=== PATIENT | male | born 1930 | race Caucasian/White ===

== ENCOUNTER 2018-02-18 19:05 | Inpatient (IN) | END 2018-03-06 21:28 | DRG 871 ==

== ENCOUNTER 2018-03-27 17:51 | Inpatient (IN) | payer MEDICARE, MEDICAID ==
[~2018-03-27] VITALS: Ht 177.8 cm; Wt 63.7 kg
[~2018-03-27 17:51] MED LIST: ACET325S PO; ASC500 PO; BISA10SU75 PR; DOCU-159 PO; ERTA1VIA IV; FAMO20TA18 PO; LACTINEX PO; MULT-105 PO; ONDA4TAB13 PO; POLY17PO6 PO; PROT946L PO; TAMS0.4C2 PO
[2018-03-27] MEDS ORDERED: ONDANSETRON 4 MG INJ IV STA (18:33)
[2018-03-27] MEDS ORDERED: SOD CHLORIDE 0.9% 1,000 ML IV STA (18:33)
--- NOTE | 2018-03-27 18:59 | ERD ---
ER Documentation Chief Complaint Chief Complaint BIB RA 83 fr Koko Rousseau: coffee ground emesis x1 HPI 88-year-old elderly man with multiple medical conditions brought in by EMS from [facility] facility for coffee-ground emesis. Episode occurred one time today. He has had no documented fevers, no diarrhea, no complaints of chest pain or shortness of breath although HPI was limited as patient is nonverbal. It was supplemented by reviewing past medical records, reviewing senior living records, speaking to EMS, nursing staff ROS All systems reviewed and are negative except as per history of present illness. Medications Home Meds Reported Medications Triamcinolone Acetonide* (Kenalog*) 0.1%-15GM Cr, 1 APPLIC TOP BID, #1 TUB 03/27/18 Collagenase* (Santyl*) 30 Gm Oint..gm., 1 APPLIC TOP .SOILED PRN for SOILED, #1 TUB 03/27/18 Hydrocodone/Acetaminophen ([place] 5-325 Tablet) 1 Each Tablet, 1 EACH PO Q6H PRN for MILD PAIN LEVEL 1-3, TAB 03/27/18 Hydrocodone/Acetaminophen ([place] 5-325 Tablet) 1 Each Tablet, 1 EACH PO DAILY PRN for WOUND CARE, TAB 03/27/18 Memantine* (Namenda* XR) 28 Mg Cap.spr.24, 28 MG PO DAILY, #30 TAB START TAKING-04/01/18 03/27/18 Memantine* (Namenda* XR) 21 Mg Cap.spr.24, 21 MG PO DAILY, #30 TAB FOR 7 DAYS,STOP TAKING 04/01/18 03/27/18 Enoxaparin Sodium* (Enoxaparin Sodium*) 30 Mg/0.3 Ml Syringe, 30 MG SC DAILY, SYR 03/27/18 Tamsulosin Hcl* (Tamsulosin Hcl*) 0.4 Mg Cap.er.24h, 0.4 MG PO HS, CAP 02/18/18 Protein Supplement (Promod) 946 Ml Liquid, 30 ML PO TID 02/18/18 Ondansetron Hcl* (Zofran*) 4 Mg Tab, 4 MG PO Q6H PRN for NAUSEA AND OR VOMITING, TAB 02/18/18 Multivitamin with Minerals (Multivitamins with Minerals) 1 Each Tablet, 1 EACH PO DAILY, TAB 02/18/18 Lactobacillus Acidophilus* (Lactinex*) 1 Tab Chew, 1 TAB PO BID, TAB 02/18/18 Famotidine* (Famotidine*) 20 Mg Tablet, 20 MG PO DAILY, #30 TAB 02/18/18 Docusate Sodium* (Docusate Sodium*) 100 Mg Capsule, 100 MG PO BID, #60 CAP 02/18/18 Bisacodyl* (Bisacodyl*) 10 Mg Supp, 10 MG UT Q24H for CONSTIPATION, SUPP 02/18/18 Ascorbic Acid (Vitamin C) 500 Mg Tab, 500 MG PO DAILY, TAB 02/18/18 Discontinued Reported Medications Polyethylene Glycol* (Miralax*) 17 Gm Powd.pack, 17 GM PO NEEDED, #30 PACKET 02/18/18 Ertapenem Sodium (Invanz) 1 Gm Vial.port, 1 GM IV DAILY FOR 7 DAYS. START DATE 02/13/18, END DATE 02/20/18. 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, chronic pressure ulcers, protein calorie malnutrition, functional quadriplegia, dementia, BPH, history of DVT Anesthesia Reaction: No Hx Cardiac Disorders: Yes (HTN) Hx Psychiatric Problems: No Hx Miscellaneous Medical Probl: Yes (sacral wound, HTN) Hx Alcohol Use: No Hx Substance Use: No Hx Tobacco Use: No Smoking Status: Never smoker Physical Exam Vitals Vital Signs Date Temp Pulse Resp B/P (MAP) Pulse Ox O2 O2 Flow FiO2 Time Delivery Rate 03/27/18 110 34 110/60 98 Room Air 19:33 (77) 03/27/18 99.1 122 14 101/63 100 Room Air 19:05 (76) 03/27/18 97.3 136 26 90/66 (74) 95 18:02 Physical Exam GENERAL: Elderly, chronically debilitated man, afebrile HEENT: Dry mucous membranes,, no cervical spine tenderness or step-off deformities, no goiter, no jaundice or icterus, extraocular movements intact without pain. NEURO: Eyes open, pupils equal round reactive to light, moves upper extremities, nonverbal, no facial asymmetry CARDIAC: Tachycardic and regular, no murmurs rubs or gallops LUNGS: Poor breath sounds, no crackles wheezing or stridor ABDOMEN: Firm nontender abdomen, no guarding or rigidity SKIN: Warm and dry to touch, no abrasions, contusions, or hematomas, no lacerations, no ecchymosis, no target lesions, and without ulcers EXTREMITIES: No clubbing cyanosis or edema, calves are bilaterally symmetrical, no Homans sign, no popliteal cord sign. Distal pulses equal and bilateral PSYCH: Unable to assess Result Diagram: 03/27/18 1840 03/27/18 1950 Results 24 hrs Laboratory Tests Test 03/27/18 18:40 03/27/18 19:00 03/27/18 19:50 White Blood Count 31.0 10^3/ul Red Blood Count 4.20 10^6/ul Hemoglobin 11.9 g/dl Hematocrit 37.8 % Mean Corpuscular Volume 90.0 fl Mean Corpuscular Hemoglobin 28.3 pg Mean Corpuscular 31.5 g/dl Hemoglobin Concent Red Cell Distribution Width 17.5 % Platelet Count 312 10^3/UL Mean Platelet Volume 12.3 fl Immature Granulocytes % 0.500 % Neutrophils % % Segmented Neutrophils 70 % % (Manual) Band Neutrophils % (Manual) 25 % Lymphocytes % % Lymphocytes % (Manual) 3 % Reactive Lymphocytes % (Manual) 1 % Monocytes % % Eosinophils % % Eosinophils % (Manual) 1 % Basophils % % Nucleated Red Blood Cells % 0.0 /100WBC Immature Granulocytes # 0.150 10^3/ul Neutrophils # 10^3/ul Neutrophils # (Manual) 24.1 10^3/ul Band Neutrophils # 7.7 10^3/ul Lymphocytes (Manual) 0.9 10^3/ul Lymphocytes # 10^3/ul Reactive Lymphocytes # 0.3 10^3/ul Monocytes # 10^3/ul Eosinophils # 10^3/ul Basophils # 10^3/ul Nucleated Red Blood Cells # 10^3/ul Platelet Estimate NORMAL Giant Platelets 2 % Polychromasia 1+ Poikilocytosis 1+ Anisocytosis 1+ Prothrombin Time 14.5 Sec Prothrombin Time Ratio 1.1 INR International 1.11 Normalized Ratio Activated Partial Thromboplast 30.5 Sec Time Urine Color YELLOW Urine Clarity CLOUDY Urine pH 5.0 Urine Specific [place] 1.013 Urine Ketones NEGATIVE mg/dL Urine Nitrite NEGATIVE mg/dL Urine Bilirubin NEGATIVE mg/dL Urine Urobilinogen 1+ mg/dL Urine Leukocyte Esterase 3+ Yoselin/ul Urine Microscopic RBC 6 /HPF Urine Microscopic WBC > 182 /HPF Urine Bacteria MANY /HPF Urine Hemoglobin 2+ mg/dL Urine Glucose NEGATIVE mg/dL Urine Total Protein 1+ mg/dl Sodium Level 146 mmol/L Potassium Level 5.2 mmol/L Chloride Level 109 mmol/L Carbon Dioxide Level 23 mmol/L Anion Gap 14 Blood Urea Nitrogen 86 mg/dl Creatinine 2.87 mg/dl Est Glomerular Filtrat mL/min Rate mL/min Glucose Level 118 mg/dl Calcium Level 9.0 mg/dl Total Bilirubin 0.1 mg/dl Direct Bilirubin 0.00 mg/dl Indirect Bilirubin 0.1 mg/dl Aspartate Amino 17 IU/L Transf (AST/SGOT) Alanine 15 IU/L Aminotransferase (ALT/SGPT) Alkaline Phosphatase 126 IU/L Troponin I 0.097 ng/ml Total Protein 6.2 g/dl Albumin 3.0 g/dl Globulin 3.20 g/dl Albumin/Globulin Ratio 0.93 Lipase < 10 U/L Current Medications Medications Dose Sig/Ruchi Start Time Status Last (Trade) Ordered Route PRN Stop Time Admin Dose Reason Admin Ondansetron 4 mg ONCE STAT 03/27/18 DC 03/27/18 HCl (Zofran IV 18:33 18:50 Inj) 03/27/18 18:36 40 mg ONCE ONCE 03/27/18 DC 03/27/18 Pantoprazole IV 19:00 18:51 (Protonix 03/27/18 Iv) 19:01 Sodium 1,000 ml @ Q30M STAT 03/27/18 DC 03/27/18 Chloride 2,000 mls/hr IV 18:33 18:50 03/27/18 19:02 Cefepime HCl 50 ml @ ONCE ONCE 03/27/18 DC 03/27/18 100 mls/hr IVPB 19:00 19:35 03/27/18 19:29 Sodium 1,000 ml @ Q10H IV 03/27/18 03/27/18 Chloride 100 mls/hr 19:45 20:04 IV Flush 3 ml PER 03/27/18 (NS 3 ml) PROTOCOL IV 20:00 Ondansetron 4 mg Q6H PRN 03/27/18 HCl (Zofran IV NAUSEA 20:00 Inj) AND/OR VOMITING 650 mg Q6H PRN 03/27/18 Acetaminophen PO PAIN 20:00 (Tylenol LEVEL 1-3 OR Tab) FEVER Morphine 2 mg Q4H PRN 03/27/18 Sulfate IV PAIN 20:00 (morphine) LEVEL 7-10 Famotidine 20 mg Q12 IV 03/27/18 03/27/18 (Pepcid Iv) 21:00 20:06 Enoxaparin 30 mg DAILY SC 03/28/18 DC Sodium 09:00 (Lovenox) 03/28/18 09:00 Cefepime HCl 50 ml @ Q8 IVPB 03/28/18 100 mls/hr 06:00 [facility] IV line was established patient was placed on vehicle monitor technician rhythm strip revealed a sinus rhythm at about 80 bpm with upright P and T waves. Patient was afebrile. Honeycutt catheter was replaced. EKG was performed, read by me: Revealed a sinus tachycardia at 121 bpm, normal axis, narrow QRS complex, no concerning ST elevations or depressions noted CT scan of the abdomen and pelvis without contrast was performed, IMPRESSION: No evidence of urolithiasis, obstructive uropathy or diverticulitis. Nonvisualization of appendix. Cholelithiasis. Nonobstructing right renal calculi. Right renal cyst. Thick-walled urinary bladder compatible with chronic partial bladder outlet obstruction. Mass effect on the base of bladder secondary to an markedly enlarged prostate. Correlation with PSA is suggested. Diffuse moderate distension small bowel loops with air-fluid levels. No transition or mass seen. Question ileus versus distal small bowel obstruction. Consider small-bowel follow-through. Mild bibasilar atelectasis. Vascular calcifications. IVC filter. Senescent degenerative changes spine.. I administered 2 L normal saline IV, Zofran 4 mg IV, Protonix 40 mg IV for possible upper GI bleed, dehydration, and vomiting. Patient also received cefepime 1 g IV CBC reveals a severe leukocytosis at 31, electrolytes revealed mild hyperkalemia 5.2 and acute kidney injury and dehydration with a BUN/creatinine of 86/2.9, liver function tests were normal, troponin was negative. Urinalysis was positive for infection. Patient has a possible small bowel obstruction and had one episode of coffee- ground emesis today he will be admitted to telemetry setting for continued medical management and GI consultation. I ordered nasogastric tube insertion. Critical Care: Time: 45 minutes, this was time separate from other billable procedures. Treatments/Evaluations: Close monitoring and treatment of unstable vital signs, cardiorespiratory, and neurologic status, while maintaining tight balance of fluid, respiratory, and cardiac interventions. Departure Diagnosis: Primary Impression: Vomiting Vomiting type: hematemesis Nausea presence: with nausea Qualified Codes: K92.0 - Hematemesis Additional Impressions: Dehydration Upper GI bleed Functional quadriplegia Acute UTI Small bowel obstruction Acute kidney injury Condition: Serious TAMIKO FAYE MD Mar 27, 2018 18:59
[2018-03-27] MEDS ORDERED: PANTOPRAZOLE 40 MG INJ IV ONE (19:00)
[2018-03-27] MEDS ORDERED: CEFEPIME 1GM/50 ML (PMX) 50 ML IVPB ONE (19:00)
[2018-03-27] MEDS ORDERED: ENOX30DI2 SC (19:23)
[2018-03-27] MEDS ORDERED: MEMA21CA PO (19:26)
[2018-03-27] MEDS ORDERED: MEMA28CA PO (19:28)
[2018-03-27] MEDS ORDERED: HYDR-4011 PO ×2 (19:29→19:31)
[2018-03-27] MEDS ORDERED: SAN30GM TOP (19:36)
[2018-03-27] MEDS ORDERED: TRIA15CR55 TOP (19:37)
[2018-03-27] MEDS ORDERED: NACL 0.9% 3 ML SYG IV SCH (20:00)
[2018-03-27] MEDS ORDERED: ONDANSETRON 4 MG INJ IV PRN (20:00)
[2018-03-27] MEDS ORDERED: morphine 2 MG INJ IV PRN (20:00)
[2018-03-27] MEDS: FAMOTIDINE 20 MG INJ IV SCH ×2 (20:04→20:06)
[2018-03-27] MEDS: SOD CHLORIDE 0.9% 1,000 ML IV SCH (20:04)
[2018-03-28] VITALS (22 sets, daily range): BP systolic 80–103; BP diastolic 50–64; PULSE 107–133; RESP 18–46; Ht 177.8 cm; Wt 63.7 kg
[2018-03-28] MEDS: SOD CHLORIDE 0.9% 1,000 ML IV SCH ×4 (05:47→21:46)
[2018-03-28] MEDS ORDERED: CEFEPIME 1GM/50 ML (PMX) 50 ML IVPB SCH (06:00)
[2018-03-28] MEDS ORDERED: ENOXAPARIN 30 MG/0.3 ML SYG SC SCH (09:00)
[2018-03-28] MEDS: FAMOTIDINE 20 MG INJ IV SCH (11:38)
[2018-03-28] MEDS ORDERED: DILTIAZEM-D5W 125MG/125ML DRIP 125 ML IV SCH (12:00)
[2018-03-28] MEDS ORDERED: SOD CHLORIDE 0.9% 500 ML IV ONE ×2 (12:00→21:00)
[2018-03-28] MEDS: NA POLYST SULFON 15 GM/60 ML BTL NGT ONE ×2 (12:22→14:00)
--- NOTE | 2018-03-28 14:55 | HP ---
Date/Time of Note Date/Time of Note DATE: 03/28/18 TIME: 14:52 Assessment/Plan VTE Prophylaxis Risk score (from [facility])>0 risk: 5 SCD applied (from [facility]): Yes SCD contraindicated: other Pharmacological prophylaxis: NA/contraindicated Pharm contraindication: bleeding Lines/Catheters IV Catheter Type (from [facility]): Saline Lock Urinary Cath still in place: Yes Reason Cath still needed: skin wounds contaminated by urine Assessment/Plan Hospital Course 1) urinary tract infection - IV antibiotics - IV fluids 2) possible GI bleed - follow H/H - PPI 3) dementia - stable Result Diagram: 03/28/18 0502 03/28/18 0502 Results 24hrs Laboratory Tests Test 03/27/18 18:40 03/27/18 19:00 03/27/18 19:50 03/28/18 05:02 White Blood 31.0 #H 16.9 #H Count Red Blood Count 4.20 #L 4.04 L Hemoglobin 11.9 #L 11.4 L Hematocrit 37.8 #L 36.1 L Mean 90.0 89.4 Corpuscular Volume Mean 28.3 L 28.2 L Corpuscular Hemoglobin Mean 31.5 L 31.6 L Corpuscular Hemoglobin Conc ent Red Cell 17.5 H 17.3 H Distribution Width Platelet Count 312 270 Mean Platelet 12.3 H 12.3 H Volume Immature 0.500 H 0.300 Granulocytes % Neutrophils % Segmented 70 68 Neutrophils % (Manual) Band 25 H 16 H Neutrophils % (Manual) Lymphocytes % Lymphocytes % 3 L 10 L (Manual) Reactive 1 H Lymphocytes % (Manual) Monocytes % Eosinophils % Eosinophils % 1 (Manual) Basophils % Nucleated Red 0.0 0.0 Blood Cells % Immature 0.150 H 0.050 H Granulocytes # Neutrophils # Neutrophils # 24.1 H 11.9 H (Manual) Band 7.7 H 2.7 H Neutrophils # Lymphocytes 0.9 1.6 (Manual) Lymphocytes # Reactive 0.3 H Lymphocytes # Monocytes # Eosinophils # Basophils # Nucleated Red Blood Cells # Platelet NORMAL NORMAL Estimate Giant Platelets 2 H 2 H Polychromasia 1+ Poikilocytosis 1+ 1+ Anisocytosis 1+ 1+ Prothrombin 14.5 Time Prothrombin 1.1 Time Ratio INR 1.11 International Normalized Rati o Activated 30.5 Partial Thrombo plast Time Urine Color YELLOW Urine Clarity CLOUDY A Urine pH 5.0 Urine Specific 1.013 [place] Urine Ketones NEGATIVE Urine Nitrite NEGATIVE Urine Bilirubin NEGATIVE Urine 1+ H Urobilinogen Urine Leukocyte 3+ H Esterase Urine 6 H Microscopic RBC Urine > 182 H Microscopic WBC Urine Bacteria MANY A Urine 2+ H Hemoglobin Urine Glucose NEGATIVE Urine Total 1+ H Protein Sodium Level 146 H 147 H Potassium Level 5.2 H 5.9 H Chloride Level 109 112 H Carbon Dioxide 23 20 L Level Anion Gap 14 H 15 H Blood Urea 86 H 99 H Nitrogen Creatinine 2.87 H 2.88 H Est Glomerular Filtrat Rate mL/min Glucose Level 118 116 Calcium Level 9.0 8.7 Total Bilirubin 0.1 L 0.3 Direct 0.00 0.00 Bilirubin Indirect 0.1 0.3 Bilirubin Aspartate Amino 17 20 Transf (AST/SGO T) Alanine 15 16 Aminotransferas e (ALT/SGPT) Alkaline 126 H 137 H Phosphatase Troponin I 0.097 Total Protein 6.2 6.1 Albumin 3.0 L 2.9 L Globulin 3.20 3.20 Albumin/Globuli 0.93 0.90 n Ratio Lipase < 10 L Monocytes % 5 (Manual) Metamyelocytes 1 H % (manual) Monocytes # 0.8 (Manual) Metamyelocytes 0.1 H # Microcytosis 1+ Spherocytes 1+ Target Cells 1+ Hemoglobin A1c 5.2 Test 03/28/18 13:00 03/28/18 13:07 Bedside Glucose 106 Blood Gas Blood arterial Specimen Source Arterial Blood 03/28/2018 1:32 Date Drawn :56 PM Arterial Blood 7.460 H pH (Temp corrected ) Arterial Blood 24.4 L pCO2 (Temp correct) Arterial Blood 74.7 L pO2 (Temp corrected ) Arterial Blood 17.0 L HCO3 Arterial Blood -5.5 L Base Excess Arterial Blood 94.8 L Oxygen Saturati on Ajith Test ACCEPTAB Arterial Blood Right Radial Gas Puncture Site Arterial 0.3 Blood Carboxyhe moglobin Arterial Blood 0.2 Methemoglobin Blood Gas A-a 89.0 H O2 Differential Oxyhemoglobin 94.3 Percent Blood Gas 37.0 Temperature Blood Gas NASAL CANNULA Modality FiO2 27.0 Blood Gas [place] Notified Whom Blood Gas 03/28/2018 1:40 Notified Time :12 PM HPI/ROS Admit Date/Time Admit Date/Time Mar 27, 2018 at 20:08 Hx of Present Illness Patient with dementia was transferred from [place] [facility] because of possible GI bleed and altered mental status. Patient was found to have an urinary tract infection and will be admitted for further treatment. PMH/Family/Social Past Medical History dementia Medications Current Medications Sodium Chloride 1,000 ml @ 150 mls/hr Q6H40M IV Last administered on 03/28/18at 09:42; Admin Dose 100 MLS/HR; Start 03/27/18 at 19:45 IV Flush (NS 3 ml) 3 ml PER PROTOCOL IV ; Start 03/27/18 at 20:00 Ondansetron HCl (Zofran Inj) 4 mg Q6H PRN IV NAUSEA AND/OR VOMITING; Start 03/27/18 at 20:00 Acetaminophen (Tylenol Tab) 650 mg Q6H PRN PO PAIN LEVEL 1-3 OR FEVER; Start 03/27/18 at 20:00 Morphine Sulfate (morphine) 2 mg Q4H PRN IV PAIN LEVEL 7-10; Start 03/27/18 at 20:00 Diltiazem HCl 125 ml @ 5 mls/hr TITRATE IV Last administered on 03/28/18at 11:38; Admin Dose 5 MLS/HR; Start 03/28/18 at 12:00 Famotidine (Pepcid Iv) 20 mg DAILY IV Last administered on 03/28/18at 11:38; Admin Dose 20 MG; Start 03/28/18 at 11:00 Cefepime HCl 50 ml @ 100 mls/hr Q12 IVPB ; Start 03/28/18 at 21:00 Coded Allergies: No Known Allergy (Unverified , 03/27/18) Past Surgical History Past Surgical Hx: other Family History Significant Family History: no pertinent family hx Social History Smoking Status: Never smoker Exam/Review of Systems Vital Signs Vitals Vital Signs Date Temp Pulse Resp B/P (MAP) Pulse Ox O2 O2 Flow FiO2 Time Delivery Rate 03/28/18 113 26 95/54 (68) 96 Nasal 13:21 Cannula 03/28/18 2.0 12:45 03/28/18 99.9 07:08 Intake and Output 03/27/18 03/27/18 03/28/18 1414:59 22:59 06:59 IntakeIntake Total 1000 ml 500 ml OutputOutput Total 1950 ml BalanceBalance 1000 ml -1450 ml Exam Constitutional: well developed, frail Head: normocephalic, atraumatic Neck: supple Respiratory: diminished breath sounds Cardiovascular: regular rate and rhythm Gastrointestinal: soft, non-tender Extremities: normal pulses DEENA BASILIO Mar 28, 2018 14:55
[2018-03-28] MEDS ORDERED: NA POLYST SULFON 15 GM/60 ML BTL PR ONE (15:30)
[2018-03-28] MEDS: CEFEPIME 1GM/50 ML (PMX) 50 ML IVPB SCH (21:46)
[2018-03-29] VITALS (25 sets, daily range): BP systolic 69–114; BP diastolic 33–67; PULSE 75–106; RESP 22–42
[2018-03-29] MEDS ORDERED: SOD CHLORIDE 0.9% 1,000 ML IV SCH (00:30)
[2018-03-29] MEDS: SOD CHLORIDE 0.9% 1,000 ML IV SCH ×2 (03:59→09:50)
[2018-03-29] MEDS: FAMOTIDINE 20 MG INJ IV SCH (08:34)
[2018-03-29] MEDS: CEFEPIME 1GM/50 ML (PMX) 50 ML IVPB SCH ×2 (08:37→20:00)
--- NOTE | 2018-03-29 11:09 | PN ---
Date/Time of Note Date/Time of Note DATE: 03/29/18 TIME: 11:07 Assessment/Plan VTE Prophylaxis Risk score (from [facility]0 risk: 6 SCD applied (from [facility]): Yes Pharmacological prophylaxis: LMWH Lines/Catheters [facility] IV Urinary Cath still in place: Yes Reason Cath still needed: skin wounds contaminated by urine Assessment/Plan Hospital Course 1) urinary tract infection - IV antibiotics - IV fluids 2) possible GI bleed - follow H/H - PPI 3) dementia - stable Result Diagram: 03/29/18 0604 03/29/18 0454 Results 24hrs Laboratory Tests Test 03/28/18 13:00 03/28/18 13:07 03/28/18 22:23 03/29/18 04:54 Bedside Glucose 106 Blood Gas Blood arterial Blood Specimen arterial Source Arterial Blood 03/28/2018 1:32 03/28/2018 10: Date Drawn :56 PM 25:26 PM Arterial Blood 7.460 H 7.401 pH (Temp corrected ) Arterial Blood 24.4 L 26.3 L pCO2 (Temp correct) Arterial Blood 74.7 L 66.6 L pO2 (Temp corrected ) Arterial Blood 17.0 L 16.0 L HCO3 Arterial Blood -5.5 L -7.5 L Base Excess Arterial Blood 94.8 L 91.6 L Oxygen Saturati on Ajith Test ACCEPTAB N/A Arterial Blood Right Radial Right Gas Brachial Puncture Site Arterial 0.3 0.3 Blood Carboxyhe moglobin Arterial Blood 0.2 0.3 Methemoglobin Blood Gas A-a 89.0 H 620.1 H O2 Differential Oxyhemoglobin 94.3 91.1 L Percent Blood Gas 37.0 37.0 Temperature Blood Gas NASAL CANNULA MASK - NRB Modality FiO2 27.0 100.0 Blood Gas [place] up Notified Whom Blood Gas 03/28/2018 1:40 03/28/2018 10: Notified Time :12 PM 35:55 PM Sodium Level 148 H Potassium Level 5.1 Chloride Level 123 H Carbon Dioxide 15 L Level Anion Gap 10 # Blood Urea 116 H Nitrogen Creatinine 3.66 H Est Glomerular Filtrat Rate mL/min Glucose Level 109 Calcium Level 7.5 L Test 03/29/18 06:04 03/29/18 10:00 White Blood 15.8 H Count Red Blood Count 3.40 L Hemoglobin 9.5 L Hematocrit 29.8 L Mean 87.6 Corpuscular Volume Mean 27.9 L Corpuscular Hemoglobin Mean 31.9 L Corpuscular Hemoglobin Conc ent Red Cell 17.5 H Distribution Width Platelet Count 172 # Mean Platelet 12.2 H Volume Immature 1.000 H Granulocytes % Neutrophils % Segmented 65 Neutrophils % (Manual) Band 15 H Neutrophils % (Manual) Lymphocytes % Lymphocytes % 7 L (Manual) Reactive 2 H Lymphocytes % (Manual) Monocytes % Monocytes % 9 (Manual) Eosinophils % Basophils % Metamyelocytes 1 H % (manual) Myelocytes % 1 H (Manual) Nucleated Red 0.0 Blood Cells % Immature 0.160 H Granulocytes # Neutrophils # Neutrophils # 10.6 H (Manual) Band 2.3 H Neutrophils # Lymphocytes 1.1 (Manual) Lymphocytes # Reactive 0.3 H Lymphocytes # Monocytes # Monocytes # 1.4 H (Manual) Eosinophils # Basophils # Metamyelocytes 0.1 H # Myelocytes # 0.1 H Nucleated Red Blood Cells # Toxic 1+ Granulation Platelet NORMAL Estimate Polychromasia 1+ Poikilocytosis 3+ Anisocytosis 1+ Blood Gas Blood arterial Specimen Source Arterial Blood 03/29/2018 10:0 Date Drawn 5:49 AM Arterial Blood 7.398 pH (Temp corrected ) Arterial Blood 27.5 L pCO2 (Temp correct) Arterial Blood 81.2 pO2 (Temp corrected ) Arterial Blood 16.6 L HCO3 Arterial Blood -6.9 L Base Excess Arterial Blood 95.0 Oxygen Saturati on Ajith Test ACCEPTAB Arterial Blood Left Radial Gas Puncture Site Arterial 0.3 Blood Carboxyhe moglobin Arterial Blood 0.4 Methemoglobin Blood Gas A-a 323.6 H O2 Differential Oxyhemoglobin 94.3 Percent Blood Gas 37.0 Temperature Blood Gas MASK - SIMPLE Modality FiO2 61.0 Blood Gas [place] Notified Whom Blood Gas 03/29/2018 10:2 Notified Time 1:40 AM Subjective 24 Hr Interval Summary Free Text/Dictation Patient was having tachypneia and so the patient was transferred to ICU for closer monitoring. Patient is on face mask with good saturation. Exam/Review of Systems Vital Signs Vitals Vital Signs Date Temp Pulse Resp B/P (MAP) Pulse Ox O2 O2 Flow FiO2 Time Delivery Rate 03/29/18 97 41 69/33 (45) 92 Mask 10.0 10:00 12/29/18 98.8 08:00 03/29/18 100 06:06 Intake and Output 03/28/18 03/28/18 03/29/18 1515:00 23:00 07:00 IntakeIntake Total 1300 ml 1300 ml 1375 ml OutputOutput Total 60 ml 75 ml 165 ml BalanceBalance 1240 ml 1225 ml 1210 ml Exam Constitutional: well developed Head: normocephalic, atraumatic Neck: supple Respiratory: diminished breath sounds Cardiovascular: regular rate and rhythm Gastrointestinal: soft, non-tender Extremities: normal pulses Medications Medications Current Medications Sodium Chloride 1,000 ml @ 150 mls/hr Q6H40M IV Last administered on 03/29/18at 09:50; Admin Dose 150 MLS/HR; Start 03/27/18 at 19:45 IV Flush (NS 3 ml) 3 ml PER PROTOCOL IV ; Start 03/27/18 at 20:00 Ondansetron HCl (Zofran Inj) 4 mg Q6H PRN IV NAUSEA AND/OR VOMITING; Start 03/27/18 at 20:00 Acetaminophen (Tylenol Tab) 650 mg Q6H PRN PO PAIN LEVEL 1-3 OR FEVER; Start 03/27/18 at 20:00 Morphine Sulfate (morphine) 2 mg Q4H PRN IV PAIN LEVEL 7-10; Start 03/27/18 at 20:00 Diltiazem HCl 125 ml @ 5 mls/hr TITRATE IV Last administered on 03/28/18at 11:38; Admin Dose 5 MLS/HR; Start 03/28/18 at 12:00 Famotidine (Pepcid Iv) 20 mg DAILY IV Last administered on 03/29/18at 08:34; Admin Dose 20 MG; Start 03/28/18 at 11:00 Cefepime HCl 50 ml @ 100 mls/hr Q12 IVPB Last administered on 03/29/18at 08:37; Admin Dose 100 MLS/HR; Start 03/28/18 at 21:00 Sodium Chloride 1,000 ml @ 0 mls/hr Q0M IV ; Start 03/29/18 at 00:30 DEENA BASILIO Mar 29, 2018 11:08
--- NOTE | 2018-03-29 13:12 | CONS ---
Date/Time of Note Date/Time of Note DATE: 03/29/18 TIME: 13:04 Assessment/Plan Assessment/Plan Assessment/Plan IMP: 1. Respiratory Failure--with hypoxemic component. Also notable tachypnea likely due to metabolic acidosis 2/2 FLORES 2. Urosepsis 3. FLORES--likely pre-renal vs.ATN 4. Metabolic Acidosis 2/2 #3 5. Dementia RECS: 1. IVF's---change to D5W with 3amps NaHCO3 2. IV Abx 3. F/U cultures 4. IV Access with CVC 5. Observe closely for need for intubation 6. Contact next of kin to discuss goals of care 7. Urine lytes 8. Serial lactates Result Diagram: 03/29/18 0604 03/29/18 0454 Results 24hrs Laboratory Tests Test 03/28/18 13:07 03/28/18 22:23 03/29/18 04:54 03/29/18 06:04 Blood Gas Blood arterial Blood Specimen arterial Source Arterial Blood 03/28/2018 1:32 03/28/2018 10: Date Drawn :56 PM 25:26 PM Arterial Blood 7.460 H 7.401 pH (Temp corrected ) Arterial Blood 24.4 L 26.3 L pCO2 (Temp correct) Arterial Blood 74.7 L 66.6 L pO2 (Temp corrected ) Arterial Blood 17.0 L 16.0 L HCO3 Arterial Blood -5.5 L -7.5 L Base Excess Arterial Blood 94.8 L 91.6 L Oxygen Saturati on Ajith Test ACCEPTAB N/A Arterial Blood Right Radial Right Gas Brachial Puncture Site Arterial 0.3 0.3 Blood Carboxyhe moglobin Arterial Blood 0.2 0.3 Methemoglobin Blood Gas A-a 89.0 H 620.1 H O2 Differential Oxyhemoglobin 94.3 91.1 L Percent Blood Gas 37.0 37.0 Temperature Blood Gas NASAL CANNULA MASK - NRB Modality FiO2 27.0 100.0 Blood Gas [place] up Notified Whom Blood Gas 03/28/2018 1:40 03/28/2018 10: Notified Time :12 PM 35:55 PM Sodium Level 148 H Potassium Level 5.1 Chloride Level 123 H Carbon Dioxide 15 L Level Anion Gap 10 # Blood Urea 116 H Nitrogen Creatinine 3.66 H Est Glomerular Filtrat Rate mL/min Glucose Level 109 Calcium Level 7.5 L White Blood 15.8 H Count Red Blood Count 3.40 L Hemoglobin 9.5 L Hematocrit 29.8 L Mean 87.6 Corpuscular Volume Mean 27.9 L Corpuscular Hemoglobin Mean 31.9 L Corpuscular Hemoglobin Conc ent Red Cell 17.5 H Distribution Width Platelet Count 172 # Mean Platelet 12.2 H Volume Immature 1.000 H Granulocytes % Neutrophils % Segmented 65 Neutrophils % (Manual) Band 15 H Neutrophils % (Manual) Lymphocytes % Lymphocytes % 7 L (Manual) Reactive 2 H Lymphocytes % (Manual) Monocytes % Monocytes % 9 (Manual) Eosinophils % Basophils % Metamyelocytes 1 H % (manual) Myelocytes % 1 H (Manual) Nucleated Red 0.0 Blood Cells % Immature 0.160 H Granulocytes # Neutrophils # Neutrophils # 10.6 H (Manual) Band 2.3 H Neutrophils # Lymphocytes 1.1 (Manual) Lymphocytes # Reactive 0.3 H Lymphocytes # Monocytes # Monocytes # 1.4 H (Manual) Eosinophils # Basophils # Metamyelocytes 0.1 H # Myelocytes # 0.1 H Nucleated Red Blood Cells # Toxic 1+ Granulation Platelet NORMAL Estimate Polychromasia 1+ Poikilocytosis 3+ Anisocytosis 1+ Test 03/29/18 10:00 Blood Gas Blood arterial Specimen Source Arterial Blood 03/29/2018 10:0 Date Drawn 5:49 AM Arterial Blood 7.398 pH (Temp corrected ) Arterial Blood 27.5 L pCO2 (Temp correct) Arterial Blood 81.2 pO2 (Temp corrected ) Arterial Blood 16.6 L HCO3 Arterial Blood -6.9 L Base Excess Arterial Blood 95.0 Oxygen Saturati on Ajith Test ACCEPTAB Arterial Blood Left Radial Gas Puncture Site Arterial 0.3 Blood Carboxyhe moglobin Arterial Blood 0.4 Methemoglobin Blood Gas A-a 323.6 H O2 Differential Oxyhemoglobin 94.3 Percent Blood Gas 37.0 Temperature Blood Gas MASK - SIMPLE Modality FiO2 61.0 Blood Gas [place] Notified Whom Blood Gas 03/29/2018 10:2 Notified Time 1:40 AM Consultation Date/Type/Reason Admit Date/Time Mar 27, 2018 at 20:08 Date of Consultation: Mar 29, 2018 Type of Consult Pulm/CCM Reason for Consultation Resp Failure Hx of Present Illness Briefly, this is a 87-year-old gentleman with history of dementia, functional quadriplegia hypertension, BPH history of right humerus fracture complicated by DVT s/p IVC filter, E. coli urinary tract infection, and multiple pressure ulcers admitted with AMS due to urosepsis with associated FLORES and hypoxemic respiratory failure. CT abdomen also notable for possible PSBO. Subjective hx not possible: pt non-verbal Past Medical History Medical History: deep vein thrombosis Medications Current Medications Sodium Chloride 1,000 ml @ 150 mls/hr Q6H40M IV Last administered on 03/29/18at 09:50; Admin Dose 150 MLS/HR; Start 03/27/18 at 19:45 IV Flush (NS 3 ml) 3 ml PER PROTOCOL IV ; Start 03/27/18 at 20:00 Ondansetron HCl (Zofran Inj) 4 mg Q6H PRN IV NAUSEA AND/OR VOMITING; Start 03/27/18 at 20:00 Acetaminophen (Tylenol Tab) 650 mg Q6H PRN PO PAIN LEVEL 1-3 OR FEVER; Start 03/27/18 at 20:00 Morphine Sulfate (morphine) 2 mg Q4H PRN IV PAIN LEVEL 7-10; Start 03/27/18 at 20:00 Diltiazem HCl 125 ml @ 5 mls/hr TITRATE IV Last administered on 03/28/18at 11:38; Admin Dose 5 MLS/HR; Start 03/28/18 at 12:00 Famotidine (Pepcid Iv) 20 mg DAILY IV Last administered on 03/29/18at 08:34; Admin Dose 20 MG; Start 03/28/18 at 11:00 Cefepime HCl 50 ml @ 100 mls/hr Q12 IVPB Last administered on 03/29/18at 08:37; Admin Dose 100 MLS/HR; Start 03/28/18 at 21:00 Sodium Chloride 1,000 ml @ 0 mls/hr Q0M IV ; Start 03/29/18 at 00:30 Allergies: Coded Allergies: No Known Allergy (Unverified , 03/27/18) Past Surgical History Past Surgical Hx: other Family History Significant Family History: no pertinent family hx Social History Alcohol Use: none Smoking Status: Never smoker Drug Use: none Exam/Review of Systems Vital Signs Vitals Vital Signs Date Temp Pulse Resp B/P (MAP) Pulse Ox O2 O2 Flow FiO2 Time Delivery Rate 03/29/18 95 38 96/52 (67) 96 Mask 10.0 12:22 12/29/18 98.2 12:00 03/29/18 100 06:06 Intake and Output 03/28/18 03/28/18 03/29/18 1515:00 23:00 07:00 IntakeIntake Total 1300 ml 1300 ml 1375 ml OutputOutput Total 60 ml 75 ml 165 ml BalanceBalance 1240 ml 1225 ml 1210 ml Exam Constitutional: non-verbal Psych: confusion Head: normocephalic, atraumatic Eyes: nl conjunctiva, EOMI, nl lids, nl sclera ENMT: nl external ears & nose, nl nasal mucosa & septum, mucosa pink and moist Neck: supple, non-tender Respiratory: crackles/rales Cardiovascular: regular rate and rhythm, nl pulses Gastrointestinal: soft, nl liver, spleen, non-tender, distended Musculoskeletal: nl extremities to inspection Extremities: normal pulses Neurological: confused, DTR's symmetric Medications Medications Current Medications Sodium Chloride 1,000 ml @ 150 mls/hr Q6H40M IV Last administered on 03/29/18at 09:50; Admin Dose 150 MLS/HR; Start 03/27/18 at 19:45 IV Flush (NS 3 ml) 3 ml PER PROTOCOL IV ; Start 03/27/18 at 20:00 Ondansetron HCl (Zofran Inj) 4 mg Q6H PRN IV NAUSEA AND/OR VOMITING; Start 03/27/18 at 20:00 Acetaminophen (Tylenol Tab) 650 mg Q6H PRN PO PAIN LEVEL 1-3 OR FEVER; Start 03/27/18 at 20:00 Morphine Sulfate (morphine) 2 mg Q4H PRN IV PAIN LEVEL 7-10; Start 03/27/18 at 20:00 Diltiazem HCl 125 ml @ 5 mls/hr TITRATE IV Last administered on 03/28/18at 11:38; Admin Dose 5 MLS/HR; Start 03/28/18 at 12:00 Famotidine (Pepcid Iv) 20 mg DAILY IV Last administered on 03/29/18at 08:34; Admin Dose 20 MG; Start 03/28/18 at 11:00 Cefepime HCl 50 ml @ 100 mls/hr Q12 IVPB Last administered on 03/29/18at 08:37; Admin Dose 100 MLS/HR; Start 03/28/18 at 21:00 Sodium Chloride 1,000 ml @ 0 mls/hr Q0M IV ; Start 03/29/18 at 00:30 JOSE PORTILLO MD Mar 29, 2018 13:12
[2018-03-29] MEDS ORDERED: DEXTROSE 5% WATER 500 ML BAG IV ONE (13:30)
[2018-03-29] MEDS ORDERED: LIDOCAINE 100 MG SYRINGE ONE (13:31)
--- NOTE | 2018-03-29 13:49 | PRO ---
Date/Time of Note Date/Time of Note DATE: 03/29/18 TIME: 13:48 Femoral CV Placement PROCEDURE NOTE PROCEDURE: right subclavian central venous catheter INDICATION: Need for intravenous access PROCEDURE POTTERY DECORATION DESIGNER: Sulma CONSENT: Consent was implied due to the emergent nature of the procedure PROCEDURE SUMMARY: The patient was prepped and draped in the usual sterile manner. 1% lidocaine was used to numb the region. The finder needle was used to locate the right subclavian vein. A triple-lumen 8.5 Yi 20 cm catheter was inserted using the Seldinger technique to 15 cm. All ports aspirate and flushed without difficulty. The patient tolerated the procedure well without any immediate complications. The line was sutured into place and the area was cleaned and Tegaderm applied. ESTIMATED BLOOD LOSS: 5 ml JOSE PORTILLO MD Mar 29, 2018 13:49
[2018-03-29] MEDS: LACTATED RINGER'S 500 ML IV SCH ×2 (14:00→16:00)
[2018-03-29] MEDS: SODIUM BICARBONATE (IV ADD) 150 MEQ in DEXTROSE 5% 1,000 ML IV SCH (16:59)
[2018-03-30] VITALS (29 sets, daily range): BP systolic 78–104; BP diastolic 35–63; PULSE 71–96; RESP 16–25
[2018-03-30] MEDS: SODIUM BICARBONATE (IV ADD) 150 MEQ in DEXTROSE 5% 1,000 ML IV SCH ×2 (01:58→06:16)
[2018-03-30] MEDS: CEFEPIME 1GM/50 ML (PMX) 50 ML IVPB SCH ×2 (10:22→21:51)
[2018-03-30] MEDS: FAMOTIDINE 20 MG INJ IV SCH (10:22)
--- NOTE | 2018-03-30 12:40 | CONS ---
Date/Time of Note Date/Time of Note DATE: 03/30/18 TIME: 12:36 Consult Date/Type/Reason Admit Date/Time Mar 27, 2018 at 20:08 Initial Consult Date 03/29/18 Type of Consultation: Pulm/CCM Subjective Respiratory status improved on NaHCO3 gtt. Urine output remains low. Objective Vital Signs Date Temp Pulse Resp B/P (MAP) Pulse Ox O2 O2 Flow FiO2 Time Delivery Rate 03/30/18 79 12:24 03/30/18 21 96/55 (69) 98 Nasal 3.0 10:00 Cannula 03/30/18 97.2 08:00 03/29/18 100 06:06 Intake and Output 03/29/18 03/29/18 03/30/18 1515:00 23:00 07:00 IntakeIntake Total 975 ml 600 ml 1200 ml OutputOutput Total 405 ml 475 ml 260 ml BalanceBalance 570 ml 125 ml 940 ml Exam HEENT: Neck supple; no JVD; no LAD CVS: RRR, S1 and S2 CHEST: Clear ABD: Soft, NT, + BS EXT: No c/c/e Results/Medications Result Diagram: 03/30/18 0425 03/30/18 0425 Results 24 hrs Laboratory Tests Test 03/30/18 04:25 03/30/18 04:30 03/30/18 05:00 White Blood Count 13.3 H Red Blood Count 2.67 #L Hemoglobin 7.6 L Hematocrit 22.9 #L Mean Corpuscular Volume 85.8 Mean Corpuscular 28.5 L Hemoglobin Mean Corpuscular 33.2 Hemoglobin Concent Red Cell Distribution 17.4 H Width Platelet Count 129 #L Mean Platelet Volume 12.6 H Immature Granulocytes % 1.000 H Neutrophils % Segmented Neutrophils 79 H % (Manual) Band Neutrophils % 5 H (Manual) Lymphocytes % Lymphocytes % (Manual) 10 L Monocytes % Monocytes % (Manual) 5 Eosinophils % Basophils % Promyelocytes % (Manual) 1 H Nucleated Red Blood Cells 0.0 % Immature Granulocytes # 0.130 H Neutrophils # Neutrophils # (Manual) 10.6 H Band Neutrophils # 0.6 Lymphocytes (Manual) 1.3 Lymphocytes # Monocytes # Monocytes # (Manual) 0.6 Eosinophils # Basophils # Promyelocytes # 0.1 H Nucleated Red Blood Cells # Platelet Estimate DECREASED Giant Platelets 2 H Poikilocytosis 1+ Target Cells 1+ Sodium Level 155 H Potassium Level 3.4 L Chloride Level 124 H Carbon Dioxide Level 23 Anion Gap 8 Blood Urea Nitrogen 129 H Creatinine 3.22 H Est Glomerular Filtrat Rate mL/min Glucose Level 117 Calcium Level 7.3 L Thyroid Stimulating 0.826 Hormone (TSH) Lactic Acid Level 2.2 *H Blood Gas Specimen Blood arterial Source Arterial Blood Date 03/30/2018 5:30:44 AM Drawn Arterial Blood pH 7.497 H (Temp corrected) Arterial Blood pCO2 28.6 L (Temp correct) Arterial Blood pO2 74.4 L (Temp corrected) Arterial Blood HCO3 21.7 L Arterial Blood Base -0.7 Excess Arterial Blood 95.1 Oxygen Saturation Ajith Test ACCEPTAB Arterial Blood Gas Right Radial Puncture Site Arterial 0.2 Blood Carboxyhemoglobin Arterial Blood 0.5 Methemoglobin Blood Gas A-a O2 91.5 H Differential Oxyhemoglobin Percent 94.4 Blood Gas Temperature 37.0 Blood Gas Modality NASAL CANNULA FiO2 28.0 Blood Gas Notified Whom MA Blood Gas Notified Time 03/30/2018 6:00:51 AM Medications Current Medications Ondansetron HCl (Zofran Inj) 4 mg Q6H PRN IV NAUSEA AND/OR VOMITING; Start 03/27/18 at 20:00 Acetaminophen (Tylenol Tab) 650 mg Q6H PRN PO PAIN LEVEL 1-3 OR FEVER; Start 03/27/18 at 20:00 Morphine Sulfate (morphine) 2 mg Q4H PRN IV PAIN LEVEL 7-10; Start 03/27/18 at 20:00 Diltiazem HCl 125 ml @ 5 mls/hr TITRATE IV Last administered on 03/28/18at 11:38; Admin Dose 5 MLS/HR; Start 03/28/18 at 12:00 Famotidine (Pepcid Iv) 20 mg DAILY IV Last administered on 03/30/18at 10:22; Admin Dose 20 MG; Start 03/28/18 at 11:00 Cefepime HCl 50 ml @ 100 mls/hr Q12 IVPB Last administered on 03/30/18at 10:22; Admin Dose 100 MLS/HR; Start 03/28/18 at 21:00 Sodium Bicarbonate 150 meq/Dextrose 1,150 ml @ 100 mls/hr [id number] IV Last a dministered on 12/30/18at 06:16; Admin Dose 100 MLS/HR; Start 03/29/18 at 15:00 Assessment/Plan Chief Complaint/Hosp Course Briefly, this is a 87-year-old gentleman with history of dementia, functional quadriplegia hypertension, BPH history of right humerus fracture complicated by DVT s/p IVC filter, E. coli urinary tract infection, and multiple pressure ulcers admitted with AMS due to urosepsis with associated FLORES and hypoxemic respiratory failure. CT abdomen also notable for possible PSBO. Additional Assessment/Plan IMP: 1. Respiratory Failure--with hypoxemic component. Tachypnea likely due to metabolic acidosis 2/2 FLORES 2. Urosepsis 3. FLORES--likely pre-renal vs.ATN 4. Metabolic Acidosis 2/2 #3--improved 5. AMS--Dementia and uremia 6. HyperNa+ 7. Anemia RECS: 1. IVF's---change to D5W with 2 amps NaHCO3 given Na+ level. Also lower rate 2. IV Abx 3. Renal U/S 4. Urine lytres for FeNa+ 5. Renal consult 40 min cc time case d/w staff JOSE PORTILLO MD Mar 30, 2018 12:40
--- NOTE | 2018-03-30 12:43 | PN ---
Date/Time of Note Date/Time of Note DATE: 03/30/18 TIME: 12:43 Assessment/Plan VTE Prophylaxis Risk score (from Nsg)>0 risk: 9 SCD applied (from Nsg): Yes Pharmacological prophylaxis: LMWH Lines/Catheters IV Catheter Type (from Nrsg): Central Line Central line still needed: Yes Urinary Cath still in place: Yes Reason Cath still needed: skin wounds contaminated by urine Assessment/Plan Hospital Course 1) urinary tract infection - IV antibiotics - IV fluids 2) possible GI bleed - follow H/H - PPI 3) dementia - stable Result Diagram: 03/30/18 0425 03/30/18 0425 Results 24hrs Laboratory Tests Test 03/30/18 04:25 03/30/18 04:30 03/30/18 05:00 White Blood Count 13.3 H Red Blood Count 2.67 #L Hemoglobin 7.6 L Hematocrit 22.9 #L Mean Corpuscular Volume 85.8 Mean Corpuscular 28.5 L Hemoglobin Mean Corpuscular 33.2 Hemoglobin Concent Red Cell Distribution 17.4 H Width Platelet Count 129 #L Mean Platelet Volume 12.6 H Immature Granulocytes % 1.000 H Neutrophils % Segmented Neutrophils 79 H % (Manual) Band Neutrophils % 5 H (Manual) Lymphocytes % Lymphocytes % (Manual) 10 L Monocytes % Monocytes % (Manual) 5 Eosinophils % Basophils % Promyelocytes % (Manual) 1 H Nucleated Red Blood Cells 0.0 % Immature Granulocytes # 0.130 H Neutrophils # Neutrophils # (Manual) 10.6 H Band Neutrophils # 0.6 Lymphocytes (Manual) 1.3 Lymphocytes # Monocytes # Monocytes # (Manual) 0.6 Eosinophils # Basophils # Promyelocytes # 0.1 H Nucleated Red Blood Cells # Platelet Estimate DECREASED Giant Platelets 2 H Poikilocytosis 1+ Target Cells 1+ Sodium Level 155 H Potassium Level 3.4 L Chloride Level 124 H Carbon Dioxide Level 23 Anion Gap 8 Blood Urea Nitrogen 129 H Creatinine 3.22 H Est Glomerular Filtrat Rate mL/min Glucose Level 117 Calcium Level 7.3 L Thyroid Stimulating 0.826 Hormone (TSH) Lactic Acid Level 2.2 *H Blood Gas Specimen Blood arterial Source Arterial Blood Date 03/30/2018 5:30:44 AM Drawn Arterial Blood pH 7.497 H (Temp corrected) Arterial Blood pCO2 28.6 L (Temp correct) Arterial Blood pO2 74.4 L (Temp corrected) Arterial Blood HCO3 21.7 L Arterial Blood Base -0.7 Excess Arterial Blood 95.1 Oxygen Saturation Ajith Test ACCEPTAB Arterial Blood Gas Right Radial Puncture Site Arterial 0.2 Blood Carboxyhemoglobin Arterial Blood 0.5 Methemoglobin Blood Gas A-a O2 91.5 H Differential Oxyhemoglobin Percent 94.4 Blood Gas Temperature 37.0 Blood Gas Modality NASAL CANNULA FiO2 28.0 Blood Gas Notified Whom MA Blood Gas Notified Time 03/30/2018 6:00:51 AM Subjective 24 Hr Interval Summary Free Text/Dictation Patient more awake, still breathing slightly labored Exam/Review of Systems Vital Signs Vitals Vital Signs Date Temp Pulse Resp B/P (MAP) Pulse Ox O2 O2 Flow FiO2 Time Delivery Rate 03/30/18 79 12:24 03/30/18 21 96/55 (69) 98 Nasal 3.0 10:00 Cannula 03/30/18 97.2 08:00 03/29/18 100 06:06 Intake and Output 03/29/18 03/29/18 03/30/18 1414:59 22:59 06:59 IntakeIntake Total 1150 ml 600 ml 1100 ml OutputOutput Total 370 ml 500 ml 265 ml BalanceBalance 780 ml 100 ml 835 ml Exam Constitutional: well developed Head: normocephalic, atraumatic Neck: supple Respiratory: diminished breath sounds Cardiovascular: regular rate and rhythm Gastrointestinal: soft, non-tender Extremities: normal pulses Medications Medications Current Medications Ondansetron HCl (Zofran Inj) 4 mg Q6H PRN IV NAUSEA AND/OR VOMITING; Start 03/27/18 at 20:00 Acetaminophen (Tylenol Tab) 650 mg Q6H PRN PO PAIN LEVEL 1-3 OR FEVER; Start 03/27/18 at 20:00 Morphine Sulfate (morphine) 2 mg Q4H PRN IV PAIN LEVEL 7-10; Start 03/27/18 at 20:00 Diltiazem HCl 125 ml @ 5 mls/hr TITRATE IV Last administered on 03/28/18at 11:38; Admin Dose 5 MLS/HR; Start 03/28/18 at 12:00 Famotidine (Pepcid Iv) 20 mg DAILY IV Last administered on 03/30/18at 10:22; Admin Dose 20 MG; Start 12/28/18 at 11:00 Cefepime HCl 50 ml @ 100 mls/hr Q12 IVPB Last administered on 03/30/18at 10:22; Admin Dose 100 MLS/HR; Start 03/28/18 at 21:00 Sodium Bicarbonate 150 meq/Dextrose 1,150 ml @ 100 mls/hr [id number] IV Last administered on 03/30/18at 06:16; Admin Dose 100 MLS/HR; Start 03/29/18 at 15:00 DEENA BASILIO Mar 30, 2018 12:43
[2018-03-30] MEDS: SODIUM BICARBONATE (IV ADD) 100 MEQ in DEXTROSE 5% 1,000 ML IV SCH (15:12)
[2018-03-30] MEDS ORDERED: SOD CHLORIDE 0.9% 500 ML IV ONE (19:30)
[2018-03-30] MEDS ORDERED: DOPamine-D5W 1.6 MG/ML 250 ML IV SCH (21:00)
[2018-03-30] MEDS: POTASSIUM CHLORIDE 50 ML IVPB SCH ×2 (21:51→23:43)
[2018-03-31] VITALS (96 sets, daily range): BP systolic 73–126; BP diastolic 32–107; PULSE 71–122; RESP 12–50
[2018-03-31] MEDS ORDERED: COLLAGENASE 5 GM (UD JAR) TOP ONE (07:47)
[2018-03-31] MEDS: COLLAGENASE 5 GM (UD JAR) TOP SCH (08:22)
[2018-03-31] MEDS: FAMOTIDINE 20 MG INJ IV SCH (08:22)
[2018-03-31] MEDS: SODIUM BICARBONATE (IV ADD) 100 MEQ in DEXTROSE 5% 1,000 ML IV SCH (08:26)
[2018-03-31] MEDS: CEFEPIME 1GM/50 ML (PMX) 50 ML IVPB SCH (08:32)
--- NOTE | 2018-03-31 10:16 | CONS ---
Date/Time of Note Date/Time of Note DATE: 03/31/18 TIME: 10:08 Consult Date/Type/Reason Admit Date/Time Mar 27, 2018 at 20:08 Initial Consult Date 03/29/18 Type of Consultation: Pulm/CCM Subjective Still with coffee-ground output from nasogastric tube although less than yesterday. Continues dopamine however remains tachycardic. Awake alert and oriented. No respiratory distress. Objective Vital Signs Date Temp Pulse Resp B/P (MAP) Pulse Ox O2 O2 Flow FiO2 Time Delivery Rate 03/31/18 Nasal 4.0 08:20 Cannula 03/31/18 111 37 79/38 (52) 93 08:15 03/31/18 98.1 08:00 03/29/18 100 06:06 Intake and Output 03/30/18 03/30/18 03/31/18 1515:00 23:00 07:00 IntakeIntake Total 800 ml 1075 ml 780.328 ml OutputOutput Total 290 ml 400 ml 410 ml BalanceBalance 510 ml 675 ml 370.328 ml Exam GENERAL: Elderly appearing gentleman with nasal cannula O2 nasogastric tube in place VITAL SIGNS: per chart NECK: Supple. No JVD or lymphadenopathy. CARDIAC EXAM: S1, S2. No added sounds or murmurs. CHEST: Diminished air entry bilaterally with few rales ABDOMEN: Soft, nontender. No guarding or rebound. EXTREMITIES: No cyanosis, clubbing or edema. NEUROLOGIC: Generalized weakness. Results/Medications Result Diagram: 03/31/18 0439 03/31/18 0439 Results 24 hrs Laboratory Tests Test 03/30/18 19:37 03/31/18 04:30 03/31/18 04:39 03/31/18 05:00 White Blood 13.3 H 18.8 #H Count Red Blood Count 2.69 L 3.05 L Hemoglobin 7.6 L 8.7 L Hematocrit 23.2 L 26.3 L Mean 86.2 86.2 Corpuscular Volume Mean 28.3 L 28.5 L Corpuscular Hemoglobin Mean 32.8 33.1 Corpuscular Hemoglobin Conc ent Red Cell 17.4 H 17.4 H Distribution Width Platelet Count 114 L 147 # Mean Platelet 12.5 H 12.8 H Volume Immature 1.100 H 1.200 H Granulocytes % Neutrophils % 86.3 H Segmented 57 Neutrophils % (Manual) Band 31 H Neutrophils % (Manual) Lymphocytes % 7.4 L Lymphocytes % 4 L (Manual) Monocytes % 4.6 Monocytes % 6 (Manual) Eosinophils % 0.2 Eosinophils % 2 (Manual) Basophils % 0.4 Nucleated Red 0.0 0.2 H Blood Cells % Immature 0.140 H 0.220 H Granulocytes # Neutrophils # 11.5 H Neutrophils # 8.1 H (Manual) Band 4.1 H Neutrophils # Lymphocytes 0.5 L (Manual) Lymphocytes # 1.0 Monocytes # 0.6 Monocytes # 0.7 (Manual) Eosinophils # 0.0 Basophils # 0.1 Nucleated Red 0.0 Blood Cells # Platelet DECREASED Estimate Giant Platelets 2 H Polychromasia 2+ Anisocytosis 1+ Sodium Level 155 H 158 H Potassium Level 2.7 *L 3.3 L Chloride Level 123 H 124 H Carbon Dioxide 28 28 Level Anion Gap 4 L 6 Blood Urea 119 H 112 H Nitrogen Creatinine 2.59 H 2.62 H Est Glomerular Filtrat Rate mL/min Glucose Level 88 101 Calcium Level 7.0 L 7.6 L Urine Random 34.85 Creatinine Urine Random 39 Sodium Blood Gas Blood arterial Specimen Source Arterial Blood 03/31/2018 5:00 Date Drawn :47 AM Arterial Blood 7.525 H pH (Temp corrected ) Arterial Blood 32.7 L pCO2 (Temp correct) Arterial Blood 67.7 L pO2 (Temp corrected ) Arterial Blood 26.4 H HCO3 Arterial Blood 3.5 H Base Excess Arterial Blood 94.0 L Oxygen Saturati on Ajith Test ACCEPTAB Arterial Blood Right Radial Gas Puncture Site Arterial 0.5 Blood Carboxyhe moglobin Arterial Blood 0.6 Methemoglobin Blood Gas A-a 107.8 H O2 Differential Oxyhemoglobin 93.0 Percent Blood Gas 37.0 Temperature Blood Gas 18 Actual Respiration Rat e Blood Gas NASAL CANNULA Modality FiO2 30.0 Blood Gas Notified Whom Blood Gas 03/31/2018 5:07 Notified Time :30 AM Medications Current Medications Ondansetron HCl (Zofran Inj) 4 mg Q6H PRN IV NAUSEA AND/OR VOMITING; Start 03/27/18 at 20:00 Acetaminophen (Tylenol Tab) 650 mg Q6H PRN PO PAIN LEVEL 1-3 OR FEVER; Start 03/27/18 at 20:00 Morphine Sulfate (morphine) 2 mg Q4H PRN IV PAIN LEVEL 7-10; Start 03/27/18 at 20:00 Famotidine (Pepcid Iv) 20 mg DAILY IV Last administered on 03/31/18at 08:22; Admin Dose 20 MG; Start 03/28/18 at 11:00 Cefepime HCl 50 ml @ 100 mls/hr Q12 IVPB Last administered on 03/31/18at 08:32; Admin Dose 100 MLS/HR; Start 03/28/18 at 21:00 Sodium Bicarbonate 100 meq/Dextrose 1,100 ml @ 75 mls/hr [id number] IV Last administered on 03/31/18at 08:26; Admin Dose 75 MLS/HR; Start 03/30/18 at 14:00 Collagenase (Santyl) 1 applic DAILY TOP Last administered on 03/31/18at 08:22; Admin Dose 1 APPLIC; Start 03/31/18 at 09:00 Norepinephrine 16 mg/Dextrose 500 ml @ 1.88 mls/hr TITRATE IV Last administered on 03/31/18at 09:28; Admin Dose 7.5 MLS/HR; Start 03/31/18 at 09:00 Potassium Chloride 50 ml @ 25 mls/hr Q2H IVPB ; Start 03/31/18 at 09:30; Stop 03/31/18 at 13:29 Mupirocin (Bactroban) 1 applic BID TOP ; Start 03/31/18 at 11:00 Assessment/Plan Chief Complaint/Hosp Course Additional Assessment/Plan IMP: 1. Respiratory Failure--with hypoxemic component. Tachypnea likely due to metabolic acidosis 2/2 FLORES respiratory status improved today. 2. Urosepsis 3. FLORES--likely pre-renal vs.ATN 4. Metabolic Acidosis 2/2 #3--improved 5. AMS--Dementia and uremia 6. HyperNa+ 7. Anemia, evidence of acute GI bleed with coffee-ground output from nasogastric tube RECS: 1. IVF's---change to D5 NS 75 cc /hr replace K, 2. IV Abx 3. Aspiration precautions 4. GI evaluation ? defer to PMD. 5. Change dopamine to levophed. 6. Transfuse 1 unit prbc given shock GIB. No family present for consent. Patient needs emergent transfusion given GIB, shock and critical status. 40 min cc time case d/w staff BARBIE SAEED MD, [facility] Mar 31, 2018 10:16
[2018-03-31] MEDS: POTASSIUM CHLORIDE 50 ML IVPB SCH ×2 (10:29→12:12)
[2018-03-31] MEDS: DEXTROSE 5%-0.9% NACL 1,000 ML IV SCH ×2 (10:38→23:45)
[2018-03-31] MEDS: MUPIROCIN 2% 22 GM OINT TOP SCH ×2 (12:12→20:50)
--- NOTE | 2018-03-31 13:18 | PN ---
Date/Time of Note Date/Time of Note DATE: 03/31/18 TIME: 13:18 Assessment/Plan VTE Prophylaxis Risk score (from Ns)>0 risk: 9 SCD applied (from Ns): Yes Pharmacological prophylaxis: LMWH Lines/Catheters [facility] (from [facility] Central Line Central line still needed: Yes Urinary Cath still in place: Yes Reason Cath still needed: skin wounds contaminated by urine Assessment/Plan Hospital Course 1) urinary tract infection - IV antibiotics - IV fluids 2) possible GI bleed - follow H/H - PPI 3) dementia - stable Result Diagram: 03/31/18 0439 03/31/18 0439 Results 24hrs Laboratory Tests Test 03/30/18 19:37 03/31/18 04:30 03/31/18 04:39 03/31/18 05:00 White Blood 13.3 H 18.8 #H Count Red Blood Count 2.69 L 3.05 L Hemoglobin 7.6 L 8.7 L Hematocrit 23.2 L 26.3 L Mean 86.2 86.2 Corpuscular Volume Mean 28.3 L 28.5 L Corpuscular Hemoglobin Mean 32.8 33.1 Corpuscular Hemoglobin Conc ent Red Cell 17.4 H 17.4 H Distribution Width Platelet Count 114 L 147 # Mean Platelet 12.5 H 12.8 H Volume Immature 1.100 H 1.200 H Granulocytes % Neutrophils % 86.3 H Segmented 57 62 Neutrophils % (Manual) Band 31 H 26 H Neutrophils % (Manual) Lymphocytes % 7.4 L Lymphocytes % 4 L 7 L (Manual) Monocytes % 4.6 Monocytes % 6 3 (Manual) Eosinophils % 0.2 Eosinophils % 2 (Manual) Basophils % 0.4 Nucleated Red 0.0 0.2 H Blood Cells % Immature 0.140 H 0.220 H Granulocytes # Neutrophils # 11.5 H Neutrophils # 8.1 H 12.6 H (Manual) Band 4.1 H 4.8 H Neutrophils # Lymphocytes 0.5 L 1.3 (Manual) Lymphocytes # 1.0 Monocytes # 0.6 Monocytes # 0.7 0.5 (Manual) Eosinophils # 0.0 Basophils # 0.1 Nucleated Red 0.0 Blood Cells # Platelet DECREASED NORMAL Estimate Giant Platelets 2 H 4 H Polychromasia 2+ 1+ Anisocytosis 1+ 1+ Sodium Level 155 H 158 H Potassium Level 2.7 *L 3.3 L Chloride Level 123 H 124 H Carbon Dioxide 28 28 Level Anion Gap 4 L 6 Blood Urea 119 H 112 H Nitrogen Creatinine 2.59 H 2.62 H Est Glomerular Filtrat Rate mL/min Glucose Level 88 101 Calcium Level 7.0 L 7.6 L Urine Random 34.85 Creatinine Urine Random 39 Sodium Reactive 1 H Lymphocytes % (Manual) Metamyelocytes 1 H % (manual) Reactive 0.1 H Lymphocytes # Metamyelocytes 0.1 H # Macrocytosis 1+ Blood Gas Blood arterial Specimen Source Arterial Blood 03/31/2018 5:00 Date Drawn :47 AM Arterial Blood 7.525 H pH (Temp corrected ) Arterial Blood 32.7 L pCO2 (Temp correct) Arterial Blood 67.7 L pO2 (Temp corrected ) Arterial Blood 26.4 H HCO3 Arterial Blood 3.5 H Base Excess Arterial Blood 94.0 L Oxygen Saturati on Ajith Test ACCEPTAB Arterial Blood Right Radial Gas Puncture Site Arterial 0.5 Blood Carboxyhe moglobin Arterial Blood 0.6 Methemoglobin Blood Gas A-a 107.8 H O2 Differential Oxyhemoglobin 93.0 Percent Blood Gas 37.0 Temperature Blood Gas 18 Actual Respiration Rat e Blood Gas NASAL CANNULA Modality FiO2 30.0 Blood Gas Notified Whom Blood Gas 03/31/2018 5:07 Notified Time :30 AM Subjective 24 Hr Interval Summary Free Text/Dictation Patient on oxygen nasal cannula breathing comfortably Exam/Review of Systems Vital Signs Vitals Vital Signs Date Temp Pulse Resp B/P (MAP) Pulse Ox O2 O2 Flow FiO2 Time Delivery Rate 03/31/18 104 28 117/60 99 13:15 (79) 03/31/18 Nasal 4.0 13:00 Cannula 03/31/18 98.3 12:00 03/29/18 100 06:06 Intake and Output 03/30/18 03/30/18 03/31/18 1515:00 23:00 07:00 IntakeIntake Total 800 ml 1075 ml 879.208 ml OutputOutput Total 290 ml 400 ml 430 ml BalanceBalance 510 ml 675 ml 449.208 ml Exam Constitutional: well developed Head: normocephalic, atraumatic Neck: supple Respiratory: diminished breath sounds Cardiovascular: regular rate and rhythm Gastrointestinal: soft, non-tender Extremities: normal pulses Medications Medications Current Medications Ondansetron HCl (Zofran Inj) 4 mg Q6H PRN IV NAUSEA AND/OR VOMITING; Start 03/27/18 at 20:00 Acetaminophen (Tylenol Tab) 650 mg Q6H PRN PO PAIN LEVEL 1-3 OR FEVER; Start 03/27/18 at 20:00 Morphine Sulfate (morphine) 2 mg Q4H PRN IV PAIN LEVEL 7-10; Start 03/27/18 at 20:00 Famotidine (Pepcid Iv) 20 mg DAILY IV Last administered on 03/31/18 08:22; Ad min Dose 20 MG; Start 03/28/18 at 11:00 Cefepime HCl 50 ml @ 100 mls/hr Q12 IVPB Last administered on 03/31/18 08:32; Admin Dose 100 MLS/HR; Start 03/28/18 at 21:00 Collagenase (Santyl) 1 applic DAILY TOP Last administered on 03/31/18 08:22; Admin Dose 1 APPLIC; Start 03/31/18 at 09:00 Norepinephrine 16 mg/Dextrose 500 ml @ 1.88 mls/hr TITRATE IV Last administered on 03/31/18 09:28; Admin Dose 7.5 MLS/HR; Start 03/31/18 at 09:00 Potassium Chloride 50 ml @ 25 mls/hr Q2H IVPB Last administered on 03/31/18 12:12; Admin Dose 25 MLS/HR; Start 03/31/18 at 09:30; Stop 03/31/18 at 13:29 Mupirocin (Bactroban) 1 applic BID TOP Last administered on 03/31/18 12:12; Admin Dose 1 APPLIC; Start 03/31/18 at 11:00 Dextrose/Sodium Chloride 1,000 ml @ 75 mls/hr [id number] IV Last administered on 03/31/18at 10:38; Admin Dose 75 MLS/HR; Start 03/31/18 at 10:30 DEENA BASILIO Mar 31, 2018 13:18
[2018-03-31] MEDS ORDERED: FUROSEMIDE 40 MG INJ IV ONE (14:30)
[2018-03-31] MEDS ORDERED: ALBUMIN HUMAN 25% 100 ML IV ONE (14:30)
[2018-03-31] MEDS ORDERED: SOD CHLORIDE 0.9% 500 ML IV ONE (14:30)
--- NOTE | 2018-03-31 14:30 | CONS ---
Date/Time of Note Date/Time of Note DATE: 03/31/18 TIME: 14:29 Assessment/Plan Assessment/Plan Assessment/Plan 1. Acute kidney injury on CKD due to ATN + prerenal azotemia 2. acute blood loss anemia 3. acute hyperkalemia 4. acute hypoxemic resp failure 5. Sepsis due to acute UTI 6. Severe metabolic acidosis due to FLORES 7. Hypernatremia 8. Upper GI bleeding Plan: seen in ICU, NG lavage is celaring, getting PRBC trnasfusion for low Hb, IV abx for UTI, renally dose all abx and monitor electrolytes BP has been stable- Urine studies including urine Na, Urine prot/cr ratio, urine eosinophils, CK total, Uric acid, Renal US showed No evidence of hydronephrosis or mass, Nonobstructing intr arenal calculi are seen in the mid right kidney measuring 4 mm in 7 mm. 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.8 x 6.7 x 8.3 cm IV albumin 25% 100ml IV x 1 followed by NS 500 cc boluse then lasix 40mg IV x 1 dose Thanks for consultation, I will continue to follow up Result Diagram: 03/31/18 0439 03/31/18 0439 Results 24hrs Laboratory Tests Test 03/30/18 19:37 03/31/18 04:30 03/31/18 04:39 03/31/18 05:00 White Blood 13.3 H 18.8 #H Count Red Blood Count 2.69 L 3.05 L Hemoglobin 7.6 L 8.7 L Hematocrit 23.2 L 26.3 L Mean 86.2 86.2 Corpuscular Volume Mean 28.3 L 28.5 L Corpuscular Hemoglobin Mean 32.8 33.1 Corpuscular Hemoglobin Conc ent Red Cell 17.4 H 17.4 H Distribution Width Platelet Count 114 L 147 # Mean Platelet 12.5 H 12.8 H Volume Immature 1.100 H 1.200 H Granulocytes % Neutrophils % 86.3 H Segmented 57 62 Neutrophils % (Manual) Band 31 H 26 H Neutrophils % (Manual) Lymphocytes % 7.4 L Lymphocytes % 4 L 7 L (Manual) Monocytes % 4.6 Monocytes % 6 3 (Manual) Eosinophils % 0.2 Eosinophils % 2 (Manual) Basophils % 0.4 Nucleated Red 0.0 0.2 H Blood Cells % Immature 0.140 H 0.220 H Granulocytes # Neutrophils # 11.5 H Neutrophils # 8.1 H 12.6 H (Manual) Band 4.1 H 4.8 H Neutrophils # Lymphocytes 0.5 L 1.3 (Manual) Lymphocytes # 1.0 Monocytes # 0.6 Monocytes # 0.7 0.5 (Manual) Eosinophils # 0.0 Basophils # 0.1 Nucleated Red 0.0 Blood Cells # Platelet DECREASED NORMAL Estimate Giant Platelets 2 H 4 H Polychromasia 2+ 1+ Anisocytosis 1+ 1+ Sodium Level 155 H 158 H Potassium Level 2.7 *L 3.3 L Chloride Level 123 H 124 H Carbon Dioxide 28 28 Level Anion Gap 4 L 6 Blood Urea 119 H 112 H Nitrogen Creatinine 2.59 H 2.62 H Est Glomerular Filtrat Rate mL/min Glucose Level 88 101 Calcium Level 7.0 L 7.6 L Urine Random 34.85 Creatinine Urine Random 39 Sodium Reactive 1 H Lymphocytes % (Manual) Metamyelocytes 1 H % (manual) Reactive 0.1 H Lymphocytes # Metamyelocytes 0.1 H # Macrocytosis 1+ Blood Gas Blood arterial Specimen Source Arterial Blood 03/31/2018 5:00 Date Drawn :47 AM Arterial Blood 7.525 H pH (Temp corrected ) Arterial Blood 32.7 L pCO2 (Temp correct) Arterial Blood 67.7 L pO2 (Temp corrected ) Arterial Blood 26.4 H HCO3 Arterial Blood 3.5 H Base Excess Arterial Blood 94.0 L Oxygen Saturati on Ajith Test ACCEPTAB Arterial Blood Right Radial Gas Puncture Site Arterial 0.5 Blood Carboxyhe moglobin Arterial Blood 0.6 Methemoglobin Blood Gas A-a 107.8 H O2 Differential Oxyhemoglobin 93.0 Percent Blood Gas 37.0 Temperature Blood Gas 18 Actual Respiration Rat e Blood Gas NASAL CANNULA Modality FiO2 30.0 Blood Gas Notified Whom Blood Gas 03/31/2018 5:07 Notified Time :30 AM Consultation Date/Type/Reason Admit Date/Time Mar 27, 2018 at 20:08 Date of Consultation: Mar 31, 2018 Type of Consult NEPHROLOGY Reason for Consultation Acute oliguric Acute kidney injury Requesting Provider: DEENA BASILIO Hx of Present Illness 87-year-old gentleman with history of dementia, functional quadriplegia hypertension, BPH history of right humerus fracture complicated by DVT s/p IVC filter, E. coli urinary tract infection, and multiple pressure ulcers admitted with AMS due to urosepsis with associated FLORES and hypoxemic respiratory failure. CT abdomen also notable for possible PSBO. pt had Upper Gi bleeding requred NG tube lavage, now clearing up- BUN/Cr on admission was 86/2.87 which worsened to BUN/cr 112/2.62- pt urine output also dropped to 20 cc/hr Renal has been consulted for acute oliguric FLORES. Subjective hx not possible: pt critical status, other (Confused,not able to proivde history ) Past Medical History Medical History: deep vein thrombosis, high cholesterol, hypertension Medications Current Medications Ondansetron HCl (Zofran Inj) 4 mg Q6H PRN IV NAUSEA AND/OR VOMITING; Start 03/27/18 at 20:00 Acetaminophen (Tylenol Tab) 650 mg Q6H PRN PO PAIN LEVEL 1-3 OR FEVER; Start 03/27/18 at 20:00 Morphine Sulfate (morphine) 2 mg Q4H PRN IV PAIN LEVEL 7-10; Start 03/27/18 at 20:00 Famotidine (Pepcid Iv) 20 mg DAILY IV Last administered on 03/31/18at 08:22; Admin Dose 20 MG; Start 03/28/18 at 11:00 Cefepime HCl 50 ml @ 100 mls/hr Q12 IVPB Last administered on 03/31/18 08:32; Admin Dose 100 MLS/HR; Start 03/28/18 at 21:00 Collagenase (Santyl) 1 applic DAILY TOP Last administered on 03/31/18at 08:22; Admin Dose 1 APPLIC; Start 03/31/18 at 09:00 Norepinephrine 16 mg/Dextrose 500 ml @ 1.88 mls/hr TITRATE IV Last administered on 03/31/18 09:28; Admin Dose 7.5 MLS/HR; Start 03/31/18 at 09:00 Mupirocin (Bactroban) 1 applic BID TOP Last administered on 03/31/18at 12:12; Admin Dose 1 APPLIC; Start 03/31/18 at 11:00 Dextrose/Sodium Chloride 1,000 ml @ 75 mls/hr [id number] IV Last administered on 03/31/18at 10:38; Admin Dose 75 MLS/HR; Start 03/31/18 at 10:30 Allergies: Coded Allergies: No Known Allergy (Unverified , 03/27/18) Past Surgical History Past Surgical Hx: no surgical history, other Family History Significant Family History: no pertinent family hx Social History Alcohol Use: none Smoking Status: Never smoker Drug Use: none Exam/Review of Systems Vital Signs Vitals Vital Signs Date Temp Pulse Resp B/P (MAP) Pulse Ox O2 O2 Flow FiO2 Time Delivery Rate 03/31/18 104 28 117/60 99 13:15 (79) 03/31/18 Nasal 4.0 13:00 Cannula 03/31/18 98.3 12:00 03/29/18 100 06:06 Intake and Output 03/30/18 03/30/18 03/31/18 1515:00 23:00 07:00 IntakeIntake Total 800 ml 1075 ml 879.208 ml OutputOutput Total 290 ml 400 ml 430 ml BalanceBalance 510 ml 675 ml 449.208 ml Exam GENERAL: Elderly appearing gentleman with nasal cannula O2 nasogastric tube in place NECK: Supple. No JVD or lymphadenopathy. CARDIAC EXAM: S1, S2. No added sounds or murmurs. CHEST: Diminished air entry bilaterally with few rales ABDOMEN: Soft, nontender. No guarding or rebound. EXTREMITIES: No cyanosis, clubbing or edema. NEUROLOGIC: Generalized weakness. Medications Medications Current Medications Ondansetron HCl (Zofran Inj) 4 mg Q6H PRN IV NAUSEA AND/OR VOMITING; Start 03/27/18 at 20:00 Acetaminophen (Tylenol Tab) 650 mg Q6H PRN PO PAIN LEVEL 1-3 OR FEVER; Start 03/27/18 at 20:00 Morphine Sulfate (morphine) 2 mg Q4H PRN IV PAIN LEVEL 7-10; Start 03/27/18 at 20:00 Famotidine (Pepcid Iv) 20 mg DAILY IV Last administered on 03/31/18at 08:22; Admin Dose 20 MG; Start 03/28/18 at 11:00 Cefepime HCl 50 ml @ 100 mls/hr Q12 IVPB Last administered on 03/31/18at 08:32; Admin Dose 100 MLS/HR; Start 03/28/18 at 21:00 Collagenase (Santyl) 1 applic DAILY TOP Last administered on 03/31/18at 08:22; Admin Dose 1 APPLIC; Start 03/31/18 at 09:00 Norepinephrine 16 mg/Dextrose 500 ml @ 1.88 mls/hr TITRATE IV Last administered on 03/31/18at 09:28; Admin Dose 7.5 MLS/HR; Start 03/31/18 at 09:00 Mupirocin (Bactroban) 1 applic BID TOP Last administered on 03/31/18at 12:12; Admin Dose 1 APPLIC; Start 03/31/18 at 11:00 Dextrose/Sodium Chloride 1,000 ml @ 75 mls/hr [id number] IV Last administered on 03/31/18at 10:38; Admin Dose 75 MLS/HR; Start 03/31/18 at 10:30 STEVEN BLANCO MD Mar 31, 2018 14:30
[2018-03-31] MEDS ORDERED: GENTAMICIN 60 MG in SOD CHLORIDE 0.9% 50 ML IVPB SCH (16:00)
[2018-03-31] MEDS: MEROPENEM 500MG/50 ML (PMX) 50 ML IVPB SCH (17:46)
[2018-03-31] MEDS ORDERED: PIPER-TAZO 3.375 GM IV (PMX) 100 ML IVPB SCH (18:00)
[2018-04-01] VITALS (89 sets, daily range): BP systolic 83–119; BP diastolic 37–84; PULSE 61–90; RESP 15–29
[2018-04-01] MEDS: DEXTROSE 5%-0.9% NACL 1,000 ML IV SCH (05:08)
[2018-04-01] MEDS: MEROPENEM 500MG/50 ML (PMX) 50 ML IVPB SCH ×2 (05:08→18:02)
[2018-04-01] MEDS: MUPIROCIN 2% 22 GM OINT TOP SCH ×2 (08:54→21:44)
[2018-04-01] MEDS: FAMOTIDINE 20 MG INJ IV SCH (08:54)
[2018-04-01] MEDS: COLLAGENASE 5 GM (UD JAR) TOP SCH (09:00)
--- NOTE | 2018-04-01 09:54 | CONS ---
Date/Time of Note Date/Time of Note DATE: 04/01/18 TIME: 09:49 Consult Date/Type/Reason Admit Date/Time Mar 27, 2018 at 20:08 Initial Consult Date 03/29/18 Type of Consultation: Pulm/CCM Requesting Provider: DEENA BASILIO Subjective Patient more alert this morning. Decreased coffee-ground output from nasogastric tube. Still requiring vasopressor support. Improve urine output. Objective Vital Signs Date Temp Pulse Resp B/P (MAP) Pulse Ox O2 O2 Flow FiO2 Time Delivery Rate 04/01/18 Nasal 2.0 08:00 Cannula 04/01/18 82 08:00 04/01/18 21 118/50 100 07:30 (72) 04/01/18 97.8 07:00 03/29/18 100 06:06 Intake and Output 03/31/18 03/31/18 04/01/18 1515:00 23:00 07:00 IntakeIntake Total 404.01 ml 465.00 ml 726.88 ml OutputOutput Total 85 ml 915 ml 1100 ml BalanceBalance 319.01 ml -450.00 ml -373.12 ml Exam GENERAL: Elderly appearing gentleman with nasal cannula O2 nasogastric tube in place VITAL SIGNS: per chart NECK: Supple. No JVD or lymphadenopathy. CARDIAC EXAM: S1, S2. No added sounds or murmurs. CHEST: Diminished air entry bilaterally with few rales ABDOMEN: Soft, nontender. No guarding or rebound. EXTREMITIES: No cyanosis, clubbing or edema. NEUROLOGIC: Generalized weakness. Results/Medications Result Diagram: 04/01/18 0500 04/01/18 0500 Results 24 hrs Laboratory Tests Test 03/31/18 14:50 04/01/18 05:00 04/01/18 05:04 04/01/18 05:21 Urine 0.0 Eosinophils % Urine Random 34.74 Creatinine Urine Random 38 Sodium Urine 3.13 Protein/Creatini ne Ratio Urine Total 109.0 H Protein White Blood 22.9 #H Count Red Blood Count 3.15 L Hemoglobin 9.0 L Hematocrit 27.6 L Mean Corpuscular 87.6 Volume Mean Corpuscular 28.6 L Hemoglobin Mean Corpuscular 32.6 Hemoglobin Claribel nt Red Cell 17.2 H Distribution Width Platelet Count 129 L Mean Platelet 12.9 H Volume Immature 1.900 H Granulocytes % Neutrophils % Segmented 93 H Neutrophils % (Manual) Band Neutrophils 2 % (Manual) Lymphocytes % Lymphocytes % 2 L (Manual) Monocytes % Monocytes % 3 (Manual) Eosinophils % Basophils % Nucleated Red 0.0 Blood Cells % Immature 0.430 H Granulocytes # Neutrophils # Neutrophils # 21.4 H (Manual) Band Neutrophils 0.4 # Lymphocytes 0.4 L (Manual) Lymphocytes # Monocytes # Monocytes # 0.6 (Manual) Eosinophils # Basophils # Nucleated Red Blood Cells # Toxic 1+ Granulation Platelet DECREASED Estimate Polychromasia 1+ Rouleau 1+ Sodium Level 160 H Potassium Level 3.2 L Chloride Level 123 H Carbon Dioxide 28 Level Anion Gap 9 Blood Urea 117 H Nitrogen Creatinine 3.64 #H Est Glomerular Filtrat Rate mL/min Glucose Level 119 Calcium Level 7.7 L Lab Scanned BLOOD TRANSFUSIO Report N Uric Acid 11.3 H Creatine Kinase 128 Test 04/01/18 07:00 Blood Gas Blood arterial Specimen Source Arterial Blood 04/01/2018 8:50:09 Date Drawn AM Arterial Blood 7.494 H pH (Temp corrected) Arterial Blood 35.1 pCO2 (Temp correct) Arterial Blood 82.7 pO2 (Temp corrected) Arterial Blood 26.4 H HCO3 Arterial Blood 3.2 H Base Excess Arterial Blood 95.7 Oxygen Saturatio n Ajith Test ACCEPTAB Arterial Blood Right Radial Gas Puncture Site Arterial 0.3 Blood Carboxyhem oglobin Arterial Blood 0.4 Methemoglobin Blood Gas A-a O2 68.3 H Differential Oxyhemoglobin 95.0 Percent Blood Gas 37.0 Temperature Blood Gas NASAL CANNULA Modality FiO2 27.0 Blood Gas Notified Whom Blood Gas 04/01/2018 8:56:21 Notified Time AM Medications Current Medications Ondansetron HCl (Zofran Inj) 4 mg Q6H PRN IV NAUSEA AND/OR VOMITING; Start 03/27/18 at 20:00 Acetaminophen (Tylenol Tab) 650 mg Q6H PRN PO PAIN LEVEL 1-3 OR FEVER; Start 03/27/18 at 20:00 Morphine Sulfate (morphine) 2 mg Q4H PRN IV PAIN LEVEL 7-10; Start 03/27/18 at 20:00 Famotidine (Pepcid Iv) 20 mg DAILY IV Last administered on 04/01/18at 08:54; Admin Dose 20 MG; Start 03/28/18 at 11:00 Collagenase (Santyl) 1 applic DAILY TOP Last administered on 03/31/18at 08:22; Admin Dose 1 APPLIC; Start 03/31/18 at 09:00 Norepinephrine 16 mg/Dextrose 500 ml @ 1.88 mls/hr TITRATE IV Last administered on 03/31/18 09:28; Admin Dose 7.5 MLS/HR; Start 03/31/18 at 09:00 Mupirocin (Bactroban) 1 applic BID TOP Last administered on 04/01/18 08:54; Admin Dose 1 APPLIC; Start 03/31/18 at 11:00 Dextrose/Sodium Chloride 1,000 ml @ 75 mls/hr [id number] IV Last administered on 04/01/18 05:08; Admin Dose 75 MLS/HR; Start 03/31/18 at 10:30 Meropenem/Sodium Chloride 50 ml @ 100 mls/hr Q12H IVPB Last administered on 04/01/18 05:08; Admin Dose 100 MLS/HR; Start 03/31/18 at 17:00 Assessment/Plan Chief Complaint/Hosp Course Additional Assessment/Plan IMP: 1. Respiratory Failure--with hypoxemic component. Tachypnea likely due to metabolic acidosis 2/2 FLORES respiratory status improved today. 2. Urinary tract infection with septic shock. 3. FLORES--likely pre-renal vs.ATN 4. Metabolic Acidosis 2/2 #3--improved 5. AMS--Dementia and uremia 6. HyperNa+ 7. Anemia, evidence of acute GI bleed with coffee-ground output from nasogastric tube RECS: 1. IVF's---change to D5 NS 75 cc /hr replace K, 2. IV Abx 3. Aspiration precautions 4. GI evaluation ? defer to PMD. 5. Change dopamine to Gil-Synephrine 6. Stable hemoglobin following transfusion 7. Renal recs. 40 min cc time case d/w staff Consider GI and ID consults BARBIE SAEED MD, [facility] Apr 01, 2018 09:54
[2018-04-01] MEDS ORDERED: VANCOMYCIN IV PER PHARMACY XX SCH (10:00)
[2018-04-01] MEDS ORDERED: VANCOMYCIN 1.25 GM in DEXTROSE 5% 250 ML IVPB SCH (12:00)
--- NOTE | 2018-04-01 12:38 | PN ---
Date/Time of Note Date/Time of Note DATE: 04/01/18 TIME: 12:37 Assessment/Plan VTE Prophylaxis Risk score (from Ns)>0 risk: 9 SCD applied (from Ns): Yes Pharmacological prophylaxis: LMWH Lines/Catheters IV Catheter Type (from Nrs): Central Line Central line still needed: Yes Urinary Cath still in place: Yes Reason Cath still needed: skin wounds contaminated by urine Assessment/Plan Hospital Course 1) urinary tract infection - IV antibiotics - IV fluids 2) possible GI bleed - follow H/H - PPI 3) dementia - stable Result Diagram: 04/01/18 0500 04/01/18 0500 Results 24hrs Laboratory Tests Test 03/31/18 14:50 04/01/18 05:00 04/01/18 05:04 04/01/18 05:21 Urine 0.0 Eosinophils % Urine Random 34.74 Creatinine Urine Random 38 Sodium Urine 3.13 Protein/Creatini ne Ratio Urine Total 109.0 H Protein White Blood 22.9 #H Count Red Blood Count 3.15 L Hemoglobin 9.0 L Hematocrit 27.6 L Mean Corpuscular 87.6 Volume Mean Corpuscular 28.6 L Hemoglobin Mean Corpuscular 32.6 Hemoglobin Claribel nt Red Cell 17.2 H Distribution Width Platelet Count 129 L Mean Platelet 12.9 H Volume Immature 1.900 H Granulocytes % Neutrophils % Segmented 93 H Neutrophils % (Manual) Band Neutrophils 2 % (Manual) Lymphocytes % Lymphocytes % 2 L (Manual) Monocytes % Monocytes % 3 (Manual) Eosinophils % Basophils % Nucleated Red 0.0 Blood Cells % Immature 0.430 H Granulocytes # Neutrophils # Neutrophils # 21.4 H (Manual) Band Neutrophils 0.4 # Lymphocytes 0.4 L (Manual) Lymphocytes # Monocytes # Monocytes # 0.6 (Manual) Eosinophils # Basophils # Nucleated Red Blood Cells # Toxic 1+ Granulation Platelet DECREASED Estimate Polychromasia 1+ Rouleau 1+ Sodium Level 160 H Potassium Level 3.2 L Chloride Level 123 H Carbon Dioxide 28 Level Anion Gap 9 Blood Urea 117 H Nitrogen Creatinine 3.64 #H Est Glomerular Filtrat Rate mL/min Glucose Level 119 Calcium Level 7.7 L Lab Scanned BLOOD TRANSFUSIO Report N Uric Acid 11.3 H Creatine Kinase 128 Test 04/01/18 07:00 Blood Gas Blood arterial Specimen Source Arterial Blood 04/01/2018 8:50:09 Date Drawn AM Arterial Blood 7.494 H pH (Temp corrected) Arterial Blood 35.1 pCO2 (Temp correct) Arterial Blood 82.7 pO2 (Temp corrected) Arterial Blood 26.4 H HCO3 Arterial Blood 3.2 H Base Excess Arterial Blood 95.7 Oxygen Saturatio n Ajith Test ACCEPTAB Arterial Blood Right Radial Gas Puncture Site Arterial 0.3 Blood Carboxyhem oglobin Arterial Blood 0.4 Methemoglobin Blood Gas A-a O2 68.3 H Differential Oxyhemoglobin 95.0 Percent Blood Gas 37.0 Temperature Blood Gas NASAL CANNULA Modality FiO2 27.0 Blood Gas Notified Whom Blood Gas 04/01/2018 8:56:21 Notified Time AM Subjective 24 Hr Interval Summary Free Text/Dictation Patient awake, denies any complaints Exam/Review of Systems Vital Signs Vitals Vital Signs Date Temp Pulse Resp B/P (MAP) Pulse Ox O2 O2 Flow FiO2 Time Delivery Rate 04/01/18 Nasal 2.0 08:00 Cannula 04/01/18 82 08:00 04/01/18 21 118/50 100 07:30 (72) 04/01/18 97.8 07:00 03/29/18 100 06:06 Intake and Output 03/31/18 03/31/18 04/01/18 1515:00 23:00 07:00 IntakeIntake Total 404.01 ml 465.00 ml 726.88 ml OutputOutput Total 85 ml 915 ml 1100 ml BalanceBalance 319.01 ml -450.00 ml -373.12 ml Exam Constitutional: well developed Head: normocephalic, atraumatic Neck: supple Respiratory: diminished breath sounds Cardiovascular: regular rate and rhythm Gastrointestinal: soft, non-tender Extremities: normal pulses Medications Medications Current Medications Ondansetron HCl (Zofran Inj) 4 mg Q6H PRN IV NAUSEA AND/OR VOMITING; Start 03/27/18 at 20:00 Acetaminophen (Tylenol Tab) 650 mg Q6H PRN PO PAIN LEVEL 1-3 OR FEVER; Start 03/27/18 at 20:00 Morphine Sulfate (morphine) 2 mg Q4H PRN IV PAIN LEVEL 7-10; Start 03/27/18 at 20:00 Famotidine (Pepcid Iv) 20 mg DAILY IV Last administered on 04/01/18at 08:54; Admin Dose 20 MG; Start 03/28/18 at 11:00 Collagenase (Santyl) 1 applic DAILY TOP Last administered on 03/31/18at 08:22; Admin Dose 1 APPLIC; Start 03/31/18 at 09:00 Norepinephrine 16 mg/Dextrose 500 ml @ 1.88 mls/hr TITRATE IV Last administered on 03/31/18at 09:28; Admin Dose 7.5 MLS/HR; Start 03/31/18 at 09:00 Mupirocin (Bactroban) 1 applic BID TOP Last administered on 04/01/18at 08:54; Admin Dose 1 APPLIC; Start 03/31/18 at 11:00 Dextrose/Sodium Chloride 1,000 ml @ 75 mls/hr [id number] IV Last administered on 04/01/18at 05:08; Admin Dose 75 MLS/HR; Start 03/31/18 at 10:30 Meropenem/Sodium Chloride 50 ml @ 100 mls/hr Q12H IVPB Last administered on 04/01/18at 05:08; Admin Dose 100 MLS/HR; Start 03/31/18 at 17:00 Vancomycin HCl (Vanco Iv Per Pharmacy) VANCOMYCIN PER PHARMACY PER PROTOCOL XX ; Start 04/01/18 at 10:00 Vancomycin HCl 1.25 gm/Dextrose 250 ml @ 83.333 mls/ hr ONCE IVPB ; Start 04/01/18 at 12:00; Stop 04/01/18 at 20:00 DEENA BASILIO Apr 01, 2018 12:38
--- NOTE | 2018-04-01 13:00 | CONS ---
Date/Time of Note Date/Time of Note DATE: 04/01/18 TIME: 13:00 Assessment/Plan Assessment/Plan Assessment/Plan 1. Acute kidney injury on CKD due to ATN + prerenal azotemia 2. acute blood loss anemia 3. acute hyperkalemia 4. acute hypoxemic resp failure 5. Sepsis due to acute UTI 6. Severe metabolic acidosis due to FLORES 7. Hypernatremia 8. Upper GI bleeding Plan: BUN/Cr still high, Na trended up, K low, good urine output after IV albumin +lasix- will give IVF D5W with KCl 10mEQ at 80 cc/hr today for hypernatremia and hypokalemia Renal US showed No evidence of hydronephrosis or mass, Nonobstructing intrarenal calculi are seen in the mid right kidney measuring 4 mm in 7 mm. 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.8 x 6.7 x 8.3 cm no acute indication for HD at this time, will continue to monitor renal function will follow up Result Diagram: 04/01/18 0500 04/01/18 0500 Results 24hrs Laboratory Tests Test 03/31/18 14:50 04/01/18 05:00 04/01/18 05:04 04/01/18 05:21 Urine 0.0 Eosinophils % Urine Random 34.74 Creatinine Urine Random 38 Sodium Urine 3.13 Protein/Creatini ne Ratio Urine Total 109.0 H Protein White Blood 22.9 #H Count Red Blood Count 3.15 L Hemoglobin 9.0 L Hematocrit 27.6 L Mean Corpuscular 87.6 Volume Mean Corpuscular 28.6 L Hemoglobin Mean Corpuscular 32.6 Hemoglobin Claribel nt Red Cell 17.2 H Distribution Width Platelet Count 129 L Mean Platelet 12.9 H Volume Immature 1.900 H Granulocytes % Neutrophils % Segmented 93 H Neutrophils % (Manual) Band Neutrophils 2 % (Manual) Lymphocytes % Lymphocytes % 2 L (Manual) Monocytes % Monocytes % 3 (Manual) Eosinophils % Basophils % Nucleated Red 0.0 Blood Cells % Immature 0.430 H Granulocytes # Neutrophils # Neutrophils # 21.4 H (Manual) Band Neutrophils 0.4 # Lymphocytes 0.4 L (Manual) Lymphocytes # Monocytes # Monocytes # 0.6 (Manual) Eosinophils # Basophils # Nucleated Red Blood Cells # Toxic 1+ Granulation Platelet DECREASED Estimate Polychromasia 1+ Rouleau 1+ Sodium Level 160 H Potassium Level 3.2 L Chloride Level 123 H Carbon Dioxide 28 Level Anion Gap 9 Blood Urea 117 H Nitrogen Creatinine 3.64 #H Est Glomerular Filtrat Rate mL/min Glucose Level 119 Calcium Level 7.7 L Lab Scanned BLOOD TRANSFUSIO Report N Uric Acid 11.3 H Creatine Kinase 128 Test 04/01/18 07:00 Blood Gas Blood arterial Specimen Source Arterial Blood 04/01/2018 8:50:09 Date Drawn AM Arterial Blood 7.494 H pH (Temp corrected) Arterial Blood 35.1 pCO2 (Temp correct) Arterial Blood 82.7 pO2 (Temp corrected) Arterial Blood 26.4 H HCO3 Arterial Blood 3.2 H Base Excess Arterial Blood 95.7 Oxygen Saturatio n Ajith Test ACCEPTAB Arterial Blood Right Radial Gas Puncture Site Arterial 0.3 Blood Carboxyhem oglobin Arterial Blood 0.4 Methemoglobin Blood Gas A-a O2 68.3 H Differential Oxyhemoglobin 95.0 Percent Blood Gas 37.0 Temperature Blood Gas NASAL CANNULA Modality FiO2 27.0 Blood Gas Notified Whom Blood Gas 04/01/2018 8:56:21 Notified Time AM Consultation Date/Type/Reason Admit Date/Time Mar 27, 2018 at 20:08 Initial Consult Date 03/31/18 Type of Consult NEPHROLOGY Requesting Provider: DEENA BASILIO 24 HR Interval Summary Free Text/Dictation responded well to IV albumin + lasix, today Na trended up, K low, BUN/Cr still high Exam/Review of Systems Vital Signs Vitals Vital Signs Date Temp Pulse Resp B/P (MAP) Pulse Ox O2 O2 Flow FiO2 Time Delivery Rate 04/01/18 Nasal 2.0 08:00 Cannula 04/01/18 82 08:00 04/01/18 21 118/50 100 07:30 (72) 04/01/18 97.8 07:00 03/29/18 100 06:06 Intake and Output 03/31/18 03/31/18 04/01/18 1515:00 23:00 07:00 IntakeIntake Total 404.01 ml 465.00 ml 726.88 ml OutputOutput Total 85 ml 915 ml 1100 ml BalanceBalance 319.01 ml -450.00 ml -373.12 ml Exam GENERAL: Elderly appearing gentleman with nasal cannula O2 nasogastric tube in place NECK: Supple. No JVD or lymphadenopathy. CARDIAC EXAM: S1, S2. No added sounds or murmurs. CHEST: Diminished air entry bilaterally with few rales ABDOMEN: Soft, nontender. No guarding or rebound. EXTREMITIES: No cyanosis, clubbing or edema. NEUROLOGIC: Generalized weakness. Medications Medications Current Medications Ondansetron HCl (Zofran Inj) 4 mg Q6H PRN IV NAUSEA AND/OR VOMITING; Start 03/27/18 at 20:00 Acetaminophen (Tylenol Tab) 650 mg Q6H PRN PO PAIN LEVEL 1-3 OR FEVER; Start 03/27/18 at 20:00 Morphine Sulfate (morphine) 2 mg Q4H PRN IV PAIN LEVEL 7-10; Start 03/27/18 at 20:00 Famotidine (Pepcid Iv) 20 mg DAILY IV Last administered on 04/01/18at 08:54; Admin Dose 20 MG; Start 03/28/18 at 11:00 Collagenase (Santyl) 1 applic DAILY TOP Last administered on 03/31/18at 08:22; Admin Dose 1 APPLIC; Start 03/31/18 at 09:00 Norepinephrine 16 mg/Dextrose 500 ml @ 1.88 mls/hr TITRATE IV Last administere d on 03/31/18at 09:28; Admin Dose 7.5 MLS/HR; Start 03/31/18 at 09:00 Mupirocin (Bactroban) 1 applic BID TOP Last administered on 04/01/18 08:54; Admin Dose 1 APPLIC; Start 03/31/18 at 11:00 Dextrose/Sodium Chloride 1,000 ml @ 75 mls/hr [id number] IV Last administered on 04/01/18at 05:08; Admin Dose 75 MLS/HR; Start 03/31/18 at 10:30 Meropenem/Sodium Chloride 50 ml @ 100 mls/hr Q12H IVPB Last administered on 04/01/18 05:08; Admin Dose 100 MLS/HR; Start 03/31/18 at 17:00 Vancomycin HCl (Vanco Iv Per Pharmacy) VANCOMYCIN PER PHARMACY PER PROTOCOL XX ; Start 04/01/18 at 10:00 Vancomycin HCl 1.25 gm/Dextrose 250 ml @ 83.333 mls/ hr ONCE IVPB ; Start 04/01/18 at 12:00; Stop 04/01/18 at 20:00 STEVEN BLANCO MD Apr 01, 2018 13:00
[2018-04-01] MEDS: POTASSIUM CHLORIDE 10 MEQ in DEXTROSE 5% 1,000 ML IV SCH (16:01)
[2018-04-02] VITALS (90 sets, daily range): BP systolic 76–132; BP diastolic 36–66; PULSE 64–89; RESP 14–30
[2018-04-02] MEDS: POTASSIUM CHLORIDE 10 MEQ in DEXTROSE 5% 1,000 ML IV SCH ×2 (03:04→04:01)
[2018-04-02] MEDS: MEROPENEM 500MG/50 ML (PMX) 50 ML IVPB SCH ×2 (04:01→18:01)
[2018-04-02] MEDS: FAMOTIDINE 20 MG INJ IV SCH (08:05)
[2018-04-02] MEDS: MUPIROCIN 2% 22 GM OINT TOP SCH ×2 (08:05→20:53)
[2018-04-02] MEDS: COLLAGENASE 5 GM (UD JAR) TOP SCH (08:05)
[2018-04-02] MEDS: POTASSIUM CHLORIDE 50 ML IVPB SCH ×2 (09:06→11:04)
--- NOTE | 2018-04-02 09:51 | CONS ---
Date/Time of Note Date/Time of Note DATE: 04/02/18 TIME: 09:49 Consult Date/Type/Reason Admit Date/Time Mar 27, 2018 at 20:08 Initial Consult Date 03/29/18 Type of Consultation: Pulm/CCM Requesting Provider: DEENA BASILIO Subjective More alert this morning. Opens eyes and nods to questions. Still requiring low-dose vasopressor support. No further coffee-ground output from nasogastric tube. Objective Vital Signs Date Temp Pulse Resp B/P (MAP) Pulse Ox O2 O2 Flow FiO2 Time Delivery Rate 04/02/18 73 21 97/46 (63) 99 09:15 04/02/18 Room Air 09:00 04/02/18 97.0 08:00 04/02/18 1.0 04:00 Intake and Output 04/01/18 04/01/18 04/02/18 1515:00 23:00 07:00 IntakeIntake Total 366.83 ml 919.05 ml 695.03 ml OutputOutput Total 1000 ml 620 ml 380 ml BalanceBalance -633.17 ml 299.05 ml 315.03 ml Exam GENERAL: Elderly appearing gentleman with nasal cannula O2 nasogastric tube in place VITAL SIGNS: per chart NECK: Supple. No JVD or lymphadenopathy. CARDIAC EXAM: S1, S2. No added sounds or murmurs. CHEST: Diminished air entry bilaterally with few rales ABDOMEN: Soft, nontender. No guarding or rebound. EXTREMITIES: No cyanosis, clubbing or edema. NEUROLOGIC: Generalized weakness. Results/Medications Result Diagram: 04/02/18 0345 04/02/18 0345 Results 24 hrs Laboratory Tests Test 04/02/18 03:45 White Blood Count 19.7 H Red Blood Count 2.93 L Hemoglobin 8.3 L Hematocrit 26.3 L Mean Corpuscular Volume 89.8 Mean Corpuscular Hemoglobin 28.3 L Mean Corpuscular Hemoglobin Concent 31.6 L Red Cell Distribution Width 17.5 H Platelet Count 127 L Mean Platelet Volume 13.1 H Immature Granulocytes % 2.900 H Neutrophils % 83.1 H Segmented Neutrophils % (Manual) 88 H Band Neutrophils % (Manual) 7 H Lymphocytes % 8.3 L Lymphocytes % (Manual) 1 L Reactive Lymphocytes % (Manual) 1 H Monocytes % 2.8 Monocytes % (Manual) 2 Eosinophils % 2.5 Eosinophils % (Manual) 1 Basophils % 0.4 Nucleated Red Blood Cells % 0.0 Immature Granulocytes # 0.570 H Neutrophils # 16.3 H Neutrophils # (Manual) 17.6 H Band Neutrophils # 1.3 H Lymphocytes (Manual) 0.1 L Lymphocytes # 1.6 Reactive Lymphocytes # 0.1 H Monocytes # 0.6 Monocytes # (Manual) 0.3 Eosinophils # 0.5 Basophils # 0.1 Nucleated Red Blood Cells # 0.0 Platelet Estimate NORMAL Giant Platelets 9 H Platelet Morphology Comment @See below Polychromasia 1+ Anisocytosis 1+ Macrocytosis 1+ Sodium Level 165 *H Potassium Level 2.9 *L Chloride Level 129 H Carbon Dioxide Level 30 Anion Gap 6 Blood Urea Nitrogen 90 H Creatinine 2.36 #H Est Glomerular Filtrat Rate mL/min Glucose Level 108 Calcium Level 7.7 L Phosphorus Level 3.4 Magnesium Level 2.4 Medications Current Medications Ondansetron HCl (Zofran Inj) 4 mg Q6H PRN IV NAUSEA AND/OR VOMITING; Start 03/27/18 at 20:00 Acetaminophen (Tylenol Tab) 650 mg Q6H PRN PO PAIN LEVEL 1-3 OR FEVER; Start 03/27/18 at 20:00 Morphine Sulfate (morphine) 2 mg Q4H PRN IV PAIN LEVEL 7-10; Start 03/27/18 at 20:00 Famotidine (Pepcid Iv) 20 mg DAILY IV Last administered on 04/02/18 08:05; Admin Dose 20 MG; Start 03/28/18 at 11:00 Collagenase (Santyl) 1 applic DAILY TOP Last administered on 04/02/18 08:05; Admin Dose 1 APPLIC; Start 03/31/18 at 09:00 Norepinephrine 16 mg/Dextrose 500 ml @ 1.88 mls/hr TITRATE IV Last administered on 03/31/18at 09:28; Admin Dose 7.5 MLS/HR; Start 03/31/18 at 09:00 Mupirocin (Bactroban) 1 applic BID TOP Last administered on 04/02/18 08:05; Admin Dose 1 APPLIC; Start 03/31/18 at 11:00 Meropenem/Sodium Chloride 50 ml @ 100 mls/hr Q12H IVPB Last administered on 04/02/18 04:01; Admin Dose 100 MLS/HR; Start 03/31/18 at 17:00 Vancomycin HCl (Vanco Iv Per Pharmacy) VANCOMYCIN PER PHARMACY PER PROTOCOL XX ; Start 04/01/18 at 10:00 Potassium Chloride 50 ml @ 25 mls/hr Q2H IVPB Last administered on 04/02/18at 09:06; Admin Dose 25 MLS/HR; Start 04/02/18 at 09:00; Stop 04/02/18 at 12:59 Dextrose/Sodium Chloride 1,000 ml @ 50 mls/hr Q20H IV ; Start 04/02/18 at 10:00 Assessment/Plan Chief Complaint/Hosp Course Additional Assessment/Plan IMP: 1. Respiratory Failure--with hypoxemic component. Tachypnea likely due to metabolic acidosis 2/2 FLORES respiratory status improved today. 2. Urinary tract infection with septic shock. 3. FLORES--likely pre-renal vs.ATN 4. Metabolic Acidosis 2/2 #3--improved 5. AMS--Dementia and uremia 6. HyperNa+ 7. Anemia, evidence of acute GI bleed with coffee-ground output from nasogastric tube RECS: 1. IVF's--D5 half NS at 50 cc an hour 2. IV Abx 3. Aspiration precautions, increase free water flushes 150 cc every 6. IV potassium protocol. 4. GI evaluation ? defer to PMD. 5. Decrease vasopressors as tolerated 6. Transfuse 1 unit PRBC 7. Renal recs. 40 min cc time case d/w staff Consider GI and ID consults BAR[facility] SAEED MD[facility] Apr 02, 2018 09:51
[2018-04-02] MEDS ORDERED: DEXTROSE 5%-0.45% NACL 1,000 ML IV SCH (10:00)
--- NOTE | 2018-04-02 12:19 | CONS ---
Date/Time of Note Date/Time of Note DATE: 04/02/18 TIME: 12:18 Assessment/Plan Assessment/Plan Assessment/Plan 1. Acute kidney injury on CKD due to ATN + prerenal azotemia 2. acute blood loss anemia 3. acute hyperkalemia 4. acute hypoxemic resp failure 5. Sepsis due to acute UTI 6. Severe metabolic acidosis due to FLORES 7. Hypernatremia 8. Upper GI bleeding Plan: BUN/Cr still high, Na trended up to 165, K low, K low, good urine output - no Na containing IVF due to hypernaremia, will change Current IVF to d5W at 50 cc/hr Renal US showed No evidence of hydronephrosis or mass, Nonobstructing intrarenal calculi are seen in the mid right kidney measuring 4 mm in 7 mm. 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.8 x 6.7 x 8.3 cm no acute indication for HD at this time, will continue to monitor renal function GI has been consulted for upper GI bleeding will follow up Result Diagram: 04/02/18 0345 04/02/18 0345 Results 24hrs Laboratory Tests Test 04/02/18 03:45 White Blood Count 19.7 H Red Blood Count 2.93 L Hemoglobin 8.3 L Hematocrit 26.3 L Mean Corpuscular Volume 89.8 Mean Corpuscular Hemoglobin 28.3 L Mean Corpuscular Hemoglobin Concent 31.6 L Red Cell Distribution Width 17.5 H Platelet Count 127 L Mean Platelet Volume 13.1 H Immature Granulocytes % 2.900 H Neutrophils % 83.1 H Segmented Neutrophils % (Manual) 88 H Band Neutrophils % (Manual) 7 H Lymphocytes % 8.3 L Lymphocytes % (Manual) 1 L Reactive Lymphocytes % (Manual) 1 H Monocytes % 2.8 Monocytes % (Manual) 2 Eosinophils % 2.5 Eosinophils % (Manual) 1 Basophils % 0.4 Nucleated Red Blood Cells % 0.0 Immature Granulocytes # 0.570 H Neutrophils # 16.3 H Neutrophils # (Manual) 17.6 H Band Neutrophils # 1.3 H Lymphocytes (Manual) 0.1 L Lymphocytes # 1.6 Reactive Lymphocytes # 0.1 H Monocytes # 0.6 Monocytes # (Manual) 0.3 Eosinophils # 0.5 Basophils # 0.1 Nucleated Red Blood Cells # 0.0 Platelet Estimate NORMAL Giant Platelets 9 H Platelet Morphology Comment @See below Polychromasia 1+ Anisocytosis 1+ Macrocytosis 1+ Sodium Level 165 *H Potassium Level 2.9 *L Chloride Level 129 H Carbon Dioxide Level 30 Anion Gap 6 Blood Urea Nitrogen 90 H Creatinine 2.36 #H Est Glomerular Filtrat Rate mL/min Glucose Level 108 Calcium Level 7.7 L Phosphorus Level 3.4 Magnesium Level 2.4 Consultation Date/Type/Reason Admit Date/Time Mar 27, 2018 at 20:08 Initial Consult Date 03/31/18 Type of Consult NEPHROLOGY Requesting Provider: DEENA BASILIO Exam/Review of Systems Vital Signs Vitals Vital Signs Date Temp Pulse Resp B/P (MAP) Pulse Ox O2 O2 Flow FiO2 Time Delivery Rate 04/02/18 81 20 110/48 100 12:15 (68) 04/02/18 97.5 Room Air 12:00 04/02/18 1.0 04:00 Intake and Output 04/01/18 04/01/18 04/02/18 1515:00 23:00 07:00 IntakeIntake Total 366.83 ml 919.05 ml 695.03 ml OutputOutput Total 1000 ml 620 ml 380 ml BalanceBalance -633.17 ml 299.05 ml 315.03 ml Exam GENERAL: more awake, alert today NECK: Supple. No JVD or lymphadenopathy. CARDIAC EXAM: S1, S2. No added sounds or murmurs. CHEST: Diminished air entry bilaterally with few rales ABDOMEN: Soft, nontender. No guarding or rebound. EXTREMITIES: No cyanosis, clubbing or edema. NEUROLOGIC: Generalized weakness. Medications Medications Current Medications Ondansetron HCl (Zofran Inj) 4 mg Q6H PRN IV NAUSEA AND/OR VOMITING; Start 03/27/18 at 20:00 Acetaminophen (Tylenol Tab) 650 mg Q6H PRN PO PAIN LEVEL 1-3 OR FEVER; Start 03/27/18 at 20:00 Morphine Sulfate (morphine) 2 mg Q4H PRN IV PAIN LEVEL 7-10; Start 03/27/18 at 20:00 Famotidine (Pepcid Iv) 20 mg DAILY IV Last administered on 04/02/18at 08:05; Admin Dose 20 MG; Start 03/28/18 at 11:00 Collagenase (Santyl) 1 applic DAILY TOP Last administered on 04/02/18at 08:05; Admin Dose 1 APPLIC; Start 03/31/18 at 09:00 Norepinephrine 16 mg/Dextrose 500 ml @ 1.88 mls/hr TITRATE IV Last administered on 03/31/18at 09:28; Admin Dose 7.5 MLS/HR; Start 03/31/18 at 09:00 Mupirocin (Bactroban) 1 applic BID TOP Last administered on 04/02/18at 08:05; Admin Dose 1 APPLIC; Start 03/31/18 at 11:00 Meropenem/Sodium Chloride 50 ml @ 100 mls/hr Q12H IVPB Last administered on 04/02/18at 04:01; Admin Dose 100 MLS/HR; Start 03/31/18 at 17:00 Vancomycin HCl (Vanco Iv Per Pharmacy) VANCOMYCIN PER PHARMACY PER PROTOCOL XX ; Start 04/01/18 at 10:00 Potassium Chloride 50 ml @ 25 mls/hr Q2H IVPB Last administered on 04/02/18at 11:04; Admin Dose 25 MLS/HR; Start 04/02/18 at 09:00; Stop 04/02/18 at 12:59 Dextrose/Sodium Chloride 1,000 ml @ 50 mls/hr Q20H IV Last administered on 04/02/18at 10:32; Admin Dose 50 MLS/HR; Start 04/02/18 at 10:00 Miscellaneous Information (*Rx Drug Level Order Reminder*) RANDOM VANCOMYCIN LEVEL ... ONCE ONCE XX ; Start 04/03/18 at 05:00; Stop 04/03/18 at 05:01 STEVEN BLANCO MD Apr 02, 2018 12:18
[2018-04-02] MEDS: DEXTROSE 5% 1,000 ML IV SCH (12:24)
--- NOTE | 2018-04-02 14:25 | PN ---
Date/Time of Note Date/Time of Note DATE: 04/02/18 TIME: 14:14 Assessment/Plan VTE Prophylaxis Risk score (from [facility] [place])>0 risk: 10 SCD applied (from [facility]): Yes Pharmacological prophylaxis: NA/contraindicated Pharm contraindication: bleeding Lines/Catheters IV C[facility]ter [facility]from [facility] Central Line Central line still needed: Yes Urinary Cath still in place: Yes Reason Cath still needed: urinary retention Assessment/Plan Hospital Course Patient is awake alert, undergoing blood transfusion for anemia, potassium replaced, the patient is currently on a low-dose of levo fed for blood pressure support. Started on NG tube feeding. Assessment/Plan -Anemia secondary to possible GI bleed. Dr. Gomes is asked to see patient in GI consultation. Transfuse as needed, monitor hemoglobin and hematocrit. -Septic shock secondary to urinary tract infection, continue antibiotics. Dr. Gumzan is asked to see patient in infection disease consultation. -Hypoxemic respiratory failure, resolving. Dr. Nam is following in pulmonology consultation. -Acute kidney injury, resolving. Dr. Senior following in nephrology consultation. -Hypernatremia -Dementia -Multiple pressure ulcers -Protein calorie malnutrition Further recommendations based on clinical course. Plan of care discussed with Dr. Kiser. Result Diagram: 04/02/18 0345 04/02/18 0345 Results 24hrs Laboratory Tests Test 04/02/18 03:45 White Blood Count 19.7 H Red Blood Count 2.93 L Hemoglobin 8.3 L Hematocrit 26.3 L Mean Corpuscular Volume 89.8 Mean Corpuscular Hemoglobin 28.3 L Mean Corpuscular Hemoglobin Concent 31.6 L Red Cell Distribution Width 17.5 H Platelet Count 127 L Mean Platelet Volume 13.1 H Immature Granulocytes % 2.900 H Neutrophils % 83.1 H Segmented Neutrophils % (Manual) 88 H Band Neutrophils % (Manual) 7 H Lymphocytes % 8.3 L Lymphocytes % (Manual) 1 L Reactive Lymphocytes % (Manual) 1 H Monocytes % 2.8 Monocytes % (Manual) 2 Eosinophils % 2.5 Eosinophils % (Manual) 1 Basophils % 0.4 Nucleated Red Blood Cells % 0.0 Immature Granulocytes # 0.570 H Neutrophils # 16.3 H Neutrophils # (Manual) 17.6 H Band Neutrophils # 1.3 H Lymphocytes (Manual) 0.1 L Lymphocytes # 1.6 Reactive Lymphocytes # 0.1 H Monocytes # 0.6 Monocytes # (Manual) 0.3 Eosinophils # 0.5 Basophils # 0.1 Nucleated Red Blood Cells # 0.0 Platelet Estimate NORMAL Giant Platelets 9 H Platelet Morphology Comment @See below Polychromasia 1+ Anisocytosis 1+ Macrocytosis 1+ Sodium Level 165 *H Potassium Level 2.9 *L Chloride Level 129 H Carbon Dioxide Level 30 Anion Gap 6 Blood Urea Nitrogen 90 H Creatinine 2.36 #H Est Glomerular Filtrat Rate mL/min Glucose Level 108 Calcium Level 7.7 L Phosphorus Level 3.4 Magnesium Level 2.4 Exam/Review of Systems Vital Signs Vitals Vital Signs Date Temp Pulse Resp B/P (MAP) Pulse Ox O2 O2 Flow FiO2 Time Delivery Rate 04/02/18 81 20 110/48 100 12:15 (68) 04/02/18 97.5 Room Air 12:00 04/02/18 1.0 04:00 Intake and Output 04/01/18 04/01/18 04/02/18 1515:00 23:00 07:00 IntakeIntake Total 366.83 ml 919.05 ml 695.03 ml OutputOutput Total 1000 ml 620 ml 380 ml BalanceBalance -633.17 ml 299.05 ml 315.03 ml Exam Constitutional: alert Neck: supple Cardiovascular: regular rate and rhythm Gastrointestinal: soft, non-tender Genitourinary - Male: other (Honeycutt catheter) Skin: nl turgor Additional Comments Right chest triple lumen catheter Medications Medications Current Medications Ondansetron HCl (Zofran Inj) 4 mg Q6H PRN IV NAUSEA AND/OR VOMITING; Start 03/27/18 at 20:00 Acetaminophen (Tylenol Tab) 650 mg Q6H PRN PO PAIN LEVEL 1-3 OR FEVER; Start 03/27/18 at 20:00 Morphine Sulfate (morphine) 2 mg Q4H PRN IV PAIN LEVEL 7-10; Start 03/27/18 at 20:00 Famotidine (Pepcid Iv) 20 mg DAILY IV Last administered on 04/02/18at 08:05; Admin Dose 20 MG; Start 03/28/18 at 11:00 Collagenase (Santyl) 1 applic DAILY TOP Last administered on 04/02/18at 08:05; Admin Dose 1 APPLIC; Start 03/31/18 at 09:00 Norepinephrine 16 mg/Dextrose 500 ml @ 1.88 mls/hr TITRATE IV Last administered on 03/31/18at 09:28; Admin Dose 7.5 MLS/HR; Start 03/31/18 at 09:00 Mupirocin (Bactroban) 1 applic BID TOP Last administered on 04/02/18at 08:05; Admin Dose 1 APPLIC; Start 03/31/18 at 11:00 Meropenem/Sodium Chloride 50 ml @ 100 mls/hr Q12H IVPB Last administered on 04/02/18at 04:01; Admin Dose 100 MLS/HR; Start 03/31/18 at 17:00 Vancomycin HCl (Vanco Iv Per Pharmacy) VANCOMYCIN PER PHARMACY PER PROTOCOL XX ; Start 04/01/18 at 10:00 Miscellaneous Information (*Rx Drug Level Order Reminder*) RANDOM VANCOMYCIN LEVEL ... ONCE ONCE XX ; Start 04/03/18 at 05:00; Stop 04/03/18 at 05:01 Dextrose 1,000 ml @ 50 mls/hr Q20H IV Last administered on 04/02/18at 12:24; Admin Dose 50 MLS/HR; Start 04/02/18 at 12:30 JUDY CORNEJO Apr 02, 2018 14:25
--- NOTE | 2018-04-02 16:44 | CONS ---
Date/Time of Note Date/Time of Note DATE: 04/02/18 TIME: 16:43 Assessment/Plan Assessment/Plan Hospital Course Impression: 1. coffee ground emesis 2. acute post hemorrhagic anemia 3. melena 4. upper GI bleed 5. hypokalemia Recommendations: 1. I am repleting potassium 40 mEq now 2. change H2 drew to PPI bid 3. transfuse PRN hgb less than 7 4. plan for EGD tomorrow Result Diagram: 04/02/18 0345 04/02/18 0345 Results 24hrs Laboratory Tests Test 04/02/18 03:45 White Blood Count 19.7 H Red Blood Count 2.93 L Hemoglobin 8.3 L Hematocrit 26.3 L Mean Corpuscular Volume 89.8 Mean Corpuscular Hemoglobin 28.3 L Mean Corpuscular Hemoglobin Concent 31.6 L Red Cell Distribution Width 17.5 H Platelet Count 127 L Mean Platelet Volume 13.1 H Immature Granulocytes % 2.900 H Neutrophils % 83.1 H Segmented Neutrophils % (Manual) 88 H Band Neutrophils % (Manual) 7 H Lymphocytes % 8.3 L Lymphocytes % (Manual) 1 L Reactive Lymphocytes % (Manual) 1 H Monocytes % 2.8 Monocytes % (Manual) 2 Eosinophils % 2.5 Eosinophils % (Manual) 1 Basophils % 0.4 Nucleated Red Blood Cells % 0.0 Immature Granulocytes # 0.570 H Neutrophils # 16.3 H Neutrophils # (Manual) 17.6 H Band Neutrophils # 1.3 H Lymphocytes (Manual) 0.1 L Lymphocytes # 1.6 Reactive Lymphocytes # 0.1 H Monocytes # 0.6 Monocytes # (Manual) 0.3 Eosinophils # 0.5 Basophils # 0.1 Nucleated Red Blood Cells # 0.0 Platelet Estimate NORMAL Giant Platelets 9 H Platelet Morphology Comment @See below Polychromasia 1+ Anisocytosis 1+ Macrocytosis 1+ Sodium Level 165 *H Potassium Level 2.9 *L Chloride Level 129 H Carbon Dioxide Level 30 Anion Gap 6 Blood Urea Nitrogen 90 H Creatinine 2.36 #H Est Glomerular Filtrat Rate mL/min Glucose Level 108 Calcium Level 7.7 L Phosphorus Level 3.4 Magnesium Level 2.4 Consultation Date/Type/Reason Admit Date/Time Mar 27, 2018 at 20:08 Date of Consultation: Apr 02, 2018 Type of Consult Gastroenterology Reason for Consultation melena, acute post hemorrhagic anemia Hx of Present Illness Pankaj Christianson is an 88-year-old unfortunate male who was admitted with coffee- ground emesis. He is nonverbal. During this admission, he is found to have melena and transfusion requiring anemia. Due to another pRBC blood transfusion, GI consulted to assess the etiology of coffee-ground emesis, melena, and transfusion requiring anemia. unable to obtain due to patient non-verbal status Past Medical History Medical History: deep vein thrombosis, high cholesterol, hypertension Medications Current Medications Ondansetron HCl (Zofran Inj) 4 mg Q6H PRN IV NAUSEA AND/OR VOMITING; Start 03/27/18 at 20:00 Acetaminophen (Tylenol Tab) 650 mg Q6H PRN PO PAIN LEVEL 1-3 OR FEVER; Start 03/27/18 at 20:00 Morphine Sulfate (morphine) 2 mg Q4H PRN IV PAIN LEVEL 7-10; Start 03/27/18 at 20:00 Famotidine (Pepcid Iv) 20 mg DAILY IV Last administered on 04/02/18at 08:05; Admin Dose 20 MG; Start 03/28/18 at 11:00 Collagenase (Santyl) 1 applic DAILY TOP Last administered on 04/02/18at 08:05; Admin Dose 1 APPLIC; Start 03/31/18 at 09:00 Norepinephrine 16 mg/Dextrose 500 ml @ 1.88 mls/hr TITRATE IV Last administered on 03/31/18at 09:28; Admin Dose 7.5 MLS/HR; Start 03/31/18 at 09:00 Mupirocin (Bactroban) 1 applic BID TOP Last administered on 04/02/18at 08:05; Admin Dose 1 APPLIC; Start 03/31/18 at 11:00 Meropenem/Sodium Chloride 50 ml @ 100 mls/hr Q12H IVPB Last administered on 04/02/18at 04:01; Admin Dose 100 MLS/HR; Start 03/31/18 at 17:00 Vancomycin HCl (Vanco Iv Per Pharmacy) VANCOMYCIN PER PHARMACY PER PROTOCOL XX ; Start 04/01/18 at 10:00 Miscellaneous Information (*Rx Drug Level Order Reminder*) RANDOM VANCOMYCIN LEVEL ... ONCE ONCE XX ; Start 04/03/18 at 05:00; Stop 04/03/18 at 05:01 Dextrose 1,000 ml @ 50 mls/hr Q20H IV Last administered on 04/02/18at 12:24; Admin Dose 50 MLS/HR; Start 04/02/18 at 12:30 Allergies: Coded Allergies: No Known Allergy (Unverified , 03/27/18) Past Surgical History Past Surgical Hx: no surgical history, other Family History Significant Family History: no pertinent family hx Social History Alcohol Use: none Smoking Status: Never smoker Drug Use: none Exam/Review of Systems Vital Signs Vitals Vital Signs Date Temp Pulse Resp B/P (MAP) Pulse Ox O2 O2 Flow FiO2 Time Delivery Rate 04/02/18 71 16:00 04/02/18 111/52 99 15:15 (71) 04/02/18 Room Air 15:00 04/02/18 97.5 12:00 04/02/18 1.0 04:00 Intake and Output 04/01/18 04/01/18 04/02/18 1515:00 23:00 07:00 IntakeIntake Total 366.83 ml 919.05 ml 695.03 ml OutputOutput Total 1000 ml 620 ml 380 ml BalanceBalance -633.17 ml 299.05 ml 315.03 ml Exam Constitutional: non-verbal Psych: confusion Head: normocephalic, atraumatic Eyes: nl conjunctiva, EOMI, nl lids, nl sclera ENMT: nl external ears & nose, nl lips & teeth, nl nasal mucosa & septum, mucosa pink and moist Neck: supple, non-tender Respiratory: clear to auscultation, normal air movement Cardiovascular: regular rate and rhythm, nl pulses Gastrointestinal: soft, nl liver, spleen, non-tender Musculoskeletal: nl extremities to inspection, nl gait and stance Neurological: confused Medications Medications Current Medications Ondansetron HCl (Zofran Inj) 4 mg Q6H PRN IV NAUSEA AND/OR VOMITING; Start 03/27/18 at 20:00 Acetaminophen (Tylenol Tab) 650 mg Q6H PRN PO PAIN LEVEL 1-3 OR FEVER; Start 03/27/18 at 20:00 Morphine Sulfate (morphine) 2 mg Q4H PRN IV PAIN LEVEL 7-10; Start 03/27/18 at 20:00 Famotidine (Pepcid Iv) 20 mg DAILY IV Last administered on 04/02/18at 08:05; Admin Dose 20 MG; Start 03/28/18 at 11:00 Collagenase (Santyl) 1 applic DAILY TOP Last administered on 04/02/18 08:05; Admin Dose 1 APPLIC; Start 03/31/18 at 09:00 Norepinephrine 16 mg/Dextrose 500 ml @ 1.88 mls/hr TITRATE IV Last administered on 03/31/18at 09:28; Admin Dose 7.5 MLS/HR; Start 03/31/18 at 09:00 Mupirocin (Bactroban) 1 applic BID TOP Last administered on 04/02/18at 08:05; Admin Dose 1 APPLIC; Start 03/31/18 at 11:00 Meropenem/Sodium Chloride 50 ml @ 100 mls/hr Q12H IVPB Last administered on 04/02/18 04:01; Admin Dose 100 MLS/HR; Start 03/31/18 at 17:00 Vancomycin HCl (Vanco Iv Per Pharmacy) VANCOMYCIN PER PHARMACY PER PROTOCOL XX ; Start 04/01/18 at 10:00 Miscellaneous Information (*Rx Drug Level Order Reminder*) RANDOM VANCOMYCIN L EVEL ... ONCE ONCE XX ; Start 04/03/18 at 05:00; Stop 04/03/18 at 05:01 Dextrose 1,000 ml @ 50 mls/hr Q20H IV Last administered on 04/02/18at 12:24; Admin Dose 50 MLS/HR; Start 04/02/18 at 12:30 TAMIKO JOHNSON MD Apr 02, 2018 16:43
[2018-04-02] MEDS: PANTOPRAZOLE 40 MG INJ IV SCH (17:12)
[2018-04-02] MEDS ORDERED: PANTOPRAZOLE (EC) 40 MG TAB PO SCH (18:00)
--- NOTE | 2018-04-02 18:29 | CONS ---
DATE OF ADMISSION: 03/27/2018 DATE OF CONSULTATION: 04/02/2018 TYPE OF CONSULTATION: Infectious disease. REASON FOR CONSULTATION: Antibiotic management. HISTORY OF PRESENT ILLNESS: Pankaj Christianson is an 88-year-old unfortunate male who was brought in by maría zaldivar from a [facility] facility with coffee-ground emesis and is being seen now for antibioti c management. The patient was brought in with coffee-ground emesis. He had no documented fevers. N o diarrhea or chest pain. He is nonverbal. His past problems include: 1. Hypertension. 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 3. Chronic pressure ulcers. 4. Protein calorie malnutrition. 5. Functional quadriplegia. 6. Dementia. 7. Benign prostatic hypertrophy. 8. DVT. On admission, his white count was 31,000, H and H of 11.9 and 37.8, platelet count 312,000. BUN and creatinine is 86/2.87, glucose of 118, random. The patient was started on cefepime. A chest x-ray w as done which showed mild cardiomegaly, mild patchy basilar atelectasis. A CT scan of the abdomen an d pelvis showed no evidence of urolithiasis, obstructive uropathy or diverticulitis, nonvisualization of the appendix. He had cholelithiasis, nonobstructing right renal calculi, right renal cyst, diffu se moderate distention, small bowel loops with air-fluid levels, question ileus versus distal small-b owel obstruction, consider small bowel follow-through, mild bibasilar atelectasis, vascular calcifica tions, IVC filter, senescent degenerative changes of the spine. A renal ultrasound was done which sh owed no evidence of hydronephrosis or mass, obstructing intrarenal calculi are seen in the mid right kidney measuring 4 mm x 7 mm, prostate is somewhat distended and prostate is enlarged Chest x-ray to day shows NG tube, central line, mild interval increase in patchy bilateral lower lobe infiltrates, h ypoinflated lungs, no consolidation, no pneumothorax. Microbiology: His urine from 03/27/2018 grew E. coli ESBL, resistant to cefepime, sensitive to Zosyn and sensitive to meropenem. The patient is c urrently on vancomycin and meropenem. He is also on norepinephrine to titrate his blood pressure. H is white count today is 19.7, H and H of 8.3 and 26.3, platelet count 127. BUN and creatinine is 90/ 2.36. PAST MEDICAL HISTORY: As outlined. FAMILY HISTORY: Noncontributory. SOCIAL HISTORY: Does not smoke, drink or abuse drugs. ALLERGIES: NONE TO PENICILLIN, SULFA OR FOODS. MEDICATIONS: Per chart. REVIEW OF SYSTEMS: Noncontributory. PHYSICAL EXAMINATION: GENERAL: The patient is elderly, chronically debilitated male who is afebrile. He is nonverbal. He has an NG tube. He has a central line which looks like a PICC line. He has a Honeycutt catheter. SKIN: Warm and dry without icterus or ecchymoses. HEENT: Within normal limits. NECK: Supple. LYMPH NODES: None palpable. CHEST: Decreased breath sounds at the bases. HEART: Without murmur or gallop, tachycardic. ABDOMEN: Soft, nontender without organosplenomegaly or masses. EXTREMITIES: Without cyanosis, clubbing or edema. RECTAL AND GENITAL: Deferred. NEUROLOGIC: No focal neurological abnormalities. ANCILLARY LABORATORY DATA: Recent white count is 19.7 down from 22.9, H and H of 8.3 and 26.3, plate let count 127,000 with 88 polys, 7 bands. The patient is currently afebrile. IMPRESSION AND PLAN: He appears to be a candidate for hospice. I will continue him on his current t herapy, to which I concur with vancomycin and meropenem. I will dictate my findings to the [facility] and to the aforementioned physicians. Dictated By: SHARI GARZA MD, JD/AMAIRANI Conf#: [id number] DID#: [id number] CC: DEENA BASILIO MD; LESLYE CROWDER MD;*End*
[2018-04-02] MEDS ORDERED: POTASSIUM CHLORIDE 20 MEQ POWDER FOR ORAL SOLN NGT ONE ×2 (18:30→21:30)
[2018-04-03] VITALS (72 sets, daily range): BP systolic 81–118; BP diastolic 37–91; PULSE 61–93; RESP 16–25
[2018-04-03] MEDS: PANTOPRAZOLE 40 MG INJ IV SCH ×2 (05:01→17:18)
[2018-04-03] MEDS: MEROPENEM 500MG/50 ML (PMX) 50 ML IVPB SCH ×2 (05:01→17:19)
[2018-04-03] MEDS ORDERED: PROPOFOL 20 ML ONE (07:51)
--- NOTE | 2018-04-03 08:09 | PREAC ---
Date/Time of Note Date/Time of Note DATE: 04/03/18 TIME: 08:02 Anesthesia Eval and Record Evaluation Time Pre-Procedure Interview DATE: 04/03/18 TIME: 08:02 Age 88 Sex male NPO: 8 hrs Preoperative diagnosis Upper GI bleeding Planned procedure EGD Past Medical History Past Medical History: Includes Pulm: Other (Acute respiratory failure) Neuro: Other (Quadriplegia) Psych: Other (Dementia) Infection(s): Other (Severe sepsis) Surgery & Anesthesia Issues No known issue Meds Anticoagulation: No Beta Mike within 24 hr: No Reason Beta Mike not given: Pt. not on B-Mike Reported Medications Triamcinolone Acetonide* (Kenalog*) 0.1%-15GM Cr, 1 APPLIC TOP BID, #1 TUB 03/27/18 Collagenase* (Santyl*) 30 Gm Oint..gm., 1 APPLIC TOP .SOILED PRN for SOILED, #1 TUB 03/27/18 Hydrocodone/Acetaminophen ([place] 5-325 Tablet) 1 Each Tablet, 1 EACH PO Q6H PRN for MILD PAIN LEVEL 1-3, TAB 03/27/18 Hydrocodone/Acetaminophen ([place] 5-325 Tablet) 1 Each Tablet, 1 EACH PO DAILY PRN for WOUND CARE, TAB 03/27/18 Memantine* (Namenda* XR) 28 Mg Cap.spr.24, 28 MG PO DAILY, #30 TAB START TAKING-04/01/18 03/27/18 Memantine* (Namenda* XR) 21 Mg Cap.spr.24, 21 MG PO DAILY, #30 TAB FOR 7 DAYS,STOP TAKING 04/01/18 03/27/18 Enoxaparin Sodium* (Enoxaparin Sodium*) 30 Mg/0.3 Ml Syringe, 30 MG SC DAILY, SYR 03/27/18 Tamsulosin Hcl* (Tamsulosin Hcl*) 0.4 Mg Cap.er.24h, 0.4 MG PO HS, CAP 02/18/18 Protein Supplement (Promod) 946 Ml Liquid, 30 ML PO TID 02/18/18 Ondansetron Hcl* (Zofran*) 4 Mg Tab, 4 MG PO Q6H PRN for NAUSEA AND OR VOMITING, TAB 02/18/18 Multivitamin with Minerals (Multivitamins with Minerals) 1 Each Tablet, 1 EACH PO DAILY, TAB 02/18/18 Lactobacillus Acidophilus* (Lactinex*) 1 Tab Chew, 1 TAB PO BID, TAB 02/18/18 Famotidine* (Famotidine*) 20 Mg Tablet, 20 MG PO DAILY, #30 TAB 02/18/18 Docusate Sodium* (Docusate Sodium*) 100 Mg Capsule, 100 MG PO BID, #60 CAP 02/18/18 Bisacodyl* (Bisacodyl*) 10 Mg Supp, 10 MG IN Q24H for CONSTIPATION, SUPP 02/18/18 Ascorbic Acid (Vitamin C) 500 Mg Tab, 500 MG PO DAILY, TAB 02/18/18 Discontinued Reported Medications Polyethylene Glycol* (Miralax*) 17 Gm Powd.pack, 17 GM PO NEEDED, #30 PACKET 02/18/18 Ertapenem Sodium (Invanz) 1 Gm Vial.port, 1 GM IV DAILY FOR 7 DAYS. START DATE 02/13/18, END DATE 02/20/18. 02/18/18 Acetaminophen* (Acetaminophen* Susp) 325 Mg/10.15 Ml Solution, 20.3 ML PO Q4H PRN for MILD PAIN(1-3) OR TEMP>38C, ML 02/18/18 Current Medications Ondansetron HCl (Zofran Inj) 4 mg Q6H PRN IV NAUSEA AND/OR VOMITING; Start 03/27/18 at 20:00 Acetaminophen (Tylenol Tab) 650 mg Q6H PRN PO PAIN LEVEL 1-3 OR FEVER; Start 03/27/18 at 20:00 Morphine Sulfate (morphine) 2 mg Q4H PRN IV PAIN LEVEL 7-10; Start 03/27/18 at 20:00 Collagenase (Santyl) 1 applic DAILY TOP Last administered on 04/02/18at 08:05; Admin Dose 1 APPLIC; Start 03/31/18 at 09:00 Norepinephrine 16 mg/Dextrose 500 ml @ 1.88 mls/hr TITRATE IV Last administered on 04/02/18 23:46; Admin Dose 3.75 MLS/HR; Start 03/31/18 at 09:00 Mupirocin (Bactroban) 1 applic BID TOP Last administered on 04/02/18 20:53; Ad min Dose 1 APPLIC; Start 03/31/18 at 11:00 Meropenem/Sodium Chloride 50 ml @ 100 mls/hr Q12H IVPB Last administered on 04/03/18at 05:01; Admin Dose 100 MLS/HR; Start 03/31/18 at 17:00 Vancomycin HCl (Vanco Iv Per Pharmacy) VANCOMYCIN PER PHARMACY PER PROTOCOL XX ; Start 04/01/18 at 10:00 Dextrose 1,000 ml @ 50 mls/hr Q20H IV Last administered on 04/02/18at 12:24; Admin Dose 50 MLS/HR; Start 04/02/18 at 12:30 Pantoprazole (Protonix Iv) 40 mg BID@18 IV Last administered on 04/03/18at 05:01; Admin Dose 40 MG; Start 04/02/18 at 18:00 Meds reviewed: Yes Allergies Coded Allergies: No Known Allergy (Unverified , 03/27/18) Allergies Reviewed: Yes Labs/Studies Labs Reviewed: Reviewed by anesthesiologist Result Diagram: 04/03/18 0430 04/03/18 0430 Laboratory Tests 04/03/18 04:30 test: N/A Pre-procedure Exam Last vitals Vital Signs Date Temp Pulse Resp B/P (MAP) Pulse Ox O2 O2 Flow FiO2 Time Delivery Rate 04/03/18 74 21 113/54 98 06:45 (73) 04/03/18 Room Air 06:30 04/03/18 21 05:50 04/03/18 97.7 04:00 04/02/18 1.0 04:00 Airway: Adequate mouth opening Mallampati: Mallampati I Teeth: Normal Lung: Abnormal (Coarse) Heart: Normal ASA Physical Status ASA physical status: 4 Emergency: None Planned Anesthetic General/MAC: MAC Planned Pain Management Parenteral pain med Pre-operative Attestations Prior to commencing anesthesia and surgery, the patient was re-evaluated, there was verification of: *The patient's identity *The results of appropriate recent lab work and preoperative vital signs *The above evaluation not changing prior to induction *Anesthetic plan, risk benefits, alternative and complications discussed with patient/family; questions answered; patient/family understands, accepts and wishes to proceed. ODESSA STRAUSS MD Apr 03, 2018 08:09
--- NOTE | 2018-04-03 09:06 | OPR ---
Date/Time of Note Date/Time of Note DATE: 04/03/18 TIME: 08:59 Operative Report Procedure Date: Apr 03, 2018 Preoperative Diagnosis melena, GI bleed Postoperative Diagnosis bleeding gastric ulcers s/p hemostasis with placement of hemoclip hiatal hernia Operation/Procedure Performed EGD with biopsies and hemoclip placement Surgeon see signature line Logging Contractor none Anesthesia Type: MAC Anesthesiologist: ODESSA STRAUSS MD Estimated Blood Loss: minimal Transfusion none Specimen antrum and body biopsies Grafts/Implants none Complications none Pt Condition Post Procedure: stable Disposition: other (bedside case in ICU) Procedure Description after informed consent and timeout, pt sedated by Dr. Strauss. After adequate sedation, I inserted an adult EGD scope from the mouth and advanced to 2nd portion of duodenum. Retroflexion performed in gastric body to evaluate the fundus and cardia. I then withdraw the EGD scope while examining the esophagus circumferentially TAMIKO JOHNSON MD Apr 03, 2018 09:06
--- NOTE | 2018-04-03 09:12 | CONS ---
Date/Time of Note Date/Time of Note DATE: 04/03/18 TIME: 09:10 Assessment/Plan Assessment/Plan Assessment/Plan Assessment and recommendations; 1. Patient admitted with sepsis due to E. coli UTI, currently on appropriate antimicrobial regimen. 2. Acute renal insufficiency with improving renal function. 3. Interval resolution of metabolic acidosis. 4. Anemia and thrombocytopenia. 5. Upper GI bleed. 6. Encephalopathy with history of underlying dementia exacerbated by uremia and sepsis. Continue current supportive care. Patient scheduled to undergo EGD shortly. Result Diagram: 04/03/18 0430 04/03/18 0430 Results 24hrs Laboratory Tests Test 04/02/18 17:02 04/03/18 04:30 04/03/18 05:05 Prothrombin Time 16.8 H Prothrombin Time Ratio 1.3 INR International 1.35 Normalized Ratio Sodium Level 160 H 163 *H Potassium Level 3.2 L 3.9 Chloride Level 133 H 130 H Carbon Dioxide Level 27 30 Anion Gap 0 L 3 L Blood Urea Nitrogen 75 H 61 H Creatinine 1.63 H 1.56 H Est Glomerular Filtrat Rate mL/min Glucose Level 111 107 Calcium Level 7.6 L 7.8 L White Blood Count 19.8 H Red Blood Count 3.46 L Hemoglobin 10.1 #L Hematocrit 31.1 L Mean Corpuscular Volume 89.9 Mean Corpuscular Hemoglobin 29.2 Mean Corpuscular 32.5 Hemoglobin Concent Red Cell Distribution Width 17.2 H Platelet Count 133 L Mean Platelet Volume 13.4 H Immature Granulocytes % 2.000 H Neutrophils % Segmented Neutrophils % (Manual) 85 H Band Neutrophils % (Manual) 9 H Lymphocytes % Reactive Lymphocytes % (Manual) 1 H Monocytes % Monocytes % (Manual) 3 Eosinophils % Eosinophils % (Manual) 2 Basophils % Nucleated Red Blood Cells % 0.0 Immature Granulocytes # 0.400 H Neutrophils # Neutrophils # (Manual) 17.2 H Band Neutrophils # 1.7 H Lymphocytes # Reactive Lymphocytes # 0.1 H Monocytes # Monocytes # (Manual) 0.5 Eosinophils # Basophils # Nucleated Red Blood Cells # Platelet Estimate NORMAL Giant Platelets 1 H Polychromasia 1+ Poikilocytosis 1+ Anisocytosis 1+ Microcytosis 1+ Target Cells 1+ Random Vancomycin Level 7.8 Lab Scanned Report BLOOD TRANSFUSION Consultation Date/Type/Reason Admit Date/Time Mar 27, 2018 at 20:08 Initial Consult Date 04/02/18 Type of Consult Pulmonary/critical care Reason for Consultation Patient's condition is tenuous at best. On low-dose Levophed. No overt GI bleed noted. General exam; elderly male, on Ventimask. Somewhat responsive. Currently in no distress. H EENT exam; supple neck, no JVD. No lymphadenopathy. Midline trachea. No thyromegaly. Chest exam; diminished but clear breath sounds. S1-S2 audible, no murmurs. Reg ular rhythm. Abdomen exam; soft, no organomegaly. Bowel sounds audible. Extremity exam; no peripheral edema. 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 Requesting Provider: DEENA BASILIO Exam/Review of Systems Vital Signs Vitals Vital Signs Date Temp Pulse Resp B/P (MAP) Pulse Ox O2 O2 Flow FiO2 Time Delivery Rate 04/03/18 74 21 114/49 98 Room Air 07:30 (70) 04/03/18 21 05:50 04/03/18 97.7 04:00 04/02/18 1.0 04:00 Intake and Output 04/02/18 04/02/18 04/03/18 1515:00 23:00 07:00 IntakeIntake Total 939.72 ml 843.76 ml 435.65 ml OutputOutput Total 1095 ml 420 ml 435 ml BalanceBalance -155.28 ml 423.76 ml 0.65 ml Medications Medications Current Medications Ondansetron HCl (Zofran Inj) 4 mg Q6H PRN IV NAUSEA AND/OR VOMITING; Start 03/27/18 at 20:00 Acetaminophen (Tylenol Tab) 650 mg Q6H PRN PO PAIN LEVEL 1-3 OR FEVER; Start 03/27/18 at 20:00 Morphine Sulfate (morphine) 2 mg Q4H PRN IV PAIN LEVEL 7-10; Start 03/27/18 at 20:00 Collagenase (Santyl) 1 applic DAILY TOP Last administered on 04/02/18at 08:05; Admin Dose 1 APPLIC; Start 03/31/18 at 09:00 Norepinephrine 16 mg/Dextrose 500 ml @ 1.88 mls/hr TITRATE IV Last administered on 04/02/18at 23:46; Admin Dose 3.75 MLS/HR; Start 03/31/18 at 09:00 Mupirocin (Bactroban) 1 applic BID TOP Last administered on 04/02/18at 20:53; Admin Dose 1 APPLIC; Start 03/31/18 at 11:00 Meropenem/Sodium Chloride 50 ml @ 100 mls/hr Q12H IVPB Last administered on 04/03/18at 05:01; Admin Dose 100 MLS/HR; Start 03/31/18 at 17:00 Vancomycin HCl (Vanco Iv Per Pharmacy) VANCOMYCIN PER PHARMACY PER PROTOCOL XX ; Start 04/01/18 at 10:00 Dextrose 1,000 ml @ 50 mls/hr Q20H IV Last administered on 04/02/18at 12:24; Admin Dose 50 MLS/HR; Start 04/02/18 at 12:30 Pantoprazole (Protonix Iv) 40 mg BID@06,18 IV Last administered on 04/03/18at 05:01; Admin Dose 40 MG; Start 04/02/18 at 18:00 LESLYE CROWDER Apr 03, 2018 09:11
[2018-04-03] MEDS: MUPIROCIN 2% 22 GM OINT TOP SCH ×2 (09:47→21:40)
[2018-04-03] MEDS: COLLAGENASE 5 GM (UD JAR) TOP SCH (09:47)
[2018-04-03] MEDS: DEXTROSE 5% 1,000 ML IV SCH (09:47)
--- NOTE | 2018-04-03 11:39 | PN ---
Date/Time of Note Date/Time of Note DATE: 04/03/18 TIME: 11:32 Assessment/Plan VTE Prophylaxis Risk score (from Ns)>0 risk: 10 [place] [facility] [place] Pharmacological prophylaxis: NA/contraindicated Pharm contraindication: bleeding Lines/Catheters IV Catheter Type (from [facility]): Central Line Central line still needed: Yes Urinary Cath still in place: Yes Reason Cath still needed: urinary retention Assessment/Plan Hospital Course Patient is s/p EGD today, pt is off pressors for couple of hours, continue ICU care. Assessment/Plan -Anemia secondary to possible GI bleed. Dr. Gomes is asked to see patient in GI consultation. Transfuse as needed, monitor hemoglobin and hematocrit. -Bleeding gastric ulcers s/p hemostasis with placement of hemoclip during EGD by Dr Guallpa. -Septic shock secondary to urinary tract infection, continue antibiotics. Dr. Guzman is following in infection disease consultation. -Hypoxemic respiratory failure, resolving. Dr. Nam is following in pulmonology consultation. -Acute kidney injury, resolving. Dr. Senior following in nephrology consultation. -Hypernatremia -Dementia -Multiple pressure ulcers -Protein calorie malnutrition Further recommendations based on clinical course. Plan of care discussed with Dr. Kiser. Result Diagram: 04/03/18 0430 04/03/18 0430 Results 24hrs Laboratory Tests Test 04/02/18 17:02 04/03/18 04:30 04/03/18 05:05 04/03/18 11:26 Prothrombin Time 16.8 H Prothrombin Time 1.3 Ratio INR 1.35 International Normalized Ratio Sodium Level 160 H 163 *H Potassium Level 3.2 L 3.9 Chloride Level 133 H 130 H Carbon Dioxide 27 30 Level Anion Gap 0 L 3 L Blood Urea 75 H 61 H Nitrogen Creatinine 1.63 H 1.56 H Est Glomerular Filtrat Rate mL/min Glucose Level 111 107 Calcium Level 7.6 L 7.8 L White Blood 19.8 H Count Red Blood Count 3.46 L Hemoglobin 10.1 #L Hematocrit 31.1 L Mean Corpuscular 89.9 Volume Mean Corpuscular 29.2 Hemoglobin Mean Corpuscular 32.5 Hemoglobin Claribel nt Red Cell 17.2 H Distribution Width Platelet Count 133 L Mean Platelet 13.4 H Volume Immature 2.000 H Granulocytes % Neutrophils % Segmented 85 H Neutrophils % (Manual) Band Neutrophils 9 H % (Manual) Lymphocytes % Reactive 1 H Lymphocytes % (Manual) Monocytes % Monocytes % 3 (Manual) Eosinophils % Eosinophils % 2 (Manual) Basophils % Nucleated Red 0.0 Blood Cells % Immature 0.400 H Granulocytes # Neutrophils # Neutrophils # 17.2 H (Manual) Band Neutrophils 1.7 H # Lymphocytes # Reactive 0.1 H Lymphocytes # Monocytes # Monocytes # 0.5 (Manual) Eosinophils # Basophils # Nucleated Red Blood Cells # Platelet NORMAL Estimate Giant Platelets 1 H Polychromasia 1+ Poikilocytosis 1+ Anisocytosis 1+ Microcytosis 1+ Target Cells 1+ Random 7.8 Vancomycin Level Lab Scanned BLOOD TRANSFUSIO REFERENCE LAB Report N Exam/Review of Systems Vital Signs Vitals Vital Signs Date Temp Pulse Resp B/P (MAP) Pulse Ox O2 O2 Flow FiO2 Time Delivery Rate 04/03/18 76 08:00 04/03/18 21 114/49 98 Room Air 07:30 (70) 04/03/18 21 05:50 04/03/18 97.7 04:00 04/02/18 1.0 04:00 Intake and Output 04/02/18 04/02/18 04/03/18 1515:00 23:00 07:00 IntakeIntake Total 939.72 ml 843.76 ml 489.40 ml OutputOutput Total 1095 ml 420 ml 485 ml BalanceBalance -155.28 ml 423.76 ml 4.40 ml Exam Constitutional: alert Neck: supple Cardiovascular: regular rate and rhythm Gastrointestinal: soft, non-tender Genitourinary - Male: other (Honeycutt catheter) Skin: nl turgor Additional Comments Right chest triple lumen catheter Medications Medications Current Medications Ondansetron HCl (Zofran Inj) 4 mg Q6H PRN IV NAUSEA AND/OR VOMITING; Start 03/27/18 at 20:00 Acetaminophen (Tylenol Tab) 650 mg Q6H PRN PO PAIN LEVEL 1-3 OR FEVER; Start 03/27/18 at 20:00 Morphine Sulfate (morphine) 2 mg Q4H PRN IV PAIN LEVEL 7-10; Start 03/27/18 at 20:00 Collagenase (Santyl) 1 applic DAILY TOP Last administered on 04/03/18at 09:47; Admin Dose 1 APPLIC; Start 03/31/18 at 09:00 Norepinephrine 16 mg/Dextrose 500 ml @ 1.88 mls/hr TITRATE IV Last administered on 04/02/18 23:46; Admin Dose 3.75 MLS/HR; Start 03/31/18 at 09:00 Mupirocin (Bactroban) 1 applic BID TOP Last administered on 04/03/18 09:47; Admin Dose 1 APPLIC; Start 03/31/18 at 11:00 Meropenem/Sodium Chloride 50 ml @ 100 mls/hr Q12H IVPB Last administered on 04/03/18 05:01; Admin Dose 100 MLS/HR; Start 03/31/18 at 17:00 Vancomycin HCl (Vanco Iv Per Pharmacy) VANCOMYCIN PER PHARMACY PER PROTOCOL XX ; Start 04/01/18 at 10:00 Dextrose 1,000 ml @ 50 mls/hr Q20H IV Last administered on 04/03/18 09:47; Admin Dose 50 MLS/HR; Start 04/02/18 at 12:30 Pantoprazole (Protonix Iv) 40 mg BID@06,18 IV Last administered on 04/03/18 05:01; Admin Dose 40 MG; Start 04/02/18 at 18:00 JUDY CORNEJO Apr 03, 2018 11:39
[2018-04-03] MEDS ORDERED: VANCOMYCIN 1 GM 250 ML IVPB SCH (12:30)
--- NOTE | 2018-04-03 13:16 | PAC ---
Date/Time of Note Date/Time of Note DATE: 04/03/18 TIME: 13:16 Post-Anesthesia Notes Post-Anesthesia Note Last documented vital signs Vital Signs Date Temp Pulse Resp B/P (MAP) Pulse Ox O2 O2 Flow FiO2 Time Delivery Rate 04/03/18 72 12:00 04/03/18 21 114/49 98 Room Air 07:30 (70) 04/03/18 21 05:50 04/03/18 97.7 04:00 04/02/18 1.0 04:00 Activity: WNL Respiratory function: WNL Cardiovascular function: WNL Mental status: Baseline Pain reasonably controlled: Yes Hydration appropriate: Yes Nausea/Vomiting absent: Yes ODESSA STRAUSS MD Apr 03, 2018 13:16
[2018-04-03] MEDS ORDERED: VANCOMYCIN 1 GM in DEXTROSE 5% 250 ML IVPB SCH ×4 (13:30)
--- NOTE | 2018-04-03 13:42 | CONS ---
Date/Time of Note Date/Time of Note DATE: 04/03/18 TIME: 13:42 Assessment/Plan Assessment/Plan Assessment/Plan 1. Acute kidney injury on CKD due to ATN + prerenal azotemia 2. acute blood loss anemia 3. acute hyperkalemia 4. acute hypoxemic resp failure 5. Sepsis due to acute UTI 6. Severe metabolic acidosis due to FLORES 7. Hypernatremia 8. Upper GI bleeding Plan: BUN/Cr 61/1.59, Na 163, K 3.9, IVF to d5W at 50 cc/hr Renal US showed No evidence of hydronephrosis or mass, Nonobstructing int rarenal calculi are seen in the mid right kidney measuring 4 mm in 7 mm. 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.8 x 6.7 x 8.3 cm no acute indication for HD at this time, will continue to monitor renal function GI has been consulted for upper GI bleeding will follow up Result Diagram: 04/03/18 0430 04/03/18 0430 Results 24hrs Laboratory Tests Test 04/02/18 17:02 04/03/18 04:30 04/03/18 05:05 04/03/18 11:26 Prothrombin Time 16.8 H Prothrombin Time 1.3 Ratio INR 1.35 International Normalized Ratio Sodium Level 160 H 163 *H Potassium Level 3.2 L 3.9 Chloride Level 133 H 130 H Carbon Dioxide 27 30 Level Anion Gap 0 L 3 L Blood Urea 75 H 61 H Nitrogen Creatinine 1.63 H 1.56 H Est Glomerular Filtrat Rate mL/min Glucose Level 111 107 Calcium Level 7.6 L 7.8 L White Blood 19.8 H Count Red Blood Count 3.46 L Hemoglobin 10.1 #L Hematocrit 31.1 L Mean Corpuscular 89.9 Volume Mean Corpuscular 29.2 Hemoglobin Mean Corpuscular 32.5 Hemoglobin Claribel nt Red Cell 17.2 H Distribution Width Platelet Count 133 L Mean Platelet 13.4 H Volume Immature 2.000 H Granulocytes % Neutrophils % Segmented 85 H Neutrophils % (Manual) Band Neutrophils 9 H % (Manual) Lymphocytes % Reactive 1 H Lymphocytes % (Manual) Monocytes % Monocytes % 3 (Manual) Eosinophils % Eosinophils % 2 (Manual) Basophils % Nucleated Red 0.0 Blood Cells % Immature 0.400 H Granulocytes # Neutrophils # Neutrophils # 17.2 H (Manual) Band Neutrophils 1.7 H # Lymphocytes # Reactive 0.1 H Lymphocytes # Monocytes # Monocytes # 0.5 (Manual) Eosinophils # Basophils # Nucleated Red Blood Cells # Platelet NORMAL Estimate Giant Platelets 1 H Polychromasia 1+ Poikilocytosis 1+ Anisocytosis 1+ Microcytosis 1+ Target Cells 1+ Random 7.8 Vancomycin Level Lab Scanned BLOOD TRANSFUSIO REFERENCE LAB Report N Consultation Date/Type/Reason Admit Date/Time Mar 27, 2018 at 20:08 Initial Consult Date 03/31/18 Type of Consult NEPHROLOGY Requesting Provider: DEENA BASILIO Exam/Review of Systems Vital Signs Vitals Vital Signs Date Temp Pulse Resp B/P (MAP) Pulse Ox O2 O2 Flow FiO2 Time Delivery Rate 04/03/18 72 12:00 04/03/18 21 114/49 98 Room Air 07:30 (70) 04/03/18 21 05:50 04/03/18 97.7 04:00 04/02/18 1.0 04:00 Intake and Output 04/02/18 04/02/18 04/03/18 1515:00 23:00 07:00 IntakeIntake Total 939.72 ml 843.76 ml 489.40 ml OutputOutput Total 1095 ml 420 ml 485 ml BalanceBalance -155.28 ml 423.76 ml 4.40 ml Exam GENERAL: more awake, alert today NECK: Supple. No JVD or lymphadenopathy. CARDIAC EXAM: S1, S2. No added sounds or murmurs. CHEST: Diminished air entry bilaterally with few rales ABDOMEN: Soft, nontender. No guarding or rebound. EXTREMITIES: No cyanosis, clubbing or edema. NEUROLOGIC: Generalized weakness. Medications Medications Current Medications Ondansetron HCl (Zofran Inj) 4 mg Q6H PRN IV NAUSEA AND/OR VOMITING; Start 03/27/18 at 20:00 Acetaminophen (Tylenol Tab) 650 mg Q6H PRN PO PAIN LEVEL 1-3 OR FEVER; Start 03/27/18 at 20:00 Morphine Sulfate (morphine) 2 mg Q4H PRN IV PAIN LEVEL 7-10; Start 03/27/18 at 20:00 Collagenase (Santyl) 1 applic DAILY TOP Last administered on 04/03/18at 09:47; Admin Dose 1 APPLIC; Start 03/31/18 at 09:00 Norepinephrine 16 mg/Dextrose 500 ml @ 1.88 mls/hr TITRATE IV Last administered on 04/02/18at 23:46; Admin Dose 3.75 MLS/HR; Start 03/31/18 at 09:00 Mupirocin (Bactroban) 1 applic BID TOP Last administered on 04/03/18 09:47; Admin Dose 1 APPLIC; Start 03/31/18 at 11:00 Meropenem/Sodium Chloride 50 ml @ 100 mls/hr Q12H IVPB Last administered on 04/03/18at 05:01; Admin Dose 100 MLS/HR; Start 03/31/18 at 17:00 Vancomycin HCl (Vanco Iv Per Pharmacy) VANCOMYCIN PER PHARMACY PER PROTOCOL XX ; Start 04/01/18 at 10:00 Dextrose 1,000 ml @ 50 mls/hr Q20H IV Last administered on 04/03/18 09:47; Admin Dose 50 MLS/HR; Start 04/02/18 at 12:30 Pantoprazole (Protonix Iv) 40 mg BID@06,18 IV Last administered on 04/03/18at 05:01; Admin Dose 40 MG; Start 04/02/18 at 18:00 Vancomycin HCl 1 gm/Dextrose 250 ml @ 125 mls/hr Q48H IVPB ; Start 04/03/18 at 13:30 STEVEN BLANCO MD Apr 03, 2018 13:42
--- NOTE | 2018-04-03 16:59 | CONS ---
Date/Time of Note Date/Time of Note DATE: 04/03/18 TIME: 16:59 Assessment/Plan Assessment/Plan Hospital Course Patient is very weak lying comfortably in bed no fevers overnight temperature 98 pulse 66 respirations 20 blood pressure 118/60 saturation 95 on room air WBC 19.8 H&H 10.1 and 31.1 platelets 133 neutrophils 85 pounds 9 BUN 61 creatinine 1.56 Microbiology: Urine culture grew E. coli ESBL Chest x-ray revealed bilateral pleural effusions and questionable airspace disease Antimicrobials: Vancomycin meropenem Physical examination: Well-developed chronically ill-appearing wasted elderly man who is in no distress. Head atraumatic normocephalic sclera nonicteric. Neck is supple chest rise symmetrical breath sounds diminished bases. Heart: S1-S2 abdomen distended tender on palpation extremities without cyanosis Assessment: 1. Sepsis, status post shock 2. GI bleeding status post EGD with Hemoclip placement 3. E. coli ESBL UTI 4. MRSA nares colonization 5. Dysphagia 6. Dementia 7. HyperNa Plan: Patient is clinically stable continue present care and antibiotics, continue aspiration precautions, consider water boluses Result Diagram: 04/03/18 0430 04/03/18 0430 Results 24hrs Laboratory Tests Test 04/02/18 17:02 04/03/18 04:30 04/03/18 05:05 04/03/18 11:26 Prothrombin Time 16.8 H Prothrombin Time 1.3 Ratio INR 1.35 International Normalized Ratio Sodium Level 160 H 163 *H Potassium Level 3.2 L 3.9 Chloride Level 133 H 130 H Carbon Dioxide 27 30 Level Anion Gap 0 L 3 L Blood Urea 75 H 61 H Nitrogen Creatinine 1.63 H 1.56 H Est Glomerular Filtrat Rate mL/min Glucose Level 111 107 Calcium Level 7.6 L 7.8 L White Blood 19.8 H Count Red Blood Count 3.46 L Hemoglobin 10.1 #L Hematocrit 31.1 L Mean Corpuscular 89.9 Volume Mean Corpuscular 29.2 Hemoglobin Mean Corpuscular 32.5 Hemoglobin Claribel nt Red Cell 17.2 H Distribution Width Platelet Count 133 L Mean Platelet 13.4 H Volume Immature 2.000 H Granulocytes % Neutrophils % Segmented 85 H Neutrophils % (Manual) Band Neutrophils 9 H % (Manual) Lymphocytes % Reactive 1 H Lymphocytes % (Manual) Monocytes % Monocytes % 3 (Manual) Eosinophils % Eosinophils % 2 (Manual) Basophils % Nucleated Red 0.0 Blood Cells % Immature 0.400 H Granulocytes # Neutrophils # Neutrophils # 17.2 H (Manual) Band Neutrophils 1.7 H # Lymphocytes # Reactive 0.1 H Lymphocytes # Monocytes # Monocytes # 0.5 (Manual) Eosinophils # Basophils # Nucleated Red Blood Cells # Platelet NORMAL Estimate Giant Platelets 1 H Polychromasia 1+ Poikilocytosis 1+ Anisocytosis 1+ Microcytosis 1+ Target Cells 1+ Random 7.8 Vancomycin Level Lab Scanned BLOOD TRANSFUSIO REFERENCE LAB Report N Consultation Date/Type/Reason Admit Date/Time Mar 27, 2018 at 20:08 Initial Consult Date 04/02/18 Type of Consult ID Requesting Provider: DEENA BASILIO Exam/Review of Systems Vital Signs Vitals Vital Signs Date Temp Pulse Resp B/P (MAP) Pulse Ox O2 O2 Flow FiO2 Time Delivery Rate 04/03/18 69 22 101/51 98 Room Air 16:15 (68) 04/03/18 98.2 16:00 04/03/18 21 05:50 04/02/18 1.0 04:00 Intake and Output 04/02/18 04/02/18 04/03/18 1515:00 23:00 07:00 IntakeIntake Total 939.72 ml 843.76 ml 489.40 ml OutputOutput Total 1095 ml 420 ml 485 ml BalanceBalance -155.28 ml 423.76 ml 4.40 ml Medications Medications Current Medications Ondansetron HCl (Zofran Inj) 4 mg Q6H PRN IV NAUSEA AND/OR VOMITING; Start 03/27/18 at 20:00 Acetaminophen (Tylenol Tab) 650 mg Q6H PRN PO PAIN LEVEL 1-3 OR FEVER; Start 03/27/18 at 20:00 Morphine Sulfate (morphine) 2 mg Q4H PRN IV PAIN LEVEL 7-10; Start 03/27/18 at 20:00 Collagenase (Santyl) 1 applic DAILY TOP Last administered on 04/03/18at 09:47; Admin Dose 1 APPLIC; Start 03/31/18 at 09:00 Norepinephrine 16 mg/Dextrose 500 ml @ 1.88 mls/hr TITRATE IV Last administered on 04/02/18at 23:46; Admin Dose 3.75 MLS/HR; Start 03/31/18 at 09:00 Mupirocin (Bactroban) 1 applic BID TOP Last administered on 04/03/18at 09:47; Admin Dose 1 APPLIC; Start 03/31/18 at 11:00 Meropenem/Sodium Chloride 50 ml @ 100 mls/hr Q12H IVPB Last administered on 04/03/18at 05:01; Admin Dose 100 MLS/HR; Start 03/31/18 at 17:00 Vancomycin HCl (Vanco Iv Per Pharmacy) VANCOMYCIN PER PHARMACY PER PROTOCOL XX ; Start 04/01/18 at 10:00 Dextrose 1,000 ml @ 50 mls/hr Q20H IV Last administered on 04/03/18at 09:47; Admin Dose 50 MLS/HR; Start 04/02/18 at 12:30 Pantoprazole (Protonix Iv) 40 mg BID@06,18 IV Last administered on 04/03/18at 05:01; Admin Dose 40 MG; Start 04/02/18 at 18:00 Vancomycin HCl 1 gm/Dextrose 250 ml @ 125 mls/hr Q48H IVPB Last administered on 04/03/18at 14:35; Admin Dose 125 MLS/HR; Start 04/03/18 at 13:30 DAVONTE MCMAHAN NP Apr 03, 2018 16:59
[2018-04-04] VITALS (52 sets, daily range): BP systolic 84–135; BP diastolic 35–64; PULSE 67–93; RESP 17–27
[2018-04-04] MEDS: DEXTROSE 5% 1,000 ML IV SCH ×2 (04:30→10:43)
[2018-04-04] MEDS: MEROPENEM 500MG/50 ML (PMX) 50 ML IVPB SCH ×2 (05:41→17:18)
[2018-04-04] MEDS: PANTOPRAZOLE 40 MG INJ IV SCH ×2 (05:41→17:18)
[2018-04-04] MEDS: MUPIROCIN 2% 22 GM OINT TOP SCH ×2 (08:20→21:08)
--- NOTE | 2018-04-04 08:56 | CONS ---
Date/Time of Note Date/Time of Note DATE: 04/04/18 TIME: 08:54 Assessment/Plan Assessment/Plan Hospital Course Impression: 1. coffee ground emesis 2. acute post hemorrhagic anemia 3. melena 4. upper GI bleed 5. EGD 04/03/17: multiple gastric ulcer (). One of the GI is oozing of blood s/p hemostasis with placement of hemoclip. Recommendations: 1. no NSAIDS 2. f/u path results 3. transfuse PRN hgb less than 7 4. if melena recurs and requires pRBC, then will need to increase PPI from bid dosing to gtt dosing Result Diagram: 04/04/18 0420 04/04/18 0420 Results 24hrs Laboratory Tests Test 04/03/18 11:26 04/04/18 04:20 Lab Scanned Report REFERENCE LAB White Blood Count 16.5 H Red Blood Count 3.39 L Hemoglobin 9.6 L Hematocrit 31.9 L Mean Corpuscular Volume 94.1 Mean Corpuscular Hemoglobin 28.3 L Mean Corpuscular Hemoglobin Concent 30.1 L Red Cell Distribution Width 17.2 H Platelet Count 129 L Mean Platelet Volume 13.4 H Immature Granulocytes % 1.600 H Neutrophils % 83.6 H Lymphocytes % 8.6 L Monocytes % 3.6 Eosinophils % 2.4 Basophils % 0.2 Nucleated Red Blood Cells % 0.0 Immature Granulocytes # 0.260 H Neutrophils # 13.8 H Lymphocytes # 1.4 Monocytes # 0.6 Eosinophils # 0.4 Basophils # 0.0 Nucleated Red Blood Cells # 0.0 Sodium Level 158 H Potassium Level 3.5 Chloride Level 131 H Carbon Dioxide Level 27 Anion Gap 0 L Blood Urea Nitrogen 48 #H Creatinine 1.25 H Est Glomerular Filtrat Rate mL/min Glucose Level 137 Calcium Level 7.6 L Consultation Date/Type/Reason Admit Date/Time Mar 27, 2018 at 20:08 Initial Consult Date 04/02/18 Type of Consult Gastroenterology Requesting Provider: DEENA BASILIO 24 HR Interval Summary Free Text/Dictation no n/v Constitutional: disoriented Exam/Review of Systems Vital Signs Vitals Vital Signs Date Temp Pulse Resp B/P (MAP) Pulse Ox O2 O2 Flow FiO2 Time Delivery Rate 04/04/18 97.4 73 21 109/53 98 Room Air 08:00 (71) 04/03/18 21 18:14 04/02/18 1.0 04:00 Intake and Output 04/03/18 04/03/18 04/04/18 1515:00 23:00 07:00 IntakeIntake Total 694 ml 1090 ml 1000 ml OutputOutput Total 460 ml 315 ml 300 ml BalanceBalance 234 ml 775 ml 700 ml Exam Psych: confusion Head: normocephalic, atraumatic Eyes: nl conjunctiva, EOMI, nl lids ENMT: nl external ears & nose, nl lips & teeth, nl nasal mucosa & septum Neck: supple, non-tender Respiratory: clear to auscultation, normal air movement Cardiovascular: regular rate and rhythm, nl pulses Gastrointestinal: soft, non-tender, bowel sounds Medications Medications Current Medications Ondansetron HCl (Zofran Inj) 4 mg Q6H PRN IV NAUSEA AND/OR VOMITING; Start 03/27/18 at 20:00 Acetaminophen (Tylenol Tab) 650 mg Q6H PRN PO PAIN LEVEL 1-3 OR FEVER; Start 03/27/18 at 20:00 Morphine Sulfate (morphine) 2 mg Q4H PRN IV PAIN LEVEL 7-10; Start 03/27/18 at 20:00 Collagenase (Santyl) 1 applic DAILY TOP Last administered on 04/03/18 09:47; Admin Dose 1 APPLIC; Start 03/31/18 at 09:00 Norepinephrine 16 mg/Dextrose 500 ml @ 1.88 mls/hr TITRATE IV Last administered on 04/02/18 23:46; Admin Dose 3.75 MLS/HR; Start 03/31/18 at 09:00 Mupirocin (Bactroban) 1 applic BID TOP Last administered on 04/04/18 08:20; Adm in Dose 1 APPLIC; Start 03/31/18 at 11:00 Meropenem/Sodium Chloride 50 ml @ 100 mls/hr Q12H IVPB Last administered on 04/04/18 05:41; Admin Dose 100 MLS/HR; Start 03/31/18 at 17:00 Vancomycin HCl (Vanco Iv Per Pharmacy) VANCOMYCIN PER PHARMACY PER PROTOCOL XX ; Start 04/01/18 at 10:00 Dextrose 1,000 ml @ 50 mls/hr Q20H IV Last administered on 04/04/18 04:30; Admin Dose 50 MLS/HR; Start 04/02/18 at 12:30 Pantoprazole (Protonix Iv) 40 mg BID@06,18 IV Last administered on 04/04/18at 05:41; Admin Dose 40 MG; Start 04/02/18 at 18:00 Vancomycin HCl 1 gm/Dextrose 250 ml @ 125 mls/hr Q48H IVPB Last administered on 04/03/18at 14:35; Admin Dose 125 MLS/HR; Start 04/03/18 at 13:30 TAMIKO JOHNSON MD Apr 04, 2018 08:56
[2018-04-04] MEDS: COLLAGENASE 5 GM (UD JAR) TOP SCH (09:04)
--- NOTE | 2018-04-04 12:20 | CONS ---
Date/Time of Note Date/Time of Note DATE: 04/04/18 TIME: 12:16 Consult Date/Type/Reason Admit Date/Time Mar 27, 2018 at 20:08 Initial Consult Date 03/29/18 Type of Consultation: Pulm/CCM Requesting Provider: DEENA BASILIO Subjective Comfortable this morning. Off pressors Objective Vital Signs Date Temp Pulse Resp B/P (MAP) Pulse Ox O2 O2 Flow FiO2 Time Delivery Rate 04/04/18 85 21 89/36 (53) 100 Room Air 10:00 04/04/18 97.4 08:00 04/03/18 21 18:14 04/02/18 1.0 04:00 Intake and Output 04/03/18 04/03/18 04/04/18 1414:59 22:59 06:59 IntakeIntake Total 717.75 ml 1020 ml 1000 ml OutputOutput Total 480 ml 300 ml 315 ml BalanceBalance 237.75 ml 720 ml 685 ml Exam GENERAL: Elderly appearing gentleman with nasal cannula O2 nasogastric tube in place VITAL SIGNS: per chart NECK: Supple. No JVD or lymphadenopathy. CARDIAC EXAM: S1, S2. No added sounds or murmurs. CHEST: Diminished air entry bilaterally with few rales ABDOMEN: Soft, nontender. No guarding or rebound. EXTREMITIES: No cyanosis, clubbing or edema. NEUROLOGIC: Generalized weakness. Results/Medications Result Diagram: 04/04/18 0420 04/04/18 0420 Results 24 hrs Laboratory Tests Test 04/04/18 04:20 White Blood Count 16.5 H Red Blood Count 3.39 L Hemoglobin 9.6 L Hematocrit 31.9 L Mean Corpuscular Volume 94.1 Mean Corpuscular Hemoglobin 28.3 L Mean Corpuscular Hemoglobin Concent 30.1 L Red Cell Distribution Width 17.2 H Platelet Count 129 L Mean Platelet Volume 13.4 H Immature Granulocytes % 1.600 H Neutrophils % 83.6 H Lymphocytes % 8.6 L Monocytes % 3.6 Eosinophils % 2.4 Basophils % 0.2 Nucleated Red Blood Cells % 0.0 Immature Granulocytes # 0.260 H Neutrophils # 13.8 H Lymphocytes # 1.4 Monocytes # 0.6 Eosinophils # 0.4 Basophils # 0.0 Nucleated Red Blood Cells # 0.0 Sodium Level 158 H Potassium Level 3.5 Chloride Level 131 H Carbon Dioxide Level 27 Anion Gap 0 L Blood Urea Nitrogen 48 #H Creatinine 1.25 H Est Glomerular Filtrat Rate mL/min Glucose Level 137 Calcium Level 7.6 L Medications Current Medications Ondansetron HCl (Zofran Inj) 4 mg Q6H PRN IV NAUSEA AND/OR VOMITING; Start 03/27/18 at 20:00 Acetaminophen (Tylenol Tab) 650 mg Q6H PRN PO PAIN LEVEL 1-3 OR FEVER; Start 03/27/18 at 20:00 Morphine Sulfate (morphine) 2 mg Q4H PRN IV PAIN LEVEL 7-10; Start 03/27/18 at 20:00 Collagenase (Santyl) 1 applic DAILY TOP Last administered on 04/04/18 09:04; Admin Dose 1 APPLIC; Start 03/31/18 at 09:00 Norepinephrine 16 mg/Dextrose 500 ml @ 1.88 mls/hr TITRATE IV Last administered on 04/02/18 23:46; Admin Dose 3.75 MLS/HR; Start 03/31/18 at 09:00 Mupirocin (Bactroban) 1 applic BID TOP Last administered on 04/04/18 08:20; Admin Dose 1 APPLIC; Start 03/31/18 at 11:00 Meropenem/Sodium Chloride 50 ml @ 100 mls/hr Q12H IVPB Last administered on 04/04/18 05:41; Admin Dose 100 MLS/HR; Start 03/31/18 at 17:00 Vancomycin HCl (Vanco Iv Per Pharmacy) VANCOMYCIN PER PHARMACY PER PROTOCOL XX ; Start 04/01/18 at 10:00 Dextrose 1,000 ml @ 50 mls/hr Q20H IV Last administered on 04/04/18 10:43; Admin Dose 50 MLS/HR; Start 04/02/18 at 12:30 Pantoprazole (Protonix Iv) 40 mg BID@06,18 IV Last administered on 04/04/18 05:41; Admin Dose 40 MG; Start 04/02/18 at 18:00 Vancomycin HCl 750 mg/Dextrose/ Water 150 ml @ 75 mls/hr Q24H IVPB ; Start 04/04/18 at 14:00 Assessment/Plan Chief Complaint/Hosp Course IMP: 1. Respiratory Failure--with hypoxemic component. Tachypnea likely due to metabolic acidosis 2/2 FLORES respiratory status improved 2. Urinary tract infection with s/p septic shock. 3. FLORES--likely pre-renal vs.ATN 4. Metabolic Acidosis 2/2 #3--improved 5. AMS--Dementia and uremia 6. HyperNa+ 7. s/p GI bleed. RECS: 1. IVF's--D5 half NS at 50 cc an hour 2. IV Abx 3. Aspiration precautions, free water 4. GI recs, EGD findings noted. 5. Renal recs 40 min cc time case d/w staff agree with transfer to [facility] BARBIE SAEED MD, [facility] Apr 04, 2018 12:20
--- NOTE | 2018-04-04 12:58 | CONS ---
Date/Time of Note Date/Time of Note DATE: 04/04/18 TIME: 12:57 Assessment/Plan Assessment/Plan Hospital Course No acute events overnight patient is noncommunicative lying comfortably in bed afebrile. Temperature 97.8 pulse 78 respirations 24 blood pressure 92/36 saturation 100% on room air Indwelling: NGT, Honeycutt Microbiology: Urine culture grew E. coli ESBL Chest x-ray revealed bilateral pleural effusions and questionable airspace disease Antimicrobials: Vancomycin meropenem Physical examination: Well-developed chronically ill-appearing wasted elderly man who is in no distress. Head atraumatic normocephalic sclera nonicteric. Neck is supple chest rise symmetrical breath sounds diminished bases. Heart: S 1-S2 abdomen distended tender on palpation extremities without cyanosis Assessment: 1. Sepsis, status post shock 2. S/p GI bleeding===>status post EGD with Hemoclip placement 3. E. coli ESBL UTI 4. MRSA nares colonization 5. Dysphagia 6. Dementia 7. HyperNa Plan: Patient is clinically stable, continue present care and antibiotics, continue aspiration precautions, f/u GI rec-s Result Diagram: 04/04/18 0420 04/04/18 0420 Results 24hrs Laboratory Tests Test 04/04/18 04:20 White Blood Count 16.5 H Red Blood Count 3.39 L Hemoglobin 9.6 L Hematocrit 31.9 L Mean Corpuscular Volume 94.1 Mean Corpuscular Hemoglobin 28.3 L Mean Corpuscular Hemoglobin Concent 30.1 L Red Cell Distribution Width 17.2 H Platelet Count 129 L Mean Platelet Volume 13.4 H Immature Granulocytes % 1.600 H Neutrophils % 83.6 H Lymphocytes % 8.6 L Monocytes % 3.6 Eosinophils % 2.4 Basophils % 0.2 Nucleated Red Blood Cells % 0.0 Immature Granulocytes # 0.260 H Neutrophils # 13.8 H Lymphocytes # 1.4 Monocytes # 0.6 Eosinophils # 0.4 Basophils # 0.0 Nucleated Red Blood Cells # 0.0 Sodium Level 158 H Potassium Level 3.5 Chloride Level 131 H Carbon Dioxide Level 27 Anion Gap 0 L Blood Urea Nitrogen 48 #H Creatinine 1.25 H Est Glomerular Filtrat Rate mL/min Glucose Level 137 Calcium Level 7.6 L Consultation Date/Type/Reason Admit Date/Time Mar 27, 2018 at 20:08 Initial Consult Date 04/02/18 Type of Consult ID Requesting Provider: DEENA BASILIO Exam/Review of Systems Vital Signs Vitals Vital Signs Date Temp Pulse Resp B/P (MAP) Pulse Ox O2 O2 Flow FiO2 Time Delivery Rate 04/04/18 97.8 78 24 92/36 (54) 100 Room Air 12:00 04/03/18 21 18:14 04/02/18 1.0 04:00 Intake and Output 04/03/18 04/03/18 04/04/18 1515:00 23:00 07:00 IntakeIntake Total 694 ml 1090 ml 1000 ml OutputOutput Total 460 ml 315 ml 300 ml BalanceBalance 234 ml 775 ml 700 ml Medications Medications Current Medications Ondansetron HCl (Zofran Inj) 4 mg Q6H PRN IV NAUSEA AND/OR VOMITING; Start 03/27/18 at 20:00 Acetaminophen (Tylenol Tab) 650 mg Q6H PRN PO PAIN LEVEL 1-3 OR FEVER; Start 03/27/18 at 20:00 Morphine Sulfate (morphine) 2 mg Q4H PRN IV PAIN LEVEL 7-10; Start 03/27/18 at 20:00 Collagenase (Santyl) 1 applic DAILY TOP Last administered on 04/04/18 09:04; Admin Dose 1 APPLIC; Start 03/31/18 at 09:00 Norepinephrine 16 mg/Dextrose 500 ml @ 1.88 mls/hr TITRATE IV Last administered on 04/02/18 23:46; Admin Dose 3.75 MLS/HR; Start 03/31/18 at 09:00 Mupirocin (Bactroban) 1 applic BID TOP Last administered on 04/04/18 08:20; Admin Dose 1 APPLIC; Start 03/31/18 at 11:00 Meropenem/Sodium Chloride 50 ml @ 100 mls/hr Q12H IVPB Last administered on 04/04/18 05:41; Admin Dose 100 MLS/HR; Start 03/31/18 at 17:00 Vancomycin HCl (Vanco Iv Per Pharmacy) VANCOMYCIN PER PHARMACY PER PROTOCOL XX ; Start 04/01/18 at 10:00 Dextrose 1,000 ml @ 50 mls/hr Q20H IV Last administered on 04/04/18at 10:43; Ad min Dose 50 MLS/HR; Start 04/02/18 at 12:30 Pantoprazole (Protonix Iv) 40 mg BID@06,18 IV Last administered on 04/04/18at 05:41; Admin Dose 40 MG; Start 04/02/18 at 18:00 Vancomycin HCl 750 mg/Dextrose/ Water 150 ml @ 75 mls/hr Q24H IVPB ; Start 04/04/18 at 14:00 DAVONTE MCMAHAN NP Apr 04, 2018 12:58
[2018-04-04] MEDS: VANCOMYCIN 750 MG in DEXTROSE 5% 150 ML IVPB SCH (13:30)
--- NOTE | 2018-04-04 14:16 | PN ---
Date/Time of Note Date/Time of Note DATE: 04/04/18 TIME: 14:15 Assessment/Plan VTE Prophylaxis Risk score (from [facility])>0 risk: 9 SCD applied (from [facility]): Yes SCD contraindicated: other Pharmacological prophylaxis: other Pharm contraindication: other Lines/Catheters IV Catheter Type (from [facility]): Central Line Central line still needed: Yes Urinary Cath still in place: Yes Reason Cath still needed: urinary retention Assessment/Plan Assessment/Plan -Anemia secondary to possible GI bleed. Dr. Gomes is asked to see patient in GI consultation. Transfuse as needed, monitor hemoglobin and hematocrit. -Bleeding gastric ulcers s/p hemostasis with placement of hemoclip during EGD by Dr Guallpa. -Septic shock secondary to urinary tract infection, continue antibiotics. Dr. Guzman is following in infection disease consultation. -Hypoxemic respiratory failure, resolving. Dr. Nam is following in pu lmonology consultation. -Acute kidney injury, resolving. Dr. Senior following in nephrology consultation. -Hypernatremia -Dementia -Multiple pressure ulcers -Protein calorie malnutrition Further recommendations based on clinical course. Plan of care discussed with Dr. Kiser. Result Diagram: 04/04/18 0420 04/04/18 0420 Results 24hrs Laboratory Tests Test 04/04/18 04:20 White Blood Count 16.5 H Red Blood Count 3.39 L Hemoglobin 9.6 L Hematocrit 31.9 L Mean Corpuscular Volume 94.1 Mean Corpuscular Hemoglobin 28.3 L Mean Corpuscular Hemoglobin Concent 30.1 L Red Cell Distribution Width 17.2 H Platelet Count 129 L Mean Platelet Volume 13.4 H Immature Granulocytes % 1.600 H Neutrophils % 83.6 H Lymphocytes % 8.6 L Monocytes % 3.6 Eosinophils % 2.4 Basophils % 0.2 Nucleated Red Blood Cells % 0.0 Immature Granulocytes # 0.260 H Neutrophils # 13.8 H Lymphocytes # 1.4 Monocytes # 0.6 Eosinophils # 0.4 Basophils # 0.0 Nucleated Red Blood Cells # 0.0 Sodium Level 158 H Potassium Level 3.5 Chloride Level 131 H Carbon Dioxide Level 27 Anion Gap 0 L Blood Urea Nitrogen 48 #H Creatinine 1.25 H Est Glomerular Filtrat Rate mL/min Glucose Level 137 Calcium Level 7.6 L Subjective 24 Hr Interval Summary Free Text/Dictation bp low- will start on vassopressor Exam/Review of Systems Vital Signs Vitals Vital Signs Date Temp Pulse Resp B/P (MAP) Pulse Ox O2 O2 Flow FiO2 Time Delivery Rate 04/04/18 97.8 78 24 92/36 (54) 100 Room Air 12:00 04/03/18 21 18:14 04/02/18 1.0 04:00 Intake and Output 04/03/18 04/03/18 04/04/18 1515:00 23:00 07:00 IntakeIntake Total 694 ml 1090 ml 1000 ml OutputOutput Total 460 ml 315 ml 300 ml BalanceBalance 234 ml 775 ml 700 ml Medications Medications Current Medications Ondansetron HCl (Zofran Inj) 4 mg Q6H PRN IV NAUSEA AND/OR VOMITING; Start 03/27/18 at 20:00 Acetaminophen (Tylenol Tab) 650 mg Q6H PRN PO PAIN LEVEL 1-3 OR FEVER; Start 03/27/18 at 20:00 Morphine Sulfate (morphine) 2 mg Q4H PRN IV PAIN LEVEL 7-10; Start 03/27/18 at 20:00 Collagenase (Santyl) 1 applic DAILY TOP Last administered on 04/04/18 09:04; Admin Dose 1 APPLIC; Start 03/31/18 at 09:00 Norepinephrine 16 mg/Dextrose 500 ml @ 1.88 mls/hr TITRATE IV Last administered on 04/02/18 23:46; Admin Dose 3.75 MLS/HR; Start 03/31/18 at 09:00 Mupirocin (Bactroban) 1 applic BID TOP Last administered on 04/04/18 08:20; Admin Dose 1 APPLIC; Start 03/31/18 at 11:00 Meropenem/Sodium Chloride 50 ml @ 100 mls/hr Q12H IVPB Last administered on 04/04/18 05:41; Admin Dose 100 MLS/HR; Start 03/31/18 at 17:00 Vancomycin HCl (Vanco Iv Per Pharmacy) VANCOMYCIN PER PHARMACY PER PROTOCOL XX ; Start 04/01/18 at 10:00 Dextrose 1,000 ml @ 50 mls/hr Q20H IV Last administered on 04/04/18at 10:43; Admin Dose 50 MLS/HR; Start 04/02/18 at 12:30 Pantoprazole (Protonix Iv) 40 mg BID@06,18 IV Last administered on 04/04/18at 0 5:41; Admin Dose 40 MG; Start 04/02/18 at 18:00 Vancomycin HCl 750 mg/Dextrose/ Water 150 ml @ 75 mls/hr Q24H IVPB Last administered on 04/04/18at 13:30; Admin Dose 75 MLS/HR; Start 04/04/18 at 14:00 MICHAEL ARZATE Apr 04, 2018 14:16
--- NOTE | 2018-04-04 17:16 | CONS ---
Date/Time of Note Date/Time of Note DATE: 04/04/18 TIME: 17:16 Assessment/Plan Assessment/Plan Assessment/Plan 1. Acute kidney injury on CKD due to ATN + prerenal azotemia 2. acute blood loss anemia- 3. acute hyperkalemia- now resolved 4. acute hypoxemic resp failure 5. Sepsis due to acute UTI 6. Severe metabolic acidosis due to FLORES 7. Hypernatremia 8. Upper GI bleeding Plan: BUN/Cr 48/1.25, Na improved to 158, Continue IVF d5W at 50 cc/hr Renal US showed No evidence of hydronephrosis or mass, Nonobstructing intrarenal calculi are seen in the mid right kidney measuring 4 mm in 7 mm. 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.8 x 6.7 x 8.3 cm no acute indication for HD at this time, will continue to monitor renal function GI has been consulted for upper GI bleeding , Prn Blood Transfusion will follow up Result Diagram: 04/04/18 0420 04/04/18 0420 Results 24hrs Laboratory Tests Test 04/04/18 04:20 White Blood Count 16.5 H Red Blood Count 3.39 L Hemoglobin 9.6 L Hematocrit 31.9 L Mean Corpuscular Volume 94.1 Mean Corpuscular Hemoglobin 28.3 L Mean Corpuscular Hemoglobin Concent 30.1 L Red Cell Distribution Width 17.2 H Platelet Count 129 L Mean Platelet Volume 13.4 H Immature Granulocytes % 1.600 H Neutrophils % 83.6 H Lymphocytes % 8.6 L Monocytes % 3.6 Eosinophils % 2.4 Basophils % 0.2 Nucleated Red Blood Cells % 0.0 Immature Granulocytes # 0.260 H Neutrophils # 13.8 H Lymphocytes # 1.4 Monocytes # 0.6 Eosinophils # 0.4 Basophils # 0.0 Nucleated Red Blood Cells # 0.0 Sodium Level 158 H Potassium Level 3.5 Chloride Level 131 H Carbon Dioxide Level 27 Anion Gap 0 L Blood Urea Nitrogen 48 #H Creatinine 1.25 H Est Glomerular Filtrat Rate mL/min Glucose Level 137 Calcium Level 7.6 L Consultation Date/Type/Reason Admit Date/Time Mar 27, 2018 at 20:08 Initial Consult Date 03/31/18 Type of Consult NEPHROLOGY Requesting Provider: DEENA BASILIO Exam/Review of Systems Vital Signs Vitals Vital Signs Date Temp Pulse Resp B/P (MAP) Pulse Ox O2 O2 Flow FiO2 Time Delivery Rate 04/04/18 97.9 86 27 106/50 99 Room Air 16:00 (68) 04/03/18 21 18:14 04/02/18 1.0 04:00 Intake and Output 04/03/18 04/03/18 04/04/18 1515:00 23:00 07:00 IntakeIntake Total 694 ml 1090 ml 1000 ml OutputOutput Total 460 ml 315 ml 300 ml BalanceBalance 234 ml 775 ml 700 ml Exam GENERAL: more awake, alert today NECK: Supple. No JVD or lymphadenopathy. CARDIAC EXAM: S1, S2. No added sounds or murmurs. CHEST: Diminished air entry bilaterally with few rales ABDOMEN: Soft, nontender. No guarding or rebound. EXTREMITIES: No cyanosis, clubbing or edema. NEUROLOGIC: Generalized weakness Medications Medications Current Medications Ondansetron HCl (Zofran Inj) 4 mg Q6H PRN IV NAUSEA AND/OR VOMITING; Start 03/27/18 at 20:00 Acetaminophen (Tylenol Tab) 650 mg Q6H PRN PO PAIN LEVEL 1-3 OR FEVER; Start 03/27/18 at 20:00 Morphine Sulfate (morphine) 2 mg Q4H PRN IV PAIN LEVEL 7-10; Start 03/27/18 at 20:00 Collagenase (Santyl) 1 applic DAILY TOP Last administered on 04/04/18at 09:04; Admin Dose 1 APPLIC; Start 03/31/18 at 09:00 Norepinephrine 16 mg/Dextrose 500 ml @ 1.88 mls/hr TITRATE IV Last administered on 04/04/18 14:21; Admin Dose 1.88 MLS/HR; Start 03/31/18 at 09:00 Mupirocin (Bactroban) 1 applic BID TOP Last administered on 04/04/18 08:20; Admin Dose 1 APPLIC; Start 03/31/18 at 11:00 Meropenem/Sodium Chloride 50 ml @ 100 mls/hr Q12H IVPB Last administered on 04/04/18 05:41; Admin Dose 100 MLS/HR; Start 03/31/18 at 17:00 Vancomycin HCl (Vanco Iv Per Pharmacy) VANCOMYCIN PER PHARMACY PER PROTOCOL XX ; Start 04/01/18 at 10:00 Dextrose 1,000 ml @ 50 mls/hr Q20H IV Last administered on 04/04/18at 10:43; Admin Dose 50 MLS/HR; Start 04/02/18 at 12:30 Pantoprazole (Protonix Iv) 40 mg BID@06,18 IV Last administered on 04/04/18at 05:41; Admin Dose 40 MG; Start 04/02/18 at 18:00 Vancomycin HCl 750 mg/Dextrose/ Water 150 ml @ 75 mls/hr Q24H IVPB Last administered on 04/04/18at 13:30; Admin Dose 75 MLS/HR; Start 04/04/18 at 14:00 STEVEN BLANCO MD Apr 04, 2018 17:16
[2018-04-05] VITALS (87 sets, daily range): BP systolic 89–151; BP diastolic 41–75; PULSE 65–91; RESP 15–31
[2018-04-05] MEDS: PANTOPRAZOLE 40 MG INJ IV SCH ×2 (05:52→17:12)
[2018-04-05] MEDS: MEROPENEM 500MG/50 ML (PMX) 50 ML IVPB SCH ×2 (05:52→17:12)
[2018-04-05] MEDS: DEXTROSE 5% 1,000 ML IV SCH (07:21)
[2018-04-05] MEDS: MUPIROCIN 2% 22 GM OINT TOP SCH ×2 (08:55→21:53)
[2018-04-05] MEDS: COLLAGENASE 5 GM (UD JAR) TOP SCH (08:57)
--- NOTE | 2018-04-05 13:13 | CONS ---
Date/Time of Note Date/Time of Note DATE: 04/05/18 TIME: 13:13 Assessment/Plan Assessment/Plan Assessment/Plan 1. Acute kidney injury on CKD due to ATN + prerenal azotemia 2. acute blood loss anemia- 3. acute hyperkalemia- now resolved 4. acute hypoxemic resp failure 5. Sepsis due to acute UTI 6. Severe metabolic acidosis due to FLORES 7. Hypernatremia 8. Upper GI bleeding Plan: BUN/Cr 41/1.08, Na improved to 153, K 3.3, Continue IVF d5W at 50 cc/hr , Midodrine 10mg PO Q 8 hr, Titrate levophed to off Renal US showed No evidence of hydronephrosis or mass, Nonobstructing intrarenal calculi are seen in the mid right kidney measuring 4 mm in 7 mm. 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.8 x 6.7 x 8.3 cm no acute indication for HD at this time, will continue to monitor renal function GI has been consulted for upper GI bleeding , Prn Blood Transfusion will follow up Result Diagram: 04/05/18 0448 04/05/18 0448 Results 24hrs Laboratory Tests Test 04/05/18 04:48 White Blood Count 18.5 H Red Blood Count 3.39 L Hemoglobin 9.6 L Hematocrit 31.5 L Mean Corpuscular Volume 92.9 Mean Corpuscular Hemoglobin 28.3 L Mean Corpuscular Hemoglobin Concent 30.5 L Red Cell Distribution Width 17.0 H Platelet Count 142 Mean Platelet Volume 13.3 H Immature Granulocytes % 1.600 H Neutrophils % 83.1 H Lymphocytes % 9.1 L Monocytes % 3.6 Eosinophils % 2.4 Basophils % 0.2 Nucleated Red Blood Cells % 0.0 Immature Granulocytes # 0.290 H Neutrophils # 15.4 H Lymphocytes # 1.7 Monocytes # 0.7 Eosinophils # 0.4 Basophils # 0.0 Nucleated Red Blood Cells # 0.0 Sodium Level 153 H Potassium Level 3.3 L Chloride Level 128 H Carbon Dioxide Level 29 Anion Gap -4 L Blood Urea Nitrogen 41 H Creatinine 1.08 Est Glomerular Filtrat Rate mL/min Glucose Level 124 Calcium Level 7.4 L Consultation Date/Type/Reason Admit Date/Time Mar 27, 2018 at 20:08 Initial Consult Date 03/31/18 Type of Consult NEPHROLOGY Requesting Provider: DEENA BASILIO 24 HR Interval Summary Free Text/Dictation still on levophed for BP support , aler awake, RR stable Exam/Review of Systems Vital Signs Vitals Vital Signs Date Temp Pulse Resp B/P (MAP) Pulse Ox O2 O2 Flow FiO2 Time Delivery Rate 04/05/18 85 25 107/48 98 09:30 (67) 04/05/18 98.3 08:00 04/05/18 Room Air 07:00 04/03/18 21 18:14 04/02/18 1.0 04:00 Intake and Output 04/04/18 04/04/18 04/05/18 1414:59 22:59 06:59 IntakeIntake Total 950 ml 975.500 ml 980.00 ml OutputOutput Total 520 ml 430 ml 350 ml BalanceBalance 430 ml 545.500 ml 630.00 ml Exam GENERAL: more awake, alert today NECK: Supple. No JVD or lymphadenopathy. CARDIAC EXAM: S1, S2. No added sounds or murmurs. CHEST: Diminished air entry bilaterally with few rales ABDOMEN: Soft, nontender. No guarding or rebound. EXTREMITIES: No cyanosis, clubbing or edema. NEUROLOGIC: Generalized weakness Medications Medications Current Medications Ondansetron HCl (Zofran Inj) 4 mg Q6H PRN IV NAUSEA AND/OR VOMITING; Start 03/27/18 at 20:00 Acetaminophen (Tylenol Tab) 650 mg Q6H PRN PO PAIN LEVEL 1-3 OR FEVER; Start 03/27/18 at 20:00 Morphine Sulfate (morphine) 2 mg Q4H PRN IV PAIN LEVEL 7-10; Start 03/27/18 at 20:00 Collagenase (Santyl) 1 applic DAILY TOP Last administered on 04/05/18 08:57; Admin Dose 1 APPLIC; Start 03/31/18 at 09:00 Norepinephrine 16 mg/Dextrose 500 ml @ 1.88 mls/hr TITRATE IV Last administered on 04/04/18 14:21; Admin Dose 1.88 MLS/HR; Start 03/31/18 at 09:00 Mupirocin (Bactroban) 1 applic BID TOP Last administered on 04/05/18 08:55; Admin Dose 1 APPLIC; Start 03/31/18 at 11:00 Meropenem/Sodium Chloride 50 ml @ 100 mls/hr Q12H IVPB Last administered on 04/05/18at 05:52; Admin Dose 100 MLS/HR; Start 03/31/18 at 17:00 Vancomycin HCl (Vanco Iv Per Pharmacy) VANCOMYCIN PER PHARMACY PER PROTOCOL XX ; Start 04/01/18 at 10:00 Dextrose 1,000 ml @ 50 mls/hr Q20H IV Last administered on 04/05/18at 07:21; Admin Dose 50 MLS/HR; Start 04/02/18 at 12:30 Pantoprazole (Protonix Iv) 40 mg BID@06,18 IV Last administered on 04/05/18at 05:52; Admin Dose 40 MG; Start 04/02/18 at 18:00 Vancomycin HCl 750 mg/Dextrose/ Water 150 ml @ 75 mls/hr Q24H IVPB Last administered on 04/04/18at 13:30; Admin Dose 75 MLS/HR; Start 04/04/18 at 14:00 STEVEN BLANCO MD Apr 05, 2018 13:13
--- NOTE | 2018-04-05 13:15 | CONS ---
Date/Time of Note Date/Time of Note DATE: 04/05/18 TIME: 13:14 Assessment/Plan Assessment/Plan Hospital Course No acute changes patient is lying comfortably in bed. He is lethargic but arousable and follows simple commands no fevers overnight WBC 18.5 H&H 9.6 and 31.5 platelets 142 neutrophils 83.1 BUN 41 creatinine 1.08 Indwelling: NGT, Honeycutt Microbiology: Urine culture grew E. coli ESBL Chest x-ray revealed bilateral pleural effusions and questionable airspace disease Antimicrobials: Vancomycin meropenem Physical examination: Well-developed chronically ill-appearing wasted elderly man who is in no distress. Head atraumatic normocephalic sclera nonicteric. Neck is supple chest rise symmetrical breath sounds diminished bases. Heart: S1-S2 abdomen distended tender on palpation extremities without cyanosis Assessment: 1. Sepsis, status post shock 2. GI bleeding===>status post EGD with Hemoclip placement 3. E. coli ESBL UTI 4. MRSA nares colonization 5. Dysphagia 6. Dementia Plan: Patient is clinically stable, continue present, aspiration precautions, f/u GI rec-s Result Diagram: 04/05/18 0448 04/05/18 0448 Results 24hrs Laboratory Tests Test 04/05/18 04:48 White Blood Count 18.5 H Red Blood Count 3.39 L Hemoglobin 9.6 L Hematocrit 31.5 L Mean Corpuscular Volume 92.9 Mean Corpuscular Hemoglobin 28.3 L Mean Corpuscular Hemoglobin Concent 30.5 L Red Cell Distribution Width 17.0 H Platelet Count 142 Mean Platelet Volume 13.3 H Immature Granulocytes % 1.600 H Neutrophils % 83.1 H Lymphocytes % 9.1 L Monocytes % 3.6 Eosinophils % 2.4 Basophils % 0.2 Nucleated Red Blood Cells % 0.0 Immature Granulocytes # 0.290 H Neutrophils # 15.4 H Lymphocytes # 1.7 Monocytes # 0.7 Eosinophils # 0.4 Basophils # 0.0 Nucleated Red Blood Cells # 0.0 Sodium Level 153 H Potassium Level 3.3 L Chloride Level 128 H Carbon Dioxide Level 29 Anion Gap -4 L Blood Urea Nitrogen 41 H Creatinine 1.08 Est Glomerular Filtrat Rate mL/min Glucose Level 124 Calcium Level 7.4 L Consultation Date/Type/Reason Admit Date/Time Mar 27, 2018 at 20:08 Initial Consult Date 04/02/18 Type of Consult ID Requesting Provider: DEENA BASILIO Exam/Review of Systems Vital Signs Vitals Vital Signs Date Temp Pulse Resp B/P (MAP) Pulse Ox O2 O2 Flow FiO2 Time Delivery Rate 04/05/18 85 25 107/48 98 09:30 (67) 04/05/18 98.3 08:00 04/05/18 Room Air 07:00 04/03/18 21 18:14 04/02/18 1.0 04:00 Intake and Output 04/04/18 04/04/18 04/05/18 1515:00 23:00 07:00 IntakeIntake Total 950 ml 979.250 ml 930.00 ml OutputOutput Total 545 ml 425 ml 350 ml BalanceBalance 405 ml 554.250 ml 580.00 ml Medications Medications Current Medications Ondansetron HCl (Zofran Inj) 4 mg Q6H PRN IV NAUSEA AND/OR VOMITING; Start 03/27/18 at 20:00 Acetaminophen (Tylenol Tab) 650 mg Q6H PRN PO PAIN LEVEL 1-3 OR FEVER; Start 03/27/18 at 20:00 Morphine Sulfate (morphine) 2 mg Q4H PRN IV PAIN LEVEL 7-10; Start 03/27/18 at 20:00 Collagenase (Santyl) 1 applic DAILY TOP Last administered on 04/05/18at 08:57; Admin Dose 1 APPLIC; Start 03/31/18 at 09:00 Norepinephrine 16 mg/Dextrose 500 ml @ 1.88 mls/hr TITRATE IV Last administered on 04/04/18at 14:21; Admin Dose 1.88 MLS/HR; Start 03/31/18 at 09:00 Mupirocin (Bactroban) 1 applic BID TOP Last administered on 04/05/18 08:55; Admin Dose 1 APPLIC; Start 03/31/18 at 11:00 Meropenem/Sodium Chloride 50 ml @ 100 mls/hr Q12H IVPB Last administered on 04/05/18at 05:52; Admin Dose 100 MLS/HR; Start 03/31/18 at 17:00 Vancomycin HCl (Vanco Iv Per Pharmacy) VANCOMYCIN PER PHARMACY PER PROTOCOL XX ; Start 04/01/18 at 10:00 Dextrose 1,000 ml @ 50 mls/hr Q20H IV Last administered on 04/05/18at 07:21; Admin Dose 50 MLS/HR; Start 04/02/18 at 12:30 Pantoprazole (Protonix Iv) 40 mg BID@06,18 IV Last administered on 04/05/18at 05:52; Admin Dose 40 MG; Start 04/02/18 at 18:00 Vancomycin HCl 750 mg/Dextrose/ Water 150 ml @ 75 mls/hr Q24H IVPB Last administered on 04/04/18at 13:30; Admin Dose 75 MLS/HR; Start 04/04/18 at 14:00 DAVONTE MCMAHAN NP Apr 05, 2018 13:15
--- NOTE | 2018-04-05 13:26 | CONS ---
Date/Time of Note Date/Time of Note DATE: 04/05/18 TIME: 13:23 Consult Date/Type/Reason Admit Date/Time Mar 27, 2018 at 20:08 Initial Consult Date 03/29/18 Type of Consultation: Pulm/CCM Requesting Provider: DEENA BASILIO Subjective No events overnight. Objective Vital Signs Date Temp Pulse Resp B/P (MAP) Pulse Ox O2 O2 Flow FiO2 Time Delivery Rate 04/05/18 85 25 107/48 98 09:30 (67) 04/05/18 98.3 08:00 04/05/18 Room Air 07:00 04/03/18 21 18:14 04/02/18 1.0 04:00 Intake and Output 04/04/18 04/04/18 04/05/18 1414:59 22:59 06:59 IntakeIntake Total 950 ml 975.500 ml 980.00 ml OutputOutput Total 520 ml 430 ml 350 ml BalanceBalance 430 ml 545.500 ml 630.00 ml Exam HEENT: Neck supple; no JVD; no LAD CVS: RRR, S1 and S2 CHEST: Clear ABD: Soft, NT, + BS EXT: No c/c/e NEURO: A&O x 3; moving all extremities Results/Medications Result Diagram: 04/05/188 04/05/18 0448 Results 24 hrs Laboratory Tests Test 04/05/18 04:48 White Blood Count 18.5 H Red Blood Count 3.39 L Hemoglobin 9.6 L Hematocrit 31.5 L Mean Corpuscular Volume 92.9 Mean Corpuscular Hemoglobin 28.3 L Mean Corpuscular Hemoglobin Concent 30.5 L Red Cell Distribution Width 17.0 H Platelet Count 142 Mean Platelet Volume 13.3 H Immature Granulocytes % 1.600 H Neutrophils % 83.1 H Lymphocytes % 9.1 L Monocytes % 3.6 Eosinophils % 2.4 Basophils % 0.2 Nucleated Red Blood Cells % 0.0 Immature Granulocytes # 0.290 H Neutrophils # 15.4 H Lymphocytes # 1.7 Monocytes # 0.7 Eosinophils # 0.4 Basophils # 0.0 Nucleated Red Blood Cells # 0.0 Sodium Level 153 H Potassium Level 3.3 L Chloride Level 128 H Carbon Dioxide Level 29 Anion Gap -4 L Blood Urea Nitrogen 41 H Creatinine 1.08 Est Glomerular Filtrat Rate mL/min Glucose Level 124 Calcium Level 7.4 L Medications Current Medications Ondansetron HCl (Zofran Inj) 4 mg Q6H PRN IV NAUSEA AND/OR VOMITING; Start 03/27/18 at 20:00 Acetaminophen (Tylenol Tab) 650 mg Q6H PRN PO PAIN LEVEL 1-3 OR FEVER; Start 03/27/18 at 20:00 Morphine Sulfate (morphine) 2 mg Q4H PRN IV PAIN LEVEL 7-10; Start 03/27/18 at 20:00 Collagenase (Santyl) 1 applic DAILY TOP Last administered on 04/05/18 08:57; Admin Dose 1 APPLIC; Start 03/31/18 at 09:00 Norepinephrine 16 mg/Dextrose 500 ml @ 1.88 mls/hr TITRATE IV Last administered on 04/04/18 14:21; Admin Dose 1.88 MLS/HR; Start 03/31/18 at 09:00 Mupirocin (Bactroban) 1 applic BID TOP Last administered on 04/05/18 08:55; Admin Dose 1 APPLIC; Start 03/31/18 at 11:00 Meropenem/Sodium Chloride 50 ml @ 100 mls/hr Q12H IVPB Last administered on 04/05/18 05:52; Admin Dose 100 MLS/HR; Start 03/31/18 at 17:00 Vancomycin HCl (Vanco Iv Per Pharmacy) VANCOMYCIN PER PHARMACY PER PROTOCOL XX ; Start 04/01/18 at 10:00 Dextrose 1,000 ml @ 50 mls/hr Q20H IV Last administered on 04/05/18 07:21; Admin Dose 50 MLS/HR; Start 04/02/18 at 12:30 Pantoprazole (Protonix Iv) 40 mg BID@06,18 IV Last administered on 04/05/18 05:52; Admin Dose 40 MG; Start 04/02/18 at 18:00 Vancomycin HCl 750 mg/Dextrose/ Water 150 ml @ 75 mls/hr Q24H IVPB Last administered on 04/04/18 13:30; Admin Dose 75 MLS/HR; Start 04/04/18 at 14:00 Assessment/Plan Chief Complaint/Hosp Course Briefly, this is a 87-year-old gentleman with history of dementia, functional quadriplegia hypertension, BPH history of right humerus fracture complicated by DVT s/p IVC filter, E. coli urinary tract infection, and multiple pressure ulcers admitted with AMS due to urosepsis with associated FLORES and hypoxemic respiratory failure. CT abdomen also notable for possible PSBO. Additional Assessment/Plan IMP: 1. s/p Respiratory Failure--with hypoxemic component. Tachypnea likely due to metabolic acidosis 2/2 FLORES respiratory status improved 2. Urinary tract infection septic shock. 3. FLORES--likely pre-renal vs.ATN 4. Metabolic Acidosis 2/2 #3--improved 5. AMS--Dementia and uremia 6. HyperNa+ 7. s/p GI bleed RECS: 1. Start midodrine 10 mg Q 8 2. Titrate off levophed gtt 3. Aspiration precautions, free water 4. Follow H/H 5. Aspiration precautions 40 min cc time case d/w staff JOSE PORTILLO MD Apr 05, 2018 13:26
--- NOTE | 2018-04-05 13:46 | PN ---
Date/Time of Note Date/Time of Note DATE: 04/05/18 TIME: 13:46 Assessment/Plan VTE Prophylaxis Risk score (from [facility])>0 risk: 12 SCD applied (from [facility]): Yes SCD contraindicated: other Pharmacological prophylaxis: other Pharm contraindication: other Lines/Catheters IV C[facility]ter Type ([facility] Central Line Central line still needed: Yes Urinary Cath still in place: Yes Reason Cath still needed: urinary retention Assessment/Plan Assessment/Plan -Anemia secondary to possible GI bleed. Dr. Gomes is asked to see patient in GI consultation. Transfuse as needed, monitor hemoglobin and hematocrit. -Bleeding gastric ulcers s/p hemostasis with placement of hemoclip during EGD by Dr Guallpa. -Septic shock secondary to urinary tract infection, continue antibiotics. Dr. Guzman is following in infection disease consultation. -Hypoxemic respiratory failure, resolving. Dr. Nam is following in p ulmonology consultation. -Acute kidney injury, resolving. Dr. Senior following in nephrology consultation. -Hypernatremia -Dementia -Multiple pressure ulcers -Protein calorie malnutrition Further recommendations based on clinical course. Plan of care discussed with Dr. Kiser. Result Diagram: 04/05/188 04/05/18 0448 Results 24hrs Laboratory Tests Test 04/05/18 04:48 White Blood Count 18.5 H Red Blood Count 3.39 L Hemoglobin 9.6 L Hematocrit 31.5 L Mean Corpuscular Volume 92.9 Mean Corpuscular Hemoglobin 28.3 L Mean Corpuscular Hemoglobin Concent 30.5 L Red Cell Distribution Width 17.0 H Platelet Count 142 Mean Platelet Volume 13.3 H Immature Granulocytes % 1.600 H Neutrophils % 83.1 H Lymphocytes % 9.1 L Monocytes % 3.6 Eosinophils % 2.4 Basophils % 0.2 Nucleated Red Blood Cells % 0.0 Immature Granulocytes # 0.290 H Neutrophils # 15.4 H Lymphocytes # 1.7 Monocytes # 0.7 Eosinophils # 0.4 Basophils # 0.0 Nucleated Red Blood Cells # 0.0 Sodium Level 153 H Potassium Level 3.3 L Chloride Level 128 H Carbon Dioxide Level 29 Anion Gap -4 L Blood Urea Nitrogen 41 H Creatinine 1.08 Est Glomerular Filtrat Rate mL/min Glucose Level 124 Calcium Level 7.4 L Subjective 24 Hr Interval Summary Free Text/Dictation Na 153- nEPHROLOGY FOLLOWS Exam/Review of Systems Vital Signs Vitals Vital Signs Date Temp Pulse Resp B/P (MAP) Pulse Ox O2 O2 Flow FiO2 Time Delivery Rate 04/05/18 87 24 112/52 97 13:15 (72) 04/05/18 98.4 12:00 04/05/18 Room Air 07:00 04/03/18 21 18:14 04/02/18 1.0 04:00 Intake and Output 04/04/18 04/04/18 04/05/18 1515:00 23:00 07:00 IntakeIntake Total 950 ml 979.250 ml 930.00 ml OutputOutput Total 545 ml 425 ml 350 ml BalanceBalance 405 ml 554.250 ml 580.00 ml Medications Medications Current Medications Ondansetron HCl (Zofran Inj) 4 mg Q6H PRN IV NAUSEA AND/OR VOMITING; Start 03/27/18 at 20:00 Acetaminophen (Tylenol Tab) 650 mg Q6H PRN PO PAIN LEVEL 1-3 OR FEVER; Start 03/27/18 at 20:00 Morphine Sulfate (morphine) 2 mg Q4H PRN IV PAIN LEVEL 7-10; Start 03/27/18 at 20:00 Collagenase (Santyl) 1 applic DAILY TOP Last administered on 04/05/18 08:57; Admin Dose 1 APPLIC; Start 03/31/18 at 09:00 Norepinephrine 16 mg/Dextrose 500 ml @ 1.88 mls/hr TITRATE IV Last a dministered on 04/04/18 14:21; Admin Dose 1.88 MLS/HR; Start 03/31/18 at 09:00 Mupirocin (Bactroban) 1 applic BID TOP Last administered on 04/05/18 08:55; Admin Dose 1 APPLIC; Start 03/31/18 at 11:00 Meropenem/Sodium Chloride 50 ml @ 100 mls/hr Q12H IVPB Last administered on 04/05/18 05:52; Admin Dose 100 MLS/HR; Start 03/31/18 at 17:00 Vancomycin HCl (Vanco Iv Per Pharmacy) VANCOMYCIN PER PHARMACY PER PROTOCOL XX ; Start 04/01/18 at 10:00 Dextrose 1,000 ml @ 50 mls/hr Q20H IV Last administered on 04/05/18 07:21; Admin Dose 50 MLS/HR; Start 04/02/18 at 12:30 Pantoprazole (Protonix Iv) 40 mg BID@06,18 IV Last administered on 04/05/18at 05:52; Admin Dose 40 MG; Start 04/02/18 at 18:00 Vancomycin HCl 750 mg/Dextrose/ Water 150 ml @ 75 mls/hr Q24H IVPB Last administered on 04/04/18at 13:30; Admin Dose 75 MLS/HR; Start 04/04/18 at 14:00 Midodrine (Proamatine) 10 mg Q8 PO ; Start 04/05/18 at 14:00 MICHAEL ARZATE Apr 05, 2018 13:46
[2018-04-05] MEDS: VANCOMYCIN 750 MG in DEXTROSE 5% 150 ML IVPB SCH (14:49)
--- NOTE | 2018-04-05 14:51 | CONS ---
Date/Time of Note Date/Time of Note DATE: 04/05/18 TIME: 14:49 Assessment/Plan Assessment/Plan Hospital Course Impression: 1. coffee ground emesis 2. acute post hemorrhagic anemia 3. melena 4. upper GI bleed 5. EGD 04/03/17: multiple gastric ulcer (). One of the GI is oozing of blood s/p hemostasis with placement of hemoclip. Recommendations: 1. no NSAIDS 2. f/u path results 3. transfuse PRN hgb less than 7 4. if melena recurs and requires pRBC, then will need to increase PPI from bid dosing to gtt dosing 5. if pt on blood thinner, ok to resume tomorrow if h/h stable Result Diagram: 04/05/188 04/05/188 Results 24hrs Laboratory Tests Test 04/05/18 04:48 White Blood Count 18.5 H Red Blood Count 3.39 L Hemoglobin 9.6 L Hematocrit 31.5 L Mean Corpuscular Volume 92.9 Mean Corpuscular Hemoglobin 28.3 L Mean Corpuscular Hemoglobin Concent 30.5 L Red Cell Distribution Width 17.0 H Platelet Count 142 Mean Platelet Volume 13.3 H Immature Granulocytes % 1.600 H Neutrophils % 83.1 H Lymphocytes % 9.1 L Monocytes % 3.6 Eosinophils % 2.4 Basophils % 0.2 Nucleated Red Blood Cells % 0.0 Immature Granulocytes # 0.290 H Neutrophils # 15.4 H Lymphocytes # 1.7 Monocytes # 0.7 Eosinophils # 0.4 Basophils # 0.0 Nucleated Red Blood Cells # 0.0 Sodium Level 153 H Potassium Level 3.3 L Chloride Level 128 H Carbon Dioxide Level 29 Anion Gap -4 L Blood Urea Nitrogen 41 H Creatinine 1.08 Est Glomerular Filtrat Rate mL/min Glucose Level 124 Calcium Level 7.4 L Consultation Date/Type/Reason Admit Date/Time Mar 27, 2018 at 20:08 Initial Consult Date 04/02/18 Type of Consult Gastroenterology Requesting Provider: DEENA BASILIO 24 HR Interval Summary Free Text/Dictation no n/v, h/h stable Exam/Review of Systems Vital Signs Vitals Vital Signs Date Temp Pulse Resp B/P (MAP) Pulse Ox O2 O2 Flow FiO2 Time Delivery Rate 04/05/18 87 24 112/52 97 13:15 (72) 04/05/18 98.4 12:00 04/05/18 Room Air 07:00 04/03/18 21 18:14 04/02/18 1.0 04:00 Intake and Output 04/04/18 04/04/18 04/05/18 1414:59 22:59 06:59 IntakeIntake Total 950 ml 975.500 ml 980.00 ml OutputOutput Total 520 ml 430 ml 350 ml BalanceBalance 430 ml 545.500 ml 630.00 ml Exam Psych: confusion Head: normocephalic, atraumatic Eyes: nl conjunctiva, EOMI, nl lids ENMT: nl external ears & nose, nl lips & teeth, nl nasal mucosa & septum Neck: supple, non-tender Respiratory: clear to auscultation, normal air movement Cardiovascular: regular rate and rhythm, nl pulses Gastrointestinal: soft, non-tender, bowel sounds Medications Medications Current Medications Ondansetron HCl (Zofran Inj) 4 mg Q6H PRN IV NAUSEA AND/OR VOMITING; Start 03/27/18 at 20:00 Acetaminophen (Tylenol Tab) 650 mg Q6H PRN PO PAIN LEVEL 1-3 OR FEVER; Start 03/27/18 at 20:00 Morphine Sulfate (morphine) 2 mg Q4H PRN IV PAIN LEVEL 7-10; Start 03/27/18 at 20:00 Collagenase (Santyl) 1 applic DAILY TOP Last administered on 04/05/18at 08:57; Admin Dose 1 APPLIC; Start 03/31/18 at 09:00 Norepinephrine 16 mg/Dextrose 500 ml @ 1.88 mls/hr TITRATE IV Last administered on 04/04/18 14:21; Admin Dose 1.88 MLS/HR; Start 03/31/18 at 09:00 Mupirocin (Bactroban) 1 applic BID TOP Last administered on 04/05/18 08:55; Admin Dose 1 APPLIC; Start 03/31/18 at 11:00 Meropenem/Sodium Chloride 50 ml @ 100 mls/hr Q12H IVPB Last administered on 04/05/18 05:52; Admin Dose 100 MLS/HR; Start 03/31/18 at 17:00 Vancomycin HCl (Vanco Iv Per Pharmacy) VANCOMYCIN PER PHARMACY PER PROTOCOL XX ; Start 04/01/18 at 10:00 Dextrose 1,000 ml @ 50 mls/hr Q20H IV Last administered on 04/05/18at 07:21; Admin Dose 50 MLS/HR; Start 04/02/18 at 12:30 Pantoprazole (Protonix Iv) 40 mg BID@06,18 IV Last administered on 04/05/18at 05:52; Admin Dose 40 MG; Start 04/02/18 at 18:00 Vancomycin HCl 750 mg/Dextrose/ Water 150 ml @ 75 mls/hr Q24H IVPB Last administered on 04/04/18at 13:30; Admin Dose 75 MLS/HR; Start 04/04/18 at 14:00 Midodrine (Proamatine) 10 mg Q8 PO ; Start 04/05/18 at 14:00 TAMIKO JOHNSON MD Apr 05, 2018 14:51
[2018-04-05] MEDS: MIDODRINE 5 MG TAB PO SCH ×2 (14:55→21:53)
[2018-04-05] MEDS: morphine 4 MG/ML VIAL IV PRN ×2 (17:58→21:59)
[2018-04-06] VITALS (58 sets, daily range): BP systolic 84–133; BP diastolic 33–66; PULSE 64–92; RESP 12–28
[2018-04-06] MEDS: MEROPENEM 500MG/50 ML (PMX) 50 ML IVPB SCH ×2 (05:30→16:36)
[2018-04-06] MEDS: MIDODRINE 5 MG TAB PO SCH ×3 (05:41→20:07)
[2018-04-06] MEDS: PANTOPRAZOLE 40 MG INJ IV SCH ×2 (05:41→18:20)
[2018-04-06] MEDS: MUPIROCIN 2% 22 GM OINT TOP SCH ×2 (08:32→20:06)
[2018-04-06] MEDS: COLLAGENASE 5 GM (UD JAR) TOP SCH (08:32)
[2018-04-06] MEDS: DEXTROSE 5% 1,000 ML IV SCH (10:00)
--- NOTE | 2018-04-06 11:09 | CONS ---
Date/Time of Note Date/Time of Note DATE: 04/06/18 TIME: 11:07 Assessment/Plan Assessment/Plan Hospital Course Impression: 1. coffee ground emesis: resolved 2. acute post hemorrhagic anemia: h/h stable 3. melena: resolved 4. upper GI bleed: resolved 5. EGD 04/03/17: multiple gastric ulcer (). One of the GI is oozing of blood s/p hemostasis with placement of hemoclip. Recommendations: 1. no NSAIDS 2. f/u path results 3. transfuse PRN hgb less than 7 4. if melena recurs and requires pRBC, then will need to increase PPI from bid dosing to gtt dosing 5. Dr. Gomes to take over GI care tomorrow and determine timing of resuming anticoagulation Result Diagram: 04/06/185 04/06/18 0415 Results 24hrs Laboratory Tests Test 04/06/18 04:15 White Blood Count 19.4 H Red Blood Count 3.04 L Hemoglobin 8.7 L Hematocrit 28.5 L Mean Corpuscular Volume 93.8 Mean Corpuscular Hemoglobin 28.6 L Mean Corpuscular Hemoglobin Concent 30.5 L Red Cell Distribution Width 17.2 H Platelet Count 135 L Mean Platelet Volume 13.7 H Immature Granulocytes % 1.300 H Neutrophils % 84.1 H Segmented Neutrophils % (Manual) 87 H Band Neutrophils % (Manual) 2 Lymphocytes % 8.4 L Lymphocytes % (Manual) 8 L Monocytes % 3.8 Monocytes % (Manual) 1 Eosinophils % 2.3 Eosinophils % (Manual) 2 Basophils % 0.1 Nucleated Red Blood Cells % 0.0 Immature Granulocytes # 0.250 H Neutrophils # 16.3 H Neutrophils # (Manual) 16.9 H Band Neutrophils # 0.3 Lymphocytes (Manual) 1.5 Lymphocytes # 1.6 Monocytes # 0.7 Monocytes # (Manual) 0.1 L Eosinophils # 0.4 Basophils # 0.0 Nucleated Red Blood Cells # 0.0 Platelet Estimate DECREASED Giant Platelets 6 H Polychromasia 2+ Poikilocytosis 1+ Anisocytosis 1+ Microcytosis 1+ Sodium Level 149 H Potassium Level 3.8 Chloride Level 123 H Carbon Dioxide Level 28 Anion Gap 2 L Blood Urea Nitrogen 37 H Creatinine 0.99 Est Glomerular Filtrat Rate mL/min Glucose Level 126 Calcium Level 7.3 L Consultation Date/Type/Reason Admit Date/Time Mar 27, 2018 at 20:08 Initial Consult Date 04/02/18 Type of Consult Gastroenterology Requesting Provider: DEENA BASILIO 24 HR Interval Summary Free Text/Dictation no n/v, no melena Exam/Review of Systems Vital Signs Vitals Vital Signs Date Temp Pulse Resp B/P (MAP) Pulse Ox O2 O2 Flow FiO2 Time Delivery Rate 04/06/18 67 21 98/42 (60) 96 Room Air 09:45 04/06/18 97.8 08:00 04/03/18 21 18:14 Intake and Output 04/05/18 04/05/18 04/06/18 1515:00 23:00 07:00 IntakeIntake Total 915.00 ml 1003.76 ml 1131.95 ml OutputOutput Total 385 ml 320 ml 280 ml BalanceBalance 530.00 ml 683.76 ml 851.95 ml Exam Constitutional: frail Psych: confusion Head: normocephalic, atraumatic Eyes: nl conjunctiva, EOMI, nl lids ENMT: nl external ears & nose, nl lips & teeth, nl nasal mucosa & septum Neck: supple, non-tender Respiratory: clear to auscultation, normal air movement Cardiovascular: regular rate and rhythm, nl pulses Gastrointestinal: soft, non-tender, bowel sounds Medications Medications Current Medications Ondansetron HCl (Zofran Inj) 4 mg Q6H PRN IV NAUSEA AND/OR VOMITING; Start 03/27/18 at 20:00 Acetaminophen (Tylenol Tab) 650 mg Q6H PRN PO PAIN LEVEL 1-3 OR FEVER; Start 03/27/18 at 20:00 Collagenase (Santyl) 1 applic DAILY TOP Last administered on 04/06/18 08:32; Admin Dose 1 APPLIC; Start 03/31/18 at 09:00 Norepinephrine 16 mg/Dextrose 500 ml @ 1.88 mls/hr TITRATE IV Last administered on 04/04/18 14:21; Admin Dose 1.88 MLS/HR; Start 03/31/18 at 09:00 Mupirocin (Bactroban) 1 applic BID TOP Last administered on 04/06/18 08:32; Admin Dose 1 APPLIC; Start 03/31/18 at 11:00 Meropenem/Sodium Chloride 50 ml @ 100 mls/hr Q12H IVPB Last administered on 04/06/18at 05:30; Admin Dose 100 MLS/HR; Start 03/31/18 at 17:00 Vancomycin HCl (Vanco Iv Per Pharmacy) VANCOMYCIN PER PHARMACY PER PROTOCOL XX ; Start 04/01/18 at 10:00 Dextrose 1,000 ml @ 50 mls/hr Q20H IV Last administered on 04/05/18at 07:21; Admin Dose 50 MLS/HR; Start 04/02/18 at 12:30 Pantoprazole (Protonix Iv) 40 mg BID@06,18 IV Last administered on 04/06/18at 05:41; Admin Dose 40 MG; Start 04/02/18 at 18:00 Vancomycin HCl 750 mg/Dextrose/ Water 150 ml @ 75 mls/hr Q24H IVPB Last administered on 04/05/18at 14:49; Admin Dose 75 MLS/HR; Start 04/04/18 at 14:00 Midodrine (Proamatine) 10 mg Q8 PO Last administered on 04/06/18at 05:41; Admin Dose 10 MG; Start 04/05/18 at 14:00 Morphine Sulfate (morphine) 2 mg Q4H PRN IV PAIN LEVEL 7-10 Last administered on 04/05/18at 21:59; Admin Dose 2 MG; Start 04/05/18 at 17:22 Miscellaneous Information (*Rx Drug Level Order Reminder*) VANCO TR AT 1,300 ONCE ONCE XX ; Start 04/07/18 at 13:00; Stop 04/07/18 at 13:01 TAMIKO JOHNSON MD Apr 06, 2018 11:09
--- NOTE | 2018-04-06 11:09 | CONS ---
Date/Time of Note Date/Time of Note DATE: 04/06/18 TIME: 11:06 Consult Date/Type/Reason Admit Date/Time Mar 27, 2018 at 20:08 Initial Consult Date 03/29/18 Type of Consultation: Pulm/CCM Requesting Provider: DEENA BASILIO Subjective Titrated off levophed gtt. Very somnolent though responsive to commands. Objective Vital Signs Date Temp Pulse Resp B/P (MAP) Pulse Ox O2 O2 Flow FiO2 Time Delivery Rate 04/06/18 67 21 98/42 (60) 96 Room Air 09:45 04/06/18 97.8 08:00 04/03/18 21 18:14 Intake and Output 04/05/18 04/05/18 04/06/18 1515:00 23:00 07:00 IntakeIntake Total 915.00 ml 1003.76 ml 1131.95 ml OutputOutput Total 385 ml 320 ml 280 ml BalanceBalance 530.00 ml 683.76 ml 851.95 ml Exam HEENT: Neck supple; no JVD; no LAD CVS: RRR, S1 and S2 CHEST: Clear ABD: Soft, NT, + BS EXT: No c/c/e NEURO: A&O x 2; moving all extremities Results/Medications Result Diagram: 04/06/1841404/06/18414 Results 24 hrs Laboratory Tests Test 04/06/18 04:15 White Blood Count 19.4 H Red Blood Count 3.04 L Hemoglobin 8.7 L Hematocrit 28.5 L Mean Corpuscular Volume 93.8 Mean Corpuscular Hemoglobin 28.6 L Mean Corpuscular Hemoglobin Concent 30.5 L Red Cell Distribution Width 17.2 H Platelet Count 135 L Mean Platelet Volume 13.7 H Immature Granulocytes % 1.300 H Neutrophils % 84.1 H Segmented Neutrophils % (Manual) 87 H Band Neutrophils % (Manual) 2 Lymphocytes % 8.4 L Lymphocytes % (Manual) 8 L Monocytes % 3.8 Monocytes % (Manual) 1 Eosinophils % 2.3 Eosinophils % (Manual) 2 Basophils % 0.1 Nucleated Red Blood Cells % 0.0 Immature Granulocytes # 0.250 H Neutrophils # 16.3 H Neutrophils # (Manual) 16.9 H Band Neutrophils # 0.3 Lymphocytes (Manual) 1.5 Lymphocytes # 1.6 Monocytes # 0.7 Monocytes # (Manual) 0.1 L Eosinophils # 0.4 Basophils # 0.0 Nucleated Red Blood Cells # 0.0 Platelet Estimate DECREASED Giant Platelets 6 H Polychromasia 2+ Poikilocytosis 1+ Anisocytosis 1+ Microcytosis 1+ Sodium Level 149 H Potassium Level 3.8 Chloride Level 123 H Carbon Dioxide Level 28 Anion Gap 2 L Blood Urea Nitrogen 37 H Creatinine 0.99 Est Glomerular Filtrat Rate mL/min Glucose Level 126 Calcium Level 7.3 L Medications Current Medications Ondansetron HCl (Zofran Inj) 4 mg Q6H PRN IV NAUSEA AND/OR VOMITING; Start 03/27/18 at 20:00 Acetaminophen (Tylenol Tab) 650 mg Q6H PRN PO PAIN LEVEL 1-3 OR FEVER; Start 03/27/18 at 20:00 Collagenase (Santyl) 1 applic DAILY TOP Last administered on 04/06/18 08:32; Admin Dose 1 APPLIC; Start 03/31/18 at 09:00 Norepinephrine 16 mg/Dextrose 500 ml @ 1.88 mls/hr TITRATE IV Last administered on 04/04/18 14:21; Admin Dose 1.88 MLS/HR; Start 03/31/18 at 09:00 Mupirocin (Bactroban) 1 applic BID TOP Last administered on 04/06/18 08:32; Admin Dose 1 APPLIC; Start 03/31/18 at 11:00 Meropenem/Sodium Chloride 50 ml @ 100 mls/hr Q12H IVPB Last administered on 04/06/18 05:30; Admin Dose 100 MLS/HR; Start 03/31/18 at 17:00 Vancomycin HCl (Vanco Iv Per Pharmacy) VANCOMYCIN PER PHARMACY PER PROTOCOL XX ; Start 04/01/18 at 10:00 Dextrose 1,000 ml @ 50 mls/hr Q20H IV Last administered on 04/05/18 07:21; Admin Dose 50 MLS/HR; Start 04/02/18 at 12:30 Pantoprazole (Protonix Iv) 40 mg BID@06,18 IV Last administered on 04/06/18 05:41; Admin Dose 40 MG; Start 04/02/18 at 18:00 Vancomycin HCl 750 mg/Dextrose/ Water 150 ml @ 75 mls/hr Q24H IVPB Last administered on 04/05/18 14:49; Admin Dose 75 MLS/HR; Start 04/04/18 at 14:00 Midodrine (Proamatine) 10 mg Q8 PO Last administered on 04/06/18at 05:41; Admin Dose 10 MG; Start 04/05/18 at 14:00 Morphine Sulfate (morphine) 2 mg Q4H PRN IV PAIN LEVEL 7-10 Last administered on 04/05/18at 21:59; Admin Dose 2 MG; Start 04/05/18 at 17:22 Miscellaneous Information (*Rx Drug Level Order Reminder*) VANCO TR AT 1,300 ONCE ONCE XX ; Start 04/07/18 at 13:00; Stop 04/07/18 at 13:01 Assessment/Plan Chief Complaint/Hosp Course Briefly, this is a 87-year-old gentleman with history of dementia, functional quadriplegia hypertension, BPH history of right humerus fracture complicated by DVT s/p IVC filter, E. coli urinary tract infection, and multiple pressure ulcers admitted with AMS due to urosepsis with associated FLORES and hypoxemic respiratory failure. CT abdomen also notable for possible PSBO. Additional Assessment/Plan IMP: 1. s/p Respiratory Failure--with hypoxemic component. Tachypnea likely due to metabolic acidosis 2/2 FLORES respiratory status improved 2. Urinary tract infection with septic shock--improved. 3. FLORES--likely pre-renal vs.ATN 4. Metabolic Acidosis 2/2 #3--improved 5. AMS--Dementia and uremia 6. HyperNa+ 7. s/p GI bleed RECS: 1. Continue midodrine 10 mg Q 8 2. Titrate off levophed gtt 3. Aspiration precautions, free water 4. Follow H/H 5. Aspiration precautions 6. Am CXR 40 min cc time case d/w staff JOSE PORTILLO MD Apr 06, 2018 11:09
[2018-04-06] MEDS: VANCOMYCIN 750 MG in DEXTROSE 5% 150 ML IVPB SCH (13:17)
--- NOTE | 2018-04-06 14:04 | PN ---
Date/Time of Note Date/Time of Note DATE: 04/06/18 TIME: 14:03 Assessment/Plan VTE Prophylaxis Risk score (from [facility])>0 risk: 14 SCD applied (from [facility]): Yes SCD contraindicated: other Pharmacological prophylaxis: other Pharm contraindication: other Lines/Catheters IV C[facility]ter Type (from [facility]): Central Line Central line still needed: Yes Urinary Cath still in place: Yes Reason Cath still needed: urinary retention Assessment/Plan Assessment/Plan -Anemia secondary to possible GI bleed. Dr. Gomes is asked to see patient in GI consultation. Transfuse as needed, monitor hemoglobin and hematocrit. -Bleeding gastric ulcers s/p hemostasis with placement of hemoclip during EGD by Dr Guallpa. -Septic shock secondary to urinary tract infection, continue antibiotics. Dr. Guzman is following in infection disease consultation. -Hypoxemic respiratory failure, resolving. Dr. Nam is following in p ulmonology consultation. -Acute kidney injury, resolving. Dr. Senior following in nephrology consultation. -Hypernatremia -Dementia -Multiple pressure ulcers -Protein calorie malnutrition Total critical care time spent is 35 mins.Further recommendations based on clinical course. Plan of care discussed with Dr. Kiser. Result Diagram: 04/06/18 0415 04/06/18 0415 Results 24hrs Laboratory Tests Test 04/06/18 04:15 White Blood Count 19.4 H Red Blood Count 3.04 L Hemoglobin 8.7 L Hematocrit 28.5 L Mean Corpuscular Volume 93.8 Mean Corpuscular Hemoglobin 28.6 L Mean Corpuscular Hemoglobin Concent 30.5 L Red Cell Distribution Width 17.2 H Platelet Count 135 L Mean Platelet Volume 13.7 H Immature Granulocytes % 1.300 H Neutrophils % 84.1 H Segmented Neutrophils % (Manual) 87 H Band Neutrophils % (Manual) 2 Lymphocytes % 8.4 L Lymphocytes % (Manual) 8 L Monocytes % 3.8 Monocytes % (Manual) 1 Eosinophils % 2.3 Eosinophils % (Manual) 2 Basophils % 0.1 Nucleated Red Blood Cells % 0.0 Immature Granulocytes # 0.250 H Neutrophils # 16.3 H Neutrophils # (Manual) 16.9 H Band Neutrophils # 0.3 Lymphocytes (Manual) 1.5 Lymphocytes # 1.6 Monocytes # 0.7 Monocytes # (Manual) 0.1 L Eosinophils # 0.4 Basophils # 0.0 Nucleated Red Blood Cells # 0.0 Platelet Estimate DECREASED Giant Platelets 6 H Polychromasia 2+ Poikilocytosis 1+ Anisocytosis 1+ Microcytosis 1+ Sodium Level 149 H Potassium Level 3.8 Chloride Level 123 H Carbon Dioxide Level 28 Anion Gap 2 L Blood Urea Nitrogen 37 H Creatinine 0.99 Est Glomerular Filtrat Rate mL/min Glucose Level 126 Calcium Level 7.3 L Exam/Review of Systems Vital Signs Vitals Vital Signs Date Temp Pulse Resp B/P (MAP) Pulse Ox O2 O2 Flow FiO2 Time Delivery Rate 04/06/18 75 22 100/38 98 Room Air 12:30 (58) 04/06/18 97.5 12:00 04/03/18 21 18:14 Intake and Output 04/05/18 04/05/18 04/06/18 1515:00 23:00 07:00 IntakeIntake Total 915.00 ml 1003.76 ml 1131.95 ml OutputOutput Total 385 ml 320 ml 280 ml BalanceBalance 530.00 ml 683.76 ml 851.95 ml Medications Medications Current Medications Ondansetron HCl (Zofran Inj) 4 mg Q6H PRN IV NAUSEA AND/OR VOMITING; Start 03/27/18 at 20:00 Acetaminophen (Tylenol Tab) 650 mg Q6H PRN PO PAIN LEVEL 1-3 OR FEVER; Start 03/27/18 at 20:00 Collagenase (Santyl) 1 applic DAILY TOP Last administered on 04/06/18 08:32; Admin Dose 1 APPLIC; Start 03/31/18 at 09:00 Norepinephrine 16 mg/Dextrose 500 ml @ 1.88 mls/hr TITRATE IV Last administered on 04/04/18 14:21; Admin Dose 1.88 MLS/HR; Start 03/31/18 at 09:00 Mupirocin (Bactroban) 1 applic BID TOP Last administered on 04/06/18 08:32; Admin Dose 1 APPLIC; Start 03/31/18 at 11:00 Meropenem/Sodium Chloride 50 ml @ 100 mls/hr Q12H IVPB Last administered on 04/06/18 05:30; Admin Dose 100 MLS/HR; Start 03/31/18 at 17:00 Vancomycin HCl (Vanco Iv Per Pharmacy) VANCOMYCIN PER PHARMACY PER PROTOCOL XX ; Start 04/01/18 at 10:00 Dextrose 1,000 ml @ 50 mls/hr Q20H IV Last administered on 04/06/18at 10:00; Admin Dose 50 MLS/HR; Start 04/02/18 at 12:30 Pantoprazole (Protonix Iv) 40 mg BID@06,18 IV Last administered on 04/06/18at 05:41; Admin Dose 40 MG; Start 04/02/18 at 18:00 Vancomycin HCl 750 mg/Dextrose/ Water 150 ml @ 75 mls/hr Q24H IVPB Last administered on 04/06/18at 13:17; Admin Dose 75 MLS/HR; Start 04/04/18 at 14:00 Midodrine (Proamatine) 10 mg Q8 PO Last administered on 04/06/18at 13:17; Admin Dose 10 MG; Start 04/05/18 at 14:00 Morphine Sulfate (morphine) 2 mg Q4H PRN IV PAIN LEVEL 7-10 Last administered on 04/05/18at 21:59; Admin Dose 2 MG; Start 04/05/18 at 17:22 Miscellaneous Information (*Rx Drug Level Order Reminder*) VANCO TR AT 1,300 ONCE ONCE XX ; Start 04/07/18 at 13:00; Stop 04/07/18 at 13:01 MICHAEL ARZATE Apr 06, 2018 14:04
--- NOTE | 2018-04-06 14:37 | CONS ---
Date/Time of Note Date/Time of Note DATE: 04/06/18 TIME: 14:36 Assessment/Plan Assessment/Plan Hospital Course No acute events patient is awake looks comfortable, tolerates tube feeding, no fevers overnight WBC 19.4 H&H 8.7 and 28.5 platelets 135 neutrophils 87 BUN 37 creatinine 0.99 Indwelling: NGT, [place] TLC Microbiology: Urine culture grew E. coli ESBL Chest x-ray revealed bilateral pleural effusions and questionable airspace disease Antimicrobials: Vancomycin meropenem Physical examination: Well-developed chronically ill-appearing wasted elderly man who is in no distress. Head atraumatic normocephalic sclera nonicteric. Neck is supple chest rise symmetrical breath sounds diminished bases. Heart: S1-S2 abdomen distended tender on palpation extremities without cyanosis Assessment: 1. Persistent leukocytosis, status post septic shock 2. GI bleeding===>status post EGD with Hemoclip placement 3. E. coli ESBL UTI 4. MRSA nares colonization 5. Dysphagia 6. Dementia Plan: Patient is clinically stable, we will repeat cultures and chest x-ray, continue present, aspiration precautions Result Diagram: 04/06/18 0415 04/06/18 0415 Results 24hrs Laboratory Tests Test 04/06/18 04:15 White Blood Count 19.4 H Red Blood Count 3.04 L Hemoglobin 8.7 L Hematocrit 28.5 L Mean Corpuscular Volume 93.8 Mean Corpuscular Hemoglobin 28.6 L Mean Corpuscular Hemoglobin Concent 30.5 L Red Cell Distribution Width 17.2 H Platelet Count 135 L Mean Platelet Volume 13.7 H Immature Granulocytes % 1.300 H Neutrophils % 84.1 H Segmented Neutrophils % (Manual) 87 H Band Neutrophils % (Manual) 2 Lymphocytes % 8.4 L Lymphocytes % (Manual) 8 L Monocytes % 3.8 Monocytes % (Manual) 1 Eosinophils % 2.3 Eosinophils % (Manual) 2 Basophils % 0.1 Nucleated Red Blood Cells % 0.0 Immature Granulocytes # 0.250 H Neutrophils # 16.3 H Neutrophils # (Manual) 16.9 H Band Neutrophils # 0.3 Lymphocytes (Manual) 1.5 Lymphocytes # 1.6 Monocytes # 0.7 Monocytes # (Manual) 0.1 L Eosinophils # 0.4 Basophils # 0.0 Nucleated Red Blood Cells # 0.0 Platelet Estimate DECREASED Giant Platelets 6 H Polychromasia 2+ Poikilocytosis 1+ Anisocytosis 1+ Microcytosis 1+ Sodium Level 149 H Potassium Level 3.8 Chloride Level 123 H Carbon Dioxide Level 28 Anion Gap 2 L Blood Urea Nitrogen 37 H Creatinine 0.99 Est Glomerular Filtrat Rate mL/min Glucose Level 126 Calcium Level 7.3 L Consultation Date/Type/Reason Admit Date/Time Mar 27, 2018 at 20:08 Initial Consult Date 04/02/18 Type of Consult ID Requesting Provider: DEENA BASILIO Exam/Review of Systems Vital Signs Vitals Vital Signs Date Temp Pulse Resp B/P (MAP) Pulse Ox O2 O2 Flow FiO2 Time Delivery Rate 04/06/18 75 25 97/38 (57) 97 Room Air 14:00 04/06/18 97.5 12:00 04/03/18 21 18:14 Intake and Output 04/05/18 04/05/18 04/06/18 1515:00 23:00 07:00 IntakeIntake Total 915.00 ml 1003.76 ml 1131.95 ml OutputOutput Total 385 ml 320 ml 280 ml BalanceBalance 530.00 ml 683.76 ml 851.95 ml Medications Medications Current Medications Ondansetron HCl (Zofran Inj) 4 mg Q6H PRN IV NAUSEA AND/OR VOMITING; Start 03/27/18 at 20:00 Acetaminophen (Tylenol Tab) 650 mg Q6H PRN PO PAIN LEVEL 1-3 OR FEVER; Start 03/27/18 at 20:00 Collagenase (Santyl) 1 applic DAILY TOP Last administered on 04/06/18 08:32; Admin Dose 1 APPLIC; Start 03/31/18 at 09:00 Norepinephrine 16 mg/Dextrose 500 ml @ 1.88 mls/hr TITRATE IV Last administered on 04/04/18 14:21; Admin Dose 1.88 MLS/HR; Start 03/31/18 at 09:00 Mupirocin (Bactroban) 1 applic BID TOP Last administered on 04/06/18 08:32; Admin Dose 1 APPLIC; Start 03/31/18 at 11:00 Meropenem/Sodium Chloride 50 ml @ 100 mls/hr Q12H IVPB Last administered on 04/06/18 05:30; Admin Dose 100 MLS/HR; Start 03/31/18 at 17:00 Vancomycin HCl (Vanco Iv Per Pharmacy) VANCOMYCIN PER PHARMACY PER PROTOCOL XX ; Start 04/01/18 at 10:00 Dextrose 1,000 ml @ 50 mls/hr Q20H IV Last administered on 04/06/18at 10:00; Admin Dose 50 MLS/HR; Start 04/02/18 at 12:30 Pantoprazole (Protonix Iv) 40 mg BID@06,18 IV Last administered on 04/06/18at 05:41; Admin Dose 40 MG; Start 04/02/18 at 18:00 Vancomycin HCl 750 mg/Dextrose/ Water 150 ml @ 75 mls/hr Q24H IVPB Last administered on 04/06/18at 13:17; Admin Dose 75 MLS/HR; Start 04/04/18 at 14:00 Midodrine (Proamatine) 10 mg Q8 PO Last administered on 04/06/18at 13:17; Admin Dose 10 MG; Start 04/05/18 at 14:00 Morphine Sulfate (morphine) 2 mg Q4H PRN IV PAIN LEVEL 7-10 Last administered on 04/05/18at 21:59; Admin Dose 2 MG; Start 04/05/18 at 17:22 Miscellaneous Information (*Rx Drug Level Order Reminder*) VANCO TR AT 1,300 ONCE ONCE XX ; Start 04/07/18 at 13:00; Stop 04/07/18 at 13:01 DAVONTE MCMAHAN NP Apr 06, 2018 14:37
--- NOTE | 2018-04-06 15:33 | CONS ---
Date/Time of Note Date/Time of Note DATE: 04/06/18 TIME: 15:33 Assessment/Plan Assessment/Plan Assessment/Plan 1. Acute kidney injury on CKD due to ATN + prerenal azotemia 2. acute blood loss anemia- 3. acute hyperkalemia- now resolved 4. acute hypoxemic resp failure 5. Sepsis due to acute UTI 6. Severe metabolic acidosis due to FLORES 7. Hypernatremia 8. Upper GI bleeding Plan: BUN/Cr 37/0.99, Na 149- Continue IVF d5W at 50 cc/hr , Midodrine 10mg PO Q 8 hr, Titrate levophed to off Renal US showed No evidence of hydronephrosis or mass, Nonobstructing intrarenal calculi are seen in the mid right kidney measuring 4 mm in 7 mm. 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.8 x 6.7 x 8.3 cm no acute indication for HD at this time, will continue to monitor renal function GI has been consulted for upper GI bleeding , Prn Blood Transfusion will follow up Result Diagram: 04/06/18 0415 04/06/18 0415 Results 24hrs Laboratory Tests Test 04/06/18 04:15 White Blood Count 19.4 H Red Blood Count 3.04 L Hemoglobin 8.7 L Hematocrit 28.5 L Mean Corpuscular Volume 93.8 Mean Corpuscular Hemoglobin 28.6 L Mean Corpuscular Hemoglobin Concent 30.5 L Red Cell Distribution Width 17.2 H Platelet Count 135 L Mean Platelet Volume 13.7 H Immature Granulocytes % 1.300 H Neutrophils % 84.1 H Segmented Neutrophils % (Manual) 87 H Band Neutrophils % (Manual) 2 Lymphocytes % 8.4 L Lymphocytes % (Manual) 8 L Monocytes % 3.8 Monocytes % (Manual) 1 Eosinophils % 2.3 Eosinophils % (Manual) 2 Basophils % 0.1 Nucleated Red Blood Cells % 0.0 Immature Granulocytes # 0.250 H Neutrophils # 16.3 H Neutrophils # (Manual) 16.9 H Band Neutrophils # 0.3 Lymphocytes (Manual) 1.5 Lymphocytes # 1.6 Monocytes # 0.7 Monocytes # (Manual) 0.1 L Eosinophils # 0.4 Basophils # 0.0 Nucleated Red Blood Cells # 0.0 Platelet Estimate DECREASED Giant Platelets 6 H Polychromasia 2+ Poikilocytosis 1+ Anisocytosis 1+ Microcytosis 1+ Sodium Level 149 H Potassium Level 3.8 Chloride Level 123 H Carbon Dioxide Level 28 Anion Gap 2 L Blood Urea Nitrogen 37 H Creatinine 0.99 Est Glomerular Filtrat Rate mL/min Glucose Level 126 Calcium Level 7.3 L Consultation Date/Type/Reason Admit Date/Time Mar 27, 2018 at 20:08 Initial Consult Date 03/31/18 Type of Consult NEPHROLOGY Requesting Provider: DEENA BASILIO 24 HR Interval Summary Free Text/Dictation still on low dose levophed, Na, BUN/cr Improving, BP stable Exam/Review of Systems Vital Signs Vitals Vital Signs Date Temp Pulse Resp B/P (MAP) Pulse Ox O2 O2 Flow FiO2 Time Delivery Rate 04/06/18 75 25 97/38 (57) 97 Room Air 14:00 04/06/18 97.5 12:00 04/03/18 21 18:14 Intake and Output 04/05/18 04/05/18 04/06/18 1515:00 23:00 07:00 IntakeIntake Total 915.00 ml 1003.76 ml 1131.95 ml OutputOutput Total 385 ml 320 ml 280 ml BalanceBalance 530.00 ml 683.76 ml 851.95 ml Exam GENERAL: no acute distress, alert, oriented x 2 NECK: Supple. No JVD or lymphadenopathy. CARDIAC EXAM: S1, S2. No added sounds or murmurs. CHEST: Diminished air entry bilaterally with few rales ABDOMEN: Soft, nontender. No guarding or rebound. EXTREMITIES: No cyanosis, clubbing or edema. NEUROLOGIC: Generalized weakness Medications Medications Current Medications Ondansetron HCl (Zofran Inj) 4 mg Q6H PRN IV NAUSEA AND/OR VOMITING; Start 03/27/18 at 20:00 Acetaminophen (Tylenol Tab) 650 mg Q6H PRN PO PAIN LEVEL 1-3 OR FEVER; Start 03/27/18 at 20:00 Collagenase (Santyl) 1 applic DAILY TOP Last administered on 04/06/18at 08:32; Admin Dose 1 APPLIC; Start 03/31/18 at 09:00 Norepinephrine 16 mg/Dextrose 500 ml @ 1.88 mls/hr TITRATE IV Last admini stered on 04/04/18at 14:21; Admin Dose 1.88 MLS/HR; Start 03/31/18 at 09:00 Mupirocin (Bactroban) 1 applic BID TOP Last administered on 04/06/18at 08:32; Admin Dose 1 APPLIC; Start 03/31/18 at 11:00 Meropenem/Sodium Chloride 50 ml @ 100 mls/hr Q12H IVPB Last administered on 04/06/18at 05:30; Admin Dose 100 MLS/HR; Start 03/31/18 at 17:00 Vancomycin HCl (Vanco Iv Per Pharmacy) VANCOMYCIN PER PHARMACY PER PROTOCOL XX ; Start 04/01/18 at 10:00 Dextrose 1,000 ml @ 50 mls/hr Q20H IV Last administered on 04/06/18at 10:00; Admin Dose 50 MLS/HR; Start 04/02/18 at 12:30 Pantoprazole (Protonix Iv) 40 mg BID@06,18 IV Last administered on 04/06/18at 05:41; Admin Dose 40 MG; Start 04/02/18 at 18:00 Vancomycin HCl 750 mg/Dextrose/ Water 150 ml @ 75 mls/hr Q24H IVPB Last administered on 04/06/18at 13:17; Admin Dose 75 MLS/HR; Start 04/04/18 at 14:00 Midodrine (Proamatine) 10 mg Q8 PO Last administered on 04/06/18at 13:17; Admin Dose 10 MG; Start 04/05/18 at 14:00 Morphine Sulfate (morphine) 2 mg Q4H PRN IV PAIN LEVEL 7-10 Last administered on 04/05/18at 21:59; Admin Dose 2 MG; Start 04/05/18 at 17:22 Miscellaneous Information (*Rx Drug Level Order Reminder*) VANCO TR AT 1,300 ONCE ONCE XX ; Start 04/07/18 at 13:00; Stop 04/07/18 at 13:01 STEVEN BLANCO MD Apr 06, 2018 15:33
[2018-04-07] VITALS (12 sets, daily range): BP systolic 101–124; BP diastolic 53–75; PULSE 70–88; RESP 18–19
[2018-04-07] MEDS ORDERED: VITAMIN A & D 5 GM OINT PACKET TOP ONE (02:10)
[2018-04-07] MEDS: PANTOPRAZOLE 40 MG INJ IV SCH ×2 (06:26→17:47)
[2018-04-07] MEDS: MIDODRINE 5 MG TAB PO SCH ×3 (06:26→21:29)
[2018-04-07] MEDS: MEROPENEM 500MG/50 ML (PMX) 50 ML IVPB SCH ×2 (06:26→17:47)
--- NOTE | 2018-04-07 07:20 | PN ---
Date/Time of Note Date/Time of Note DATE: 04/07/18 TIME: 07:15 Assessment/Plan VTE Prophylaxis Risk score (from [facility])>0 risk: 9 SCD applied (from [facility]): Yes Pharmacological prophylaxis: NA/contraindicated Pharm contraindication: bleeding Lines/Catheters IV Catheter Type (from [facility]): Central Line Central line still needed: Yes Urinary Cath still in place: Yes Reason Cath still needed: urinary retention Assessment/Plan Hospital Course 88 yo male presented with urosepsis and respiratory failure and coffee ground emesis 1. Upper GI bleed manifested through coffee ground emesis and melena -s/p EGD -resolved 2. Gastric ulcers, etiology of bled 3. Hiatal hernia 4. Anemia secondary to gastric ulcer bleeding Plan: No NSAIDs Monitor HH and transfuse as necessary Monitor for acute GI bleeding Continue with PPI BID Pt examined and plan of care discussed with Dr. Gomes Result Diagram: 04/06/18 0415 04/07/18 0542 Results 24hrs Laboratory Tests Test 04/07/18 05:42 White Blood Count Pending Red Blood Count Pending Hemoglobin Pending Hematocrit Pending Mean Corpuscular Volume Pending Mean Corpuscular Hemoglobin Pending Mean Corpuscular Hemoglobin Concent Pending Red Cell Distribution Width Pending Platelet Count Pending Mean Platelet Volume Pending Sodium Level 146 H Potassium Level 3.8 Chloride Level 119 H Carbon Dioxide Level 26 Anion Gap 1 L Blood Urea Nitrogen 35 H Creatinine 0.93 Est Glomerular Filtrat Rate mL/min Glucose Level 119 Calcium Level 7.1 L Subjective 24 Hr Interval Summary Free Text/Dictation Tolerating tube feeds, No N/V, No melena or any evidence of GI bleeding per RN. Exam/Review of Systems Vital Signs Vitals Vital Signs Date Temp Pulse Resp B/P (MAP) Pulse Ox O2 O2 Flow FiO2 Time Delivery Rate 04/07/18 98.1 88 19 105/53 96 04:42 (70) 04/06/18 Room Air 18:00 04/03/18 21 18:14 Intake and Output 04/06/18 04/06/18 04/07/18 1515:00 23:00 07:00 IntakeIntake Total 1100.75 ml 600 ml 750 ml OutputOutput Total 180 ml 120 ml 1000 ml BalanceBalance 920.75 ml 480 ml -250 ml Exam Constitutional: alert Psych: no complaints Head: normocephalic, other (scab on nose) Eyes: nl sclera, PERRL ENMT: mucosa pink and moist Respiratory: other (non labored, symmetrical chest rise) Cardiovascular: regular rate and rhythm Gastrointestinal: soft, non-tender Musculoskeletal: muscle weakness Extremities: normal pulses Neurological: other (alert, pt tracks but does not answer my questions) Medications Medications Current Medications Ondansetron HCl (Zofran Inj) 4 mg Q6H PRN IV NAUSEA AND/OR VOMITING; Start 03/27/18 at 20:00 Acetaminophen (Tylenol Tab) 650 mg Q6H PRN PO PAIN LEVEL 1-3 OR FEVER; Start 03/27/18 at 20:00 Collagenase (Santyl) 1 applic DAILY TOP Last administered on 04/06/18 08:32; Admin Dose 1 APPLIC; Start 03/31/18 at 09:00 Mupirocin (Bactroban) 1 applic BID TOP Last administered on 04/06/18 20:06; Admin Dose 1 APPLIC; Start 03/31/18 at 11:00 Meropenem/Sodium Chloride 50 ml @ 100 mls/hr Q12H IVPB Last administered on 04/07/18 06:26; Admin Dose 100 MLS/HR; Start 03/31/18 at 17:00 Vancomycin HCl (Vanco Iv Per Pharmacy) VANCOMYCIN PER PHARMACY PER PROTOCOL XX ; Start 04/01/18 at 10:00 Dextrose 1,000 ml @ 50 mls/hr Q20H IV Last administered on 04/06/18 10:00; Admin Dose 50 MLS/HR; Start 04/02/18 at 12:30 Pantoprazole (Protonix Iv) 40 mg BID@06,18 IV Last administered on 04/07/18 06:26; Admin Dose 40 MG; Start 04/02/18 at 18:00 Vancomycin HCl 750 mg/Dextrose/ Water 150 ml @ 75 mls/hr Q24H IVPB Last administered on 04/06/18 13:17; Admin Dose 75 MLS/HR; Start 04/04/18 at 14:00 Midodrine (Proamatine) 10 mg Q8 PO Last administered on 04/07/18 06:26; Admin Dose 10 MG; Start 04/05/18 at 14:00 Morphine Sulfate (morphine) 2 mg Q4H PRN IV PAIN LEVEL 7-10 Last administered o n 04/05/18at 21:59; Admin Dose 2 MG; Start 04/05/18 at 17:22 Miscellaneous Information (*Rx Drug Level Order Reminder*) VANCO TR AT 1,300 ONCE ONCE XX ; Start 04/07/18 at 13:00; Stop 04/07/18 at 13:01 SOREN DOVE Apr 07, 2018 07:20
[2018-04-07] MEDS: MUPIROCIN 2% 22 GM OINT TOP SCH ×2 (09:06→21:33)
[2018-04-07] MEDS: COLLAGENASE 5 GM (UD JAR) TOP SCH (09:06)
--- NOTE | 2018-04-07 12:32 | CONS ---
Date/Time of Note Date/Time of Note DATE: 04/07/18 TIME: 12:31 Consult Date/Type/Reason Admit Date/Time Mar 27, 2018 at 20:08 Initial Consult Date 03/29/18 Type of Consultation: Pulm/CCM Requesting Provider: DEENA BASILIO Subjective Patient stable this morning no respiratory distress Objective Vital Signs Date Temp Pulse Resp B/P (MAP) Pulse Ox O2 O2 Flow FiO2 Time Delivery Rate 04/07/18 99.5 72 18 101/54 94 11:37 (70) 04/07/18 Nasal 2.0 08:00 Cannula 04/03/18 21 18:14 Intake and Output 04/06/18 04/06/18 04/07/18 1414:59 22:59 06:59 IntakeIntake Total 1026.50 ml 775 ml 750 ml OutputOutput Total 190 ml 140 ml 1000 ml BalanceBalance 836.50 ml 635 ml -250 ml Exam GENERAL: Frail elderly gentleman appears comfortable at rest VITAL SIGNS: per chart NECK: Supple. No JVD or lymphadenopathy. CARDIAC EXAM: S1, S2. No added sounds or murmurs. CHEST: Diminished air entry bilaterally few rales ABDOMEN: Soft, nontender. No guarding or rebound. EXTREMITIES: No cyanosis, clubbing or edema. NEUROLOGIC: Generalized weakness. No focal deficits. Results/Medications Result Diagram: 04/07/18 0701 04/07/18 0542 Results 24 hrs Laboratory Tests Test 04/07/18 05:42 04/07/18 07:01 Sodium Level 146 H Potassium Level 3.8 Chloride Level 119 H Carbon Dioxide Level 26 Anion Gap 1 L Blood Urea Nitrogen 35 H Creatinine 0.93 Est Glomerular Filtrat Rate mL/min Glucose Level 119 Calcium Level 7.1 L White Blood Count 17.0 H Red Blood Count 3.31 L Hemoglobin 9.4 L Hematocrit 30.3 L Mean Corpuscular Volume 91.5 Mean Corpuscular Hemoglobin 28.4 L Mean Corpuscular Hemoglobin Concent 31.0 L Red Cell Distribution Width 17.0 H Platelet Count 95 #L Mean Platelet Volume 13.7 H Immature Granulocytes % 0.900 H Neutrophils % 82.4 H Lymphocytes % 10.1 L Monocytes % 4.8 Eosinophils % 1.6 Basophils % 0.2 Nucleated Red Blood Cells % 0.0 Immature Granulocytes # 0.160 H Neutrophils # 14.0 H Lymphocytes # 1.7 Monocytes # 0.8 Eosinophils # 0.3 Basophils # 0.0 Nucleated Red Blood Cells # 0.0 Medications Current Medications Ondansetron HCl (Zofran Inj) 4 mg Q6H PRN IV NAUSEA AND/OR VOMITING; Start 03/27/18 at 20:00 Acetaminophen (Tylenol Tab) 650 mg Q6H PRN PO PAIN LEVEL 1-3 OR FEVER; Start 03/27/18 at 20:00 Collagenase (Santyl) 1 applic DAILY TOP Last administered on 04/07/18 09:06; Admin Dose 1 APPLIC; Start 03/31/18 at 09:00 Mupirocin (Bactroban) 1 applic BID TOP Last administered on 04/07/18 09:06; Admin Dose 1 APPLIC; Start 03/31/18 at 11:00 Meropenem/Sodium Chloride 50 ml @ 100 mls/hr Q12H IVPB Last administered on 04/07/18 06:26; Admin Dose 100 MLS/HR; Start 03/31/18 at 17:00 Vancomycin HCl (Vanco Iv Per Pharmacy) VANCOMYCIN PER PHARMACY PER PROTOCOL XX ; Start 04/01/18 at 10:00 Dextrose 1,000 ml @ 50 mls/hr Q20H IV Last administered on 04/06/18 10:00; Admin Dose 50 MLS/HR; Start 04/02/18 at 12:30 Pantoprazole (Protonix Iv) 40 mg BID@06,18 IV Last administered on 04/07/18 06:26; Admin Dose 40 MG; Start 04/02/18 at 18:00 Vancomycin HCl 750 mg/Dextrose/ Water 150 ml @ 75 mls/hr Q24H IVPB Last administered on 04/06/18 13:17; Admin Dose 75 MLS/HR; Start 04/04/18 at 14:00 Midodrine (Proamatine) 10 mg Q8 PO Last administered on 04/07/18 06:26; Admin Dose 10 MG; Start 04/05/18 at 14:00 Morphine Sulfate (morphine) 2 mg Q4H PRN IV PAIN LEVEL 7-10 Last administered on 04/05/18 21:59; Admin Dose 2 MG; Start 04/05/18 at 17:22 Miscellaneous Information (*Rx Drug Level Order Reminder*) VANCO TR AT 1,300 ONCE ONCE XX ; Start 04/07/18 at 13:00; Stop 04/07/18 at 13:01 Assessment/Plan Chief Complaint/Hosp Course IMP: 1. s/p Respiratory Failure--with hypoxemic component. Tachypnea likely due to metabolic acidosis 2/2 FLORES respiratory status improved 2. Urinary tract infection with septic shock--improved. 3. FLORES--likely pre-renal vs.ATN 4. Metabolic Acidosis 2/2 #3--improved 5. AMS--Dementia and uremia 6. HyperNa+ 7. s/p GI bleed RECS: 1. Continue midodrine 10 mg Q 8 2. Monitor off vasopressors 3. Aspiration precautions, free water 4. Follow H/H 5. Aspiration precautions Consider addressing CODE STATUS given comorbidities BARBIE SAEED MD, [facility] Apr 07, 2018 12:32
[2018-04-07] MEDS: DEXTROSE 5% 1,000 ML IV SCH (12:34)
--- NOTE | 2018-04-07 14:32 | CONS ---
Date/Time of Note Date/Time of Note DATE: 04/07/18 TIME: 14:32 Assessment/Plan Assessment/Plan Assessment/Plan 1. Acute kidney injury on CKD due to ATN + prerenal azotemia 2. acute blood loss anemia- 3. acute hyperkalemia- now resolved 4. acute hypoxemic resp failure 5. Sepsis due to acute UTI 6. Severe metabolic acidosis due to FLORES 7. Hypernatremia 8. Upper GI bleeding Plan: BUN/Cr 35/0.93, Na 146- Continue IVF d5W at 50 cc/hr change midodrine to 10mg PO BID Renal US showed No evidence of hydronephrosis or mass, Nonobstructing intrarenal calculi are seen in the mid right kidney measuring 4 mm in 7 mm. 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.8 x 6.7 x 8.3 cm GI has been consulted for upper GI bleeding , Prn Blood Transfusion will follow up Result Diagram: 04/07/18 0701 04/07/18 0542 Results 24hrs Laboratory Tests Test 04/07/18 05:42 04/07/18 07:01 04/07/18 13:31 Sodium Level 146 H Potassium Level 3.8 Chloride Level 119 H Carbon Dioxide Level 26 Anion Gap 1 L Blood Urea Nitrogen 35 H Creatinine 0.93 Est Glomerular Filtrat Rate mL/min Glucose Level 119 Calcium Level 7.1 L White Blood Count 17.0 H Red Blood Count 3.31 L Hemoglobin 9.4 L Hematocrit 30.3 L Mean Corpuscular Volume 91.5 Mean Corpuscular Hemoglobin 28.4 L Mean Corpuscular Hemoglobin Concent 31.0 L Red Cell Distribution Width 17.0 H Platelet Count 95 #L Mean Platelet Volume 13.7 H Immature Granulocytes % 0.900 H Neutrophils % 82.4 H Lymphocytes % 10.1 L Monocytes % 4.8 Eosinophils % 1.6 Basophils % 0.2 Nucleated Red Blood Cells % 0.0 Immature Granulocytes # 0.160 H Neutrophils # 14.0 H Lymphocytes # 1.7 Monocytes # 0.8 Eosinophils # 0.3 Basophils # 0.0 Nucleated Red Blood Cells # 0.0 Vancomycin Level Trough 10.6 Consultation Date/Type/Reason Admit Date/Time Mar 27, 2018 at 20:08 Initial Consult Date 03/31/18 Type of Consult NEPHROLOGY Requesting Provider: DEENA BASILIO Exam/Review of Systems Vital Signs Vitals Vital Signs Date Temp Pulse Resp B/P (MAP) Pulse Ox O2 O2 Flow FiO2 Time Delivery Rate 04/07/18 84 12:47 04/07/18 99.5 18 101/54 94 11:37 (70) 04/07/18 Nasal 2.0 08:00 Cannula 04/03/18 21 18:14 Intake and Output 04/06/18 04/06/18 04/07/18 1515:00 23:00 07:00 IntakeIntake Total 1100.75 ml 600 ml 750 ml OutputOutput Total 180 ml 120 ml 1000 ml BalanceBalance 920.75 ml 480 ml -250 ml Exam GENERAL: no acute distress, alert, oriented x 2 NECK: Supple. No JVD or lymphadenopathy. CARDIAC EXAM: S1, S2. No added sounds or murmurs. CHEST: Diminished air entry bilaterally with few rales ABDOMEN: Soft, nontender. No guarding or rebound. EXTREMITIES: No cyanosis, clubbing or edema. NEUROLOGIC: Generalized weakness Medications Medications Current Medications Ondansetron HCl (Zofran Inj) 4 mg Q6H PRN IV NAUSEA AND/OR VOMITING; Start 03/27/18 at 20:00 Acetaminophen (Tylenol Tab) 650 mg Q6H PRN PO PAIN LEVEL 1-3 OR FEVER; Start 03/27/18 at 20:00 Collagenase (Santyl) 1 applic DAILY TOP Last administered on 04/07/18at 09:06; Admin Dose 1 APPLIC; Start 03/31/18 at 09:00 Mupirocin (Bactroban) 1 applic BID TOP Last administered on 04/07/18at 09:06; Ad min Dose 1 APPLIC; Start 03/31/18 at 11:00 Meropenem/Sodium Chloride 50 ml @ 100 mls/hr Q12H IVPB Last administered on 04/07/18at 06:26; Admin Dose 100 MLS/HR; Start 03/31/18 at 17:00 Vancomycin HCl (Vanco Iv Per Pharmacy) VANCOMYCIN PER PHARMACY PER PROTOCOL XX ; Start 04/01/18 at 10:00 Dextrose 1,000 ml @ 50 mls/hr Q20H IV Last administered on 04/07/18at 12:34; Admin Dose 50 MLS/HR; Start 04/02/18 at 12:30 Pantoprazole (Protonix Iv) 40 mg BID@18 IV Last administered on 04/07/18 06:26; Admin Dose 40 MG; Start 04/02/18 at 18:00 Vancomycin HCl 750 mg/Dextrose/ Water 150 ml @ 75 mls/hr Q24H IVPB Last administered on 04/06/18 13:17; Admin Dose 75 MLS/HR; Start 04/04/18 at 14:00 Midodrine (Proamatine) 10 mg Q8 PO Last administered on 04/07/18 06:26; Admin Dose 10 MG; Start 04/05/18 at 14:00 Morphine Sulfate (morphine) 2 mg Q4H PRN IV PAIN LEVEL 7-10 Last administered on 04/05/18 21:59; Admin Dose 2 MG; Start 04/05/18 at 17:22 STEVEN BLANCO MD Apr 07, 2018 14:32
[2018-04-07] MEDS: VANCOMYCIN 750 MG in DEXTROSE 5% 150 ML IVPB SCH (14:45)
--- NOTE | 2018-04-07 14:58 | CONS ---
Date/Time of Note Date/Time of Note DATE: 04/07/18 TIME: 14:56 Assessment/Plan Assessment/Plan Hospital Course Transferred out of ICU. Lethargic in no distress afebrile no vomiting no diarrhea, tolerates tube feeding WBC 17 platelets 95 neutrophils 82.4 BUN 35 creatinine 0.93 Chest x-ray this morning revealed no new infiltrates. Persistent bilateral lower lobe atelectasis/infiltrates Indwelling: NGT, Honeycutt TLC Microbiology: Urine culture grew E. coli ESBL Antimicrobials: Vancomycin meropenem Physical examination: Well-developed chronically ill-appearing wasted elderly man who is in no distress. Head atraumatic normocephalic sclera nonicteric. Neck is supple chest rise symmetrical breath sounds diminished bases. Heart: S1-S2 abdomen distended tender on palpation extremities without cyanosis Assessment: 1. Persistent leukocytosis, status post septic shock 2. GI bleeding===>status post EGD with Hemoclip placement 3. S/p E. coli ESBL UTI 4. MRSA nares colonization 5. Dysphagia 6. Dementia Plan: Patient is clinically stable, continue aspiration precautions, dc abx and observe Result Diagram: 04/07/18 0701 04/07/18 0542 Results 24hrs Laboratory Tests Test 04/07/18 05:42 04/07/18 07:01 04/07/18 13:31 Sodium Level 146 H Potassium Level 3.8 Chloride Level 119 H Carbon Dioxide Level 26 Anion Gap 1 L Blood Urea Nitrogen 35 H Creatinine 0.93 Est Glomerular Filtrat Rate mL/min Glucose Level 119 Calcium Level 7.1 L White Blood Count 17.0 H Red Blood Count 3.31 L Hemoglobin 9.4 L Hematocrit 30.3 L Mean Corpuscular Volume 91.5 Mean Corpuscular Hemoglobin 28.4 L Mean Corpuscular Hemoglobin Concent 31.0 L Red Cell Distribution Width 17.0 H Platelet Count 95 #L Mean Platelet Volume 13.7 H Immature Granulocytes % 0.900 H Neutrophils % 82.4 H Lymphocytes % 10.1 L Monocytes % 4.8 Eosinophils % 1.6 Basophils % 0.2 Nucleated Red Blood Cells % 0.0 Immature Granulocytes # 0.160 H Neutrophils # 14.0 H Lymphocytes # 1.7 Monocytes # 0.8 Eosinophils # 0.3 Basophils # 0.0 Nucleated Red Blood Cells # 0.0 Vancomycin Level Trough 10.6 Consultation Date/Type/Reason Admit Date/Time Mar 27, 2018 at 20:08 Initial Consult Date 04/02/18 Type of Consult ID Requesting Provider: DEENA BASILIO Exam/Review of Systems Vital Signs Vitals Vital Signs Date Temp Pulse Resp B/P (MAP) Pulse Ox O2 O2 Flow FiO2 Time Delivery Rate 04/07/18 84 12:47 04/07/18 99.5 18 101/54 94 11:37 (70) 04/07/18 Nasal 2.0 08:00 Cannula 04/03/18 21 18:14 Intake and Output 04/06/18 04/06/18 04/07/18 1414:59 22:59 06:59 IntakeIntake Total 1026.50 ml 775 ml 750 ml OutputOutput Total 190 ml 140 ml 1000 ml BalanceBalance 836.50 ml 635 ml -250 ml Medications Medications Current Medications Ondansetron HCl (Zofran Inj) 4 mg Q6H PRN IV NAUSEA AND/OR VOMITING; Start 03/27/18 at 20:00 Acetaminophen (Tylenol Tab) 650 mg Q6H PRN PO PAIN LEVEL 1-3 OR FEVER; Start 03/27/18 at 20:00 Collagenase (Santyl) 1 applic DAILY TOP Last administered on 04/07/18 09:06; Admin Dose 1 APPLIC; Start 03/31/18 at 09:00 Mupirocin (Bactroban) 1 applic BID TOP Last administered on 04/07/18 09:06; Admin Dose 1 APPLIC; Start 03/31/18 at 11:00 Meropenem/Sodium Chloride 50 ml @ 100 mls/hr Q12H IVPB Last administered on 04/07/18 06:26; Admin Dose 100 MLS/HR; Start 03/31/18 at 17:00 Vancomycin HCl (Vanco Iv Per Pharmacy) VANCOMYCIN PER PHARMACY PER PROTOCOL XX ; Start 04/01/18 at 10:00 Dextrose 1,000 ml @ 50 mls/hr Q20H IV Last administered on 04/07/18at 12:34; Admin Dose 50 MLS/HR; Start 04/02/18 at 12:30 Pantoprazole (Protonix Iv) 40 mg BID@06,18 IV Last administered on 04/07/18 06:26; Admin Dose 40 MG; Start 04/02/18 at 18:00 Vancomycin HCl 750 mg/Dextrose/ Water 150 ml @ 75 mls/hr Q24H IVPB Last administered on 04/07/18 14:45; Admin Dose 75 MLS/HR; Start 04/04/18 at 14:00 Midodrine (Proamatine) 10 mg Q8 PO Last administered on 04/07/18 14:53; Admin Dose 10 MG; Start 04/05/18 at 14:00 Morphine Sulfate (morphine) 2 mg Q4H PRN IV PAIN LEVEL 7-10 Last administered on 04/05/18at 21:59; Admin Dose 2 MG; Start 04/05/18 at 17:22 DAVONTE MCMAHAN NP Apr 07, 2018 14:58
--- NOTE | 2018-04-07 15:26 | PN ---
Date/Time of Note Date/Time of Note DATE: 04/07/18 TIME: 15:22 Assessment/Plan VTE [place] [facility] [place]: 9 [place] [facility] [place] Yes Pharmacological prophylaxis: NA/contraindicated Pharm contraindication: bleeding Lines/Catheters IV Catheter Type (from [facility]): Central Line Central line still needed: Yes Urinary Cath still in place: Yes Reason Cath still needed: urinary retention Assessment/Plan Hospital Course Patient is awake alert, pleasantly confused continues on supplemental oxygen via nasal cannula, low-grade fever. Assessment/Plan -Anemia secondary to GI bleed. Dr. Gomes is following in GI consultation. Transfuse as needed, monitor hemoglobin and hematocrit. -Bleeding gastric ulcers, s/p hemostasis with placement of hemoclip during EGD by Dr Guallpa on 04/03/18. -S/p septic shock secondary to urinary tract infection, continue antibiotics per ID. Dr. Guzman is following in infection disease consultation. -Hypoxemic respiratory failure, resolving. Dr. Nam is following in pulmonology consultation. -Acute kidney injury, resolving. Dr. Senior following in nephrology consultation. -Hypernatremia, improving -Dementia -Multiple pressure ulcers -Protein calorie malnutrition Further recommendations based on clinical course. Plan of care discussed with Dr. Kiser. Result Diagram: 04/07/18 0701 04/07/18 0542 Results 24hrs Laboratory Tests Test 04/07/18 05:42 04/07/18 07:01 04/07/18 13:31 Sodium Level 146 H Potassium Level 3.8 Chloride Level 119 H Carbon Dioxide Level 26 Anion Gap 1 L Blood Urea Nitrogen 35 H Creatinine 0.93 Est Glomerular Filtrat Rate mL/min Glucose Level 119 Calcium Level 7.1 L White Blood Count 17.0 H Red Blood Count 3.31 L Hemoglobin 9.4 L Hematocrit 30.3 L Mean Corpuscular Volume 91.5 Mean Corpuscular Hemoglobin 28.4 L Mean Corpuscular Hemoglobin Concent 31.0 L Red Cell Distribution Width 17.0 H Platelet Count 95 #L Mean Platelet Volume 13.7 H Immature Granulocytes % 0.900 H Neutrophils % 82.4 H Lymphocytes % 10.1 L Monocytes % 4.8 Eosinophils % 1.6 Basophils % 0.2 Nucleated Red Blood Cells % 0.0 Immature Granulocytes # 0.160 H Neutrophils # 14.0 H Lymphocytes # 1.7 Monocytes # 0.8 Eosinophils # 0.3 Basophils # 0.0 Nucleated Red Blood Cells # 0.0 Vancomycin Level Trough 10.6 Exam/Review of Systems Vital Signs Vitals Vital Signs Date Temp Pulse Resp B/P (MAP) Pulse Ox O2 O2 Flow FiO2 Time Delivery Rate 04/07/18 84 12:47 04/07/18 99.5 18 101/54 94 11:37 (70) 04/07/18 Nasal 2.0 08:00 Cannula 04/03/18 21 18:14 Intake and Output 04/06/18 04/06/18 04/07/18 1414:59 22:59 06:59 IntakeIntake Total 1026.50 ml 775 ml 750 ml OutputOutput Total 190 ml 140 ml 1000 ml BalanceBalance 836.50 ml 635 ml -250 ml Exam Constitutional: alert Neck: supple Cardiovascular: regular rate and rhythm Gastrointestinal: soft, non-tender Genitourinary - Male: other (Honeycutt catheter) Skin: nl turgor Additional Comments Right chest triple lumen catheter Medications Medications Current Medications Ondansetron HCl (Zofran Inj) 4 mg Q6H PRN IV NAUSEA AND/OR VOMITING; Start 03/27/18 at 20:00 Acetaminophen (Tylenol Tab) 650 mg Q6H PRN PO PAIN LEVEL 1-3 OR FEVER; Start 03/27/18 at 20:00 Collagenase (Santyl) 1 applic DAILY TOP Last administered on 04/07/18at 09:06; Admin Dose 1 APPLIC; Start 03/31/18 at 09:00 Mupirocin (Bactroban) 1 applic BID TOP Last administered on 04/07/18at 09:06; Admin Dose 1 APPLIC; Start 03/31/18 at 11:00 Meropenem/Sodium Chloride 50 ml @ 100 mls/hr Q12H IVPB Last administered on 04/07/18 06:26; Admin Dose 100 MLS/HR; Start 03/31/18 at 17:00 Vancomycin HCl (Vanco Iv Per Pharmacy) VANCOMYCIN PER PHARMACY PER PROTOCOL XX ; Start 04/01/18 at 10:00 Dextrose 1,000 ml @ 50 mls/hr Q20H IV Last administered on 04/07/18at 12:34; A dmin Dose 50 MLS/HR; Start 04/02/18 at 12:30 Pantoprazole (Protonix Iv) 40 mg BID@06,18 IV Last administered on 04/07/18at 06:26; Admin Dose 40 MG; Start 04/02/18 at 18:00 Vancomycin HCl 750 mg/Dextrose/ Water 150 ml @ 75 mls/hr Q24H IVPB Last administered on 04/07/18at 14:45; Admin Dose 75 MLS/HR; Start 04/04/18 at 14:00 Midodrine (Proamatine) 10 mg Q8 PO Last administered on 04/07/18at 14:53; Admin D ose 10 MG; Start 04/05/18 at 14:00 Morphine Sulfate (morphine) 2 mg Q4H PRN IV PAIN LEVEL 7-10 Last administered on 04/05/18at 21:59; Admin Dose 2 MG; Start 04/05/18 at 17:22 Fluconazole (Diflucan) 100 mg DAILY PO ; Start 04/07/18 at 15:00 JUDY CORNEJO Apr 07, 2018 15:26
[2018-04-07] MEDS: FLUCONAZOLE 100 MG TAB PO SCH (15:29)
[2018-04-08] VITALS (12 sets, daily range): BP systolic 110–133; BP diastolic 52–78; PULSE 65–82; RESP 14–19
[2018-04-08] MEDS: PANTOPRAZOLE 40 MG INJ IV SCH ×2 (05:55→18:42)
[2018-04-08] MEDS: MEROPENEM 500MG/50 ML (PMX) 50 ML IVPB SCH (05:55)
--- NOTE | 2018-04-08 08:26 | PN ---
Date/Time of Note Date/Time of Note DATE: 04/08/18 TIME: 08:25 Assessment/Plan VTE Prophylaxis Risk score (from [facility] [place]0 risk: 9 SCD applied (from [facility] [place] Yes Pharmacological prophylaxis: NA/contraindicated Pharm contraindication: bleeding Lines/Catheters [facility] Type ([facility] PICC Line Central line still needed: Yes Urinary Cath still in place: Yes Reason Cath still needed: urinary retention, terminal illness/intractable pain Assessment/Plan Hospital Course 88 yo male presented with urosepsis and respiratory failure and coffee ground emesis 1. Upper GI bleed manifested through coffee ground emesis and melena -s/p EGD -resolved 2. Gastric ulcers, etiology of bled 3. Hiatal hernia 4. Anemia secondary to gastric ulcer bleeding -stable 5. E. coli in urine, wbc trending down Plan: No NSAIDs Monitor HH and transfuse as necessary Monitor for acute GI bleeding Continue with PPI BID Pt examined and plan of care discussed with Dr. Gomes Result Diagram: 04/08/18 0715 04/07/18 0542 Results 24hrs Laboratory Tests Test 04/07/18 13:31 04/08/18 07:15 Vancomycin Level Trough 10.6 White Blood Count 15.5 H Red Blood Count 3.29 L Hemoglobin 9.3 L Hematocrit 30.4 L Mean Corpuscular Volume 92.4 Mean Corpuscular Hemoglobin 28.3 L Mean Corpuscular Hemoglobin Concent 30.6 L Red Cell Distribution Width 16.8 H Platelet Count 163 # Mean Platelet Volume 13.8 H Immature Granulocytes % 0.600 H Neutrophils % 80.8 H Lymphocytes % 11.9 L Monocytes % 5.0 Eosinophils % 1.6 Basophils % 0.1 Nucleated Red Blood Cells % 0.0 Immature Granulocytes # 0.100 H Neutrophils # 12.5 H Lymphocytes # 1.8 Monocytes # 0.8 Eosinophils # 0.3 Basophils # 0.0 Nucleated Red Blood Cells # 0.0 Exam/Review of Systems Vital Signs Vitals Vital Signs Date Temp Pulse Resp B/P (MAP) Pulse Ox O2 O2 Flow FiO2 Time Delivery Rate 04/08/18 98.1 72 16 113/56 96 07:13 (75) 04/07/18 Nasal 2.0 20:00 Cannula Intake and Output 04/07/18 04/07/18 04/08/18 1515:00 23:00 07:00 IntakeIntake Total 900 ml OutputOutput Total 700 ml BalanceBalance 200 ml Medications Medications Current Medications Ondansetron HCl (Zofran Inj) 4 mg Q6H PRN IV NAUSEA AND/OR VOMITING; Start 03/27/18 at 20:00 Acetaminophen (Tylenol Tab) 650 mg Q6H PRN PO PAIN LEVEL 1-3 OR FEVER; Start 03/27/18 at 20:00 Collagenase (Santyl) 1 applic DAILY TOP Last administered on 04/07/18 09:06; Admin Dose 1 APPLIC; Start 03/31/18 at 09:00 Mupirocin (Bactroban) 1 applic BID TOP Last administered on 04/07/18 21:33; Admin Dose 1 APPLIC; Start 03/31/18 at 11:00 Meropenem/Sodium Chloride 50 ml @ 100 mls/hr Q12H IVPB Last administered on 04/08/18 05:55; Admin Dose 100 MLS/HR; Start 03/31/18 at 17:00 Vancomycin HCl (Vanco Iv Per Pharmacy) VANCOMYCIN PER PHARMACY PER PROTOCOL XX ; Start 04/01/18 at 10:00 Dextrose 1,000 ml @ 50 mls/hr Q20H IV Last administered on 04/07/18 12:34; Admin Dose 50 MLS/HR; Start 04/02/18 at 12:30 Pantoprazole (Protonix Iv) 40 mg BID@06,18 IV Last administered on 04/08/18 05:55; Admin Dose 40 MG; Start 04/02/18 at 18:00 Vancomycin HCl 750 mg/Dextrose/ Water 150 ml @ 75 mls/hr Q24H IVPB Last administered on 04/07/18 14:45; Admin Dose 75 MLS/HR; Start 04/04/18 at 14:00 Morphine Sulfate (morphine) 2 mg Q4H PRN IV PAIN LEVEL 7-10 Last administered on 04/05/18 21:59; Admin Dose 2 MG; Start 04/05/18 at 17:22 Fluconazole (Diflucan) 100 mg DAILY PO Last administered on 04/07/18 15:29; Admin Dose 100 MG; Start 04/07/18 at 15:00 Midodrine (Proamatine) 10 mg BID PO Last administered on 04/07/18 21:29; Admin Dose 10 MG; Start 04/07/18 at 21:00 SOREN DOVE Apr 08, 2018 08:26
[2018-04-08] MEDS: DEXTROSE 5% 1,000 ML IV SCH (08:30)
[2018-04-08] MEDS: COLLAGENASE 5 GM (UD JAR) TOP SCH (09:15)
[2018-04-08] MEDS: MUPIROCIN 2% 22 GM OINT TOP SCH ×2 (09:16→21:06)
[2018-04-08] MEDS: FLUCONAZOLE 100 MG TAB PO SCH (09:16)
[2018-04-08] MEDS: MIDODRINE 5 MG TAB PO SCH ×2 (09:51→21:06)
--- NOTE | 2018-04-08 10:13 | CONS ---
Date/Time of Note Date/Time of Note DATE: 04/08/18 TIME: 10:12 Assessment/Plan Assessment/Plan Assessment/Plan 1. Acute kidney injury on CKD due to ATN + prerenal azotemia 2. acute blood loss anemia- 3. acute hyperkalemia- now resolved 4. acute hypoxemic resp failure 5. Sepsis due to acute UTI 6. Severe metabolic acidosis due to FLORES 7. Hypernatremia 8. Upper GI bleeding Plan: BUN/Cr 30/1.0, Na 145- Continue IVF d5W at 50 cc/hr midodrine to 10mg PO BID Renal US showed No evidence of hydronephrosis or mass, Nonobstructing intrarenal calculi are seen in the mid right kidney measuring 4 mm in 7 mm. 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.8 x 6.7 x 8.3 cm will follow up Result Diagram: 04/08/18 0715 04/08/18 0715 Results 24hrs Laboratory Tests Test 04/07/18 13:31 04/08/18 07:15 Vancomycin Level Trough 10.6 White Blood Count 15.5 H Red Blood Count 3.29 L Hemoglobin 9.3 L Hematocrit 30.4 L Mean Corpuscular Volume 92.4 Mean Corpuscular Hemoglobin 28.3 L Mean Corpuscular Hemoglobin Concent 30.6 L Red Cell Distribution Width 16.8 H Platelet Count 163 # Mean Platelet Volume 13.8 H Immature Granulocytes % 0.600 H Neutrophils % 80.8 H Lymphocytes % 11.9 L Monocytes % 5.0 Eosinophils % 1.6 Basophils % 0.1 Nucleated Red Blood Cells % 0.0 Immature Granulocytes # 0.100 H Neutrophils # 12.5 H Lymphocytes # 1.8 Monocytes # 0.8 Eosinophils # 0.3 Basophils # 0.0 Nucleated Red Blood Cells # 0.0 Sodium Level 145 H Potassium Level 4.3 Chloride Level 115 H Carbon Dioxide Level 28 Anion Gap 2 L Blood Urea Nitrogen 30 H Creatinine 1.00 Est Glomerular Filtrat Rate mL/min Glucose Level 109 Calcium Level 7.5 L Consultation Date/Type/Reason Admit Date/Time Mar 27, 2018 at 20:08 Initial Consult Date 03/31/18 Type of Consult NEPHROLOGY Requesting Provider: DEENA BASILIO Exam/Review of Systems Vital Signs Vitals Vital Signs Date Temp Pulse Resp B/P (MAP) Pulse Ox O2 O2 Flow FiO2 Time Delivery Rate 04/08/18 66 08:28 04/08/18 98.1 16 113/56 96 07:13 (75) 04/07/18 Nasal 2.0 20:00 Cannula Intake and Output 04/07/18 04/07/18 04/08/18 1515:00 23:00 07:00 IntakeIntake Total 900 ml OutputOutput Total 700 ml BalanceBalance 200 ml Exam GENERAL: no acute distress, alert, oriented x 2 NECK: Supple. No JVD or lymphadenopathy. CARDIAC EXAM: S1, S2. No added sounds or murmurs. CHEST: Diminished air entry bilaterally with few rales ABDOMEN: Soft, nontender. No guarding or rebound. EXTREMITIES: No cyanosis, clubbing or edema. NEUROLOGIC: Generalized weakness Medications Medications Current Medications Ondansetron HCl (Zofran Inj) 4 mg Q6H PRN IV NAUSEA AND/OR VOMITING; Start 03/27/18 at 20:00 Acetaminophen (Tylenol Tab) 650 mg Q6H PRN PO PAIN LEVEL 1-3 OR FEVER; Start 03/27/18 at 20:00 Collagenase (Santyl) 1 applic DAILY TOP Last administered on 04/08/18 09:15; Admin Dose 1 APPLIC; Start 03/31/18 at 09:00 Mupirocin (Bactroban) 1 applic BID TOP Last administered on 04/08/18 09:16; Admin Dose 1 APPLIC; Start 03/31/18 at 11:00 Meropenem/Sodium Chloride 50 ml @ 100 mls/hr Q12H IVPB Last administered on 04/08/18at 05:55; Admin Dose 100 MLS/HR; Start 03/31/18 at 17:00 Vancomycin HCl (Vanco Iv Per Pharmacy) VANCOMYCIN PER PHARMACY PER PROTOCOL XX ; Start 04/01/18 at 10:00 Dextrose 1,000 ml @ 50 mls/hr Q20H IV Last administered on 04/07/18at 12:34; Admin Dose 50 MLS/HR; Start 04/02/18 at 12:30 Pantoprazole (Protonix Iv) 40 mg BID@06,18 IV Last administered on 04/08/18 05:55; Admin Dose 40 MG; Start 04/02/18 at 18:00 Vancomycin HCl 750 mg/Dextrose/ Water 150 ml @ 75 mls/hr Q24H IVPB Last administered on 04/07/18at 14:45; Admin Dose 75 MLS/HR; Start 04/04/18 at 14:00 Morphine Sulfate (morphine) 2 mg Q4H PRN IV PAIN LEVEL 7-10 Last administered on 04/05/18at 21:59; Admin Dose 2 MG; Start 04/05/18 at 17:22 Fluconazole (Diflucan) 100 mg DAILY PO Last administered on 04/08/18at 09:16; Admin Dose 100 MG; Start 04/07/18 at 15:00 Midodrine (Proamatine) 10 mg BID PO Last administered on 04/08/18at 09:51; Admin Dose 10 MG; Start 04/07/18 at 21:00 STEVEN BLANCO MD Apr 08, 2018 10:12
--- NOTE | 2018-04-08 11:08 | CONS ---
Date/Time of Note Date/Time of Note DATE: 04/08/18 TIME: 11:05 Consult Date/Type/Reason Admit Date/Time Mar 27, 2018 at 20:08 Initial Consult Date 03/29/18 Type of Consultation: Pulm/CCM Requesting Provider: DEENA BASILIO Subjective No respiratory distress this morning. Nasogastric tube in place. Objective Vital Signs Date Temp Pulse Resp B/P (MAP) Pulse Ox O2 O2 Flow FiO2 Time Delivery Rate 04/08/18 66 08:28 04/08/18 98.1 16 113/56 96 07:13 (75) 04/07/18 Nasal 2.0 20:00 Cannula Intake and Output 04/07/18 04/07/18 04/08/18 1515:00 23:00 07:00 IntakeIntake Total 900 ml OutputOutput Total 700 ml BalanceBalance 200 ml Exam GENERAL: Frail elderly gentleman appears comfortable at rest VITAL SIGNS: per chart NECK: Supple. No JVD or lymphadenopathy. CARDIAC EXAM: S1, S2. No added sounds or murmurs. CHEST: Diminished air entry bilaterally few rales ABDOMEN: Soft, nontender. No guarding or rebound. EXTREMITIES: No cyanosis, clubbing or edema. NEUROLOGIC: Generalized weakness. No focal deficits. Results/Medications Result Diagram: 04/08/18 0715 04/08/18 0715 Results 24 hrs Laboratory Tests Test 04/07/18 13:31 04/08/18 07:15 Vancomycin Level Trough 10.6 White Blood Count 15.5 H Red Blood Count 3.29 L Hemoglobin 9.3 L Hematocrit 30.4 L Mean Corpuscular Volume 92.4 Mean Corpuscular Hemoglobin 28.3 L Mean Corpuscular Hemoglobin Concent 30.6 L Red Cell Distribution Width 16.8 H Platelet Count 163 # Mean Platelet Volume 13.8 H Immature Granulocytes % 0.600 H Neutrophils % 80.8 H Lymphocytes % 11.9 L Monocytes % 5.0 Eosinophils % 1.6 Basophils % 0.1 Nucleated Red Blood Cells % 0.0 Immature Granulocytes # 0.100 H Neutrophils # 12.5 H Lymphocytes # 1.8 Monocytes # 0.8 Eosinophils # 0.3 Basophils # 0.0 Nucleated Red Blood Cells # 0.0 Sodium Level 145 H Potassium Level 4.3 Chloride Level 115 H Carbon Dioxide Level 28 Anion Gap 2 L Blood Urea Nitrogen 30 H Creatinine 1.00 Est Glomerular Filtrat Rate mL/min Glucose Level 109 Calcium Level 7.5 L Medications Current Medications Ondansetron HCl (Zofran Inj) 4 mg Q6H PRN IV NAUSEA AND/OR VOMITING; Start 03/27/18 at 20:00 Acetaminophen (Tylenol Tab) 650 mg Q6H PRN PO PAIN LEVEL 1-3 OR FEVER; Start 1 05/28/17 at 20:00 Collagenase (Santyl) 1 applic DAILY TOP Last administered on 04/08/18 09:15; Admin Dose 1 APPLIC; Start 03/31/18 at 09:00 Mupirocin (Bactroban) 1 applic BID TOP Last administered on 04/08/18 09:16; Admin Dose 1 APPLIC; Start 03/31/18 at 11:00 Meropenem/Sodium Chloride 50 ml @ 100 mls/hr Q12H IVPB Last administered on 04/08/18 05:55; Admin Dose 100 MLS/HR; Start 03/31/18 at 17:00 Vancomycin HCl (Vanco Iv Per Pharmacy) VANCOMYCIN PER PHARMACY PER PROTOCOL XX ; Start 04/01/18 at 10:00 Dextrose 1,000 ml @ 50 mls/hr Q20H IV Last administered on 04/07/18 12:34; Admin Dose 50 MLS/HR; Start 04/02/18 at 12:30 Pantoprazole (Protonix Iv) 40 mg BID@06,18 IV Last administered on 04/08/18 05:55; Admin Dose 40 MG; Start 04/02/18 at 18:00 Vancomycin HCl 750 mg/Dextrose/ Water 150 ml @ 75 mls/hr Q24H IVPB Last administered on 04/07/18 14:45; Admin Dose 75 MLS/HR; Start 04/04/18 at 14:00 Morphine Sulfate (morphine) 2 mg Q4H PRN IV PAIN LEVEL 7-10 Last administered on 04/05/18 21:59; Admin Dose 2 MG; Start 04/05/18 at 17:22 Fluconazole (Diflucan) 100 mg DAILY PO Last administered on 04/08/18 09:16; Admin Dose 100 MG; Start 04/07/18 at 15:00 Midodrine (Proamatine) 10 mg BID PO Last administered on 04/08/18 09:51; Admin Dose 10 MG; Start 04/07/18 at 21:00 Assessment/Plan Chief Complaint/Hosp Course IMP: 1. s/p Respiratory Failure--with hypoxemic component. Tachypnea likely due to metabolic acidosis 2/2 FLORES respiratory status improved 2. Urinary tract infection with septic shock--improved. 3. FLORES--likely pre-renal vs.ATN 4. Metabolic Acidosis 2/2 #3--improved 5. AMS--Dementia and uremia 6. HyperNa+ 7. s/p GI bleed RECS: 1. Continue midodrine 10 mg Q 8 2. Monitor off vasopressors 3. Aspiration precautions, free water 4. Follow H/H 5. Aspiration precautions may require PEG tube placement. Speech therapy evaluation Consider addressing CODE STATUS given comorbidities BARBIE SAEED MD, [facility] Apr 08, 2018 11:08
--- NOTE | 2018-04-08 14:18 | CONS ---
Date/Time of Note Date/Time of Note DATE: 04/08/18 TIME: 14:17 Assessment/Plan Assessment/Plan Hospital Course TPatient is lethargic arousable in no distress no fevers overnight. He is on fluconazole, urine culture growing yeast Indwelling: NGT, Honeycutt TLC Physical examination: Well-developed chronically ill-appearing wasted elderly man who is in no distress. Head atraumatic normocephalic sclera nonicteric. Neck is supple chest rise symmetrical breath sounds diminished bases. Heart: S1-S2 abdomen distended tender on palpation extremities without cyanosis Assessment: 1. Persistent leukocytosis, status post septic shock 2. GI bleeding===>status post EGD with Hemoclip placement 3. S/p E. coli ESBL UTI, now + yeast 4. MRSA nares colonization 5. Dysphagia 6. Dementia Plan: Patient is clinically stable, continue Diflucan, aspiration precautions Result Diagram: 04/08/18 0715 04/08/18 0715 Results 24hrs Laboratory Tests Test 04/08/18 07:15 White Blood Count 15.5 H Red Blood Count 3.29 L Hemoglobin 9.3 L Hematocrit 30.4 L Mean Corpuscular Volume 92.4 Mean Corpuscular Hemoglobin 28.3 L Mean Corpuscular Hemoglobin Concent 30.6 L Red Cell Distribution Width 16.8 H Platelet Count 163 # Mean Platelet Volume 13.8 H Immature Granulocytes % 0.600 H Neutrophils % 80.8 H Lymphocytes % 11.9 L Monocytes % 5.0 Eosinophils % 1.6 Basophils % 0.1 Nucleated Red Blood Cells % 0.0 Immature Granulocytes # 0.100 H Neutrophils # 12.5 H Lymphocytes # 1.8 Monocytes # 0.8 Eosinophils # 0.3 Basophils # 0.0 Nucleated Red Blood Cells # 0.0 Sodium Level 145 H Potassium Level 4.3 Chloride Level 115 H Carbon Dioxide Level 28 Anion Gap 2 L Blood Urea Nitrogen 30 H Creatinine 1.00 Est Glomerular Filtrat Rate mL/min Glucose Level 109 Calcium Level 7.5 L Consultation Date/Type/Reason Admit Date/Time Mar 27, 2018 at 20:08 Initial Consult Date 04/02/18 Type of Consult ID Requesting Provider: DEENA BASILIO Exam/Review of Systems Vital Signs Vitals Vital Signs Date Temp Pulse Resp B/P (MAP) Pulse Ox O2 O2 Flow FiO2 Time Delivery Rate 04/08/18 72 14:16 04/08/18 99.4 14 133/60 96 11:44 (84) 04/07/18 Nasal 2.0 20:00 Cannula Intake and Output 04/07/18 04/07/18 04/08/18 1515:00 23:00 07:00 IntakeIntake Total 900 ml OutputOutput Total 700 ml BalanceBalance 200 ml Medications Medications Current Medications Ondansetron HCl (Zofran Inj) 4 mg Q6H PRN IV NAUSEA AND/OR VOMITING; Start 03/27/18 at 20:00 Acetaminophen (Tylenol Tab) 650 mg Q6H PRN PO PAIN LEVEL 1-3 OR FEVER; Start 03/27/18 at 20:00 Collagenase (Santyl) 1 applic DAILY TOP Last administered on 04/08/18 09:15; Admin Dose 1 APPLIC; Start 03/31/18 at 09:00 Mupirocin (Bactroban) 1 applic BID TOP Last administered on 04/08/18 09:16; Admin Dose 1 APPLIC; Start 03/31/18 at 11:00 Dextrose 1,000 ml @ 50 mls/hr Q20H IV Last administered on 04/07/18 12:34; Admin Dose 50 MLS/HR; Start 04/02/18 at 12:30 Pantoprazole (Protonix Iv) 40 mg BID@06,18 IV Last administered on 04/08/18 05:55; Admin Dose 40 MG; Start 04/02/18 at 18:00 Morphine Sulfate (morphine) 2 mg Q4H PRN IV PAIN LEVEL 7-10 Last administered on 04/05/18 21:59; Admin Dose 2 MG; Start 04/05/18 at 17:22 Fluconazole (Diflucan) 100 mg DAILY PO Last administered on 04/08/18 09:16; Admin Dose 100 MG; Start 04/07/18 at 15:00 Midodrine (Proamatine) 10 mg BID PO Last administered on 04/08/18 09:51; Admin Dose 10 MG; Start 04/07/18 at 21:00 DAVONTE MCMAHAN NP Apr 08, 2018 14:18
--- NOTE | 2018-04-08 14:29 | PN ---
Date/Time of Note Date/Time of Note DATE: 04/08/18 TIME: 14:23 Assessment/Plan VTE Prophylaxis Risk score (from Ns)>0 risk: 9 SCD applied (from [facility] [place]): Yes Pharmacological prophylaxis: NA/contraindicated Pharm contraindication: bleeding Lines/Catheters IV Catheter Type (from Nrs): PICC Line Central line still needed: Yes Urinary Cath still in place: Yes Reason Cath still needed: urinary retention Assessment/Plan Hospital Course Patient remains hemodynamically stable, awake, alert, continues on feeding via NG tube, pending swallow evaluation from speech therapy. Assessment/Plan -Anemia secondary to GI bleed. Dr. Gomes is following in GI consultation. Transfuse as needed, monitor hemoglobin and hematocrit. -Bleeding gastric ulcers, s/p hemostasis with placement of hemoclip during EGD by Dr Guallpa on 04/03/18. -S/p septic shock secondary to urinary tract infection, continue antibiotics per ID. Dr. Guzman is following in infection disease consultation. -Hypoxemic respiratory failure, resolving. Dr. Nam is following in pulmonology consultation. -Acute kidney injury, resolving. Dr. Senior following in nephrology consultation. -Hypernatremia, improving -Dementia -Multiple pressure ulcers -Protein calorie malnutrition Further recommendations based on clinical course. Plan of care discussed with Dr. Kiser. Result Diagram: 04/08/18 0715 04/08/18 0715 Results 24hrs Laboratory Tests Test 04/08/18 07:15 White Blood Count 15.5 H Red Blood Count 3.29 L Hemoglobin 9.3 L Hematocrit 30.4 L Mean Corpuscular Volume 92.4 Mean Corpuscular Hemoglobin 28.3 L Mean Corpuscular Hemoglobin Concent 30.6 L Red Cell Distribution Width 16.8 H Platelet Count 163 # Mean Platelet Volume 13.8 H Immature Granulocytes % 0.600 H Neutrophils % 80.8 H Lymphocytes % 11.9 L Monocytes % 5.0 Eosinophils % 1.6 Basophils % 0.1 Nucleated Red Blood Cells % 0.0 Immature Granulocytes # 0.100 H Neutrophils # 12.5 H Lymphocytes # 1.8 Monocytes # 0.8 Eosinophils # 0.3 Basophils # 0.0 Nucleated Red Blood Cells # 0.0 Sodium Level 145 H Potassium Level 4.3 Chloride Level 115 H Carbon Dioxide Level 28 Anion Gap 2 L Blood Urea Nitrogen 30 H Creatinine 1.00 Est Glomerular Filtrat Rate mL/min Glucose Level 109 Calcium Level 7.5 L Exam/Review of Systems Vital Signs Vitals Vital Signs Date Temp Pulse Resp B/P (MAP) Pulse Ox O2 O2 Flow FiO2 Time Delivery Rate 04/08/18 72 14:16 04/08/18 99.4 14 133/60 96 11:44 (84) 04/07/18 Nasal 2.0 20:00 Cannula Intake and Output 04/07/18 04/07/18 04/08/18 1515:00 23:00 07:00 IntakeIntake Total 900 ml OutputOutput Total 700 ml BalanceBalance 200 ml Exam Constitutional: alert Neck: supple Cardiovascular: regular rate and rhythm Gastrointestinal: soft, non-tender Genitourinary - Male: other (Honeycutt catheter) Skin: nl turgor Additional Comments Right chest triple lumen catheter Medications Medications Current Medications Ondansetron HCl (Zofran Inj) 4 mg Q6H PRN IV NAUSEA AND/OR VOMITING; Start 03/27/18 at 20:00 Acetaminophen (Tylenol Tab) 650 mg Q6H PRN PO PAIN LEVEL 1-3 OR FEVER; Start 03/27/18 at 20:00 Collagenase (Santyl) 1 applic DAILY TOP Last administered on 04/08/18 09:15; Admin Dose 1 APPLIC; Start 03/31/18 at 09:00 Mupirocin (Bactroban) 1 applic BID TOP Last administered on 04/08/18 09:16; Admin Dose 1 APPLIC; Start 03/31/18 at 11:00 Dextrose 1,000 ml @ 50 mls/hr Q20H IV Last administered on 04/07/18 12:34; Admin Dose 50 MLS/HR; Start 04/02/18 at 12:30 Pantoprazole (Protonix Iv) 40 mg BID@06,18 IV Last administered on 04/08/18 05:55; Admin Dose 40 MG; Start 04/02/18 at 18:00 Morphine Sulfate (morphine) 2 mg Q4H PRN IV PAIN LEVEL 7-10 Last administered on 04/05/18 21:59; Admin Dose 2 MG; Start 04/05/18 at 17:22 Fluconazole (Diflucan) 100 mg DAILY PO Last administered on 04/08/18 09:16; Admin Dose 100 MG; Start 04/07/18 at 15:00 Midodrine (Proamatine) 10 mg BID PO Last administered on 04/08/18at 09:51; Admin Dose 10 MG; Start 04/07/18 at 21:00 JUDY CORNEJO Apr 08, 2018 14:29
[2018-04-09] VITALS (12 sets, daily range): BP systolic 103–137; BP diastolic 51–96; PULSE 63–97; RESP 14–20
[2018-04-09] MEDS: DEXTROSE 5% 1,000 ML IV SCH (04:28)
[2018-04-09] MEDS: PANTOPRAZOLE 40 MG INJ IV SCH ×2 (06:41→17:47)
--- NOTE | 2018-04-09 06:47 | PN ---
Date/Time of Note Date/Time of Note DATE: 04/09/18 TIME: 06:46 Assessment/Plan VTE Prophylaxis [place] [facility] [place]: 6 [place]CD [place] [facility] [place] Yes Pharmacological prophylaxis: NA/contraindicated Pharm contraindication: bleeding Lines/Catheters [facility]from [facility] Central Line Central line still needed: Yes Urinary Cath still in place: Yes Reason Cath still needed: urinary retention Assessment/Plan Hospital Course 88 yo male presented with urosepsis and respiratory failure and coffee ground emesis 1. Upper GI bleed manifested through coffee ground emesis and melena -s/p EGD -resolved 2. Gastric ulcers, etiology of bled 3. Hiatal hernia 4. Anemia secondary to gastric ulcer bleeding -stable 5. E. coli, yeast (04/06) in urine, wbc trending down Plan: Consider swallow evaluation No NSAIDs Monitor HH and transfuse as necessary Monitor for acute GI bleeding Continue with PPI BID Pt examined and plan of care discussed with Dr. Gomes Result Diagram: 04/08/18 0715 04/08/18 0715 Results 24hrs Laboratory Tests Test 04/08/18 07:15 White Blood Count 15.5 H Red Blood Count 3.29 L Hemoglobin 9.3 L Hematocrit 30.4 L Mean Corpuscular Volume 92.4 Mean Corpuscular Hemoglobin 28.3 L Mean Corpuscular Hemoglobin Concent 30.6 L Red Cell Distribution Width 16.8 H Platelet Count 163 # Mean Platelet Volume 13.8 H Immature Granulocytes % 0.600 H Neutrophils % 80.8 H Lymphocytes % 11.9 L Monocytes % 5.0 Eosinophils % 1.6 Basophils % 0.1 Nucleated Red Blood Cells % 0.0 Immature Granulocytes # 0.100 H Neutrophils # 12.5 H Lymphocytes # 1.8 Monocytes # 0.8 Eosinophils # 0.3 Basophils # 0.0 Nucleated Red Blood Cells # 0.0 Sodium Level 145 H Potassium Level 4.3 Chloride Level 115 H Carbon Dioxide Level 28 Anion Gap 2 L Blood Urea Nitrogen 30 H Creatinine 1.00 Est Glomerular Filtrat Rate mL/min Glucose Level 109 Calcium Level 7.5 L Subjective 24 Hr Interval Summary Free Text/Dictation Large dark brown bm overnight, no melena. Tolerating tube feeds. No residuals. No evidence of GI bleeding. Exam/Review of Systems Vital Signs Vitals Vital Signs Date Temp Pulse Resp B/P (MAP) Pulse Ox O2 O2 Flow FiO2 Time Delivery Rate 04/09/18 71 04:00 04/09/18 99.5 14 132/70 97 03:38 (90) 04/07/18 Nasal 2.0 20:00 Cannula Intake and Output 04/08/18 04/08/18 04/09/18 1515:00 23:00 07:00 IntakeIntake Total 1400 ml 900 ml OutputOutput Total 700 ml 500 ml BalanceBalance 700 ml 400 ml Exam Constitutional: alert Psych: no complaints Head: normocephalic Eyes: nl sclera, PERRL ENMT: mucosa pink and moist Respiratory: diminished breath sounds Cardiovascular: regular rate and rhythm Gastrointestinal: soft, non-tender Neurological: other (pt nods to some of my questions, ) Medications Medications Current Medications Ondansetron HCl (Zofran Inj) 4 mg Q6H PRN IV NAUSEA AND/OR VOMITING; Start 03/27/18 at 20:00 Acetaminophen (Tylenol Tab) 650 mg Q6H PRN PO PAIN LEVEL 1-3 OR FEVER; Start 03/27/18 at 20:00 Collagenase (Santyl) 1 applic DAILY TOP Last administered on 04/08/18 09:15; Admin Dose 1 APPLIC; Start 03/31/18 at 09:00 Mupirocin (Bactroban) 1 applic BID TOP Last administered on 04/08/18 21:06; Admin Dose 1 APPLIC; Start 03/31/18 at 11:00 Dextrose 1,000 ml @ 50 mls/hr Q20H IV Last administered on 04/09/18 04:28; Admin Dose 50 MLS/HR; Start 04/02/18 at 12:30 Pantoprazole (Protonix Iv) 40 mg BID@06,18 IV Last administered on 04/09/18 06:41; Admin Dose 40 MG; Start 04/02/18 at 18:00 Morphine Sulfate (morphine) 2 mg Q4H PRN IV PAIN LEVEL 7-10 Last administered on 04/05/18 21:59; Admin Dose 2 MG; Start 04/05/18 at 17:22 Fluconazole (Diflucan) 100 mg DAILY PO Last administered on 04/08/18 09:16; A dmin Dose 100 MG; Start 04/07/18 at 15:00 Midodrine (Proamatine) 10 mg BID PO Last administered on 04/08/18at 21:06; Admin Dose 10 MG; Start 04/07/18 at 21:00 SOREN DOVE Apr 09, 2018 06:47
[2018-04-09] MEDS: MUPIROCIN 2% 22 GM OINT TOP SCH ×2 (09:05→20:07)
[2018-04-09] MEDS: FLUCONAZOLE 100 MG TAB PO SCH (09:05)
--- NOTE | 2018-04-09 11:12 | CONS ---
Date/Time of Note Date/Time of Note DATE: 04/09/18 TIME: 11:12 Assessment/Plan Assessment/Plan Assessment/Plan 1. Acute kidney injury on CKD due to ATN + prerenal azotemia 2. acute blood loss anemia- 3. acute hyperkalemia- now resolved 4. acute hypoxemic resp failure 5. Sepsis due to acute UTI 6. Severe metabolic acidosis due to FLORES 7. Hypernatremia 8. 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.8 x 6.7 x 8.3 cm will follow up Result Diagram: 04/09/18 0639 04/09/18 0639 Results 24hrs Laboratory Tests Test 04/09/18 06:39 White Blood Count 15.4 H Red Blood Count 3.22 L Hemoglobin 9.1 L Hematocrit 29.1 L Mean Corpuscular Volume 90.4 Mean Corpuscular Hemoglobin 28.3 L Mean Corpuscular Hemoglobin Concent 31.3 L Red Cell Distribution Width 16.5 H Platelet Count 183 Mean Platelet Volume 13.6 H Immature Granulocytes % 0.700 H Neutrophils % 84.4 H Lymphocytes % 10.1 L Monocytes % 3.9 Eosinophils % 0.7 Basophils % 0.2 Nucleated Red Blood Cells % 0.0 Immature Granulocytes # 0.100 H Neutrophils # 13.0 H Lymphocytes # 1.6 Monocytes # 0.6 Eosinophils # 0.1 Basophils # 0.0 Nucleated Red Blood Cells # 0.0 Sodium Level 141 Potassium Level 3.4 L Chloride Level 113 H Carbon Dioxide Level 27 Anion Gap 1 L Blood Urea Nitrogen 25 H Creatinine 0.85 Est Glomerular Filtrat Rate mL/min Glucose Level 118 Calcium Level 7.3 L Consultation Date/Type/Reason Admit Date/Time Mar 27, 2018 at 20:08 Initial Consult Date 03/31/18 Type of Consult NEPHROLOGY Requesting Provider: DEENA BASILIO Exam/Review of Systems Vital Signs Vitals Vital Signs Date Temp Pulse Resp B/P (MAP) Pulse Ox O2 O2 Flow FiO2 Time Delivery Rate 04/09/18 83 08:36 04/09/18 100.0 16 137/59 95 07:57 (85) 04/07/18 Nasal 2.0 20:00 Cannula Intake and Output 04/08/18 04/08/18 04/09/18 1515:00 23:00 07:00 IntakeIntake Total 1400 ml 900 ml OutputOutput Total 700 ml 500 ml BalanceBalance 700 ml 400 ml Exam Constitutional: alert Psych: no complaints Head: normocephalic ENMT: nl external ears & nose Neck: supple, non-tender Respiratory: clear to auscultation, normal air movement, diminished breath sounds Cardiovascular: regular rate and rhythm, nl pulses Gastrointestinal: soft, non-tender Musculoskeletal: nl extremities to inspection Medications Medications Current Medications Ondansetron HCl (Zofran Inj) 4 mg Q6H PRN IV NAUSEA AND/OR VOMITING; Start 03/27/18 at 20:00 Acetaminophen (Tylenol Tab) 650 mg Q6H PRN PO PAIN LEVEL 1-3 OR FEVER; Start 03/27/18 at 20:00 Collagenase (Santyl) 1 applic DAILY TOP Last administered on 04/08/18 09:15; Admin Dose 1 APPLIC; Start 03/31/18 at 09:00 Mupirocin (Bactroban) 1 applic BID TOP Last administered on 04/09/18 09:05; Admin Dose 1 APPLIC; Start 03/31/18 at 11:00 Dextrose 1,000 ml @ 50 mls/hr Q20H IV Last administered on 04/09/18 04:28; Admin Dose 50 MLS/HR; Start 04/02/18 at 12:30 Pantoprazole (Protonix Iv) 40 mg BID@06,18 IV Last administered on 04/09/18 06:41; Admin Dose 40 MG; Start 04/02/18 at 18:00 Morphine Sulfate (morphine) 2 mg Q4H PRN IV PAIN LEVEL 7-10 Last administered on 04/05/18 21:59; Admin Dose 2 MG; Start 04/05/18 at 17:22 Midodrine (Proamatine) 10 mg BID PO Last administered on 04/08/18 21:06; Admin Dose 10 MG; Start 04/07/18 at 21:00 Voriconazole (Vfend) 200 mg BID PO ; Start 04/09/18 at 21:00; Status UNV STEVEN BLANCO MD Apr 09, 2018 11:12
[2018-04-09] MEDS ORDERED: POTASSIUM CHLORIDE 100 ML IVPB ONE (11:30)
--- NOTE | 2018-04-09 13:50 | PN ---
Date/Time of Note Date/Time of Note DATE: 04/09/18 TIME: 13:42 Assessment/Plan VTE Prophylaxis Risk score (from Ns)>0 risk: 8 SCD applied (from [facility] [place]): Yes Pharmacological prophylaxis: NA/contraindicated Pharm contraindication: bleeding Lines/Catheters IV Catheter Type (from Nrs): Central Line Central line still needed: Yes Urinary Cath still in place: Yes Reason Cath still needed: urinary retention Assessment/Plan Hospital Course Patient has low-grade fever, awake alert, undergoing evaluation by speech therapy for PO safety. Assessment/Plan -Anemia secondary to GI bleed. Dr. Gomes is following in GI consultation. Transfuse as needed, monitor hemoglobin and hematocrit. -Bleeding gastric ulcers, s/p hemostasis with placement of hemoclip during EGD by Dr Guallpa on 04/03/18. Continue Protonix. -S/p septic shock secondary to urinary tract infection, continue antibiotics per ID. Dr. Guzman is following in infection disease consultation. -Hypoxemic respiratory failure, resolving. Dr. Nam is following in pulmonology consultation. -Acute kidney injury, resolved. Dr. Senior following in nephrology consultation. -Hypernatremia, resolved. -MRSA of nares, continue Bactroban -Dementia -Multiple pressure ulcers, optimize nutrition, continue vitamin C and zinc sulfate, off loading. -Protein calorie malnutrition Further recommendations based on clinical course. Plan of care discussed with Dr. Kiser. Result Diagram: 04/09/18 0639 04/09/18 0639 Results 24hrs Laboratory Tests Test 04/09/18 06:39 White Blood Count 15.4 H Red Blood Count 3.22 L Hemoglobin 9.1 L Hematocrit 29.1 L Mean Corpuscular Volume 90.4 Mean Corpuscular Hemoglobin 28.3 L Mean Corpuscular Hemoglobin Concent 31.3 L Red Cell Distribution Width 16.5 H Platelet Count 183 Mean Platelet Volume 13.6 H Immature Granulocytes % 0.700 H Neutrophils % 84.4 H Lymphocytes % 10.1 L Monocytes % 3.9 Eosinophils % 0.7 Basophils % 0.2 Nucleated Red Blood Cells % 0.0 Immature Granulocytes # 0.100 H Neutrophils # 13.0 H Lymphocytes # 1.6 Monocytes # 0.6 Eosinophils # 0.1 Basophils # 0.0 Nucleated Red Blood Cells # 0.0 Sodium Level 141 Potassium Level 3.4 L Chloride Level 113 H Carbon Dioxide Level 27 Anion Gap 1 L Blood Urea Nitrogen 25 H Creatinine 0.85 Est Glomerular Filtrat Rate mL/min Glucose Level 118 Calcium Level 7.3 L Exam/Review of Systems Vital Signs Vitals Vital Signs Date Temp Pulse Resp B/P (MAP) Pulse Ox O2 O2 Flow FiO2 Time Delivery Rate 04/09/18 97 13:16 04/09/18 98.7 16 118/55 95 11:26 (76) 04/07/18 Nasal 2.0 20:00 Cannula Intake and Output 04/08/18 04/08/18 04/09/18 1515:00 23:00 07:00 IntakeIntake Total 1400 ml 900 ml OutputOutput Total 700 ml 500 ml BalanceBalance 700 ml 400 ml Exam Constitutional: alert Neck: supple Cardiovascular: regular rate and rhythm Gastrointestinal: soft, non-tender Genitourinary - Male: other (Honeycutt catheter) Skin: nl turgor Additional Comments Right chest triple lumen catheter Medications Medications Current Medications Ondansetron HCl (Zofran Inj) 4 mg Q6H PRN IV NAUSEA AND/OR VOMITING; Start 03/27/18 at 20:00 Acetaminophen (Tylenol Tab) 650 mg Q6H PRN PO PAIN LEVEL 1-3 OR FEVER; Start 03/27/18 at 20:00 Collagenase (Santyl) 1 applic DAILY TOP Last administered on 04/08/18 09:15; Admin Dose 1 APPLIC; Start 03/31/18 at 09:00 Mupirocin (Bactroban) 1 applic BID TOP Last administered on 04/09/18 09:05; Admin Dose 1 APPLIC; Start 03/31/18 at 11:00 Dextrose 1,000 ml @ 50 mls/hr Q20H IV Last administered on 04/09/18 04:28; Admin Dose 50 MLS/HR; Start 04/02/18 at 12:30 Pantoprazole (Protonix Iv) 40 mg BID@06,18 IV Last administered on 04/09/18at 0 6:41; Admin Dose 40 MG; Start 04/02/18 at 18:00 Morphine Sulfate (morphine) 2 mg Q4H PRN IV PAIN LEVEL 7-10 Last administered on 04/05/18at 21:59; Admin Dose 2 MG; Start 04/05/18 at 17:22 Midodrine (Proamatine) 10 mg BID PO Last administered on 04/08/18at 21:06; Admin Dose 10 MG; Start 04/07/18 at 21:00 Voriconazole (Vfend) 200 mg BID PO ; Start 04/09/18 at 12:00 JUDY CORNEJO Apr 09, 2018 13:50
[2018-04-09] MEDS: MIDODRINE 5 MG TAB PO SCH ×2 (13:58→20:06)
[2018-04-09] MEDS: COLLAGENASE 5 GM (UD JAR) TOP SCH (13:58)
[2018-04-09] MEDS: VORICONAZOLE 200 MG TAB PO SCH ×2 (13:58→20:06)
[2018-04-09] MEDS: ASCORBIC ACID 500 MG TAB NGT SCH (15:21)
--- NOTE | 2018-04-09 15:28 | CONS ---
Date/Time of Note Date/Time of Note DATE: 04/09/18 TIME: 15:27 Assessment/Plan Assessment/Plan Hospital Course No acute changes. Patient is awake and looks comfortable, tolerates tube feeding, no fevers WBC 15.4 platelets 183 neutrophils 84.4 BUN 25 creatinine 0.85 Chest x-ray this morning revealed no change from April 07 Indwelling: NG tube right subclavian triple-lumen catheter, Honeycutt Physical examination: Well-developed chronically ill-appearing wasted elderly man who is in no distress. Head atraumatic normocephalic sclera nonicteric. Neck is supple chest rise symmetrical breath sounds diminished bases. Heart: S1-S2 abdomen distended tender on palpation extremities without cyanosis Assessment: 1. Persistent leukocytosis, status post septic shock 2. Status post GI bleeding===> EGD with Hemoclip placement 3. S/p E. coli ESBL UTI, now + yeast 4. MRSA nares colonization 5. Dysphagia 6. Dementia Plan: Patient is clinically stable, continue aspiration precautions, DC triple- lumen catheter, continue voriconazole Result Diagram: 04/09/18 0639 04/09/18 0639 Results 24hrs Laboratory Tests Test 04/09/18 06:39 White Blood Count 15.4 H Red Blood Count 3.22 L Hemoglobin 9.1 L Hematocrit 29.1 L Mean Corpuscular Volume 90.4 Mean Corpuscular Hemoglobin 28.3 L Mean Corpuscular Hemoglobin Concent 31.3 L Red Cell Distribution Width 16.5 H Platelet Count 183 Mean Platelet Volume 13.6 H Immature Granulocytes % 0.700 H Neutrophils % 84.4 H Lymphocytes % 10.1 L Monocytes % 3.9 Eosinophils % 0.7 Basophils % 0.2 Nucleated Red Blood Cells % 0.0 Immature Granulocytes # 0.100 H Neutrophils # 13.0 H Lymphocytes # 1.6 Monocytes # 0.6 Eosinophils # 0.1 Basophils # 0.0 Nucleated Red Blood Cells # 0.0 Sodium Level 141 Potassium Level 3.4 L Chloride Level 113 H Carbon Dioxide Level 27 Anion Gap 1 L Blood Urea Nitrogen 25 H Creatinine 0.85 Est Glomerular Filtrat Rate mL/min Glucose Level 118 Calcium Level 7.3 L Consultation Date/Type/Reason Admit Date/Time Mar 27, 2018 at 20:08 Initial Consult Date 04/02/18 Type of Consult ID Requesting Provider: DEENA BASILIO Exam/Review of Systems Vital Signs Vitals Vital Signs Date Temp Pulse Resp B/P (MAP) Pulse Ox O2 O2 Flow FiO2 Time Delivery Rate 04/09/18 97.8 85 15 120/56 98 15:15 (77) 04/07/18 Nasal 2.0 20:00 Cannula Intake and Output 04/08/18 04/08/18 04/09/18 1515:00 23:00 07:00 IntakeIntake Total 1400 ml 900 ml OutputOutput Total 700 ml 500 ml BalanceBalance 700 ml 400 ml Medications Medications Current Medications Ondansetron HCl (Zofran Inj) 4 mg Q6H PRN IV NAUSEA AND/OR VOMITING; Start 03/27/18 at 20:00 Acetaminophen (Tylenol Tab) 650 mg Q6H PRN PO PAIN LEVEL 1-3 OR FEVER; Start 03/27/18 at 20:00 Collagenase (Santyl) 1 applic DAILY TOP Last administered on 04/09/18 13:58; Admin Dose 1 APPLIC; Start 03/31/18 at 09:00 Mupirocin (Bactroban) 1 applic BID TOP Last administered on 04/09/18 09:05; Admin Dose 1 APPLIC; Start 03/31/18 at 11:00 Dextrose 1,000 ml @ 50 mls/hr Q20H IV Last administered on 04/09/18 04:28; Admin Dose 50 MLS/HR; Start 04/02/18 at 12:30 Pantoprazole (Protonix Iv) 40 mg BID@06,18 IV Last administered on 04/09/18 06:41; Admin Dose 40 MG; Start 04/02/18 at 18:00 Morphine Sulfate (morphine) 2 mg Q4H PRN IV PAIN LEVEL 7-10 Last administered on 04/05/18 21:59; Admin Dose 2 MG; Start 04/05/18 at 17:22 Midodrine (Proamatine) 10 mg BID PO Last administered on 04/09/18 13:58; Admin Dose 10 MG; Start 04/07/18 at 21:00 Voriconazole (Vfend) 200 mg BID PO Last administered on 04/09/18 13:58; Admin Dose 200 MG; Start 04/09/18 at 12:00 Ascorbic Acid (Vitamin C) 500 mg DAILY NGT Last administered on 1/9/19at 15:21; Admin Dose 500 MG; Start 04/09/18 at 14:00 Zinc Sulfate (Zinc Sulfate) 220 mg DAILY NGT ; Start 04/10/18 at 09:00 DAVONTE MCMAHAN NP Apr 09, 2018 15:28
--- NOTE | 2018-04-09 15:44 | CONS ---
Date/Time of Note Date/Time of Note DATE: 04/09/18 TIME: 15:43 Consult Date/Type/Reason Admit Date/Time Mar 27, 2018 at 20:08 Initial Consult Date 03/29/18 Type of Consultation: Pulm/CCM Requesting Provider: DEENA BASILIO Subjective No changes, continues NGT feeding Objective Vital Signs Date Temp Pulse Resp B/P (MAP) Pulse Ox O2 O2 Flow FiO2 Time Delivery Rate 04/09/18 97.8 85 15 120/56 98 15:15 (77) 04/07/18 Nasal 2.0 20:00 Cannula Intake and Output 04/08/18 04/08/18 04/09/18 1515:00 23:00 07:00 IntakeIntake Total 1400 ml 900 ml OutputOutput Total 700 ml 500 ml BalanceBalance 700 ml 400 ml Exam GENERAL: Frail elderly gentleman appears comfortable at rest VITAL SIGNS: per chart NECK: Supple. No JVD or lymphadenopathy. CARDIAC EXAM: S1, S2. No added sounds or murmurs. CHEST: Diminished air entry bilaterally few rales ABDOMEN: Soft, nontender. No guarding or rebound. EXTREMITIES: No cyanosis, clubbing or edema. NEUROLOGIC: Generalized weakness. No focal deficits. Results/Medications Result Diagram: 04/09/18 0639 04/09/18 0639 Results 24 hrs Laboratory Tests Test 04/09/18 06:39 White Blood Count 15.4 H Red Blood Count 3.22 L Hemoglobin 9.1 L Hematocrit 29.1 L Mean Corpuscular Volume 90.4 Mean Corpuscular Hemoglobin 28.3 L Mean Corpuscular Hemoglobin Concent 31.3 L Red Cell Distribution Width 16.5 H Platelet Count 183 Mean Platelet Volume 13.6 H Immature Granulocytes % 0.700 H Neutrophils % 84.4 H Lymphocytes % 10.1 L Monocytes % 3.9 Eosinophils % 0.7 Basophils % 0.2 Nucleated Red Blood Cells % 0.0 Immature Granulocytes # 0.100 H Neutrophils # 13.0 H Lymphocytes # 1.6 Monocytes # 0.6 Eosinophils # 0.1 Basophils # 0.0 Nucleated Red Blood Cells # 0.0 Sodium Level 141 Potassium Level 3.4 L Chloride Level 113 H Carbon Dioxide Level 27 Anion Gap 1 L Blood Urea Nitrogen 25 H Creatinine 0.85 Est Glomerular Filtrat Rate mL/min Glucose Level 118 Calcium Level 7.3 L Medications Current Medications Ondansetron HCl (Zofran Inj) 4 mg Q6H PRN IV NAUSEA AND/OR VOMITING; Start 03/27/18 at 20:00 Acetaminophen (Tylenol Tab) 650 mg Q6H PRN PO PAIN LEVEL 1-3 OR FEVER; Start 03/27/18 at 20:00 Collagenase (Santyl) 1 applic DAILY TOP Last administered on 04/09/18 13:58; Admin Dose 1 APPLIC; Start 03/31/18 at 09:00 Mupirocin (Bactroban) 1 applic BID TOP Last administered on 04/09/18 09:05; Ad min Dose 1 APPLIC; Start 03/31/18 at 11:00 Dextrose 1,000 ml @ 50 mls/hr Q20H IV Last administered on 04/09/18 04:28; Admin Dose 50 MLS/HR; Start 04/02/18 at 12:30 Pantoprazole (Protonix Iv) 40 mg BID@06,18 IV Last administered on 04/09/18 06:41; Admin Dose 40 MG; Start 04/02/18 at 18:00 Morphine Sulfate (morphine) 2 mg Q4H PRN IV PAIN LEVEL 7-10 Last administered on 04/05/18 21:59; Admin Dose 2 MG; Start 04/05/18 at 17:22 Midodrine (Proamatine) 10 mg BID PO Last administered on 04/09/18 13:58; Admin Dose 10 MG; Start 04/07/18 at 21:00 Voriconazole (Vfend) 200 mg BID PO Last administered on 04/09/18 13:58; Admin Dose 200 MG; Start 04/09/18 at 12:00 Ascorbic Acid (Vitamin C) 500 mg DAILY NGT Last administered on 04/09/18 15:21; Admin Dose 500 MG; Start 04/09/18 at 14:00 Zinc Sulfate (Zinc Sulfate) 220 mg DAILY NGT ; Start 04/10/18 at 09:00 Assessment/Plan Chief Complaint/Hosp Course IMP: 1. s/p Respiratory Failure--with hypoxemic component. Tachypnea likely due to metabolic acidosis 2/2 FLORES respiratory status improved 2. Urinary tract infection with septic shock--improved. 3. FLORES--likely pre-renal vs.ATN 4. Metabolic Acidosis 2/2 #3--improved 5. AMS--Dementia and uremia 6. HyperNa+ 7. s/p GI bleed RECS: 1. Continue midodrine 10 mg Q 8 2. Monitor off vasopressors 3. Aspiration precautions, free water 4. Follow H/H 5. Aspiration precautions may require PEG tube placement. Speech therapy evaluation Consider addressing CODE STATUS given comorbidities transfer to med surg ? BARBI[facility] SAEED MD, [facility] Apr 09, 2018 15:44
[2018-04-09] MEDS: ACETAMINOPHEN 325 MG TAB PO PRN (20:05)
[2018-04-10] VITALS (12 sets, daily range): BP systolic 100–120; BP diastolic 51–59; PULSE 70–89; RESP 18–20
[2018-04-10] MEDS: DEXTROSE 5% 1,000 ML IV SCH (00:38)
[2018-04-10] MEDS: PANTOPRAZOLE 40 MG INJ IV SCH ×2 (05:23→17:27)
--- NOTE | 2018-04-10 07:01 | PN ---
Date/Time of Note Date/Time of Note DATE: 04/10/18 TIME: 06:57 Assessment/Plan VTE Prophylaxis [place] [facility] [place]: 3 [place]CD applied [place] [facility] [place] Yes Pharmacological prophylaxis: NA/contraindicated Pharm contraindication: bleeding Lines/Catheters IV C[facility]ter Type [facility]from [facility] Central Line Central line still needed: Yes Urinary Cath still in place: Yes Reason Cath still needed: terminal illness/intractable pain Assessment/Plan Hospital Course 88 yo male presented with urosepsis and respiratory failure and coffee ground emesis 1. Upper GI bleed manifested through coffee ground emesis and melena -s/p EGD -resolved 2. Gastric ulcers, etiology of bleed 3. Hiatal hernia 4. Anemia secondary to gastric ulcer bleeding -stable 5. E. coli, yeast (04/06) in urine, wbc trending down 6. Dysphagia 7. Malnutrition. Plan: Swallow eval. Speech therapy to re evaluate today. Consider PEG. Please let us know if primary would like us to place G tube No NSAIDs Monitor HH and transfuse as necessary Monitor for acute GI bleeding Continue with PPI BID Pt examined and plan of care discussed with Dr. Gomes Result Diagram: 04/10/18 0543 04/10/18 0543 Results 24hrs Laboratory Tests Test 04/10/18 05:43 White Blood Count 22.1 #H Red Blood Count 3.17 L Hemoglobin 9.0 L Hematocrit 28.7 L Mean Corpuscular Volume 90.5 Mean Corpuscular Hemoglobin 28.4 L Mean Corpuscular Hemoglobin Concent 31.4 L Red Cell Distribution Width 16.5 H Platelet Count 183 Mean Platelet Volume 13.7 H Immature Granulocytes % 0.700 H Neutrophils % 87.1 H Lymphocytes % 7.3 L Monocytes % 4.3 Eosinophils % 0.3 Basophils % 0.3 Nucleated Red Blood Cells % 0.0 Immature Granulocytes # 0.150 H Neutrophils # 19.3 H Lymphocytes # 1.6 Monocytes # 1.0 H Eosinophils # 0.1 Basophils # 0.1 Nucleated Red Blood Cells # 0.0 Sodium Level 141 Potassium Level 3.8 Chloride Level 108 Carbon Dioxide Level 25 Anion Gap 8 Blood Urea Nitrogen 24 H Creatinine 0.81 Est Glomerular Filtrat Rate mL/min Glucose Level 109 Calcium Level 7.2 L Exam/Review of Systems Vital Signs Vitals Vital Signs Date Temp Pulse Resp B/P (MAP) Pulse Ox O2 O2 Flow FiO2 Time Delivery Rate 04/10/18 74 04:00 04/10/18 98.9 20 120/58 97 Room Air 03:49 (78) 04/07/18 2.0 20:00 Intake and Output 04/09/18 04/09/18 04/10/18 1515:00 23:00 07:00 IntakeIntake Total 1550 ml 600 ml OutputOutput Total 700 ml BalanceBalance 850 ml 600 ml Medications Medications Current Medications Ondansetron HCl (Zofran Inj) 4 mg Q6H PRN IV NAUSEA AND/OR VOMITING; Start 03/27/18 at 20:00 Acetaminophen (Tylenol Tab) 650 mg Q6H PRN PO PAIN LEVEL 1-3 OR FEVER Last administered on 04/09/18 20:05; Admin Dose 650 MG; Start 03/27/18 at 20:00 Collagenase (Santyl) 1 applic DAILY TOP Last administered on 04/09/18 13:58; Admin Dose 1 APPLIC; Start 03/31/18 at 09:00 Mupirocin (Bactroban) 1 applic BID TOP Last administered on 04/09/18 20:07; Admin Dose 1 APPLIC; Start 03/31/18 at 11:00 Dextrose 1,000 ml @ 50 mls/hr Q20H IV Last administered on 04/10/18 00:38; Admin Dose 50 MLS/HR; Start 04/02/18 at 12:30 Pantoprazole (Protonix Iv) 40 mg BID@06,18 IV Last administered on 04/10/18 05:23; Admin Dose 40 MG; Start 04/02/18 at 18:00 Morphine Sulfate (morphine) 2 mg Q4H PRN IV PAIN LEVEL 7-10 Last administered on 04/05/18 21:59; Admin Dose 2 MG; Start 04/05/18 at 17:22 Midodrine (Proamatine) 10 mg BID PO Last administered on 04/09/18 20:06; Admin Dose 10 MG; Start 04/07/18 at 21:00 Voriconazole (Vfend) 200 mg BID PO Last administered on 04/09/18 20:06; Admin Dose 200 MG; Start 04/09/18 at 12:00 Ascorbic Acid (Vitamin C) 500 mg DAILY NGT Last administered on 1/9/19at 15:21; Admin Dose 500 MG; Start 04/09/18 at 14:00 Zinc Sulfate (Zinc Sulfate) 220 mg DAILY NGT ; Start 04/10/18 at 09:00 SOREN DOVE Apr 10, 2018 07:01
--- NOTE | 2018-04-10 08:30 | CONS ---
Date/Time of Note Date/Time of Note DATE: 04/10/18 TIME: 08:30 Assessment/Plan Assessment/Plan Assessment/Plan 1. Acute kidney injury on CKD due to ATN + prerenal azotemia 2. acute blood loss anemia- 3. acute hyperkalemia- now resolved 4. acute hypoxemic resp failure 5. Sepsis due to acute UTI 6. Severe metabolic acidosis due to FLORES 7. Hypernatremia 8. Upper GI bleeding Plan: BUN/Cr 24/0.81, Na 141, BP stable , IVF stopped yesterday, currently on Tube feeding Swallow evaluation midodrine to 10mg PO BID Renal US showed No evidence of hydronephrosis or mass, Nonobstructing intrarena l calculi are seen in the mid right kidney measuring 4 mm in 7 mm. 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.8 x 6.7 x 8.3 cm will follow up Result Diagram: 04/10/18 0543 04/10/18 0543 Results 24hrs Laboratory Tests Test 04/10/18 05:43 White Blood Count 22.1 #H Red Blood Count 3.17 L Hemoglobin 9.0 L Hematocrit 28.7 L Mean Corpuscular Volume 90.5 Mean Corpuscular Hemoglobin 28.4 L Mean Corpuscular Hemoglobin Concent 31.4 L Red Cell Distribution Width 16.5 H Platelet Count 183 Mean Platelet Volume 13.7 H Immature Granulocytes % 0.700 H Neutrophils % 87.1 H Lymphocytes % 7.3 L Monocytes % 4.3 Eosinophils % 0.3 Basophils % 0.3 Nucleated Red Blood Cells % 0.0 Immature Granulocytes # 0.150 H Neutrophils # 19.3 H Lymphocytes # 1.6 Monocytes # 1.0 H Eosinophils # 0.1 Basophils # 0.1 Nucleated Red Blood Cells # 0.0 Sodium Level 141 Potassium Level 3.8 Chloride Level 108 Carbon Dioxide Level 25 Anion Gap 8 Blood Urea Nitrogen 24 H Creatinine 0.81 Est Glomerular Filtrat Rate mL/min Glucose Level 109 Calcium Level 7.2 L Consultation Date/Type/Reason Admit Date/Time Mar 27, 2018 at 20:08 Initial Consult Date 03/31/18 Type of Consult NEPHROLOGY Requesting Provider: DEENA BASILIO 24 HR Interval Summary Free Text/Dictation BUN/Cr 24/0.81, Na 141, BP stable Exam/Review of Systems Vital Signs Vitals Vital Signs Date Temp Pulse Resp B/P (MAP) Pulse Ox O2 O2 Flow FiO2 Time Delivery Rate 04/10/18 99.1 70 20 114/56 96 07:21 (75) 04/10/18 Room Air 03:49 04/07/18 2.0 20:00 Intake and Output 04/09/18 04/09/18 04/10/18 1515:00 23:00 07:00 IntakeIntake Total 1550 ml 1500 ml OutputOutput Total 700 ml 320 ml BalanceBalance 850 ml 1180 ml Exam Constitutional: alert Psych: no complaints Head: normocephalic ENMT: nl external ears & nose Neck: supple, non-tender Respiratory: clear to auscultation, normal air movement, diminished breath sounds Cardiovascular: regular rate and rhythm, nl pulses Gastrointestinal: soft, non-tender Musculoskeletal: nl extremities to inspection Medications Medications Current Medications Ondansetron HCl (Zofran Inj) 4 mg Q6H PRN IV NAUSEA AND/OR VOMITING; Start 03/27/18 at 20:00 Acetaminophen (Tylenol Tab) 650 mg Q6H PRN PO PAIN LEVEL 1-3 OR FEVER Last administered on 04/09/18 20:05; Admin Dose 650 MG; Start 03/27/18 at 20:00 Collagenase (Santyl) 1 applic DAILY TOP Last administered on 04/09/18 13:58; Admin Dose 1 APPLIC; Start 03/31/18 at 09:00 Mupirocin (Bactroban) 1 applic BID TOP Last administered on 04/09/18 20:07; Admin Dose 1 APPLIC; Start 03/31/18 at 11:00 Dextrose 1,000 ml @ 50 mls/hr Q20H IV Last administered on 04/10/18 00:38; Admin Dose 50 MLS/HR; Start 04/02/18 at 12:30 Pantoprazole (Protonix Iv) 40 mg BID@06,18 IV Last administered on 04/10/18 05:23; Admin Dose 40 MG; Start 04/02/18 at 18:00 Morphine Sulfate (morphine) 2 mg Q4H PRN IV PAIN LEVEL 7-10 Last administered on 04/05/18 21:59; Admin Dose 2 MG; Start 04/05/18 at 17:22 Midodrine (Proamatine) 10 mg BID PO Last administered on 1/9/19at 20:06; Admin Dose 10 MG; Start 04/07/18 at 21:00 Voriconazole (Vfend) 200 mg BID PO Last administered on 04/09/18at 20:06; Admin Dose 200 MG; Start 04/09/18 at 12:00 Ascorbic Acid (Vitamin C) 500 mg DAILY NGT Last administered on 04/09/18at 15:21; Admin Dose 500 MG; Start 04/09/18 at 14:00 Zinc Sulfate (Zinc Sulfate) 220 mg DAILY NGT ; Start 04/10/18 at 09:00 STEVEN BLANCO MD Apr 10, 2018 08:30
[2018-04-10] MEDS: VORICONAZOLE 200 MG TAB PO SCH ×2 (08:48→20:42)
[2018-04-10] MEDS: MIDODRINE 5 MG TAB PO SCH (08:48)
[2018-04-10] MEDS: ZINC SULFATE 220 MG CAP NGT SCH (08:48)
[2018-04-10] MEDS: MUPIROCIN 2% 22 GM OINT TOP SCH ×2 (08:48→20:42)
[2018-04-10] MEDS: ASCORBIC ACID 500 MG TAB NGT SCH (08:48)
[2018-04-10] MEDS: COLLAGENASE 5 GM (UD JAR) TOP SCH (08:49)
--- NOTE | 2018-04-10 11:30 | CONS ---
Date/Time of Note Date/Time of Note DATE: 04/10/18 TIME: 11:29 Consult Date/Type/Reason Admit Date/Time Mar 27, 2018 at 20:08 Initial Consult Date 03/29/18 Type of Consultation: Pulm/CCM Requesting Provider: DEENA BASILIO Subjective No changes Objective Vital Signs Date Temp Pulse Resp B/P (MAP) Pulse Ox O2 O2 Flow FiO2 Time Delivery Rate 04/10/18 100.0 84 20 117/58 95 11:20 (77) 04/10/18 Room Air 03:49 04/07/18 2.0 20:00 Intake and Output 04/09/18 04/09/18 04/10/18 1414:59 22:59 06:59 IntakeIntake Total 1550 ml 1500 ml OutputOutput Total 700 ml 320 ml BalanceBalance 850 ml 1180 ml Exam GENERAL: Frail elderly gentleman appears comfortable at rest VITAL SIGNS: per chart NECK: Supple. No JVD or lymphadenopathy. CARDIAC EXAM: S1, S2. No added sounds or murmurs. CHEST: Diminished air entry bilaterally few rales ABDOMEN: Soft, nontender. No guarding or rebound. EXTREMITIES: No cyanosis, clubbing or edema. NEUROLOGIC: Generalized weakness. No focal deficits. Results/Medications Result Diagram: 04/10/18 0543 04/10/18 0543 Results 24 hrs Laboratory Tests Test 04/10/18 05:43 White Blood Count 22.1 #H Red Blood Count 3.17 L Hemoglobin 9.0 L Hematocrit 28.7 L Mean Corpuscular Volume 90.5 Mean Corpuscular Hemoglobin 28.4 L Mean Corpuscular Hemoglobin Concent 31.4 L Red Cell Distribution Width 16.5 H Platelet Count 183 Mean Platelet Volume 13.7 H Immature Granulocytes % 0.700 H Neutrophils % 87.1 H Lymphocytes % 7.3 L Monocytes % 4.3 Eosinophils % 0.3 Basophils % 0.3 Nucleated Red Blood Cells % 0.0 Immature Granulocytes # 0.150 H Neutrophils # 19.3 H Lymphocytes # 1.6 Monocytes # 1.0 H Eosinophils # 0.1 Basophils # 0.1 Nucleated Red Blood Cells # 0.0 Sodium Level 141 Potassium Level 3.8 Chloride Level 108 Carbon Dioxide Level 25 Anion Gap 8 Blood Urea Nitrogen 24 H Creatinine 0.81 Est Glomerular Filtrat Rate mL/min Glucose Level 109 Calcium Level 7.2 L Medications Current Medications Ondansetron HCl (Zofran Inj) 4 mg Q6H PRN IV NAUSEA AND/OR VOMITING; Start 03/27/18 at 20:00 Acetaminophen (Tylenol Tab) 650 mg Q6H PRN PO PAIN LEVEL 1-3 OR FEVER Last administered on 04/09/18 20:05; Admin Dose 650 MG; Start 03/27/18 at 20:00 Collagenase (Santyl) 1 applic DAILY TOP Last administered on 04/10/18 08:49; Admin Dose 1 APPLIC; Start 03/31/18 at 09:00 Mupirocin (Bactroban) 1 applic BID TOP Last administered on 04/10/18 08:48; Admin Dose 1 APPLIC; Start 03/31/18 at 11:00 Pantoprazole (Protonix Iv) 40 mg BID@06,18 IV Last administered on 04/10/18 05:23; Admin Dose 40 MG; Start 04/02/18 at 18:00 Morphine Sulfate (morphine) 2 mg Q4H PRN IV PAIN LEVEL 7-10 Last administered on 04/05/18 21:59; Admin Dose 2 MG; Start 04/05/18 at 17:22 Midodrine (Proamatine) 10 mg BID PO Last administered on 04/10/18 08:48; Admin Dose 10 MG; Start 04/07/18 at 21:00 Voriconazole (Vfend) 200 mg BID PO Last administered on 04/10/18 08:48; Admin Dose 200 MG; Start 04/09/18 at 12:00 Ascorbic Acid (Vitamin C) 500 mg DAILY NGT Last administered on 04/10/18 08:48; Admin Dose 500 MG; Start 04/09/18 at 14:00 Zinc Sulfate (Zinc Sulfate) 220 mg DAILY NGT Last administered on 04/10/18 08:48; Admin Dose 220 MG; Start 04/10/18 at 09:00 Assessment/Plan Chief Complaint/Hosp Course IMP: 1. s/p Respiratory Failure--with hypoxemic component. Tachypnea likely due to metabolic acidosis 2/2 FLORES respiratory status improved 2. Urinary tract infection with septic shock--improved. 3. FLORES--likely pre-renal vs.ATN 4. Metabolic Acidosis 2/2 #3--improved 5. AMS--Dementia and uremia 6. HyperNa+ 7. s/p GI bleed RECS: 1. Continue midodrine 10 mg Q 8 2. Monitor off vasopressors 3. Aspiration precautions, free water 4. Follow H/H 5. Aspiration precautions may require PEG tube placement. Speech therapy recs Consider addressing CODE STATUS given comorbidities transfer to med surg ? BARBIE SAEED MD, [facility] Apr 10, 2018 11:29
--- NOTE | 2018-04-10 12:13 | CONS ---
Date/Time of Note Date/Time of Note DATE: 04/10/18 TIME: 12:13 Assessment/Plan Assessment/Plan Hospital Course Low-grade fevers with a T-max of 100.5. WBC went up to 22.1, neutrophils 87.1 BUN 24 creatinine 0.81 Indwelling: NG tube right subclavian triple-lumen catheter, Honeycutt Physical examination: Well-developed chronically ill-appearing wasted elderly man who is in no distress. Head atraumatic normocephalic sclera nonicteric. Neck is supple chest rise symmetrical breath sounds diminished bases. Heart: S1-S2 abdomen distended tender on palpation extremities without cyanosis Assessment: 1. Persistent leukocytosis, status post septic shock 2. Status post GI bleeding===> EGD with Hemoclip placement 3. S/p E. coli ESBL UTI, now + yeast 4. MRSA nares colonization 5. Dysphagia 6. Dementia Plan: Patient is clinically unchanged, ff antibiotics since yesterday we will repeat chest x-ray in a.m., repeat urine culture, continue present care and aspiration precautions KAREN RN Result Diagram: 04/10/18 0543 04/10/18 0543 Results 24hrs Laboratory Tests Test 04/10/18 05:43 White Blood Count 22.1 #H Red Blood Count 3.17 L Hemoglobin 9.0 L Hematocrit 28.7 L Mean Corpuscular Volume 90.5 Mean Corpuscular Hemoglobin 28.4 L Mean Corpuscular Hemoglobin Concent 31.4 L Red Cell Distribution Width 16.5 H Platelet Count 183 Mean Platelet Volume 13.7 H Immature Granulocytes % 0.700 H Neutrophils % 87.1 H Lymphocytes % 7.3 L Monocytes % 4.3 Eosinophils % 0.3 Basophils % 0.3 Nucleated Red Blood Cells % 0.0 Immature Granulocytes # 0.150 H Neutrophils # 19.3 H Lymphocytes # 1.6 Monocytes # 1.0 H Eosinophils # 0.1 Basophils # 0.1 Nucleated Red Blood Cells # 0.0 Sodium Level 141 Potassium Level 3.8 Chloride Level 108 Carbon Dioxide Level 25 Anion Gap 8 Blood Urea Nitrogen 24 H Creatinine 0.81 Est Glomerular Filtrat Rate mL/min Glucose Level 109 Calcium Level 7.2 L Consultation Date/Type/Reason Admit Date/Time Mar 27, 2018 at 20:08 Initial Consult Date 04/02/18 Type of Consult ID Requesting Provider: DEENA BASILIO Exam/Review of Systems Vital Signs Vitals Vital Signs Date Temp Pulse Resp B/P (MAP) Pulse Ox O2 O2 Flow FiO2 Time Delivery Rate 04/10/18 100.0 84 20 117/58 95 11:20 (77) 04/10/18 Room Air 03:49 04/07/18 2.0 20:00 Intake and Output 04/09/18 04/09/18 04/10/18 1515:00 23:00 07:00 IntakeIntake Total 1550 ml 1500 ml OutputOutput Total 700 ml 320 ml BalanceBalance 850 ml 1180 ml Medications Medications Current Medications Ondansetron HCl (Zofran Inj) 4 mg Q6H PRN IV NAUSEA AND/OR VOMITING; Start 03/27/18 at 20:00 Acetaminophen (Tylenol Tab) 650 mg Q6H PRN PO PAIN LEVEL 1-3 OR FEVER Last administered on 04/09/18 20:05; Admin Dose 650 MG; Start 03/27/18 at 20:00 Collagenase (Santyl) 1 applic DAILY TOP Last administered on 04/10/18 08:49; Admin Dose 1 APPLIC; Start 03/31/18 at 09:00 Mupirocin (Bactroban) 1 applic BID TOP Last administered on 04/10/18 08:48; Admin Dose 1 APPLIC; Start 03/31/18 at 11:00 Pantoprazole (Protonix Iv) 40 mg BID@06,18 IV Last administered on 04/10/18 05:23; Admin Dose 40 MG; Start 04/02/18 at 18:00 Morphine Sulfate (morphine) 2 mg Q4H PRN IV PAIN LEVEL 7-10 Last administered on 04/05/18 21:59; Admin Dose 2 MG; Start 04/05/18 at 17:22 Midodrine (Proamatine) 10 mg BID PO Last administered on 04/10/18 08:48; Admin Dose 10 MG; Start 04/07/18 at 21:00 Voriconazole (Vfend) 200 mg BID PO Last administered on 04/10/18 08:48; Admin Dose 200 MG; Start 04/09/18 at 12:00 Ascorbic Acid (Vitamin C) 500 mg DAILY NGT Last administered on 04/10/18 08:48; Admin Dose 500 MG; Start 04/09/18 at 14:00 Zinc Sulfate (Zinc Sulfate) 220 mg DAILY NGT Last administered on 04/10/18at 08:48; Admin Dose 220 MG; Start 04/10/18 at 09:00 DAVONTE MCMAHAN NP Apr 10, 2018 12:13
--- NOTE | 2018-04-10 17:06 | PN ---
Date/Time of Note Date/Time of Note DATE: 04/10/18 TIME: 17:05 Assessment/Plan VTE Prophylaxis Risk score (from Nsg)>0 risk: 14 SCD applied (from Nsg): Yes Pharmacological prophylaxis: LMWH Lines/Catheters IV Catheter Type (from Nrsg): Central Line Central line still needed: No Urinary Cath still in place: Yes Reason Cath still needed: urinary retention Assessment/Plan Hospital Course Patient started on full liquid diet in addition to NG tube feeding, continue aspiration precaution. Okay to start midline if unable to obtain IV, DC central line per ID recommendations. Assessment/Plan -Anemia secondary to GI bleed. Dr. Gomes is following in GI consultation. Transfuse as needed, monitor hemoglobin and hematocrit. -Bleeding gastric ulcers, s/p hemostasis with placement of hemoclip during EGD by Dr Guallpa on 04/03/18. Continue Protonix. -S/p septic shock secondary to urinary tract infection, continue antibiotics per ID. Dr. Guzman is following in infection disease consultation. -Hypoxemic respiratory failure, resolving. Dr. Nam is following in pulmonology consultation. -Acute kidney injury, resolved. Dr. Senior following in nephrology consultation. -Hypernatremia, resolved. -MRSA of nares, continue Bactroban -Dementia -Multiple pressure ulcers, optimize nutrition, continue vitamin C and zinc sulfa te, off loading. -Protein calorie malnutrition Further recommendations based on clinical course. Plan of care discussed with Dr. Kiser. Result Diagram: 04/10/18 0543 04/10/18 0543 Results 24hrs Laboratory Tests Test 04/10/18 05:43 White Blood Count 22.1 #H Red Blood Count 3.17 L Hemoglobin 9.0 L Hematocrit 28.7 L Mean Corpuscular Volume 90.5 Mean Corpuscular Hemoglobin 28.4 L Mean Corpuscular Hemoglobin Concent 31.4 L Red Cell Distribution Width 16.5 H Platelet Count 183 Mean Platelet Volume 13.7 H Immature Granulocytes % 0.700 H Neutrophils % 87.1 H Lymphocytes % 7.3 L Monocytes % 4.3 Eosinophils % 0.3 Basophils % 0.3 Nucleated Red Blood Cells % 0.0 Immature Granulocytes # 0.150 H Neutrophils # 19.3 H Lymphocytes # 1.6 Monocytes # 1.0 H Eosinophils # 0.1 Basophils # 0.1 Nucleated Red Blood Cells # 0.0 Sodium Level 141 Potassium Level 3.8 Chloride Level 108 Carbon Dioxide Level 25 Anion Gap 8 Blood Urea Nitrogen 24 H Creatinine 0.81 Est Glomerular Filtrat Rate mL/min Glucose Level 109 Calcium Level 7.2 L Exam/Review of Systems Vital Signs Vitals Vital Signs Date Temp Pulse Resp B/P (MAP) Pulse Ox O2 O2 Flow FiO2 Time Delivery Rate 04/10/18 88 16:00 04/10/18 100.2 20 119/59 93 15:05 (79) 04/10/18 Room Air 03:49 04/07/18 2.0 20:00 Intake and Output 04/09/18 04/09/18 04/10/18 1515:00 23:00 07:00 IntakeIntake Total 1550 ml 1500 ml OutputOutput Total 700 ml 320 ml BalanceBalance 850 ml 1180 ml Exam Constitutional: alert Neck: supple Cardiovascular: regular rate and rhythm Gastrointestinal: soft, non-tender Genitourinary - Male: other (Honeycutt catheter) Skin: nl turgor Additional Comments Right chest triple lumen catheter Medications Medications Current Medications Ondansetron HCl (Zofran Inj) 4 mg Q6H PRN IV NAUSEA AND/OR VOMITING; Start 03/27/18 at 20:00 Acetaminophen (Tylenol Tab) 650 mg Q6H PRN PO PAIN LEVEL 1-3 OR FEVER Last administered on 04/09/18 20:05; Admin Dose 650 MG; Start 03/27/18 at 20:00 Collagenase (Santyl) 1 applic DAILY TOP Last administered on 04/10/18 08:49; Admin Dose 1 APPLIC; Start 03/31/18 at 09:00 Mupirocin (Bactroban) 1 applic BID TOP Last administered on 04/10/18 08:48; Admin Dose 1 APPLIC; Start 03/31/18 at 11:00 Pantoprazole (Protonix Iv) 40 mg BID@,18 IV Last administered on 04/10/18 05:23; Admin Dose 40 MG; Start 04/02/18 at 18:00 Morphine Sulfate (morphine) 2 mg Q4H PRN IV PAIN LEVEL 7-10 Last administered on 04/05/18 21:59; Admin Dose 2 MG; Start 04/05/18 at 17:22 Midodrine (Proamatine) 10 mg BID PO Last administered on 04/10/18 08:48; Admin Dose 10 MG; Start 04/07/18 at 21:00 Voriconazole (Vfend) 200 mg BID PO Last administered on 04/10/18 08:48; Admin Dose 200 MG; Start 04/09/18 at 12:00 Ascorbic Acid (Vitamin C) 500 mg DAILY NGT Last administered on 04/10/18 08:48; Admin Dose 500 MG; Start 04/09/18 at 14:00 Zinc Sulfate (Zinc Sulfate) 220 mg DAILY NGT Last administered on 04/10/18 08:48; Admin Dose 220 MG; Start 04/10/18 at 09:00 JUDY CORNEJO Apr 10, 2018 17:06
[2018-04-10] MEDS: ACETAMINOPHEN 325 MG TAB PO PRN (17:27)
[2018-04-10] MEDS: BALSAM PERU/CASTOR OIL 60 GM TUBE TOP SCH (20:43)
[2018-04-10] MEDS: MIDODRINE 2.5 MG TAB PO SCH (23:00)
[2018-04-11] VITALS (12 sets, daily range): BP systolic 103–122; BP diastolic 53–58; PULSE 56–83; RESP 16–20
[2018-04-11] MEDS: PANTOPRAZOLE 40 MG INJ IV SCH ×2 (05:44→17:56)
[2018-04-11] MEDS ORDERED: MIDODRINE 2.5 MG TAB PO SCH (09:00)
[2018-04-11] MEDS: ZINC SULFATE 220 MG CAP NGT SCH (09:11)
[2018-04-11] MEDS: VORICONAZOLE 200 MG TAB PO SCH ×2 (09:11→22:51)
[2018-04-11] MEDS: BALSAM PERU/CASTOR OIL 60 GM TUBE TOP SCH ×2 (09:11→22:51)
[2018-04-11] MEDS: MIDODRINE 2.5 MG TAB PO SCH (09:11)
[2018-04-11] MEDS: ASCORBIC ACID 500 MG TAB NGT SCH (09:11)
[2018-04-11] MEDS: COLLAGENASE 5 GM (UD JAR) TOP SCH (09:11)
[2018-04-11] MEDS: MUPIROCIN 2% 22 GM OINT TOP SCH ×2 (09:12→22:51)
--- NOTE | 2018-04-11 09:33 | PN ---
Date/Time of Note Date/Time of Note DATE: 04/11/18 TIME: 09:29 Assessment/Plan VTE Prophylaxis Risk score (from Ns)>0 risk: 7 SCD applied (from [facility] [place]): Yes Pharmacological prophylaxis: NA/contraindicated Pharm contraindication: bleeding Lines[facility] Central line still needed: Yes Urinary Cath still in place: Yes Reason Cath still needed: terminal illness/intractable pain Assessment/Plan Hospital Course 88 yo male presented with urosepsis and respiratory failure and coffee ground emesis 1. Upper GI bleed manifested through coffee ground emesis and melena -s/p EGD -resolved 2. Gastric ulcers, etiology of bleed 3. Hiatal hernia 4. Anemia secondary to gastric ulcer bleeding -stable but slowly trending down, 9.3->91->9.0 -monitor closely 5. E. coli, yeast (04/06) in urine, wbc trending down 6. Dysphagia 7. Malnutrition. 8. Leukocytosis -WBC have gone up, 15.4 to 22.1 Speech therapy: moderate oropharyngeal dysphagia associated with reduced orop haryngeal strength/coordination, delayed trigger of swallow and reduced mentation status. Compared to the previous session, the pt is showing progress with his overall swallowing function and now safe to initiate a full liquid diet but with continued NG tube feeds, due to concern for poor amount of p.o intake. Plan1. Continue Poc 2. Continue NG tube for primary means of nutrition and initiate full liquid diet ([place] thick liquids by teaspoon only and alternate with puree) 3. administer crushed medication followed by NTL by teaspoon only Plan: Monitor HH closely, no evidence of active GI bleeding, continue with PPI BID Consider PEG. Please let us know if primary would like us to place G tube No NSAIDs Monitor HH and transfuse as necessary Monitor for acute GI bleeding Pt examined and plan of care discussed with Dr. Gomes Result Diagram: 04/10/1843 04/10/18542 Subjective 24 Hr Interval Summary Free Text/Dictation Pt is much more alert today. Appropriately answers questions, interactive. 2 large bm yesterday, brown, no melena or hematochezia, no N/V. Denies abdominal pain. WBC have gone up from 15 to 22. Hgb 9, stable but slowly going down, will monitor.. 9.3->9.1->9.0. No evidence of GI bleeding. Tolerating tube feeds through NGT. Pt needs encouragement to eat. Exam/Review of Systems Vital Signs Vitals Vital Signs Date Temp Pulse Resp B/P (MAP) Pulse Ox O2 O2 Flow FiO2 Time Delivery Rate 04/11/18 69 08:00 04/11/18 97.7 20 103/58 98 07:14 (73) 04/10/18 Room Air 03:49 04/07/18 2.0 20:00 Intake and Output 04/10/18 04/10/18 04/11/18 1515:00 23:00 07:00 IntakeIntake Total 1200 ml 900 ml OutputOutput Total 650 ml 600 ml BalanceBalance 550 ml 300 ml Exam Constitutional: alert Psych: no complaints Head: normocephalic Eyes: nl sclera, PERRL Respiratory: clear to auscultation Cardiovascular: regular rate and rhythm Gastrointestinal: soft, non-tender Musculoskeletal: nl extremities to inspection Extremities: normal pulses Medications Medications Current Medications Ondansetron HCl (Zofran Inj) 4 mg Q6H PRN IV NAUSEA AND/OR VOMITING; Start 03/27/18 at 20:00 Acetaminophen (Tylenol Tab) 650 mg Q6H PRN PO PAIN LEVEL 1-3 OR FEVER Last administered on 04/10/18 17:27; Admin Dose 650 MG; Start 03/27/18 at 20:00 Collagenase (Santyl) 1 applic DAILY TOP Last administered on 04/11/18 09:11; Admin Dose 1 APPLIC; Start 03/31/18 at 09:00 Mupirocin (Bactroban) 1 applic BID TOP Last administered on 04/11/18 09:12; Admin Dose 1 APPLIC; Start 03/31/18 at 11:00 Pantoprazole (Protonix Iv) 40 mg BID@06,18 IV Last administered on 04/11/18 05:44; Admin Dose 40 MG; Start 04/02/18 at 18:00 Morphine Sulfate (morphine) 2 mg Q4H PRN IV PAIN LEVEL 7-10 Last administered on 04/05/18 21:59; Admin Dose 2 MG; Start 04/05/18 at 17:22 Voriconazole (Vfend) 200 mg BID PO Last administered on 04/11/18 09:11; Admin Dose 200 MG; Start 04/09/18 at 12:00 Ascorbic Acid (Vitamin C) 500 mg DAILY NGT Last administered on 04/11/18 09:11; Admin Dose 500 MG; Start 04/09/18 at 14:00 Zinc Sulfate (Zinc Sulfate) 220 mg DAILY NGT Last administered on 04/11/18 09:11; Admin Dose 220 MG; Start 04/10/18 at 09:00 Midodrine (Proamatine) 10 mg BID PO Last administered on 04/11/18 09:11; Admin Dose 10 MG; Start 04/10/18 at 22:02 SOREN DOVE Apr 11, 2018 09:33
--- NOTE | 2018-04-11 10:45 | CONS ---
Date/Time of Note Date/Time of Note DATE: 04/11/18 TIME: 10:44 Consult Date/Type/Reason Admit Date/Time Mar 27, 2018 at 20:08 Initial Consult Date 03/29/18 Type of Consultation: Pulm/CCM Requesting Provider: DEENA BASILIO Subjective No significant changes remains frail Objective Vital Signs Date Temp Pulse Resp B/P (MAP) Pulse Ox O2 O2 Flow FiO2 Time Delivery Rate 04/11/18 69 08:00 04/11/18 97.7 20 103/58 98 07:14 (73) 04/10/18 Room Air 03:49 04/07/18 2.0 20:00 Intake and Output 04/10/18 04/10/18 04/11/18 1515:00 23:00 07:00 IntakeIntake Total 1200 ml 900 ml OutputOutput Total 650 ml 600 ml BalanceBalance 550 ml 300 ml Exam GENERAL: Frail elderly gentleman appears comfortable at rest VITAL SIGNS: per chart NECK: Supple. No JVD or lymphadenopathy. CARDIAC EXAM: S1, S2. No added sounds or murmurs. CHEST: Diminished air entry bilaterally few rales ABDOMEN: Soft, nontender. No guarding or rebound. EXTREMITIES: No cyanosis, clubbing or edema. NEUROLOGIC: Generalized weakness. No focal deficits. Results/Medications Result Diagram: 04/10/18 0543 04/10/18 0543 Medications Current Medications Ondansetron HCl (Zofran Inj) 4 mg Q6H PRN IV NAUSEA AND/OR VOMITING; Start 03/27/18 at 20:00 Acetaminophen (Tylenol Tab) 650 mg Q6H PRN PO PAIN LEVEL 1-3 OR FEVER Last administered on 04/10/18at 17:27; Admin Dose 650 MG; Start 03/27/18 at 20:00 Collagenase (Santyl) 1 applic DAILY TOP Last administered on 04/11/18at 09:11; Admin Dose 1 APPLIC; Start 03/31/18 at 09:00 Mupirocin (Bactroban) 1 applic BID TOP Last administered on 04/11/18at 09:12; Admin Dose 1 APPLIC; Start 03/31/18 at 11:00 Pantoprazole (Protonix Iv) 40 mg BID@,18 IV Last administered on 04/11/18at 05:44; Admin Dose 40 MG; Start 04/02/18 at 18:00 Morphine Sulfate (morphine) 2 mg Q4H PRN IV PAIN LEVEL 7-10 Last administered on 04/05/18 21:59; Admin Dose 2 MG; Start 04/05/18 at 17:22 Voriconazole (Vfend) 200 mg BID PO Last administered on 04/11/18 09:11; Admin Dose 200 MG; Start 04/09/18 at 12:00 Ascorbic Acid (Vitamin C) 500 mg DAILY NGT Last administered on 04/11/18 09 :11; Admin Dose 500 MG; Start 04/09/18 at 14:00 Zinc Sulfate (Zinc Sulfate) 220 mg DAILY NGT Last administered on 04/11/18 09:11; Admin Dose 220 MG; Start 04/10/18 at 09:00 Midodrine (Proamatine) 10 mg BID PO Last administered on 04/11/18 09:11; Admin Dose 10 MG; Start 04/10/18 at 22:02 Assessment/Plan Chief Complaint/Hosp Course IMP: 1. s/p Respiratory Failure--with hypoxemic component. Tachypnea likely due to metabolic acidosis 2/2 FLORES respiratory status improved 2. Urinary tract infection with septic shock--improved. 3. FLORES--likely pre-renal vs.ATN 4. Metabolic Acidosis 2/2 #3--improved 5. AMS--Dementia and uremia 6. HyperNa+ 7. s/p GI bleed RECS: 1. Continue midodrine 10 mg Q 8 2. Monitor off vasopressors 3. Aspiration precautions, free water 4. Follow H/H 5. Aspiration precautions may require PEG tube placement. Speech therapy recs Consider addressing CODE STATUS given comorbidities Consider BARBIE Bullock MD, [facility] Apr 11, 2018 10:45
--- NOTE | 2018-04-11 14:00 | CONS ---
Date/Time of Note Date/Time of Note DATE: 04/11/18 TIME: 14:00 Assessment/Plan Assessment/Plan Assessment/Plan 1. Acute kidney injury on CKD due to ATN + prerenal azotemia 2. acute blood loss anemia- 3. acute hyperkalemia- now resolved 4. acute hypoxemic resp failure 5. Sepsis due to acute UTI 6. Severe metabolic acidosis due to FLORES 7. Hypernatremia 8. 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.8 x 6.7 x 8.3 cm will follow up Result Diagram: 04/10/18 0543 04/10/18 0543 Consultation Date/Type/Reason Admit Date/Time Mar 27, 2018 at 20:08 Initial Consult Date 03/31/18 Type of Consult NEPHROLOGY Requesting Provider: DEENA BASILIO Exam/Review of Systems Vital Signs Vitals Vital Signs Date Temp Pulse Resp B/P (MAP) Pulse Ox O2 O2 Flow FiO2 Time Delivery Rate 04/11/18 56 12:01 04/11/18 97.7 20 111/53 99 11:22 (72) 04/10/18 Room Air 03:49 04/07/18 2.0 20:00 Intake and Output 04/10/18 04/10/18 04/11/18 1414:59 22:59 06:59 IntakeIntake Total 1200 ml 900 ml OutputOutput Total 650 ml 600 ml BalanceBalance 550 ml 300 ml Exam Constitutional: alert Psych: no complaints Head: normocephalic ENMT: nl external ears & nose Neck: supple, non-tender Respiratory: clear to auscultation, normal air movement, diminished breath sounds Cardiovascular: regular rate and rhythm, nl pulses Gastrointestinal: soft, non-tender Musculoskeletal: nl extremities to inspection Medications Medications Current Medications Ondansetron HCl (Zofran Inj) 4 mg Q6H PRN IV NAUSEA AND/OR VOMITING; Start 03/27/18 at 20:00 Acetaminophen (Tylenol Tab) 650 mg Q6H PRN PO PAIN LEVEL 1-3 OR FEVER Last administered on 04/10/18 17:27; Admin Dose 650 MG; Start 03/27/18 at 20:00 Collagenase (Santyl) 1 applic DAILY TOP Last administered on 04/11/18 09:11; Admin Dose 1 APPLIC; Start 03/31/18 at 09:00 Mupirocin (Bactroban) 1 applic BID TOP Last administered on 04/11/18 09:12; Admin Dose 1 APPLIC; Start 03/31/18 at 11:00 Pantoprazole (Protonix Iv) 40 mg BID@18 IV Last administered on 04/11/18 05:44; Admin Dose 40 MG; Start 04/02/18 at 18:00 Morphine Sulfate (morphine) 2 mg Q4H PRN IV PAIN LEVEL 7-10 Last administered on 04/05/18 21:59; Admin Dose 2 MG; Start 04/05/18 at 17:22 Voriconazole (Vfend) 200 mg BID PO Last administered on 04/11/18 09:11; Admin Dose 200 MG; Start 04/09/18 at 12:00 Ascorbic Acid (Vitamin C) 500 mg DAILY NGT Last administered on 04/11/18 09:11; Admin Dose 500 MG; Start 04/09/18 at 14:00 Zinc Sulfate (Zinc Sulfate) 220 mg DAILY NGT Last administered on 04/11/18 09:11; Admin Dose 220 MG; Start 04/10/18 at 09:00 Midodrine (Proamatine) 10 mg BID PO Last administered on 04/11/18 09:11; Admin Dose 10 MG; Start 04/10/18 at 22:02 STEVEN BLANCO MD Apr 11, 2018 14:00
--- NOTE | 2018-04-11 14:43 | PN ---
Date/Time of Note Date/Time of Note DATE: 04/11/18 TIME: 14:43 Assessment/Plan VTE Prophylaxis Risk score (from [facility] [place])>0 risk: 11 SCD applied (from [facility] [place]): Yes Pharmacological prophylaxis: other Pharm contraindication: other Lines/Catheters IV Catheter Type (from Nrsg): Central Line Central line still needed: Yes Urinary Cath still in place: Yes Reason Cath still needed: urinary retention Assessment/Plan Result Diagram: 04/10/1843 04/10/18542 Exam/Review of Systems Vital Signs Vitals Vital Signs Date Temp Pulse Resp B/P (MAP) Pulse Ox O2 O2 Flow FiO2 Time Delivery Rate 04/11/18 56 12:01 04/11/18 97.7 20 111/53 99 11:22 (72) 04/10/18 Room Air 03:49 04/07/18 2.0 20:00 Intake and Output 04/10/18 04/10/18 04/11/18 1515:00 23:00 07:00 IntakeIntake Total 1200 ml 900 ml OutputOutput Total 650 ml 600 ml BalanceBalance 550 ml 300 ml Medications Medications Current Medications Ondansetron HCl (Zofran Inj) 4 mg Q6H PRN IV NAUSEA AND/OR VOMITING; Start 03/27/18 at 20:00 Acetaminophen (Tylenol Tab) 650 mg Q6H PRN PO PAIN LEVEL 1-3 OR FEVER Last administered on 04/10/18at 17:27; Admin Dose 650 MG; Start 03/27/18 at 20:00 Collagenase (Santyl) 1 applic DAILY TOP Last administered on 04/11/18at 09:11; Admin Dose 1 APPLIC; Start 03/31/18 at 09:00 Mupirocin (Bactroban) 1 applic BID TOP Last administered on 04/11/18 09:12; Admin Dose 1 APPLIC; Start 03/31/18 at 11:00 Pantoprazole (Protonix Iv) 40 mg BID@,18 IV Last administered on 04/11/18at 0 5:44; Admin Dose 40 MG; Start 04/02/18 at 18:00 Morphine Sulfate (morphine) 2 mg Q4H PRN IV PAIN LEVEL 7-10 Last administered on 04/05/18at 21:59; Admin Dose 2 MG; Start 04/05/18 at 17:22 Voriconazole (Vfend) 200 mg BID PO Last administered on 04/11/18 09:11; Admin Dose 200 MG; Start 04/09/18 at 12:00 Ascorbic Acid (Vitamin C) 500 mg DAILY NGT Last administered on 04/11/18 09:11; Admin Dose 500 MG; Start 04/09/18 at 14:00 Zinc Sulfate (Zinc Sulfate) 220 mg DAILY NGT Last administered on 04/11/18 09:11; Admin Dose 220 MG; Start 04/10/18 at 09:00 Midodrine (Proamatine) 10 mg BID PO Last administered on 04/11/18 09:11; Admin Dose 10 MG; Start 04/10/18 at 22:02 MICHAEL ARZATE Apr 11, 2018 14:43
--- NOTE | 2018-04-11 15:23 | CONS ---
Date/Time of Note Date/Time of Note DATE: 04/11/18 TIME: 15:22 Assessment/Plan Assessment/Plan Hospital Course Awake, follows commands looks comfortable, afebrile. No labs today Indwelling: NG tube Honeycutt Physical examination: Well-developed chronically ill-appearing wasted elderly man who is in no distress. Head atraumatic normocephalic sclera nonicteric. Neck is supple chest rise symmetrical breath sounds diminished bases. Heart: S1-S2 abdomen distended tender on palpation extremities without cyanosis Assessment: 1. Persistent leukocytosis, status post septic shock 2. Status post GI bleeding===> EGD with Hemoclip placement 3. S/p E. coli ESBL UTI, now + yeast 4. MRSA nares colonization 5. Dysphagia 6. Dementia Plan: Stable, continue observing off antibiotics, reculture as needed, continue voriconazole Result Diagram: 04/10/18 0543 04/10/18 0543 Consultation Date/Type/Reason Admit Date/Time Mar 27, 2018 at 20:08 Initial Consult Date 04/02/18 Type of Consult ID Requesting Provider: DEENA BASILIO Exam/Review of Systems Vital Signs Vitals Vital Signs Date Temp Pulse Resp B/P (MAP) Pulse Ox O2 O2 Flow FiO2 Time Delivery Rate 04/11/18 56 12:01 04/11/18 97.7 20 111/53 99 11:22 (72) 04/10/18 Room Air 03:49 04/07/18 2.0 20:00 Intake and Output 04/10/18 04/10/18 04/11/18 1515:00 23:00 07:00 IntakeIntake Total 1200 ml 900 ml OutputOutput Total 650 ml 600 ml BalanceBalance 550 ml 300 ml Medications Medications Current Medications Ondansetron HCl (Zofran Inj) 4 mg Q6H PRN IV NAUSEA AND/OR VOMITING; Start 03/27/18 at 20:00 Acetaminophen (Tylenol Tab) 650 mg Q6H PRN PO PAIN LEVEL 1-3 OR FEVER Last administered on 04/10/18at 17:27; Admin Dose 650 MG; Start 03/27/18 at 20:00 Collagenase (Santyl) 1 applic DAILY TOP Last administered on 04/11/18at 09:11; Admin Dose 1 APPLIC; Start 03/31/18 at 09:00 Mupirocin (Bactroban) 1 applic BID TOP Last administered on 04/11/18 09:12; Admin Dose 1 APPLIC; Start 03/31/18 at 11:00 Pantoprazole (Protonix Iv) 40 mg BID@,18 IV Last administered on 04/11/18 05:44; Admin Dose 40 MG; Start 04/02/18 at 18:00 Morphine Sulfate (morphine) 2 mg Q4H PRN IV PAIN LEVEL 7-10 Last administered on 04/05/18 21:59; Admin Dose 2 MG; Start 04/05/18 at 17:22 Voriconazole (Vfend) 200 mg BID PO Last administered on 04/11/18 09:11; Admin Dose 200 MG; Start 04/09/18 at 12:00 Ascorbic Acid (Vitamin C) 500 mg DAILY NGT Last administered on 04/11/18 09:11; Admin Dose 500 MG; Start 04/09/18 at 14:00 Zinc Sulfate (Zinc Sulfate) 220 mg DAILY NGT Last administered on 04/11/18 09:11; Admin Dose 220 MG; Start 04/10/18 at 09:00 Midodrine (Proamatine) 10 mg BID PO Last administered on 04/11/18 09:11; Admin Dose 10 MG; Start 04/10/18 at 22:02 DAVONTE MCMAHAN NP Apr 11, 2018 15:23
[2018-04-12] VITALS (11 sets, daily range): BP systolic 109–134; BP diastolic 53–63; PULSE 69–80; RESP 17–20
[2018-04-12] MEDS: MIDODRINE 2.5 MG TAB PO SCH ×3 (00:25→20:25)
[2018-04-12] MEDS: PANTOPRAZOLE 40 MG INJ IV SCH ×2 (06:10→17:22)
[2018-04-12] MEDS: ZINC SULFATE 220 MG CAP NGT SCH (09:16)
[2018-04-12] MEDS: ASCORBIC ACID 500 MG TAB NGT SCH (09:16)
[2018-04-12] MEDS: VORICONAZOLE 200 MG TAB PO SCH ×2 (09:16→20:24)
[2018-04-12] MEDS: MUPIROCIN 2% 22 GM OINT TOP SCH ×2 (09:19→20:26)
[2018-04-12] MEDS: COLLAGENASE 5 GM (UD JAR) TOP SCH (09:19)
[2018-04-12] MEDS: BALSAM PERU/CASTOR OIL 60 GM TUBE TOP SCH ×2 (09:19→20:25)
--- NOTE | 2018-04-12 11:07 | CONS ---
Date/Time of Note Date/Time of Note DATE: 04/12/18 TIME: 11:06 Assessment/Plan Assessment/Plan Assessment/Plan Hospital Course 88 yo male presented with urosepsis and respiratory failure and coffee ground emesis 1. Upper GI bleed manifested through coffee ground emesis and melena -s/p EGD -resolved 2. Gastric ulcers, etiology of bleed 3. Hiatal hernia 4. Anemia secondary to gastric ulcer bleeding -stable but slowly trending down, 9.3->91->9.0 -monitor closely 5. E. coli, yeast (1/6) in urine, wbc trending down 6. Dysphagia 7. Malnutrition. 8. Leukocytosis -WBC have gone up, 15.4 to 22.1 Speech therapy: moderate oropharyngeal dysphagia associated with reduced oropharyngeal strength/coordination, delayed trigger of swallow and reduced mentation status. Compared to the previous session, the pt is showing progress with his overall swallowing function and now safe to initiate a full liquid diet but with continued NG tube feeds, due to concern for poor amount of p.o intake. Plan1. Continue Poc 2. Continue NG tube for primary means of nutrition and initiate full liquid diet ([place] thick liquids by teaspoon only and alternate with puree) 3. administer crushed medication followed by NTL by teaspoon only Plan: Monitor HH closely, no evidence of active GI bleeding, continue with PPI BID Consider PEG. Patient's appears high risk for the aspiration No NSAIDs Monitor HH and transfuse as necessary Monitor for acute GI bleeding Result Diagram: 04/10/18 0543 04/10/18 0543 Consultation Date/Type/Reason Admit Date/Time Mar 27, 2018 at 20:08 Initial Consult Date 04/02/18 Requesting Provider: DEENA BASILIO 24 HR Interval Summary Constitutional: disoriented, poor po Exam/Review of Systems Vital Signs Vitals Vital Signs Date Temp Pulse Resp B/P (MAP) Pulse Ox O2 O2 Flow FiO2 Time Delivery Rate 04/12/18 70 08:01 04/12/18 98.0 18 109/55 99 07:14 (73) 04/12/18 Nasal 04:03 Cannula Intake and Output 04/11/18 04/11/18 04/12/18 1515:00 23:00 07:00 IntakeIntake Total 1070 ml 925 ml OutputOutput Total 850 ml 400 ml BalanceBalance 220 ml 525 ml Exam Psych: no complaints, nl mood/affect Head: No normocephalic, No atraumatic, No lacerations, No hematomas, No other Eyes: nl conjunctiva, EOMI, nl lids, nl sclera, PERRL Respiratory: clear to auscultation, normal air movement Cardiovascular: regular rate and rhythm, nl pulses Medications Medications Current Medications Ondansetron HCl (Zofran Inj) 4 mg Q6H PRN IV NAUSEA AND/OR VOMITING; Start 03/27/18 at 20:00 Acetaminophen (Tylenol Tab) 650 mg Q6H PRN PO PAIN LEVEL 1-3 OR FEVER Last administered on 04/10/18 17:27; Admin Dose 650 MG; Start 03/27/18 at 20:00 Collagenase (Santyl) 1 applic DAILY TOP Last administered on 04/12/18 09:19; Admin Dose 1 APPLIC; Start 03/31/18 at 09:00 Mupirocin (Bactroban) 1 applic BID TOP Last administered on 04/12/18 09:19; Admin Dose 1 APPLIC; Start 03/31/18 at 11:00 Pantoprazole (Protonix Iv) 40 mg BID@06,18 IV Last administered on 04/12/18 06:10; Admin Dose 40 MG; Start 04/02/18 at 18:00 Morphine Sulfate (morphine) 2 mg Q4H PRN IV PAIN LEVEL 7-10 Last administered o n 04/05/18 21:59; Admin Dose 2 MG; Start 04/05/18 at 17:22 Voriconazole (Vfend) 200 mg BID PO Last administered on 04/12/18 09:16; Admin Dose 200 MG; Start 04/09/18 at 12:00 Ascorbic Acid (Vitamin C) 500 mg DAILY NGT Last administered on 04/12/18 09:16; Admin Dose 500 MG; Start 04/09/18 at 14:00 Zinc Sulfate (Zinc Sulfate) 220 mg DAILY NGT Last administered on 04/12/18 09:16; Admin Dose 220 MG; Start 04/10/18 at 09:00 Midodrine (Proamatine) 10 mg BID PO Last administered on 04/12/18 09:16; Admin Dose 10 MG; Start 04/10/18 at 22:02 ATTILA UMANZOR MD 12, 2019 11:07
--- NOTE | 2018-04-12 11:14 | PN ---
Date/Time of Note Date/Time of Note DATE: 04/12/18 TIME: 11:13 Assessment/Plan VTE Prophylaxis Risk score (from Ns)>0 risk: 5 SCD applied (from Ns): Yes Pharmacological prophylaxis: LMWH Lines/Catheters IV Catheter Type (from Nrs): Saline Lock Urinary Cath still in place: Yes Reason Cath still needed: skin wounds contaminated by urine Assessment/Plan Hospital Course -Anemia secondary to GI bleed. Dr. Gomes is following in GI consultation. Transfuse as needed, monitor hemoglobin and hematocrit. -Bleeding gastric ulcers, s/p hemostasis with placement of hemoclip during EGD by Dr Guallpa on 04/03/18. Continue Protonix. -S/p septic shock secondary to urinary tract infection, continue antibiotics per ID. Dr. Guzman is following in infection disease consultation. -Hypoxemic respiratory failure, resolving. Dr. Nam is following in pulmonology consultation. -Acute kidney injury, resolved. Dr. Senior following in nephrology consultation. -Hypernatremia, resolved. -MRSA of nares, continue Bactroban -Dementia -Multiple pressure ulcers, optimize nutrition, continue vitamin C and zinc sulfate, off loading. -Protein calorie malnutrition Result Diagram: 04/10/18 0543 04/10/18 0543 Subjective 24 Hr Interval Summary Free Text/Dictation Patient awake, states he's doing well Exam/Review of Systems Vital Signs Vitals Vital Signs Date Temp Pulse Resp B/P (MAP) Pulse Ox O2 O2 Flow FiO2 Time Delivery Rate 04/12/18 70 08:01 04/12/18 98.0 18 109/55 99 07:14 (73) 04/12/18 Nasal 04:03 Cannula Intake and Output 04/11/18 04/11/18 04/12/18 1515:00 23:00 07:00 IntakeIntake Total 1070 ml 925 ml OutputOutput Total 850 ml 400 ml BalanceBalance 220 ml 525 ml Exam Constitutional: well developed Head: normocephalic, atraumatic Neck: supple Respiratory: diminished breath sounds Cardiovascular: regular rate and rhythm Gastrointestinal: soft, non-tender Extremities: normal pulses Medications Medications Current Medications Ondansetron HCl (Zofran Inj) 4 mg Q6H PRN IV NAUSEA AND/OR VOMITING; Start 03/27/18 at 20:00 Acetaminophen (Tylenol Tab) 650 mg Q6H PRN PO PAIN LEVEL 1-3 OR FEVER Last administered on 04/10/18 17:27; Admin Dose 650 MG; Start 03/27/18 at 20:00 Collagenase (Santyl) 1 applic DAILY TOP Last administered on 04/12/18 09:19; Admin Dose 1 APPLIC; Start 03/31/18 at 09:00 Mupirocin (Bactroban) 1 applic BID TOP Last administered on 04/12/18 09:19; Admin Dose 1 APPLIC; Start 03/31/18 at 11:00 Pantoprazole (Protonix Iv) 40 mg BID@18 IV Last administered on 04/12/18 06:10; Admin Dose 40 MG; Start 04/02/18 at 18:00 Morphine Sulfate (morphine) 2 mg Q4H PRN IV PAIN LEVEL 7-10 Last administered on 04/05/18 21:59; Admin Dose 2 MG; Start 04/05/18 at 17:22 Voriconazole (Vfend) 200 mg BID PO Last administered on 04/12/18 09:16; Admin Dose 200 MG; Start 04/09/18 at 12:00 Ascorbic Acid (Vitamin C) 500 mg DAILY NGT Last administered on 04/12/18 09:16; Admin Dose 500 MG; Start 04/09/18 at 14:00 Zinc Sulfate (Zinc Sulfate) 220 mg DAILY NGT Last administered on 04/12/18 09:16; Admin Dose 220 MG; Start 04/10/18 at 09:00 Midodrine (Proamatine) 10 mg BID PO Last administered on 04/12/18 09:16; Admin Dose 10 MG; Start 04/10/18 at 22:02 DEENA BASILIO Apr 12, 2018 11:14
--- NOTE | 2018-04-12 12:30 | CONS ---
Date/Time of Note Date/Time of Note DATE: 04/12/18 TIME: 12:29 Assessment/Plan Assessment/Plan Assessment/Plan 1. Acute kidney injury on CKD due to ATN + prerenal azotemia 2. acute blood loss anemia- 3. acute hyperkalemia- now resolved 4. acute hypoxemic resp failure 5. Sepsis due to acute UTI 6. Severe metabolic acidosis due to FLORES 7. Hypernatremia 8. 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 staff. Result Diagram: 04/10/18 0543 04/10/18 0543 Consultation Date/Type/Reason Admit Date/Time Mar 27, 2018 at 20:08 Initial Consult Date 04/02/18 Type of Consult nephrology Requesting Provider: DEENA BASILIO 24 HR Interval Summary Free Text/Dictation nad wbc 22.1- id follows uo- 1.2 L /24hr no new events reported over night per staff Subjective hx not possible: pt non-verbal Constitutional: requiring O2 Exam/Review of Systems Vital Signs Vitals Vital Signs Date Temp Pulse Resp B/P (MAP) Pulse Ox O2 O2 Flow FiO2 Time Delivery Rate 04/12/18 98.6 73 18 122/56 96 11:26 (78) 04/12/18 Nasal 04:03 Cannula Intake and Output 04/11/18 04/11/18 04/12/18 1414:59 22:59 06:59 IntakeIntake Total 1070 ml 925 ml OutputOutput Total 850 ml 400 ml BalanceBalance 220 ml 525 ml Exam Constitutional: alert, well developed, frail Psych: nl mood/affect Head: atraumatic Eyes: nl conjunctiva, EOMI, nl lids ENMT: nl external ears & nose Neck: non-tender Respiratory: diminished breath sounds (at bases) Cardiovascular: nl pulses, other (s1s2) Gastrointestinal: soft, non-tender Musculoskeletal: muscle weakness, range of motion Extremities: normal pulses Neurological: other (alert/awake) Lymph: nontender Medications Medications Current Medications Ondansetron HCl (Zofran Inj) 4 mg Q6H PRN IV NAUSEA AND/OR VOMITING; Start 03/27/18 at 20:00 Acetaminophen (Tylenol Tab) 650 mg Q6H PRN PO PAIN LEVEL 1-3 OR FEVER Last administered on 04/10/18 17:27; Admin Dose 650 MG; Start 03/27/18 at 20:00 Collagenase (Santyl) 1 applic DAILY TOP Last administered on 04/12/18 09:19; Admin Dose 1 APPLIC; Start 03/31/18 at 09:00 Mupirocin (Bactroban) 1 applic BID TOP Last administered on 04/12/18 09:19; Admin Dose 1 APPLIC; Start 03/31/18 at 11:00 Pantoprazole (Protonix Iv) 40 mg BID@,18 IV Last administered on 04/12/18 06:10; Admin Dose 40 MG; Start 04/02/18 at 18:00 Morphine Sulfate (morphine) 2 mg Q4H PRN IV PAIN LEVEL 7-10 Last administered on 04/05/18 21:59; Admin Dose 2 MG; Start 04/05/18 at 17:22 Voriconazole (Vfend) 200 mg BID PO Last administered on 04/12/18 09:16; Admin Dose 200 MG; Start 04/09/18 at 12:00 Ascorbic Acid (Vitamin C) 500 mg DAILY NGT Last administered on 04/12/18 09:16; Admin Dose 500 MG; Start 04/09/18 at 14:00 Zinc Sulfate (Zinc Sulfate) 220 mg DAILY NGT Last administered on 04/12/18 09:16; Admin Dose 220 MG; Start 04/10/18 at 09:00 Midodrine (Proamatine) 10 mg BID PO Last administered on 04/12/18 09:16; Admin Dose 10 MG; Start 04/10/18 at 22:02 MICHAEL ARZATE Apr 12, 2018 12:30
--- NOTE | 2018-04-12 13:05 | CONS ---
Date/Time of Note Date/Time of Note DATE: 04/12/18 TIME: 12:58 Assessment/Plan Assessment/Plan Result Diagram: 04/10/18 0543 04/10/18 0543 Consultation Date/Type/Reason Admit Date/Time Mar 27, 2018 at 20:08 Initial Consult Date SUBJECTIVE: Pt is sleepy, with NG tube intact. NO fevers. Looks comfortable. VS: stable. T: 98.6 LABS: reviewed. None today. CXR today: IMPRESSION: 1. Enteric tube in stomach 2. Left greater than right bibasilar infiltrates or atelectasis and small left pleural effusion 3. Mild cardiomegaly and atherosclerotic vascular disease Indwelling: NG tube Honeycutt Physical examination: GEN: Well-developed chronically ill-appearing wasted elderly man who is in no distress. HENT: Head atraumatic normocephalic sclera nonicteric. Neck is supple PULM: chest rise symmetrical, breath sounds diminished bases. Heart: S1-S2 ABDOEN: distended tender on palpation EXTREM: without cyanosis Assessment: 1. Persistent leukocytosis, status post septic shock 2. Status post GI bleeding===> EGD with Hemoclip placement 3. S/p E. coli ESBL UTI, now + yeast 4. MRSA nares colonization 5. Dysphagia 6. Dementia 7. Multiple pressure ulcers 8. PNA Plan: Patient is stable. Continue observing off antibiotics. Continue voriconazole. CXR today noted. Ordered CBC and BMP for AM Requesting Provider: DEENA BASILIO Exam/Review of Systems Vital Signs Vitals Vital Signs Date Temp Pulse Resp B/P (MAP) Pulse Ox O2 O2 Flow FiO2 Time Delivery Rate 04/12/18 98.6 73 18 122/56 96 11:26 (78) 04/12/18 Nasal 04:03 Cannula Intake and Output 04/11/18 04/11/18 04/12/18 1414:59 22:59 06:59 IntakeIntake Total 1070 ml 925 ml OutputOutput Total 850 ml 400 ml BalanceBalance 220 ml 525 ml Medications Medications Current Medications Ondansetron HCl (Zofran Inj) 4 mg Q6H PRN IV NAUSEA AND/OR VOMITING; Start 03/27/18 at 20:00 Acetaminophen (Tylenol Tab) 650 mg Q6H PRN PO PAIN LEVEL 1-3 OR FEVER Last administered on 04/10/18 17:27; Admin Dose 650 MG; Start 03/27/18 at 20:00 Collagenase (Santyl) 1 applic DAILY TOP Last administered on 04/12/18 09:19; Admin Dose 1 APPLIC; Start 03/31/18 at 09:00 Mupirocin (Bactroban) 1 applic BID TOP Last administered on 04/12/18 09:19; Admin Dose 1 APPLIC; Start 03/31/18 at 11:00 Pantoprazole (Protonix Iv) 40 mg BID@,18 IV Last administered on 04/12/18 06:10; Admin Dose 40 MG; Start 04/02/18 at 18:00 Morphine Sulfate (morphine) 2 mg Q4H PRN IV PAIN LEVEL 7-10 Last administered on 04/05/18 21:59; Admin Dose 2 MG; Start 04/05/18 at 17:22 Voriconazole (Vfend) 200 mg BID PO Last administered on 04/12/18 09:16; Admin Dose 200 MG; Start 04/09/18 at 12:00 Ascorbic Acid (Vitamin C) 500 mg DAILY NGT Last administered on 04/12/18 09:16; Admin Dose 500 MG; Start 04/09/18 at 14:00 Zinc Sulfate (Zinc Sulfate) 220 mg DAILY NGT Last administered on 04/12/18 09:16; Admin Dose 220 MG; Start 04/10/18 at 09:00 Midodrine (Proamatine) 10 mg BID PO Last administered on 04/12/18 09:16; Admin Dose 10 MG; Start 04/10/18 at 22:02 MARITZA HELLER Apr 12, 2018 13:05
[2018-04-13] VITALS (11 sets, daily range): BP systolic 91–140; BP diastolic 46–65; PULSE 71–85; RESP 16–20
[2018-04-13] MEDS: PANTOPRAZOLE 40 MG INJ IV SCH ×2 (05:33→17:15)
[2018-04-13] MEDS: ZINC SULFATE 220 MG CAP NGT SCH (08:20)
[2018-04-13] MEDS: ASCORBIC ACID 500 MG TAB NGT SCH (08:20)
[2018-04-13] MEDS: VORICONAZOLE 200 MG TAB PO SCH ×2 (08:20→20:47)
[2018-04-13] MEDS: MIDODRINE 2.5 MG TAB PO SCH ×2 (08:20→20:48)
[2018-04-13] MEDS: MUPIROCIN 2% 22 GM OINT TOP SCH ×2 (08:21→20:56)
[2018-04-13] MEDS: BALSAM PERU/CASTOR OIL 60 GM TUBE TOP SCH ×2 (08:21→20:57)
[2018-04-13] MEDS: COLLAGENASE 5 GM (UD JAR) TOP SCH (10:22)
--- NOTE | 2018-04-13 11:58 | CONS ---
Date/Time of Note Date/Time of Note DATE: 04/13/18 TIME: 11:57 Assessment/Plan Assessment/Plan Result Diagram: 04/13/18 0559 04/13/18 0600 Results 24hrs Laboratory Tests Test 04/12/18 16:04 04/13/18 05:59 04/13/18 06:00 White Blood Count 10.3 # 8.2 # Red Blood Count 3.30 L 2.70 L Hemoglobin 9.2 L 7.8 L Hematocrit 29.9 L 24.0 L Mean Corpuscular Volume 90.6 88.9 Mean Corpuscular Hemoglobin 27.9 L 28.9 L Mean Corpuscular Hemoglobin Concent 30.8 L 32.5 Red Cell Distribution Width 16.6 H 16.4 H Platelet Count 239 # 256 Mean Platelet Volume 13.2 H 12.9 H Immature Granulocytes % 0.400 0.500 H Neutrophils % 77.9 H 72.6 Lymphocytes % 15.3 16.5 Monocytes % 5.8 8.2 Eosinophils % 0.1 1.7 Basophils % 0.5 0.5 Nucleated Red Blood Cells % 0.0 0.0 Immature Granulocytes # 0.040 H 0.040 H Neutrophils # 8.0 H 6.0 Lymphocytes # 1.6 1.4 Monocytes # 0.6 0.7 Eosinophils # 0.0 0.1 Basophils # 0.1 0.0 Nucleated Red Blood Cells # 0.0 0.0 Sodium Level 139 143 Potassium Level 4.0 3.9 Chloride Level 110 110 Carbon Dioxide Level 25 27 Anion Gap 4 L 6 Blood Urea Nitrogen 25 H 24 H Creatinine 0.84 0.90 Est Glomerular Filtrat Rate mL/min Glucose Level 87 99 Calcium Level 7.9 L 7.5 L Consultation Date/Type/Reason Admit Date/Time Mar 27, 2018 at 20:08 Initial Consult Date SUBJECTIVE: Pt is sleepy, with NG tube intact. No fevers. no acute events over night VS: stable. T: 98.7 LABS: reviewed. WBC-8.2 CXR today: IMPRESSION: 1. Enteric tube in stomach 2. Left greater than right bibasilar infiltrates or atelectasis and small left pleural effusion 3. Mild cardiomegaly and atherosclerotic vascular disease Indwelling: NG tube Honeycutt Physical examination: GEN: Well-developed chronically ill-appearing wasted elderly man who is in no distress. HENT: Head atraumatic normocephalic sclera nonicteric. Neck is supple PULM: chest rise symmetrical, breath sounds diminished bases. Heart: S1-S2 ABDOEN: distended tender on palpation EXTREM: without cyanosis Assessment: 1. Persistent leukocytosis, status post septic shock 2. Status post GI bleeding===> EGD with Hemoclip placement 3. S/p E. coli ESBL UTI, now + yeast 4. MRSA nares colonization 5. Dysphagia 6. Dementia 7. Multiple pressure ulcers 8. PNA Plan: Patient is stable. Continue observing off antibiotics. Continue voriconazole. Requesting Provider: DEENA BASILIO Exam/Review of Systems Vital Signs Vitals Vital Signs Date Temp Pulse Resp B/P (MAP) Pulse Ox O2 O2 Flow FiO2 Time Delivery Rate 04/13/18 98.7 73 18 121/57 97 Room Air 11:13 (78) Intake and Output 04/12/18 04/12/18 04/13/18 1515:00 23:00 07:00 IntakeIntake Total 840 ml 760 ml OutputOutput Total 500 ml 1200 ml BalanceBalance 340 ml -440 ml Medications Medications Current Medications Ondansetron HCl (Zofran Inj) 4 mg Q6H PRN IV NAUSEA AND/OR VOMITING; Start 03/27/18 at 20:00 Acetaminophen (Tylenol Tab) 650 mg Q6H PRN PO PAIN LEVEL 1-3 OR FEVER Last administered on 04/10/18 17:27; Admin Dose 650 MG; Start 03/27/18 at 20:00 Collagenase (Santyl) 1 applic DAILY TOP Last administered on 04/13/18 10:22; Admin Dose 1 APPLIC; Start 03/31/18 at 09:00 Mupirocin (Bactroban) 1 applic BID TOP Last administered on 04/13/18 08:21; Admin Dose 1 APPLIC; Start 03/31/18 at 11:00 Pantoprazole (Protonix Iv) 40 mg BID@06,18 IV Last administered on 04/13/18 05:33; Admin Dose 40 MG; Start 04/02/18 at 18:00 Morphine Sulfate (morphine) 2 mg Q4H PRN IV PAIN LEVEL 7-10 Last administered on 04/05/18at 21:59; Admin Dose 2 MG; Start 04/05/18 at 17:22 Voriconazole (Vfend) 200 mg BID PO Last administered on 04/13/18 08:20; Admin Dose 200 MG; Start 04/09/18 at 12:00 Ascorbic Acid (Vitamin C) 500 mg DAILY NGT Last administered on 04/13/18 08:20; Admin Dose 500 MG; Start 04/09/18 at 14:00 Zinc Sulfate (Zinc Sulfate) 220 mg DAILY NGT Last administered on 04/13/18 08:20; Admin Dose 220 MG; Start 04/10/18 at 09:00 Midodrine (Proamatine) 10 mg BID PO Last administered on 04/13/18 08:20; Admin Dose 10 MG; Start 04/10/18 at 22:02 MARITZA HELLER Apr 13, 2018 11:58
--- NOTE | 2018-04-13 12:05 | PN ---
Date/Time of Note Date/Time of Note DATE: 04/13/18 TIME: 12:04 Assessment/Plan VTE Prophylaxis Risk score (from Ns)>0 risk: 5 SCD applied (from Ns): Yes Pharmacological prophylaxis: LMWH Lines/Catheters IV Catheter Type (from Nrs): Saline Lock Urinary Cath still in place: Yes Reason Cath still needed: skin wounds contaminated by urine Assessment/Plan Hospital Course -Anemia secondary to GI bleed. Dr. Gomes is following in GI consultation. Transfuse as needed, monitor hemoglobin and hematocrit. -Bleeding gastric ulcers, s/p hemostasis with placement of hemoclip during EGD by Dr Guallpa on 04/03/18. Continue Protonix. -S/p septic shock secondary to urinary tract infection, continue antibiotics per ID. Dr. Guzman is following in infection disease consultation. -Hypoxemic respiratory failure, resolving. Dr. Nam is following in pulmonology consultation. -Acute kidney injury, resolved. Dr. Senior following in nephrology consultation. -Hypernatremia, resolved. -MRSA of nares, continue Bactroban -Dementia -Multiple pressure ulcers, optimize nutrition, continue vitamin C and zinc sulfate, off loading. -Protein calorie malnutrition Result Diagram: 04/13/18 0559 04/13/18 0600 Results 24hrs Laboratory Tests Test 04/12/18 16:04 04/13/18 05:59 04/13/18 06:00 White Blood Count 10.3 # 8.2 # Red Blood Count 3.30 L 2.70 L Hemoglobin 9.2 L 7.8 L Hematocrit 29.9 L 24.0 L Mean Corpuscular Volume 90.6 88.9 Mean Corpuscular Hemoglobin 27.9 L 28.9 L Mean Corpuscular Hemoglobin Concent 30.8 L 32.5 Red Cell Distribution Width 16.6 H 16.4 H Platelet Count 239 # 256 Mean Platelet Volume 13.2 H 12.9 H Immature Granulocytes % 0.400 0.500 H Neutrophils % 77.9 H 72.6 Lymphocytes % 15.3 16.5 Monocytes % 5.8 8.2 Eosinophils % 0.1 1.7 Basophils % 0.5 0.5 Nucleated Red Blood Cells % 0.0 0.0 Immature Granulocytes # 0.040 H 0.040 H Neutrophils # 8.0 H 6.0 Lymphocytes # 1.6 1.4 Monocytes # 0.6 0.7 Eosinophils # 0.0 0.1 Basophils # 0.1 0.0 Nucleated Red Blood Cells # 0.0 0.0 Sodium Level 139 143 Potassium Level 4.0 3.9 Chloride Level 110 110 Carbon Dioxide Level 25 27 Anion Gap 4 L 6 Blood Urea Nitrogen 25 H 24 H Creatinine 0.84 0.90 Est Glomerular Filtrat Rate mL/min Glucose Level 87 99 Calcium Level 7.9 L 7.5 L Subjective 24 Hr Interval Summary Free Text/Dictation Eyes open, patient denies any complaints Exam/Review of Systems Vital Signs Vitals Vital Signs Date Temp Pulse Resp B/P (MAP) Pulse Ox O2 O2 Flow FiO2 Time Delivery Rate 04/13/18 98.7 73 18 121/57 97 Room Air 11:13 (78) Intake and Output 04/12/18 04/12/18 04/13/18 1414:59 22:59 06:59 IntakeIntake Total 840 ml 760 ml OutputOutput Total 500 ml 1200 ml BalanceBalance 340 ml -440 ml Exam Constitutional: well developed Head: normocephalic, atraumatic Neck: supple Respiratory: diminished breath sounds Cardiovascular: regular rate and rhythm Gastrointestinal: soft, non-tender Extremities: normal pulses Medications Medications Current Medications Ondansetron HCl (Zofran Inj) 4 mg Q6H PRN IV NAUSEA AND/OR VOMITING; Start 03/27/18 at 20:00 Acetaminophen (Tylenol Tab) 650 mg Q6H PRN PO PAIN LEVEL 1-3 OR FEVER Last administered on 04/10/18 17:27; Admin Dose 650 MG; Start 03/27/18 at 20:00 Collagenase (Santyl) 1 applic DAILY TOP Last administered on 04/13/18 10:22; Admin Dose 1 APPLIC; Start 03/31/18 at 09:00 Mupirocin (Bactroban) 1 applic BID TOP Last administered on 04/13/18 08:21; Admin Dose 1 APPLIC; Start 03/31/18 at 11:00 Pantoprazole (Protonix Iv) 40 mg BID@06,18 IV Last administered on 04/13/18 05:33; Admin Dose 40 MG; Start 04/02/18 at 18:00 Morphine Sulfate (morphine) 2 mg Q4H PRN IV PAIN LEVEL 7-10 Last administered o n 04/05/18 21:59; Admin Dose 2 MG; Start 04/05/18 at 17:22 Voriconazole (Vfend) 200 mg BID PO Last administered on 04/13/18 08:20; Admin Dose 200 MG; Start 04/09/18 at 12:00 Ascorbic Acid (Vitamin C) 500 mg DAILY NGT Last administered on 04/13/18 08:20; Admin Dose 500 MG; Start 04/09/18 at 14:00 Zinc Sulfate (Zinc Sulfate) 220 mg DAILY NGT Last administered on 04/13/18 08:20; Admin Dose 220 MG; Start 04/10/18 at 09:00 Midodrine (Proamatine) 10 mg BID PO Last administered on 04/13/18 08:20; Admin Dose 10 MG; Start 04/10/18 at 22:02 DEENA BASILIO Apr 13, 2018 12:05
--- NOTE | 2018-04-13 12:10 | CONS ---
Date/Time of Note Date/Time of Note DATE: 04/13/18 TIME: 12:08 Assessment/Plan Assessment/Plan Assessment/Plan Assessment and recommendations; 1 patient admitted with hypoxemic respiratory failure with significant interval improvement. 2. UTI. 3. Interval correction of hypernatremia. 4. Acute renal injury with interval improvement as well. 5. Improving encephalopathy. Continue current supportive care. Consider discharge to alf. Address CODE STATUS. Result Diagram: 04/13/18 0559 04/13/18 0600 Results 24hrs Laboratory Tests Test 04/12/18 16:04 04/13/18 05:59 04/13/18 06:00 White Blood Count 10.3 # 8.2 # Red Blood Count 3.30 L 2.70 L Hemoglobin 9.2 L 7.8 L Hematocrit 29.9 L 24.0 L Mean Corpuscular Volume 90.6 88.9 Mean Corpuscular Hemoglobin 27.9 L 28.9 L Mean Corpuscular Hemoglobin Concent 30.8 L 32.5 Red Cell Distribution Width 16.6 H 16.4 H Platelet Count 239 # 256 Mean Platelet Volume 13.2 H 12.9 H Immature Granulocytes % 0.400 0.500 H Neutrophils % 77.9 H 72.6 Lymphocytes % 15.3 16.5 Monocytes % 5.8 8.2 Eosinophils % 0.1 1.7 Basophils % 0.5 0.5 Nucleated Red Blood Cells % 0.0 0.0 Immature Granulocytes # 0.040 H 0.040 H Neutrophils # 8.0 H 6.0 Lymphocytes # 1.6 1.4 Monocytes # 0.6 0.7 Eosinophils # 0.0 0.1 Basophils # 0.1 0.0 Nucleated Red Blood Cells # 0.0 0.0 Sodium Level 139 143 Potassium Level 4.0 3.9 Chloride Level 110 110 Carbon Dioxide Level 25 27 Anion Gap 4 L 6 Blood Urea Nitrogen 25 H 24 H Creatinine 0.84 0.90 Est Glomerular Filtrat Rate mL/min Glucose Level 87 99 Calcium Level 7.9 L 7.5 L Consultation Date/Type/Reason Admit Date/Time Mar 27, 2018 at 20:08 Initial Consult Date 04/02/18 Type of Consult Pulmonary/critical care Requesting Provider: DEENA BASILIO 24 HR Interval Summary Free Text/Dictation Patient's condition is continually improving. Has remained hemodynamically stable. Patient remains awake and fairly responsive. General exam; elderly male, currently no distress. Exam/Review of Systems Vital Signs Vitals Vital Signs Date Temp Pulse Resp B/P (MAP) Pulse Ox O2 O2 Flow FiO2 Time Delivery Rate 04/13/18 98.7 73 18 121/57 97 Room Air 11:13 (78) Intake and Output 04/12/18 04/12/18 04/13/18 1515:00 23:00 07:00 IntakeIntake Total 840 ml 760 ml OutputOutput Total 500 ml 1200 ml BalanceBalance 340 ml -440 ml Exam H EENT exam; supple neck, no JVD. No lymphadenopathy. Midline trachea. No thyromegaly. Patient has multiple carious teeth. Nasogastric tube in place. Chest exam; diminished but clear breath sounds. S1-S2 audible, no murmurs. Regular rhythm. Abdomen exam; soft, no organomegaly. Nontender. Bowel sounds audible. Extremity exam; no peripheral edema. 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 Medications Medications Current Medications Ondansetron HCl (Zofran Inj) 4 mg Q6H PRN IV NAUSEA AND/OR VOMITING; Start 03/27/18 at 20:00 Acetaminophen (Tylenol Tab) 650 mg Q6H PRN PO PAIN LEVEL 1-3 OR FEVER Last administered on 04/10/18 17:27; Admin Dose 650 MG; Start 03/27/18 at 20:00 Collagenase (Santyl) 1 applic DAILY TOP Last administered on 04/13/18 10:22; Admin Dose 1 APPLIC; Start 03/31/18 at 09:00 Mupirocin (Bactroban) 1 applic BID TOP Last administered on 04/13/18 08:21; Admin Dose 1 APPLIC; Start 03/31/18 at 11:00 Pantoprazole (Protonix Iv) 40 mg BID@06,18 IV Last administered on 04/13/18 05:33; Admin Dose 40 MG; Start 04/02/18 at 18:00 Morphine Sulfate (morphine) 2 mg Q4H PRN IV PAIN LEVEL 7-10 Last administered on 04/05/18 21:59; Admin Dose 2 MG; Start 04/05/18 at 17:22 Voriconazole (Vfend) 200 mg BID PO Last administered on 04/13/18 08:20; Admin Dose 200 MG; Start 04/09/18 at 12:00 Ascorbic Acid (Vitamin C) 500 mg DAILY NGT Last administered on 04/13/18at 08:20; Admin Dose 500 MG; Start 04/09/18 at 14:00 Zinc Sulfate (Zinc Sulfate) 220 mg DAILY NGT Last administered on 04/13/18 08:20; Admin Dose 220 MG; Start 04/10/18 at 09:00 Midodrine (Proamatine) 10 mg BID PO Last administered on 04/13/18at 08:20; Admin Dose 10 MG; Start 04/10/18 at 22:02 LESLYE CROWDER Apr 13, 2018 12:10
--- NOTE | 2018-04-13 12:26 | CONS ---
Date/Time of Note Date/Time of Note DATE: 04/13/18 TIME: 12:25 Assessment/Plan Assessment/Plan Assessment/Plan 1. Acute kidney injury on CKD due to ATN + prerenal azotemia 2. acute blood loss anemia- 3. acute hyperkalemia- now resolved 4. acute hypoxemic resp failure 5. Sepsis due to acute UTI 6. Severe metabolic acidosis due to FLORES 7. Hypernatremia 8. Upper GI bleeding Plan: BUN/Cr 24/0.90, Na 143 BP stable , IVF stopped yesterday, currently on Tube feeding- no labs today to review yet Swallow evaluation midodrine to 10mg PO BID Renal US showed No evidence of hydronephrosis or mass, Nonobstructing intrarenal calculi are seen in the mid right kidney measuring 4 mm in 7 mm. 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.8 x 6.7 x 8.3 cm will follow up Approximately 20 min was spend in coordination of his care in staff Patient seen in collaboration with Dr Yue Senior. staff. Result Diagram: 04/13/18 0559 04/13/18 0600 Results 24hrs Laboratory Tests Test 04/12/18 16:04 04/13/18 05:59 04/13/18 06:00 White Blood Count 10.3 # 8.2 # Red Blood Count 3.30 L 2.70 L Hemoglobin 9.2 L 7.8 L Hematocrit 29.9 L 24.0 L Mean Corpuscular Volume 90.6 88.9 Mean Corpuscular Hemoglobin 27.9 L 28.9 L Mean Corpuscular Hemoglobin Concent 30.8 L 32.5 Red Cell Distribution Width 16.6 H 16.4 H Platelet Count 239 # 256 Mean Platelet Volume 13.2 H 12.9 H Immature Granulocytes % 0.400 0.500 H Neutrophils % 77.9 H 72.6 Lymphocytes % 15.3 16.5 Monocytes % 5.8 8.2 Eosinophils % 0.1 1.7 Basophils % 0.5 0.5 Nucleated Red Blood Cells % 0.0 0.0 Immature Granulocytes # 0.040 H 0.040 H Neutrophils # 8.0 H 6.0 Lymphocytes # 1.6 1.4 Monocytes # 0.6 0.7 Eosinophils # 0.0 0.1 Basophils # 0.1 0.0 Nucleated Red Blood Cells # 0.0 0.0 Sodium Level 139 143 Potassium Level 4.0 3.9 Chloride Level 110 110 Carbon Dioxide Level 25 27 Anion Gap 4 L 6 Blood Urea Nitrogen 25 H 24 H Creatinine 0.84 0.90 Est Glomerular Filtrat Rate mL/min Glucose Level 87 99 Calcium Level 7.9 L 7.5 L Consultation Date/Type/Reason Admit Date/Time Mar 27, 2018 at 20:08 Initial Consult Date 04/02/18 Requesting Provider: DEENA BASILIO 24 HR Interval Summary Constitutional: requiring O2 Exam/Review of Systems Vital Signs Vitals Vital Signs Date Temp Pulse Resp B/P (MAP) Pulse Ox O2 O2 Flow FiO2 Time Delivery Rate 04/13/18 98.7 73 18 121/57 97 Room Air 11:13 (78) Intake and Output 04/12/18 04/12/18 04/13/18 1515:00 23:00 07:00 IntakeIntake Total 840 ml 760 ml OutputOutput Total 500 ml 1200 ml BalanceBalance 340 ml -440 ml Exam Constitutional: alert, frail Psych: nl mood/affect Eyes: nl lids ENMT: nl external ears & nose Neck: supple Respiratory: diminished breath sounds (at bases bilaterally) Cardiovascular: nl pulses, other (s1s2) Gastrointestinal: soft, non-tender ( ) Musculoskeletal: muscle weakness, range of motion Extremities: normal pulses Neurological: confused Medications Medications Current Medications Ondansetron HCl (Zofran Inj) 4 mg Q6H PRN IV NAUSEA AND/OR VOMITING; Start 03/27/18 at 20:00 Acetaminophen (Tylenol Tab) 650 mg Q6H PRN PO PAIN LEVEL 1-3 OR FEVER Last administered on 04/10/18at 17:27; Admin Dose 650 MG; Start 03/27/18 at 20:00 Collagenase (Santyl) 1 applic DAILY TOP Last administered on 04/13/18 10:22; Admin Dose 1 APPLIC; Start 03/31/18 at 09:00 Mupirocin (Bactroban) 1 applic BID TOP Last administered on 04/13/18 08:21; Admin Dose 1 APPLIC; Start 03/31/18 at 11:00 Pantoprazole (Protonix Iv) 40 mg BID@06,18 IV Last administered on 04/13/18 05:33; Admin Dose 40 MG; Start 04/02/18 at 18:00 Morphine Sulfate (morphine) 2 mg Q4H PRN IV PAIN LEVEL 7-10 Last administered on 04/05/18 21:59; Admin Dose 2 MG; Start 04/05/18 at 17:22 Voriconazole (Vfend) 200 mg BID PO Last administered on 04/13/18 08:20; Admin Dose 200 MG; Start 04/09/18 at 12:00 Ascorbic Acid (Vitamin C) 500 mg DAILY NGT Last administered on 04/13/18 08:20; Admin Dose 500 MG; Start 04/09/18 at 14:00 Zinc Sulfate (Zinc Sulfate) 220 mg DAILY NGT Last administered on 04/13/18 08:20; Admin Dose 220 MG; Start 04/10/18 at 09:00 Midodrine (Proamatine) 10 mg BID PO Last administered on 04/13/18 08:20; Admin Dose 10 MG; Start 04/10/18 at 22:02 MICHAEL ARZATE Apr 13, 2018 12:26
--- NOTE | 2018-04-13 17:08 | CONS ---
Date/Time of Note Date/Time of Note DATE: 04/13/18 TIME: 17:08 Assessment/Plan Assessment/Plan Assessment/Plan Assessment/Plan Hospital Course 88 yo male presented with urosepsis and respiratory failure and coffee ground emesis 1. Upper GI bleed manifested through coffee ground emesis and melena -s/p EGD -resolved 2. Gastric ulcers, etiology of bleed 3. Hiatal hernia 4. Anemia secondary to gastric ulcer bleeding -stable but slowly trending down, 9.3->91->9.0 -monitor closely 5. E. coli, yeast (/6) in urine, wbc trending down 6. Dysphagia 7. Malnutrition. 8. Leukocytosis -WBC have gone up, 15.4 to 22.1 Speech therapy: moderate oropharyngeal dysphagia associated with reduced oropharyngeal strength/coordination, delayed trigger of swallow and reduced mentation status. Compared to the previous session, the pt is showing progress with his overall swallowing function and now safe to initiate a full liquid diet but with continued NG tube feeds, due to concern for poor amount of p.o intake. Plan1. Continue Poc 2. Continue NG tube for primary means of nutrition and initiate full liquid diet ([place] thick liquids by teaspoon only and alternate with puree) 3. administer crushed medication followed by NTL by teaspoon only Plan: Monitor HH closely, no evidence of active GI bleeding, continue with PPI BID Consider PEG. Patient's appears high risk for the aspiration No NSAIDs Monitor HH and transfuse as necessary Monitor for acute GI bleeding Result Diagram: 04/13/18 0559 04/13/18 0600 Results 24hrs Laboratory Tests Test 04/13/18 05:59 04/13/18 06:00 White Blood Count 8.2 # Red Blood Count 2.70 L Hemoglobin 7.8 L Hematocrit 24.0 L Mean Corpuscular Volume 88.9 Mean Corpuscular Hemoglobin 28.9 L Mean Corpuscular Hemoglobin Concent 32.5 Red Cell Distribution Width 16.4 H Platelet Count 256 Mean Platelet Volume 12.9 H Immature Granulocytes % 0.500 H Neutrophils % 72.6 Lymphocytes % 16.5 Monocytes % 8.2 Eosinophils % 1.7 Basophils % 0.5 Nucleated Red Blood Cells % 0.0 Immature Granulocytes # 0.040 H Neutrophils # 6.0 Lymphocytes # 1.4 Monocytes # 0.7 Eosinophils # 0.1 Basophils # 0.0 Nucleated Red Blood Cells # 0.0 Sodium Level 143 Potassium Level 3.9 Chloride Level 110 Carbon Dioxide Level 27 Anion Gap 6 Blood Urea Nitrogen 24 H Creatinine 0.90 Est Glomerular Filtrat Rate mL/min Glucose Level 99 Calcium Level 7.5 L Consultation Date/Type/Reason Admit Date/Time Mar 27, 2018 at 20:08 Initial Consult Date 04/02/18 Requesting Provider: DEENA BASILIO 24 HR Interval Summary Constitutional: no complaints Exam/Review of Systems Vital Signs Vitals Vital Signs Date Temp Pulse Resp B/P (MAP) Pulse Ox O2 O2 Flow FiO2 Time Delivery Rate 04/13/18 75 16:01 04/13/18 98.2 16 140/65 97 Room Air 15:17 (90) Intake and Output 04/12/18 04/12/18 04/13/18 1515:00 23:00 07:00 IntakeIntake Total 840 ml 760 ml OutputOutput Total 500 ml 1200 ml BalanceBalance 340 ml -440 ml Exam Constitutional: alert, oriented, well developed Psych: no complaints, nl mood/affect Head: normocephalic, atraumatic Eyes: nl conjunctiva, EOMI, nl lids, nl sclera, PERRL ENMT: nl external ears & nose, nl lips & teeth, nl nasal mucosa & septum Neck: supple, non-tender Respiratory: clear to auscultation, normal air movement Cardiovascular: regular rate and rhythm, nl pulses Gastrointestinal: soft, nl liver, spleen, non-tender Musculoskeletal: nl extremities to inspection, nl gait and stance Extremities: normal pulses Neurological: 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-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, nl mental status, nl speech, nl strength Skin: nl turgor; No rash or lesions Lymph: nl lymph nodes Medications Medications Current Medications Ondansetron HCl (Zofran Inj) 4 mg Q6H PRN IV NAUSEA AND/OR VOMITING; Start 03/27/18 at 20:00 Acetaminophen (Tylenol Tab) 650 mg Q6H PRN PO PAIN LEVEL 1-3 OR FEVER Last administered on 04/10/18at 17:27; Admin Dose 650 MG; Start 03/27/18 at 20:00 Collagenase (Santyl) 1 applic DAILY TOP Last administered on 04/13/18at 10:22; Admin Dose 1 APPLIC; Start 03/31/18 at 09:00 Mupirocin (Bactroban) 1 applic BID TOP Last administered on 04/13/18 08:21; Admin Dose 1 APPLIC; Start 03/31/18 at 11:00 Pantoprazole (Protonix Iv) 40 mg BID@06,18 IV Last administered on 04/13/18 05:33; Admin Dose 40 MG; Start 04/02/18 at 18:00 Morphine Sulfate (morphine) 2 mg Q4H PRN IV PAIN LEVEL 7-10 Last administered on 04/05/18 21:59; Admin Dose 2 MG; Start 04/05/18 at 17:22 Voriconazole (Vfend) 200 mg BID PO Last administered on 04/13/18 08:20; Admin Dose 200 MG; Start 04/09/18 at 12:00 Ascorbic Acid (Vitamin C) 500 mg DAILY NGT Last administered on 04/13/18 08:20; Admin Dose 500 MG; Start 04/09/18 at 14:00 Zinc Sulfate (Zinc Sulfate) 220 mg DAILY NGT Last administered on 04/13/18 08:20; Admin Dose 220 MG; Start 04/10/18 at 09:00 Midodrine (Proamatine) 10 mg BID PO Last administered on 04/13/18 08:20; Admin Dose 10 MG; Start 04/10/18 at 22:02 ATTILA UMANZOR MD Apr 13, 2018 17:08
[2018-04-14] VITALS (10 sets, daily range): BP systolic 122–140; BP diastolic 56–86; PULSE 68–90; RESP 17–20
[2018-04-14] MEDS: PANTOPRAZOLE 40 MG INJ IV SCH (05:14)
--- NOTE | 2018-04-14 06:59 | PN ---
Date/Time of Note Date/Time of Note DATE: 04/14/18 TIME: 06:57 Assessment/Plan VTE Prophylaxis Risk score (from Ns)>0 risk: 7 SCD applied (from [facility] [place] Yes Pharmacological prophylaxis: NA/contraindicated Pharm contraindication: bleeding Lines/Catheters IV [facility]from [facility] [place] Urinary Cath still in place: Yes Reason Cath still needed: urinary retention Assessment/Plan Hospital Course 88 yo male presented with urosepsis and respiratory failure and coffee ground emesis 1. Upper GI bleed manifested through coffee ground emesis and melena -s/p EGD -resolved 2. Gastric ulcers, etiology of bleed 3. Hiatal hernia 4. Anemia secondary to gastric ulcer bleeding -stable but slowly trending down, 9.3->91->9.0 -monitor closely 5. E. coli, yeast (/) in urine, wbc trending down 6. Dysphagia 7. Malnutrition. 8. Leukocytosis -resolved Speech therapy: moderate oropharyngeal dysphagia associated with reduced oropharyngeal strength/coordination, delayed trigger of swallow and reduced mentation status. Compared to the previous session, the pt is showing progress with his overall swallowing function and now safe to initiate a full liquid diet but with continued NG tube feeds, due to concern for poor amount of p.o intake. Plan1. Continue Poc 2. Continue NG tube for primary means of nutrition and initi ate full liquid diet ([place] thick liquids by teaspoon only and alternate with puree) 3. administer crushed medication followed by NTL by teaspoon only Plan: Monitor HH closely, no evidence of active GI bleeding, continue with PPI BID Consider PEG Aspiration precautions No NSAIDs Monitor HH and transfuse as necessary Monitor for acute GI bleeding Pt examined and plan of care discussed with Dr. Gomes Result Diagram: 04/14/18 0551 04/13/18 0600 Results 24hrs Laboratory Tests Test 04/14/18 05:51 White Blood Count 8.9 Red Blood Count 2.84 L Hemoglobin 7.9 L Hematocrit 25.6 L Mean Corpuscular Volume 90.1 Mean Corpuscular Hemoglobin 27.8 L Mean Corpuscular Hemoglobin Concent 30.9 L Red Cell Distribution Width 16.6 H Platelet Count 269 Mean Platelet Volume 12.4 H Immature Granulocytes % 0.600 H Neutrophils % 73.3 Lymphocytes % 15.9 Monocytes % 7.8 Eosinophils % 1.8 Basophils % 0.6 Nucleated Red Blood Cells % 0.0 Immature Granulocytes # 0.050 H Neutrophils # 6.5 Lymphocytes # 1.4 Monocytes # 0.7 Eosinophils # 0.2 Basophils # 0.1 Nucleated Red Blood Cells # 0.0 Subjective 24 Hr Interval Summary Free Text/Dictation Hgb 7.9, yesterday was 7.8. No blood transfusion. Per RN, no evidence of GI bleeding, no melena, no coffee ground or blood from NGT. Tolerating tube feeds. Exam/Review of Systems Vital Signs Vitals Vital Signs Date Temp Pulse Resp B/P (MAP) Pulse Ox O2 O2 Flow FiO2 Time Delivery Rate 04/14/18 68 04:00 04/13/18 97.4 18 122/60 95 23:32 (80) 04/13/18 Room Air 15:17 Intake and Output 04/13/18 04/13/18 04/14/18 1515:00 23:00 07:00 IntakeIntake Total 730 ml 790 ml OutputOutput Total 900 ml 750 ml BalanceBalance -170 ml 40 ml Exam Constitutional: alert, oriented Psych: no complaints Head: normocephalic Eyes: PERRL ENMT: mucosa pink and moist Respiratory: clear to auscultation Cardiovascular: regular rate and rhythm Gastrointestinal: soft, non-tender Musculoskeletal: nl extremities to inspection Medications Medications Current Medications Ondansetron HCl (Zofran Inj) 4 mg Q6H PRN IV NAUSEA AND/OR VOMITING; Start 03/27/18 at 20:00 Acetaminophen (Tylenol Tab) 650 mg Q6H PRN PO PAIN LEVEL 1-3 OR FEVER Last administered on 04/10/18at 17:27; Admin Dose 650 MG; Start 03/27/18 at 20:00 Collagenase (Santyl) 1 applic DAILY TOP Last administered on 04/13/18 10:22; Admin Dose 1 APPLIC; Start 03/31/18 at 09:00 Mupirocin (Bactroban) 1 applic BID TOP Last administered on 04/13/18at 20:56; Admin Dose 1 APPLIC; Start 03/31/18 at 11:00 Pantoprazole (Protonix Iv) 40 mg BID@06,18 IV Last administered on 04/14/18 05:14; Admin Dose 40 MG; Start 04/02/18 at 18:00 Morphine Sulfate (morphine) 2 mg Q4H PRN IV PAIN LEVEL 7-10 Last administered on 04/05/18 21:59; Admin Dose 2 MG; Start 04/05/18 at 17:22 Voriconazole (Vfend) 200 mg BID PO Last administered on 04/13/18 20:47; Admin Dose 200 MG; Start 04/09/18 at 12:00 Ascorbic Acid (Vitamin C) 500 mg DAILY NGT Last administered on 04/13/18 08:20; Admin Dose 500 MG; Start 04/09/18 at 14:00 Zinc Sulfate (Zinc Sulfate) 220 mg DAILY NGT Last administered on 04/13/18 08:20; Admin Dose 220 MG; Start 04/10/18 at 09:00 Midodrine (Proamatine) 10 mg BID PO Last administered on 04/13/18at 20:48; Admin Dose 10 MG; Start 04/10/18 at 22:02 SOREN DOVE Apr 14, 2018 06:59
[2018-04-14] MEDS: COLLAGENASE 5 GM (UD JAR) TOP SCH (08:51)
[2018-04-14] MEDS: MIDODRINE 2.5 MG TAB PO SCH ×2 (08:52→21:00)
[2018-04-14] MEDS: ZINC SULFATE 220 MG CAP NGT SCH (08:52)
[2018-04-14] MEDS: ASCORBIC ACID 500 MG TAB NGT SCH (08:52)
[2018-04-14] MEDS: VORICONAZOLE 200 MG TAB PO SCH ×2 (08:52→21:47)
[2018-04-14] MEDS: BALSAM PERU/CASTOR OIL 60 GM TUBE TOP SCH ×2 (08:52→21:46)
[2018-04-14] MEDS: MUPIROCIN 2% 22 GM OINT TOP SCH ×2 (08:53→21:46)
--- NOTE | 2018-04-14 11:02 | CONS ---
Date/Time of Note Date/Time of Note DATE: 04/14/18 TIME: 11:01 Consult Date/Type/Reason Admit Date/Time Mar 27, 2018 at 20:08 Initial Consult Date 03/29/18 Type of Consultation: Pulm/CCM Requesting Provider: DEENA BASILIO Subjective Stable this morning. No respiratory distress Objective Vital Signs Date Temp Pulse Resp B/P (MAP) Pulse Ox O2 O2 Flow FiO2 Time Delivery Rate 04/14/18 76 08:01 04/14/18 99.3 17 122/59 95 07:26 (80) 04/13/18 Room Air 15:17 Intake and Output 04/13/18 04/13/18 04/14/18 1515:00 23:00 07:00 IntakeIntake Total 730 ml 790 ml OutputOutput Total 900 ml 750 ml BalanceBalance -170 ml 40 ml Exam GENERAL: Frail elderly gentleman comfortable at rest no acute distress VITAL SIGNS: per chart NECK: Supple. No JVD or lymphadenopathy. CARDIAC EXAM: S1, S2. No added sounds or murmurs. CHEST: clear bilaterally, No added sounds, rales or wheezes ABDOMEN: Soft, nontender. No guarding or rebound. EXTREMITIES: No cyanosis, clubbing or edema. NEUROLOGIC: Generalized weakness. No focal deficits. Results/Medications Result Diagram: 04/14/18 0551 04/14/18 0551 Results 24 hrs Laboratory Tests Test 04/14/18 05:51 White Blood Count 8.9 Red Blood Count 2.84 L Hemoglobin 7.9 L Hematocrit 25.6 L Mean Corpuscular Volume 90.1 Mean Corpuscular Hemoglobin 27.8 L Mean Corpuscular Hemoglobin Concent 30.9 L Red Cell Distribution Width 16.6 H Platelet Count 269 Mean Platelet Volume 12.4 H Immature Granulocytes % 0.600 H Neutrophils % 73.3 Lymphocytes % 15.9 Monocytes % 7.8 Eosinophils % 1.8 Basophils % 0.6 Nucleated Red Blood Cells % 0.0 Immature Granulocytes # 0.050 H Neutrophils # 6.5 Lymphocytes # 1.4 Monocytes # 0.7 Eosinophils # 0.2 Basophils # 0.1 Nucleated Red Blood Cells # 0.0 Sodium Level 145 H Potassium Level 4.0 Chloride Level 109 Carbon Dioxide Level 29 Anion Gap 7 Blood Urea Nitrogen 23 H Creatinine 0.88 Est Glomerular Filtrat Rate mL/min Glucose Level 111 Calcium Level 7.5 L Total Bilirubin 0.1 L Direct Bilirubin 0.00 Indirect Bilirubin 0.1 Aspartate Amino Transf (AST/SGOT) 101 H Alanine Aminotransferase (ALT/SGPT) 70 H Alkaline Phosphatase 742 H Total Protein 5.4 L Albumin 2.0 L Globulin 3.40 H Albumin/Globulin Ratio 0.58 Medications Current Medications Ondansetron HCl (Zofran Inj) 4 mg Q6H PRN IV NAUSEA AND/OR VOMITING; Start 03/27/18 at 20:00 Acetaminophen (Tylenol Tab) 650 mg Q6H PRN PO PAIN LEVEL 1-3 OR FEVER Last administered on 04/10/18 17:27; Admin Dose 650 MG; Start 03/27/18 at 20:00 Collagenase (Santyl) 1 applic DAILY TOP Last administered on 04/14/18 08:51; Admin Dose 1 APPLIC; Start 03/31/18 at 09:00 Mupirocin (Bactroban) 1 applic BID TOP Last administered on 04/14/18 08:53; Admin Dose 1 APPLIC; Start 03/31/18 at 11:00 Pantoprazole (Protonix Iv) 40 mg BID@06,18 IV Last administered on 04/14/18 05:14; Admin Dose 40 MG; Start 04/02/18 at 18:00 Morphine Sulfate (morphine) 2 mg Q4H PRN IV PAIN LEVEL 7-10 Last administered on 04/05/18 21:59; Admin Dose 2 MG; Start 04/05/18 at 17:22 Voriconazole (Vfend) 200 mg BID PO Last administered on 04/14/18 08:52; Admin Dose 200 MG; Start 04/09/18 at 12:00 Ascorbic Acid (Vitamin C) 500 mg DAILY NGT Last administered on 04/14/18 08:52; Admin Dose 500 MG; Start 04/09/18 at 14:00 Zinc Sulfate (Zinc Sulfate) 220 mg DAILY NGT Last administered on 04/14/18 08:52; Admin Dose 220 MG; Start 04/10/18 at 09:00 Midodrine (Proamatine) 10 mg BID PO Last administered on 04/14/18 08:52; Admin Dose 10 MG; Start 04/10/18 at 22:02 Assessment/Plan Chief Complaint/Hosp Course IMP: 1. s/p Respiratory Failure--with hypoxemic component. Tachypnea likely due to metabolic acidosis 2/2 FLORES respiratory status improved 2. Urinary tract infection with septic shock--improved. 3. FLORES--likely pre-renal vs.ATN 4. Metabolic Acidosis 2/2 #3--improved 5. AMS--Dementia and uremia 6. HyperNa+ 7. s/p GI bleed RECS: 1. Continue midodrine 10 mg Q 8 2. Monitor off vasopressors 3. Aspiration precautions, free water 4. Follow H/H 5. Aspiration precautions Speech therapy and GI recs [facility]ED [facility] Apr 14, 2018 11:02
--- NOTE | 2018-04-14 12:45 | CONS ---
Date/Time of Note Date/Time of Note DATE: 04/14/18 TIME: 12:45 Assessment/Plan Assessment/Plan Assessment/Plan 1. Acute kidney injury on CKD due to ATN + prerenal azotemia 2. acute blood loss anemia- 3. acute hyperkalemia- now resolved 4. acute hypoxemic resp failure 5. Sepsis due to acute UTI 6. Severe metabolic acidosis due to FLORES 7. Hypernatremia 8. Upper GI bleeding Plan: BUN/Cr 23/0.88, Na 145, BP stable Swallow evaluation Decrease Midodrine to 5mg pO BID Renal US showed No evidence of hydronephrosis or mass, Nonobstructing intrarenal calculi are seen in the mid right kidney measuring 4 mm in 7 mm. 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.8 x 6.7 x 8.3 cm will follow up Result Diagram: 04/14/18 0551 04/14/18 0551 Results 24hrs Laboratory Tests Test 04/14/18 05:51 White Blood Count 8.9 Red Blood Count 2.84 L Hemoglobin 7.9 L Hematocrit 25.6 L Mean Corpuscular Volume 90.1 Mean Corpuscular Hemoglobin 27.8 L Mean Corpuscular Hemoglobin Concent 30.9 L Red Cell Distribution Width 16.6 H Platelet Count 269 Mean Platelet Volume 12.4 H Immature Granulocytes % 0.600 H Neutrophils % 73.3 Lymphocytes % 15.9 Monocytes % 7.8 Eosinophils % 1.8 Basophils % 0.6 Nucleated Red Blood Cells % 0.0 Immature Granulocytes # 0.050 H Neutrophils # 6.5 Lymphocytes # 1.4 Monocytes # 0.7 Eosinophils # 0.2 Basophils # 0.1 Nucleated Red Blood Cells # 0.0 Sodium Level 145 H Potassium Level 4.0 Chloride Level 109 Carbon Dioxide Level 29 Anion Gap 7 Blood Urea Nitrogen 23 H Creatinine 0.88 Est Glomerular Filtrat Rate mL/min Glucose Level 111 Calcium Level 7.5 L Total Bilirubin 0.1 L Direct Bilirubin 0.00 Indirect Bilirubin 0.1 Aspartate Amino Transf (AST/SGOT) 101 H Alanine Aminotransferase (ALT/SGPT) 70 H Alkaline Phosphatase 742 H Total Protein 5.4 L Albumin 2.0 L Globulin 3.40 H Albumin/Globulin Ratio 0.58 Consultation Date/Type/Reason Admit Date/Time Mar 27, 2018 at 20:08 Initial Consult Date 03/31/18 Type of Consult NEPHROLOGY Requesting Provider: DEENA BASILIO Exam/Review of Systems Vital Signs Vitals Vital Signs Date Temp Pulse Resp B/P (MAP) Pulse Ox O2 O2 Flow FiO2 Time Delivery Rate 04/14/18 76 12:01 04/14/18 98.6 17 126/56 98 11:29 (79) 04/13/18 Room Air 15:17 Intake and Output 04/13/18 04/13/18 04/14/18 1515:00 23:00 07:00 IntakeIntake Total 730 ml 790 ml OutputOutput Total 900 ml 750 ml BalanceBalance -170 ml 40 ml Exam Constitutional: alert Psych: no complaints Head: normocephalic ENMT: nl external ears & nose Neck: supple, non-tender Respiratory: clear to auscultation, normal air movement, diminished breath sounds Cardiovascular: regular rate and rhythm, nl pulses Gastrointestinal: soft, non-tender Musculoskeletal: nl extremities to inspection Medications Medications Current Medications Ondansetron HCl (Zofran Inj) 4 mg Q6H PRN IV NAUSEA AND/OR VOMITING; Start 03/27/18 at 20:00 Acetaminophen (Tylenol Tab) 650 mg Q6H PRN PO PAIN LEVEL 1-3 OR FEVER Last administered on 04/10/18 17:27; Admin Dose 650 MG; Start 03/27/18 at 20:00 Collagenase (Santyl) 1 applic DAILY TOP Last administered on 04/14/18at 08:51; Admin Dose 1 APPLIC; Start 03/31/18 at 09:00 Mupirocin (Bactroban) 1 applic BID TOP Last administered on 04/14/18at 08:53; Admin Dose 1 APPLIC; Start 03/31/18 at 11:00 Pantoprazole (Protonix Iv) 40 mg BID@,18 IV Last administered on 04/14/18at 0 5:14; Admin Dose 40 MG; Start 04/02/18 at 18:00 Morphine Sulfate (morphine) 2 mg Q4H PRN IV PAIN LEVEL 7-10 Last administered on 04/05/18 21:59; Admin Dose 2 MG; Start 04/05/18 at 17:22 Voriconazole (Vfend) 200 mg BID PO Last administered on 04/14/18 08:52; Admin Dose 200 MG; Start 04/09/18 at 12:00 Ascorbic Acid (Vitamin C) 500 mg DAILY NGT Last administered on 04/14/18 08:52; Admin Dose 500 MG; Start 04/09/18 at 14:00 Zinc Sulfate (Zinc Sulfate) 220 mg DAILY NGT Last administered on 04/14/18 08:52; Admin Dose 220 MG; Start 04/10/18 at 09:00 Midodrine (Proamatine) 10 mg BID PO Last administered on 04/14/18 08:52; Admin Dose 10 MG; Start 04/10/18 at 22:02 STEVEN BLANCO MD Apr 14, 2018 12:45
--- NOTE | 2018-04-14 13:07 | PN ---
Date/Time of Note Date/Time of Note DATE: 04/14/18 TIME: 13:04 Assessment/Plan VTE Prophylaxis Risk score (from Ns)>0 risk: 6 SCD applied (from Ns): Yes Pharmacological prophylaxis: NA/contraindicated Pharm contraindication: bleeding Lines/Catheters [facility]from [facility] Saline Lock Central line still needed: Yes Urinary Cath still in place: Yes Reason Cath still needed: urinary retention Assessment/Plan Hospital Course Patient remains hemodynamically stable, tolerates full liquid diet well in addition to NG tube feeding. ST Reevaluation if patient can be progressed on diet. Continue current care. Assessment/Plan -Anemia secondary to GI bleed. Dr. Gomes is following in GI consultation. Transfuse as needed, monitor hemoglobin and hematocrit. -Bleeding gastric ulcers, s/p hemostasis with placement of hemoclip during EGD by Dr Guallpa on 04/03/18. Continue Protonix. -S/p septic shock secondary to urinary tract infection, continue antibiotics per ID. Dr. Guzman is following in infection disease consultation. -Hypoxemic respiratory failure, resolving. Dr. Nam is following in pulmonology consultation. -Acute kidney injury, resolved. Dr. Senior following in nephrology consultation. -Hypernatremia, resolved. -MRSA of nares, continue Bactroban -Dementia -Multiple pressure ulcers, optimize nutrition, continue vitamin C and zinc sulfate, off loading. -Protein calorie malnutrition Further recommendations based on clinical course. Plan of care discussed with Dr. Kiser. Result Diagram: 04/14/18 0551 04/14/18 0551 Results 24hrs Laboratory Tests Test 04/14/18 05:51 White Blood Count 8.9 Red Blood Count 2.84 L Hemoglobin 7.9 L Hematocrit 25.6 L Mean Corpuscular Volume 90.1 Mean Corpuscular Hemoglobin 27.8 L Mean Corpuscular Hemoglobin Concent 30.9 L Red Cell Distribution Width 16.6 H Platelet Count 269 Mean Platelet Volume 12.4 H Immature Granulocytes % 0.600 H Neutrophils % 73.3 Lymphocytes % 15.9 Monocytes % 7.8 Eosinophils % 1.8 Basophils % 0.6 Nucleated Red Blood Cells % 0.0 Immature Granulocytes # 0.050 H Neutrophils # 6.5 Lymphocytes # 1.4 Monocytes # 0.7 Eosinophils # 0.2 Basophils # 0.1 Nucleated Red Blood Cells # 0.0 Sodium Level 145 H Potassium Level 4.0 Chloride Level 109 Carbon Dioxide Level 29 Anion Gap 7 Blood Urea Nitrogen 23 H Creatinine 0.88 Est Glomerular Filtrat Rate mL/min Glucose Level 111 Calcium Level 7.5 L Total Bilirubin 0.1 L Direct Bilirubin 0.00 Indirect Bilirubin 0.1 Aspartate Amino Transf (AST/SGOT) 101 H Alanine Aminotransferase (ALT/SGPT) 70 H Alkaline Phosphatase 742 H Total Protein 5.4 L Albumin 2.0 L Globulin 3.40 H Albumin/Globulin Ratio 0.58 Exam/Review of Systems Vital Signs Vitals Vital Signs Date Temp Pulse Resp B/P (MAP) Pulse Ox O2 O2 Flow FiO2 Time Delivery Rate 04/14/18 76 12:01 04/14/18 98.6 17 126/56 98 11:29 (79) 04/13/18 Room Air 15:17 Intake and Output 04/13/18 04/13/18 04/14/18 1515:00 23:00 07:00 IntakeIntake Total 730 ml 790 ml OutputOutput Total 900 ml 750 ml BalanceBalance -170 ml 40 ml Exam Constitutional: alert Neck: supple Cardiovascular: regular rate and rhythm Gastrointestinal: soft, non-tender Genitourinary - Male: other (Honeycutt catheter) Skin: nl turgor Additional Comments Right chest triple lumen catheter Medications Medications Current Medications Ondansetron HCl (Zofran Inj) 4 mg Q6H PRN IV NAUSEA AND/OR VOMITING; Start 03/27/18 at 20:00 Acetaminophen (Tylenol Tab) 650 mg Q6H PRN PO PAIN LEVEL 1-3 OR FEVER Last ad ministered on 04/10/18 17:27; Admin Dose 650 MG; Start 03/27/18 at 20:00 Collagenase (Santyl) 1 applic DAILY TOP Last administered on 04/14/18 08:51; Admin Dose 1 APPLIC; Start 03/31/18 at 09:00 Mupirocin (Bactroban) 1 applic BID TOP Last administered on 04/14/18 08:53; Admin Dose 1 APPLIC; Start 03/31/18 at 11:00 Pantoprazole (Protonix Iv) 40 mg BID@,18 IV Last administered on 04/14/18 05:14; Admin Dose 40 MG; Start 04/02/18 at 18:00 Morphine Sulfate (morphine) 2 mg Q4H PRN IV PAIN LEVEL 7-10 Last administered on 04/05/18 21:59; Admin Dose 2 MG; Start 04/05/18 at 17:22 Voriconazole (Vfend) 200 mg BID PO Last administered on 04/14/18 08:52; Admin Dose 200 MG; Start 04/09/18 at 12:00 Ascorbic Acid (Vitamin C) 500 mg DAILY NGT Last administered on 04/14/18 08:52; Admin Dose 500 MG; Start 04/09/18 at 14:00 Zinc Sulfate (Zinc Sulfate) 220 mg DAILY NGT Last administered on 04/14/18 08:52; Admin Dose 220 MG; Start 04/10/18 at 09:00 Midodrine (Proamatine) 10 mg BID PO Last administered on 04/14/18 08:52; Admin Dose 10 MG; Start 04/10/18 at 22:02 JUDY CORNEJO Apr 14, 2018 13:07
--- NOTE | 2018-04-14 15:18 | CONS ---
Date/Time of Note Date/Time of Note DATE: 04/14/18 TIME: 15:17 Assessment/Plan Assessment/Plan Hospital Course No acute changes overnight patient looks comfortable no fevers WBC 8.9 no shift no bands BUN 23 creatinine 0.88 Indwelling: NG tube Honeycutt Physical examination: Well-developed chronically ill-appearing wasted elderly man who is in no distress. Head atraumatic normocephalic sclera nonicteric. Neck is supple chest rise symmetrical breath sounds diminished bases. Heart: S1-S2 abdomen distended tender on palpation extremities without cyanosis Assessment: 1. Resolved leukocytosis, status post septic shock 2. Status post GI bleeding===> EGD with Hemoclip placement 3. S/p E. coli ESBL UTI, now + yeast 4. MRSA nares colonization 5. Dysphagia 6. Dementia Plan: Remains stable, continue observing off antibiotics, reculture as needed, continue voriconazole for couple more days Result Diagram: 04/14/18 0551 04/14/18 0551 Results 24hrs Laboratory Tests Test 04/14/18 05:51 White Blood Count 8.9 Red Blood Count 2.84 L Hemoglobin 7.9 L Hematocrit 25.6 L Mean Corpuscular Volume 90.1 Mean Corpuscular Hemoglobin 27.8 L Mean Corpuscular Hemoglobin Concent 30.9 L Red Cell Distribution Width 16.6 H Platelet Count 269 Mean Platelet Volume 12.4 H Immature Granulocytes % 0.600 H Neutrophils % 73.3 Lymphocytes % 15.9 Monocytes % 7.8 Eosinophils % 1.8 Basophils % 0.6 Nucleated Red Blood Cells % 0.0 Immature Granulocytes # 0.050 H Neutrophils # 6.5 Lymphocytes # 1.4 Monocytes # 0.7 Eosinophils # 0.2 Basophils # 0.1 Nucleated Red Blood Cells # 0.0 Sodium Level 145 H Potassium Level 4.0 Chloride Level 109 Carbon Dioxide Level 29 Anion Gap 7 Blood Urea Nitrogen 23 H Creatinine 0.88 Est Glomerular Filtrat Rate mL/min Glucose Level 111 Calcium Level 7.5 L Total Bilirubin 0.1 L Direct Bilirubin 0.00 Indirect Bilirubin 0.1 Aspartate Amino Transf (AST/SGOT) 101 H Alanine Aminotransferase (ALT/SGPT) 70 H Alkaline Phosphatase 742 H Total Protein 5.4 L Albumin 2.0 L Globulin 3.40 H Albumin/Globulin Ratio 0.58 Consultation Date/Type/Reason Admit Date/Time Mar 27, 2018 at 20:08 Initial Consult Date 04/02/18 Type of Consult ID Requesting Provider: DEENA BASILIO Exam/Review of Systems Vital Signs Vitals Vital Signs Date Temp Pulse Resp B/P (MAP) Pulse Ox O2 O2 Flow FiO2 Time Delivery Rate 04/14/18 99.3 84 18 140/61 96 15:07 (87) 04/13/18 Room Air 15:17 Intake and Output 04/13/18 04/13/18 04/14/18 1515:00 23:00 07:00 IntakeIntake Total 730 ml 790 ml OutputOutput Total 900 ml 750 ml BalanceBalance -170 ml 40 ml Medications Medications Current Medications Ondansetron HCl (Zofran Inj) 4 mg Q6H PRN IV NAUSEA AND/OR VOMITING; Start 03/27/18 at 20:00 Acetaminophen (Tylenol Tab) 650 mg Q6H PRN PO PAIN LEVEL 1-3 OR FEVER Last administered on 04/10/18 17:27; Admin Dose 650 MG; Start 03/27/18 at 20:00 Collagenase (Santyl) 1 applic DAILY TOP Last administered on 04/14/18 08:51; Admin Dose 1 APPLIC; Start 03/31/18 at 09:00 Mupirocin (Bactroban) 1 applic BID TOP Last administered on 04/14/18 08:53; Admin Dose 1 APPLIC; Start 03/31/18 at 11:00 Pantoprazole (Protonix Iv) 40 mg BID@06,18 IV Last administered on 04/14/18 05:14; Admin Dose 40 MG; Start 04/02/18 at 18:00 Morphine Sulfate (morphine) 2 mg Q4H PRN IV PAIN LEVEL 7-10 Last administered on 04/05/18 21:59; Admin Dose 2 MG; Start 04/05/18 at 17:22 Voriconazole (Vfend) 200 mg BID PO Last administered on 04/14/18 08:52; Admin Dose 200 MG; Start 04/09/18 at 12:00 Ascorbic Acid (Vitamin C) 500 mg DAILY NGT Last administered on 04/14/18 08:52; Admin Dose 500 MG; Start 04/09/18 at 14:00 Zinc Sulfate (Zinc Sulfate) 220 mg DAILY NGT Last administered on 1/14/19at 08:52; Admin Dose 220 MG; Start 04/10/18 at 09:00 Midodrine (Proamatine) 10 mg BID PO Last administered on 04/14/18at 08:52; Admin Dose 10 MG; Start 04/10/18 at 22:02 DAVONTE MCMAHAN NP Apr 14, 2018 15:18
[2018-04-14] MEDS: LANSOPRAZOLE 30 MG CAP PO SCH (18:24)
[2018-04-15] VITALS (13 sets, daily range): BP systolic 105–133; BP diastolic 53–74; PULSE 60–88; RESP 17–20
[2018-04-15] MEDS: LANSOPRAZOLE 30 MG CAP PO SCH ×2 (06:53→17:40)
--- NOTE | 2018-04-15 08:09 | PN ---
Date/Time of Note Date/Time of Note DATE: 04/15/18 TIME: 07:59 Assessment/Plan VTE Prophylaxis Risk score (from [facility])>0 risk: 6 SCD applied (from [facility]): Yes Pharmacological prophylaxis: NA/contraindicated Pharm contraindication: bleeding Lines/Catheters IV Catheter Type (from [facility]): Saline Lock Urinary Cath still in place: Yes Reason Cath still needed: urinary retention Assessment/Plan Hospital Course 88 yo male presented with urosepsis and respiratory failure and coffee ground emesis 1. Upper GI bleed manifested through coffee ground emesis and melena -s/p EGD -resolved 2. Gastric ulcers, etiology of bleed 3. Hiatal hernia 4. Anemia secondary to gastric ulcer bleeding -stable but slowly trending down, no active GI bleeding noted -monitor closely 5. E. coli, yeast (04/06) in urine, wbc trending down 6. Dysphagia -improving 7. Malnutrition. 8. Transaminitis -alk 742, alt 70, ast 101 Re evaluation by speech therapy indicates progression. 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 Gomes Result Diagram: 04/15/18 0610 04/15/18 0610 Results 24hrs Laboratory Tests Test 04/15/18 06:10 White Blood Count 6.9 # Red Blood Count 2.72 L Hemoglobin 7.7 L Hematocrit 24.1 L Mean Corpuscular Volume 88.6 Mean Corpuscular Hemoglobin 28.3 L Mean Corpuscular Hemoglobin Concent 32.0 Red Cell Distribution Width 17.0 H Platelet Count 307 Mean Platelet Volume 12.2 H Immature Granulocytes % 0.700 H Neutrophils % 65.7 Lymphocytes % 20.9 Monocytes % 9.9 Eosinophils % 2.4 Basophils % 0.4 Nucleated Red Blood Cells % 0.0 Immature Granulocytes # 0.050 H Neutrophils # 4.6 Lymphocytes # 1.5 Monocytes # 0.7 Eosinophils # 0.2 Basophils # 0.0 Nucleated Red Blood Cells # 0.0 Sodium Level 143 Potassium Level 3.9 Chloride Level 109 Carbon Dioxide Level 29 Anion Gap 5 Blood Urea Nitrogen 25 H Creatinine 0.82 Est Glomerular Filtrat Rate mL/min Glucose Level 104 Calcium Level 7.4 L Subjective 24 Hr Interval Summary Free Text/Dictation NO N/V. BM overnight, brown in color. No residuals. No evidence of GI bleeding per RN. Pt following commands. Re evaluation from speech therapy advanced diet and decreased tube feeds. LFTs are significantly elevated compared to previous LFTs Exam/Review of Systems Vital Signs Vitals Vital Signs Date Temp Pulse Resp B/P (MAP) Pulse Ox O2 O2 Flow FiO2 Time Delivery Rate 04/15/18 99.0 77 17 105/53 94 07:34 (70) 04/13/18 Room Air 15:17 Intake and Output 04/14/18 04/14/18 04/15/18 1515:00 23:00 07:00 IntakeIntake Total 810 ml 580 ml OutputOutput Total 550 ml 450 ml BalanceBalance 260 ml 130 ml Exam Constitutional: alert Psych: no complaints Head: normocephalic Eyes: nl sclera, PERRL ENMT: mucosa pink and moist Respiratory: clear to auscultation Cardiovascular: regular rate and rhythm Gastrointestinal: soft, non-tender Extremities: normal pulses Neurological: nl mental status Medications Medications Current Medications Ondansetron HCl (Zofran Inj) 4 mg Q6H PRN IV NAUSEA AND/OR VOMITING; Start 03/27/18 at 20:00 Acetaminophen (Tylenol Tab) 650 mg Q6H PRN PO PAIN LEVEL 1-3 OR FEVER Last administered on 04/10/18 17:27; Admin Dose 650 MG; Start 03/27/18 at 20:00 Collagenase (Santyl) 1 applic DAILY TOP Last administered on 04/14/18 08:51; Admin Dose 1 APPLIC; Start 03/31/18 at 09:00 Mupirocin (Bactroban) 1 applic BID TOP Last administered on 04/14/18 21:46; Admin Dose 1 APPLIC; Start 03/31/18 at 11:00 Morphine Sulfate (morphine) 2 mg Q4H PRN IV PAIN LEVEL 7-10 Last administered on 04/05/18 21:59; Admin Dose 2 MG; Start 04/05/18 at 17:22 Voriconazole (Vfend) 200 mg BID PO Last administered on 04/14/18 21:47; Admin Dose 200 MG; Start 04/09/18 at 12:00 Ascorbic Acid (Vitamin C) 500 mg DAILY NGT Last administered on 04/14/18at 08:52; Admin Dose 500 MG; Start 04/09/18 at 14:00 Zinc Sulfate (Zinc Sulfate) 220 mg DAILY NGT Last administered on 04/14/18at 08:52; Admin Dose 220 MG; Start 04/10/18 at 09:00 Lansoprazole (Prevacid) 30 mg BID@0600,1800 PO Last administered on 04/15/18at 06:53; Admin Dose 30 MG; Start 04/14/18 at 18:00 Midodrine (Proamatine) 5 mg BID PO ; Start 04/14/18 at 21:00 SOREN DOVE Apr 15, 2018 08:09
[2018-04-15] MEDS: VORICONAZOLE 200 MG TAB PO SCH (09:28)
[2018-04-15] MEDS: ZINC SULFATE 220 MG CAP NGT SCH (09:30)
[2018-04-15] MEDS: ASCORBIC ACID 500 MG TAB NGT SCH (09:30)
[2018-04-15] MEDS: MIDODRINE 2.5 MG TAB PO SCH (09:30)
[2018-04-15] MEDS: BALSAM PERU/CASTOR OIL 60 GM TUBE TOP SCH ×2 (10:02→21:56)
[2018-04-15] MEDS: MUPIROCIN 2% 22 GM OINT TOP SCH ×2 (10:02→21:56)
[2018-04-15] MEDS: COLLAGENASE 5 GM (UD JAR) TOP SCH (10:08)
--- NOTE | 2018-04-15 11:30 | CONS ---
Date/Time of Note Date/Time of Note DATE: 04/15/18 TIME: 11:29 Consult Date/Type/Reason Admit Date/Time Mar 27, 2018 at 20:08 Initial Consult Date 03/29/18 Type of Consultation: Pulm/CCM Requesting Provider: DEENA BASILIO Subjective Remains stable. Objective Vital Signs Date Temp Pulse Resp B/P (MAP) Pulse Ox O2 O2 Flow FiO2 Time Delivery Rate 04/15/18 98.3 85 17 133/63 97 11:15 (86) 04/13/18 Room Air 15:17 Intake and Output 04/14/18 04/14/18 04/15/18 1515:00 23:00 07:00 IntakeIntake Total 810 ml 580 ml OutputOutput Total 550 ml 450 ml BalanceBalance 260 ml 130 ml Exam GENERAL: Frail elderly gentleman comfortable at rest no acute distress VITAL SIGNS: per chart NECK: Supple. No JVD or lymphadenopathy. CARDIAC EXAM: S1, S2. No added sounds or murmurs. CHEST: clear bilaterally, No added sounds, rales or wheezes ABDOMEN: Soft, nontender. No guarding or rebound. EXTREMITIES: No cyanosis, clubbing or edema. NEUROLOGIC: Generalized weakness. No focal deficits. Results/Medications Result Diagram: 04/15/18 0610 04/15/18 0610 Results 24 hrs Laboratory Tests Test 04/15/18 06:10 04/15/18 08:20 White Blood Count 6.9 # Red Blood Count 2.72 L Hemoglobin 7.7 L Hematocrit 24.1 L Mean Corpuscular Volume 88.6 Mean Corpuscular Hemoglobin 28.3 L Mean Corpuscular Hemoglobin Concent 32.0 Red Cell Distribution Width 17.0 H Platelet Count 307 Mean Platelet Volume 12.2 H Immature Granulocytes % 0.700 H Neutrophils % 65.7 Lymphocytes % 20.9 Monocytes % 9.9 Eosinophils % 2.4 Basophils % 0.4 Nucleated Red Blood Cells % 0.0 Immature Granulocytes # 0.050 H Neutrophils # 4.6 Lymphocytes # 1.5 Monocytes # 0.7 Eosinophils # 0.2 Basophils # 0.0 Nucleated Red Blood Cells # 0.0 Sodium Level 143 Potassium Level 3.9 Chloride Level 109 Carbon Dioxide Level 29 Anion Gap 5 Blood Urea Nitrogen 25 H Creatinine 0.82 Est Glomerular Filtrat Rate mL/min Glucose Level 104 Calcium Level 7.4 L Hepatitis B Surface Antigen NEGATIVE Hepatitis B Core Total Antibody NEGATIVE Hepatitis C Antibody NEGATIVE Medications Current Medications Ondansetron HCl (Zofran Inj) 4 mg Q6H PRN IV NAUSEA AND/OR VOMITING; Start 03/27/18 at 20:00 Acetaminophen (Tylenol Tab) 650 mg Q6H PRN PO PAIN LEVEL 1-3 OR FEVER Last administered on 04/10/18 17:27; Admin Dose 650 MG; Start 03/27/18 at 20:00 Collagenase (Santyl) 1 applic DAILY TOP Last administered on 04/15/18 10:08; Admin Dose 1 APPLIC; Start 03/31/18 at 09:00 Mupirocin (Bactroban) 1 applic BID TOP Last administered on 04/15/18 10:02; Admin Dose 1 APPLIC; Start 03/31/18 at 11:00 Morphine Sulfate (morphine) 2 mg Q4H PRN IV PAIN LEVEL 7-10 Last administered on 04/05/18 21:59; Admin Dose 2 MG; Start 04/05/18 at 17:22 Voriconazole (Vfend) 200 mg BID PO Last administered on 04/15/18 09:28; Admin Dose 200 MG; Start 04/09/18 at 12:00 Ascorbic Acid (Vitamin C) 500 mg DAILY NGT Last administered on 04/15/18 09:30; Admin Dose 500 MG; Start 04/09/18 at 14:00 Zinc Sulfate (Zinc Sulfate) 220 mg DAILY NGT Last administered on 04/15/18 09:30; Admin Dose 220 MG; Start 04/10/18 at 09:00 Lansoprazole (Prevacid) 30 mg BID@0600,1800 PO Last administered on 04/15/18 06:53; Admin Dose 30 MG; Start 04/14/18 at 18:00 Midodrine (Proamatine) 5 mg BID PO Last administered on 04/15/18 09:30; Admin Dose 5 MG; Start 04/14/18 at 21:00 Assessment/Plan Chief Complaint/Hosp Course IMP: 1. s/p Respiratory Failure--with hypoxemic component. Tachypnea likely due to metabolic acidosis 2/2 FLORES respiratory status improved 2. Urinary tract infection with septic shock--improved. 3. FLORES--likely pre-renal vs.ATN 4. Metabolic Acidosis 2/2 #3--improved 5. AMS--Dementia and uremia 6. HyperNa+ 7. s/p GI bleed RECS: 1. Continue midodrine 10 mg Q 8 2. Monitor off vasopressors 3. Aspiration precautions, free water 4. Follow H/H 5. Aspiration precautions Speech therapy and GI recs SNF ? [facility]ED [facility] Apr 15, 2018 11:30
--- NOTE | 2018-04-15 14:25 | CONS ---
Date/Time of Note Date/Time of Note DATE: 04/15/18 TIME: 14:25 Assessment/Plan Assessment/Plan Assessment/Plan 1. Acute kidney injury on CKD due to ATN + prerenal azotemia 2. acute blood loss anemia- 3. acute hyperkalemia- now resolved 4. acute hypoxemic resp failure 5. Sepsis due to acute UTI 6. Severe metabolic acidosis due to FLORES 7. Hypernatremia 8. 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.8 x 6.7 x 8.3 cm will follow up Result Diagram: 04/15/18 0610 04/15/18 0610 Results 24hrs Laboratory Tests Test 04/15/18 06:10 04/15/18 08:20 White Blood Count 6.9 # Red Blood Count 2.72 L Hemoglobin 7.7 L Hematocrit 24.1 L Mean Corpuscular Volume 88.6 Mean Corpuscular Hemoglobin 28.3 L Mean Corpuscular Hemoglobin Concent 32.0 Red Cell Distribution Width 17.0 H Platelet Count 307 Mean Platelet Volume 12.2 H Immature Granulocytes % 0.700 H Neutrophils % 65.7 Lymphocytes % 20.9 Monocytes % 9.9 Eosinophils % 2.4 Basophils % 0.4 Nucleated Red Blood Cells % 0.0 Immature Granulocytes # 0.050 H Neutrophils # 4.6 Lymphocytes # 1.5 Monocytes # 0.7 Eosinophils # 0.2 Basophils # 0.0 Nucleated Red Blood Cells # 0.0 Sodium Level 143 Potassium Level 3.9 Chloride Level 109 Carbon Dioxide Level 29 Anion Gap 5 Blood Urea Nitrogen 25 H Creatinine 0.82 Est Glomerular Filtrat Rate mL/min Glucose Level 104 Calcium Level 7.4 L Hepatitis B Surface Antigen NEGATIVE Hepatitis B Core Total Antibody NEGATIVE Hepatitis C Antibody NEGATIVE Consultation Date/Type/Reason Admit Date/Time Mar 27, 2018 at 20:08 Initial Consult Date 03/31/18 Type of Consult NEPHROLOGY Requesting Provider: DEENA BASILIO Exam/Review of Systems Vital Signs Vitals Vital Signs Date Temp Pulse Resp B/P (MAP) Pulse Ox O2 O2 Flow FiO2 Time Delivery Rate 04/15/18 77 12:01 04/15/18 98.3 17 133/63 97 11:15 (86) 04/13/18 Room Air 15:17 Intake and Output 04/14/18 04/14/18 04/15/18 1515:00 23:00 07:00 IntakeIntake Total 810 ml 580 ml OutputOutput Total 550 ml 450 ml BalanceBalance 260 ml 130 ml Exam Constitutional: alert Psych: no complaints Head: normocephalic ENMT: nl external ears & nose Neck: supple, non-tender Respiratory: clear to auscultation, normal air movement, diminished breath sounds Cardiovascular: regular rate and rhythm, nl pulses Gastrointestinal: soft, non-tender Musculoskeletal: nl extremities to inspection Medications Medications Current Medications Ondansetron HCl (Zofran Inj) 4 mg Q6H PRN IV NAUSEA AND/OR VOMITING; Start 03/27/18 at 20:00 Acetaminophen (Tylenol Tab) 650 mg Q6H PRN PO PAIN LEVEL 1-3 OR FEVER Last administered on 04/10/18 17:27; Admin Dose 650 MG; Start 03/27/18 at 20:00 Collagenase (Santyl) 1 applic DAILY TOP Last administered on 04/15/18 10:08; Admin Dose 1 APPLIC; Start 03/31/18 at 09:00 Mupirocin (Bactroban) 1 applic BID TOP Last administered on 04/15/18 10:02; Admin Dose 1 APPLIC; Start 03/31/18 at 11:00 Morphine Sulfate (morphine) 2 mg Q4H PRN IV PAIN LEVEL 7-10 Last administered on 04/05/18at 21:59; Admin Dose 2 MG; Start 04/05/18 at 17:22 Voriconazole (Vfend) 200 mg BID PO Last administered on 04/15/18 09:28; Admin Dose 200 MG; Start 04/09/18 at 12:00 Ascorbic Acid (Vitamin C) 500 mg DAILY NGT Last administered on 04/15/18 09:30; Admin Dose 500 MG; Start 04/09/18 at 14:00 Zinc Sulfate (Zinc Sulfate) 220 mg DAILY NGT Last administered on 04/15/18 09:30; Admin Dose 220 MG; Start 04/10/18 at 09:00 Lansoprazole (Prevacid) 30 mg BID@0600,1800 PO Last administered on 04/15/18at 06:53; Admin Dose 30 MG; Start 04/14/18 at 18:00 Midodrine (Proamatine) 5 mg BID PO Last administered on 04/15/18at 09:30; Admin Dose 5 MG; Start 04/14/18 at 21:00 STEVEN BLANCO MD Apr 15, 2018 14:25
--- NOTE | 2018-04-15 14:43 | PN ---
Date/Time of Note Date/Time of Note DATE: 04/15/18 TIME: 14:41 Assessment/Plan VTE Prophylaxis Risk score (from Ns)>0 risk: 8 SCD applied (from [facility] [place]): Yes Pharmacological prophylaxis: NA/contraindicated Pharm contraindication: bleeding Lines/Catheters IV C[facility]ter Type (from [facility] Saline Lock Central line still needed: Yes Urinary Cath still in place: Yes Reason Cath still needed: urinary retention Assessment/Plan Hospital Course Patient remains hemodynamically stable, afebrile awake alert and oriented x2, started on mechanical diet. Assessment/Plan -Anemia secondary to GI bleed. Dr. Gomes is following in GI consultation. Transfuse as needed, monitor hemoglobin and hematocrit. -Bleeding gastric ulcers, s/p hemostasis with placement of hemoclip during EGD by Dr Guallpa on 04/03/18. Continue Protonix. -S/p septic shock secondary to urinary tract infection, continue antibiotics per ID. Dr. Guzman is following in infection disease consultation. -Hypoxemic respiratory failure, resolving. Dr. Nam is following in pulmonology consultation. -Acute kidney injury, resolved. Dr. Senior following in nephrology consultation. -Hypernatremia, resolved. -MRSA of nares, continue Bactroban -Dementia -Multiple pressure ulcers, optimize nutrition, continue vitamin C and zinc sulfate, off loading. -Protein calorie malnutrition Further recommendations based on clinical course. Plan of care discussed with Dr. Kiser. Result Diagram: 04/15/18 0610 04/15/18 0610 Results 24hrs Laboratory Tests Test 04/15/18 06:10 04/15/18 08:20 White Blood Count 6.9 # Red Blood Count 2.72 L Hemoglobin 7.7 L Hematocrit 24.1 L Mean Corpuscular Volume 88.6 Mean Corpuscular Hemoglobin 28.3 L Mean Corpuscular Hemoglobin Concent 32.0 Red Cell Distribution Width 17.0 H Platelet Count 307 Mean Platelet Volume 12.2 H Immature Granulocytes % 0.700 H Neutrophils % 65.7 Lymphocytes % 20.9 Monocytes % 9.9 Eosinophils % 2.4 Basophils % 0.4 Nucleated Red Blood Cells % 0.0 Immature Granulocytes # 0.050 H Neutrophils # 4.6 Lymphocytes # 1.5 Monocytes # 0.7 Eosinophils # 0.2 Basophils # 0.0 Nucleated Red Blood Cells # 0.0 Sodium Level 143 Potassium Level 3.9 Chloride Level 109 Carbon Dioxide Level 29 Anion Gap 5 Blood Urea Nitrogen 25 H Creatinine 0.82 Est Glomerular Filtrat Rate mL/min Glucose Level 104 Calcium Level 7.4 L Hepatitis B Surface Antigen NEGATIVE Hepatitis B Core Total Antibody NEGATIVE Hepatitis C Antibody NEGATIVE Exam/Review of Systems Vital Signs Vitals Vital Signs Date Temp Pulse Resp B/P (MAP) Pulse Ox O2 O2 Flow FiO2 Time Delivery Rate 04/15/18 77 12:01 04/15/18 98.3 17 133/63 97 11:15 (86) 04/13/18 Room Air 15:17 Intake and Output 04/14/18 04/14/18 04/15/18 1414:59 22:59 06:59 IntakeIntake Total 810 ml 580 ml OutputOutput Total 550 ml 450 ml BalanceBalance 260 ml 130 ml Exam Constitutional: alert Cardiovascular: regular rate and rhythm Gastrointestinal: soft, non-tender Genitourinary - Male: other (Honeycutt catheter) Skin: nl turgor Medications Medications Current Medications Ondansetron HCl (Zofran Inj) 4 mg Q6H PRN IV NAUSEA AND/OR VOMITING; Start 03/27/18 at 20:00 Acetaminophen (Tylenol Tab) 650 mg Q6H PRN PO PAIN LEVEL 1-3 OR FEVER Last adm inistered on 04/10/18 17:27; Admin Dose 650 MG; Start 03/27/18 at 20:00 Collagenase (Santyl) 1 applic DAILY TOP Last administered on 04/15/18 10:08; Admin Dose 1 APPLIC; Start 03/31/18 at 09:00 Mupirocin (Bactroban) 1 applic BID TOP Last administered on 04/15/18 10:02; Admin Dose 1 APPLIC; Start 03/31/18 at 11:00 Morphine Sulfate (morphine) 2 mg Q4H PRN IV PAIN LEVEL 7-10 Last administered on 04/05/18 21:59; Admin Dose 2 MG; Start 04/05/18 at 17:22 Voriconazole (Vfend) 200 mg BID PO Last administered on 04/15/18 09:28; Admin Dose 200 MG; Start 04/09/18 at 12:00 Ascorbic Acid (Vitamin C) 500 mg DAILY NGT Last administered on 04/15/18 09:30; Admin Dose 500 MG; Start 04/09/18 at 14:00 Zinc Sulfate (Zinc Sulfate) 220 mg DAILY NGT Last administered on 04/15/18at 09:30; Admin Dose 220 MG; Start 04/10/18 at 09:00 Lansoprazole (Prevacid) 30 mg BID@0600,1800 PO Last administered on 04/15/18at 06:53; Admin Dose 30 MG; Start 04/14/18 at 18:00 Midodrine (Proamatine) 5 mg BID PO Last administered on 04/15/18at 09:30; Admin Dose 5 MG; Start 04/14/18 at 21:00 JUDY CORNEJO Apr 15, 2018 14:43
--- NOTE | 2018-04-15 15:25 | CONS ---
Date/Time of Note Date/Time of Note DATE: 04/15/18 TIME: 15:24 Assessment/Plan Assessment/Plan Hospital Course Patient is alert denies pain, looks comfortable, no fevers overnight Indwelling: NG tube Honeycutt Physical examination: Well-developed chronically ill-appearing wasted elderly man who is in no distress. Head atraumatic normocephalic sclera nonicteric. Neck is supple chest rise symmetrical breath sounds diminished bases. Heart: S1-S2 abdomen distended tender on palpation extremities without cyanosis Assessment: 1. Resolved leukocytosis, status post septic shock 2. Status post GI bleeding===> EGD with Hemoclip placement 3. S/p E. coli ESBL UTI, now + yeast 4. MRSA nares colonization 5. Dysphagia 6. Dementia Plan: Remains stable, continue observing off antibiotics, dc voriconazole Result Diagram: 04/15/18 0610 04/15/18 0610 Results 24hrs Laboratory Tests Test 04/15/18 06:10 04/15/18 08:20 White Blood Count 6.9 # Red Blood Count 2.72 L Hemoglobin 7.7 L Hematocrit 24.1 L Mean Corpuscular Volume 88.6 Mean Corpuscular Hemoglobin 28.3 L Mean Corpuscular Hemoglobin Concent 32.0 Red Cell Distribution Width 17.0 H Platelet Count 307 Mean Platelet Volume 12.2 H Immature Granulocytes % 0.700 H Neutrophils % 65.7 Lymphocytes % 20.9 Monocytes % 9.9 Eosinophils % 2.4 Basophils % 0.4 Nucleated Red Blood Cells % 0.0 Immature Granulocytes # 0.050 H Neutrophils # 4.6 Lymphocytes # 1.5 Monocytes # 0.7 Eosinophils # 0.2 Basophils # 0.0 Nucleated Red Blood Cells # 0.0 Sodium Level 143 Potassium Level 3.9 Chloride Level 109 Carbon Dioxide Level 29 Anion Gap 5 Blood Urea Nitrogen 25 H Creatinine 0.82 Est Glomerular Filtrat Rate mL/min Glucose Level 104 Calcium Level 7.4 L Hepatitis B Surface Antigen NEGATIVE Hepatitis B Core Total Antibody NEGATIVE Hepatitis C Antibody NEGATIVE Consultation Date/Type/Reason Admit Date/Time Mar 27, 2018 at 20:08 Initial Consult Date 04/02/18 Type of Consult ID Requesting Provider: DEENA BASILIO Exam/Review of Systems Vital Signs Vitals Vital Signs Date Temp Pulse Resp B/P (MAP) Pulse Ox O2 O2 Flow FiO2 Time Delivery Rate 04/15/18 98.9 88 18 126/60 95 15:11 (82) 04/13/18 Room Air 15:17 Intake and Output 04/14/18 04/14/18 04/15/18 1515:00 23:00 07:00 IntakeIntake Total 810 ml 580 ml OutputOutput Total 550 ml 450 ml BalanceBalance 260 ml 130 ml Medications Medications Current Medications Ondansetron HCl (Zofran Inj) 4 mg Q6H PRN IV NAUSEA AND/OR VOMITING; Start 03/27/18 at 20:00 Acetaminophen (Tylenol Tab) 650 mg Q6H PRN PO PAIN LEVEL 1-3 OR FEVER Last administered on 04/10/18 17:27; Admin Dose 650 MG; Start 03/27/18 at 20:00 Collagenase (Santyl) 1 applic DAILY TOP Last administered on 04/15/18 10:08; Admin Dose 1 APPLIC; Start 03/31/18 at 09:00 Mupirocin (Bactroban) 1 applic BID TOP Last administered on 04/15/18 10:02; Admin Dose 1 APPLIC; Start 03/31/18 at 11:00 Morphine Sulfate (morphine) 2 mg Q4H PRN IV PAIN LEVEL 7-10 Last administered on 04/05/18 21:59; Admin Dose 2 MG; Start 04/05/18 at 17:22 Voriconazole (Vfend) 200 mg BID PO Last administered on 04/15/18 09:28; Admin Dose 200 MG; Start 04/09/18 at 12:00 Ascorbic Acid (Vitamin C) 500 mg DAILY NGT Last administered on 04/15/18 09:30; Admin Dose 500 MG; Start 04/09/18 at 14:00 Zinc Sulfate (Zinc Sulfate) 220 mg DAILY NGT Last administered on 04/15/18 09:30; Admin Dose 220 MG; Start 04/10/18 at 09:00 Lansoprazole (Prevacid) 30 mg BID@0600,1800 PO Last administered on 04/15/18 06:53; Admin Dose 30 MG; Start 04/14/18 at 18:00 DAVONTE MCMAHAN NP Apr 15, 2018 15:25
[2018-04-16] VITALS (12 sets, daily range): BP systolic 114–138; BP diastolic 59–71; PULSE 69–94; RESP 17–20
[2018-04-16] MEDS: LANSOPRAZOLE 30 MG CAP PO SCH ×2 (05:27→17:49)
[2018-04-16] MEDS: BALSAM PERU/CASTOR OIL 60 GM TUBE TOP SCH ×3 (07:54→22:00)
[2018-04-16] MEDS: COLLAGENASE 5 GM (UD JAR) TOP SCH ×2 (07:55→08:19)
[2018-04-16] MEDS: MUPIROCIN 2% 22 GM OINT TOP SCH ×2 (08:19→22:00)
[2018-04-16] MEDS: ZINC SULFATE 220 MG CAP NGT SCH (08:19)
[2018-04-16] MEDS: ASCORBIC ACID 500 MG TAB NGT SCH (08:19)
--- NOTE | 2018-04-16 09:36 | CONS ---
Date/Time of Note Date/Time of Note DATE: 04/16/18 TIME: 09:36 Assessment/Plan Assessment/Plan Assessment/Plan 1. Acute kidney injury on CKD due to ATN + prerenal azotemia 2. acute blood loss anemia- 3. acute hyperkalemia- now resolved 4. acute hypoxemic resp failure 5. Sepsis due to acute UTI 6. Severe metabolic acidosis due to FLORES 7. Hypernatremia 8. Upper GI bleeding Plan: BUN/Cr 25/0.8, Na 141, BP stable without midodrine Renal US showed No evidence of hydronephrosis or mass, Nonobstructing intrarenal calculi are seen in the mid right kidney measuring 4 mm in 7 mm. 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.8 x 6.7 x 8.3 cm will follow up Result Diagram: 04/16/18 0539 04/16/18 0539 Results 24hrs Laboratory Tests Test 04/16/18 00:34 04/16/18 05:39 Stool Occult Blood NEGATIVE White Blood Count 6.0 Red Blood Count 2.88 L Hemoglobin 8.0 L Hematocrit 25.8 L Mean Corpuscular Volume 89.6 Mean Corpuscular Hemoglobin 27.8 L Mean Corpuscular Hemoglobin Concent 31.0 L Red Cell Distribution Width 16.7 H Platelet Count 341 Mean Platelet Volume 11.9 H Immature Granulocytes % 0.700 H Neutrophils % 57.4 Lymphocytes % 25.5 Monocytes % 11.6 H Eosinophils % 4.0 Basophils % 0.8 Nucleated Red Blood Cells % 0.0 Immature Granulocytes # 0.040 H Neutrophils # 3.5 Lymphocytes # 1.5 Monocytes # 0.7 Eosinophils # 0.2 Basophils # 0.1 Nucleated Red Blood Cells # 0.0 Sodium Level 141 Potassium Level 4.3 Chloride Level 108 Carbon Dioxide Level 25 Anion Gap 8 Blood Urea Nitrogen 25 H Creatinine 0.80 Est Glomerular Filtrat Rate mL/min Glucose Level 94 Calcium Level 7.4 L Total Bilirubin 0.1 L Direct Bilirubin 0.00 Indirect Bilirubin 0.1 Aspartate Amino Transf (AST/SGOT) 73 H Alanine Aminotransferase (ALT/SGPT) 63 Alkaline Phosphatase 672 H Total Protein 5.6 L Albumin 2.0 L Globulin 3.60 H Albumin/Globulin Ratio 0.55 Consultation Date/Type/Reason Admit Date/Time Mar 27, 2018 at 20:08 Initial Consult Date 03/31/18 Type of Consult NEPHROLOGY Requesting Provider: DEEAN BASILIO Exam/Review of Systems Vital Signs Vitals Vital Signs Date Temp Pulse Resp B/P (MAP) Pulse Ox O2 O2 Flow FiO2 Time Delivery Rate 04/16/18 79 08:40 04/16/18 98.2 17 122/59 95 07:18 (80) 04/13/18 Room Air 15:17 Intake and Output 04/15/18 04/15/18 04/16/18 1515:00 23:00 07:00 IntakeIntake Total 400 ml OutputOutput Total 900 ml BalanceBalance -500 ml Exam Constitutional: alert Psych: no complaints Head: normocephalic ENMT: nl external ears & nose Neck: supple, non-tender Respiratory: clear to auscultation, normal air movement, diminished breath sounds Cardiovascular: regular rate and rhythm, nl pulses Gastrointestinal: soft, non-tender Musculoskeletal: nl extremities to inspection Medications Medications Current Medications Ondansetron HCl (Zofran Inj) 4 mg Q6H PRN IV NAUSEA AND/OR VOMITING; Start 03/27/18 at 20:00 Acetaminophen (Tylenol Tab) 650 mg Q6H PRN PO PAIN LEVEL 1-3 OR FEVER Last administered on 04/10/18at 17:27; Admin Dose 650 MG; Start 03/27/18 at 20:00 Collagenase (Santyl) 1 applic DAILY TOP Last administered on 04/16/18at 08:19; Admin Dose 1 APPLIC; Start 03/31/18 at 09:00 Mupirocin (Bactroban) 1 applic BID TOP Last administered on 04/16/18 08:19; Admin Dose 1 APPLIC; Start 03/31/18 at 11:00 Morphine Sulfate (morphine) 2 mg Q4H PRN IV PAIN LEVEL 7-10 Last administered on 04/05/18at 21:59; Admin Dose 2 MG; Start 04/05/18 at 17:22 Ascorbic Acid (Vitamin C) 500 mg DAILY NGT Last administered on 04/16/18 08:19; Admin Dose 500 MG; Start 04/09/18 at 14:00 Zinc Sulfate (Zinc Sulfate) 220 mg DAILY NGT Last administered on 04/16/18 08:19; Admin Dose 220 MG; Start 04/10/18 at 09:00 Lansoprazole (Prevacid) 30 mg BID@0600,1800 PO Last administered on 04/16/18at 05:27; Admin Dose 30 MG; Start 04/14/18 at 18:00 STEVEN BLANCO MD Apr 16, 2018 09:36
--- NOTE | 2018-04-16 10:39 | PN ---
Date/Time of Note Date/Time of Note DATE: 04/16/18 TIME: 10:33 Assessment/Plan VTE Prophylaxis Risk score (from Ns)>0 risk: 8 SCD applied (from Ns): Yes Pharmacological prophylaxis: NA/contraindicated Pharm contraindication: bleeding Lines/Catheters [facility] Sal[facility] Lock Urinary Cath still in place: Yes Reason Cath still needed: terminal illness/intractable pain Assessment/Plan Hospital Course 88 yo male presented with urosepsis and respiratory failure and coffee ground emesis 1. Upper GI bleed manifested through coffee ground emesis and melena -s/p EGD -resolved 2. Gastric ulcers, etiology of bleed 3. Hiatal hernia 4. Anemia secondary to gastric ulcer bleeding -stable but slowly trending down, no active GI bleeding noted, FOB neg 04/16 -monitor closely 5. E. coli, yeast (04/06) in urine, wbc trending down 6. Dysphagia -improving 7. Malnutrition. 8. Transaminitis -alk 742, alt 70, ast 101 -trending downward, US suggests cirrhosis 9. Coarse slightly nodular liver suggesting cirrhosis US of upper abd 04/15: 1. Coarse slightly nodular liver suggesting cirrhosis. No focal hepatic masses. 2. Cholelithiasis. There is thickening of the gallbladder wall which is nonspecific finding. Clinical correlation is recommended to exclude acute or chronic cholecystitis. 3. No biliary duct dilatation. 4. Small ascites and right pleural effusion. 5. Pancreas not visualized Plan: Ammonia EMELY, smooth muscle antibody, mitochondrial ab, alpha 1 antitrypsin MRCP was cancelled because pt is unable to tell us if he has metal in body, no family. CT of abd does not show metal. US of abd done instead. 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 Gomes Result Diagram: 04/16/18 0539 04/16/1839 Results 24hrs Laboratory Tests Test 04/16/18 00:34 04/16/18 05:39 Stool Occult Blood NEGATIVE White Blood Count 6.0 Red Blood Count 2.88 L Hemoglobin 8.0 L Hematocrit 25.8 L Mean Corpuscular Volume 89.6 Mean Corpuscular Hemoglobin 27.8 L Mean Corpuscular Hemoglobin Concent 31.0 L Red Cell Distribution Width 16.7 H Platelet Count 341 Mean Platelet Volume 11.9 H Immature Granulocytes % 0.700 H Neutrophils % 57.4 Lymphocytes % 25.5 Monocytes % 11.6 H Eosinophils % 4.0 Basophils % 0.8 Nucleated Red Blood Cells % 0.0 Immature Granulocytes # 0.040 H Neutrophils # 3.5 Lymphocytes # 1.5 Monocytes # 0.7 Eosinophils # 0.2 Basophils # 0.1 Nucleated Red Blood Cells # 0.0 Sodium Level 141 Potassium Level 4.3 Chloride Level 108 Carbon Dioxide Level 25 Anion Gap 8 Blood Urea Nitrogen 25 H Creatinine 0.80 Est Glomerular Filtrat Rate mL/min Glucose Level 94 Calcium Level 7.4 L Total Bilirubin 0.1 L Direct Bilirubin 0.00 Indirect Bilirubin 0.1 Aspartate Amino Transf (AST/SGOT) 73 H Alanine Aminotransferase (ALT/SGPT) 63 Alkaline Phosphatase 672 H Total Protein 5.6 L Albumin 2.0 L Globulin 3.60 H Albumin/Globulin Ratio 0.55 Subjective 24 Hr Interval Summary Free Text/Dictation Pt denies N/V, abd pain. BM overnight, no evidence GI bleeding. FOB negative. Exam/Review of Systems Vital Signs Vitals Vital Signs Date Temp Pulse Resp B/P (MAP) Pulse Ox O2 O2 Flow FiO2 Time Delivery Rate 04/16/18 79 08:40 04/16/18 98.2 17 122/59 95 07:18 (80) 04/13/18 Room Air 15:17 Intake and Output 04/15/18 04/15/18 04/16/18 1414:59 22:59 06:59 IntakeIntake Total 400 ml OutputOutput Total 900 ml BalanceBalance -500 ml Exam Constitutional: alert Psych: no complaints Head: normocephalic Eyes: PERRL Gastrointestinal: soft, bowel sounds, other (pt unable to relax abdomen, tympany in epigastric area) Medications Medications Current Medications Ondansetron HCl (Zofran Inj) 4 mg Q6H PRN IV NAUSEA AND/OR VOMITING; Start 03/27/18 at 20:00 Acetaminophen (Tylenol Tab) 650 mg Q6H PRN PO PAIN LEVEL 1-3 OR FEVER Last administered on 04/10/18at 17:27; Admin Dose 650 MG; Start 12/27/18 at 20:00 Collagenase (Santyl) 1 applic DAILY TOP Last administered on 04/16/18at 08:19; Admin Dose 1 APPLIC; Start 03/31/18 at 09:00 Mupirocin (Bactroban) 1 applic BID TOP Last administered on 04/16/18at 08:19; Admin Dose 1 APPLIC; Start 03/31/18 at 11:00 Morphine Sulfate (morphine) 2 mg Q4H PRN IV PAIN LEVEL 7-10 Last administered on 04/05/18at 21:59; Admin Dose 2 MG; Start 04/05/18 at 17:22 Ascorbic Acid (Vitamin C) 500 mg DAILY NGT Last administered on 04/16/18at 08:19; Admin Dose 500 MG; Start 04/09/18 at 14:00 Zinc Sulfate (Zinc Sulfate) 220 mg DAILY NGT Last administered on 04/16/18at 0 8:19; Admin Dose 220 MG; Start 04/10/18 at 09:00 Lansoprazole (Prevacid) 30 mg BID@0600,1800 PO Last administered on 04/16/18at 05:27; Admin Dose 30 MG; Start 04/14/18 at 18:00 SOREN DOVE Apr 16, 2018 10:39
--- NOTE | 2018-04-16 11:05 | CONS ---
Date/Time of Note Date/Time of Note DATE: 04/16/18 TIME: 11:05 Assessment/Plan Assessment/Plan Hospital Course All noted, no acute events, looks comfortable, no fevers Indwelling: NG tube Honeycutt Physical examination: Well-developed chronically ill-appearing wasted elderly man who is in no distress. Head atraumatic normocephalic sclera nonicteric. Neck is supple chest rise symmetrical breath sounds diminished bases. Heart: S1-S2 abdomen distended tender on palpation extremities without cyanosis Assessment: 1. Resolved leukocytosis, status post septic shock 2. Status post GI bleeding===> EGD with Hemoclip placement 3. S/p E. coli ESBL UTI, now + yeast 4. MRSA nares colonization 5. Dysphagia 6. Dementia Plan: Remains stable, continue observing off antibiotics, GI rec-s noted Result Diagram: 04/16/18 0539 04/16/18 0539 Results 24hrs Laboratory Tests Test 04/16/18 00:34 04/16/18 05:39 Stool Occult Blood NEGATIVE White Blood Count 6.0 Red Blood Count 2.88 L Hemoglobin 8.0 L Hematocrit 25.8 L Mean Corpuscular Volume 89.6 Mean Corpuscular Hemoglobin 27.8 L Mean Corpuscular Hemoglobin Concent 31.0 L Red Cell Distribution Width 16.7 H Platelet Count 341 Mean Platelet Volume 11.9 H Immature Granulocytes % 0.700 H Neutrophils % 57.4 Lymphocytes % 25.5 Monocytes % 11.6 H Eosinophils % 4.0 Basophils % 0.8 Nucleated Red Blood Cells % 0.0 Immature Granulocytes # 0.040 H Neutrophils # 3.5 Lymphocytes # 1.5 Monocytes # 0.7 Eosinophils # 0.2 Basophils # 0.1 Nucleated Red Blood Cells # 0.0 Sodium Level 141 Potassium Level 4.3 Chloride Level 108 Carbon Dioxide Level 25 Anion Gap 8 Blood Urea Nitrogen 25 H Creatinine 0.80 Est Glomerular Filtrat Rate mL/min Glucose Level 94 Calcium Level 7.4 L Total Bilirubin 0.1 L Direct Bilirubin 0.00 Indirect Bilirubin 0.1 Aspartate Amino Transf (AST/SGOT) 73 H Alanine Aminotransferase (ALT/SGPT) 63 Alkaline Phosphatase 672 H Total Protein 5.6 L Albumin 2.0 L Globulin 3.60 H Albumin/Globulin Ratio 0.55 Consultation Date/Type/Reason Admit Date/Time Mar 27, 2018 at 20:08 Initial Consult Date 04/02/18 Type of Consult ID Requesting Provider: DEENA BASILIO Exam/Review of Systems Vital Signs Vitals Vital Signs Date Temp Pulse Resp B/P (MAP) Pulse Ox O2 O2 Flow FiO2 Time Delivery Rate 04/16/18 79 08:40 04/16/18 98.2 17 122/59 95 07:18 (80) 04/13/18 Room Air 15:17 Intake and Output 04/15/18 04/15/18 04/16/18 1515:00 23:00 07:00 IntakeIntake Total 400 ml OutputOutput Total 900 ml BalanceBalance -500 ml Medications Medications Current Medications Ondansetron HCl (Zofran Inj) 4 mg Q6H PRN IV NAUSEA AND/OR VOMITING; Start 03/27/18 at 20:00 Acetaminophen (Tylenol Tab) 650 mg Q6H PRN PO PAIN LEVEL 1-3 OR FEVER Last adm inistered on 04/10/18 17:27; Admin Dose 650 MG; Start 03/27/18 at 20:00 Collagenase (Santyl) 1 applic DAILY TOP Last administered on 04/16/18 08:19; Admin Dose 1 APPLIC; Start 03/31/18 at 09:00 Mupirocin (Bactroban) 1 applic BID TOP Last administered on 04/16/18 08:19; Admin Dose 1 APPLIC; Start 03/31/18 at 11:00 Morphine Sulfate (morphine) 2 mg Q4H PRN IV PAIN LEVEL 7-10 Last administered on 04/05/18at 21:59; Admin Dose 2 MG; Start 04/05/18 at 17:22 Ascorbic Acid (Vitamin C) 500 mg DAILY NGT Last administered on 04/16/18 08:19; Admin Dose 500 MG; Start 04/09/18 at 14:00 Zinc Sulfate (Zinc Sulfate) 220 mg DAILY NGT Last administered on 04/16/18 08:19; Admin Dose 220 MG; Start 04/10/18 at 09:00 Lansoprazole (Prevacid) 30 mg BID@0600,1800 PO Last administered on 04/16/18 05:27; Admin Dose 30 MG; Start 04/14/18 at 18:00 DAVONTE MCMAHAN NP Apr 16, 2018 11:05
--- NOTE | 2018-04-16 11:39 | CONS ---
Date/Time of Note Date/Time of Note DATE: 04/16/18 TIME: 11:36 Consult Date/Type/Reason Admit Date/Time Mar 27, 2018 at 20:08 Initial Consult Date 03/29/18 Type of Consultation: Pulm/CCM Requesting Provider: DEENA BASILIO Subjective Remains stable. Objective Vital Signs Date Temp Pulse Resp B/P (MAP) Pulse Ox O2 O2 Flow FiO2 Time Delivery Rate 04/16/18 79 08:40 04/16/18 98.2 17 122/59 95 07:18 (80) 04/13/18 Room Air 15:17 Intake and Output 04/15/18 04/15/18 04/16/18 1515:00 23:00 07:00 IntakeIntake Total 400 ml OutputOutput Total 900 ml BalanceBalance -500 ml Exam GENERAL: Frail elderly gentleman comfortable at rest no acute distress VITAL SIGNS: per chart NECK: Supple. No JVD or lymphadenopathy. CARDIAC EXAM: S1, S2. No added sounds or murmurs. CHEST: clear bilaterally, No added sounds, rales or wheezes ABDOMEN: Soft, nontender. No guarding or rebound. EXTREMITIES: No cyanosis, clubbing or edema. NEUROLOGIC: Generalized weakness. No focal deficits. Results/Medications Result Diagram: 04/16/18 0539 04/16/18 0539 Results 24 hrs Laboratory Tests Test 04/16/18 00:34 04/16/18 05:39 Stool Occult Blood NEGATIVE White Blood Count 6.0 Red Blood Count 2.88 L Hemoglobin 8.0 L Hematocrit 25.8 L Mean Corpuscular Volume 89.6 Mean Corpuscular Hemoglobin 27.8 L Mean Corpuscular Hemoglobin Concent 31.0 L Red Cell Distribution Width 16.7 H Platelet Count 341 Mean Platelet Volume 11.9 H Immature Granulocytes % 0.700 H Neutrophils % 57.4 Lymphocytes % 25.5 Monocytes % 11.6 H Eosinophils % 4.0 Basophils % 0.8 Nucleated Red Blood Cells % 0.0 Immature Granulocytes # 0.040 H Neutrophils # 3.5 Lymphocytes # 1.5 Monocytes # 0.7 Eosinophils # 0.2 Basophils # 0.1 Nucleated Red Blood Cells # 0.0 Sodium Level 141 Potassium Level 4.3 Chloride Level 108 Carbon Dioxide Level 25 Anion Gap 8 Blood Urea Nitrogen 25 H Creatinine 0.80 Est Glomerular Filtrat Rate mL/min Glucose Level 94 Calcium Level 7.4 L Total Bilirubin 0.1 L Direct Bilirubin 0.00 Indirect Bilirubin 0.1 Aspartate Amino Transf (AST/SGOT) 73 H Alanine Aminotransferase (ALT/SGPT) 63 Alkaline Phosphatase 672 H Total Protein 5.6 L Albumin 2.0 L Globulin 3.60 H Albumin/Globulin Ratio 0.55 Medications Current Medications Ondansetron HCl (Zofran Inj) 4 mg Q6H PRN IV NAUSEA AND/OR VOMITING; Start 03/27/18 at 20:00 Acetaminophen (Tylenol Tab) 650 mg Q6H PRN PO PAIN LEVEL 1-3 OR FEVER Last administered on 04/10/18 17:27; Admin Dose 650 MG; Start 03/27/18 at 20:00 Collagenase (Santyl) 1 applic DAILY TOP Last administered on 04/16/18 08:19; Admin Dose 1 APPLIC; Start 03/31/18 at 09:00 Mupirocin (Bactroban) 1 applic BID TOP Last administered on 04/16/18 08:19; Admin Dose 1 APPLIC; Start 03/31/18 at 11:00 Morphine Sulfate (morphine) 2 mg Q4H PRN IV PAIN LEVEL 7-10 Last administered on 04/05/18at 21:59; Admin Dose 2 MG; Start 04/05/18 at 17:22 Ascorbic Acid (Vitamin C) 500 mg DAILY NGT Last administered on 04/16/18 08 :19; Admin Dose 500 MG; Start 04/09/18 at 14:00 Zinc Sulfate (Zinc Sulfate) 220 mg DAILY NGT Last administered on 04/16/18 08:19; Admin Dose 220 MG; Start 04/10/18 at 09:00 Lansoprazole (Prevacid) 30 mg BID@0600,1800 PO Last administered on 04/16/18 05:27; Admin Dose 30 MG; Start 04/14/18 at 18:00 Assessment/Plan Chief Complaint/Hosp Course IMP: 1. s/p Respiratory Failure--with hypoxemic component. Tachypnea likely due to metabolic acidosis 2/2 FLORES respiratory status improved 2. Urinary tract infection with septic shock--improved. 3. FLORES--likely pre-renal vs.ATN 4. Metabolic Acidosis 2/2 #3--improved 5. AMS--Dementia and uremia 6. HyperNa+ resolved. 7. s/p GI bleed RECS: 1. Continue bp management 2. Monitor off vasopressors 3. Aspiration precautions, free water 4. Follow H/H 5. Aspiration precautions aspiration precautions. SNF ? [facility] Apr 16, 2018 11:38
--- NOTE | 2018-04-16 15:52 | PN ---
Date/Time of Note Date/Time of Note DATE: 04/16/18 TIME: 15:50 Assessment/Plan VTE Prophylaxis Risk score (from Ns)>0 risk: 8 SCD applied (from Ns): Yes Pharmacological prophylaxis: NA/contraindicated Pharm contraindication: bleeding Lines/Catheters IV Catheter Type (from [facility]): Saline Lock Central line still needed: Yes Urinary Cath still in place: Yes Reason Cath still needed: urinary retention Assessment/Plan Hospital Course Patient tolerates mechanical soft diet will in addition to NG tube feeding, continue vitamin C zinc and multivitamins, deployment manager consult is appreciated if patient tolerates more than 60% of diet will consider discontinuing NG tube feeding. Assessment/Plan -Anemia secondary to GI bleed. Dr. Gomes is following in GI consultation. Transfuse as needed, monitor hemoglobin and hematocrit. -Bleeding gastric ulcers, s/p hemostasis with placement of hemoclip during EGD by Dr Guallpa on 04/03/18. Continue Protonix. -S/p septic shock secondary to urinary tract infection, continue antibiotics per ID. Dr. Guzman is following in infection disease consultation. -Hypoxemic respiratory failure, resolving. Dr. Nam is following in pulmonology consultation. -Acute kidney injury, resolved. Dr. Senior following in nephrology consultation. -Hypernatremia, resolved. -MRSA of nares, continue Bactroban -Dementia -Multiple pressure ulcers, optimize nutrition, continue vitamin C and zinc sulfate, off loading. -Protein calorie malnutrition Further recommendations based on clinical course. Plan of care discussed with Dr. Kiser. Result Diagram: 04/16/18 0539 04/16/1839 Results 24hrs Laboratory Tests Test 04/16/18 00:34 04/16/18 05:39 04/16/18 11:39 Stool Occult Blood NEGATIVE White Blood Count 6.0 Red Blood Count 2.88 L Hemoglobin 8.0 L Hematocrit 25.8 L Mean Corpuscular Volume 89.6 Mean Corpuscular Hemoglobin 27.8 L Mean Corpuscular Hemoglobin Concent 31.0 L Red Cell Distribution Width 16.7 H Platelet Count 341 Mean Platelet Volume 11.9 H Immature Granulocytes % 0.700 H Neutrophils % 57.4 Lymphocytes % 25.5 Monocytes % 11.6 H Eosinophils % 4.0 Basophils % 0.8 Nucleated Red Blood Cells % 0.0 Immature Granulocytes # 0.040 H Neutrophils # 3.5 Lymphocytes # 1.5 Monocytes # 0.7 Eosinophils # 0.2 Basophils # 0.1 Nucleated Red Blood Cells # 0.0 Sodium Level 141 Potassium Level 4.3 Chloride Level 108 Carbon Dioxide Level 25 Anion Gap 8 Blood Urea Nitrogen 25 H Creatinine 0.80 Est Glomerular Filtrat Rate mL/min Glucose Level 94 Calcium Level 7.4 L Total Bilirubin 0.1 L Direct Bilirubin 0.00 Indirect Bilirubin 0.1 Aspartate Amino Transf (AST/SGOT) 73 H Alanine Aminotransferase (ALT/SGPT) 63 Alkaline Phosphatase 672 H Total Protein 5.6 L Albumin 2.0 L Globulin 3.60 H Albumin/Globulin Ratio 0.55 Ammonia 14 Exam/Review of Systems Vital Signs Vitals Vital Signs Date Temp Pulse Resp B/P (MAP) Pulse Ox O2 O2 Flow FiO2 Time Delivery Rate 04/16/18 98.2 69 17 123/66 96 15:41 (85) 04/13/18 Room Air 15:17 Intake and Output 04/15/18 04/15/18 04/16/18 1515:00 23:00 07:00 IntakeIntake Total 400 ml OutputOutput Total 900 ml BalanceBalance -500 ml Exam Constitutional: alert, oriented, frail ENMT: nl external ears & nose, other (NGT) Respiratory: diminished breath sounds Cardiovascular: nl pulses Gastrointestinal: soft, non-tender Musculoskeletal: muscle weakness Extremities: normal pulses Neurological: confused Skin: nl turgor Medications Medications Current Medications Ondansetron HCl (Zofran Inj) 4 mg Q6H PRN IV NAUSEA AND/OR VOMITING; Start 03/27/18 at 20:00 Acetaminophen (Tylenol Tab) 650 mg Q6H PRN PO PAIN LEVEL 1-3 OR FEVER Last administered on 04/10/18 17:27; Admin Dose 650 MG; Start 03/27/18 at 20:00 Collagenase (Santyl) 1 applic DAILY TOP Last administered on 04/16/18 08:19; Admin Dose 1 APPLIC; Start 03/31/18 at 09:00 Mupirocin (Bactroban) 1 applic BID TOP Last administered on 04/16/18 08:19; Admin Dose 1 APPLIC; Start 03/31/18 at 11:00 Morphine Sulfate (morphine) 2 mg Q4H PRN IV PAIN LEVEL 7-10 Last administered on 1/5/19at 21:59; Admin Dose 2 MG; Start 04/05/18 at 17:22 Ascorbic Acid (Vitamin C) 500 mg DAILY NGT Last administered on 04/16/18at 08:19; Admin Dose 500 MG; Start 04/09/18 at 14:00 Zinc Sulfate (Zinc Sulfate) 220 mg DAILY NGT Last administered on 04/16/18at 08:19; Admin Dose 220 MG; Start 04/10/18 at 09:00 Lansoprazole (Prevacid) 30 mg BID@0600,1800 PO Last administered on 04/16/18at 05:27; Admin Dose 30 MG; Start 04/14/18 at 18:00 Multivitamins (Multivitamin) 30 ml DAILY NGT ; Start 04/16/18 at 16:30 JUDY CORNEJO Apr 16, 2018 15:52
[2018-04-16] MEDS: MULTIVITAMINS 30 ML CUP NGT SCH (17:49)
[2018-04-17 04:06] VITALS: BP 100/54; PULSE 84; RESP 19
[2018-04-17] MEDS: LANSOPRAZOLE 30 MG CAP PO SCH ×2 (05:51→17:10)
[2018-04-17 07:31] VITALS: BP 137/64; PULSE 81; RESP 20
[2018-04-17] MEDS: ASCORBIC ACID 500 MG TAB NGT SCH (09:14)
[2018-04-17] MEDS: ZINC SULFATE 220 MG CAP NGT SCH (09:14)
[2018-04-17] MEDS: MULTIVITAMINS 30 ML CUP NGT SCH (09:14)
[2018-04-17] MEDS: COLLAGENASE 5 GM (UD JAR) TOP SCH (09:14)
[2018-04-17] MEDS: BALSAM PERU/CASTOR OIL 60 GM TUBE TOP SCH ×2 (09:15→20:32)
[2018-04-17] MEDS: MUPIROCIN 2% 22 GM OINT TOP SCH ×2 (09:15→20:32)
--- NOTE | 2018-04-17 10:35 | CONS ---
Date/Time of Note Date/Time of Note DATE: 04/17/18 TIME: 10:34 Consult Date/Type/Reason Admit Date/Time Mar 27, 2018 at 20:08 Initial Consult Date 03/29/18 Type of Consultation: Pulm/CCM Requesting Provider: DEENA BASILIO Subjective No resp distress. Objective Vital Signs Date Temp Pulse Resp B/P (MAP) Pulse Ox O2 O2 Flow FiO2 Time Delivery Rate 04/17/18 97.9 81 20 137/64 95 07:31 (88) 04/17/18 Nasal 04:06 Cannula Intake and Output 04/16/18 04/16/18 04/17/18 1414:59 22:59 06:59 IntakeIntake Total 350 ml 850 ml OutputOutput Total 800 ml 1000 ml BalanceBalance -450 ml -150 ml Exam PHYSICAL EXAMINATION GENERAL: Chronically ill-appearing gentleman VITAL SIGNS: see below. HEENT: Pupils equal, round, and reactive to light. CARDIAC: S1, S2, 1/6 systolic ejection murmur CHEST: Diminished air entry bilaterally. ABDOMEN: Mildly distended. Bowel sounds present no guarding or rebound EXTREMITIES: No cyanosis, clubbing edema +1 NEUROLOGIC: Generalized weakness Results/Medications Result Diagram: 04/17/18 0558 04/17/18 0558 Results 24 hrs Laboratory Tests Test 04/16/18 11:39 04/17/18 05:58 Ammonia 14 [id number] 137 Anti-Nuclear Antibody Screen Pending Anti-Mitochondrial Antibody Pending Smooth Muscle Antibody Interpret Pending White Blood Count 6.3 Red Blood Count 2.85 L Hemoglobin 7.9 L Hematocrit 25.4 L Mean Corpuscular Volume 89.1 Mean Corpuscular Hemoglobin 27.7 L Mean Corpuscular Hemoglobin Concent 31.1 L Red Cell Distribution Width 16.6 H Platelet Count 411 # Mean Platelet Volume 11.6 H Immature Granulocytes % 0.800 H Neutrophils % 56.4 Segmented Neutrophils % (Manual) 39 Band Neutrophils % (Manual) 17 H Lymphocytes % 25.7 Lymphocytes % (Manual) 24 Reactive Lymphocytes % (Manual) 1 H Monocytes % 11.3 H Monocytes % (Manual) 10 Eosinophils % 5.2 Eosinophils % (Manual) 7 Basophils % 0.6 Myelocytes % (Manual) 2 H Nucleated Red Blood Cells % 0.0 Immature Granulocytes # 0.050 H Neutrophils # 3.6 Neutrophils # (Manual) 2.5 Band Neutrophils # 1.0 H Lymphocytes (Manual) 1.5 Lymphocytes # 1.6 Reactive Lymphocytes # 0.0 Monocytes # 0.7 Monocytes # (Manual) 0.6 Eosinophils # 0.3 Basophils # 0.0 Myelocytes # 0.1 H Nucleated Red Blood Cells # 0.0 Platelet Estimate NORMAL Giant Platelets 1 H Polychromasia 2+ Hypochromasia 1+ Anisocytosis 1+ Sodium Level 137 Potassium Level 4.0 Chloride Level 107 Carbon Dioxide Level 26 Anion Gap 4 L Blood Urea Nitrogen 23 H Creatinine 0.79 Est Glomerular Filtrat Rate mL/min Glucose Level 117 Calcium Level 7.7 L Medications Current Medications Ondansetron HCl (Zofran Inj) 4 mg Q6H PRN IV NAUSEA AND/OR VOMITING; Start 03/27/18 at 20:00 Acetaminophen (Tylenol Tab) 650 mg Q6H PRN PO PAIN LEVEL 1-3 OR FEVER Last administered on 04/10/18 17:27; Admin Dose 650 MG; Start 03/27/18 at 20:00 Collagenase (Santyl) 1 applic DAILY TOP Last administered on 04/17/18 09:14; Admin Dose 1 APPLIC; Start 03/31/18 at 09:00 Mupirocin (Bactroban) 1 applic BID TOP Last administered on 04/17/18 09:15; Admin Dose 1 APPLIC; Start 03/31/18 at 11:00 Morphine Sulfate (morphine) 2 mg Q4H PRN IV PAIN LEVEL 7-10 Last administered on 04/05/18 21:59; Admin Dose 2 MG; Start 04/05/18 at 17:22 Ascorbic Acid (Vitamin C) 500 mg DAILY NGT Last administered on 04/17/18 09:14; Admin Dose 500 MG; Start 04/09/18 at 14:00 Zinc Sulfate (Zinc Sulfate) 220 mg DAILY NGT Last administered on 04/17/18 09:14; Admin Dose 220 MG; Start 04/10/18 at 09:00 Lansoprazole (Prevacid) 30 mg BID@0600,1800 PO Last administered on 04/17/18 05:51; Admin Dose 30 MG; Start 04/14/18 at 18:00 Multivitamins (Multivitamin) 30 ml DAILY NGT Last administered on 04/17/18 09:14; Admin Dose 30 ML; Start 04/16/18 at 16:30 Assessment/Plan Chief Complaint/Hosp Course IMP: 1. s/p Respiratory Failure--with hypoxemic component. Tachypnea likely due to metabolic acidosis 2/2 FLORES respiratory status improved 2. Urinary tract infection with septic shock--improved. 3. FLORES--likely pre-renal vs.ATN 4. Metabolic Acidosis 2/2 #3--improved 5. AMS--Dementia and uremia 6. HyperNa+ resolved. 7. s/p GI bleed clipping. RECS: 1. Continue bp management 2. Aspiration precautions 3. PT as tolerated. SNF ? [facility] Apr 17, 2018 10:35
[2018-04-17 11:34] VITALS: BP 133/59; PULSE 84; RESP 24
--- NOTE | 2018-04-17 12:33 | CONS ---
Date/Time of Note Date/Time of Note DATE: 04/17/18 TIME: 12:33 Assessment/Plan Assessment/Plan Assessment/Plan 1. Acute kidney injury on CKD due to ATN + prerenal azotemia 2. acute blood loss anemia- 3. acute hyperkalemia- now resolved 4. acute hypoxemic resp failure 5. Sepsis due to acute UTI 6. Severe metabolic acidosis due to FLORES 7. Hypernatremia 8. Upper GI bleeding Plan: BUN/Cr 23/0.79, Na 137, BP stable without midodrine Renal US showed No evidence of hydronephrosis or mass, Nonobstructing intrarenal calculi are seen in the mid right kidney measuring 4 mm in 7 mm. 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.8 x 6.7 x 8.3 cm will follow up Result Diagram: 04/17/1858 04/17/18 0558 Results 24hrs Laboratory Tests Test 04/17/18 05:58 White Blood Count 6.3 Red Blood Count 2.85 L Hemoglobin 7.9 L Hematocrit 25.4 L Mean Corpuscular Volume 89.1 Mean Corpuscular Hemoglobin 27.7 L Mean Corpuscular Hemoglobin Concent 31.1 L Red Cell Distribution Width 16.6 H Platelet Count 411 # Mean Platelet Volume 11.6 H Immature Granulocytes % 0.800 H Neutrophils % 56.4 Segmented Neutrophils % (Manual) 39 Band Neutrophils % (Manual) 17 H Lymphocytes % 25.7 Lymphocytes % (Manual) 24 Reactive Lymphocytes % (Manual) 1 H Monocytes % 11.3 H Monocytes % (Manual) 10 Eosinophils % 5.2 Eosinophils % (Manual) 7 Basophils % 0.6 Myelocytes % (Manual) 2 H Nucleated Red Blood Cells % 0.0 Immature Granulocytes # 0.050 H Neutrophils # 3.6 Neutrophils # (Manual) 2.5 Band Neutrophils # 1.0 H Lymphocytes (Manual) 1.5 Lymphocytes # 1.6 Reactive Lymphocytes # 0.0 Monocytes # 0.7 Monocytes # (Manual) 0.6 Eosinophils # 0.3 Basophils # 0.0 Myelocytes # 0.1 H Nucleated Red Blood Cells # 0.0 Platelet Estimate NORMAL Giant Platelets 1 H Polychromasia 2+ Hypochromasia 1+ Anisocytosis 1+ Sodium Level 137 Potassium Level 4.0 Chloride Level 107 Carbon Dioxide Level 26 Anion Gap 4 L Blood Urea Nitrogen 23 H Creatinine 0.79 Est Glomerular Filtrat Rate mL/min Glucose Level 117 Calcium Level 7.7 L Consultation Date/Type/Reason Admit Date/Time Mar 27, 2018 at 20:08 Initial Consult Date 03/31/18 Type of Consult NEPHROLOGY Requesting Provider: DEENA BASILIO Exam/Review of Systems Vital Signs Vitals Vital Signs Date Temp Pulse Resp B/P (MAP) Pulse Ox O2 O2 Flow FiO2 Time Delivery Rate 04/17/18 98.6 84 24 133/59 96 Room Air 11:34 (83) Intake and Output 04/16/18 04/16/18 04/17/18 1515:00 23:00 07:00 IntakeIntake Total 350 ml 850 ml OutputOutput Total 800 ml 1000 ml BalanceBalance -450 ml -150 ml Exam Constitutional: alert Psych: no complaints Head: normocephalic ENMT: nl external ears & nose Neck: supple, non-tender Respiratory: clear to auscultation, normal air movement, diminished breath sounds Cardiovascular: regular rate and rhythm, nl pulses Gastrointestinal: soft, non-tender Musculoskeletal: nl extremities to inspection Medications Medications Current Medications Ondansetron HCl (Zofran Inj) 4 mg Q6H PRN IV NAUSEA AND/OR VOMITING; Start 03/27/18 at 20:00 Acetaminophen (Tylenol Tab) 650 mg Q6H PRN PO PAIN LEVEL 1-3 OR FEVER Last administered on 04/10/18 17:27; Admin Dose 650 MG; Start 03/27/18 at 20:00 Collagenase (Santyl) 1 applic DAILY TOP Last administered on 04/17/18 09:14; Admin Dose 1 APPLIC; Start 03/31/18 at 09:00 Mupirocin (Bactroban) 1 applic BID TOP Last administered on 04/17/18 09:15; Admin Dose 1 APPLIC; Start 03/31/18 at 11:00 Morphine Sulfate (morphine) 2 mg Q4H PRN IV PAIN LEVEL 7-10 Last administered on 04/05/18 21:59; Admin Dose 2 MG; Start 04/05/18 at 17:22 Ascorbic Acid (Vitamin C) 500 mg DAILY NGT Last administered on 04/17/18 09:14; Admin Dose 500 MG; Start 04/09/18 at 14:00 Zinc Sulfate (Zinc Sulfate) 220 mg DAILY NGT Last administered on 1/17/19at 09:14; Admin Dose 220 MG; Start 04/10/18 at 09:00 Lansoprazole (Prevacid) 30 mg BID@0600,1800 PO Last administered on 04/17/18at 05:51; Admin Dose 30 MG; Start 04/14/18 at 18:00 Multivitamins (Multivitamin) 30 ml DAILY NGT Last administered on 04/17/18at 09:14; Admin Dose 30 ML; Start 04/16/18 at 16:30 STEVEN BLANCO MD Apr 17, 2018 12:33
--- NOTE | 2018-04-17 12:47 | PN ---
Date/Time of Note Date/Time of Note DATE: 04/17/18 TIME: 12:45 Assessment/Plan VTE Prophylaxis Risk score (from Ns)>0 risk: 8 SCD applied (from Ns): Yes Pharmacological prophylaxis: NA/contraindicated, other Pharm contraindication: other Lines/Catheters IV Catheter Type (from Nrs): Saline Lock Central line still needed: No Urinary Cath still in place: Yes Reason Cath still needed: urinary retention Assessment/Plan Hospital Course Patient awake alert to name otherwise pleasantly confused, able to tolerate p.o. diet in addition to NG tube feeding. Assessment/Plan -Anemia secondary to GI bleed. Dr. Gomes is following in GI consultation. Transfuse as needed, monitor hemoglobin and hematocrit. -Bleeding gastric ulcers, s/p hemostasis with placement of hemoclip during EGD by Dr Guallpa on 04/03/18. Continue Protonix. -S/p septic shock secondary to urinary tract infection, continue antibiotics per ID. Dr. Guzman is following in infection disease consultation. -Hypoxemic respiratory failure, resolving. Dr. Nam is following in pulmonology consultation. -Acute kidney injury, resolved. Dr. Senior following in nephrology consultation. -Hypernatremia, resolved. -MRSA of nares, continue Bactroban -Dementia -Multiple pressure ulcers, optimize nutrition, continue vitamin C and zinc sul fate, off loading. -Protein calorie malnutrition Further recommendations based on clinical course. Plan of care discussed with Dr. Kiser. Result Diagram: 04/17/18 0558 04/17/18 0558 Results 24hrs Laboratory Tests Test 04/17/18 05:58 White Blood Count 6.3 Red Blood Count 2.85 L Hemoglobin 7.9 L Hematocrit 25.4 L Mean Corpuscular Volume 89.1 Mean Corpuscular Hemoglobin 27.7 L Mean Corpuscular Hemoglobin Concent 31.1 L Red Cell Distribution Width 16.6 H Platelet Count 411 # Mean Platelet Volume 11.6 H Immature Granulocytes % 0.800 H Neutrophils % 56.4 Segmented Neutrophils % (Manual) 39 Band Neutrophils % (Manual) 17 H Lymphocytes % 25.7 Lymphocytes % (Manual) 24 Reactive Lymphocytes % (Manual) 1 H Monocytes % 11.3 H Monocytes % (Manual) 10 Eosinophils % 5.2 Eosinophils % (Manual) 7 Basophils % 0.6 Myelocytes % (Manual) 2 H Nucleated Red Blood Cells % 0.0 Immature Granulocytes # 0.050 H Neutrophils # 3.6 Neutrophils # (Manual) 2.5 Band Neutrophils # 1.0 H Lymphocytes (Manual) 1.5 Lymphocytes # 1.6 Reactive Lymphocytes # 0.0 Monocytes # 0.7 Monocytes # (Manual) 0.6 Eosinophils # 0.3 Basophils # 0.0 Myelocytes # 0.1 H Nucleated Red Blood Cells # 0.0 Platelet Estimate NORMAL Giant Platelets 1 H Polychromasia 2+ Hypochromasia 1+ Anisocytosis 1+ Sodium Level 137 Potassium Level 4.0 Chloride Level 107 Carbon Dioxide Level 26 Anion Gap 4 L Blood Urea Nitrogen 23 H Creatinine 0.79 Est Glomerular Filtrat Rate mL/min Glucose Level 117 Calcium Level 7.7 L Exam/Review of Systems Vital Signs Vitals Vital Signs Date Temp Pulse Resp B/P (MAP) Pulse Ox O2 O2 Flow FiO2 Time Delivery Rate 04/17/18 98.6 84 24 133/59 96 Room Air 11:34 (83) Intake and Output 04/16/18 04/16/18 04/17/18 1515:00 23:00 07:00 IntakeIntake Total 350 ml 850 ml OutputOutput Total 800 ml 1000 ml BalanceBalance -450 ml -150 ml Exam Constitutional: alert, oriented, frail ENMT: nl external ears & nose, other (NGT) Respiratory: diminished breath sounds Cardiovascular: nl pulses Gastrointestinal: soft, non-tender Musculoskeletal: muscle weakness Extremities: normal pulses Neurological: confused Skin: nl turgor Medications Medications Current Medications Ondansetron HCl (Zofran Inj) 4 mg Q6H PRN IV NAUSEA AND/OR VOMITING; Start 03/27/18 at 20:00 Acetaminophen (Tylenol Tab) 650 mg Q6H PRN PO PAIN LEVEL 1-3 OR FEVER Last administered on 04/10/18 17:27; Admin Dose 650 MG; Start 03/27/18 at 20:00 Collagenase (Santyl) 1 applic DAILY TOP Last administered on 04/17/18 09:14; Admin Dose 1 APPLIC; Start 03/31/18 at 09:00 Mupirocin (Bactroban) 1 applic BID TOP Last administered on 04/17/18 09:15; Admin Dose 1 APPLIC; Start 03/31/18 at 11:00 Morphine Sulfate (morphine) 2 mg Q4H PRN IV PAIN LEVEL 7-10 Last administered on 04/05/18at 21:59; Admin Dose 2 MG; Start 04/05/18 at 17:22 Ascorbic Acid (Vitamin C) 500 mg DAILY NGT Last administered on 04/17/18at 09:14; Admin Dose 500 MG; Start 04/09/18 at 14:00 Zinc Sulfate (Zinc Sulfate) 220 mg DAILY NGT Last administered on 04/17/18at 09:14; Admin Dose 220 MG; Start 04/10/18 at 09:00 Lansoprazole (Prevacid) 30 mg BID@0600,1800 PO Last administered on 04/17/18at 05:51; Admin Dose 30 MG; Start 04/14/18 at 18:00 Multivitamins (Multivitamin) 30 ml DAILY NGT Last administered on 04/17/18at 09:14; Admin Dose 30 ML; Start 04/16/18 at 16:30 JUDY CORNEJO Apr 17, 2018 12:47
--- NOTE | 2018-04-17 13:20 | CONS ---
Date/Time of Note Date/Time of Note DATE: 04/17/18 TIME: 13:19 Assessment/Plan Assessment/Plan Hospital Course All noted, no acute events, pt is alert, feels good, no fevers Indwelling: NG tube Honeycutt Physical examination: Well-developed chronically ill-appearing wasted elderly man who is in no distress. Head atraumatic normocephalic sclera nonicteric. Neck is supple chest rise symmetrical breath sounds diminished bases. Heart: S1-S2 abdomen distended tender on palpation extremities without cyanosis Assessment: 1. Resolved leukocytosis, status post septic shock 2. Status post GI bleeding===> EGD with Hemoclip placement 3. S/p E. coli ESBL UTI, now + yeast 4. MRSA nares colonization 5. Dysphagia 6. Dementia Plan: Remains stable, continue observing off antibiotics Result Diagram: 04/17/1858 04/17/18 0558 Results 24hrs Laboratory Tests Test 04/17/18 05:58 White Blood Count 6.3 Red Blood Count 2.85 L Hemoglobin 7.9 L Hematocrit 25.4 L Mean Corpuscular Volume 89.1 Mean Corpuscular Hemoglobin 27.7 L Mean Corpuscular Hemoglobin Concent 31.1 L Red Cell Distribution Width 16.6 H Platelet Count 411 # Mean Platelet Volume 11.6 H Immature Granulocytes % 0.800 H Neutrophils % 56.4 Segmented Neutrophils % (Manual) 39 Band Neutrophils % (Manual) 17 H Lymphocytes % 25.7 Lymphocytes % (Manual) 24 Reactive Lymphocytes % (Manual) 1 H Monocytes % 11.3 H Monocytes % (Manual) 10 Eosinophils % 5.2 Eosinophils % (Manual) 7 Basophils % 0.6 Myelocytes % (Manual) 2 H Nucleated Red Blood Cells % 0.0 Immature Granulocytes # 0.050 H Neutrophils # 3.6 Neutrophils # (Manual) 2.5 Band Neutrophils # 1.0 H Lymphocytes (Manual) 1.5 Lymphocytes # 1.6 Reactive Lymphocytes # 0.0 Monocytes # 0.7 Monocytes # (Manual) 0.6 Eosinophils # 0.3 Basophils # 0.0 Myelocytes # 0.1 H Nucleated Red Blood Cells # 0.0 Platelet Estimate NORMAL Giant Platelets 1 H Polychromasia 2+ Hypochromasia 1+ Anisocytosis 1+ Sodium Level 137 Potassium Level 4.0 Chloride Level 107 Carbon Dioxide Level 26 Anion Gap 4 L Blood Urea Nitrogen 23 H Creatinine 0.79 Est Glomerular Filtrat Rate mL/min Glucose Level 117 Calcium Level 7.7 L Consultation Date/Type/Reason Admit Date/Time Mar 27, 2018 at 20:08 Initial Consult Date 04/02/18 Type of Consult ID Requesting Provider: DEENA BASILIO Exam/Review of Systems Vital Signs Vitals Vital Signs Date Temp Pulse Resp B/P (MAP) Pulse Ox O2 O2 Flow FiO2 Time Delivery Rate 04/17/18 98.6 84 24 133/59 96 Room Air 11:34 (83) Intake and Output 04/16/18 04/16/18 04/17/18 1515:00 23:00 07:00 IntakeIntake Total 350 ml 850 ml OutputOutput Total 800 ml 1000 ml BalanceBalance -450 ml -150 ml Medications Medications Current Medications Ondansetron HCl (Zofran Inj) 4 mg Q6H PRN IV NAUSEA AND/OR VOMITING; Start 03/27/18 at 20:00 Acetaminophen (Tylenol Tab) 650 mg Q6H PRN PO PAIN LEVEL 1-3 OR FEVER Last administered on 04/10/18 17:27; Admin Dose 650 MG; Start 03/27/18 at 20:00 Collagenase (Santyl) 1 applic DAILY TOP Last administered on 04/17/18 09:14; Admin Dose 1 APPLIC; Start 03/31/18 at 09:00 Mupirocin (Bactroban) 1 applic BID TOP Last administered on 04/17/18 09:15; Admin Dose 1 APPLIC; Start 03/31/18 at 11:00 Morphine Sulfate (morphine) 2 mg Q4H PRN IV PAIN LEVEL 7-10 Last administered on 04/05/18at 21:59; Admin Dose 2 MG; Start 04/05/18 at 17:22 Ascorbic Acid (Vitamin C) 500 mg DAILY NGT Last administered on 04/17/18 09:14; Admin Dose 500 MG; Start 04/09/18 at 14:00 Zinc Sulfate (Zinc Sulfate) 220 mg DAILY NGT Last administered on 04/17/18 09:14; Admin Dose 220 MG; Start 04/10/18 at 09:00 Lansoprazole (Prevacid) 30 mg BID@0600,1800 PO Last administered on 04/17/18 05:51; Admin Dose 30 MG; Start 1/14/19 at 18:00 Multivitamins (Multivitamin) 30 ml DAILY NGT Last administered on 04/17/18at 09:14; Admin Dose 30 ML; Start 04/16/18 at 16:30 DAVONTE MCMAHAN NP Apr 17, 2018 13:20
[2018-04-17 15:32] VITALS: BP 117/59; PULSE 90; RESP 24
[2018-04-17 20:15] VITALS: BP 138/63; PULSE 94; RESP 18
[2018-04-18] VITALS (7 sets, daily range): BP systolic 118–143; BP diastolic 58–65; PULSE 19–94; RESP 16–24
[2018-04-18] MEDS: LANSOPRAZOLE 30 MG CAP PO SCH ×2 (05:52→18:19)
[2018-04-18] MEDS: COLLAGENASE 5 GM (UD JAR) TOP SCH (08:02)
[2018-04-18] MEDS: BALSAM PERU/CASTOR OIL 60 GM TUBE TOP SCH ×2 (08:02→20:42)
[2018-04-18] MEDS: MUPIROCIN 2% 22 GM OINT TOP SCH ×2 (08:02→20:42)
--- NOTE | 2018-04-18 08:49 | CONS ---
Date/Time of Note Date/Time of Note DATE: 04/18/18 TIME: 08:40 Assessment/Plan Assessment/Plan Hospital Course 88 yo male presented with urosepsis and respiratory failure and coffee ground emesis 1. Upper GI bleed manifested through coffee ground emesis and melena -s/p EGD -resolved 2. Gastric ulcers, etiology of bleed 3. Hiatal hernia 4. Anemia secondary to gastric ulcer bleeding -stable but slowly trending down, no active GI bleeding noted, FOB neg 04/16 -monitor closely 5. E. coli, yeast (04/06) in urine, wbc trending down 6. Dysphagia -improving 7. Malnutrition. 8. Transaminitis -alk 742, alt 70, ast 101 -trending downward, US suggests cirrhosis 9. Coarse slightly nodular liver suggesting cirrhosis -Ammonia level 14, Hep panel unremarkable, alpha 1 anti trypsin 137 (nl), EMELY screen neg, anti mitochondrial antib neg, Smooth muscle titer 1:40, smooth muscle ab interp POS, US of upper abd 04/15: 1. Coarse slightly nodular liver suggesting cirrhosis. No focal hepatic masses. 2. Cholelithiasis. There is thickening of the gallbladder wall which is nonspecific finding. Clinical correlation is recommended to exclude acute or chronic cholecystitis. 3. No biliary duct dilatation. 4. Small ascites and right pleural effusion. 5. Pancreas not visualized Plan: MRCP was cancelled because pt is unable to tell us if he has metal in body, no family. CT of abd does not show metal. US of abd done instead. Monitor LFTs Monitor HH closely, no evidence of active GI bleeding, continue with PPI BID Consider PEG Aspiration precautions No NSAIDs Monitor HH and transfuse as necessary Monitor for acute GI bleeding Pt examined and plan of care discussed with Dr. Gomes Result Diagram: 04/18/18 0546 04/18/18 0546 Results 24hrs Laboratory Tests Test 04/18/18 05:46 White Blood Count 7.0 Red Blood Count 2.83 L Hemoglobin 8.0 L Hematocrit 25.7 L Mean Corpuscular Volume 90.8 Mean Corpuscular Hemoglobin 28.3 L Mean Corpuscular Hemoglobin Concent 31.1 L Red Cell Distribution Width 16.6 H Platelet Count 431 H Mean Platelet Volume 11.8 H Immature Granulocytes % 1.600 H Neutrophils % 56.8 Segmented Neutrophils % (Manual) 46 Band Neutrophils % (Manual) 16 H Lymphocytes % 25.0 Lymphocytes % (Manual) 23 Monocytes % 9.9 Monocytes % (Manual) 4 Eosinophils % 6.1 Eosinophils % (Manual) 9 H Basophils % 0.6 Metamyelocytes % (manual) 1 H Myelocytes % (Manual) 1 H Nucleated Red Blood Cells % 0.0 Immature Granulocytes # 0.110 H Neutrophils # 4.0 Neutrophils # (Manual) 3.3 Band Neutrophils # 1.1 H Lymphocytes (Manual) 1.6 Lymphocytes # 1.8 Monocytes # 0.7 Monocytes # (Manual) 0.2 L Eosinophils # 0.4 Basophils # 0.0 Metamyelocytes # 0.0 Myelocytes # 0.0 Nucleated Red Blood Cells # 0.0 Platelet Estimate NORMAL Giant Platelets 2 H Polychromasia 1+ Hypochromasia 1+ Sodium Level 137 Potassium Level 4.1 Chloride Level 104 Carbon Dioxide Level 30 Anion Gap 3 L Blood Urea Nitrogen 23 H Creatinine 0.87 Est Glomerular Filtrat Rate mL/min Glucose Level 105 Calcium Level 7.8 L Consultation Date/Type/Reason Admit Date/Time Mar 27, 2018 at 20:08 Initial Consult Date 04/02/18 Requesting Provider: DEENA BASILIO 24 HR Interval Summary Free Text/Dictation BM this am, no evidence of GI bleeding endorsed. FOB negative. No residuals. Tube feeds at 60cc/hr. Pt denies abd pain or pain to palpitation of abd Pending conservatorship Exam/Review of Systems Vital Signs Vitals Vital Signs Date Temp Pulse Resp B/P (MAP) Pulse Ox O2 O2 Flow FiO2 Time Delivery Rate 04/18/18 Room Air 08:30 04/18/18 97.7 76 20 118/58 96 07:41 (78) Intake and Output 04/17/18 04/17/18 04/18/18 1515:00 23:00 07:00 IntakeIntake Total 480 ml 1070 ml OutputOutput Total 400 ml 950 ml BalanceBalance 80 ml 120 ml Exam Constitutional: alert Psych: no complaints Respiratory: clear to auscultation, diminished breath sounds Cardiovascular: regular rate and rhythm Gastrointestinal: soft, non-tender Medications Medications Current Medications Ondansetron HCl (Zofran Inj) 4 mg Q6H PRN IV NAUSEA AND/OR VOMITING; Start 03/27/18 at 20:00 Acetaminophen (Tylenol Tab) 650 mg Q6H PRN PO PAIN LEVEL 1-3 OR FEVER Last administered on 04/10/18 17:27; Admin Dose 650 MG; Start 03/27/18 at 20:00 Collagenase (Santyl) 1 applic DAILY TOP Last administered on 04/17/18 09:14; Admin Dose 1 APPLIC; Start 03/31/18 at 09:00 Mupirocin (Bactroban) 1 applic BID TOP Last administered on 04/18/18 08:02; Admin Dose 1 APPLIC; Start 03/31/18 at 11:00 Morphine Sulfate (morphine) 2 mg Q4H PRN IV PAIN LEVEL 7-10 Last administered on 04/05/18 21:59; Admin Dose 2 MG; Start 04/05/18 at 17:22 Ascorbic Acid (Vitamin C) 500 mg DAILY NGT Last administered on 04/17/18 09:14; Admin Dose 500 MG; Start 04/09/18 at 14:00 Zinc Sulfate (Zinc Sulfate) 220 mg DAILY NGT Last administered on 04/17/18 09:14; Admin Dose 220 MG; Start 04/10/18 at 09:00 Lansoprazole (Prevacid) 30 mg BID@0600,1800 PO Last administered on 04/18/18 05:52; Admin Dose 30 MG; Start 04/14/18 at 18:00 Multivitamins (Multivitamin) 30 ml DAILY NGT Last administered on 04/17/18 09:14; Admin Dose 30 ML; Start 04/16/18 at 16:30 SOREN DOVE Apr 18, 2018 08:49
[2018-04-18] MEDS: ASCORBIC ACID 500 MG TAB NGT SCH (08:52)
[2018-04-18] MEDS: ZINC SULFATE 220 MG CAP NGT SCH (08:52)
[2018-04-18] MEDS: MULTIVITAMINS 30 ML CUP NGT SCH (08:52)
--- NOTE | 2018-04-18 12:26 | CONS ---
Date/Time of Note Date/Time of Note DATE: 04/18/18 TIME: 12:25 Consult Date/Type/Reason Admit Date/Time Mar 27, 2018 at 20:08 Initial Consult Date 03/29/18 Type of Consultation: Pulm/CCM Requesting Provider: DEENA BASILIO Subjective NG tube in place No resp distress. Objective Vital Signs Date Temp Pulse Resp B/P (MAP) Pulse Ox O2 O2 Flow FiO2 Time Delivery Rate 04/18/18 Room Air 12:13 04/18/18 99.0 89 24 121/60 94 11:22 (80) Intake and Output 04/17/18 04/17/18 04/18/18 1414:59 22:59 06:59 IntakeIntake Total 480 ml 1070 ml OutputOutput Total 400 ml 950 ml BalanceBalance 80 ml 120 ml Exam PHYSICAL EXAMINATION GENERAL: Chronically ill-appearing gentleman VITAL SIGNS: see below. HEENT: Pupils equal, round, and reactive to light. CARDIAC: S1, S2, 1/6 systolic ejection murmur CHEST: Diminished air entry bilaterally. ABDOMEN: Mildly distended. Bowel sounds present no guarding or rebound EXTREMITIES: No cyanosis, clubbing edema +1 NEUROLOGIC: Generalized weakness Results/Medications Result Diagram: 04/18/18 0546 04/18/18 0546 Results 24 hrs Laboratory Tests Test 04/18/18 05:46 White Blood Count 7.0 Red Blood Count 2.83 L Hemoglobin 8.0 L Hematocrit 25.7 L Mean Corpuscular Volume 90.8 Mean Corpuscular Hemoglobin 28.3 L Mean Corpuscular Hemoglobin Concent 31.1 L Red Cell Distribution Width 16.6 H Platelet Count 431 H Mean Platelet Volume 11.8 H Immature Granulocytes % 1.600 H Neutrophils % 56.8 Segmented Neutrophils % (Manual) 46 Band Neutrophils % (Manual) 16 H Lymphocytes % 25.0 Lymphocytes % (Manual) 23 Monocytes % 9.9 Monocytes % (Manual) 4 Eosinophils % 6.1 Eosinophils % (Manual) 9 H Basophils % 0.6 Metamyelocytes % (manual) 1 H Myelocytes % (Manual) 1 H Nucleated Red Blood Cells % 0.0 Immature Granulocytes # 0.110 H Neutrophils # 4.0 Neutrophils # (Manual) 3.3 Band Neutrophils # 1.1 H Lymphocytes (Manual) 1.6 Lymphocytes # 1.8 Monocytes # 0.7 Monocytes # (Manual) 0.2 L Eosinophils # 0.4 Basophils # 0.0 Metamyelocytes # 0.0 Myelocytes # 0.0 Nucleated Red Blood Cells # 0.0 Platelet Estimate NORMAL Giant Platelets 2 H Polychromasia 1+ Hypochromasia 1+ Sodium Level 137 Potassium Level 4.1 Chloride Level 104 Carbon Dioxide Level 30 Anion Gap 3 L Blood Urea Nitrogen 23 H Creatinine 0.87 Est Glomerular Filtrat Rate mL/min Glucose Level 105 Calcium Level 7.8 L Total Bilirubin 0.0 L Direct Bilirubin 0.00 Indirect Bilirubin 0.0 Aspartate Amino Transf (AST/SGOT) 60 H Alanine Aminotransferase (ALT/SGPT) 60 Alkaline Phosphatase 677 H Total Protein 5.4 L Albumin 2.1 L Medications Current Medications Ondansetron HCl (Zofran Inj) 4 mg Q6H PRN IV NAUSEA AND/OR VOMITING; Start 03/27/18 at 20:00 Acetaminophen (Tylenol Tab) 650 mg Q6H PRN PO PAIN LEVEL 1-3 OR FEVER Last administered on 04/10/18 17:27; Admin Dose 650 MG; Start 03/27/18 at 20:00 Collagenase (Santyl) 1 applic DAILY TOP Last administered on 04/17/18 09:14; Admin Dose 1 APPLIC; Start 03/31/18 at 09:00 Mupirocin (Bactroban) 1 applic BID TOP Last administered on 04/18/18 08:02; Admin Dose 1 APPLIC; Start 03/31/18 at 11:00 Morphine Sulfate (morphine) 2 mg Q4H PRN IV PAIN LEVEL 7-10 Last administered on 04/05/18 21:59; Admin Dose 2 MG; Start 04/05/18 at 17:22 Ascorbic Acid (Vitamin C) 500 mg DAILY NGT Last administered on 04/18/18 08:52; Admin Dose 500 MG; Start 04/09/18 at 14:00 Zinc Sulfate (Zinc Sulfate) 220 mg DAILY NGT Last administered on 04/18/18 08:52; Admin Dose 220 MG; Start 04/10/18 at 09:00 Lansoprazole (Prevacid) 30 mg BID@0600,1800 PO Last administered on 04/18/18 05:52; Admin Dose 30 MG; Start 04/14/18 at 18:00 Multivitamins (Multivitamin) 30 ml DAILY NGT Last administered on 04/18/18at 08:52; Admin Dose 30 ML; Start 04/16/18 at 16:30 Assessment/Plan Chief Complaint/Hosp Course IMP: 1. s/p Respiratory Failure--with hypoxemic component. Tachypnea likely due to metabolic acidosis 2/2 FLORES respiratory status improved 2. Urinary tract infection with septic shock--improved. 3. FLORES--likely pre-renal vs.ATN 4. Metabolic Acidosis 2/2 #3--improved 5. AMS--Dementia and uremia 6. HyperNa+ resolved. 7. s/p GI bleed clipping. RECS: 1. Continue bp management 2. Aspiration precautions 3. PT as tolerated. 4. GI recs SNF ? med surg ? BARBIE SAEED MD, [facility] Apr 18, 2018 12:26
--- NOTE | 2018-04-18 12:26 | CONS ---
Date/Time of Note Date/Time of Note DATE: 04/18/18 TIME: 12:26 Assessment/Plan Assessment/Plan Assessment/Plan 1. Acute kidney injury on CKD due to ATN + prerenal azotemia 2. acute blood loss anemia- 3. acute hyperkalemia- now resolved 4. acute hypoxemic resp failure 5. Sepsis due to acute UTI 6. Severe metabolic acidosis due to FLORES 7. Hypernatremia 8. Upper GI bleeding Plan: BUN/Cr 23/0.87, Na 137, BP stable without midodrine Renal US showed No evidence of hydronephrosis or mass, Nonobstructing intrarenal calculi are seen in the mid right kidney measuring 4 mm in 7 mm. 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.8 x 6.7 x 8.3 cm will follow up Result Diagram: 04/18/18 0546 04/18/18 0546 Results 24hrs Laboratory Tests Test 04/18/18 05:46 White Blood Count 7.0 Red Blood Count 2.83 L Hemoglobin 8.0 L Hematocrit 25.7 L Mean Corpuscular Volume 90.8 Mean Corpuscular Hemoglobin 28.3 L Mean Corpuscular Hemoglobin Concent 31.1 L Red Cell Distribution Width 16.6 H Platelet Count 431 H Mean Platelet Volume 11.8 H Immature Granulocytes % 1.600 H Neutrophils % 56.8 Segmented Neutrophils % (Manual) 46 Band Neutrophils % (Manual) 16 H Lymphocytes % 25.0 Lymphocytes % (Manual) 23 Monocytes % 9.9 Monocytes % (Manual) 4 Eosinophils % 6.1 Eosinophils % (Manual) 9 H Basophils % 0.6 Metamyelocytes % (manual) 1 H Myelocytes % (Manual) 1 H Nucleated Red Blood Cells % 0.0 Immature Granulocytes # 0.110 H Neutrophils # 4.0 Neutrophils # (Manual) 3.3 Band Neutrophils # 1.1 H Lymphocytes (Manual) 1.6 Lymphocytes # 1.8 Monocytes # 0.7 Monocytes # (Manual) 0.2 L Eosinophils # 0.4 Basophils # 0.0 Metamyelocytes # 0.0 Myelocytes # 0.0 Nucleated Red Blood Cells # 0.0 Platelet Estimate NORMAL Giant Platelets 2 H Polychromasia 1+ Hypochromasia 1+ Sodium Level 137 Potassium Level 4.1 Chloride Level 104 Carbon Dioxide Level 30 Anion Gap 3 L Blood Urea Nitrogen 23 H Creatinine 0.87 Est Glomerular Filtrat Rate mL/min Glucose Level 105 Calcium Level 7.8 L Total Bilirubin 0.0 L Direct Bilirubin 0.00 Indirect Bilirubin 0.0 Aspartate Amino Transf (AST/SGOT) 60 H Alanine Aminotransferase (ALT/SGPT) 60 Alkaline Phosphatase 677 H Total Protein 5.4 L Albumin 2.1 L Consultation Date/Type/Reason Admit Date/Time Mar 27, 2018 at 20:08 Initial Consult Date 03/31/18 Type of Consult NEPHROLOGY Requesting Provider: DEENA BASILIO Exam/Review of Systems Vital Signs Vitals Vital Signs Date Temp Pulse Resp B/P (MAP) Pulse Ox O2 O2 Flow FiO2 Time Delivery Rate 04/18/18 Room Air 12:13 04/18/18 99.0 89 24 121/60 94 11:22 (80) Intake and Output 04/17/18 04/17/18 04/18/18 1515:00 23:00 07:00 IntakeIntake Total 480 ml 1070 ml OutputOutput Total 400 ml 950 ml BalanceBalance 80 ml 120 ml Exam Constitutional: alert Psych: no complaints Head: normocephalic ENMT: nl external ears & nose Neck: supple, non-tender Respiratory: clear to auscultation, normal air movement, diminished breath sounds Cardiovascular: regular rate and rhythm, nl pulses Gastrointestinal: soft, non-tender Musculoskeletal: nl extremities to inspection Medications Medications Current Medications Ondansetron HCl (Zofran Inj) 4 mg Q6H PRN IV NAUSEA AND/OR VOMITING; Start 03/27/18 at 20:00 Acetaminophen (Tylenol Tab) 650 mg Q6H PRN PO PAIN LEVEL 1-3 OR FEVER Last administered on 04/10/18at 17:27; Admin Dose 650 MG; Start 03/27/18 at 20:00 Collagenase (Santyl) 1 applic DAILY TOP Last administered on 04/17/18 09:14; Admin Dose 1 APPLIC; Start 03/31/18 at 09:00 Mupirocin (Bactroban) 1 applic BID TOP Last administered on 04/18/18 08:02; Admin Dose 1 APPLIC; Start 03/31/18 at 11:00 Morphine Sulfate (morphine) 2 mg Q4H PRN IV PAIN LEVEL 7-10 Last administered on 04/05/18at 21:59; Admin Dose 2 MG; Start 04/05/18 at 17:22 Ascorbic Acid (Vitamin C) 500 mg DAILY NGT Last administered on 04/18/18 08:52; Admin Dose 500 MG; Start 04/09/18 at 14:00 Zinc Sulfate (Zinc Sulfate) 220 mg DAILY NGT Last administered on 04/18/18 08:52; Admin Dose 220 MG; Start 04/10/18 at 09:00 Lansoprazole (Prevacid) 30 mg BID@0600,1800 PO Last administered on 04/18/18 05:52; Admin Dose 30 MG; Start 04/14/18 at 18:00 Multivitamins (Multivitamin) 30 ml DAILY NGT Last administered on 04/18/18 08:52; Admin Dose 30 ML; Start 04/16/18 at 16:30 STEVEN BLANCO MD Apr 18, 2018 12:26
--- NOTE | 2018-04-18 15:21 | CONS ---
Date/Time of Note Date/Time of Note DATE: 04/18/18 TIME: 15:20 Assessment/Plan Assessment/Plan Hospital Course Alert, looks comfortable no fevers Indwelling: NG tube Honeycutt Physical examination: Well-developed chronically ill-appearing wasted elderly man who is in no distress. Head atraumatic normocephalic sclera nonicteric. Neck is supple chest rise symmetrical breath sounds diminished bases. Heart: S1-S2 abdomen distended tender on palpation extremities without cyanosis Assessment: 1. Resolved leukocytosis, status post septic shock 2. Status post GI bleeding===> EGD with Hemoclip placement 3. S/p E. coli ESBL UTI, now + yeast 4. MRSA nares colonization 5. Dysphagia 6. Dementia Plan: Remains stable, repeat MRSA swab, if negative dc isolation, continue observing off antibiotics Result Diagram: 04/18/18 0546 04/18/18 0546 Results 24hrs Laboratory Tests Test 04/18/18 05:46 White Blood Count 7.0 Red Blood Count 2.83 L Hemoglobin 8.0 L Hematocrit 25.7 L Mean Corpuscular Volume 90.8 Mean Corpuscular Hemoglobin 28.3 L Mean Corpuscular Hemoglobin Concent 31.1 L Red Cell Distribution Width 16.6 H Platelet Count 431 H Mean Platelet Volume 11.8 H Immature Granulocytes % 1.600 H Neutrophils % 56.8 Segmented Neutrophils % (Manual) 46 Band Neutrophils % (Manual) 16 H Lymphocytes % 25.0 Lymphocytes % (Manual) 23 Monocytes % 9.9 Monocytes % (Manual) 4 Eosinophils % 6.1 Eosinophils % (Manual) 9 H Basophils % 0.6 Metamyelocytes % (manual) 1 H Myelocytes % (Manual) 1 H Nucleated Red Blood Cells % 0.0 Immature Granulocytes # 0.110 H Neutrophils # 4.0 Neutrophils # (Manual) 3.3 Band Neutrophils # 1.1 H Lymphocytes (Manual) 1.6 Lymphocytes # 1.8 Monocytes # 0.7 Monocytes # (Manual) 0.2 L Eosinophils # 0.4 Basophils # 0.0 Metamyelocytes # 0.0 Myelocytes # 0.0 Nucleated Red Blood Cells # 0.0 Platelet Estimate NORMAL Giant Platelets 2 H Polychromasia 1+ Hypochromasia 1+ Sodium Level 137 Potassium Level 4.1 Chloride Level 104 Carbon Dioxide Level 30 Anion Gap 3 L Blood Urea Nitrogen 23 H Creatinine 0.87 Est Glomerular Filtrat Rate mL/min Glucose Level 105 Calcium Level 7.8 L Total Bilirubin 0.0 L Direct Bilirubin 0.00 Indirect Bilirubin 0.0 Aspartate Amino Transf (AST/SGOT) 60 H Alanine Aminotransferase (ALT/SGPT) 60 Alkaline Phosphatase 677 H Total Protein 5.4 L Albumin 2.1 L Consultation Date/Type/Reason Admit Date/Time Mar 27, 2018 at 20:08 Initial Consult Date 04/02/18 Type of Consult ID Requesting Provider: DEENA BASILIO Exam/Review of Systems Vital Signs Vitals Vital Signs Date Temp Pulse Resp B/P (MAP) Pulse Ox O2 O2 Flow FiO2 Time Delivery Rate 04/18/18 97.9 86 20 129/60 97 13:51 (83) 04/18/18 Room Air 12:13 Intake and Output 04/17/18 04/17/18 04/18/18 1515:00 23:00 07:00 IntakeIntake Total 480 ml 1070 ml OutputOutput Total 400 ml 950 ml BalanceBalance 80 ml 120 ml Medications Medications Current Medications Ondansetron HCl (Zofran Inj) 4 mg Q6H PRN IV NAUSEA AND/OR VOMITING; Start 03/27/18 at 20:00 Acetaminophen (Tylenol Tab) 650 mg Q6H PRN PO PAIN LEVEL 1-3 OR FEVER Last administered on 04/10/18 17:27; Admin Dose 650 MG; Start 03/27/18 at 20:00 Collagenase (Santyl) 1 applic DAILY TOP Last administered on 04/17/18 09:14; Admin Dose 1 APPLIC; Start 03/31/18 at 09:00 Mupirocin (Bactroban) 1 applic BID TOP Last administered on 04/18/18 08:02; Admin Dose 1 APPLIC; Start 03/31/18 at 11:00 Morphine Sulfate (morphine) 2 mg Q4H PRN IV PAIN LEVEL 7-10 Last administered on 04/05/18 21:59; Admin Dose 2 MG; Start 04/05/18 at 17:22 Ascorbic Acid (Vitamin C) 500 mg DAILY NGT Last administered on 04/18/18 08:52; Admin Dose 500 MG; Start 04/09/18 at 14:00 Zinc Sulfate (Zinc Sulfate) 220 mg DAILY NGT Last administered on 04/18/18 08:52; Admin Dose 220 MG; Start 04/10/18 at 09:00 Lansoprazole (Prevacid) 30 mg BID@0600,1800 PO Last administered on 04/18/18at 05:52; Admin Dose 30 MG; Start 04/14/18 at 18:00 Multivitamins (Multivitamin) 30 ml DAILY NGT Last administered on 04/18/18at 08:52; Admin Dose 30 ML; Start 04/16/18 at 16:30 DAVONTE MCMAHAN NP Apr 18, 2018 15:21
[2018-04-19 01:30] VITALS: BP 135/61; PULSE 84; RESP 16
[2018-04-19] MEDS: LANSOPRAZOLE 30 MG CAP PO SCH ×2 (05:37→18:16)
[2018-04-19 07:22] VITALS: BP 130/63; PULSE 82; RESP 18
--- NOTE | 2018-04-19 07:58 | CONS ---
Date/Time of Note Date/Time of Note DATE: 04/19/18 TIME: 07:57 Assessment/Plan Assessment/Plan Assessment/Plan Hospital Course 88 yo male presented with urosepsis and respiratory failure and coffee ground emesis 1. Upper GI bleed manifested through coffee ground emesis and melena -s/p EGD -resolved 2. Gastric ulcers, etiology of bleed 3. Hiatal hernia 4. Anemia secondary to gastric ulcer bleeding -stable but slowly trending down, no active GI bleeding noted, FOB neg 04/16 -monitor closely 5. E. coli, yeast (04/06) in urine, wbc trending down 6. Dysphagia -improving 7. Malnutrition. 8. Transaminitis -alk 742, alt 70, ast 101 -trending downward, US suggests cirrhosis 9. Coarse slightly nodular liver suggesting cirrhosis -Ammonia level 14, Hep panel unremarkable, alpha 1 anti trypsin 137 (nl), EMELY screen neg, anti mitochondrial antib neg, Smooth muscle titer 1:40, smooth muscle ab interp POS, US of upper abd 04/15: 1. Coarse slightly nodular liver suggesting cirrhosis. No focal hepatic masses. 2. Cholelithiasis. There is thickening of the gallbladder wall which is nonspecific finding. Clinical correlation is recommended to exclude acute or chronic cholecystitis. 3. No biliary duct dilatation. 4. Small ascites and right pleural effusion. 5. Pancreas not visualized Plan: MRCP was cancelled because pt is unable to tell us if he has metal in body, no family. CT of abd does not show metal. US of abd done instead. Monitor LFTs Monitor HH closely, no evidence of active GI bleeding, continue with PPI BID Consider PEG Aspiration precautions No NSAIDs Monitor HH and transfuse as necessary Monitor for acute GI bleeding Result Diagram: 04/18/18 0546 04/18/18 0546 Consultation Date/Type/Reason Admit Date/Time Mar 27, 2018 at 20:08 Initial Consult Date 04/02/18 Requesting Provider: DEENA BASILIO 24 HR Interval Summary Constitutional: no complaints, improved Exam/Review of Systems Vital Signs Vitals Vital Signs Date Temp Pulse Resp B/P (MAP) Pulse Ox O2 O2 Flow FiO2 Time Delivery Rate 04/19/18 98.1 82 18 130/63 97 07:22 (85) 04/18/18 Room Air 12:13 Intake and Output 04/18/18 04/18/18 04/19/18 1515:00 23:00 07:00 IntakeIntake Total 400 ml 720 ml 820 ml OutputOutput Total 800 ml 600 ml BalanceBalance -400 ml 120 ml 820 ml Exam Constitutional: alert, oriented, well developed Psych: no complaints, nl mood/affect Head: normocephalic, atraumatic Eyes: nl conjunctiva, EOMI, nl lids, nl sclera, PERRL ENMT: nl external ears & nose, nl lips & teeth, nl nasal mucosa & septum Neck: supple, non-tender Respiratory: clear to auscultation, normal air movement Cardiovascular: regular rate and rhythm, nl pulses Gastrointestinal: soft, nl liver, spleen, non-tender Musculoskeletal: nl extremities to inspection, nl gait and stance Extremities: normal pulses Neurological: [employer] SAL[employer] II-XII intact, nl mental status, nl speech, nl strength Skin: nl turgor; No rash or lesions Lymph: nl lymph nodes Medications Medications Current Medications Ondansetron HCl (Zofran Inj) 4 mg Q6H PRN IV NAUSEA AND/OR VOMITING; Start 03/27/18 at 20:00 Acetaminophen (Tylenol Tab) 650 mg Q6H PRN PO PAIN LEVEL 1-3 OR FEVER Last administered on 04/10/18 17:27; Admin Dose 650 MG; Start 03/27/18 at 20:00 Collagenase (Santyl) 1 applic DAILY TOP Last administered on 04/17/18at 09:14; Admin Dose 1 APPLIC; Start 03/31/18 at 09:00 Mupirocin (Bactroban) 1 applic BID TOP Last administered on 04/18/18at 20:42; Admin Dose 1 APPLIC; Start 03/31/18 at 11:00 Morphine Sulfate (morphine) 2 mg Q4H PRN IV PAIN LEVEL 7-10 Last administered on 04/05/18 21:59; Admin Dose 2 MG; Start 04/05/18 at 17:22 Ascorbic Acid (Vitamin C) 500 mg DAILY NGT Last administered on 04/18/18 08:52; Admin Dose 500 MG; Start 04/09/18 at 14:00 Zinc Sulfate (Zinc Sulfate) 220 mg DAILY NGT Last administered on 04/18/18 08:52; Admin Dose 220 MG; Start 04/10/18 at 09:00 Lansoprazole (Prevacid) 30 mg BID@0600,1800 PO Last administered on 04/19/18at 05:37; Admin Dose 30 MG; Start 04/14/18 at 18:00 Multivitamins (Multivitamin) 30 ml DAILY NGT Last administered on 04/18/18at 08:52; Admin Dose 30 ML; Start 04/16/18 at 16:30 ATTILA UMANZOR MD Apr 19, 2018 07:58
[2018-04-19] MEDS: MULTIVITAMINS 30 ML CUP NGT SCH (08:54)
[2018-04-19] MEDS: ZINC SULFATE 220 MG CAP NGT SCH (08:54)
[2018-04-19] MEDS: ASCORBIC ACID 500 MG TAB NGT SCH (08:54)
[2018-04-19] MEDS: MUPIROCIN 2% 22 GM OINT TOP SCH ×2 (08:55→20:18)
[2018-04-19] MEDS: COLLAGENASE 5 GM (UD JAR) TOP SCH (08:56)
[2018-04-19] MEDS: BALSAM PERU/CASTOR OIL 60 GM TUBE TOP SCH ×2 (08:56→20:18)
--- NOTE | 2018-04-19 12:33 | PN ---
Date/Time of Note Date/Time of Note DATE: 04/18/18 TIME: 15:17 Assessment/Plan VTE Prophylaxis Risk score (from Ns)>0 risk: 12 SCD applied (from [facility] [place] Yes SCD contraindicated: other Pharmacological prophylaxis: other Lines/Catheters [facility] Type [facility]from [facility] Saline Lock Urinary Cath still in place: Yes Reason Cath still needed: urinary retention Assessment/Plan Assessment/Plan Anemia secondary to GI bleed. Dr. Gomes is following in GI consultation. Transfuse as needed, monitor hemoglobin and hematocrit. -Bleeding gastric ulcers, s/p hemostasis with placement of hemoclip during EGD by Dr Guallpa on 04/03/18. Continue Protonix. -S/p septic shock secondary to urinary tract infection, continue antibiotics per ID. Dr. Guzman is following in infection disease consultation. -Hypoxemic respiratory failure, resolving. Dr. Nam is following in pulmonology consultation. -Acute kidney injury, resolved. Dr. Senior following in nephrology consultation. -Hypernatremia, resolved. -MRSA of nares, continue Bactroban -Dementia -Multiple pressure ulcers, optimize nutrition, continue vitamin C and zinc sulfate, off loading. -Protein calorie malnutrition Further recommendations based on clinical course. Plan of care discussed with Dr. Kiser. Result Diagram: 04/18/18 0546 04/18/18 0546 Results 24hrs Laboratory Tests Test 04/18/18 05:46 White Blood Count 7.0 Red Blood Count 2.83 L Hemoglobin 8.0 L Hematocrit 25.7 L Mean Corpuscular Volume 90.8 Mean Corpuscular Hemoglobin 28.3 L Mean Corpuscular Hemoglobin Concent 31.1 L Red Cell Distribution Width 16.6 H Platelet Count 431 H Mean Platelet Volume 11.8 H Immature Granulocytes % 1.600 H Neutrophils % 56.8 Segmented Neutrophils % (Manual) 46 Band Neutrophils % (Manual) 16 H Lymphocytes % 25.0 Lymphocytes % (Manual) 23 Monocytes % 9.9 Monocytes % (Manual) 4 Eosinophils % 6.1 Eosinophils % (Manual) 9 H Basophils % 0.6 Metamyelocytes % (manual) 1 H Myelocytes % (Manual) 1 H Nucleated Red Blood Cells % 0.0 Immature Granulocytes # 0.110 H Neutrophils # 4.0 Neutrophils # (Manual) 3.3 Band Neutrophils # 1.1 H Lymphocytes (Manual) 1.6 Lymphocytes # 1.8 Monocytes # 0.7 Monocytes # (Manual) 0.2 L Eosinophils # 0.4 Basophils # 0.0 Metamyelocytes # 0.0 Myelocytes # 0.0 Nucleated Red Blood Cells # 0.0 Platelet Estimate NORMAL Giant Platelets 2 H Polychromasia 1+ Hypochromasia 1+ Sodium Level 137 Potassium Level 4.1 Chloride Level 104 Carbon Dioxide Level 30 Anion Gap 3 L Blood Urea Nitrogen 23 H Creatinine 0.87 Est Glomerular Filtrat Rate mL/min Glucose Level 105 Calcium Level 7.8 L Total Bilirubin 0.0 L Direct Bilirubin 0.00 Indirect Bilirubin 0.0 Aspartate Amino Transf (AST/SGOT) 60 H Alanine Aminotransferase (ALT/SGPT) 60 Alkaline Phosphatase 677 H Total Protein 5.4 L Albumin 2.1 L Exam/Review of Systems Vital Signs Vitals Vital Signs Date Temp Pulse Resp B/P (MAP) Pulse Ox O2 O2 Flow FiO2 Time Delivery Rate 04/18/18 97.9 86 20 129/60 97 13:51 (83) 04/18/18 Room Air 12:13 Intake and Output 04/17/18 04/17/18 04/18/18 1515:00 23:00 07:00 IntakeIntake Total 480 ml 1070 ml OutputOutput Total 400 ml 950 ml BalanceBalance 80 ml 120 ml Exam Constitutional: non-verbal Psych: nl mood/affect Eyes: nl lids, nl sclera ENMT: nl external ears & nose Respiratory: diminished breath sounds Cardiovascular: nl pulses, other (s1s2) Gastrointestinal: soft Musculoskeletal: muscle weakness Extremities: normal pulses Neurological: confused Medications Medications Current Medications Ondansetron HCl (Zofran Inj) 4 mg Q6H PRN IV NAUSEA AND/OR VOMITING; Start 03/27/18 at 20:00 Acetaminophen (Tylenol Tab) 650 mg Q6H PRN PO PAIN LEVEL 1-3 OR FEVER Last administered on 04/10/18 17:27; Admin Dose 650 MG; Start 03/27/18 at 20:00 Collagenase (Santyl) 1 applic DAILY TOP Last administered on 04/17/18at 09:14; Admin Dose 1 APPLIC; Start 03/31/18 at 09:00 Mupirocin (Bactroban) 1 applic BID TOP Last administered on 04/18/18at 08:02; Admin Dose 1 APPLIC; Start 03/31/18 at 11:00 Morphine Sulfate (morphine) 2 mg Q4H PRN IV PAIN LEVEL 7-10 Last administered on 04/05/18 21:59; Admin Dose 2 MG; Start 04/05/18 at 17:22 Ascorbic Acid (Vitamin C) 500 mg DAILY NGT Last administered on 04/18/18 08:52; Admin Dose 500 MG; Start 04/09/18 at 14:00 Zinc Sulfate (Zinc Sulfate) 220 mg DAILY NGT Last administered on 04/18/18 08:52; Admin Dose 220 MG; Start 04/10/18 at 09:00 Lansoprazole (Prevacid) 30 mg BID@0600,1800 PO Last administered on 04/18/18 05:52; Admin Dose 30 MG; Start 04/14/18 at 18:00 Multivitamins (Multivitamin) 30 ml DAILY NGT Last administered on 04/18/18 08:52; Admin Dose 30 ML; Start 04/16/18 at 16:30 MICHAEL ARZATE Apr 18, 2018 15:27
--- NOTE | 2018-04-19 12:34 | PN ---
Date/Time of Note Date/Time of Note DATE: 04/19/18 TIME: 12:33 Assessment/Plan VTE Prophylaxis Risk score (from Ns)>0 risk: 3 SCD applied (from [facility]): Yes Pharmacological prophylaxis: other Lines/Catheters IV Catheter Type (from Nrsg): Saline Lock Urinary Cath still in place: Yes Reason Cath still needed: urinary retention Assessment/Plan Assessment/Plan Assessment/Plan Anemia secondary to GI bleed. Dr. Gomes is following in GI consultation. Transfuse as needed, monitor hemoglobin and hematocrit. -Bleeding gastric ulcers, s/p hemostasis with placement of hemoclip during EGD by Dr Guallpa on 04/03/18. Continue Protonix. -S/p septic shock secondary to urinary tract infection, continue antibiotics per ID. Dr. Guzman is following in infection disease consultation. -Hypoxemic respiratory failure, resolving. Dr. Nam is following in pulmonology consultation. -Acute kidney injury, resolved. Dr. Senior following in nephrology consultation. -Hypernatremia, resolved. -MRSA of nares, continue Bactroban -Dementia -Multiple pressure ulcers, optimize nutrition, continue vitamin C and zinc sulfate, off loading. -Protein calorie malnutrition Further recommendations based on clinical course. Plan of care discussed with Dr. Kiser. Result Diagram: 04/19/18 0716 04/19/18 0716 Results 24hrs Laboratory Tests Test 04/19/18 07:16 White Blood Count 7.8 Red Blood Count 2.88 L Hemoglobin 8.0 L Hematocrit 26.0 L Mean Corpuscular Volume 90.3 Mean Corpuscular Hemoglobin 27.8 L Mean Corpuscular Hemoglobin Concent 30.8 L Red Cell Distribution Width 16.6 H Platelet Count 477 H Mean Platelet Volume 11.9 H Immature Granulocytes % 2.300 H Neutrophils % 59.7 Lymphocytes % 22.3 Monocytes % 8.9 Eosinophils % 6.0 Basophils % 0.8 Nucleated Red Blood Cells % 0.0 Immature Granulocytes # 0.180 H Neutrophils # 4.6 Lymphocytes # 1.7 Monocytes # 0.7 Eosinophils # 0.5 Basophils # 0.1 Nucleated Red Blood Cells # 0.0 Sodium Level 135 Potassium Level 4.1 Chloride Level 104 Carbon Dioxide Level 28 Anion Gap 3 L Blood Urea Nitrogen 23 H Creatinine 0.74 Est Glomerular Filtrat Rate mL/min Glucose Level 109 Calcium Level 7.7 L Exam/Review of Systems Vital Signs Vitals Vital Signs Date Temp Pulse Resp B/P (MAP) Pulse Ox O2 O2 Flow FiO2 Time Delivery Rate 04/19/18 98.1 82 18 130/63 97 07:22 (85) 04/18/18 Room Air 12:13 Intake and Output 04/18/18 04/18/18 04/19/18 1515:00 23:00 07:00 IntakeIntake Total 400 ml 720 ml 820 ml OutputOutput Total 800 ml 600 ml BalanceBalance -400 ml 120 ml 820 ml Exam Constitutional: frail Psych: no complaints Head: atraumatic Eyes: nl lids, nl sclera ENMT: nl external ears & nose Respiratory: diminished breath sounds Cardiovascular: nl pulses, other (s1s2) Gastrointestinal: soft Musculoskeletal: muscle weakness Extremities: normal pulses Neurological: confused Medications Medications Current Medications Ondansetron HCl (Zofran Inj) 4 mg Q6H PRN IV NAUSEA AND/OR VOMITING; Start 03/27/18 at 20:00 Acetaminophen (Tylenol Tab) 650 mg Q6H PRN PO PAIN LEVEL 1-3 OR FEVER Last administered on 04/10/18 17:27; Admin Dose 650 MG; Start 03/27/18 at 20:00 Collagenase (Santyl) 1 applic DAILY TOP Last administered on 04/19/18 08:56; Admin Dose 1 APPLIC; Start 03/31/18 at 09:00 Mupirocin (Bactroban) 1 applic BID TOP Last administered on 04/19/18 08:55; Admin Dose 1 APPLIC; Start 03/31/18 at 11:00 Morphine Sulfate (morphine) 2 mg Q4H PRN IV PAIN LEVEL 7-10 Last administered on 04/05/18 21:59; Admin Dose 2 MG; Start 04/05/18 at 17:22 Ascorbic Acid (Vitamin C) 500 mg DAILY NGT Last administered on 04/19/18 08:54; Admin Dose 500 MG; Start 04/09/18 at 14:00 Zinc Sulfate (Zinc Sulfate) 220 mg DAILY NGT Last administered on 04/19/18 08:54; Admin Dose 220 MG; Start 04/10/18 at 09:00 Lansoprazole (Prevacid) 30 mg BID@0600,1800 PO Last administered on 04/19/18 05:37; Admin Dose 30 MG; Start 04/14/18 at 18:00 Multivitamins (Multivitamin) 30 ml DAILY NGT Last administered on 04/19/18at 08:54; Admin Dose 30 ML; Start 04/16/18 at 16:30 MICHAEL ARZATE Apr 19, 2018 12:34
--- NOTE | 2018-04-19 13:23 | CONS ---
Date/Time of Note Date/Time of Note DATE: 04/19/18 TIME: 13:22 Consult Date/Type/Reason Admit Date/Time Mar 27, 2018 at 20:08 Initial Consult Date 03/29/18 Type of Consultation: Pulm Requesting Provider: DEENA BASILIO Subjective No events overnight. Objective Vital Signs Date Temp Pulse Resp B/P (MAP) Pulse Ox O2 O2 Flow FiO2 Time Delivery Rate 04/19/18 98.1 82 18 130/63 97 07:22 (85) 04/18/18 Room Air 12:13 Intake and Output 04/18/18 04/18/18 04/19/18 1515:00 23:00 07:00 IntakeIntake Total 400 ml 720 ml 820 ml OutputOutput Total 800 ml 600 ml BalanceBalance -400 ml 120 ml 820 ml Exam HEENT: Pupils equal, round, and reactive to light. CARDIAC: S1, S2, 1/6 systolic ejection murmur CHEST: Diminished air entry bilaterally. ABDOMEN: Mildly distended. Bowel sounds present no guarding or rebound EXTREMITIES: No cyanosis, clubbing edema +1 NEUROLOGIC: Generalized weakness Results/Medications Result Diagram: 04/19/18 0716 04/19/18 0716 Results 24 hrs Laboratory Tests Test 04/19/18 07:16 White Blood Count 7.8 Red Blood Count 2.88 L Hemoglobin 8.0 L Hematocrit 26.0 L Mean Corpuscular Volume 90.3 Mean Corpuscular Hemoglobin 27.8 L Mean Corpuscular Hemoglobin Concent 30.8 L Red Cell Distribution Width 16.6 H Platelet Count 477 H Mean Platelet Volume 11.9 H Immature Granulocytes % 2.300 H Neutrophils % 59.7 Lymphocytes % 22.3 Monocytes % 8.9 Eosinophils % 6.0 Basophils % 0.8 Nucleated Red Blood Cells % 0.0 Immature Granulocytes # 0.180 H Neutrophils # 4.6 Lymphocytes # 1.7 Monocytes # 0.7 Eosinophils # 0.5 Basophils # 0.1 Nucleated Red Blood Cells # 0.0 Sodium Level 135 Potassium Level 4.1 Chloride Level 104 Carbon Dioxide Level 28 Anion Gap 3 L Blood Urea Nitrogen 23 H Creatinine 0.74 Est Glomerular Filtrat Rate mL/min Glucose Level 109 Calcium Level 7.7 L Medications Current Medications Ondansetron HCl (Zofran Inj) 4 mg Q6H PRN IV NAUSEA AND/OR VOMITING; Start 03/27/18 at 20:00 Acetaminophen (Tylenol Tab) 650 mg Q6H PRN PO PAIN LEVEL 1-3 OR FEVER Last administered on 04/10/18 17:27; Admin Dose 650 MG; Start 03/27/18 at 20:00 Collagenase (Santyl) 1 applic DAILY TOP Last administered on 04/19/18 08:56; Admin Dose 1 APPLIC; Start 03/31/18 at 09:00 Mupirocin (Bactroban) 1 applic BID TOP Last administered on 04/19/18 08:55; Admin Dose 1 APPLIC; Start 03/31/18 at 11:00 Morphine Sulfate (morphine) 2 mg Q4H PRN IV PAIN LEVEL 7-10 Last administered on 04/05/18 21:59; Admin Dose 2 MG; Start 04/05/18 at 17:22 Ascorbic Acid (Vitamin C) 500 mg DAILY NGT Last administered on 04/19/18 08:54; Admin Dose 500 MG; Start 04/09/18 at 14:00 Zinc Sulfate (Zinc Sulfate) 220 mg DAILY NGT Last administered on 04/19/18 08:54; Admin Dose 220 MG; Start 04/10/18 at 09:00 Lansoprazole (Prevacid) 30 mg BID@0600,1800 PO Last administered on 04/19/18 05:37; Admin Dose 30 MG; Start 04/14/18 at 18:00 Multivitamins (Multivitamin) 30 ml DAILY NGT Last administered on 04/19/18 08:54; Admin Dose 30 ML; Start 04/16/18 at 16:30 Assessment/Plan Chief Complaint/Hosp Course Briefly, this is a 87-year-old gentleman with history of dementia, functional quadriplegia hypertension, BPH history of right humerus fracture complicated by DVT s/p IVC filter, E. coli urinary tract infection, and multiple pressure ulcers admitted with AMS due to urosepsis with associated FLORES and hypoxemic respiratory failure. CT abdomen also notable for possible PSBO. Additional Assessment/Plan IMP: 1. s/p Respiratory Failure--with hypoxemic component. Tachypnea likely due to metabolic acidosis 2/2 FLORES respiratory status improved 2. Urinary tract infection with septic shock--improved. 3. FLORES--likely pre-renal vs.ATN 4. Metabolic Acidosis 2/2 #3--improved 5. AMS--Dementia and uremia 6. HyperNa+ resolved. 7. s/p GI bleed clipping. RECS: 1. Continue bp management 2. Aspiration precautions 3. PT as tolerated 4. Follow H/H JOSE PORTILLO MD Apr 19, 2018 13:23
[2018-04-19 14:41] VITALS: BP 119/83; PULSE 82; RESP 18
[2018-04-19 20:00] VITALS: BP 126/61; PULSE 92; RESP 16
--- NOTE | 2018-04-19 21:27 | CONS ---
Date/Time of Note Date/Time of Note DATE: 04/19/18 TIME: 21:27 Assessment/Plan Assessment/Plan Assessment/Plan 1. Acute kidney injury on CKD due to ATN + prerenal azotemia 2. acute blood loss anemia- 3. acute hyperkalemia- now resolved 4. acute hypoxemic resp failure 5. Sepsis due to acute UTI 6. Severe metabolic acidosis due to FLORES 7. Hypernatremia 8. Upper GI bleeding Plan: BUN/Cr 23/0.74, other electrolytes stable, BP stable w/o midodrine Renal US showed No evidence of hydronephrosis or mass, Nonobstructing intrarenal calculi are seen in the mid right kidney measuring 4 mm in 7 mm. 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.8 x 6.7 x 8.3 cm will follow up Result Diagram: 04/19/18 0716 04/19/18 0716 Results 24hrs Laboratory Tests Test 04/19/18 07:16 White Blood Count 7.8 Red Blood Count 2.88 L Hemoglobin 8.0 L Hematocrit 26.0 L Mean Corpuscular Volume 90.3 Mean Corpuscular Hemoglobin 27.8 L Mean Corpuscular Hemoglobin Concent 30.8 L Red Cell Distribution Width 16.6 H Platelet Count 477 H Mean Platelet Volume 11.9 H Immature Granulocytes % 2.300 H Neutrophils % 59.7 Lymphocytes % 22.3 Monocytes % 8.9 Eosinophils % 6.0 Basophils % 0.8 Nucleated Red Blood Cells % 0.0 Immature Granulocytes # 0.180 H Neutrophils # 4.6 Lymphocytes # 1.7 Monocytes # 0.7 Eosinophils # 0.5 Basophils # 0.1 Nucleated Red Blood Cells # 0.0 Sodium Level 135 Potassium Level 4.1 Chloride Level 104 Carbon Dioxide Level 28 Anion Gap 3 L Blood Urea Nitrogen 23 H Creatinine 0.74 Est Glomerular Filtrat Rate mL/min Glucose Level 109 Calcium Level 7.7 L Consultation Date/Type/Reason Admit Date/Time Mar 27, 2018 at 20:08 Initial Consult Date 03/31/18 Type of Consult NEPHROLOGY Requesting Provider: DEENA BASILIO Exam/Review of Systems Vital Signs Vitals Vital Signs Date Temp Pulse Resp B/P (MAP) Pulse Ox O2 O2 Flow FiO2 Time Delivery Rate 04/19/18 97.5 92 16 126/61 92 20:00 (82) 92 04/18/18 Room Air 12:13 Intake and Output 04/18/18 04/18/18 04/19/18 1515:00 23:00 07:00 IntakeIntake Total 400 ml 720 ml 820 ml OutputOutput Total 800 ml 600 ml BalanceBalance -400 ml 120 ml 820 ml Exam Constitutional: alert Psych: no complaints Head: normocephalic ENMT: nl external ears & nose Neck: supple, non-tender Respiratory: clear to auscultation, normal air movement, diminished breath sounds Cardiovascular: regular rate and rhythm, nl pulses Gastrointestinal: soft, non-tender Musculoskeletal: nl extremities to inspection Medications Medications Current Medications Ondansetron HCl (Zofran Inj) 4 mg Q6H PRN IV NAUSEA AND/OR VOMITING; Start 03/27/18 at 20:00 Acetaminophen (Tylenol Tab) 650 mg Q6H PRN PO PAIN LEVEL 1-3 OR FEVER Last administered on 04/10/18 17:27; Admin Dose 650 MG; Start 03/27/18 at 20:00 Collagenase (Santyl) 1 applic DAILY TOP Last administered on 04/19/18 08:56; Admin Dose 1 APPLIC; Start 03/31/18 at 09:00 Mupirocin (Bactroban) 1 applic BID TOP Last administered on 04/19/18 20:18; Admin Dose 1 APPLIC; Start 03/31/18 at 11:00 Morphine Sulfate (morphine) 2 mg Q4H PRN IV PAIN LEVEL 7-10 Last administered on 04/05/18 21:59; Admin Dose 2 MG; Start 04/05/18 at 17:22 Ascorbic Acid (Vitamin C) 500 mg DAILY NGT Last administered on 04/19/18 08:54; Admin Dose 500 MG; Start 04/09/18 at 14:00 Zinc Sulfate (Zinc Sulfate) 220 mg DAILY NGT Last administered on 04/19/18 08:54; Admin Dose 220 MG; Start 04/10/18 at 09:00 Lansoprazole (Prevacid) 30 mg BID@0600,1800 PO Last administered on 04/19/18 18:16; Admin Dose 30 MG; Start 04/14/18 at 18:00 Multivitamins (Multivitamin) 30 ml DAILY NGT Last administered on 04/19/18 08:54; Admin Dose 30 ML; Start 04/16/18 at 16:30 STEVEN BLANCO MD Apr 19, 2018 21:27
[2018-04-20 01:56] VITALS: BP 116/56; PULSE 78; RESP 18
[2018-04-20] MEDS: LANSOPRAZOLE 30 MG CAP PO SCH ×2 (05:33→20:00)
[2018-04-20 07:38] VITALS: BP 131/64; PULSE 88; RESP 16
[2018-04-20] MEDS: COLLAGENASE 5 GM (UD JAR) TOP SCH (09:29)
[2018-04-20] MEDS: BALSAM PERU/CASTOR OIL 60 GM TUBE TOP SCH ×2 (09:29→20:26)
[2018-04-20] MEDS: MULTIVITAMINS 30 ML CUP NGT SCH (09:30)
[2018-04-20] MEDS: ASCORBIC ACID 500 MG TAB NGT SCH (09:30)
[2018-04-20] MEDS: ZINC SULFATE 220 MG CAP NGT SCH (09:30)
[2018-04-20] MEDS: MUPIROCIN 2% 22 GM OINT TOP SCH ×2 (09:30→20:21)
--- NOTE | 2018-04-20 10:36 | CONS ---
Date/Time of Note Date/Time of Note DATE: 04/20/18 TIME: 10:36 Assessment/Plan Assessment/Plan Assessment/Plan 1. Acute kidney injury on CKD due to ATN + prerenal azotemia 2. acute blood loss anemia- 3. acute hyperkalemia- now resolved 4. acute hypoxemic resp failure 5. Sepsis due to acute UTI 6. Severe metabolic acidosis due to FLORES 7. Hypernatremia 8. Upper GI bleeding Plan: BUN/Cr 23/0.73, other electrolytes stable, BP stable w/o midodrine Renal US showed No evidence of hydronephrosis or mass, Nonobstructing intrarenal calculi are seen in the mid right kidney measuring 4 mm in 7 mm. 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.8 x 6.7 x 8.3 cm will follow up Result Diagram: 04/20/18 0542 04/20/18 0542 Results 24hrs Laboratory Tests Test 04/20/18 05:42 White Blood Count 9.1 Red Blood Count 2.88 L Hemoglobin 8.1 L Hematocrit 26.3 L Mean Corpuscular Volume 91.3 Mean Corpuscular Hemoglobin 28.1 L Mean Corpuscular Hemoglobin Concent 30.8 L Red Cell Distribution Width 16.6 H Platelet Count 309 # Mean Platelet Volume 12.8 H Immature Granulocytes % 2.600 H Neutrophils % 61.1 Lymphocytes % 22.4 Monocytes % 8.6 Eosinophils % 4.7 Basophils % 0.6 Nucleated Red Blood Cells % 0.0 Immature Granulocytes # 0.240 H Neutrophils # 5.6 Lymphocytes # 2.0 Monocytes # 0.8 Eosinophils # 0.4 Basophils # 0.1 Nucleated Red Blood Cells # 0.0 Sodium Level 135 Potassium Level 4.3 Chloride Level 101 Carbon Dioxide Level 31 Anion Gap 3 L Blood Urea Nitrogen 23 H Creatinine 0.73 Est Glomerular Filtrat Rate mL/min Glucose Level 116 Calcium Level 7.9 L Consultation Date/Type/Reason Admit Date/Time Mar 27, 2018 at 20:08 Initial Consult Date 03/31/18 Type of Consult NEPHROLOGY Requesting Provider: DEENA BASILIO 24 HR Interval Summary Free Text/Dictation BUN/Cr improved to normal, aferile, BP stable Exam/Review of Systems Vital Signs Vitals Vital Signs Date Temp Pulse Resp B/P (MAP) Pulse Ox O2 O2 Flow FiO2 Time Delivery Rate 04/20/18 98.3 88 16 131/64 97 07:38 (86) 04/18/18 Room Air 12:13 Intake and Output 04/19/18 04/19/18 04/20/18 1414:59 22:59 06:59 IntakeIntake Total 240 ml 900 ml OutputOutput Total 1100 ml 1200 ml 750 ml BalanceBalance -1100 ml -960 ml 150 ml Exam Constitutional: alert Psych: no complaints Head: normocephalic ENMT: nl external ears & nose Neck: supple, non-tender Respiratory: clear to auscultation, normal air movement, diminished breath sounds Cardiovascular: regular rate and rhythm, nl pulses Gastrointestinal: soft, non-tender Musculoskeletal: nl extremities to inspection Medications Medications Current Medications Ondansetron HCl (Zofran Inj) 4 mg Q6H PRN IV NAUSEA AND/OR VOMITING; Start 03/27/18 at 20:00 Acetaminophen (Tylenol Tab) 650 mg Q6H PRN PO PAIN LEVEL 1-3 OR FEVER Last administered on 04/10/18at 17:27; Admin Dose 650 MG; Start 03/27/18 at 20:00 Collagenase (Santyl) 1 applic DAILY TOP Last administered on 04/20/18 09:29; Admin Dose 1 APPLIC; Start 03/31/18 at 09:00 Mupirocin (Bactroban) 1 applic BID TOP Last administered on 04/20/18 09:30; Admin Dose 1 APPLIC; Start 03/31/18 at 11:00 Morphine Sulfate (morphine) 2 mg Q4H PRN IV PAIN LEVEL 7-10 Last administered on 04/05/18at 21:59; Admin Dose 2 MG; Start 04/05/18 at 17:22 Ascorbic Acid (Vitamin C) 500 mg DAILY NGT Last administered on 04/20/18 09:30; Admin Dose 500 MG; Start 04/09/18 at 14:00 Zinc Sulfate (Zinc Sulfate) 220 mg DAILY NGT Last administered on 04/20/18 09:30; Admin Dose 220 MG; Start 04/10/18 at 09:00 Lansoprazole (Prevacid) 30 mg BID@0600,1800 PO Last administered on 04/20/18at 0 5:33; Admin Dose 30 MG; Start 04/14/18 at 18:00 Multivitamins (Multivitamin) 30 ml DAILY NGT Last administered on 04/20/18at 09:30; Admin Dose 30 ML; Start 04/16/18 at 16:30 STEVEN BLANCO MD Apr 20, 2018 10:36
--- NOTE | 2018-04-20 12:04 | CONS ---
Date/Time of Note Date/Time of Note DATE: 04/20/18 TIME: 12:02 Assessment/Plan Assessment/Plan Hospital Course 88 yo male presented with urosepsis and respiratory failure and coffee ground emesis 1. Upper GI bleed manifested through coffee ground emesis and melena -s/p EGD -resolved 2. Gastric ulcers, etiology of bleed 3. Hiatal hernia 4. Anemia secondary to gastric ulcer bleeding -stable but slowly trending down, no active GI bleeding noted, FOB neg 04/16 -monitor closely 5. E. coli, yeast (04/06) in urine, wbc trending down 6. Dysphagia -improving 7. Malnutrition. 8. Transaminitis -alk 742, alt 70, ast 101 -trending downward, US suggests cirrhosis 9. 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 Coarse slightly nodular liver suggesting cirrhosis. No focal hepatic masses. 2. Cholelithiasis. There is thickening of the gallbladder wall which is nonspec ific finding. Clinical correlation is recommended to exclude acute or chronic cholecystitis. 3. No biliary duct dilatation. 4. Small ascites and right pleural effusion. 5. Pancreas not visualized Plan: Smooth muscle titer 1:40, smooth muscle ab interp POS, Consider PEG, please let us know if primary would like to proceed with PEG. MRCP was cancelled because pt is unable to tell us if he has metal in body, no family. CT of abd does not show metal. US of abd done instead. Monitor LFTs, liver profile in am. Monitor HH closely, no evidence of active GI bleeding, continue with PPI BID Aspiration precautions No NSAIDs Monitor HH and transfuse as necessary Monitor for acute GI bleeding Pt examined and plan of care discussed with Dr. Gomes Result Diagram: 04/20/18 0542 04/20/18 0542 Results 24hrs Laboratory Tests Test 04/20/18 05:42 White Blood Count 9.1 Red Blood Count 2.88 L Hemoglobin 8.1 L Hematocrit 26.3 L Mean Corpuscular Volume 91.3 Mean Corpuscular Hemoglobin 28.1 L Mean Corpuscular Hemoglobin Concent 30.8 L Red Cell Distribution Width 16.6 H Platelet Count 309 # Mean Platelet Volume 12.8 H Immature Granulocytes % 2.600 H Neutrophils % 61.1 Lymphocytes % 22.4 Monocytes % 8.6 Eosinophils % 4.7 Basophils % 0.6 Nucleated Red Blood Cells % 0.0 Immature Granulocytes # 0.240 H Neutrophils # 5.6 Lymphocytes # 2.0 Monocytes # 0.8 Eosinophils # 0.4 Basophils # 0.1 Nucleated Red Blood Cells # 0.0 Sodium Level 135 Potassium Level 4.3 Chloride Level 101 Carbon Dioxide Level 31 Anion Gap 3 L Blood Urea Nitrogen 23 H Creatinine 0.73 Est Glomerular Filtrat Rate mL/min Glucose Level 116 Calcium Level 7.9 L Consultation Date/Type/Reason Admit Date/Time Mar 27, 2018 at 20:08 Initial Consult Date 04/02/18 Requesting Provider: DEENA BASILIO 24 HR Interval Summary Free Text/Dictation No N/V. He denies abd pain. Denies PTP in RUQ. Exam/Review of Systems Vital Signs Vitals Vital Signs Date Temp Pulse Resp B/P (MAP) Pulse Ox O2 O2 Flow FiO2 Time Delivery Rate 04/20/18 98.3 88 16 131/64 97 07:38 (86) 04/18/18 Room Air 12:13 Intake and Output 04/19/18 04/19/18 04/20/18 1515:00 23:00 07:00 IntakeIntake Total 240 ml 900 ml OutputOutput Total 1100 ml 1200 ml 750 ml BalanceBalance -1100 ml -960 ml 150 ml Exam Constitutional: alert Psych: no complaints Head: normocephalic Eyes: nl sclera, PERRL Respiratory: diminished breath sounds Gastrointestinal: soft, non-tender, other (neg barlow's) Medications Medications Current Medications Ondansetron HCl (Zofran Inj) 4 mg Q6H PRN IV NAUSEA AND/OR VOMITING; Start 03/27/18 at 20:00 Acetaminophen (Tylenol Tab) 650 mg Q6H PRN PO PAIN LEVEL 1-3 OR FEVER Last administered on 04/10/18at 17:27; Admin Dose 650 MG; Start 03/27/18 at 20:00 Collagenase (Santyl) 1 applic DAILY TOP Last administered on 04/20/18at 09:29; Admin Dose 1 APPLIC; Start 03/31/18 at 09:00 Mupirocin (Bactroban) 1 applic BID TOP Last administered on 04/20/18 09:30; Admin Dose 1 APPLIC; Start 03/31/18 at 11:00 Morphine Sulfate (morphine) 2 mg Q4H PRN IV PAIN LEVEL 7-10 Last administered on 04/05/18 21:59; Admin Dose 2 MG; Start 04/05/18 at 17:22 Ascorbic Acid (Vitamin C) 500 mg DAILY NGT Last administered on 04/20/18 09:30; Admin Dose 500 MG; Start 04/09/18 at 14:00 Zinc Sulfate (Zinc Sulfate) 220 mg DAILY NGT Last administered on 04/20/18 09:30; Admin Dose 220 MG; Start 04/10/18 at 09:00 Lansoprazole (Prevacid) 30 mg BID@0600,1800 PO Last administered on 04/20/18 05:33; Admin Dose 30 MG; Start 04/14/18 at 18:00 Multivitamins (Multivitamin) 30 ml DAILY NGT Last administered on 04/20/18 09:30; Admin Dose 30 ML; Start 04/16/18 at 16:30 SOREN DOVE Apr 20, 2018 12:04
--- NOTE | 2018-04-20 12:40 | CONS ---
Date/Time of Note Date/Time of Note DATE: 04/20/18 TIME: 12:39 Consult Date/Type/Reason Admit Date/Time Mar 27, 2018 at 20:08 Initial Consult Date 03/29/18 Type of Consultation: Pulm Requesting Provider: DEENA BASILIO Subjective No events overnight. Objective Vital Signs Date Temp Pulse Resp B/P (MAP) Pulse Ox O2 O2 Flow FiO2 Time Delivery Rate 04/20/18 98.3 88 16 131/64 97 07:38 (86) 04/18/18 Room Air 12:13 Intake and Output 04/19/18 04/19/18 04/20/18 1515:00 23:00 07:00 IntakeIntake Total 240 ml 900 ml OutputOutput Total 1100 ml 1200 ml 750 ml BalanceBalance -1100 ml -960 ml 150 ml Exam HEENT: Pupils equal, round, and reactive to light. CARDIAC: S1, S2, 1/6 systolic ejection murmur CHEST: Diminished air entry bilaterally. ABDOMEN: Mildly distended. Bowel sounds present no guarding or rebound EXTREMITIES: No cyanosis, clubbing edema +1 NEUROLOGIC: Generalized weakness Results/Medications Result Diagram: 04/20/18 0542 04/20/18 0542 Results 24 hrs Laboratory Tests Test 04/20/18 05:42 White Blood Count 9.1 Red Blood Count 2.88 L Hemoglobin 8.1 L Hematocrit 26.3 L Mean Corpuscular Volume 91.3 Mean Corpuscular Hemoglobin 28.1 L Mean Corpuscular Hemoglobin Concent 30.8 L Red Cell Distribution Width 16.6 H Platelet Count 309 # Mean Platelet Volume 12.8 H Immature Granulocytes % 2.600 H Neutrophils % 61.1 Lymphocytes % 22.4 Monocytes % 8.6 Eosinophils % 4.7 Basophils % 0.6 Nucleated Red Blood Cells % 0.0 Immature Granulocytes # 0.240 H Neutrophils # 5.6 Lymphocytes # 2.0 Monocytes # 0.8 Eosinophils # 0.4 Basophils # 0.1 Nucleated Red Blood Cells # 0.0 Sodium Level 135 Potassium Level 4.3 Chloride Level 101 Carbon Dioxide Level 31 Anion Gap 3 L Blood Urea Nitrogen 23 H Creatinine 0.73 Est Glomerular Filtrat Rate mL/min Glucose Level 116 Calcium Level 7.9 L Medications Current Medications Ondansetron HCl (Zofran Inj) 4 mg Q6H PRN IV NAUSEA AND/OR VOMITING; Start 03/27/18 at 20:00 Acetaminophen (Tylenol Tab) 650 mg Q6H PRN PO PAIN LEVEL 1-3 OR FEVER Last administered on 04/10/18 17:27; Admin Dose 650 MG; Start 03/27/18 at 20:00 Collagenase (Santyl) 1 applic DAILY TOP Last administered on 04/20/18 09:29; Admin Dose 1 APPLIC; Start 03/31/18 at 09:00 Mupirocin (Bactroban) 1 applic BID TOP Last administered on 04/20/18 09:30; Admin Dose 1 APPLIC; Start 03/31/18 at 11:00 Morphine Sulfate (morphine) 2 mg Q4H PRN IV PAIN LEVEL 7-10 Last administered on 04/05/18 21:59; Admin Dose 2 MG; Start 04/05/18 at 17:22 Ascorbic Acid (Vitamin C) 500 mg DAILY NGT Last administered on 04/20/18 09:30; Admin Dose 500 MG; Start 04/09/18 at 14:00 Zinc Sulfate (Zinc Sulfate) 220 mg DAILY NGT Last administered on 04/20/18 09:30; Admin Dose 220 MG; Start 04/10/18 at 09:00 Lansoprazole (Prevacid) 30 mg BID@0600,1800 PO Last administered on 04/20/18 05:33; Admin Dose 30 MG; Start 04/14/18 at 18:00 Multivitamins (Multivitamin) 30 ml DAILY NGT Last administered on 04/20/18 09: 30; Admin Dose 30 ML; Start 04/16/18 at 16:30 Assessment/Plan Chief Complaint/Hosp Course Briefly, this is a 87-year-old gentleman with history of dementia, functional quadriplegia hypertension, BPH history of right humerus fracture complicated by DVT s/p IVC filter, E. coli urinary tract infection, and multiple pressure ulcers admitted with AMS due to urosepsis with associated FLORES and hypoxemic respiratory failure. CT abdomen also notable for possible PSBO. Additional Assessment/Plan IMP: 1. s/p Respiratory Failure--with hypoxemic component. Tachypnea likely due to metabolic acidosis 2/2 FLORES respiratory status improved 2. Urinary tract infection with septic shock--improved. 3. FLORES--likely pre-renal vs.ATN 4. Metabolic Acidosis 2/2 #3--improved 5. AMS--Dementia and uremia 6. HyperNa+ resolved. 7. s/p GI bleed clipping. RECS: 1. Optimize nutrition 2. Aspiration precautions 3. PT as tolerated 4. Follow H/H JOSE PORTILLO MD Apr 20, 2018 12:40
[2018-04-20 13:44] VITALS: BP 131/62; PULSE 92; RESP 16
--- NOTE | 2018-04-20 14:13 | PN ---
Date/Time of Note Date/Time of Note DATE: 04/20/18 TIME: 14:13 Assessment/Plan VTE Prophylaxis Risk score (from Ns)>0 risk: 10 SCD applied (from [facility] [place] Yes SCD contraindicated: other Pharmacological prophylaxis: other Lines/Catheters IV Catheter Type (from [facility]): Saline Lock Urinary Cath still in place: Yes Reason Cath still needed: urinary retention Assessment/Plan Assessment/Plan Anemia secondary to GI bleed. Dr. Gomes is following in GI consultation. Transfuse as needed, monitor hemoglobin and hematocrit. -Bleeding gastric ulcers, s/p hemostasis with placement of hemoclip during EGD by Dr Guallpa on 04/03/18. Continue Protonix. -S/p septic shock secondary to urinary tract infection, continue antibiotics per ID. Dr. Gzuman is following in infection disease consultation. -Hypoxemic respiratory failure, resolving. Dr. Nam is following in pulmonology consultation. -Acute kidney injury, resolved. Dr. Senior following in nephrology consultation. -Hypernatremia, resolved. -MRSA of nares, continue Bactroban -Dementia -Multiple pressure ulcers, optimize nutrition, continue vitamin C and zinc sulfate, off loading. -Protein calorie malnutrition Further recommendations based on clinical course. Plan of care discussed with Dr. Kiser. Result Diagram: 04/20/18 0542 04/20/18 0542 Results 24hrs Laboratory Tests Test 04/20/18 05:42 White Blood Count 9.1 Red Blood Count 2.88 L Hemoglobin 8.1 L Hematocrit 26.3 L Mean Corpuscular Volume 91.3 Mean Corpuscular Hemoglobin 28.1 L Mean Corpuscular Hemoglobin Concent 30.8 L Red Cell Distribution Width 16.6 H Platelet Count 309 # Mean Platelet Volume 12.8 H Immature Granulocytes % 2.600 H Neutrophils % 61.1 Lymphocytes % 22.4 Monocytes % 8.6 Eosinophils % 4.7 Basophils % 0.6 Nucleated Red Blood Cells % 0.0 Immature Granulocytes # 0.240 H Neutrophils # 5.6 Lymphocytes # 2.0 Monocytes # 0.8 Eosinophils # 0.4 Basophils # 0.1 Nucleated Red Blood Cells # 0.0 Sodium Level 135 Potassium Level 4.3 Chloride Level 101 Carbon Dioxide Level 31 Anion Gap 3 L Blood Urea Nitrogen 23 H Creatinine 0.73 Est Glomerular Filtrat Rate mL/min Glucose Level 116 Calcium Level 7.9 L Exam/Review of Systems Vital Signs Vitals Vital Signs Date Temp Pulse Resp B/P (MAP) Pulse Ox O2 O2 Flow FiO2 Time Delivery Rate 04/20/18 98.9 92 16 131/62 97 13:44 (85) 04/18/18 Room Air 12:13 Intake and Output 04/19/18 04/19/18 04/20/18 1515:00 23:00 07:00 IntakeIntake Total 240 ml 900 ml OutputOutput Total 1100 ml 1200 ml 750 ml BalanceBalance -1100 ml -960 ml 150 ml Exam Constitutional: non-verbal Psych: nl mood/affect Eyes: nl lids ENMT: nl external ears & nose Neck: supple Respiratory: clear to auscultation Cardiovascular: nl pulses, other (s1s2) Gastrointestinal: soft Musculoskeletal: muscle weakness Extremities: normal pulses Neurological: confused Medications Medications Current Medications Ondansetron HCl (Zofran Inj) 4 mg Q6H PRN IV NAUSEA AND/OR VOMITING; Start 03/27/18 at 20:00 Acetaminophen (Tylenol Tab) 650 mg Q6H PRN PO PAIN LEVEL 1-3 OR FEVER Last administered on 04/10/18 17:27; Admin Dose 650 MG; Start 03/27/18 at 20:00 Collagenase (Santyl) 1 applic DAILY TOP Last administered on 04/20/18 09:29; Admin Dose 1 APPLIC; Start 03/31/18 at 09:00 Mupirocin (Bactroban) 1 applic BID TOP Last administered on 04/20/18 09:30; Admin Dose 1 APPLIC; Start 03/31/18 at 11:00 Morphine Sulfate (morphine) 2 mg Q4H PRN IV PAIN LEVEL 7-10 Last administered on 04/05/18 21:59; Admin Dose 2 MG; Start 04/05/18 at 17:22 Ascorbic Acid (Vitamin C) 500 mg DAILY NGT Last administered on 04/20/18 09:30; Admin Dose 500 MG; Start 04/09/18 at 14:00 Zinc Sulfate (Zinc Sulfate) 220 mg DAILY NGT Last administered on 04/20/18 09:30; Admin Dose 220 MG; Start 04/10/18 at 09:00 Lansoprazole (Prevacid) 30 mg BID@0600,1800 PO Last administered on 1/20/19at 05:33; Admin Dose 30 MG; Start 04/14/18 at 18:00 Multivitamins (Multivitamin) 30 ml DAILY NGT Last administered on 04/20/18at 09:30; Admin Dose 30 ML; Start 04/16/18 at 16:30 MICHAEL ARZATE Apr 20, 2018 14:13
[2018-04-20 20:16] VITALS: BP 107/53; PULSE 94; RESP 16
[2018-04-21 01:37] VITALS: BP 123/58; PULSE 90; RESP 18
[2018-04-21] MEDS: LANSOPRAZOLE 30 MG CAP PO SCH ×2 (05:07→17:59)
--- NOTE | 2018-04-21 07:53 | CONS ---
Date/Time of Note Date/Time of Note DATE: 04/21/18 TIME: 07:48 Assessment/Plan Assessment/Plan Hospital Course 88 yo male presented with urosepsis and respiratory failure and coffee ground emesis 1. Upper GI bleed manifested through coffee ground emesis and melena -s/p EGD -resolved 2. Gastric ulcers, etiology of bleed 3. Hiatal hernia 4. Anemia secondary to gastric ulcer bleeding -stable but slowly trending down, no active GI bleeding noted, FOB neg 04/16 -monitor closely 5. E. coli, yeast (04/06) in urine, wbc trending down 6. Dysphagia -improving 7. Malnutrition. 8. Transaminitis -alk 742, alt 70, ast 101 -trending downward, US suggests cirrhosis 9. 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 Coarse slightly nodular liver suggesting cirrhosis. No focal hepatic masses. 2. Cholelithiasis. There is thickening of the gallbladder wall which is nonspec ific finding. Clinical correlation is recommended to exclude acute or chronic cholecystitis. 3. No biliary duct dilatation. 4. Small ascites and right pleural effusion. 5. Pancreas not visualized Plan: Smooth muscle titer 1:40, smooth muscle ab interp POS, Consider PEG, please let us know if primary would like to proceed with PEG. Monitor LFTs, liver profile in am. Monitor HH closely, no evidence of active GI bleeding, continue with PPI BID Aspiration precautions No NSAIDs Monitor HH and transfuse as necessary Monitor for acute GI bleeding Pt examined and plan of care discussed with Dr. Gomes Result Diagram: 04/21/18 0549 04/21/18 0549 Results 24hrs Laboratory Tests Test 04/21/18 05:49 White Blood Count 9.0 Red Blood Count 2.80 L Hemoglobin 7.8 L Hematocrit 25.5 L Mean Corpuscular Volume 91.1 Mean Corpuscular Hemoglobin 27.9 L Mean Corpuscular Hemoglobin Concent 30.6 L Red Cell Distribution Width 16.4 H Platelet Count 475 #H Mean Platelet Volume 11.3 H Immature Granulocytes % 3.500 H Neutrophils % 59.7 Lymphocytes % 22.0 Monocytes % 9.2 Eosinophils % 5.0 Basophils % 0.6 Nucleated Red Blood Cells % 0.0 Immature Granulocytes # 0.320 H Neutrophils # 5.4 Lymphocytes # 2.0 Monocytes # 0.8 Eosinophils # 0.5 Basophils # 0.1 Nucleated Red Blood Cells # 0.0 Sodium Level 135 Potassium Level 4.0 Chloride Level 101 Carbon Dioxide Level 32 H Anion Gap 2 L Blood Urea Nitrogen 23 H Creatinine 0.86 Est Glomerular Filtrat Rate mL/min Glucose Level 131 Calcium Level 7.8 L Total Bilirubin 0.0 L Direct Bilirubin 0.00 Indirect Bilirubin 0.0 Aspartate Amino Transf (AST/SGOT) 35 Alanine Aminotransferase (ALT/SGPT) 49 Alkaline Phosphatase 424 H Total Protein 5.3 L Albumin 2.0 L Consultation Date/Type/Reason Admit Date/Time Mar 27, 2018 at 20:08 Initial Consult Date 04/02/18 Requesting Provider: DEENA BASILIO 24 HR Interval Summary Free Text/Dictation NO evidence of GI bleeding. Does swallow nectar thickened PO diet but with encouragement, tolerating tube feeds at 60cc. Per charting multiple bm qd. RN is unaware of diarrhea, she will follow up with [facility]. Exam/Review of Systems Vital Signs Vitals Vital Signs Date Temp Pulse Resp B/P (MAP) Pulse Ox O2 O2 Flow FiO2 Time Delivery Rate 04/21/18 99.0 90 18 123/58 96 01:37 (79) 04/18/18 Room Air 12:13 Intake and Output 04/20/18 04/20/18 04/21/18 1515:00 23:00 07:00 IntakeIntake Total 60 ml 960 ml 1120 ml OutputOutput Total 1000 ml 950 ml BalanceBalance 60 ml -40 ml 170 ml Exam Constitutional: alert Psych: no complaints Head: normocephalic Respiratory: diminished breath sounds Gastrointestinal: soft, non-tender Neurological: other (a/ox1) Medications Medications Current Medications Ondansetron HCl (Zofran Inj) 4 mg Q6H PRN IV NAUSEA AND/OR VOMITING; Start 03/27/18 at 20:00 Acetaminophen (Tylenol Tab) 650 mg Q6H PRN PO PAIN LEVEL 1-3 OR FEVER Last administered on 04/10/18at 17:27; Admin Dose 650 MG; Start 03/27/18 at 20:00 Collagenase (Santyl) 1 applic DAILY TOP Last administered on 04/20/18 09:29; Admin Dose 1 APPLIC; Start 03/31/18 at 09:00 Mupirocin (Bactroban) 1 applic BID TOP Last administered on 04/20/18 20:21; Admin Dose 1 APPLIC; Start 03/31/18 at 11:00 Morphine Sulfate (morphine) 2 mg Q4H PRN IV PAIN LEVEL 7-10 Last administered on 04/05/18 21:59; Admin Dose 2 MG; Start 04/05/18 at 17:22 Ascorbic Acid (Vitamin C) 500 mg DAILY NGT Last administered on 04/20/18 09:30; Admin Dose 500 MG; Start 04/09/18 at 14:00 Zinc Sulfate (Zinc Sulfate) 220 mg DAILY NGT Last administered on 04/20/18 09:30; Admin Dose 220 MG; Start 04/10/18 at 09:00 Lansoprazole (Prevacid) 30 mg BID@0600,1800 PO Last administered on 04/21/18 05:07; Admin Dose 30 MG; Start 04/14/18 at 18:00 Multivitamins (Multivitamin) 30 ml DAILY NGT Last administered on 04/20/18 09:30; Admin Dose 30 ML; Start 04/16/18 at 16:30 SOREN DOVE Apr 21, 2018 07:53
[2018-04-21 07:55] VITALS: BP 133/60; PULSE 90; RESP 16
[2018-04-21] MEDS: ASCORBIC ACID 500 MG TAB NGT SCH (08:59)
[2018-04-21] MEDS: MULTIVITAMINS 30 ML CUP NGT SCH (08:59)
[2018-04-21] MEDS: ZINC SULFATE 220 MG CAP NGT SCH (08:59)
[2018-04-21] MEDS: MUPIROCIN 2% 22 GM OINT TOP SCH ×2 (08:59→21:08)
[2018-04-21] MEDS: BALSAM PERU/CASTOR OIL 60 GM TUBE TOP SCH ×2 (09:00→21:09)
[2018-04-21] MEDS: COLLAGENASE 5 GM (UD JAR) TOP SCH (09:00)
--- NOTE | 2018-04-21 11:55 | CONS ---
Date/Time of Note Date/Time of Note DATE: 04/21/18 TIME: 11:55 Assessment/Plan Assessment/Plan Assessment/Plan 1. Acute kidney injury on CKD due to ATN + prerenal azotemia 2. acute blood loss anemia- 3. acute hyperkalemia- now resolved 4. acute hypoxemic resp failure 5. Sepsis due to acute UTI 6. Severe metabolic acidosis due to FLORES 7. Hypernatremia 8. Upper GI bleeding Plan: BUN/Cr 23/0.86, other electrolytes stable, BP stable w/o midodrine Renal US showed No evidence of hydronephrosis or mass, Nonobstructing intrarenal calculi are seen in the mid right kidney measuring 4 mm in 7 mm. 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.8 x 6.7 x 8.3 cm will follow up Result Diagram: 04/21/18 0549 04/21/18 0549 Results 24hrs Laboratory Tests Test 04/21/18 05:49 White Blood Count 9.0 Red Blood Count 2.80 L Hemoglobin 7.8 L Hematocrit 25.5 L Mean Corpuscular Volume 91.1 Mean Corpuscular Hemoglobin 27.9 L Mean Corpuscular Hemoglobin Concent 30.6 L Red Cell Distribution Width 16.4 H Platelet Count 475 #H Mean Platelet Volume 11.3 H Immature Granulocytes % 3.500 H Neutrophils % 59.7 Lymphocytes % 22.0 Monocytes % 9.2 Eosinophils % 5.0 Basophils % 0.6 Nucleated Red Blood Cells % 0.0 Immature Granulocytes # 0.320 H Neutrophils # 5.4 Lymphocytes # 2.0 Monocytes # 0.8 Eosinophils # 0.5 Basophils # 0.1 Nucleated Red Blood Cells # 0.0 Sodium Level 135 Potassium Level 4.0 Chloride Level 101 Carbon Dioxide Level 32 H Anion Gap 2 L Blood Urea Nitrogen 23 H Creatinine 0.86 Est Glomerular Filtrat Rate mL/min Glucose Level 131 Calcium Level 7.8 L Total Bilirubin 0.0 L Direct Bilirubin 0.00 Indirect Bilirubin 0.0 Aspartate Amino Transf (AST/SGOT) 35 Alanine Aminotransferase (ALT/SGPT) 49 Alkaline Phosphatase 424 H Total Protein 5.3 L Albumin 2.0 L Consultation Date/Type/Reason Admit Date/Time Mar 27, 2018 at 20:08 Initial Consult Date 03/31/18 Type of Consult NEPHROLOGY Requesting Provider: DEENA BASILIO 24 HR Interval Summary Free Text/Dictation BUN/Cr 23/0.86, no acute events overnight, BP stable Exam/Review of Systems Vital Signs Vitals Vital Signs Date Temp Pulse Resp B/P (MAP) Pulse Ox O2 O2 Flow FiO2 Time Delivery Rate 04/21/18 97.5 90 16 133/60 98 07:55 (84) 04/18/18 Room Air 12:13 Intake and Output 04/20/18 04/20/18 04/21/18 1515:00 23:00 07:00 IntakeIntake Total 60 ml 960 ml 1120 ml OutputOutput Total 1000 ml 950 ml BalanceBalance 60 ml -40 ml 170 ml Exam Constitutional: alert Psych: no complaints Head: normocephalic ENMT: nl external ears & nose Neck: supple, non-tender Respiratory: clear to auscultation, normal air movement, diminished breath sounds Cardiovascular: regular rate and rhythm, nl pulses Gastrointestinal: soft, non-tender Musculoskeletal: nl extremities to inspection Medications Medications Current Medications Ondansetron HCl (Zofran Inj) 4 mg Q6H PRN IV NAUSEA AND/OR VOMITING; Start 03/27/18 at 20:00 Acetaminophen (Tylenol Tab) 650 mg Q6H PRN PO PAIN LEVEL 1-3 OR FEVER Last administered on 04/10/18 17:27; Admin Dose 650 MG; Start 03/27/18 at 20:00 Collagenase (Santyl) 1 applic DAILY TOP Last administered on 04/21/18 09:00; A dmin Dose 1 APPLIC; Start 03/31/18 at 09:00 Mupirocin (Bactroban) 1 applic BID TOP Last administered on 04/21/18 08:59; Admin Dose 1 APPLIC; Start 03/31/18 at 11:00 Morphine Sulfate (morphine) 2 mg Q4H PRN IV PAIN LEVEL 7-10 Last administered on 04/05/18 21:59; Admin Dose 2 MG; Start 04/05/18 at 17:22 Ascorbic Acid (Vitamin C) 500 mg DAILY NGT Last administered on 04/21/18 08:59; Admin Dose 500 MG; Start 04/09/18 at 14:00 Zinc Sulfate (Zinc Sulfate) 220 mg DAILY NGT Last administered on 04/21/18 08:59; Admin Dose 220 MG; Start 1/10/19 at 09:00 Lansoprazole (Prevacid) 30 mg BID@0600,1800 PO Last administered on 04/21/18at 05:07; Admin Dose 30 MG; Start 04/14/18 at 18:00 Multivitamins (Multivitamin) 30 ml DAILY NGT Last administered on 04/21/18at 08:59; Admin Dose 30 ML; Start 04/16/18 at 16:30 STEVEN BLANCO MD Apr 21, 2018 11:55
[2018-04-21 14:55] VITALS: BP 130/60; PULSE 90; RESP 16
[2018-04-21 20:07] VITALS: BP 114/55; PULSE 89; RESP 16
--- NOTE | 2018-04-21 20:38 | PN ---
Date/Time of Note Date/Time of Note DATE: 04/21/18 TIME: 20:33 Assessment/Plan VTE Prophylaxis Risk score (from Ns)>0 risk: 5 SCD applied (from [facility] [place]): Yes Pharmacological prophylaxis: NA/contraindicated Pharm contraindication: bleeding Lines/Catheters [facility] Saline Lock Urinary Cath still in place: Yes Reason Cath still needed: urinary retention Assessment/Plan Hospital Course Patient awake alert to name, otherwise pleasantly confused, according to nursing staff patient has a poor p.o. intake refused breakfast today will obtain calorie count if patient continues to have poor p.o. intake will consider G-tube plac ement. Assessment/Plan -Anemia secondary to GI bleed. Dr. Gomes is following in GI consultation. Transfuse as needed, monitor hemoglobin and hematocrit. -Bleeding gastric ulcers, s/p hemostasis with placement of hemoclip during EGD by Dr Guallpa on 04/03/18. Continue Protonix. -S/p septic shock secondary to urinary tract infection, continue antibiotics per ID. Dr. Guzman is following in infection disease consultation. -Hypoxemic respiratory failure, resolving. Dr. Nam is following in pulmonology consultation. -Acute kidney injury, resolved. Dr. Senior following in nephrology consultation. -Hypernatremia, resolved. -MRSA of nares, continue Bactroban -Dementia -Multiple pressure ulcers, optimize nutrition, continue vitamin C and zinc sulfate, off loading. -Protein calorie malnutrition Further recommendations based on clinical course. Plan of care discussed with Dr. Kiser. Result Diagram: 04/21/18 0549 04/21/18 0549 Results 24hrs Laboratory Tests Test 04/21/18 05:49 White Blood Count 9.0 Red Blood Count 2.80 L Hemoglobin 7.8 L Hematocrit 25.5 L Mean Corpuscular Volume 91.1 Mean Corpuscular Hemoglobin 27.9 L Mean Corpuscular Hemoglobin Concent 30.6 L Red Cell Distribution Width 16.4 H Platelet Count 475 #H Mean Platelet Volume 11.3 H Immature Granulocytes % 3.500 H Neutrophils % 59.7 Lymphocytes % 22.0 Monocytes % 9.2 Eosinophils % 5.0 Basophils % 0.6 Nucleated Red Blood Cells % 0.0 Immature Granulocytes # 0.320 H Neutrophils # 5.4 Lymphocytes # 2.0 Monocytes # 0.8 Eosinophils # 0.5 Basophils # 0.1 Nucleated Red Blood Cells # 0.0 Sodium Level 135 Potassium Level 4.0 Chloride Level 101 Carbon Dioxide Level 32 H Anion Gap 2 L Blood Urea Nitrogen 23 H Creatinine 0.86 Est Glomerular Filtrat Rate mL/min Glucose Level 131 Calcium Level 7.8 L Total Bilirubin 0.0 L Direct Bilirubin 0.00 Indirect Bilirubin 0.0 Aspartate Amino Transf (AST/SGOT) 35 Alanine Aminotransferase (ALT/SGPT) 49 Alkaline Phosphatase 424 H Total Protein 5.3 L Albumin 2.0 L Exam/Review of Systems Vital Signs Vitals Vital Signs Date Temp Pulse Resp B/P (MAP) Pulse Ox O2 O2 Flow FiO2 Time Delivery Rate 04/21/18 97.5 89 16 114/55 97 20:07 (74) 04/18/18 Room Air 12:13 Intake and Output 04/20/18 04/20/18 04/21/18 1515:00 23:00 07:00 IntakeIntake Total 60 ml 960 ml 1120 ml OutputOutput Total 1000 ml 950 ml BalanceBalance 60 ml -40 ml 170 ml Exam Constitutional: alert, oriented, frail ENMT: nl external ears & nose, other (NGT) Respiratory: diminished breath sounds Cardiovascular: nl pulses Gastrointestinal: soft, non-tender Musculoskeletal: muscle weakness Extremities: normal pulses Medications Medications Current Medications Ondansetron HCl (Zofran Inj) 4 mg Q6H PRN IV NAUSEA AND/OR VOMITING; Start 03/27/18 at 20:00 Acetaminophen (Tylenol Tab) 650 mg Q6H PRN PO PAIN LEVEL 1-3 OR FEVER Last administered on 04/10/18 17:27; Admin Dose 650 MG; Start 03/27/18 at 20:00 Collagenase (Santyl) 1 applic DAILY TOP Last administered on 04/21/18 09:00; Admin Dose 1 APPLIC; Start 03/31/18 at 09:00 Mupirocin (Bactroban) 1 applic BID TOP Last administered on 04/21/18 08:59; Admin Dose 1 APPLIC; Start 03/31/18 at 11:00 Morphine Sulfate (morphine) 2 mg Q4H PRN IV PAIN LEVEL 7-10 Last administered on 04/05/18 21:59; Admin Dose 2 MG; Start 04/05/18 at 17:22 Ascorbic Acid (Vitamin C) 500 mg DAILY NGT Last administered on 04/21/18 08:59; Admin Dose 500 MG; Start 04/09/18 at 14:00 Zinc Sulfate (Zinc Sulfate) 220 mg DAILY NGT Last administered on 04/21/18 08:59; Admin Dose 220 MG; Start 04/10/18 at 09:00 Lansoprazole (Prevacid) 30 mg BID@0600,1800 PO Last administered on 04/21/18 17:59; Admin Dose 30 MG; Start 04/14/18 at 18:00 Multivitamins (Multivitamin) 30 ml DAILY NGT Last administered on 04/21/18 08:59; Admin Dose 30 ML; Start 04/16/18 at 16:30 JUDY CORNEJO Apr 21, 2018 20:38
[2018-04-22 01:18] VITALS: BP 124/61; PULSE 86; RESP 16
[2018-04-22] MEDS: LANSOPRAZOLE 30 MG CAP PO SCH ×2 (06:03→18:19)
[2018-04-22 07:42] VITALS: BP 117/57; PULSE 67; RESP 18
[2018-04-22] MEDS: ASCORBIC ACID 500 MG TAB NGT SCH (08:26)
[2018-04-22] MEDS: MULTIVITAMINS 30 ML CUP NGT SCH (08:26)
[2018-04-22] MEDS: ZINC SULFATE 220 MG CAP NGT SCH (08:26)
[2018-04-22] MEDS: MUPIROCIN 2% 22 GM OINT TOP SCH ×2 (08:26→20:36)
[2018-04-22] MEDS: BALSAM PERU/CASTOR OIL 60 GM TUBE TOP SCH ×2 (08:27→20:37)
[2018-04-22] MEDS: COLLAGENASE 5 GM (UD JAR) TOP SCH (08:27)
--- NOTE | 2018-04-22 12:09 | CONS ---
Assessment/Plan Assessment/Plan Assessment/Plan 1. Acute kidney injury on CKD due to ATN + prerenal azotemia 2. acute blood loss anemia- 3. acute hyperkalemia- now resolved 4. acute hypoxemic resp failure 5. Sepsis due to acute UTI 6. Severe metabolic acidosis due to FLORES 7. Hypernatremia 8. Upper GI bleeding Plan: BUN/Cr 23/0.86, other electrolytes stable, BP stable w/o midodrine Renal US showed No evidence of hydronephrosis or mass, Nonobstructing intrarenal calculi are seen in the mid right kidney measuring 4 mm in 7 mm. 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.8 x 6.7 x 8.3 cm will follow up Result Diagram: 04/21/18 0549 04/21/18 0549 Consultation Date/Type/Reason Admit Date/Time Mar 27, 2018 at 20:08 Initial Consult Date 03/31/18 Type of Consult NEPHROLOGY Requesting Provider: DEENA BASILIO Exam/Review of Systems Vital Signs Vitals Vital Signs Date Temp Pulse Resp B/P (MAP) Pulse Ox O2 O2 Flow FiO2 Time Delivery Rate 04/22/18 97.8 67 18 117/57 96 Room Air 07:42 (77) Intake and Output 04/21/18 04/21/18 04/22/18 1515:00 23:00 07:00 IntakeIntake Total 120 ml 970 ml OutputOutput Total 1100 ml BalanceBalance -980 ml 970 ml Exam Constitutional: alert Psych: no complaints Head: normocephalic ENMT: nl external ears & nose Neck: supple, non-tender Respiratory: clear to auscultation, normal air movement, diminished breath sounds Cardiovascular: regular rate and rhythm, nl pulses Gastrointestinal: soft, non-tender Musculoskeletal: nl extremities to inspection Medications Medications Current Medications Ondansetron HCl (Zofran Inj) 4 mg Q6H PRN IV NAUSEA AND/OR VOMITING; Start 03/27/18 at 20:00 Acetaminophen (Tylenol Tab) 650 mg Q6H PRN PO PAIN LEVEL 1-3 OR FEVER Last administered on 04/10/18at 17:27; Admin Dose 650 MG; Start 03/27/18 at 20:00 Collagenase (Santyl) 1 applic DAILY TOP Last administered on 04/22/18at 08:27; Admin Dose 1 APPLIC; Start 03/31/18 at 09:00 Mupirocin (Bactroban) 1 applic BID TOP Last administered on 04/22/18 08:26; Admin Dose 1 APPLIC; Start 03/31/18 at 11:00 Morphine Sulfate (morphine) 2 mg Q4H PRN IV PAIN LEVEL 7-10 Last administered on 04/05/18 21:59; Admin Dose 2 MG; Start 04/05/18 at 17:22 Ascorbic Acid (Vitamin C) 500 mg DAILY NGT Last administered on 04/22/18 08:26; Admin Dose 500 MG; Start 04/09/18 at 14:00 Zinc Sulfate (Zinc Sulfate) 220 mg DAILY NGT Last administered on 04/22/18 08: 26; Admin Dose 220 MG; Start 04/10/18 at 09:00 Lansoprazole (Prevacid) 30 mg BID@0600,1800 PO Last administered on 04/22/18 06:03; Admin Dose 30 MG; Start 04/14/18 at 18:00 Multivitamins (Multivitamin) 30 ml DAILY NGT Last administered on 04/22/18 08:26; Admin Dose 30 ML; Start 04/16/18 at 16:30 Date/Time of Note Date/Time of Note DATE: 04/22/18 TIME: 12:09 STEVEN BLANCO MD Apr 22, 2018 12:09
[2018-04-22 14:00] VITALS: BP 136/60; PULSE 84; RESP 18
--- NOTE | 2018-04-22 16:09 | DS ---
Date/Time of Note Date/Time of Note DATE: 04/22/18 TIME: 16:07 Discharge Summary Admission/Discharge Info Admit Date/Time Mar 27, 2018 at 20:08 Discharge Date/Time Patient Condition: Stable Hx of Present Illness Patient with dementia was transferred from [facility] because of possible GI bleed and altered mental status. Patient was found to have an urinary tract infection and will be admitted for further treatment. Hospital Course Pending transfer to [facility]. -Anemia secondary to GI bleed. Dr. Gomes is following in GI consultation. Transfuse as needed, monitor hemoglobin and hematocrit. -Bleeding gastric ulcers, s/p hemostasis with placement of hemoclip during EGD by Dr Guallpa on 04/03/18. Continue Protonix. -S/p septic shock secondary to urinary tract infection, continue antibiotics per ID. Dr. Guzman is following in infection disease consultation. -Hypoxemic respiratory failure, resolving. Dr. Nam is following in pulmonology consultation. -Acute kidney injury, resolved. Dr. Senior following in nephrology consultation. -Hypernatremia, resolved. -MRSA of nares, continue Bactroban -Dementia -Multiple pressure ulcers, optimize nutrition, continue vitamin C and zinc sulfate, off loading. -Protein calorie malnutrition, continue NG tube feeding, continue p.o. diet, multivitamins, calorie count. Plan of care discussed with Dr. Kiser. Home Meds Reported Medications Triamcinolone Acetonide* (Kenalog*) 0.1%-15GM Cr, 1 APPLIC TOP BID, #1 TUB 03/27/18 Collagenase* (Santyl*) 30 Gm Oint..gm., 1 APPLIC TOP .SOILED PRN for SOILED, #1 TUB 03/27/18 Hydrocodone/Acetaminophen (Hood 5-325 Tablet) 1 Each Tablet, 1 EACH PO Q6H PRN for MILD PAIN LEVEL 1-3, TAB 03/27/18 Hydrocodone/Acetaminophen (Hood 5-325 Tablet) 1 Each Tablet, 1 EACH PO DAILY PRN for WOUND CARE, TAB 03/27/18 Memantine* (Namenda* XR) 28 Mg Cap.spr.24, 28 MG PO DAILY, #30 TAB START TAKING-04/01/18 03/27/18 Memantine* (Namenda* XR) 21 Mg Cap.spr.24, 21 MG PO DAILY, #30 TAB FOR 7 DAYS,STOP TAKING 04/01/18 03/27/18 Enoxaparin Sodium* (Enoxaparin Sodium*) 30 Mg/0.3 Ml Syringe, 30 MG SC DAILY, SYR 03/27/18 Tamsulosin Hcl* (Tamsulosin Hcl*) 0.4 Mg Cap.er.24h, 0.4 MG PO HS, CAP 02/18/18 Protein Supplement (Promod) 946 Ml Liquid, 30 ML PO TID 02/18/18 Ondansetron Hcl* (Zofran*) 4 Mg Tab, 4 MG PO Q6H PRN for NAUSEA AND OR VOMITING, TAB 02/18/18 Multivitamin with Minerals (Multivitamins with Minerals) 1 Each Tablet, 1 EACH PO DAILY, TAB 02/18/18 Lactobacillus Acidophilus* (Lactinex*) 1 Tab Chew, 1 TAB PO BID, TAB 02/18/18 Famotidine* (Famotidine*) 20 Mg Tablet, 20 MG PO DAILY, #30 TAB 02/18/18 Docusate Sodium* (Docusate Sodium*) 100 Mg Capsule, 100 MG PO BID, #60 CAP 02/18/18 Bisacodyl* (Bisacodyl*) 10 Mg Supp, 10 MG RI Q24H for CONSTIPATION, SUPP 02/18/18 Ascorbic Acid (Vitamin C) 500 Mg Tab, 500 MG PO DAILY, TAB 02/18/18 Primary Care Provider Jamie Kiser MD Time spent on discharge: > 30 minutes JUDY CORNEJO Apr 22, 2018 16:09
--- NOTE | 2018-04-22 16:26 | PN ---
Date/Time of Note Date/Time of Note DATE: 04/22/18 TIME: 16:23 Assessment/Plan VTE Prophylaxis Risk score (from Ns)>0 risk: 8 SCD applied (from [facility] [place]): Yes Pharmacological prophylaxis: NA/contraindicated Pharm contraindication: bleeding Lines/Catheters [facility] Type (from [facility] Saline Lock Central line still needed: Yes Urinary Cath still in place: Yes Reason Cath still needed: urinary retention Assessment/Plan Hospital Course Patient has poor p.o. intake according to RN continue calorie count, most likely patient needs G-tube, however, patient has no family to consent, web content & social media manager consult. Assessment/Plan -Anemia secondary to GI bleed. Dr. Gomes is following in GI consultation. Tra nsfuse as needed, monitor hemoglobin and hematocrit. -Bleeding gastric ulcers, s/p hemostasis with placement of hemoclip during EGD by Dr Guallpa on 04/03/18. Continue Protonix. -S/p septic shock secondary to urinary tract infection, continue antibiotics per ID. Dr. Guzman is following in infection disease consultation. -Hypoxemic respiratory failure, resolving. Dr. Nam is following in pulmono logy consultation. -Acute kidney injury, resolved. Dr. Senior following in nephrology consultation. -Hypernatremia, resolved. -MRSA of nares, continue Bactroban -Dementia -Multiple pressure ulcers, optimize nutrition, continue vitamin C and zinc sulfate, off loading. -Protein calorie malnutrition Further recommendations based on clinical course. Plan of care discussed with Dr. Kiser. Result Diagram: 04/21/18 0549 04/21/18 0549 Exam/Review of Systems Vital Signs Vitals Vital Signs Date Temp Pulse Resp B/P (MAP) Pulse Ox O2 O2 Flow FiO2 Time Delivery Rate 04/22/18 97.5 84 18 136/60 98 Room Air 14:00 (85) Intake and Output 04/21/18 04/21/18 04/22/18 1515:00 23:00 07:00 IntakeIntake Total 120 ml 970 ml OutputOutput Total 1100 ml BalanceBalance -980 ml 970 ml Exam Constitutional: alert, oriented, frail ENMT: nl external ears & nose, other (NGT) Respiratory: diminished breath sounds Cardiovascular: nl pulses Gastrointestinal: soft, non-tender Musculoskeletal: muscle weakness Extremities: normal pulses Medications Medications Current Medications Ondansetron HCl (Zofran Inj) 4 mg Q6H PRN IV NAUSEA AND/OR VOMITING; Start 03/27/18 at 20:00 Acetaminophen (Tylenol Tab) 650 mg Q6H PRN PO PAIN LEVEL 1-3 OR FEVER Last administered on 04/10/18 17:27; Admin Dose 650 MG; Start 03/27/18 at 20:00 Collagenase (Santyl) 1 applic DAILY TOP Last administered on 04/22/18 08:27; Admin Dose 1 APPLIC; Start 03/31/18 at 09:00 Mupirocin (Bactroban) 1 applic BID TOP Last administered on 04/22/18 08:26; Admin Dose 1 APPLIC; Start 03/31/18 at 11:00 Morphine Sulfate (morphine) 2 mg Q4H PRN IV PAIN LEVEL 7-10 Last administered on 04/05/18 21:59; Admin Dose 2 MG; Start 04/05/18 at 17:22 Ascorbic Acid (Vitamin C) 500 mg DAILY NGT Last administered on 04/22/18 08:2 6; Admin Dose 500 MG; Start 04/09/18 at 14:00 Zinc Sulfate (Zinc Sulfate) 220 mg DAILY NGT Last administered on 04/22/18 08:26; Admin Dose 220 MG; Start 04/10/18 at 09:00 Lansoprazole (Prevacid) 30 mg BID@0600,1800 PO Last administered on 04/22/18 06:03; Admin Dose 30 MG; Start 04/14/18 at 18:00 Multivitamins (Multivitamin) 30 ml DAILY NGT Last administered on 04/22/18 08:26; Admin Dose 30 ML; Start 04/16/18 at 16:30 JUDY CORNEJO Apr 22, 2018 16:26
--- NOTE | 2018-04-22 18:51 | CONS ---
Assessment/Plan Assessment/Plan Assessment/Plan Assessment/Plan Hospital Course 88 yo male presented with urosepsis and respiratory failure and coffee ground emesis 1. Upper GI bleed manifested through coffee ground emesis and melena -s/p EGD -resolved 2. Gastric ulcers, etiology of bleed 3. Hiatal hernia 4. Anemia secondary to gastric ulcer bleeding -stable but slowly trending down, no active GI bleeding noted, FOB neg 04/16 -monitor closely 5. E. coli, yeast (04/06) in urine, wbc trending down 6. Dysphagia -improving 7. Malnutrition. 8. Transaminitis -alk 742, alt 70, ast 101 -trending downward, US suggests cirrhosis 9. 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 Coarse slightly nodular liver suggesting cirrhosis. No focal hepatic masses. 2. Cholelithiasis. There is thickening of the gallbladder wall which is nonspecific finding. Clinical correlation is recommended to exclude acute or chronic cholecystitis. 3. No biliary duct dilatation. 4. Small ascites and right pleural effusion. 5. Pancreas not visualized Plan: Smooth muscle titer 1:40, smooth muscle ab interp POS, Consider PEG, please let us know if primary would like to proceed with PEG. MRCP was cancelled because pt is unable to tell us if he has metal in body, no family. CT of abd does not show metal. US of abd done instead. Monitor LFTs, liver profile in am. Monitor HH closely, no evidence of active GI bleeding, continue with PPI BID Aspiration precautions No NSAIDs Monitor HH and transfuse as necessary Monitor for acute GI bleeding. structural steel worker helper to find the family to get the consent for PEG Result Diagram: 04/21/18 0549 04/21/18 0549 Consultation Date/Type/Reason Admit Date/Time Mar 27, 2018 at 20:08 Initial Consult Date 04/02/18 Requesting Provider: DEENA BASILIO 24 HR Interval Summary Constitutional: poor po Exam/Review of Systems Vital Signs Vitals Vital Signs Date Temp Pulse Resp B/P (MAP) Pulse Ox O2 O2 Flow FiO2 Time Delivery Rate 04/22/18 97.5 84 18 136/60 98 Room Air 14:00 (85) Intake and Output 04/21/18 04/21/18 04/22/18 1515:00 23:00 07:00 IntakeIntake Total 120 ml 970 ml OutputOutput Total 1100 ml BalanceBalance -980 ml 970 ml Exam Constitutional: alert, oriented, well developed Psych: no complaints, nl mood/affect Head: normocephalic, atraumatic Eyes: nl conjunctiva, EOMI, nl lids, nl sclera, PERRL ENMT: nl external ears & nose, nl lips & teeth, nl nasal mucosa & septum Neck: supple, non-tender Respiratory: clear to auscultation, normal air movement Cardiovascular: regular rate and rhythm, nl pulses Gastrointestinal: soft, nl liver, spleen, non-tender Musculoskeletal: nl extremities to inspection, nl gait and stance Extremities: normal pulses Neurological: BOX NAILER II-XII intact, nl mental status, nl speech, nl strength Skin: nl turgor; No rash or lesions Lymph: nl lymph nodes Medications Medications Current Medications Ondansetron HCl (Zofran Inj) 4 mg Q6H PRN IV NAUSEA AND/OR VOMITING; Start 03/27/18 at 20:00 Acetaminophen (Tylenol Tab) 650 mg Q6H PRN PO PAIN LEVEL 1-3 OR FEVER Last administered on 04/10/18 17:27; Admin Dose 650 MG; Start 03/27/18 at 20:00 Collagenase (Santyl) 1 applic DAILY TOP Last administered on 04/22/18 08:27; Admin Dose 1 APPLIC; Start 03/31/18 at 09:00 Mupirocin (Bactroban) 1 applic BID TOP Last administered on 04/22/18 08:26; Admin Dose 1 APPLIC; Start 03/31/18 at 11:00 Morphine Sulfate (morphine) 2 mg Q4H PRN IV PAIN LEVEL 7-10 Last administered on 04/05/18 21:59; Admin Dose 2 MG; Start 04/05/18 at 17:22 Ascorbic Acid (Vitamin C) 500 mg DAILY NGT Last administered on 04/22/18 08:2 6; Admin Dose 500 MG; Start 04/09/18 at 14:00 Zinc Sulfate (Zinc Sulfate) 220 mg DAILY NGT Last administered on 04/22/18 08:26; Admin Dose 220 MG; Start 04/10/18 at 09:00 Lansoprazole (Prevacid) 30 mg BID@0600,1800 PO Last administered on 04/22/18at 18:19; Admin Dose 30 MG; Start 04/14/18 at 18:00 Multivitamins (Multivitamin) 30 ml DAILY NGT Last administered on 04/22/18at 08:26; Admin Dose 30 ML; Start 04/16/18 at 16:30 Date/Time of Note Date/Time of Note DATE: 04/22/18 TIME: 18:50 ATTILA UMANZOR MD Apr 22, 2018 18:51
[2018-04-22 20:00] VITALS: BP 129/60; PULSE 89; RESP 18
[2018-04-23 02:00] VITALS: BP_SYST 109; BP_SYST 131; BP_DIAS 66; PULSE 104; PULSE 73; RESP 18
[2018-04-23] MEDS: LANSOPRAZOLE 30 MG CAP PO SCH ×2 (05:32→18:22)
[2018-04-23 08:08] VITALS: BP 122/60; PULSE 86; RESP 18
--- NOTE | 2018-04-23 08:16 | CONS ---
Assessment/Plan Assessment/Plan Assessment/Plan 1. Acute kidney injury on CKD due to ATN + prerenal azotemia 2. acute blood loss anemia- 3. acute hyperkalemia- now resolved 4. acute hypoxemic resp failure 5. Sepsis due to acute UTI 6. Severe metabolic acidosis due to FLORES 7. Hypernatremia 8. Upper GI bleeding Plan: BUN/Cr 23/0.86, other electrolytes stable, BP stable w/o midodrine Renal US showed No evidence of hydronephrosis or mass, Nonobstructing intrarenal calculi are seen in the mid right kidney measuring 4 mm in 7 mm. 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.8 x 6.7 x 8.3 cm will follow up Result Diagram: 04/21/18 0549 04/21/18 0549 Consultation Date/Type/Reason Admit Date/Time Mar 27, 2018 at 20:08 Initial Consult Date 03/31/18 Type of Consult NEPHROLOGY Requesting Provider: DEENA BASILIO Exam/Review of Systems Vital Signs Vitals Vital Signs Date Temp Pulse Resp B/P (MAP) Pulse Ox O2 O2 Flow FiO2 Time Delivery Rate 04/23/18 98.0 86 18 122/60 97 Room Air 08:08 (80) Intake and Output 04/22/18 04/22/18 04/23/18 1515:00 23:00 07:00 IntakeIntake Total 240 ml 1090 ml OutputOutput Total 1000 ml BalanceBalance -760 ml 1090 ml Exam Constitutional: alert Psych: no complaints Head: normocephalic ENMT: nl external ears & nose Neck: supple, non-tender Respiratory: clear to auscultation, normal air movement, diminished breath sounds Cardiovascular: regular rate and rhythm, nl pulses Gastrointestinal: soft, non-tender Musculoskeletal: nl extremities to inspection Medications Medications Current Medications Ondansetron HCl (Zofran Inj) 4 mg Q6H PRN IV NAUSEA AND/OR VOMITING; Start 03/27/18 at 20:00 Acetaminophen (Tylenol Tab) 650 mg Q6H PRN PO PAIN LEVEL 1-3 OR FEVER Last administered on 04/10/18at 17:27; Admin Dose 650 MG; Start 03/27/18 at 20:00 Collagenase (Santyl) 1 applic DAILY TOP Last administered on 04/22/18at 08:27; Admin Dose 1 APPLIC; Start 03/31/18 at 09:00 Mupirocin (Bactroban) 1 applic BID TOP Last administered on 04/22/18at 20:36; Admin Dose 1 APPLIC; Start 03/31/18 at 11:00 Morphine Sulfate (morphine) 2 mg Q4H PRN IV PAIN LEVEL 7-10 Last administered on 04/05/18 21:59; Admin Dose 2 MG; Start 04/05/18 at 17:22 Ascorbic Acid (Vitamin C) 500 mg DAILY NGT Last administered on 04/22/18at 08:26; Admin Dose 500 MG; Start 04/09/18 at 14:00 Zinc Sulfate (Zinc Sulfate) 220 mg DAILY NGT Last administered on 04/22/18at 0 8:26; Admin Dose 220 MG; Start 04/10/18 at 09:00 Lansoprazole (Prevacid) 30 mg BID@0600,1800 PO Last administered on 04/23/18at 05:32; Admin Dose 30 MG; Start 04/14/18 at 18:00 Multivitamins (Multivitamin) 30 ml DAILY NGT Last administered on 04/22/18at 08:26; Admin Dose 30 ML; Start 04/16/18 at 16:30 Date/Time of Note Date/Time of Note DATE: 04/23/18 TIME: 08:16 STEVEN BLANCO MD Apr 23, 2018 08:16
[2018-04-23] MEDS: MUPIROCIN 2% 22 GM OINT TOP SCH ×2 (09:10→21:14)
[2018-04-23] MEDS: MULTIVITAMINS 30 ML CUP NGT SCH (09:10)
[2018-04-23] MEDS: ZINC SULFATE 220 MG CAP NGT SCH (09:10)
[2018-04-23] MEDS: COLLAGENASE 5 GM (UD JAR) TOP SCH (09:10)
[2018-04-23] MEDS: ASCORBIC ACID 500 MG TAB NGT SCH (09:10)
[2018-04-23] MEDS: BALSAM PERU/CASTOR OIL 60 GM TUBE TOP SCH ×2 (09:11→21:14)
--- NOTE | 2018-04-23 09:43 | CONS ---
Assessment/Plan Assessment/Plan Assessment/Plan . tolerating NGT feeding no residual stools soft, brown. hgb sl trend down around mean abd soft NT Upper GI bleed manifested through coffee ground emesis and melena -s/p EGD -resolved 2. Gastric ulcers, etiology of bleed 3. Hiatal hernia 4. Anemia secondary to gastric ulcer bleeding -stable but slowly trending down, no active GI bleeding noted, FOB neg 04/16 -monitor closely n 6. Dysphagia -improving 7. Malnutrition. 8. Transaminitis -alk 742, alt 70, ast 101 -trending downward, US suggests cirrhosis 9. 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 Coarse slightly nodular liver suggesting cirrhosis. No focal hepatic masses. 2. Cholelithiasis. There is thickening of the gallbladder wall which is nonspecific finding. Clinical correlation is recommended to exclude acute or chronic cholecystitis. 3. No biliary duct dilatation. 4. Small ascites and right pleural effusion. 5. Pancreas not visualized GI lewis stable, tolerating feedings rec PEG, awaiting placement, legal guardian consent manager social services investigation placement and obtain for PEG Result Diagram: 04/21/18 0549 04/21/18 0549 Consultation Date/Type/Reason Admit Date/Time Mar 27, 2018 at 20:08 Initial Consult Date 04/02/18 Requesting Provider: DEENA BASILIO Exam/Review of Systems Vital Signs Vitals Vital Signs Date Temp Pulse Resp B/P (MAP) Pulse Ox O2 O2 Flow FiO2 Time Delivery Rate 04/23/18 98.0 86 18 122/60 97 Room Air 08:08 (80) Intake and Output 04/22/18 04/22/18 04/23/18 1515:00 23:00 07:00 IntakeIntake Total 240 ml 1090 ml OutputOutput Total 1000 ml BalanceBalance -760 ml 1090 ml Medications Medications Current Medications Ondansetron HCl (Zofran Inj) 4 mg Q6H PRN IV NAUSEA AND/OR VOMITING; Start 03/27/18 at 20:00 Acetaminophen (Tylenol Tab) 650 mg Q6H PRN PO PAIN LEVEL 1-3 OR FEVER Last administered on 04/10/18 17:27; Admin Dose 650 MG; Start 03/27/18 at 20:00 Collagenase (Santyl) 1 applic DAILY TOP Last administered on 04/23/18 09:10; Admin Dose 1 APPLIC; Start 03/31/18 at 09:00 Mupirocin (Bactroban) 1 applic BID TOP Last administered on 04/23/18 09:10; Admin Dose 1 APPLIC; Start 03/31/18 at 11:00 Morphine Sulfate (morphine) 2 mg Q4H PRN IV PAIN LEVEL 7-10 Last administered on 04/05/18 21:59; Admin Dose 2 MG; Start 04/05/18 at 17:22 Ascorbic Acid (Vitamin C) 500 mg DAILY NGT Last administered on 04/23/18 09:10; Admin Dose 500 MG; Start 04/09/18 at 14:00 Zinc Sulfate (Zinc Sulfate) 220 mg DAILY NGT Last administered on 04/23/18 09:10; Admin Dose 220 MG; Start 04/10/18 at 09:00 Lansoprazole (Prevacid) 30 mg BID@0600,1800 PO Last administered on 04/23/18 05:32; Admin Dose 30 MG; Start 04/14/18 at 18:00 Multivitamins (Multivitamin) 30 ml DAILY NGT Last administered on 04/23/18 09:10; Admin Dose 30 ML; Start 04/16/18 at 16:30 Date/Time of Note Date/Time of Note DATE: 04/23/18 TIME: 09:40 KULDIP BUI MD Apr 23, 2018 09:43
--- NOTE | 2018-04-23 13:37 | CONS ---
Assessment/Plan Assessment/Plan Hospital Course Patient is awake and looks comfortable no fevers overnight no labs this morning he is off antibiotics Indwelling: NG tube [place] Physical examination: Well-developed chronically ill-appearing wasted elderly man who is in no distress. Head atraumatic normocephalic sclera nonicteric. Neck is supple chest rise symmetrical breath sounds diminished bases. Heart: S1-S2 abdomen distended tender on palpation extremities without cyanosis Assessment: 1. Status post septic shock 2. Status post GI bleeding===> EGD with Hemoclip placement 3. S/p E. coli ESBL UTI, now + yeast 4. MRSA nares colonization 5. Dysphagia 6. Dementia Plan: Remains stable, continue observing off antibiotics DC Bactroban, DC isolation ?PEG Result Diagram: 04/21/18 0549 04/21/18 0549 Consultation Date/Type/Reason Admit Date/Time Mar 27, 2018 at 20:08 Initial Consult Date 04/02/18 Type of Consult ID Requesting Provider: DEENA BASILIO Exam/Review of Systems Vital Signs Vitals Vital Signs Date Temp Pulse Resp B/P (MAP) Pulse Ox O2 O2 Flow FiO2 Time Delivery Rate 04/23/18 98.0 86 18 122/60 97 Room Air 08:08 (80) Intake and Output 04/22/18 04/22/18 04/23/18 1515:00 23:00 07:00 IntakeIntake Total 240 ml 1090 ml OutputOutput Total 1000 ml BalanceBalance -760 ml 1090 ml Medications Medications Current Medications Ondansetron HCl (Zofran Inj) 4 mg Q6H PRN IV NAUSEA AND/OR VOMITING; Start 03/27/18 at 20:00 Acetaminophen (Tylenol Tab) 650 mg Q6H PRN PO PAIN LEVEL 1-3 OR FEVER Last administered on 04/10/18 17:27; Admin Dose 650 MG; Start 03/27/18 at 20:00 Collagenase (Santyl) 1 applic DAILY TOP Last administered on 04/23/18 09:10; Admin Dose 1 APPLIC; Start 03/31/18 at 09:00 Mupirocin (Bactroban) 1 applic BID TOP Last administered on 04/23/18 09:10; Ad min Dose 1 APPLIC; Start 03/31/18 at 11:00 Morphine Sulfate (morphine) 2 mg Q4H PRN IV PAIN LEVEL 7-10 Last administered on 04/05/18at 21:59; Admin Dose 2 MG; Start 04/05/18 at 17:22 Ascorbic Acid (Vitamin C) 500 mg DAILY NGT Last administered on 04/23/18at 09:10; Admin Dose 500 MG; Start 04/09/18 at 14:00 Zinc Sulfate (Zinc Sulfate) 220 mg DAILY NGT Last administered on 04/23/18at 09:10; Admin Dose 220 MG; Start 04/10/18 at 09:00 Lansoprazole (Prevacid) 30 mg BID@0600,1800 PO Last administered on 04/23/18at 05:32; Admin Dose 30 MG; Start 04/14/18 at 18:00 Multivitamins (Multivitamin) 30 ml DAILY NGT Last administered on 04/23/18at 09:10; Admin Dose 30 ML; Start 04/16/18 at 16:30 Date/Time of Note Date/Time of Note DATE: 04/23/18 TIME: 13:36 DAVONTE MCMAHAN NP Apr 23, 2018 13:37
[2018-04-23 14:49] VITALS: BP 121/58; PULSE 92; RESP 18
--- NOTE | 2018-04-23 17:35 | PN ---
Date/Time of Note Date/Time of Note DATE: 04/23/18 TIME: 17:29 Assessment/Plan VTE Prophylaxis Risk score (from Ns)>0 risk: 7 SCD applied (from [facility] [place]): Yes Pharmacological prophylaxis: NA/contraindicated Pharm contraindication: bleeding Lines/Catheters [facility] Saline Lock Urinary Cath still in place: Yes Reason Cath still needed: urinary retention Assessment/Plan Hospital Course Patient hemodynamically stable, afebrile, patient is alert to name,otherwise confused, unable to sign consent for G-tube, no family. Poor p.o. intake patient is currently being fed through the NG tube. Patient is currently in the process to obtain legal guardian. Assessment/Plan -Anemia secondary to GI bleed. Dr. Gomes is following in GI consultation. Transfuse as needed, monitor hemoglobin and hematocrit. -Bleeding gastric ulcers, s/p hemostasis with placement of hemoclip during EGD by Dr Guallpa on 04/03/18. Continue Protonix. -S/p septic shock secondary to urinary tract infection, continue antibiotics per ID. Dr. Guzman is following in infection disease consultation. -Hypoxemic respiratory failure, resolving. Dr. Nam is following in pulmonology consultation. -Acute kidney injury, resolved. Dr. Senior following in nephrology consultation. -Hypernatremia, resolved. -MRSA of nares, continue Bactroban -Dementia -Multiple pressure ulcers, optimize nutrition, continue vitamin C and zinc sulfate, off loading. -Protein calorie malnutrition Further recommendations based on clinical course. Plan of care discussed with Dr. Kiser. Result Diagram: 04/21/18 0549 04/21/1849 Exam/Review of Systems Vital Signs Vitals Vital Signs Date Temp Pulse Resp B/P (MAP) Pulse Ox O2 O2 Flow FiO2 Time Delivery Rate 04/23/18 97.8 92 18 121/58 97 Room Air 14:49 (79) Intake and Output 04/22/18 04/22/18 04/23/18 1515:00 23:00 07:00 IntakeIntake Total 240 ml 1090 ml OutputOutput Total 1000 ml BalanceBalance -760 ml 1090 ml Exam Constitutional: alert, oriented, frail ENMT: nl external ears & nose, other (NGT) Respiratory: diminished breath sounds Cardiovascular: nl pulses Gastrointestinal: soft, non-tender Musculoskeletal: muscle weakness Extremities: normal pulses Medications Medications Current Medications Ondansetron HCl (Zofran Inj) 4 mg Q6H PRN IV NAUSEA AND/OR VOMITING; Start 03/27/18 at 20:00 Acetaminophen (Tylenol Tab) 650 mg Q6H PRN PO PAIN LEVEL 1-3 OR FEVER Last administered on 04/10/18 17:27; Admin Dose 650 MG; Start 03/27/18 at 20:00 Collagenase (Santyl) 1 applic DAILY TOP Last administered on 04/23/18 09:10; Admin Dose 1 APPLIC; Start 03/31/18 at 09:00 Mupirocin (Bactroban) 1 applic BID TOP Last administered on 04/23/18 09:10; Admin Dose 1 APPLIC; Start 03/31/18 at 11:00 Morphine Sulfate (morphine) 2 mg Q4H PRN IV PAIN LEVEL 7-10 Last administered on 04/05/18 21:59; Admin Dose 2 MG; Start 04/05/18 at 17:22 Ascorbic Acid (Vitamin C) 500 mg DAILY NGT Last administered on 04/23/18 09:10; Admin Dose 500 MG; Start 04/09/18 at 14:00 Zinc Sulfate (Zinc Sulfate) 220 mg DAILY NGT Last administered on 04/23/18 09:10; Admin Dose 220 MG; Start 04/10/18 at 09:00 Lansoprazole (Prevacid) 30 mg BID@0600,1800 PO Last administered on 04/23/18 05:32; Admin Dose 30 MG; Start 04/14/18 at 18:00 Multivitamins (Multivitamin) 30 ml DAILY NGT Last administered on 04/23/18 09:10; Admin Dose 30 ML; Start 04/16/18 at 16:30 JUDY CORNEJO Apr 23, 2018 17:35
[2018-04-23 19:59] VITALS: BP 126/57; PULSE 90; RESP 18
[2018-04-24 01:40] VITALS: BP 98/57; PULSE 81; RESP 18
[2018-04-24] MEDS: LANSOPRAZOLE 30 MG CAP PO SCH ×2 (05:34→17:05)
[2018-04-24 07:27] VITALS: BP 120/64; PULSE 84; RESP 16
[2018-04-24] MEDS: MUPIROCIN 2% 22 GM OINT TOP SCH ×2 (08:30→21:17)
[2018-04-24] MEDS: MULTIVITAMINS 30 ML CUP NGT SCH (08:30)
[2018-04-24] MEDS: BALSAM PERU/CASTOR OIL 60 GM TUBE TOP SCH ×2 (08:30→21:17)
[2018-04-24] MEDS: COLLAGENASE 5 GM (UD JAR) TOP SCH (08:30)
[2018-04-24] MEDS: ZINC SULFATE 220 MG CAP NGT SCH (08:30)
[2018-04-24] MEDS: ASCORBIC ACID 500 MG TAB NGT SCH (08:30)
--- NOTE | 2018-04-24 10:13 | CONS ---
Assessment/Plan Assessment/Plan Hospital Course 88 yo male presented with urosepsis and respiratory failure and coffee ground emesis 1. Upper GI bleed manifested through coffee ground emesis and melena -s/p EGD -resolved 2. Gastric ulcers, etiology of bleed 3. Hiatal hernia 4. Anemia secondary to gastric ulcer bleeding -stable but slowly trending down, no active GI bleeding noted, FOB neg 04/16 -monitor closely 5. E. coli, yeast (04/06) in urine, wbc trending down 6. Dysphagia -improving 7. Malnutrition. 8. Transaminitis -alk 742, alt 70, ast 101 -trending downward, US suggests cirrhosis 9. 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 Coarse slightly nodular liver suggesting cirrhosis. No focal hepatic masses. 2. Cholelithiasis. There is thickening of the gallbladder wall which is nonspe cific finding. Clinical correlation is recommended to exclude acute or chronic cholecystitis. 3. No biliary duct dilatation. 4. Small ascites and right pleural effusion. 5. Pancreas not visualized Plan: Pt states his family has all . He is oriented x 1 but did speak with patient about PEG and he agreed to it. Unsure if patient is able to consent himself. Smooth muscle titer 1:40, smooth muscle ab interp POS, Consider PEG, please let us know if primary would like to proceed with PEG. Monitor LFTs, liver profile in am. Monitor HH closely, no evidence of active GI bleeding, continue with PPI BID Aspiration precautions No NSAIDs Monitor HH and transfuse as necessary Monitor for acute GI bleeding Pt examined and plan of care discussed with Dr. Gomes Result Diagram: 04/21/18 0549 04/21/18 0549 Consultation Date/Type/Reason Admit Date/Time Mar 27, 2018 at 20:08 Initial Consult Date 04/02/18 Requesting Provider: DEENA BASILIO 24 HR Interval Summary Free Text/Dictation Pt stable. No GI bleeding noted. Tolerating tube feeds. Exam/Review of Systems Vital Signs Vitals Vital Signs Date Temp Pulse Resp B/P (MAP) Pulse Ox O2 O2 Flow FiO2 Time Delivery Rate 04/24/18 98.6 84 16 120/64 96 07:27 (82) 04/23/18 Room Air 14:49 Intake and Output 04/23/18 04/23/18 04/24/18 1515:00 23:00 07:00 IntakeIntake Total 500 ml 880 ml 820 ml OutputOutput Total 800 ml 900 ml 500 ml BalanceBalance -300 ml -20 ml 320 ml Exam Constitutional: alert, oriented Psych: no complaints Head: normocephalic Eyes: nl sclera, PERRL Gastrointestinal: soft, non-tender Neurological: other (A/O x 1) Medications Medications Current Medications Ondansetron HCl (Zofran Inj) 4 mg Q6H PRN IV NAUSEA AND/OR VOMITING; Start 03/27/18 at 20:00 Acetaminophen (Tylenol Tab) 650 mg Q6H PRN PO PAIN LEVEL 1-3 OR FEVER Last administered on 04/10/18 17:27; Admin Dose 650 MG; Start 03/27/18 at 20:00 Collagenase (Santyl) 1 applic DAILY TOP Last administered on 04/24/18 08:30; Admin Dose 1 APPLIC; Start 03/31/18 at 09:00 Mupirocin (Bactroban) 1 applic BID TOP Last administered on 04/24/18 08:30; Admin Dose 1 APPLIC; Start 03/31/18 at 11:00 Morphine Sulfate (morphine) 2 mg Q4H PRN IV PAIN LEVEL 7-10 Last administered on 04/05/18 21:59; Admin Dose 2 MG; Start 04/05/18 at 17:22 Ascorbic Acid (Vitamin C) 500 mg DAILY NGT Last administered on 04/24/18 08:30; Admin Dose 500 MG; Start 04/09/18 at 14:00 Zinc Sulfate (Zinc Sulfate) 220 mg DAILY NGT Last administered on 04/24/18 08:30; Admin Dose 220 MG; Start 04/10/18 at 09:00 Lansoprazole (Prevacid) 30 mg BID@0600,1800 PO Last administered on 04/24/18 05:34; Admin Dose 30 MG; Start 04/14/18 at 18:00 Multivitamins (Multivitamin) 30 ml DAILY NGT Last administered on 04/24/18 08:30; Admin Dose 30 ML; Start 04/16/18 at 16:30 Date/Time of Note Date/Time of Note DATE: 04/24/18 TIME: 10:11 SOREN DOVE Apr 24, 2018 10:13
--- NOTE | 2018-04-24 11:25 | CONS ---
Assessment/Plan Assessment/Plan Assessment/Plan 1. Acute kidney injury on CKD due to ATN + prerenal azotemia 2. acute blood loss anemia- 3. acute hyperkalemia- now resolved 4. acute hypoxemic resp failure 5. Sepsis due to acute UTI 6. Severe metabolic acidosis due to FLORES 7. Hypernatremia 8. Upper GI bleeding Plan: BUN/Cr 23/0.86, other electrolytes stable, BP stable w/o midodrine Renal US showed No evidence of hydronephrosis or mass, Nonobstructing intrarenal calculi are seen in the mid right kidney measuring 4 mm in 7 mm. 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.8 x 6.7 x 8.3 cm will follow up Result Diagram: 04/21/18 0549 04/21/18 0549 Consultation Date/Type/Reason Admit Date/Time Mar 27, 2018 at 20:08 Initial Consult Date 03/31/18 Type of Consult NEPHROLOGY Requesting Provider: DEENA BASILIO Exam/Review of Systems Vital Signs Vitals Vital Signs Date Temp Pulse Resp B/P (MAP) Pulse Ox O2 O2 Flow FiO2 Time Delivery Rate 04/24/18 98.6 84 16 120/64 96 07:27 (82) 04/23/18 Room Air 14:49 Intake and Output 04/23/18 04/23/18 04/24/18 1515:00 23:00 07:00 IntakeIntake Total 500 ml 880 ml 820 ml OutputOutput Total 800 ml 900 ml 500 ml BalanceBalance -300 ml -20 ml 320 ml Exam Constitutional: alert Psych: no complaints Head: normocephalic ENMT: nl external ears & nose Neck: supple, non-tender Respiratory: clear to auscultation, normal air movement, diminished breath sounds Cardiovascular: regular rate and rhythm, nl pulses Gastrointestinal: soft, non-tender Musculoskeletal: nl extremities to inspection Medications Medications Current Medications Ondansetron HCl (Zofran Inj) 4 mg Q6H PRN IV NAUSEA AND/OR VOMITING; Start 03/27/18 at 20:00 Acetaminophen (Tylenol Tab) 650 mg Q6H PRN PO PAIN LEVEL 1-3 OR FEVER Last administered on 04/10/18at 17:27; Admin Dose 650 MG; Start 03/27/18 at 20:00 Collagenase (Santyl) 1 applic DAILY TOP Last administered on 04/24/18 08:30; Admin Dose 1 APPLIC; Start 03/31/18 at 09:00 Mupirocin (Bactroban) 1 applic BID TOP Last administered on 04/24/18 08:30; Admin Dose 1 APPLIC; Start 03/31/18 at 11:00 Morphine Sulfate (morphine) 2 mg Q4H PRN IV PAIN LEVEL 7-10 Last administered on 04/05/18 21:59; Admin Dose 2 MG; Start 04/05/18 at 17:22 Ascorbic Acid (Vitamin C) 500 mg DAILY NGT Last administered on 04/24/18 08:30; Admin Dose 500 MG; Start 04/09/18 at 14:00 Zinc Sulfate (Zinc Sulfate) 220 mg DAILY NGT Last administered on 04/24/18 08:30; Admin Dose 220 MG; Start 04/10/18 at 09:00 Lansoprazole (Prevacid) 30 mg BID@0600,1800 PO Last administered on 04/24/18 05:34; Admin Dose 30 MG; Start 04/14/18 at 18:00 Multivitamins (Multivitamin) 30 ml DAILY NGT Last administered on 04/24/18at 0 8:30; Admin Dose 30 ML; Start 04/16/18 at 16:30 Date/Time of Note Date/Time of Note DATE: 04/24/18 TIME: 11:25 STEVEN BLANCO MD Apr 24, 2018 11:25
[2018-04-24 14:20] VITALS: BP 131/61; PULSE 99; RESP 18
--- NOTE | 2018-04-24 18:43 | PN ---
Date/Time of Note Date/Time of Note DATE: 04/24/18 TIME: 18:41 Assessment/Plan VTE Prophylaxis Risk score (from Ns)>0 risk: 5 SCD applied (from Ns): Yes Pharmacological prophylaxis: NA/contraindicated Pharm contraindication: bleeding Lines/Catheters IV Catheter Type (from Nrs): Saline Lock Urinary Cath still in place: Yes Reason Cath still needed: urinary retention Assessment/Plan Hospital Course Patient agreed to G-tube placement Assessment/Plan -Anemia secondary to GI bleed. Dr. Gomes is following in GI consultation. Transfuse as needed, monitor hemoglobin and hematocrit. -Bleeding gastric ulcers, s/p hemostasis with placement of hemoclip during EGD by Dr Guallpa on 04/03/18. Continue Protonix. -S/p septic shock secondary to urinary tract infection, continue antibiotics per ID. Dr. Guzman is following in infection disease consultation. -Hypoxemic respiratory failure, resolving. Dr. Nam is following in pulmonology consultation. -Acute kidney injury, resolved. Dr. Senior following in nephrology consultation. -Hypernatremia, resolved. -MRSA of nares, continue Bactroban -Dementia -Multiple pressure ulcers, optimize nutrition, continue vitamin C and zinc sulfate, off loading. -Protein calorie malnutrition Further recommendations based on clinical course. Plan of care discussed with Dr. Kiser. Result Diagram: 04/21/18 0549 04/21/18 0549 Exam/Review of Systems Exam Vitals Constitutional: alert, oriented, frail ENMT: nl external ears & nose, other (NGT) Respiratory: diminished breath sounds Cardiovascular: nl pulses Gastrointestinal: soft, non-tender Musculoskeletal: muscle weakness Extremities: normal pulses Vital Signs Date Temp Pulse Resp B/P (MAP) Pulse Ox O2 O2 Flow FiO2 Time Delivery Rate 04/24/18 98.6 99 18 131/61 95 Room Air 14:20 (84) Intake and Output 04/23/18 04/23/18 04/24/18 1515:00 23:00 07:00 IntakeIntake Total 500 ml 880 ml 820 ml OutputOutput Total 800 ml 900 ml 500 ml BalanceBalance -300 ml -20 ml 320 ml JUDY CORNEJO Apr 24, 2018 18:43
[2018-04-24 19:31] VITALS: BP 123/59; PULSE 84; RESP 18
[2018-04-25 01:30] VITALS: BP 116/79; PULSE 91; RESP 18
[2018-04-25] MEDS: LANSOPRAZOLE 30 MG CAP PO SCH ×2 (06:46→18:11)
[2018-04-25 07:40] VITALS: BP 123/60; PULSE 84; RESP 18
--- NOTE | 2018-04-25 07:47 | CONS ---
Assessment/Plan Assessment/Plan Hospital Course (Demo Recall) 88 yo male presented with urosepsis and respiratory failure and coffee ground emesis 1. Upper GI bleed manifested through coffee ground emesis and melena -s/p EGD -resolved 2. Gastric ulcers, etiology of bleed 3. Hiatal hernia 4. Anemia secondary to gastric ulcer bleeding -stable but slowly trending down, no active GI bleeding noted, FOB neg 04/16 -monitor closely 5. E. coli, yeast (04/06) in urine, wbc trending down 6. Dysphagia -improving 7. Malnutrition. 8. Transaminitis -alk 742, alt 70, ast 101 -trending downward, US suggests cirrhosis 9. 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 Coarse slightly nodular liver suggesting cirrhosis. No focal hepatic masses. 2. Cholelithiasis. There is thickening of the gallbladder wall which is nonspecific finding. Clinical correlation is recommended to exclude acute or chronic cholecystitis. 3. No biliary duct dilatation. 4. Small ascites and right pleural effusion. 5. Pancreas not visualized Plan: Per RN, Dr Parson states that pt can consent to PEG. home manager aware but doesn't feel pt can consent. Bioethics will meet again. We can do PEG on Saturday if proper consent received. Pt states his family has all . He is oriented x 1 but did speak with patient about PEG and he agreed to it. Unsure if patient is able to consent himself. Smooth muscle titer 1:40, smooth muscle ab interp POS, Consider PEG, please let us know if primary would like to proceed with PEG. Monitor LFTs, liver profile in am. Monitor HH closely, no evidence of active GI bleeding, continue with PPI BID Aspiration precautions No NSAIDs Monitor HH and transfuse as necessary Monitor for acute GI bleeding Pt examined and plan of care discussed with Dr. Gomes Consultation Date/Type/Reason Admit Date/Time Mar 27, 2018 at 20:08 Initial Consult Date 04/02/18 Requesting Provider: DEENA BASILIO Date/Time of Note DATE: 04/25/18 TIME: 07:46 24 HR Interval Summary Free Text/Dictation Tolerating tube feeds. HH stable. No evidence of GI bleed. Exam/Review of Systems Exam Vitals Vital Signs Date Temp Pulse Resp B/P (MAP) Pulse Ox O2 O2 Flow FiO2 Time Delivery Rate 04/25/18 97.6 84 18 123/60 97 07:40 (81) 04/24/18 Room Air 14:20 Intake and Output 04/24/18 04/24/18 04/25/18 1414:59 22:59 06:59 IntakeIntake Total 800 ml 1080 ml OutputOutput Total 900 ml 900 ml BalanceBalance -100 ml 180 ml Constitutional: alert, oriented (x 1) Eyes: nl sclera, PERRL Respiratory: clear to auscultation, diminished breath sounds Gastrointestinal: soft, non-tender Results Result Diagram: 04/21/18 0549 04/21/18 0549 SOREN DOVE Apr 25, 2018 07:47
[2018-04-25] MEDS: COLLAGENASE 5 GM (UD JAR) TOP SCH (08:24)
[2018-04-25] MEDS: MULTIVITAMINS 30 ML CUP NGT SCH (08:24)
[2018-04-25] MEDS: ASCORBIC ACID 500 MG TAB NGT SCH (08:24)
[2018-04-25] MEDS: BALSAM PERU/CASTOR OIL 60 GM TUBE TOP SCH ×2 (08:24→22:21)
[2018-04-25] MEDS: MUPIROCIN 2% 22 GM OINT TOP SCH ×2 (08:24→22:21)
[2018-04-25] MEDS: ZINC SULFATE 220 MG CAP NGT SCH (08:24)
--- NOTE | 2018-04-25 09:11 | CONS ---
Assessment/Plan Assessment/Plan Assessment/Plan (Daily) 1. Acute kidney injury on CKD due to ATN + prerenal azotemia 2. acute blood loss anemia- 3. acute hyperkalemia- now resolved 4. acute hypoxemic resp failure 5. Sepsis due to acute UTI 6. Severe metabolic acidosis due to FLORES 7. Hypernatremia 8. Upper GI bleeding Plan: BUN/Cr 23/0.86, other electrolytes stable, BP stable w/o midodrine Renal US showed No evidence of hydronephrosis or mass, Nonobstructing intrarenal calculi are seen in the mid right kidney measuring 4 mm in 7 mm. 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.8 x 6.7 x 8.3 cm will follow up Consultation Date/Type/Reason Admit Date/Time Mar 27, 2018 at 20:08 Initial Consult Date 03/31/18 Type of Consult NEPHROLOGY Requesting Provider: DEENA BASILIO Date/Time of Note DATE: 04/25/18 TIME: 09:11 24 HR Interval Summary Free Text/Dictation doing ok,BP stable, afebrile Exam/Review of Systems Exam Vitals Vital Signs Date Temp Pulse Resp B/P (MAP) Pulse Ox O2 O2 Flow FiO2 Time Delivery Rate 04/25/18 97.6 84 18 123/60 97 07:40 (81) 04/24/18 Room Air 14:20 Intake and Output 04/24/18 04/24/18 04/25/18 1515:00 23:00 07:00 IntakeIntake Total 800 ml 1080 ml OutputOutput Total 900 ml 900 ml BalanceBalance -100 ml 180 ml EXAM: Constitutional: alert Psych: no complaints Head: normocephalic ENMT: nl external ears & nose Neck: supple, non-tender Respiratory: clear to auscultation, normal air movement, diminished breath sounds Cardiovascular: regular rate and rhythm, nl pulses Gastrointestinal: soft, non-tender Musculoskeletal: nl extremities to inspection Results Result Diagram: 04/21/18 0549 04/21/18 0549 STEVEN BLANCO MD Apr 25, 2018 09:11
[2018-04-25 15:32] VITALS: BP 132/65; PULSE 86; RESP 18
--- NOTE | 2018-04-25 17:40 | PN ---
Date/Time of Note Date/Time of Note DATE: 04/25/18 TIME: 17:40 Assessment/Plan VTE Prophylaxis Risk score (from Ns)>0 risk: 5 SCD applied (from Ns): Yes SCD contraindicated: other Pharmacological prophylaxis: other Lines/Catheters IV Catheter Type (from Nrsg): Saline Lock Urinary Cath still in place: Yes Reason Cath still needed: urinary retention Assessment/Plan Result Diagram: 04/21/18 0549 04/21/18 0549 Exam/Review of Systems Exam Vitals Vital Signs Date Temp Pulse Resp B/P (MAP) Pulse Ox O2 O2 Flow FiO2 Time Delivery Rate 04/25/18 97.7 86 18 132/65 97 15:32 (87) 04/24/18 Room Air 14:20 Intake and Output 04/24/18 04/24/18 04/25/18 1515:00 23:00 07:00 IntakeIntake Total 800 ml 1080 ml OutputOutput Total 900 ml 900 ml BalanceBalance -100 ml 180 ml Constitutional: well developed, non-verbal Head: normocephalic Eyes: nl lids Neck: supple Respiratory: clear to auscultation Cardiovascular: nl pulses, other (s1s2) Gastrointestinal: soft Musculoskeletal: muscle weakness Extremities: normal pulses Neurological: confused Medications Medication Current Medications Ondansetron HCl (Zofran Inj) 4 mg Q6H PRN IV NAUSEA AND/OR VOMITING; Start 03/27/18 at 20:00 Acetaminophen (Tylenol Tab) 650 mg Q6H PRN PO PAIN LEVEL 1-3 OR FEVER Last administered on 04/10/18 17:27; Admin Dose 650 MG; Start 03/27/18 at 20:00 Collagenase (Santyl) 1 applic DAILY TOP Last administered on 04/25/18 08:24; Admin Dose 1 APPLIC; Start 03/31/18 at 09:00 Mupirocin (Bactroban) 1 applic BID TOP Last administered on 04/25/18 08:24; Admin Dose 1 APPLIC; Start 03/31/18 at 11:00 Morphine Sulfate (morphine) 2 mg Q4H PRN IV PAIN LEVEL 7-10 Last administered on 04/05/18 21:59; Admin Dose 2 MG; Start 04/05/18 at 17:22 Ascorbic Acid (Vitamin C) 500 mg DAILY NGT Last administered on 04/25/18 08:24; Admin Dose 500 MG; Start 04/09/18 at 14:00 Zinc Sulfate (Zinc Sulfate) 220 mg DAILY NGT Last administered on 04/25/18 08:24; Admin Dose 220 MG; Start 04/10/18 at 09:00 Lansoprazole (Prevacid) 30 mg BID@0600,1800 PO Last administered on 04/25/18 06:46; Admin Dose 30 MG; Start 04/14/18 at 18:00 Multivitamins (Multivitamin) 30 ml DAILY NGT Last administered on 04/25/18 08:24; Admin Dose 30 ML; Start 04/16/18 at 16:30 MICHAEL ARZATE Apr 25, 2018 17:40
[2018-04-25 19:36] VITALS: BP 102/65; PULSE 89; RESP 16
[2018-04-26 01:57] VITALS: BP 120/67; PULSE 87; RESP 16
[2018-04-26] MEDS: LANSOPRAZOLE 30 MG CAP PO SCH ×2 (05:56→18:46)
[2018-04-26 07:24] VITALS: BP 124/60; PULSE 84; RESP 18
[2018-04-26] MEDS: MULTIVITAMINS 30 ML CUP NGT SCH (09:46)
[2018-04-26] MEDS: ASCORBIC ACID 500 MG TAB NGT SCH (09:47)
[2018-04-26] MEDS: MUPIROCIN 2% 22 GM OINT TOP SCH ×2 (09:47→20:08)
[2018-04-26] MEDS: ZINC SULFATE 220 MG CAP NGT SCH (09:47)
[2018-04-26] MEDS: COLLAGENASE 5 GM (UD JAR) TOP SCH (09:47)
[2018-04-26] MEDS: BALSAM PERU/CASTOR OIL 60 GM TUBE TOP SCH ×2 (09:48→21:00)
--- NOTE | 2018-04-26 13:18 | PN ---
Date/Time of Note Date/Time of Note DATE: 04/26/18 TIME: 13:18 Assessment/Plan VTE Prophylaxis Risk score (from Ns)>0 risk: 7 SCD applied (from Ns): Yes Pharmacological prophylaxis: LMWH Lines/Catheters IV Catheter Type (from Nrsg): Saline Lock Urinary Cath still in place: Yes Reason Cath still needed: skin wounds contaminated by urine Assessment/Plan Hospital Course -Anemia secondary to GI bleed. Dr. Gomes is following in GI consultation. Transfuse as needed, monitor hemoglobin and hematocrit. -Bleeding gastric ulcers, s/p hemostasis with placement of hemoclip during EGD by Dr Guallpa on 04/03/18. Continue Protonix. -S/p septic shock secondary to urinary tract infection, continue antibiotics per ID. Dr. Guzman is following in infection disease consultation. -Hypoxemic respiratory failure, resolving. Dr. Nam is following in pulmonology consultation. -Acute kidney injury, resolved. Dr. Senior following in nephrology consultation. -Hypernatremia, resolved. -MRSA of nares, continue Bactroban -Dementia -Multiple pressure ulcers, optimize nutrition, continue vitamin C and zinc sulfate, off loading. -Protein calorie malnutrition Subjective 24 Hr Interval Summary Free Text/Dictation Patient comfortable, has no complaints Exam/Review of Systems Exam Vitals Vital Signs Date Temp Pulse Resp B/P (MAP) Pulse Ox O2 O2 Flow FiO2 Time Delivery Rate 04/26/18 97.5 84 18 124/60 97 Room Air 07:24 (81) Intake and Output 04/25/18 04/25/18 04/26/18 1414:59 22:59 06:59 IntakeIntake Total 820 ml 720 ml OutputOutput Total 800 ml 600 ml BalanceBalance 20 ml 120 ml Constitutional: well developed Head: normocephalic, atraumatic Neck: supple Respiratory: diminished breath sounds Cardiovascular: regular rate and rhythm Gastrointestinal: soft, non-tender Extremities: normal pulses Medications Medication Current Medications Ondansetron HCl (Zofran Inj) 4 mg Q6H PRN IV NAUSEA AND/OR VOMITING; Start 03/27/18 at 20:00 Acetaminophen (Tylenol Tab) 650 mg Q6H PRN PO PAIN LEVEL 1-3 OR FEVER Last administered on 04/10/18at 17:27; Admin Dose 650 MG; Start 03/27/18 at 20:00 Collagenase (Santyl) 1 applic DAILY TOP Last administered on 04/26/18 09:47; Admin Dose 1 APPLIC; Start 03/31/18 at 09:00 Mupirocin (Bactroban) 1 applic BID TOP Last administered on 04/26/18 09:47; Admin Dose 1 APPLIC; Start 03/31/18 at 11:00 Morphine Sulfate (morphine) 2 mg Q4H PRN IV PAIN LEVEL 7-10 Last administered on 04/05/18 21:59; Admin Dose 2 MG; Start 04/05/18 at 17:22 Ascorbic Acid (Vitamin C) 500 mg DAILY NGT Last administered on 04/26/18 09:47; Admin Dose 500 MG; Start 04/09/18 at 14:00 Zinc Sulfate (Zinc Sulfate) 220 mg DAILY NGT Last administered on 04/26/18 09:47; Admin Dose 220 MG; Start 04/10/18 at 09:00 Lansoprazole (Prevacid) 30 mg BID@0600,1800 PO Last administered on 04/26/18 05:56; Admin Dose 30 MG; Start 04/14/18 at 18:00 Multivitamins (Multivitamin) 30 ml DAILY NGT Last administered on 04/26/18 09:46; Admin Dose 30 ML; Start 04/16/18 at 16:30 DEENA BASILIO Apr 26, 2018 13:18
--- NOTE | 2018-04-26 18:04 | CONS ---
Assessment/Plan Assessment/Plan Assessment/Plan (Daily) 88 yo male presented with urosepsis and respiratory failure and coffee ground emesis 1. Upper GI bleed manifested through coffee ground emesis and melena -s/p EGD -resolved 2. Gastric ulcers, etiology of bleed 3. Hiatal hernia 4. Anemia secondary to gastric ulcer bleeding -stable but slowly trending down, no active GI bleeding noted, FOB neg 04/16 -monitor closely 5. E. coli, yeast (04/06) in urine, wbc trending down 6. Dysphagia -improving 7. Malnutrition. 8. Transaminitis -alk 742, alt 70, ast 101 -trending downward, US suggests cirrhosis 9. 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 Coarse slightly nodular liver suggesting cirrhosis. No focal hepatic masses. 2. Cholelithiasis. There is thickening of the gallbladder wall which is nonspecific finding. Clinical correlation is recommended to exclude acute or chronic cholecystitis. 3. No biliary duct dilatation. 4. Small ascites and right pleural effusion. 5. Pancreas not visualized Plan: Per RN, Dr Parson states that pt can consent to PEG. sugar plantation manager aware but doesn't feel pt can consent. Bioethics will meet again. We can do PEG on Saturday if proper consent received. Pt states his family has all . He is oriented x 1 but did speak with patient about PEG and he agreed to it. Unsure if patient is able to consent h imself. Smooth muscle titer 1:40, smooth muscle ab interp POS, Consider PEG, please let us know if primary would like to proceed with PEG. Monitor LFTs, liver profile in am. Monitor HH closely, no evidence of active GI bleeding, continue with PPI BID Aspiration precautions No NSAIDs Monitor HH and transfuse as necessary Monitor for acute GI bleeding Social or bioethics committee to get involved regarding consent for the PEG Consultation Date/Type/Reason Admit Date/Time Mar 27, 2018 at 20:08 Initial Consult Date 04/02/18 Requesting Provider: DEENA BASILIO Date/Time of Note DATE: 04/26/18 TIME: 18:03 24 HR Interval Summary Constitutional: disoriented Exam/Review of Systems Exam Vitals Vital Signs Date Temp Pulse Resp B/P (MAP) Pulse Ox O2 O2 Flow FiO2 Time Delivery Rate 04/26/18 97.5 84 18 124/60 97 Room Air 07:24 (81) Intake and Output 04/25/18 04/25/18 04/26/18 1414:59 22:59 06:59 IntakeIntake Total 820 ml 720 ml OutputOutput Total 800 ml 600 ml BalanceBalance 20 ml 120 ml Eyes: nl conjunctiva, EOMI, nl lids, nl sclera, PERRL Extremities: normal pulses Medications Medication Current Medications Ondansetron HCl (Zofran Inj) 4 mg Q6H PRN IV NAUSEA AND/OR VOMITING; Start 03/27/18 at 20:00 Acetaminophen (Tylenol Tab) 650 mg Q6H PRN PO PAIN LEVEL 1-3 OR FEVER Last administered on 04/10/18 17:27; Admin Dose 650 MG; Start 03/27/18 at 20:00 Collagenase (Santyl) 1 applic DAILY TOP Last administered on 04/26/18 09:47; Admin Dose 1 APPLIC; Start 03/31/18 at 09:00 Mupirocin (Bactroban) 1 applic BID TOP Last administered on 04/26/18 09:47; Admin Dose 1 APPLIC; Start 03/31/18 at 11:00 Morphine Sulfate (morphine) 2 mg Q4H PRN IV PAIN LEVEL 7-10 Last administered on 04/05/18 21:59; Admin Dose 2 MG; Start 04/05/18 at 17:22 Ascorbic Acid (Vitamin C) 500 mg DAILY NGT Last administered on 04/26/18 09:47; Admin Dose 500 MG; Start 04/09/18 at 14:00 Zinc Sulfate (Zinc Sulfate) 220 mg DAILY NGT Last administered on 04/26/18 09:47; Admin Dose 220 MG; Start 04/10/18 at 09:00 Lansoprazole (Prevacid) 30 mg BID@0600,1800 PO Last administered on 04/26/18 05:56; Admin Dose 30 MG; Start 04/14/18 at 18:00 Multivitamins (Multivitamin) 30 ml DAILY NGT Last administered on 04/26/18 09:46; Admin Dose 30 ML; Start 04/16/18 at 16:30 ATTILA UMANZOR MD Apr 26, 2018 18:04
[2018-04-26 20:05] VITALS: BP 109/57; PULSE 95; RESP 18
--- NOTE | 2018-04-26 22:41 | CONS ---
Assessment/Plan Assessment/Plan Assessment/Plan (Daily) 1. Acute kidney injury on CKD due to ATN + prerenal azotemia 2. acute blood loss anemia- 3. acute hyperkalemia- now resolved 4. acute hypoxemic resp failure 5. Sepsis due to acute UTI 6. Severe metabolic acidosis due to FLORES 7. Hypernatremia 8. Upper GI bleeding Plan: BUN/Cr 23/0.86; no new labs UO 1400 ml/24 hrs other electrolytes stable BP stable w/o midodrine Renal US showed No evidence of hydronephrosis or mass, Nonobstructing intrarenal calculi are seen in the mid right kidney measuring 4 mm in 7 mm. 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.8 x 6.7 x 8.3 cm will follow up Patient seen in collaboration with Dr Senior. Dw staff Consultation Date/Type/Reason Admit Date/Time Mar 27, 2018 at 8:08 pm Initial Consult Date 04/02/18 Type of Consult nephrology Reason for Consultation FLORES Requesting Provider: DEENA BASILIO Date/Time of Note DATE: 04/26/18 TIME: 22:41 24 HR Interval Summary Constitutional: requiring IVF Detailed Summary Eyes: no complaints ENT: no complaints Respiratory: no complaints Cardiovascular: no complaints Gastrointestinal: no complaints Musculoskeletal: other (weakness) Exam/Review of Systems Exam Vitals Vital Signs Date Temp Pulse Resp B/P (MAP) Pulse Ox O2 O2 Flow FiO2 Time Delivery Rate 04/26/18 97.9 95 18 109/57 97 20:05 (74) 04/26/18 Room Air 07:24 Intake and Output 04/25/18 04/25/18 04/26/18 1414:59 22:59 06:59 IntakeIntake Total 820 ml 720 ml OutputOutput Total 800 ml 600 ml BalanceBalance 20 ml 120 ml Constitutional: alert, well developed Psych: nl mood/affect Eyes: EOMI, nl lids, nl sclera ENMT: nl external ears & nose Neck: non-tender Respiratory: diminished breath sounds (bilaterally) Cardiovascular: nl pulses, other (s1s2) Gastrointestinal: soft, non-tender, other (NGT intact) Musculoskeletal: muscle weakness, range of motion Extremities: normal pulses Neurological: nl speech, other (alert/responsive) Medications Medication Current Medications Ondansetron HCl (Zofran Inj) 4 mg Q6H PRN IV NAUSEA AND/OR VOMITING; Start 03/27/18 at 20:00 Acetaminophen (Tylenol Tab) 650 mg Q6H PRN PO PAIN LEVEL 1-3 OR FEVER Last administered on 04/10/18 17:27; Admin Dose 650 MG; Start 03/27/18 at 20:00 Collagenase (Santyl) 1 applic DAILY TOP Last administered on 04/26/18 09:47; Admin Dose 1 APPLIC; Start 03/31/18 at 09:00 Mupirocin (Bactroban) 1 applic BID TOP Last administered on 04/26/18 20:08; Admin Dose 1 APPLIC; Start 03/31/18 at 11:00 Morphine Sulfate (morphine) 2 mg Q4H PRN IV PAIN LEVEL 7-10 Last administered on 04/05/18 21:59; Admin Dose 2 MG; Start 04/05/18 at 17:22 Ascorbic Acid (Vitamin C) 500 mg DAILY NGT Last administered on 04/26/18 09:47; Admin Dose 500 MG; Start 04/09/18 at 14:00 Zinc Sulfate (Zinc Sulfate) 220 mg DAILY NGT Last administered on 04/26/18 09:47; Admin Dose 220 MG; Start 04/10/18 at 09:00 Lansoprazole (Prevacid) 30 mg BID@0600,1800 PO Last administered on 04/26/18 18:46; Admin Dose 30 MG; Start 04/14/18 at 18:00 Multivitamins (Multivitamin) 30 ml DAILY NGT Last administered on 04/26/18 09:46; Admin Dose 30 ML; Start 04/16/18 at 16:30 MICHAEL ARZATE Apr 26, 2018 22:41
[2018-04-27 02:16] VITALS: BP 129/60; PULSE 89; RESP 18
[2018-04-27] MEDS: LANSOPRAZOLE 30 MG CAP PO SCH ×2 (05:55→18:23)
[2018-04-27 07:56] VITALS: BP 133/62; PULSE 92; RESP 18
--- NOTE | 2018-04-27 08:16 | CONS ---
Assessment/Plan Assessment/Plan Assessment/Plan (Daily) 1. Acute kidney injury on CKD due to ATN + prerenal azotemia 2. acute blood loss anemia- 3. acute hyperkalemia- now resolved 4. acute hypoxemic resp failure 5. Sepsis due to acute UTI 6. Severe metabolic acidosis due to FLORES 7. Hypernatremia 8. Upper GI bleeding Plan: BUN/Cr 23/0.86; no new labs UO 1550 ml/24 hrs other electrolytes stable BP stable w/o midodrine Renal US showed No evidence of hydronephrosis or mass, Nonobstructing intrarenal calculi are seen in the mid right kidney measuring 4 mm in 7 mm. 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.8 x 6.7 x 8.3 cm will follow up Patient seen in collaboration with Dr Senior. Dw staff Consultation Date/Type/Reason Admit Date/Time Mar 27, 2018 at 20:08 Initial Consult Date 04/02/18 Type of Consult nephrology Requesting Provider: DEENA BASILIO Date/Time of Note DATE: 04/27/18 TIME: 08:10 24 HR Interval Summary Free Text/Dictation nad afebrile no new events reported last night Constitutional: requiring O2 Detailed Summary ENT: no complaints Respiratory: no complaints Cardiovascular: no complaints Gastrointestinal: no complaints Genitourinary: no complaints Musculoskeletal: other (generelized weakness) Exam/Review of Systems Exam Vitals Vital Signs Date Temp Pulse Resp B/P (MAP) Pulse Ox O2 O2 Flow FiO2 Time Delivery Rate 04/27/18 98.0 92 18 133/62 97 Room Air 07:56 (85) Intake and Output 04/26/18 04/26/18 04/27/18 1515:00 23:00 07:00 IntakeIntake Total 860 ml OutputOutput Total 550 ml 1000 ml BalanceBalance 310 ml -1000 ml Constitutional: alert, well developed Psych: nl mood/affect Head: atraumatic Eyes: EOMI, nl lids ENMT: nl external ears & nose Neck: non-tender Respiratory: diminished breath sounds (bilaterally) Gastrointestinal: soft, non-tender, other (NGT intact) Musculoskeletal: muscle weakness, range of motion Extremities: normal pulses Neurological: other (alert/awake) Medications Medication Current Medications Ondansetron HCl (Zofran Inj) 4 mg Q6H PRN IV NAUSEA AND/OR VOMITING; Start 03/27/18 at 20:00 Acetaminophen (Tylenol Tab) 650 mg Q6H PRN PO PAIN LEVEL 1-3 OR FEVER Last administered on 04/10/18 17:27; Admin Dose 650 MG; Start 03/27/18 at 20:00 Collagenase (Santyl) 1 applic DAILY TOP Last administered on 04/26/18 09:47; Admin Dose 1 APPLIC; Start 03/31/18 at 09:00 Mupirocin (Bactroban) 1 applic BID TOP Last administered on 04/26/18 20:08; Admin Dose 1 APPLIC; Start 03/31/18 at 11:00 Morphine Sulfate (morphine) 2 mg Q4H PRN IV PAIN LEVEL 7-10 Last administered on 04/05/18 21:59; Admin Dose 2 MG; Start 04/05/18 at 17:22 Ascorbic Acid (Vitamin C) 500 mg DAILY NGT Last administered on 04/26/18 09:47 ; Admin Dose 500 MG; Start 04/09/18 at 14:00 Zinc Sulfate (Zinc Sulfate) 220 mg DAILY NGT Last administered on 04/26/18 09:47; Admin Dose 220 MG; Start 04/10/18 at 09:00 Lansoprazole (Prevacid) 30 mg BID@0600,1800 PO Last administered on 04/27/18 05:55; Admin Dose 30 MG; Start 04/14/18 at 18:00 Multivitamins (Multivitamin) 30 ml DAILY NGT Last administered on 04/26/18 09:46; Admin Dose 30 ML; Start 04/16/18 at 16:30 MICHAEL ARZATE Apr 27, 2018 08:16
[2018-04-27] MEDS: ZINC SULFATE 220 MG CAP NGT SCH (09:05)
[2018-04-27] MEDS: ASCORBIC ACID 500 MG TAB NGT SCH (09:05)
[2018-04-27] MEDS: MULTIVITAMINS 30 ML CUP NGT SCH (09:05)
[2018-04-27] MEDS: BALSAM PERU/CASTOR OIL 60 GM TUBE TOP SCH ×2 (09:06→21:05)
[2018-04-27] MEDS: COLLAGENASE 5 GM (UD JAR) TOP SCH (09:06)
[2018-04-27] MEDS: MUPIROCIN 2% 22 GM OINT TOP SCH ×2 (09:07→20:10)
--- NOTE | 2018-04-27 13:39 | PN ---
Date/Time of Note Date/Time of Note DATE: 04/27/18 TIME: 13:39 Assessment/Plan VTE Prophylaxis Risk score (from Nsg)>0 risk: 4 SCD applied (from Nsg): Yes Pharmacological prophylaxis: LMWH Lines/Catheters IV Catheter Type (from Nrsg): Saline Lock Urinary Cath still in place: Yes Reason Cath still needed: skin wounds contaminated by urine Assessment/Plan Hospital Course -Anemia secondary to GI bleed. Dr. Gomes is following in GI consultation. Transfuse as needed, monitor hemoglobin and hematocrit. -Bleeding gastric ulcers, s/p hemostasis with placement of hemoclip during EGD by Dr Guallpa on 04/03/18. Continue Protonix. -S/p septic shock secondary to urinary tract infection, continue antibiotics per ID. Dr. Guzman is following in infection disease consultation. -Hypoxemic respiratory failure, resolving. Dr. Nam is following in pulmonology consultation. -Acute kidney injury, resolved. Dr. Senior following in nephrology consultation. -Hypernatremia, resolved. -MRSA of nares, continue Bactroban -Dementia -Multiple pressure ulcers, optimize nutrition, continue vitamin C and zinc sulfate, off loading. -Protein calorie malnutrition Result Diagram: 04/27/18 0847 04/27/18 0847 Results 24hrs Laboratory Tests Test 04/27/18 08:47 White Blood Count 21.7 #H Red Blood Count 3.14 L Hemoglobin 8.9 L Hematocrit 28.8 L Mean Corpuscular Volume 91.7 Mean Corpuscular Hemoglobin 28.3 L Mean Corpuscular Hemoglobin Concent 30.9 L Red Cell Distribution Width 16.5 H Platelet Count 400 Mean Platelet Volume 11.3 H Immature Granulocytes % 1.200 H Neutrophils % 84.8 H Lymphocytes % 8.5 L Monocytes % 5.0 Eosinophils % 0.2 Basophils % 0.3 Nucleated Red Blood Cells % 0.0 Immature Granulocytes # 0.260 H Neutrophils # 18.4 H Lymphocytes # 1.9 Monocytes # 1.1 H Eosinophils # 0.1 Basophils # 0.1 Nucleated Red Blood Cells # 0.0 Sodium Level 141 Potassium Level 4.7 Chloride Level 100 Carbon Dioxide Level 33 H Anion Gap 8 Blood Urea Nitrogen 29 H Creatinine 0.87 Est Glomerular Filtrat Rate mL/min Glucose Level 126 Calcium Level 8.6 Subjective 24 Hr Interval Summary Free Text/Dictation Patient has no complaints Exam/Review of Systems Exam Vitals Vital Signs Date Temp Pulse Resp B/P (MAP) Pulse Ox O2 O2 Flow FiO2 Time Delivery Rate 04/27/18 98.0 92 18 133/62 97 Room Air 07:56 (85) Intake and Output 04/26/18 04/26/18 04/27/18 1515:00 23:00 07:00 IntakeIntake Total 860 ml OutputOutput Total 550 ml 1000 ml BalanceBalance 310 ml -1000 ml Constitutional: well developed Head: normocephalic, atraumatic Neck: supple Respiratory: clear to auscultation Cardiovascular: regular rate and rhythm Gastrointestinal: soft, non-tender Extremities: normal pulses Results Results 24hrs Laboratory Tests Test 04/27/18 08:47 White Blood Count 21.7 #H Red Blood Count 3.14 L Hemoglobin 8.9 L Hematocrit 28.8 L Mean Corpuscular Volume 91.7 Mean Corpuscular Hemoglobin 28.3 L Mean Corpuscular Hemoglobin Concent 30.9 L Red Cell Distribution Width 16.5 H Platelet Count 400 Mean Platelet Volume 11.3 H Immature Granulocytes % 1.200 H Neutrophils % 84.8 H Lymphocytes % 8.5 L Monocytes % 5.0 Eosinophils % 0.2 Basophils % 0.3 Nucleated Red Blood Cells % 0.0 Immature Granulocytes # 0.260 H Neutrophils # 18.4 H Lymphocytes # 1.9 Monocytes # 1.1 H Eosinophils # 0.1 Basophils # 0.1 Nucleated Red Blood Cells # 0.0 Sodium Level 141 Potassium Level 4.7 Chloride Level 100 Carbon Dioxide Level 33 H Anion Gap 8 Blood Urea Nitrogen 29 H Creatinine 0.87 Est Glomerular Filtrat Rate mL/min Glucose Level 126 Calcium Level 8.6 Medications Medication Current Medications Ondansetron HCl (Zofran Inj) 4 mg Q6H PRN IV NAUSEA AND/OR VOMITING; Start 03/27/18 at 20:00 Acetaminophen (Tylenol Tab) 650 mg Q6H PRN PO PAIN LEVEL 1-3 OR FEVER Last administered on 04/10/18at 17:27; Admin Dose 650 MG; Start 03/27/18 at 20:00 Collagenase (Santyl) 1 applic DAILY TOP Last administered on 04/27/18at 09:06; Admin Dose 1 APPLIC; Start 03/31/18 at 09:00 Mupirocin (Bactroban) 1 applic BID TOP Last administered on 04/27/18 09:07; Admin Dose 1 APPLIC; Start 03/31/18 at 11:00 Morphine Sulfate (morphine) 2 mg Q4H PRN IV PAIN LEVEL 7-10 Last administered on 04/05/18 21:59; Admin Dose 2 MG; Start 04/05/18 at 17:22 Ascorbic Acid (Vitamin C) 500 mg DAILY NGT Last administered on 04/27/18 09:05; Admin Dose 500 MG; Start 04/09/18 at 14:00 Zinc Sulfate (Zinc Sulfate) 220 mg DAILY NGT Last administered on 04/27/18 09:05; Admin Dose 220 MG; Start 04/10/18 at 09:00 Lansoprazole (Prevacid) 30 mg BID@0600,1800 PO Last administered on 04/27/18 05:55; Admin Dose 30 MG; Start 04/14/18 at 18:00 Multivitamins (Multivitamin) 30 ml DAILY NGT Last administered on 04/27/18 09:05; Admin Dose 30 ML; Start 04/16/18 at 16:30 DEENA BASILIO Apr 27, 2018 13:39
[2018-04-27 14:00] VITALS: BP 126/71; PULSE 82; RESP 18
--- NOTE | 2018-04-27 14:30 | CONS ---
Assessment/Plan Assessment/Plan Hospital Course (Demo Recall) No acute events per report patient looks comfortable afebrile in no distress WBC today 21.7 neutrophils 84.8 BUN 29 creatinine 0.87 Indwelling: NG tube Honeycutt Physical examination: Well-developed chronically ill-appearing wasted elderly man who is in no distress. Head atraumatic normocephalic sclera nonicteric. Neck is supple chest rise symmetrical breath sounds diminished bases. Heart: S1-S2 abdomen distended tender on palpation extremities without cyanosis Assessment: 1. Leukocytosis, concern for nosocomial infection, possible aspiration versus UTI 2. Status post GI bleeding===> EGD with Hemoclip placement 3. S/p E. coli ESBL UTI/ yeast UTI 4. History MRSA nares colonization 5. Dysphagia 6. Dementia Plan: Clinically stable, afebrile, had been off antibiotics, will order chest x-ray and urine culture, start fluconazole, ask staff to change Honeycutt catheter and follow labs in a.m. Consultation Date/Type/Reason Admit Date/Time Mar 27, 2018 at 20:08 Initial Consult Date 04/02/18 Type of Consult ID Requesting Provider: DEENA BASILIO Date/Time of Note DATE: 04/27/18 TIME: 14:28 Exam/Review of Systems Exam Vitals Vital Signs Date Temp Pulse Resp B/P (MAP) Pulse Ox O2 O2 Flow FiO2 Time Delivery Rate 04/27/18 98.0 92 18 133/62 97 Room Air 07:56 (85) Intake and Output 04/26/18 04/26/18 04/27/18 1515:00 23:00 07:00 IntakeIntake Total 860 ml OutputOutput Total 550 ml 1000 ml BalanceBalance 310 ml -1000 ml Results Result Diagram: 04/27/18 0847 04/27/18 0847 Results 24hrs Laboratory Tests Test 04/27/18 08:47 White Blood Count 21.7 #H Red Blood Count 3.14 L Hemoglobin 8.9 L Hematocrit 28.8 L Mean Corpuscular Volume 91.7 Mean Corpuscular Hemoglobin 28.3 L Mean Corpuscular Hemoglobin Concent 30.9 L Red Cell Distribution Width 16.5 H Platelet Count 400 Mean Platelet Volume 11.3 H Immature Granulocytes % 1.200 H Neutrophils % 84.8 H Lymphocytes % 8.5 L Monocytes % 5.0 Eosinophils % 0.2 Basophils % 0.3 Nucleated Red Blood Cells % 0.0 Immature Granulocytes # 0.260 H Neutrophils # 18.4 H Lymphocytes # 1.9 Monocytes # 1.1 H Eosinophils # 0.1 Basophils # 0.1 Nucleated Red Blood Cells # 0.0 Sodium Level 141 Potassium Level 4.7 Chloride Level 100 Carbon Dioxide Level 33 H Anion Gap 8 Blood Urea Nitrogen 29 H Creatinine 0.87 Est Glomerular Filtrat Rate mL/min Glucose Level 126 Calcium Level 8.6 Medications Medication Current Medications Ondansetron HCl (Zofran Inj) 4 mg Q6H PRN IV NAUSEA AND/OR VOMITING; Start 03/27/18 at 20:00 Acetaminophen (Tylenol Tab) 650 mg Q6H PRN PO PAIN LEVEL 1-3 OR FEVER Last administered on 04/10/18 17:27; Admin Dose 650 MG; Start 03/27/18 at 20:00 Collagenase (Santyl) 1 applic DAILY TOP Last administered on 04/27/18 09:06; Admin Dose 1 APPLIC; Start 03/31/18 at 09:00 Mupirocin (Bactroban) 1 applic BID TOP Last administered on 04/27/18 09:07; Admin Dose 1 APPLIC; Start 03/31/18 at 11:00 Morphine Sulfate (morphine) 2 mg Q4H PRN IV PAIN LEVEL 7-10 Last administered on 04/05/18 21:59; Admin Dose 2 MG; Start 04/05/18 at 17:22 Ascorbic Acid (Vitamin C) 500 mg DAILY NGT Last administered on 04/27/18 09:05; Admin Dose 500 MG; Start 04/09/18 at 14:00 Zinc Sulfate (Zinc Sulfate) 220 mg DAILY NGT Last administered on 04/27/18 09:05; Admin Dose 220 MG; Start 04/10/18 at 09:00 Lansoprazole (Prevacid) 30 mg BID@0600,1800 PO Last administered on 04/27/18 05:55; Admin Dose 30 MG; Start 04/14/18 at 18:00 Multivitamins (Multivitamin) 30 ml DAILY NGT Last administered on 04/27/18 09:05; Admin Dose 30 ML; Start 04/16/18 at 16:30 DAVONTE MCMAHAN NP Apr 27, 2018 14:30
--- NOTE | 2018-04-27 14:44 | CONS ---
DATE OF ADMISSION: 03/27/2018 DATE OF CONSULTATION: TYPE OF CONSULTATION: Gastroenterology. HISTORY OF PRESENT ILLNESS: The patient is an 88-year-old male with a history of cirrhosis of liver, upper GI bleeding. Endoscopic clipping also was done and now, the patient is suffering from dysphag ia. His p.o. intake is extremity poor. OBJECTIVE: GENERAL: He is lethargic. ABDOMEN: Benign. He has got an NG tube, tolerating feeding. LUNGS: Clear. EXTREMITIES: No edema. CENTRAL NERVOUS SYSTEM: Does not communicate. LABORATORY DATA: WBC is 21,000, hematocrit is 28. BNP is grossly within normal limits. Alkaline ph osphatase is elevated at 424. IMPRESSION: 1. Cirrhosis of liver. Etiology is unclear. 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 2. Dysphagia. 3. Leukocytosis. This is a new finding. The patient should be kept n.p.o. and not to be given oral feeding. Might be aspirating. 4. History of gastrointestinal bleeding. 5. Anemia. 6. Still in a confusional state. PLAN: At this point is to keep the patient in n.p.o., antibiotic. Once we get appropriate consent, we will proceed with EGD. Continue PPI. Dictated By: ATTILA SALTER/NTS Conf#: [id number] DID#: [id number] CC: DEENA BASILIO MD; LESLYE CROWDER MD;*EndCC*
[2018-04-27] MEDS: FLUCONAZOLE 100 MG TAB PO SCH (16:00)
[2018-04-27 19:17] VITALS: BP 120/56; PULSE 90; RESP 18
[2018-04-28 01:08] VITALS: BP 127/60; PULSE 87; RESP 18
[2018-04-28] MEDS: LANSOPRAZOLE 30 MG CAP PO SCH ×2 (05:34→18:22)
[2018-04-28 07:25] VITALS: BP 129/62; PULSE 69; RESP 16
[2018-04-28] MEDS: FLUCONAZOLE 100 MG TAB PO SCH (09:51)
[2018-04-28] MEDS: ASCORBIC ACID 500 MG TAB NGT SCH (09:51)
[2018-04-28] MEDS: MUPIROCIN 2% 22 GM OINT TOP SCH ×2 (09:51→22:11)
[2018-04-28] MEDS: BALSAM PERU/CASTOR OIL 60 GM TUBE TOP SCH ×2 (09:51→22:11)
[2018-04-28] MEDS: COLLAGENASE 5 GM (UD JAR) TOP SCH (09:51)
[2018-04-28] MEDS: MULTIVITAMINS 30 ML CUP NGT SCH (09:51)
[2018-04-28] MEDS: ZINC SULFATE 220 MG CAP NGT SCH (09:51)
[2018-04-28 13:42] VITALS: BP 123/60; PULSE 84; RESP 16
--- NOTE | 2018-04-28 14:10 | CONS ---
Assessment/Plan Assessment/Plan Hospital Course (Demo Recall) No acute events overnight per report patient is awake responsive looks comfortable no fevers overnight WBC 12.8 platelets 385 neutrophils 70.1 BUN 29 creatinine 0.84 Microbiology: Repeat urine culture growing gram-negative rods Chest x-ray revealed mild atelectasis at the lung bases. NG tube in the stomach Antimicrobials: Fluconazole Indwelling: NG tube Honeycutt Physical examination: Well-developed chronically ill-appearing wasted elderly man who is in no distress. Head atraumatic normocephalic sclera nonicteric. Neck is supple chest rise symmetrical breath sounds diminished bases. Heart: S1-S2 abdomen distended tender on palpation extremities without cyanosis Assessment: 1. Leukocytosis, concern for nosocomial infection, possible aspiration versus UTI 2. Status post GI bleeding===> EGD with Hemoclip placement 3. S/p E. coli ESBL UTI/ yeast UTI 4. History MRSA nares colonization 5. Dysphagia 6. Dementia Plan: Clinically stable, start meropenem, await for final cultures, pending PEG Consultation Date/Type/Reason Admit Date/Time Mar 27, 2018 at 20:08 Initial Consult Date 04/02/18 Type of Consult ID Requesting Provider: DEENA BASILIO Date/Time of Note DATE: 04/28/18 TIME: 14:09 Exam/Review of Systems Exam Vitals Vital Signs Date Temp Pulse Resp B/P (MAP) Pulse Ox O2 O2 Flow FiO2 Time Delivery Rate 04/28/18 98.4 84 16 123/60 96 13:42 (81) 04/27/18 Room Air 14:00 Intake and Output 04/27/18 04/27/18 04/28/18 1515:00 23:00 07:00 OutputOutput Total 600 ml 500 ml BalanceBalance -600 ml -500 ml Results Result Diagram: 04/28/18 0447 04/28/18 0447 Results 24hrs Laboratory Tests Test 04/28/18 04:47 White Blood Count 12.8 #H Red Blood Count 2.97 L Hemoglobin 8.4 L Hematocrit 27.0 L Mean Corpuscular Volume 90.9 Mean Corpuscular Hemoglobin 28.3 L Mean Corpuscular Hemoglobin Concent 31.1 L Red Cell Distribution Width 16.6 H Platelet Count 385 Mean Platelet Volume 11.4 H Immature Granulocytes % 1.800 H Neutrophils % 70.1 Lymphocytes % 17.2 Monocytes % 7.4 Eosinophils % 3.0 Basophils % 0.5 Nucleated Red Blood Cells % 0.0 Immature Granulocytes # 0.230 H Neutrophils # 9.0 H Lymphocytes # 2.2 Monocytes # 0.9 Eosinophils # 0.4 Basophils # 0.1 Nucleated Red Blood Cells # 0.0 Sodium Level 141 Potassium Level 4.2 Chloride Level 103 Carbon Dioxide Level 32 H Anion Gap 6 Blood Urea Nitrogen 29 H Creatinine 0.84 Est Glomerular Filtrat Rate mL/min Glucose Level 125 Calcium Level 8.7 Medications Medication Current Medications Ondansetron HCl (Zofran Inj) 4 mg Q6H PRN IV NAUSEA AND/OR VOMITING; Start 03/27/18 at 20:00 Acetaminophen (Tylenol Tab) 650 mg Q6H PRN PO PAIN LEVEL 1-3 OR FEVER Last administered on 04/10/18 17:27; Admin Dose 650 MG; Start 03/27/18 at 20:00 Collagenase (Santyl) 1 applic DAILY TOP Last administered on 04/28/18 09:51; Admin Dose 1 APPLIC; Start 03/31/18 at 09:00 Mupirocin (Bactroban) 1 applic BID TOP Last administered on 04/28/18 09:51; Admin Dose 1 APPLIC; Start 03/31/18 at 11:00 Morphine Sulfate (morphine) 2 mg Q4H PRN IV PAIN LEVEL 7-10 Last administered on 04/05/18 21:59; Admin Dose 2 MG; Start 04/05/18 at 17:22 Ascorbic Acid (Vitamin C) 500 mg DAILY NGT Last administered on 04/28/18 09:51; Admin Dose 500 MG; Start 04/09/18 at 14:00 Zinc Sulfate (Zinc Sulfate) 220 mg DAILY NGT Last administered on 04/28/18 09:51; Admin Dose 220 MG; Start 04/10/18 at 09:00 Lansoprazole (Prevacid) 30 mg BID@0600,1800 PO Last administered on 04/28/18 05:34; Admin Dose 30 MG; Start 04/14/18 at 18:00 Multivitamins (Multivitamin) 30 ml DAILY NGT Last administered on 04/28/18 09:51; Admin Dose 30 ML; Start 04/16/18 at 16:30 Fluconazole (Diflucan) 100 mg DAILY PO Last administered on 04/28/18at 09:51; Admin Dose 100 MG; Start 04/27/18 at 16:00 DAVONTE MCMAHAN NP Apr 28, 2018 14:10
[2018-04-28] MEDS: MEROPENEM 500MG/50 ML (PMX) 50 ML IVPB SCH (16:07)
--- NOTE | 2018-04-28 17:17 | CONS ---
Assessment/Plan Assessment/Plan Assessment/Plan (Daily) 1. Acute kidney injury on CKD due to ATN + prerenal azotemia 2. acute blood loss anemia- 3. acute hyperkalemia- now resolved 4. acute hypoxemic resp failure 5. Sepsis due to acute UTI 6. Severe metabolic acidosis due to FLORES 7. Hypernatremia 8. Upper GI bleeding Plan: BUN/Cr 29/0.84, other electrolytes stable, BP stable w/o midodrine, WBC improved from 21 to 12.8 Renal US showed No evidence of hydronephrosis or mass, Nonobstructing intrarenal calculi are seen in the mid right kidney measuring 4 mm in 7 mm. 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.8 x 6.7 x 8.3 cm will follow up Consultation Date/Type/Reason Admit Date/Time Mar 27, 2018 at 20:08 Initial Consult Date 03/31/18 Type of Consult NEPHROLOGY Requesting Provider: DEENA BASILIO Date/Time of Note DATE: 04/28/18 TIME: 17:17 Exam/Review of Systems Exam Vitals Vital Signs Date Temp Pulse Resp B/P (MAP) Pulse Ox O2 O2 Flow FiO2 Time Delivery Rate 04/28/18 98.4 84 16 123/60 96 13:42 (81) 04/27/18 Room Air 14:00 Intake and Output 04/27/18 04/27/18 04/28/18 1515:00 23:00 07:00 OutputOutput Total 600 ml 500 ml BalanceBalance -600 ml -500 ml Exam Constitutional: alert Psych: no complaints Head: normocephalic ENMT: nl external ears & nose Neck: supple, non-tender Respiratory: clear to auscultation, normal air movement, diminished breath s ounds Cardiovascular: regular rate and rhythm, nl pulses Gastrointestinal: soft, non-tender Musculoskeletal: nl extremities to inspection Results Result Diagram: 04/28/187 04/28/187 Results 24hrs Laboratory Tests Test 04/28/18 04:47 White Blood Count 12.8 #H Red Blood Count 2.97 L Hemoglobin 8.4 L Hematocrit 27.0 L Mean Corpuscular Volume 90.9 Mean Corpuscular Hemoglobin 28.3 L Mean Corpuscular Hemoglobin Concent 31.1 L Red Cell Distribution Width 16.6 H Platelet Count 385 Mean Platelet Volume 11.4 H Immature Granulocytes % 1.800 H Neutrophils % 70.1 Lymphocytes % 17.2 Monocytes % 7.4 Eosinophils % 3.0 Basophils % 0.5 Nucleated Red Blood Cells % 0.0 Immature Granulocytes # 0.230 H Neutrophils # 9.0 H Lymphocytes # 2.2 Monocytes # 0.9 Eosinophils # 0.4 Basophils # 0.1 Nucleated Red Blood Cells # 0.0 Sodium Level 141 Potassium Level 4.2 Chloride Level 103 Carbon Dioxide Level 32 H Anion Gap 6 Blood Urea Nitrogen 29 H Creatinine 0.84 Est Glomerular Filtrat Rate mL/min Glucose Level 125 Calcium Level 8.7 Medications Medication Current Medications Ondansetron HCl (Zofran Inj) 4 mg Q6H PRN IV NAUSEA AND/OR VOMITING; Start 03/27/18 at 20:00 Acetaminophen (Tylenol Tab) 650 mg Q6H PRN PO PAIN LEVEL 1-3 OR FEVER Last administered on 04/10/18 17:27; Admin Dose 650 MG; Start 03/27/18 at 20:00 Collagenase (Santyl) 1 applic DAILY TOP Last administered on 04/28/18 09:51; Admin Dose 1 APPLIC; Start 03/31/18 at 09:00 Mupirocin (Bactroban) 1 applic BID TOP Last administered on 04/28/18 09:51; Admin Dose 1 APPLIC; Start 03/31/18 at 11:00 Morphine Sulfate (morphine) 2 mg Q4H PRN IV PAIN LEVEL 7-10 Last administered on 04/05/18 21:59; Admin Dose 2 MG; Start 04/05/18 at 17:22 Ascorbic Acid (Vitamin C) 500 mg DAILY NGT Last administered on 04/28/18 09:51; Admin Dose 500 MG; Start 04/09/18 at 14:00 Zinc Sulfate (Zinc Sulfate) 220 mg DAILY NGT Last administered on 04/28/18 09:51; Admin Dose 220 MG; Start 04/10/18 at 09:00 Lansoprazole (Prevacid) 30 mg BID@0600,1800 PO Last administered on 04/28/18 05:34; Admin Dose 30 MG; Start 04/14/18 at 18:00 Multivitamins (Multivitamin) 30 ml DAILY NGT Last administered on 04/28/18 09:51; Admin Dose 30 ML; Start 04/16/18 at 16:30 Fluconazole (Diflucan) 100 mg DAILY PO Last administered on 04/28/18at 09:51; Admin Dose 100 MG; Start 04/27/18 at 16:00 Meropenem/Sodium Chloride 50 ml @ 100 mls/hr Q12 IVPB Last administered on 04/28/18at 16:07; Admin Dose 100 MLS/HR; Start 04/28/18 at 16:00 STEVEN BLANCO MD Apr 28, 2018 17:17
--- NOTE | 2018-04-28 17:29 | PN ---
Date/Time of Note Date/Time of Note DATE: 04/28/18 TIME: 17:27 Assessment/Plan VTE Prophylaxis Risk score (from Ns)>0 risk: 4 SCD applied (from Ns): Yes Pharmacological prophylaxis: LMWH Lines/Catheters IV Catheter Type (from Nrs): Saline Lock Central line still needed: Yes Urinary Cath still in place: Yes Reason Cath still needed: urinary retention Assessment/Plan Hospital Course Patient was increased leukocytosis yesterday restarted on antibiotics for possible aspiration pneumonia. Assessment/Plan -Anemia secondary to GI bleed. Dr. Gomes is following in GI consultation. Transfuse as needed, monitor hemoglobin and hematocrit. -Bleeding gastric ulcers, s/p hemostasis with placement of hemoclip during EGD b y Dr Guallpa on 04/03/18. Continue Protonix. -S/p septic shock secondary to urinary tract infection, continue antibiotics per ID. Dr. Guzman is following in infection disease consultation. -Hypoxemic respiratory failure, resolving. Dr. Nam is following in pulmonology consultation. -Acute kidney injury, resolved. Dr. Senior following in nephrology consultation. -Hypernatremia, resolved. -MRSA of nares, continue Bactroban -Dementia -Multiple pressure ulcers, optimize nutrition, continue vitamin C and zinc sulfate, off loading. -Protein calorie malnutrition Further recommendations based on clinical course. Plan of care discussed with Dr. Kiser. Result Diagram: 04/28/1844604/28/187 Results 24hrs Laboratory Tests Test 04/28/18 04:47 White Blood Count 12.8 #H Red Blood Count 2.97 L Hemoglobin 8.4 L Hematocrit 27.0 L Mean Corpuscular Volume 90.9 Mean Corpuscular Hemoglobin 28.3 L Mean Corpuscular Hemoglobin Concent 31.1 L Red Cell Distribution Width 16.6 H Platelet Count 385 Mean Platelet Volume 11.4 H Immature Granulocytes % 1.800 H Neutrophils % 70.1 Lymphocytes % 17.2 Monocytes % 7.4 Eosinophils % 3.0 Basophils % 0.5 Nucleated Red Blood Cells % 0.0 Immature Granulocytes # 0.230 H Neutrophils # 9.0 H Lymphocytes # 2.2 Monocytes # 0.9 Eosinophils # 0.4 Basophils # 0.1 Nucleated Red Blood Cells # 0.0 Sodium Level 141 Potassium Level 4.2 Chloride Level 103 Carbon Dioxide Level 32 H Anion Gap 6 Blood Urea Nitrogen 29 H Creatinine 0.84 Est Glomerular Filtrat Rate mL/min Glucose Level 125 Calcium Level 8.7 Subjective 24 Hr Interval Summary Free Text/Dictation Constitutional: alert, oriented, frail ENMT: nl external ears & nose, other (NGT) Respiratory: diminished breath sounds Cardiovascular: nl pulses Gastrointestinal: soft, non-tender Musculoskeletal: muscle weakness Extremities: normal pulses Exam/Review of Systems Exam Vitals Vital Signs Date Temp Pulse Resp B/P (MAP) Pulse Ox O2 O2 Flow FiO2 Time Delivery Rate 04/28/18 98.4 84 16 123/60 96 13:42 (81) 04/27/18 Room Air 14:00 Intake and Output 04/27/18 04/27/18 04/28/18 1515:00 23:00 07:00 OutputOutput Total 600 ml 500 ml BalanceBalance -600 ml -500 ml Results Results 24hrs Laboratory Tests Test 04/28/18 04:47 White Blood Count 12.8 #H Red Blood Count 2.97 L Hemoglobin 8.4 L Hematocrit 27.0 L Mean Corpuscular Volume 90.9 Mean Corpuscular Hemoglobin 28.3 L Mean Corpuscular Hemoglobin Concent 31.1 L Red Cell Distribution Width 16.6 H Platelet Count 385 Mean Platelet Volume 11.4 H Immature Granulocytes % 1.800 H Neutrophils % 70.1 Lymphocytes % 17.2 Monocytes % 7.4 Eosinophils % 3.0 Basophils % 0.5 Nucleated Red Blood Cells % 0.0 Immature Granulocytes # 0.230 H Neutrophils # 9.0 H Lymphocytes # 2.2 Monocytes # 0.9 Eosinophils # 0.4 Basophils # 0.1 Nucleated Red Blood Cells # 0.0 Sodium Level 141 Potassium Level 4.2 Chloride Level 103 Carbon Dioxide Level 32 H Anion Gap 6 Blood Urea Nitrogen 29 H Creatinine 0.84 Est Glomerular Filtrat Rate mL/min Glucose Level 125 Calcium Level 8.7 Medications Medication Current Medications Ondansetron HCl (Zofran Inj) 4 mg Q6H PRN IV NAUSEA AND/OR VOMITING; Start 03/27/18 at 20:00 Acetaminophen (Tylenol Tab) 650 mg Q6H PRN PO PAIN LEVEL 1-3 OR FEVER Last administered on 04/10/18at 17:27; Admin Dose 650 MG; Start 03/27/18 at 20:00 Collagenase (Santyl) 1 applic DAILY TOP Last administered on 04/28/18 09:51; Admin Dose 1 APPLIC; Start 03/31/18 at 09:00 Mupirocin (Bactroban) 1 applic BID TOP Last administered on 04/28/18 09:51; Admin Dose 1 APPLIC; Start 03/31/18 at 11:00 Morphine Sulfate (morphine) 2 mg Q4H PRN IV PAIN LEVEL 7-10 Last administered on 04/05/18 21:59; Admin Dose 2 MG; Start 04/05/18 at 17:22 Ascorbic Acid (Vitamin C) 500 mg DAILY NGT Last administered on 04/28/18 09:51; Admin Dose 500 MG; Start 04/09/18 at 14:00 Zinc Sulfate (Zinc Sulfate) 220 mg DAILY NGT Last administered on 04/28/18 09:51; Admin Dose 220 MG; Start 04/10/18 at 09:00 Lansoprazole (Prevacid) 30 mg BID@0600,1800 PO Last administered on 04/28/18 05:34; Admin Dose 30 MG; Start 04/14/18 at 18:00 Multivitamins (Multivitamin) 30 ml DAILY NGT Last administered on 04/28/18 09:51; Admin Dose 30 ML; Start 04/16/18 at 16:30 Fluconazole (Diflucan) 100 mg DAILY PO Last administered on 04/28/18 09:51; Admin Dose 100 MG; Start 04/27/18 at 16:00 Meropenem/Sodium Chloride 50 ml @ 100 mls/hr Q12 IVPB Last administered on 04/28/18 16:07; Admin Dose 100 MLS/HR; Start 04/28/18 at 16:00 JUDY CORNEJO Apr 28, 2018 17:29
--- NOTE | 2018-04-28 17:34 | CONS ---
DATE OF ADMISSION: 03/27/2018 DATE OF CONSULTATION: TYPE OF CONSULTATION: Gastroenterology. HISTORY OF PRESENT ILLNESS: An 88-year-old male with a history of cirrhosis of liver, status post GI bleeding, is being fed through the NG tube. His p.o. intake had been poor and he is high risk for t he aspiration. OBJECTIVE: GENERAL: Awake. ABDOMEN: Benign. LUNGS: Diminished air entry. EXTREMITIES: No edema. CENTRAL NERVOUS SYSTEM: I spoke to patient regarding the PEG. LABORATORY DATA: Hematocrit is 27, WBC is 12.8. Alkaline phosphatase is 424. IMPRESSION: 1. Cirrhosis of liver. 2. Dysphagia, being fed through NG tube. 3. Urinary tract infection. 4. Dementia. 5. Status post gastrointestinal bleeding. 6. Leukocytosis, better. PLAN: To continue present care. Waiting for the consent for PEG. Dictated By: ATTILA UMANZOR MD PJ/NTS Conf#: [id number] DID#: [id number] CC: DEENA BASILIO MD; LESLYE CROWDER MD;*EndCC*
[2018-04-28 19:24] VITALS: BP 120/79; PULSE 89; RESP 18
[2018-04-29] MEDS: MEROPENEM 500MG/50 ML (PMX) 50 ML IVPB SCH ×3 (00:41→20:40)
[2018-04-29 01:55] VITALS: BP 117/59; PULSE 84; RESP 18
[2018-04-29] MEDS: LANSOPRAZOLE 30 MG CAP PO SCH ×2 (05:38→18:21)
[2018-04-29 07:19] VITALS: BP 114/59; PULSE 85; RESP 18
--- NOTE | 2018-04-29 08:06 | CONS ---
Assessment/Plan Assessment/Plan Assessment/Plan (Daily) 1. Acute kidney injury on CKD due to ATN + prerenal azotemia 2. acute blood loss anemia- 3. acute hyperkalemia- now resolved 4. acute hypoxemic resp failure 5. Sepsis due to acute UTI 6. Severe metabolic acidosis due to FLORES 7. Hypernatremia 8. Upper GI bleeding Plan: BUN/Cr 29/0.96 other electrolytes stable, BP stable w/o midodrine, WBC improved from 21 to 12.2 Renal US showed No evidence of hydronephrosis or mass, Nonobstructing intrarenal calculi are seen in the mid right kidney measuring 4 mm in 7 mm. 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.8 x 6.7 x 8.3 cm will follow up Consultation Date/Type/Reason Admit Date/Time Mar 27, 2018 at 20:08 Initial Consult Date 03/31/18 Type of Consult NEPHROLOGY Requesting Provider: DEENA BASILIO Date/Time of Note DATE: 04/29/18 TIME: 08:06 Exam/Review of Systems Exam Vitals Vital Signs Date Temp Pulse Resp B/P (MAP) Pulse Ox O2 O2 Flow FiO2 Time Delivery Rate 04/29/18 97.4 85 18 114/59 96 Room Air 07:19 (77) Intake and Output 04/28/18 04/28/18 04/29/18 1515:00 23:00 07:00 IntakeIntake Total 170 ml 50 ml OutputOutput Total 600 ml BalanceBalance -430 ml 50 ml Exam Constitutional: alert Psych: no complaints Head: normocephalic ENMT: nl external ears & nose Neck: supple, non-tender Respiratory: clear to auscultation, normal air movement, diminished breath sounds Cardiovascular: regular rate and rhythm, nl pulses Gastrointestinal: soft, non-tender Musculoskeletal: nl extremities to inspection Results Result Diagram: 04/29/18 0451 04/29/18 0451 Results 24hrs Laboratory Tests Test 04/29/18 04:51 White Blood Count 12.2 H Red Blood Count 3.09 L Hemoglobin 8.6 L Hematocrit 28.0 L Mean Corpuscular Volume 90.6 Mean Corpuscular Hemoglobin 27.8 L Mean Corpuscular Hemoglobin Concent 30.7 L Red Cell Distribution Width 16.6 H Platelet Count 365 Mean Platelet Volume 10.8 H Immature Granulocytes % 2.000 H Neutrophils % 69.8 Lymphocytes % 17.3 Monocytes % 7.8 Eosinophils % 2.5 Basophils % 0.6 Nucleated Red Blood Cells % 0.0 Immature Granulocytes # 0.240 H Neutrophils # 8.5 H Lymphocytes # 2.1 Monocytes # 1.0 H Eosinophils # 0.3 Basophils # 0.1 Nucleated Red Blood Cells # 0.0 Sodium Level 140 Potassium Level 4.5 Chloride Level 102 Carbon Dioxide Level 31 Anion Gap 7 Blood Urea Nitrogen 29 H Creatinine 0.96 Est Glomerular Filtrat Rate mL/min Glucose Level 103 Calcium Level 8.5 Medications Medication Current Medications Collagenase (Santyl) 1 applic DAILY TOP Last administered on 04/28/18 09:51; Admin Dose 1 APPLIC; Start 03/31/18 at 09:00 Mupirocin (Bactroban) 1 applic BID TOP Last administered on 04/28/18 22:11; Admin Dose 1 APPLIC; Start 03/31/18 at 11:00 Morphine Sulfate (morphine) 2 mg Q4H PRN IV PAIN LEVEL 7-10 Last administered on 04/05/18 21:59; Admin Dose 2 MG; Start 04/05/18 at 17:22 Ascorbic Acid (Vitamin C) 500 mg DAILY NGT Last administered on 04/28/18 09:51; Admin Dose 500 MG; Start 04/09/18 at 14:00 Zinc Sulfate (Zinc Sulfate) 220 mg DAILY NGT Last administered on 04/28/18 09:51; Admin Dose 220 MG; Start 04/10/18 at 09:00 Lansoprazole (Prevacid) 30 mg BID@0600,1800 PO Last administered on 04/29/18 05:38; Admin Dose 30 MG; Start 04/14/18 at 18:00 Multivitamins (Multivitamin) 30 ml DAILY NGT Last administered on 04/28/18 09:51; Admin Dose 30 ML; Start 04/16/18 at 16:30 Fluconazole (Diflucan) 100 mg DAILY PO Last administered on 04/28/18 09:51; Admin Dose 100 MG; Start 04/27/18 at 16:00 Meropenem/Sodium Chloride 50 ml @ 100 mls/hr Q12 IVPB Last administered on 04/29/18 00:41; Admin Dose 100 MLS/HR; Start 04/28/18 at 16:00 STEVEN BLANCO MD Apr 29, 2018 08:06
[2018-04-29] MEDS: ASCORBIC ACID 500 MG TAB NGT SCH (08:29)
[2018-04-29] MEDS: MUPIROCIN 2% 22 GM OINT TOP SCH ×2 (08:29→20:40)
[2018-04-29] MEDS: MULTIVITAMINS 30 ML CUP NGT SCH (08:29)
[2018-04-29] MEDS: FLUCONAZOLE 100 MG TAB PO SCH (08:29)
[2018-04-29] MEDS: COLLAGENASE 5 GM (UD JAR) TOP SCH (08:29)
[2018-04-29] MEDS: BALSAM PERU/CASTOR OIL 60 GM TUBE TOP SCH ×2 (08:29→20:40)
[2018-04-29] MEDS: ZINC SULFATE 220 MG CAP NGT SCH (09:11)
--- NOTE | 2018-04-29 09:40 | CONS ---
Assessment/Plan Assessment/Plan Hospital Course (Demo Recall) No acute events overnight, no fevers Microbiology: Repeat urine culture growing E coli ESBL Chest x-ray revealed mild atelectasis at the lung bases. NG tube in the stomach Antimicrobials: Fluconazole, Merrem Indwelling: NG tube Honeycutt Physical examination: Well-developed chronically ill-appearing wasted elderly man who is in no distress. Head atraumatic normocephalic sclera nonicteric. Neck is supple chest rise symmetrical breath sounds diminished bases. Heart: S1-S2 abdomen distended tender on palpation extremities without cyanosis Assessment: 1. Leukocytosis 2 to UTI 2. Status post GI bleeding===> underwent EGD with Hemoclip placement 3. S/p E. coli ESBL UTI/ yeast UTI 4. History MRSA nares colonization 5. Dysphagia 6. Dementia Plan: Clinically stable, continue abx, pending PEG Consultation Date/Type/Reason Admit Date/Time Mar 27, 2018 at 20:08 Initial Consult Date 04/02/18 Type of Consult ID Requesting Provider: DEENA BASILIO Date/Time of Note DATE: 04/29/18 TIME: 09:39 Exam/Review of Systems Exam Vitals Vital Signs Date Temp Pulse Resp B/P (MAP) Pulse Ox O2 O2 Flow FiO2 Time Delivery Rate 04/29/18 97.4 85 18 114/59 96 Room Air 07:19 (77) Intake and Output 04/28/18 04/28/18 04/29/18 1515:00 23:00 07:00 IntakeIntake Total 170 ml 50 ml OutputOutput Total 600 ml BalanceBalance -430 ml 50 ml Results Result Diagram: 04/29/18 0451 04/29/18 0451 Results 24hrs Laboratory Tests Test 04/29/18 04:51 White Blood Count 12.2 H Red Blood Count 3.09 L Hemoglobin 8.6 L Hematocrit 28.0 L Mean Corpuscular Volume 90.6 Mean Corpuscular Hemoglobin 27.8 L Mean Corpuscular Hemoglobin Concent 30.7 L Red Cell Distribution Width 16.6 H Platelet Count 365 Mean Platelet Volume 10.8 H Immature Granulocytes % 2.000 H Neutrophils % 69.8 Lymphocytes % 17.3 Monocytes % 7.8 Eosinophils % 2.5 Basophils % 0.6 Nucleated Red Blood Cells % 0.0 Immature Granulocytes # 0.240 H Neutrophils # 8.5 H Lymphocytes # 2.1 Monocytes # 1.0 H Eosinophils # 0.3 Basophils # 0.1 Nucleated Red Blood Cells # 0.0 Sodium Level 140 Potassium Level 4.5 Chloride Level 102 Carbon Dioxide Level 31 Anion Gap 7 Blood Urea Nitrogen 29 H Creatinine 0.96 Est Glomerular Filtrat Rate mL/min Glucose Level 103 Calcium Level 8.5 Medications Medication Current Medications Collagenase (Santyl) 1 applic DAILY TOP Last administered on 04/29/18 08:29; Admin Dose 1 APPLIC; Start 03/31/18 at 09:00 Mupirocin (Bactroban) 1 applic BID TOP Last administered on 04/29/18 08:29; Admin Dose 1 APPLIC; Start 03/31/18 at 11:00 Morphine Sulfate (morphine) 2 mg Q4H PRN IV PAIN LEVEL 7-10 Last administered on 04/05/18 21:59; Admin Dose 2 MG; Start 04/05/18 at 17:22 Ascorbic Acid (Vitamin C) 500 mg DAILY NGT Last administered on 04/29/18 08:29; Admin Dose 500 MG; Start 04/09/18 at 14:00 Zinc Sulfate (Zinc Sulfate) 220 mg DAILY NGT Last administered on 04/29/18 09:11; Admin Dose 220 MG; Start 04/10/18 at 09:00 Lansoprazole (Prevacid) 30 mg BID@0600,1800 PO Last administered on 04/29/18 05:38; Admin Dose 30 MG; Start 04/14/18 at 18:00 Multivitamins (Multivitamin) 30 ml DAILY NGT Last administered on 04/29/18 08:29; Admin Dose 30 ML; Start 04/16/18 at 16:30 Fluconazole (Diflucan) 100 mg DAILY PO Last administered on 04/29/18 08:29; A dmin Dose 100 MG; Start 04/27/18 at 16:00 Meropenem/Sodium Chloride 50 ml @ 100 mls/hr Q12 IVPB Last administered on 04/29/18 08:41; Admin Dose 100 MLS/HR; Start 04/28/18 at 16:00 DAVONTE MCMAHAN NP Apr 29, 2018 09:40
--- NOTE | 2018-04-29 13:58 | CONS ---
Consultation Date/Type/Reason Admit Date/Time Mar 27, 2018 at 20:08 Initial Consult Date 04/02/18 Requesting Provider: DEENA BASILIO Date/Time of Note DATE: 04/29/18 TIME: 13:55 Exam/Review of Systems Exam Vitals Vital Signs Date Temp Pulse Resp B/P (MAP) Pulse Ox O2 O2 Flow FiO2 Time Delivery Rate 04/29/18 97.4 85 18 114/59 96 Room Air 07:19 (77) Intake and Output 04/28/18 04/28/18 04/29/18 1515:00 23:00 07:00 IntakeIntake Total 170 ml 50 ml OutputOutput Total 600 ml BalanceBalance -430 ml 50 ml Exam NGT in place awake in NAD abd soft, NT 1Cirrhosis of liverunsure how documented( neg CT, nl plts. INR mild elevation 2. Dysphagia, being fed through NG tube. 3. Urinary tract infection. 4. Dementia. 5. Status post gastrointestinal bleeding. per Nurse tolerating 60 ml/hr feedings, having BM's awaiting Bioethics for ok for PEG so as to place pt in facility Results Result Diagram: 04/29/18 0451 04/29/18 0451 Results 24hrs Laboratory Tests Test 04/29/18 04:51 White Blood Count 12.2 H Red Blood Count 3.09 L Hemoglobin 8.6 L Hematocrit 28.0 L Mean Corpuscular Volume 90.6 Mean Corpuscular Hemoglobin 27.8 L Mean Corpuscular Hemoglobin Concent 30.7 L Red Cell Distribution Width 16.6 H Platelet Count 365 Mean Platelet Volume 10.8 H Immature Granulocytes % 2.000 H Neutrophils % 69.8 Lymphocytes % 17.3 Monocytes % 7.8 Eosinophils % 2.5 Basophils % 0.6 Nucleated Red Blood Cells % 0.0 Immature Granulocytes # 0.240 H Neutrophils # 8.5 H Lymphocytes # 2.1 Monocytes # 1.0 H Eosinophils # 0.3 Basophils # 0.1 Nucleated Red Blood Cells # 0.0 Sodium Level 140 Potassium Level 4.5 Chloride Level 102 Carbon Dioxide Level 31 Anion Gap 7 Blood Urea Nitrogen 29 H Creatinine 0.96 Est Glomerular Filtrat Rate mL/min Glucose Level 103 Calcium Level 8.5 Medications Medication Current Medications Collagenase (Santyl) 1 applic DAILY TOP Last administered on 04/29/18at 08:29; Admin Dose 1 APPLIC; Start 12/31/18 at 09:00 Mupirocin (Bactroban) 1 applic BID TOP Last administered on 04/29/18 08:29; Admin Dose 1 APPLIC; Start 03/31/18 at 11:00 Morphine Sulfate (morphine) 2 mg Q4H PRN IV PAIN LEVEL 7-10 Last administered on 04/05/18 21:59; Admin Dose 2 MG; Start 04/05/18 at 17:22 Ascorbic Acid (Vitamin C) 500 mg DAILY NGT Last administered on 04/29/18 08:29; Admin Dose 500 MG; Start 04/09/18 at 14:00 Zinc Sulfate (Zinc Sulfate) 220 mg DAILY NGT Last administered on 04/29/18 09:11; Admin Dose 220 MG; Start 04/10/18 at 09:00 Lansoprazole (Prevacid) 30 mg BID@0600,1800 PO Last administered on 04/29/18 05:38; Admin Dose 30 MG; Start 04/14/18 at 18:00 Multivitamins (Multivitamin) 30 ml DAILY NGT Last administered on 04/29/18 08:29; Admin Dose 30 ML; Start 04/16/18 at 16:30 Fluconazole (Diflucan) 100 mg DAILY PO Last administered on 04/29/18 08:29; Admin Dose 100 MG; Start 04/27/18 at 16:00 Meropenem/Sodium Chloride 50 ml @ 100 mls/hr Q12 IVPB Last administered on 04/29/18 08:41; Admin Dose 100 MLS/HR; Start 04/28/18 at 16:00 KULDIP BUI MD Apr 29, 2018 13:58
[2018-04-29 14:48] VITALS: BP 122/57; PULSE 93; RESP 18
--- NOTE | 2018-04-29 16:48 | PN ---
DATE: 04/29/2018 ADDENDUM: I examined the patient in presence of charge nurse, Aline. We tried to assess his ment al status for G-tube and POLST. The patient was alert and was able to give his name correctly and hi s birthdate and month correctly; however, he was not oriented to place and time. On 04/24/2018 when I examined him in the presence of Daniele, social media content manager, he was able to understand G-tube placement i n place of a continuous NG tube feeding. Due to dementia, the patient has fluctuating cognitive func tion. Based on my examination and interview today, I do not think he is able to sign consent for G-t ube as well as a POLST form. We will reconsult social media content manager, Daniele, to arrange for ethics committe e meeting. Dictated By: RONNA RAMIREZ MD AB/NTS Conf#: [id number] DID#: [id number] CC: DEENA BASILIO MD; LESLYE CROWDER MD;*EndCC*
[2018-04-29 19:28] VITALS: BP 124/60; PULSE 93; RESP 16
--- NOTE | 2018-04-29 22:33 | PN ---
Date/Time of Note Date/Time of Note DATE: 04/29/18 TIME: 22:30 Assessment/Plan VTE Prophylaxis Risk score (from Ns)>0 risk: 6 SCD applied (from Ns): Yes Pharmacological prophylaxis: NA/contraindicated Pharm contraindication: bleeding Lines/Catheters [facility] Saline Lock Urinary Cath still in place: Yes Reason Cath still needed: urinary retention Assessment/Plan Hospital Course Patient remains hemodynamically stable no fever, awaits for ethics committee meeting for possible G-tube placement. Assessment/Plan -Possible aspiration pneumonia, continue antibiotics per ID. -Anemia secondary to GI bleed. Dr. Gomes is following in GI consultation. Transfuse as needed, monitor hemoglobin and hematocrit. -Bleeding gastric ulcers, s/p hemostasis with placement of hemoclip during EGD by Dr Guallpa on 04/03/18. Continue Protonix. -S/p septic shock secondary to urinary tract infection, continue antibiotics per ID. Dr. Guzman is following in infection disease consultation. -Hypoxemic respiratory failure, resolving. Dr. Nam is following in pulmonology consultation. -Acute kidney injury, resolved. Dr. Senior following in nephrology consultation. -Hypernatremia, resolved. 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 -Protein calorie malnutrition Further recommendations based on clinical course. Plan of care discussed with Dr. Kiser. Result Diagram: 04/29/18 0451 04/29/18 0451 Results 24hrs Laboratory Tests Test 04/29/18 04:51 White Blood Count 12.2 H Red Blood Count 3.09 L Hemoglobin 8.6 L Hematocrit 28.0 L Mean Corpuscular Volume 90.6 Mean Corpuscular Hemoglobin 27.8 L Mean Corpuscular Hemoglobin Concent 30.7 L Red Cell Distribution Width 16.6 H Platelet Count 365 Mean Platelet Volume 10.8 H Immature Granulocytes % 2.000 H Neutrophils % 69.8 Lymphocytes % 17.3 Monocytes % 7.8 Eosinophils % 2.5 Basophils % 0.6 Nucleated Red Blood Cells % 0.0 Immature Granulocytes # 0.240 H Neutrophils # 8.5 H Lymphocytes # 2.1 Monocytes # 1.0 H Eosinophils # 0.3 Basophils # 0.1 Nucleated Red Blood Cells # 0.0 Sodium Level 140 Potassium Level 4.5 Chloride Level 102 Carbon Dioxide Level 31 Anion Gap 7 Blood Urea Nitrogen 29 H Creatinine 0.96 Est Glomerular Filtrat Rate mL/min Glucose Level 103 Calcium Level 8.5 Exam/Review of Systems Exam Vitals Vital Signs Date Temp Pulse Resp B/P (MAP) Pulse Ox O2 O2 Flow FiO2 Time Delivery Rate 04/29/18 98.0 93 16 124/60 95 19:28 (81) 04/29/18 Room Air 14:48 Intake and Output 04/28/18 04/28/18 04/29/18 1515:00 23:00 07:00 IntakeIntake Total 170 ml 50 ml OutputOutput Total 600 ml BalanceBalance -430 ml 50 ml Exam Constitutional: alert, oriented, frail ENMT: nl external ears & nose, other (NGT) Respiratory: diminished breath sounds Cardiovascular: nl pulses Gastrointestinal: soft, non-tender Musculoskeletal: muscle weakness Extremities: normal pulses Results Results 24hrs Laboratory Tests Test 04/29/18 04:51 White Blood Count 12.2 H Red Blood Count 3.09 L Hemoglobin 8.6 L Hematocrit 28.0 L Mean Corpuscular Volume 90.6 Mean Corpuscular Hemoglobin 27.8 L Mean Corpuscular Hemoglobin Concent 30.7 L Red Cell Distribution Width 16.6 H Platelet Count 365 Mean Platelet Volume 10.8 H Immature Granulocytes % 2.000 H Neutrophils % 69.8 Lymphocytes % 17.3 Monocytes % 7.8 Eosinophils % 2.5 Basophils % 0.6 Nucleated Red Blood Cells % 0.0 Immature Granulocytes # 0.240 H Neutrophils # 8.5 H Lymphocytes # 2.1 Monocytes # 1.0 H Eosinophils # 0.3 Basophils # 0.1 Nucleated Red Blood Cells # 0.0 Sodium Level 140 Potassium Level 4.5 Chloride Level 102 Carbon Dioxide Level 31 Anion Gap 7 Blood Urea Nitrogen 29 H Creatinine 0.96 Est Glomerular Filtrat Rate mL/min Glucose Level 103 Calcium Level 8.5 Medications Medication Current Medications Collagenase (Santyl) 1 applic DAILY TOP Last administered on 04/29/18at 08:29; Admin Dose 1 APPLIC; Start 03/31/18 at 09:00 Mupirocin (Bactroban) 1 applic BID TOP Last administered on 04/29/18at 20:40; Admin Dose 1 APPLIC; Start 03/31/18 at 11:00 Morphine Sulfate (morphine) 2 mg Q4H PRN IV PAIN LEVEL 7-10 Last administered on 04/05/18 21:59; Admin Dose 2 MG; Start 04/05/18 at 17:22 Ascorbic Acid (Vitamin C) 500 mg DAILY NGT Last administered on 04/29/18 08:29; Admin Dose 500 MG; Start 04/09/18 at 14:00 Zinc Sulfate (Zinc Sulfate) 220 mg DAILY NGT Last administered on 04/29/18 09:11; Admin Dose 220 MG; Start 04/10/18 at 09:00 Lansoprazole (Prevacid) 30 mg BID@0600,1800 PO Last administered on 04/29/18 18:21; Admin Dose 30 MG; Start 04/14/18 at 18:00 Multivitamins (Multivitamin) 30 ml DAILY NGT Last administered on 04/29/18 08:29; Admin Dose 30 ML; Start 04/16/18 at 16:30 Fluconazole (Diflucan) 100 mg DAILY PO Last administered on 04/29/18 08:29; Admin Dose 100 MG; Start 04/27/18 at 16:00 Meropenem/Sodium Chloride 50 ml @ 100 mls/hr Q12 IVPB Last administered on 04/29/18 20:40; Admin Dose 100 MLS/HR; Start 04/28/18 at 16:00 JUDY CORNEJO Apr 29, 2018 22:33
[2018-04-30 01:28] VITALS: BP 138/62; PULSE 93; RESP 16
[2018-04-30] MEDS: LANSOPRAZOLE 30 MG CAP PO SCH ×2 (05:41→18:11)
[2018-04-30 07:40] VITALS: BP 121/60; PULSE 86; RESP 18
[2018-04-30] MEDS: BALSAM PERU/CASTOR OIL 60 GM TUBE TOP SCH ×2 (08:05→21:23)
[2018-04-30] MEDS: ZINC SULFATE 220 MG CAP NGT SCH (08:05)
[2018-04-30] MEDS: FLUCONAZOLE 100 MG TAB PO SCH (08:05)
[2018-04-30] MEDS: MEROPENEM 500MG/50 ML (PMX) 50 ML IVPB SCH ×2 (08:05→21:23)
[2018-04-30] MEDS: ASCORBIC ACID 500 MG TAB NGT SCH (08:05)
[2018-04-30] MEDS: COLLAGENASE 5 GM (UD JAR) TOP SCH (08:05)
[2018-04-30] MEDS: MULTIVITAMINS 30 ML CUP NGT SCH (08:05)
[2018-04-30] MEDS: MUPIROCIN 2% 22 GM OINT TOP SCH (08:05)
--- NOTE | 2018-04-30 11:54 | CONS ---
Assessment/Plan Assessment/Plan Hospital Course (Demo Recall) All noted, patient looks comfortable, no fevers overnight. WBC 12.4 platelets 349 neutrophils 69 BUN 29 creatinine 0.85 Microbiology: Urine culture growing E. coli ESBL Antimicrobials: Meropenem, fluconazole Indwelling: NG tube Honeycutt Physical examination: Well-developed chronically ill-appearing wasted elderly man who is in no distress. Head atraumatic normocephalic sclera nonicteric. Neck is supple chest rise symmetrical breath sounds diminished bases. Heart: S1-S2 abdomen distended tender on palpation extremities without cyanosis Assessment: 1. Leukocytosis 2 to UTI 2. Status post GI bleeding===> underwent EGD with Hemoclip placement 3. S/p E. coli ESBL UTI/ yeast UTI 4. History MRSA nares colonization 5. Dysphagia 6. Dementia Plan: Clinically stable, continue abx, dc Diflucan, awaiting Bioethics for ok for PEG Consultation Date/Type/Reason Admit Date/Time Mar 27, 2018 at 20:08 Initial Consult Date 04/02/18 Type of Consult ID Requesting Provider: DEENA BASILIO Date/Time of Note DATE: 04/30/18 TIME: 11:53 Exam/Review of Systems Exam Vitals Vital Signs Date Temp Pulse Resp B/P (MAP) Pulse Ox O2 O2 Flow FiO2 Time Delivery Rate 04/30/18 97.4 86 18 121/60 96 Room Air 07:40 (80) Intake and Output 04/29/18 04/29/18 04/30/18 1515:00 23:00 07:00 IntakeIntake Total 200 ml 895 ml 350 ml OutputOutput Total 500 ml 1000 ml BalanceBalance 200 ml 395 ml -650 ml Results Result Diagram: 04/30/18 0512 04/30/18 0512 Results 24hrs Laboratory Tests Test 04/30/18 05:12 White Blood Count 12.4 H Red Blood Count 3.05 L Hemoglobin 8.5 L Hematocrit 27.8 L Mean Corpuscular Volume 91.1 Mean Corpuscular Hemoglobin 27.9 L Mean Corpuscular Hemoglobin Concent 30.6 L Red Cell Distribution Width 16.6 H Platelet Count 349 Mean Platelet Volume 10.9 H Immature Granulocytes % 1.600 H Neutrophils % 69.0 Lymphocytes % 18.5 Monocytes % 8.0 Eosinophils % 2.3 Basophils % 0.6 Nucleated Red Blood Cells % 0.0 Immature Granulocytes # 0.200 H Neutrophils # 8.5 H Lymphocytes # 2.3 Monocytes # 1.0 H Eosinophils # 0.3 Basophils # 0.1 Nucleated Red Blood Cells # 0.0 Sodium Level 141 Potassium Level 4.3 Chloride Level 103 Carbon Dioxide Level 32 H Anion Gap 6 Blood Urea Nitrogen 29 H Creatinine 0.85 Est Glomerular Filtrat Rate mL/min Glucose Level 90 Calcium Level 8.7 Medications Medication Current Medications Collagenase (Santyl) 1 applic DAILY TOP Last administered on 04/30/18 08:05; Admin Dose 1 APPLIC; Start 03/31/18 at 09:00 Morphine Sulfate (morphine) 2 mg Q4H PRN IV PAIN LEVEL 7-10 Last administered on 04/05/18 21:59; Admin Dose 2 MG; Start 04/05/18 at 17:22 Ascorbic Acid (Vitamin C) 500 mg DAILY NGT Last administered on 04/30/18 08:05; Admin Dose 500 MG; Start 04/09/18 at 14:00 Zinc Sulfate (Zinc Sulfate) 220 mg DAILY NGT Last administered on 04/30/18 08:05; Admin Dose 220 MG; Start 04/10/18 at 09:00 Lansoprazole (Prevacid) 30 mg BID@0600,1800 PO Last administered on 04/30/18 05:41; Admin Dose 30 MG; Start 04/14/18 at 18:00 Multivitamins (Multivitamin) 30 ml DAILY NGT Last administered on 04/30/18 08:05; Admin Dose 30 ML; Start 04/16/18 at 16:30 Fluconazole (Diflucan) 100 mg DAILY PO Last administered on 04/30/18 08:05; Admin Dose 100 MG; Start 04/27/18 at 16:00 Meropenem/Sodium Chloride 50 ml @ 100 mls/hr Q12 IVPB Last administered on 04/30/18 08:05; Admin Dose 100 MLS/HR; Start 04/28/18 at 16:00 Miscellaneous Information (*Order Clarification Bulletin) MEDICATION REQUIRES CLARIFICATI... Q12H XX ; Start 04/30/18 at 10:00 DAVONTE MCMAHAN NP Apr 30, 2018 11:54
--- NOTE | 2018-04-30 13:55 | PN ---
Date/Time of Note Date/Time of Note DATE: 04/30/18 TIME: 13:52 Assessment/Plan VTE Prophylaxis Risk score (from Ns)>0 risk: 7 SCD applied (from [facility] [place] [facility]): Yes Pharmacological prophylaxis: NA/contraindicated Pharm contraindication: bleeding Lines/Catheters [facility]from [facility] Saline Lock Urinary Cath still in place: Yes Reason Cath still needed: urinary retention Assessment/Plan Hospital Course Patient with tries to remove NG tube currently reinserted, x-ray to verify placement, patient remains hemodynamically stable no fever, awaits for ethics committee meeting for possible G-tube placement. Assessment/Plan -Possible aspiration pneumonia, continue antibiotics per ID. -Anemia secondary to GI bleed. Dr. Gomes is following in GI consultation. Transfuse as needed, monitor hemoglobin and hematocrit. -Bleeding gastric ulcers, s/p hemostasis with placement of hemoclip during EGD by Dr Guallpa on 04/03/18. Continue Protonix. -S/p septic shock secondary to urinary tract infection, continue antibiotics per ID. Dr. Guzman is following in infection disease consultation. -Hypoxemic respiratory failure, resolving. Dr. Nam is following in pulmonology consultation. -Acute kidney injury, resolved. Dr. Senior following in nephrology consultation. -Hypernatremia, resolved. 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 -Protein calorie malnutrition Further recommendations based on clinical course. Plan of care discussed with Dr. Kiser. Result Diagram: 04/30/1812 04/30/18 0512 Results 24hrs Laboratory Tests Test 04/30/18 05:12 White Blood Count 12.4 H Red Blood Count 3.05 L Hemoglobin 8.5 L Hematocrit 27.8 L Mean Corpuscular Volume 91.1 Mean Corpuscular Hemoglobin 27.9 L Mean Corpuscular Hemoglobin Concent 30.6 L Red Cell Distribution Width 16.6 H Platelet Count 349 Mean Platelet Volume 10.9 H Immature Granulocytes % 1.600 H Neutrophils % 69.0 Lymphocytes % 18.5 Monocytes % 8.0 Eosinophils % 2.3 Basophils % 0.6 Nucleated Red Blood Cells % 0.0 Immature Granulocytes # 0.200 H Neutrophils # 8.5 H Lymphocytes # 2.3 Monocytes # 1.0 H Eosinophils # 0.3 Basophils # 0.1 Nucleated Red Blood Cells # 0.0 Sodium Level 141 Potassium Level 4.3 Chloride Level 103 Carbon Dioxide Level 32 H Anion Gap 6 Blood Urea Nitrogen 29 H Creatinine 0.85 Est Glomerular Filtrat Rate mL/min Glucose Level 90 Calcium Level 8.7 Subjective 24 Hr Interval Summary Free Text/Dictation Constitutional: alert, oriented, frail ENMT: nl external ears & nose, other (NGT) Respiratory: diminished breath sounds Cardiovascular: nl pulses Gastrointestinal: soft, non-tender Musculoskeletal: muscle weakness Extremities: normal pulses Exam/Review of Systems Exam Vitals Vital Signs Date Temp Pulse Resp B/P (MAP) Pulse Ox O2 O2 Flow FiO2 Time Delivery Rate 04/30/18 97.4 86 18 121/60 96 Room Air 07:40 (80) Intake and Output 04/29/18 04/29/18 04/30/18 1515:00 23:00 07:00 IntakeIntake Total 200 ml 895 ml 350 ml OutputOutput Total 500 ml 1000 ml BalanceBalance 200 ml 395 ml -650 ml Results Results 24hrs Laboratory Tests Test 04/30/18 05:12 White Blood Count 12.4 H Red Blood Count 3.05 L Hemoglobin 8.5 L Hematocrit 27.8 L Mean Corpuscular Volume 91.1 Mean Corpuscular Hemoglobin 27.9 L Mean Corpuscular Hemoglobin Concent 30.6 L Red Cell Distribution Width 16.6 H Platelet Count 349 Mean Platelet Volume 10.9 H Immature Granulocytes % 1.600 H Neutrophils % 69.0 Lymphocytes % 18.5 Monocytes % 8.0 Eosinophils % 2.3 Basophils % 0.6 Nucleated Red Blood Cells % 0.0 Immature Granulocytes # 0.200 H Neutrophils # 8.5 H Lymphocytes # 2.3 Monocytes # 1.0 H Eosinophils # 0.3 Basophils # 0.1 Nucleated Red Blood Cells # 0.0 Sodium Level 141 Potassium Level 4.3 Chloride Level 103 Carbon Dioxide Level 32 H Anion Gap 6 Blood Urea Nitrogen 29 H Creatinine 0.85 Est Glomerular Filtrat Rate mL/min Glucose Level 90 Calcium Level 8.7 Medications Medication Current Medications Collagenase (Santyl) 1 applic DAILY TOP Last administered on 04/30/18at 08:05; Admin Dose 1 APPLIC; Start 03/31/18 at 09:00 Morphine Sulfate (morphine) 2 mg Q4H PRN IV PAIN LEVEL 7-10 Last administered on 04/05/18at 21:59; Admin Dose 2 MG; Start 04/05/18 at 17:22 Ascorbic Acid (Vitamin C) 500 mg DAILY NGT Last administered on 04/30/18 08:05; Admin Dose 500 MG; Start 04/09/18 at 14:00 Zinc Sulfate (Zinc Sulfate) 220 mg DAILY NGT Last administered on 04/30/18 08:05; Admin Dose 220 MG; Start 04/10/18 at 09:00 Lansoprazole (Prevacid) 30 mg BID@0600,1800 PO Last administered on 04/30/18 05:41; Admin Dose 30 MG; Start 04/14/18 at 18:00 Multivitamins (Multivitamin) 30 ml DAILY NGT Last administered on 04/30/18 08:05; Admin Dose 30 ML; Start 04/16/18 at 16:30 Meropenem/Sodium Chloride 50 ml @ 100 mls/hr Q12 IVPB Last administered on 04/30/18 08:05; Admin Dose 100 MLS/HR; Start 04/28/18 at 16:00 Miscellaneous Information (*Order Clarification Bulletin) MEDICATION REQUIRES CLARIFICATI... Q12H XX ; Start 04/30/18 at 10:00 JUDY CORNEJO Apr 30, 2018 13:55
[2018-04-30 14:47] VITALS: BP 127/60; PULSE 84; RESP 18
--- NOTE | 2018-04-30 15:11 | CONS ---
Assessment/Plan Assessment/Plan Assessment/Plan (Daily) HISTORY OF PRESENT ILLNESS: An 88-year-old male with a history of cirrhosis of liver, status post GI bleeding, is being fed through the NG tube. His p.o. intake had been poor and he is high risk for the aspiration. OBJECTIVE: GENERAL: Awake. ABDOMEN: Benign. LUNGS: Diminished air entry. EXTREMITIES: No edema. CENTRAL NERVOUS SYSTEM: I spoke to patient regarding the PEG. LABORATORY DATA: Hematocrit is 27, WBC is 12.8. Alkaline phosphatase is 424. IMPRESSION: 1. Cirrhosis of liver. 2. Dysphagia, being fed through NG tube. 3. Urinary tract infection. 4. Dementia. 5. Status post gastrointestinal bleeding. 6. Leukocytosis, better. PLAN: To continue present care. Waiting for the consent for PEG. Bioethics committee will decide within a day or 2 regarding PEG Consultation Date/Type/Reason Admit Date/Time Mar 27, 2018 at 20:08 Initial Consult Date 04/02/18 Requesting Provider: DEENA BASILIO Date/Time of Note DATE: 04/30/18 TIME: 15:11 24 HR Interval Summary Constitutional: no complaints Exam/Review of Systems Exam Vitals Vital Signs Date Temp Pulse Resp B/P (MAP) Pulse Ox O2 O2 Flow FiO2 Time Delivery Rate 04/30/18 98.0 84 18 127/60 95 14:47 (82) 04/30/18 Room Air 07:40 Intake and Output 04/29/18 04/29/18 04/30/18 1515:00 23:00 07:00 IntakeIntake Total 200 ml 895 ml 350 ml OutputOutput Total 500 ml 1000 ml BalanceBalance 200 ml 395 ml -650 ml Constitutional: alert Neck: supple, non-tender Cardiovascular: regular rate and rhythm, nl pulses Results Result Diagram: 04/30/18 0512 04/30/18 0512 Results 24hrs Laboratory Tests Test 04/30/18 05:12 White Blood Count 12.4 H Red Blood Count 3.05 L Hemoglobin 8.5 L Hematocrit 27.8 L Mean Corpuscular Volume 91.1 Mean Corpuscular Hemoglobin 27.9 L Mean Corpuscular Hemoglobin Concent 30.6 L Red Cell Distribution Width 16.6 H Platelet Count 349 Mean Platelet Volume 10.9 H Immature Granulocytes % 1.600 H Neutrophils % 69.0 Lymphocytes % 18.5 Monocytes % 8.0 Eosinophils % 2.3 Basophils % 0.6 Nucleated Red Blood Cells % 0.0 Immature Granulocytes # 0.200 H Neutrophils # 8.5 H Lymphocytes # 2.3 Monocytes # 1.0 H Eosinophils # 0.3 Basophils # 0.1 Nucleated Red Blood Cells # 0.0 Sodium Level 141 Potassium Level 4.3 Chloride Level 103 Carbon Dioxide Level 32 H Anion Gap 6 Blood Urea Nitrogen 29 H Creatinine 0.85 Est Glomerular Filtrat Rate mL/min Glucose Level 90 Calcium Level 8.7 Medications Medication Current Medications Collagenase (Santyl) 1 applic DAILY TOP Last administered on 04/30/18 08:05; Admin Dose 1 APPLIC; Start 03/31/18 at 09:00 Morphine Sulfate (morphine) 2 mg Q4H PRN IV PAIN LEVEL 7-10 Last administered on 04/05/18 21:59; Admin Dose 2 MG; Start 04/05/18 at 17:22 Ascorbic Acid (Vitamin C) 500 mg DAILY NGT Last administered on 04/30/18 08:05 ; Admin Dose 500 MG; Start 04/09/18 at 14:00 Zinc Sulfate (Zinc Sulfate) 220 mg DAILY NGT Last administered on 04/30/18 08:05; Admin Dose 220 MG; Start 04/10/18 at 09:00 Lansoprazole (Prevacid) 30 mg BID@0600,1800 PO Last administered on 04/30/18 05:41; Admin Dose 30 MG; Start 04/14/18 at 18:00 Multivitamins (Multivitamin) 30 ml DAILY NGT Last administered on 04/30/18 08:05; Admin Dose 30 ML; Start 04/16/18 at 16:30 Meropenem/Sodium Chloride 50 ml @ 100 mls/hr Q12 IVPB Last administered on 04/30/18 08:05; Admin Dose 100 MLS/HR; Start 04/28/18 at 16:00 Miscellaneous Information (*Order Clarification Bulletin) MEDICATION REQUIRES CLARIFICATI... Q12H XX ; Start 04/30/18 at 10:00 ATTILA UMANZOR MD Apr 30, 2018 15:11
--- NOTE | 2018-04-30 15:58 | CONS ---
Assessment/Plan Assessment/Plan Assessment/Plan (Daily) 1. Acute kidney injury on CKD due to ATN + prerenal azotemia 2. acute blood loss anemia- 3. acute hyperkalemia- now resolved 4. acute hypoxemic resp failure 5. Sepsis due to acute UTI 6. Severe metabolic acidosis due to FLORES 7. Hypernatremia 8. Upper GI bleeding Plan: BUN/Cr 29/0.85other electrolytes stable, BP stable w/o midodrine, WBC improved from 21 to 12.4 Renal US showed No evidence of hydronephrosis or mass, Nonobstructing intrarenal calculi are seen in the mid right kidney measuring 4 mm in 7 mm. 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.8 x 6.7 x 8.3 cm will follow up Consultation Date/Type/Reason Admit Date/Time Mar 27, 2018 at 20:08 Initial Consult Date 03/31/18 Type of Consult NEPHROLOGY Requesting Provider: DEENA BASILIO Date/Time of Note DATE: 04/30/18 TIME: 15:58 Exam/Review of Systems Exam Vitals Vital Signs Date Temp Pulse Resp B/P (MAP) Pulse Ox O2 O2 Flow FiO2 Time Delivery Rate 04/30/18 98.0 84 18 127/60 95 14:47 (82) 04/30/18 Room Air 07:40 Intake and Output 04/29/18 04/29/18 04/30/18 1515:00 23:00 07:00 IntakeIntake Total 200 ml 895 ml 350 ml OutputOutput Total 500 ml 1000 ml BalanceBalance 200 ml 395 ml -650 ml Exam Constitutional: alert Psych: no complaints Head: normocephalic ENMT: nl external ears & nose Neck: supple, non-tender Respiratory: clear to auscultation, normal air movement, diminished breath sounds Cardiovascular: regular rate and rhythm, nl pulses Gastrointestinal: soft, non-tender Musculoskeletal: nl extremities to inspection Results Result Diagram: 04/30/18 0512 04/30/18 0512 Results 24hrs Laboratory Tests Test 04/30/18 05:12 White Blood Count 12.4 H Red Blood Count 3.05 L Hemoglobin 8.5 L Hematocrit 27.8 L Mean Corpuscular Volume 91.1 Mean Corpuscular Hemoglobin 27.9 L Mean Corpuscular Hemoglobin Concent 30.6 L Red Cell Distribution Width 16.6 H Platelet Count 349 Mean Platelet Volume 10.9 H Immature Granulocytes % 1.600 H Neutrophils % 69.0 Lymphocytes % 18.5 Monocytes % 8.0 Eosinophils % 2.3 Basophils % 0.6 Nucleated Red Blood Cells % 0.0 Immature Granulocytes # 0.200 H Neutrophils # 8.5 H Lymphocytes # 2.3 Monocytes # 1.0 H Eosinophils # 0.3 Basophils # 0.1 Nucleated Red Blood Cells # 0.0 Sodium Level 141 Potassium Level 4.3 Chloride Level 103 Carbon Dioxide Level 32 H Anion Gap 6 Blood Urea Nitrogen 29 H Creatinine 0.85 Est Glomerular Filtrat Rate mL/min Glucose Level 90 Calcium Level 8.7 Medications Medication Current Medications Collagenase (Santyl) 1 applic DAILY TOP Last administered on 04/30/18 08:05; Admin Dose 1 APPLIC; Start 03/31/18 at 09:00 Morphine Sulfate (morphine) 2 mg Q4H PRN IV PAIN LEVEL 7-10 Last administered on 04/05/18 21:59; Admin Dose 2 MG; Start 04/05/18 at 17:22 Ascorbic Acid (Vitamin C) 500 mg DAILY NGT Last administered on 04/30/18 08:05; Admin Dose 500 MG; Start 04/09/18 at 14:00 Zinc Sulfate (Zinc Sulfate) 220 mg DAILY NGT Last administered on 04/30/18 08:05; Admin Dose 220 MG; Start 04/10/18 at 09:00 Lansoprazole (Prevacid) 30 mg BID@0600,1800 PO Last administered on 04/30/18 05:41; Admin Dose 30 MG; Start 04/14/18 at 18:00 Multivitamins (Multivitamin) 30 ml DAILY NGT Last administered on 04/30/18 08:05; Admin Dose 30 ML; Start 04/16/18 at 16:30 Meropenem/Sodium Chloride 50 ml @ 100 mls/hr Q12 IVPB Last administered on 04/30/18 08:05; Admin Dose 100 MLS/HR; Start 04/28/18 at 16:00 Miscellaneous Information (*Order Clarification Bulletin) MEDICATION REQUIRES CLARIFICATI... Q12H XX ; Start 04/30/18 at 10:00 STEVEN BLANCO MD Apr 30, 2018 15:58
[2018-04-30 20:00] VITALS: BP 109/60; PULSE 70; RESP 18
[2018-04-30] MEDS ORDERED: morphine LIQ (10 MG/5 ML) CUP NGT PRN (21:30)
[2018-05-01 02:00] VITALS: BP 124/62; PULSE 86; RESP 18
[2018-05-01] MEDS: LANSOPRAZOLE 30 MG CAP PO SCH ×2 (05:53→17:29)
[2018-05-01 07:53] VITALS: BP 121/59; PULSE 78; RESP 18
--- NOTE | 2018-05-01 07:57 | CONS ---
Assessment/Plan Assessment/Plan Assessment/Plan (Daily) 1. Acute kidney injury on CKD due to ATN + prerenal azotemia 2. acute blood loss anemia- 3. acute hyperkalemia- now resolved 4. acute hypoxemic resp failure 5. Sepsis due to acute UTI 6. Severe metabolic acidosis due to FLORES 7. Hypernatremia 8. Upper GI bleeding Plan: BUN/Cr 28/0.76- other electrolytes stable, BP stable w/o midodrine, WBC improved from 21 to 11.1 Renal US showed No evidence of hydronephrosis or mass, Nonobstructing intrarenal calculi are seen in the mid right kidney measuring 4 mm in 7 mm. 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.8 x 6.7 x 8.3 cm will follow up Consultation Date/Type/Reason Admit Date/Time Mar 27, 2018 at 20:08 Initial Consult Date 03/31/18 Type of Consult NEPHROLOGY Requesting Provider: DEENA BASILIO Date/Time of Note DATE: 05/01/18 TIME: 07:57 Exam/Review of Systems Exam Vitals Vital Signs Date Temp Pulse Resp B/P (MAP) Pulse Ox O2 O2 Flow FiO2 Time Delivery Rate 05/01/18 98.1 78 18 121/59 98 Room Air 07:53 (79) Intake and Output 04/30/18 04/30/18 05/01/18 1515:00 23:00 07:00 IntakeIntake Total 820 ml OutputOutput Total 450 ml BalanceBalance 370 ml Exam Constitutional: alert Psych: no complaints Head: normocephalic ENMT: nl external ears & nose Neck: supple, non-tender Respiratory: clear to auscultation, normal air movement, diminished breath sounds Cardiovascular: regular rate and rhythm, nl pulses Gastrointestinal: soft, non-tender Musculoskeletal: nl extremities to inspection Results Result Diagram: 05/01/18 0540 05/01/18 0540 Results 24hrs Laboratory Tests Test 05/01/18 05:40 White Blood Count 11.1 H Red Blood Count 3.08 L Hemoglobin 8.6 L Hematocrit 28.3 L Mean Corpuscular Volume 91.9 Mean Corpuscular Hemoglobin 27.9 L Mean Corpuscular Hemoglobin Concent 30.4 L Red Cell Distribution Width 16.6 H Platelet Count 329 Mean Platelet Volume 11.3 H Immature Granulocytes % 1.700 H Neutrophils % 68.7 Lymphocytes % 18.0 Monocytes % 8.5 Eosinophils % 2.5 Basophils % 0.6 Nucleated Red Blood Cells % 0.0 Immature Granulocytes # 0.190 H Neutrophils # 7.6 H Lymphocytes # 2.0 Monocytes # 0.9 Eosinophils # 0.3 Basophils # 0.1 Nucleated Red Blood Cells # 0.0 Sodium Level 143 Potassium Level 4.5 Chloride Level 107 Carbon Dioxide Level 32 H Anion Gap 4 L Blood Urea Nitrogen 28 H Creatinine 0.76 Est Glomerular Filtrat Rate mL/min Glucose Level 117 Calcium Level 8.6 Medications Medication Current Medications Collagenase (Santyl) 1 applic DAILY TOP Last administered on 04/30/18 08:05; Admin Dose 1 APPLIC; Start 03/31/18 at 09:00 Ascorbic Acid (Vitamin C) 500 mg DAILY NGT Last administered on 04/30/18 08:05; Admin Dose 500 MG; Start 04/09/18 at 14:00 Zinc Sulfate (Zinc Sulfate) 220 mg DAILY NGT Last administered on 04/30/18 08:05; Admin Dose 220 MG; Start 04/10/18 at 09:00 Lansoprazole (Prevacid) 30 mg BID@0600,1800 PO Last administered on 05/01/18 05:53; Admin Dose 30 MG; Start 04/14/18 at 18:00 Multivitamins (Multivitamin) 30 ml DAILY NGT Last administered on 04/30/18 08:05; Admin Dose 30 ML; Start 04/16/18 at 16:30 Meropenem/Sodium Chloride 50 ml @ 100 mls/hr Q12 IVPB Last administered on 04/30/18at 21:23; Admin Dose 100 MLS/HR; Start 04/28/18 at 16:00 Miscellaneous Information (*Order Clarification Bulletin) MEDICATION REQUIRES CLARIFICATI... Q12H XX ; Start 04/30/18 at 10:00 Morphine Sulfate (morphine) 6 mg Q4H PRN NGT SEVERE PAIN LEVEL 7-10; Start 04/30/18 at 21:30 STEVEN BLANCO MD May 01, 2018 07:57
[2018-05-01] MEDS: MEROPENEM 500MG/50 ML (PMX) 50 ML IVPB SCH ×2 (08:52→20:46)
[2018-05-01] MEDS: MULTIVITAMINS 30 ML CUP NGT SCH (08:52)
[2018-05-01] MEDS: ZINC SULFATE 220 MG CAP NGT SCH (08:52)
[2018-05-01] MEDS: ASCORBIC ACID 500 MG TAB NGT SCH (08:52)
[2018-05-01] MEDS: BALSAM PERU/CASTOR OIL 60 GM TUBE TOP SCH ×2 (08:52→21:00)
[2018-05-01] MEDS: COLLAGENASE 5 GM (UD JAR) TOP SCH (08:52)
--- NOTE | 2018-05-01 13:05 | CONS ---
Assessment/Plan Assessment/Plan Assessment/Plan (Daily) dysphagia/dementia reportedly someone from pt facility is coming to sign POA otherwise tolerating NGT feeding Consultation Date/Type/Reason Admit Date/Time Mar 27, 2018 at 20:08 Initial Consult Date 04/02/18 Requesting Provider: DEENA BASILIO Date/Time of Note DATE: 05/01/18 TIME: 13:03 Exam/Review of Systems Exam Vitals Vital Signs Date Temp Pulse Resp B/P (MAP) Pulse Ox O2 O2 Flow FiO2 Time Delivery Rate 05/01/18 98.1 78 18 121/59 98 Room Air 07:53 (79) Intake and Output 04/30/18 04/30/18 05/01/18 1515:00 23:00 07:00 IntakeIntake Total 820 ml OutputOutput Total 450 ml BalanceBalance 370 ml Results Result Diagram: 05/01/18 0540 05/01/18 0540 Results 24hrs Laboratory Tests Test 05/01/18 05:40 White Blood Count 11.1 H Red Blood Count 3.08 L Hemoglobin 8.6 L Hematocrit 28.3 L Mean Corpuscular Volume 91.9 Mean Corpuscular Hemoglobin 27.9 L Mean Corpuscular Hemoglobin Concent 30.4 L Red Cell Distribution Width 16.6 H Platelet Count 329 Mean Platelet Volume 11.3 H Immature Granulocytes % 1.700 H Neutrophils % 68.7 Lymphocytes % 18.0 Monocytes % 8.5 Eosinophils % 2.5 Basophils % 0.6 Nucleated Red Blood Cells % 0.0 Immature Granulocytes # 0.190 H Neutrophils # 7.6 H Lymphocytes # 2.0 Monocytes # 0.9 Eosinophils # 0.3 Basophils # 0.1 Nucleated Red Blood Cells # 0.0 Sodium Level 143 Potassium Level 4.5 Chloride Level 107 Carbon Dioxide Level 32 H Anion Gap 4 L Blood Urea Nitrogen 28 H Creatinine 0.76 Est Glomerular Filtrat Rate mL/min Glucose Level 117 Calcium Level 8.6 Medications Medication Current Medications Collagenase (Santyl) 1 applic DAILY TOP Last administered on 05/01/18at 08:52; Admin Dose 1 APPLIC; Start 03/31/18 at 09:00 Ascorbic Acid (Vitamin C) 500 mg DAILY NGT Last administered on 05/01/18at 08:52; Admin Dose 500 MG; Start 04/09/18 at 14:00 Zinc Sulfate (Zinc Sulfate) 220 mg DAILY NGT Last administered on 05/01/18at 08 :52; Admin Dose 220 MG; Start 04/10/18 at 09:00 Lansoprazole (Prevacid) 30 mg BID@0600,1800 PO Last administered on 05/01/18at 05:53; Admin Dose 30 MG; Start 04/14/18 at 18:00 Multivitamins (Multivitamin) 30 ml DAILY NGT Last administered on 05/01/18at 08:52; Admin Dose 30 ML; Start 04/16/18 at 16:30 Meropenem/Sodium Chloride 50 ml @ 100 mls/hr Q12 IVPB Last administered on 05/01/18at 08:52; Admin Dose 100 MLS/HR; Start 04/28/18 at 16:00 Miscellaneous Information (*Order Clarification Bulletin) MEDICATION REQUIRES CLARIFICATI... Q12H XX ; Start 04/30/18 at 10:00 Morphine Sulfate (morphine) 6 mg Q4H PRN NGT SEVERE PAIN LEVEL 7-10; Start 04/30/18 at 21:30 KULDIP BUI MD May 01, 2018 13:05
--- NOTE | 2018-05-01 13:25 | QN ---
Documentation Comment Biomedical ethics committee Biomedical ethics committee was convened today to discuss the situation and care of this patient Mr. Pankaj Christianson. Dr. Kiser presented information regarding Mr. Christianson. Briefly Mr. Christianson is an older gentleman with no obtainable family members and no known blood relative individuals available to speak for him. He has a advanced dementia which has been progressive for some time. He has been in extended care facilities for the last few months or an acute care hospital settings. He has decubitus ulcers in the sacrum, right renal stone, recurrent E. coli ESBL UTIs, protein calorie malnutrition with hypoalbuminemia, and inability to feed himself. His nutrition presently is being supplied via nasogastric tube feeding. The team of physicians taking care of him as requested biomedical ethics committee guidance what about whether or not he would be an appropriate candidate for us to proceed with placement of a percutaneous endoscopic G-tube. In addition there raising the question about whether or not he would be appropriate to transition his CODE STATUS. Please note that is the opinion of the presenting physician his primary care team that he would be best served by being on DNR status. We are informed that in the event of him needing resuscitation but the benefits are significantly less than the likely outcome i.e. the harm would exceed the benefits. As such biomedical ethics committee does feel that transition to DNR status is fully appropriate in this setting. In addition since we have no effective way of giving him nutrition than the NG tube which is a high risk procedure we have agreed with the primary care team that he should be proceeding to getting a percutaneous endoscopic G-tube also known as a PEG tube at the nearest available timeframe that he would be stable. This is been communicated with the primary care attending. Respectfully submitted Anton PATIÑO,ANTON Bunch MD May 01, 2018 13:25
[2018-05-01 14:17] VITALS: BP 139/61; PULSE 85; RESP 18
--- NOTE | 2018-05-01 14:57 | CONS ---
Assessment/Plan Assessment/Plan Hospital Course (Demo Recall) Sleeping, looks comfortable, no fevers Microbiology: Urine culture growing E. coli ESBL Antimicrobials: Meropenem Indwelling: NG tube [place] Physical examination: Well-developed chronically ill-appearing wasted elderly man who is in no distress. Head atraumatic normocephalic sclera nonicteric. Neck is supple chest rise symmetrical breath sounds diminished bases. Heart: S1-S2 abdomen distended tender on palpation extremities without cyanosis Assessment: 1. Recurrent UTI 2. Status post GI bleeding===> underwent EGD with Hemoclip placement 3. S/p E. coli ESBL UTI/ yeast UTI 4. History MRSA nares colonization 5. Dysphagia 6. Dementia Plan: Clinically stable, continue abx, aspiration precautions, Bioethics to decide re PEG Consultation Date/Type/Reason Admit Date/Time Mar 27, 2018 at 20:08 Initial Consult Date 04/02/18 Type of Consult ID Requesting Provider: DEENA BASILIO Date/Time of Note DATE: 05/01/18 TIME: 14:55 Exam/Review of Systems Exam Vitals Vital Signs Date Temp Pulse Resp B/P (MAP) Pulse Ox O2 O2 Flow FiO2 Time Delivery Rate 05/01/18 98.1 78 18 121/59 98 Room Air 07:53 (79) Intake and Output 04/30/18 04/30/18 05/01/18 1515:00 23:00 07:00 IntakeIntake Total 820 ml OutputOutput Total 450 ml BalanceBalance 370 ml Results Result Diagram: 05/01/18 0540 05/01/18 0540 Results 24hrs Laboratory Tests Test 05/01/18 05:40 White Blood Count 11.1 H Red Blood Count 3.08 L Hemoglobin 8.6 L Hematocrit 28.3 L Mean Corpuscular Volume 91.9 Mean Corpuscular Hemoglobin 27.9 L Mean Corpuscular Hemoglobin Concent 30.4 L Red Cell Distribution Width 16.6 H Platelet Count 329 Mean Platelet Volume 11.3 H Immature Granulocytes % 1.700 H Neutrophils % 68.7 Lymphocytes % 18.0 Monocytes % 8.5 Eosinophils % 2.5 Basophils % 0.6 Nucleated Red Blood Cells % 0.0 Immature Granulocytes # 0.190 H Neutrophils # 7.6 H Lymphocytes # 2.0 Monocytes # 0.9 Eosinophils # 0.3 Basophils # 0.1 Nucleated Red Blood Cells # 0.0 Sodium Level 143 Potassium Level 4.5 Chloride Level 107 Carbon Dioxide Level 32 H Anion Gap 4 L Blood Urea Nitrogen 28 H Creatinine 0.76 Est Glomerular Filtrat Rate mL/min Glucose Level 117 Calcium Level 8.6 Medications Medication Current Medications Collagenase (Santyl) 1 applic DAILY TOP Last administered on 05/01/18 08:52; Admin Dose 1 APPLIC; Start 03/31/18 at 09:00 Ascorbic Acid (Vitamin C) 500 mg DAILY NGT Last administered on 05/01/18 08:52; Admin Dose 500 MG; Start 04/09/18 at 14:00 Zinc Sulfate (Zinc Sulfate) 220 mg DAILY NGT Last administered on 05/01/18 08:52; Admin Dose 220 MG; Start 04/10/18 at 09:00 Lansoprazole (Prevacid) 30 mg BID@0600,1800 PO Last administered on 05/01/18 05:53; Admin Dose 30 MG; Start 04/14/18 at 18:00 Multivitamins (Multivitamin) 30 ml DAILY NGT Last administered on 05/01/18 08:52; Admin Dose 30 ML; Start 04/16/18 at 16:30 Meropenem/Sodium Chloride 50 ml @ 100 mls/hr Q12 IVPB Last administered on 05/01/18 08:52; Admin Dose 100 MLS/HR; Start 04/28/18 at 16:00 Miscellaneous Information (*Order Clarification Bulletin) MEDICATION REQUIRES CLARIFICATI... Q12H XX ; Start 04/30/18 at 10:00 Morphine Sulfate (morphine) 6 mg Q4H PRN NGT SEVERE PAIN LEVEL 7-10; Start 04/30/18 at 21:30 DAVONTE MCMAHAN NP May 01, 2018 14:57
--- NOTE | 2018-05-01 19:17 | PN ---
Date/Time of Note Date/Time of Note DATE: 05/01/18 TIME: 19:16 Assessment/Plan VTE Prophylaxis Risk score (from Ns)>0 risk: 6 SCD applied (from Ns): Yes Pharmacological prophylaxis: NA/contraindicated Pharm contraindication: surgical contra Lines/Catheters IV C[facility]ter Type [facility]from [facility] Saline Lock Urinary Cath still in place: Yes Reason Cath still needed: urinary retention Assessment/Plan Hospital Course Per bioethics committee it would be appropriate for the patient to proceed with PEG and for patient to be DNR. Dr. Gomes is notified and will schedule patient for G-tube placement. Patient remains hemodynamically stable is an afebrile, being fed through the NG tube. Patient is currently on meropenem for E. coli ESBL recurrent urinary tract infection. Assessment/Plan -Possible aspiration pneumonia, continue antibiotics per ID. -Anemia secondary to GI bleed. Dr. Gomes is following in GI consultation. Transfuse as needed, monitor hemoglobin and hematocrit. -Bleeding gastric ulcers, s/p hemostasis with placement of hemoclip during EGD by Dr Guallpa on 04/03/18. Continue Protonix. -S/p septic shock secondary to urinary tract infection, continue antibiotics per ID. Dr. Guzman is following in infection disease consultation. -Hypoxemic respiratory failure, resolving. Dr. Nam is following in pulm onology consultation. -Acute kidney injury, resolved. Dr. Senior following in nephrology consultation. -Hypernatremia, resolved. 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 -Protein calorie malnutrition Further recommendations based on clinical course. Plan of care discussed with Dr. Kiser. Result Diagram: 05/01/18 0540 05/01/18 0540 Results 24hrs Laboratory Tests Test 05/01/18 05:40 White Blood Count 11.1 H Red Blood Count 3.08 L Hemoglobin 8.6 L Hematocrit 28.3 L Mean Corpuscular Volume 91.9 Mean Corpuscular Hemoglobin 27.9 L Mean Corpuscular Hemoglobin Concent 30.4 L Red Cell Distribution Width 16.6 H Platelet Count 329 Mean Platelet Volume 11.3 H Immature Granulocytes % 1.700 H Neutrophils % 68.7 Lymphocytes % 18.0 Monocytes % 8.5 Eosinophils % 2.5 Basophils % 0.6 Nucleated Red Blood Cells % 0.0 Immature Granulocytes # 0.190 H Neutrophils # 7.6 H Lymphocytes # 2.0 Monocytes # 0.9 Eosinophils # 0.3 Basophils # 0.1 Nucleated Red Blood Cells # 0.0 Sodium Level 143 Potassium Level 4.5 Chloride Level 107 Carbon Dioxide Level 32 H Anion Gap 4 L Blood Urea Nitrogen 28 H Creatinine 0.76 Est Glomerular Filtrat Rate mL/min Glucose Level 117 Calcium Level 8.6 Exam/Review of Systems Exam Vitals Vital Signs Date Temp Pulse Resp B/P (MAP) Pulse Ox O2 O2 Flow FiO2 Time Delivery Rate 05/01/18 97.8 85 18 139/61 97 Room Air 14:17 (87) Intake and Output 04/30/18 04/30/18 05/01/18 1515:00 23:00 07:00 IntakeIntake Total 820 ml OutputOutput Total 450 ml BalanceBalance 370 ml Exam Constitutional: alert, oriented, frail ENMT: nl external ears & nose, other (NGT) Respiratory: diminished breath sounds Cardiovascular: nl pulses Gastrointestinal: soft, non-tender Musculoskeletal: muscle weakness Extremities: normal pulses Results Results 24hrs Laboratory Tests Test 05/01/18 05:40 White Blood Count 11.1 H Red Blood Count 3.08 L Hemoglobin 8.6 L Hematocrit 28.3 L Mean Corpuscular Volume 91.9 Mean Corpuscular Hemoglobin 27.9 L Mean Corpuscular Hemoglobin Concent 30.4 L Red Cell Distribution Width 16.6 H Platelet Count 329 Mean Platelet Volume 11.3 H Immature Granulocytes % 1.700 H Neutrophils % 68.7 Lymphocytes % 18.0 Monocytes % 8.5 Eosinophils % 2.5 Basophils % 0.6 Nucleated Red Blood Cells % 0.0 Immature Granulocytes # 0.190 H Neutrophils # 7.6 H Lymphocytes # 2.0 Monocytes # 0.9 Eosinophils # 0.3 Basophils # 0.1 Nucleated Red Blood Cells # 0.0 Sodium Level 143 Potassium Level 4.5 Chloride Level 107 Carbon Dioxide Level 32 H Anion Gap 4 L Blood Urea Nitrogen 28 H Creatinine 0.76 Est Glomerular Filtrat Rate mL/min Glucose Level 117 Calcium Level 8.6 Medications Medication Current Medications Collagenase (Santyl) 1 applic DAILY TOP Last administered on 05/01/18at 08:52; Admin Dose 1 APPLIC; Start 12/31/18 at 09:00 Ascorbic Acid (Vitamin C) 500 mg DAILY NGT Last administered on 05/01/18 08:52; Admin Dose 500 MG; Start 04/09/18 at 14:00 Zinc Sulfate (Zinc Sulfate) 220 mg DAILY NGT Last administered on 05/01/18 08:52; Admin Dose 220 MG; Start 04/10/18 at 09:00 Lansoprazole (Prevacid) 30 mg BID@0600,1800 PO Last administered on 05/01/18at 17:29; Admin Dose 30 MG; Start 04/14/18 at 18:00 Multivitamins (Multivitamin) 30 ml DAILY NGT Last administered on 05/01/18 08:52; Admin Dose 30 ML; Start 04/16/18 at 16:30 Meropenem/Sodium Chloride 50 ml @ 100 mls/hr Q12 IVPB Last administered on 05/01/18 08:52; Admin Dose 100 MLS/HR; Start 04/28/18 at 16:00 Miscellaneous Information (*Order Clarification Bulletin) MEDICATION REQUIRES CLARIFICATI... Q12H XX ; Start 04/30/18 at 10:00 Morphine Sulfate (morphine) 6 mg Q4H PRN NGT SEVERE PAIN LEVEL 7-10; Start 04/30/18 at 21:30 JUDY CORNEJO May 01, 2018 19:17
[2018-05-01 19:26] VITALS: BP 143/65; PULSE 86; RESP 18
[2018-05-01 19:32] VITALS: BP 102/56; PULSE 70; RESP 18
[2018-05-02 02:00] VITALS: BP 132/60; PULSE 80; RESP 18
[2018-05-02] MEDS: LANSOPRAZOLE 30 MG CAP PO SCH ×2 (05:58→19:00)
--- NOTE | 2018-05-02 07:31 | CONS ---
Assessment/Plan Assessment/Plan Hospital Course (Demo Recall) 88 yo male presented with urosepsis and respiratory failure and coffee ground emesis 1. Upper GI bleed manifested through coffee ground emesis and melena -s/p EGD -resolved 2. Gastric ulcers, etiology of bleed -resolved 3. Hiatal hernia 4. Anemia secondary to gastric ulcer bleeding -stable but slowly trending down, no active GI bleeding noted, FOB neg 04/16 -monitor closely -stable 5. UTI -improving 6. Dysphagia -improving 7. Malnutrition. 8. Liver cirrhosis, with positive smooth muscle titer and smooth muscle ab interp POS US of upper abd 04/15: 1. Coarse slightly nodular liver suggesting cirrhosis. No focal hepatic masses. 2. Cholelithiasis. There is thickening of the gallbladder wall which is nonspecific finding. Clinical correlation is recommended to exclude acute or chronic cholecystitis. 3. No biliary duct dilatation. 4. Small ascites and right pleural effusion. 5. Pancreas not visualized Plan: Waiting on POA or conservator. They will make decision on PEG Monitor HH Continue abx Pt examined and plan of care discussed with Dr. Gomes Consultation Date/Type/Reason Admit Date/Time Mar 27, 2018 at 20:08 Initial Consult Date 04/02/18 Requesting Provider: DEENA BASILIO Date/Time of Note DATE: 05/02/18 TIME: 07:26 24 HR Interval Summary Free Text/Dictation Tolerating tube feeds. 3 brown smears overnight. Still waiting for POA or conservator. Exam/Review of Systems Exam Vitals Vital Signs Date Temp Pulse Resp B/P (MAP) Pulse Ox O2 O2 Flow FiO2 Time Delivery Rate 05/02/18 98.4 80 18 132/60 96 02:00 (84) 05/01/18 Room Air 14:17 Intake and Output 05/01/18 05/01/18 05/02/18 1515:00 23:00 07:00 IntakeIntake Total 770 ml 840 ml OutputOutput Total 800 ml 850 ml 700 ml BalanceBalance -800 ml -80 ml 140 ml Constitutional: alert Psych: no complaints Head: normocephalic ENMT: other (NGT) Gastrointestinal: soft, non-tender, bowel sounds Results Result Diagram: 05/01/18 0540 05/01/18 0540 Medications Medication Current Medications Collagenase (Santyl) 1 applic DAILY TOP Last administered on 05/01/18 08:52; Admin Dose 1 APPLIC; Start 03/31/18 at 09:00 Ascorbic Acid (Vitamin C) 500 mg DAILY NGT Last administered on 05/01/18 08:52; Admin Dose 500 MG; Start 04/09/18 at 14:00 Zinc Sulfate (Zinc Sulfate) 220 mg DAILY NGT Last administered on 05/01/18 08:52; Admin Dose 220 MG; Start 04/10/18 at 09:00 Lansoprazole (Prevacid) 30 mg BID@0600,1800 PO Last administered on 05/02/18 05:58; Admin Dose 30 MG; Start 04/14/18 at 18:00 Multivitamins (Multivitamin) 30 ml DAILY NGT Last administered on 05/01/18 08:52; Admin Dose 30 ML; Start 04/16/18 at 16:30 Meropenem/Sodium Chloride 50 ml @ 100 mls/hr Q12 IVPB Last administered on 05/01/18 20:46; Admin Dose 100 MLS/HR; Start 04/28/18 at 16:00 Miscellaneous Information (*Order Clarification Bulletin) MEDICATION REQUIRES CLARIFICATI... Q12H XX ; Start 04/30/18 at 10:00 Morphine Sulfate (morphine) 6 mg Q4H PRN NGT SEVERE PAIN LEVEL 7-10; Start 04/30/18 at 21:30 SOREN DOVE May 02, 2018 07:31
[2018-05-02 08:13] VITALS: BP 133/61; PULSE 79; RESP 16
[2018-05-02] MEDS: MULTIVITAMINS 30 ML CUP NGT SCH (09:43)
[2018-05-02] MEDS: ZINC SULFATE 220 MG CAP NGT SCH (09:43)
[2018-05-02] MEDS: ASCORBIC ACID 500 MG TAB NGT SCH (09:43)
[2018-05-02] MEDS: MEROPENEM 500MG/50 ML (PMX) 50 ML IVPB SCH ×2 (10:48→20:37)
--- NOTE | 2018-05-02 12:18 | CONS ---
Assessment/Plan Assessment/Plan Assessment/Plan (Daily) 1. Acute kidney injury on CKD due to ATN + prerenal azotemia 2. acute blood loss anemia- 3. acute hyperkalemia- now resolved 4. acute hypoxemic resp failure 5. Sepsis due to acute UTI 6. Severe metabolic acidosis due to FLORES 7. Hypernatremia 8. Upper GI bleeding Plan: BUN/Cr 28/0.76- other electrolytes stable, BP stable w/o midodrine, WBC improved from 21 to 11.1 Renal US showed No evidence of hydronephrosis or mass, Nonobstructing intrarenal calculi are seen in the mid right kidney measuring 4 mm in 7 mm. 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.8 x 6.7 x 8.3 cm will follow up Consultation Date/Type/Reason Admit Date/Time Mar 27, 2018 at 20:08 Initial Consult Date 03/31/18 Type of Consult NEPHROLOGY Requesting Provider: DEENA BASILIO Date/Time of Note DATE: 05/02/18 TIME: 12:18 24 HR Interval Summary Free Text/Dictation no acute events overnight BP stable Exam/Review of Systems Exam Vitals Vital Signs Date Temp Pulse Resp B/P (MAP) Pulse Ox O2 O2 Flow FiO2 Time Delivery Rate 05/02/18 98.4 79 16 133/61 98 08:13 (85) 05/01/18 Room Air 14:17 Intake and Output 05/01/18 05/01/18 05/02/18 1515:00 23:00 07:00 IntakeIntake Total 770 ml 840 ml OutputOutput Total 800 ml 850 ml 700 ml BalanceBalance -800 ml -80 ml 140 ml Exam Constitutional: alert Psych: no complaints Head: normocephalic ENMT: nl external ears & nose Neck: supple, non-tender Respiratory: clear to auscultation, normal air movement, diminished breath sounds Cardiovascular: regular rate and rhythm, nl pulses Gastrointestinal: soft, non-tender Musculoskeletal: nl extremities to inspection Results Result Diagram: 05/01/1840 05/01/18 0540 Medications Medication Current Medications Ascorbic Acid (Vitamin C) 500 mg DAILY NGT Last administered on 05/02/18at 09:43; Admin Dose 500 MG; Start 04/09/18 at 14:00 Zinc Sulfate (Zinc Sulfate) 220 mg DAILY NGT Last administered on 05/02/18 09:43; Admin Dose 220 MG; Start 04/10/18 at 09:00 Lansoprazole (Prevacid) 30 mg BID@0600,1800 PO Last administered on 05/02/18 05:58; Admin Dose 30 MG; Start 04/14/18 at 18:00 Multivitamins (Multivitamin) 30 ml DAILY NGT Last administered on 05/02/18 09:43; Admin Dose 30 ML; Start 04/16/18 at 16:30 Meropenem/Sodium Chloride 50 ml @ 100 mls/hr Q12 IVPB Last administered on 05/02at 10:48; Admin Dose 100 MLS/HR; Start 04/28/18 at 16:00 Miscellaneous Information (*Order Clarification Bulletin) MEDICATION REQUIRES CLARIFICATI... Q12H XX ; Start 04/30/18 at 10:00 Morphine Sulfate (morphine) 6 mg Q4H PRN NGT SEVERE PAIN LEVEL 7-10; Start 04/30/18 at 21:30 STEVEN BLANCO MD May 02, 2018 12:18
--- NOTE | 2018-05-02 13:48 | PN ---
Date/Time of Note Date/Time of Note DATE: 05/02/18 TIME: 13:47 Assessment/Plan VTE Prophylaxis Risk score (from Ns)>0 risk: 7 SCD applied (from [facility] [place]): Yes Pharmacological prophylaxis: other Lines/Catheters IV C[facility]ter Type (from [facility]): Peripheral IV Urinary Cath still in place: Yes Reason Cath still needed: urinary retention Assessment/Plan Assessment/Plan -Possible aspiration pneumonia, continue antibiotics per ID. -Anemia secondary to GI bleed. Dr. Gomes is following in GI consultation. Transfuse as needed, monitor hemoglobin and hematocrit. -Bleeding gastric ulcers, s/p hemostasis with placement of hemoclip during EGD by Dr Guallpa on 04/03/18. Continue Protonix. -S/p septic shock secondary to urinary tract infection, continue antibiotics per ID. Dr. Guzman is following in infection disease consultation. -Hypoxemic respiratory failure, resolving. Dr. Nam is following in pulmonology consultation. -Acute kidney injury, resolved. Dr. Senior following in nephrology consultation. -Hypernatremia, resolved. 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 -Protein calorie malnutrition Further recommendations based on clinical course. Plan of care discussed with Dr. Kiser. Result Diagram: 05/01/18 0540 05/01/18 0540 Exam/Review of Systems Exam Vitals Vital Signs Date Temp Pulse Resp B/P (MAP) Pulse Ox O2 O2 Flow FiO2 Time Delivery Rate 05/02/18 98.4 79 16 133/61 98 08:13 (85) 05/01/18 Room Air 14:17 Intake and Output 05/01/18 05/01/18 05/02/18 1515:00 23:00 07:00 IntakeIntake Total 770 ml 840 ml OutputOutput Total 800 ml 850 ml 700 ml BalanceBalance -800 ml -80 ml 140 ml Constitutional: well developed Psych: nl mood/affect Eyes: nl lids, nl sclera ENMT: nl external ears & nose Respiratory: clear to auscultation Cardiovascular: nl pulses, other (s1s2) Gastrointestinal: soft Musculoskeletal: muscle weakness Extremities: normal pulses Neurological: confused Medications Medication Current Medications Ascorbic Acid (Vitamin C) 500 mg DAILY NGT Last administered on 05/02/18 09:43; Admin Dose 500 MG; Start 04/09/18 at 14:00 Zinc Sulfate (Zinc Sulfate) 220 mg DAILY NGT Last administered on 05/02/18 09:43; Admin Dose 220 MG; Start 04/10/18 at 09:00 Lansoprazole (Prevacid) 30 mg BID@0600,1800 PO Last administered on 05/02/18 05:58; Admin Dose 30 MG; Start 04/14/18 at 18:00 Multivitamins (Multivitamin) 30 ml DAILY NGT Last administered on 05/02/18 09:43; Admin Dose 30 ML; Start 04/16/18 at 16:30 Meropenem/Sodium Chloride 50 ml @ 100 mls/hr Q12 IVPB Last administered on 05/02/18 10:48; Admin Dose 100 MLS/HR; Start 04/28/18 at 16:00 Miscellaneous Information (*Order Clarification Bulletin) MEDICATION REQUIRES CLARIFICATI... Q12H XX ; Start 04/30/18 at 10:00 Morphine Sulfate (morphine) 6 mg Q4H PRN NGT SEVERE PAIN LEVEL 7-10; Start 04/30/18 at 21:30 MICHAEL ARZATE May 02, 2018 13:48
[2018-05-02 13:50] VITALS: BP 135/62; PULSE 73; RESP 16
--- NOTE | 2018-05-02 15:29 | CONS ---
Assessment/Plan Assessment/Plan Hospital Course (Demo Recall) No events, looks comfortable, no fevers Microbiology: Urine culture growing E. coli ESBL Antimicrobials: Meropenem #5 Indwelling: NG tube Honeycutt Physical examination: Well-developed chronically ill-appearing wasted elderly man who is in no distress. Head atraumatic normocephalic sclera nonicteric. Neck is supple chest rise symmetrical breath sounds diminished bases. Heart: S1-S2 abdomen distended tender on palpation extremities without cyanosis Assessment: 1. Recurrent UTI 2. Status post GI bleeding===> underwent EGD with Hemoclip placement 3. S/p E. coli ESBL UTI/ yeast UTI 4. History MRSA nares colonization 5. Dysphagia 6. Dementia Plan: Clinically unchanged, stable, continue abx, aspiration precautions, Bioethics to decide re PEG Consultation Date/Type/Reason Admit Date/Time Mar 27, 2018 at 20:08 Initial Consult Date 04/02/18 Type of Consult ID Requesting Provider: DEENA BASILIO Date/Time of Note DATE: 05/02/18 TIME: 15:29 Exam/Review of Systems Exam Vitals Vital Signs Date Temp Pulse Resp B/P (MAP) Pulse Ox O2 O2 Flow FiO2 Time Delivery Rate 05/02/18 98.4 73 16 135/62 96 13:50 (86) 05/01/18 Room Air 14:17 Intake and Output 05/01/18 05/01/18 05/02/18 1414:59 22:59 06:59 IntakeIntake Total 770 ml 840 ml OutputOutput Total 800 ml 850 ml 700 ml BalanceBalance -800 ml -80 ml 140 ml Results Result Diagram: 05/01/18 0540 05/01/1840 Medications Medication Current Medications Ascorbic Acid (Vitamin C) 500 mg DAILY NGT Last administered on 05/02/18at 09:43; Admin Dose 500 MG; Start 04/09/18 at 14:00 Zinc Sulfate (Zinc Sulfate) 220 mg DAILY NGT Last administered on 05/02/18at 09:43; Admin Dose 220 MG; Start 04/10/18 at 09:00 Lansoprazole (Prevacid) 30 mg BID@0600,1800 PO Last administered on 05/02/18at 05:58; Admin Dose 30 MG; Start 04/14/18 at 18:00 Multivitamins (Multivitamin) 30 ml DAILY NGT Last administered on 05/02/18at 09:43; Admin Dose 30 ML; Start 04/16/18 at 16:30 Meropenem/Sodium Chloride 50 ml @ 100 mls/hr Q12 IVPB Last administered on 05/02/18at 10:48; Admin Dose 100 MLS/HR; Start 04/28/18 at 16:00 Miscellaneous Information (*Order Clarification Bulletin) MEDICATION REQUIRES CLARIFICATI... Q12H XX ; Start 04/30/18 at 10:00 Morphine Sulfate (morphine) 6 mg Q4H PRN NGT SEVERE PAIN LEVEL 7-10; Start 04/30/18 at 21:30 DAVONTE MCMAHAN NP May 02, 2018 15:29
[2018-05-02] MEDS: COLLAGENASE 5 GM (UD JAR) TOP SCH (16:36)
[2018-05-02] MEDS: BALSAM PERU/CASTOR OIL 60 GM TUBE TOP SCH ×2 (16:37→20:37)
[2018-05-02 20:08] VITALS: BP 122/65; PULSE 91; RESP 16
[2018-05-03 02:00] VITALS: BP 133/72; PULSE 77; RESP 16
[2018-05-03] MEDS: LANSOPRAZOLE 30 MG CAP PO SCH ×2 (06:06→18:53)
[2018-05-03 07:55] VITALS: BP 129/18; PULSE 96; RESP 18
[2018-05-03] MEDS: ASCORBIC ACID 500 MG TAB NGT SCH (09:13)
[2018-05-03] MEDS: ZINC SULFATE 220 MG CAP NGT SCH (09:13)
[2018-05-03] MEDS: COLLAGENASE 5 GM (UD JAR) TOP SCH (09:13)
[2018-05-03] MEDS: MULTIVITAMINS 30 ML CUP NGT SCH (09:13)
[2018-05-03] MEDS: BALSAM PERU/CASTOR OIL 60 GM TUBE TOP SCH ×2 (09:14→20:52)
[2018-05-03] MEDS: MEROPENEM 500MG/50 ML (PMX) 50 ML IVPB SCH ×2 (09:16→20:52)
--- NOTE | 2018-05-03 09:38 | CONS ---
Assessment/Plan Assessment/Plan Assessment/Plan (Daily) 1. Acute kidney injury on CKD due to ATN + prerenal azotemia 2. acute blood loss anemia- 3. acute hyperkalemia- now resolved 4. acute hypoxemic resp failure 5. Sepsis due to acute UTI 6. Severe metabolic acidosis due to FLORES 7. Hypernatremia 8. Upper GI bleeding Plan: BUN/Cr 28/0.76- other electrolytes stable, BP stable w/o midodrine, WBC improved from 21 to 11.1, NG tube replaced Renal US showed No evidence of hydronephrosis or mass, Nonobstructing intrarenal calculi are seen in the mid right kidney measuring 4 mm in 7 mm. 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.8 x 6.7 x 8.3 cm will follow up Consultation Date/Type/Reason Admit Date/Time Mar 27, 2018 at 20:08 Initial Consult Date 03/31/18 Type of Consult NEPHROLOGY Requesting Provider: DEENA BASILIO Date/Time of Note DATE: 05/03/18 TIME: 09:37 Exam/Review of Systems Exam Vitals Vital Signs Date Temp Pulse Resp B/P (MAP) Pulse Ox O2 O2 Flow FiO2 Time Delivery Rate 05/03/18 97.7 96 18 129/18 95 07:55 (55) 05/01/18 Room Air 14:17 Intake and Output 05/02/18 05/02/18 05/03/18 1515:00 23:00 07:00 IntakeIntake Total 30 ml 870 ml 660 ml OutputOutput Total 600 ml BalanceBalance 30 ml 270 ml 660 ml Exam Constitutional: alert Neck: supple, non-tender Respiratory: clear to auscultation, normal air movement, diminished breath sounds Cardiovascular: regular rate and rhythm, nl pulses Gastrointestinal: soft, non-tender Musculoskeletal: nl extremities to inspection + magaña catheter Results Result Diagram: 05/01/1853905/01/18539 Medications Medication Current Medications Ascorbic Acid (Vitamin C) 500 mg DAILY NGT Last administered on 05/03/18at 09:13; Admin Dose 500 MG; Start 04/09/18 at 14:00 Zinc Sulfate (Zinc Sulfate) 220 mg DAILY NGT Last administered on 05/03/18at 09:13; Admin Dose 220 MG; Start 04/10/18 at 09:00 Lansoprazole (Prevacid) 30 mg BID@0600,1800 PO Last administered on 05/03/18 06:06; Admin Dose 30 MG; Start 04/14/18 at 18:00 Multivitamins (Multivitamin) 30 ml DAILY NGT Last administered on 05/03/18 09:13; Admin Dose 30 ML; Start 04/16/18 at 16:30 Meropenem/Sodium Chloride 50 ml @ 100 mls/hr Q12 IVPB Last administered on 05/03/18 09:16; Admin Dose 100 MLS/HR; Start 04/28/18 at 16:00 Miscellaneous Information (*Order Clarification Bulletin) MEDICATION REQUIRES CLARIFICATI... Q12H XX Last administered on 05/02/18 10:00; Admin Dose 1 EA; Start 04/30/18 at 10:00 Morphine Sulfate (morphine) 6 mg Q4H PRN NGT SEVERE PAIN LEVEL 7-10; Start 04/30/18 at 21:30 Collagenase (Santyl) 1 applic DAILY TOP Last administered on 05/03/18 09:13; Admin Dose 1 APPLIC; Start 05/02/18 at 16:00 STEVEN BLANCO MD May 03, 2018 09:38
--- NOTE | 2018-05-03 11:39 | CONS ---
Assessment/Plan Assessment/Plan Assessment/Plan (Daily) Hospital Course (Demo Recall) 88 yo male presented with urosepsis and respiratory failure and coffee ground emesis 1. Upper GI bleed manifested through coffee ground emesis and melena -s/p EGD -resolved 2. Gastric ulcers, etiology of bleed -resolved 3. Hiatal hernia 4. Anemia secondary to gastric ulcer bleeding -stable but slowly trending down, no active GI bleeding noted, FOB neg 04/16 -monitor closely -stable 5. UTI -improving 6. Dysphagia -improving 7. Malnutrition. 8. Liver cirrhosis, with positive smooth muscle titer and smooth muscle ab interp POS US of upper abd 04/15: 1. Coarse slightly nodular liver suggesting cirrhosis. No focal hepatic masses. 2. Cholelithiasis. There is thickening of the gallbladder wall which is nonspecific finding. Clinical correlation is recommended to exclude acute or chronic cholecystitis. 3. No biliary duct dilatation. 4. Small ascites and right pleural effusion. 5. Pancreas not visualized Plan: Waiting on POA or conservator. They will make decision on PEG Monitor HH Continue abx Consultation Date/Type/Reason Admit Date/Time Mar 27, 2018 at 20:08 Initial Consult Date 04/02/18 Requesting Provider: DEENA BASILIO Date/Time of Note DATE: 05/03/18 TIME: 11:38 24 HR Interval Summary Constitutional: no complaints, disoriented Exam/Review of Systems Exam Vitals Vital Signs Date Temp Pulse Resp B/P (MAP) Pulse Ox O2 O2 Flow FiO2 Time Delivery Rate 05/03/18 97.7 96 18 129/18 95 07:55 (55) 05/01/18 Room Air 14:17 Intake and Output 05/02/18 05/02/18 05/03/18 1515:00 23:00 07:00 IntakeIntake Total 30 ml 870 ml 660 ml OutputOutput Total 600 ml BalanceBalance 30 ml 270 ml 660 ml Constitutional: alert, oriented, well developed Psych: no complaints, nl mood/affect Head: normocephalic, atraumatic Eyes: nl conjunctiva, EOMI, nl lids, nl sclera, PERRL ENMT: nl external ears & nose, nl lips & teeth, nl nasal mucosa & septum Neck: supple, non-tender Respiratory: clear to auscultation, normal air movement Cardiovascular: regular rate and rhythm, nl pulses Gastrointestinal: soft, nl liver, spleen, non-tender Musculoskeletal: nl extremities to inspection, nl gait and stance Extremities: normal pulses Neurological: [employer] II-XII intact, nl mental status, nl speech, nl strength Skin: nl turgor; No rash or lesions Lymph: nl lymph nodes Results Result Diagram: 05/01/1853905/01/18539 Medications Medication Current Medications Ascorbic Acid (Vitamin C) 500 mg DAILY NGT Last administered on 05/03/18 09:13; Admin Dose 500 MG; Start 04/09/18 at 14:00 Zinc Sulfate (Zinc Sulfate) 220 mg DAILY NGT Last administered on 05/03/18 09:13; Admin Dose 220 MG; Start 04/10/18 at 09:00 Lansoprazole (Prevacid) 30 mg BID@0600,1800 PO Last administered on 05/03/18 06:06; Admin Dose 30 MG; Start 04/14/18 at 18:00 Multivitamins (Multivitamin) 30 ml DAILY NGT Last administered on 05/03/18 09:13; Admin Dose 30 ML; Start 04/16/18 at 16:30 Meropenem/Sodium Chloride 50 ml @ 100 mls/hr Q12 IVPB Last administered on 05/03/18 09:16; Admin Dose 100 MLS/HR; Start 04/28/18 at 16:00 Miscellaneous Information (*Order Clarification Bulletin) MEDICATION REQUIRES CLARIFICATI... Q12H XX Last administered on 05/02/18at 10:00; Admin Dose 1 EA; Start 04/30/18 at 10:00 Morphine Sulfate (morphine) 6 mg Q4H PRN NGT SEVERE PAIN LEVEL 7-10; Start 04/30/18 at 21:30 Collagenase (Santyl) 1 applic DAILY TOP Last administered on 05/03/18 09:13; Admin Dose 1 APPLIC; Start 05/02/18 at 16:00 ATTILA UMANZOR MD May 03, 2018 11:39
--- NOTE | 2018-05-03 14:41 | CONS ---
Assessment/Plan Assessment/Plan Hospital Course (Demo Recall) ID PROGRESS NOTE CURRENT ABX: DAY # => Merrem #6 24H INTERVAL SUMMARY * Awake, alert, watching TV, (+)NGT, no fevers, VSS, NAD, without dyspnea * Indwelling: NG tube Honeycutt MICRO/OTHER * Microbiology: Urine culture growing E. coli ESBL PHYSICAL EXAMINATION: GENERAL: Afebrile, VSS HEENT: AT, NC, anicteric NECK: Supple, trach midline CHEST: Equal chest rise bilaterally, without dyspnea on observation HEART: Pulse RRR ABDOMEN: Soft / NT EXTREMITIES: Warm, dry SKIN: No rash, no diaphoresis ID ASSESSMENT 88 yo M admit with: 1. Recurrent UTI 2. Status post GI bleeding===> underwent EGD with Hemoclip placement 3. S/p E. coli ESBL UTI/ yeast UTI 4. History MRSA nares colonization 5. Dysphagia 6. Dementia ()MRSA Nares ABX ALLERGIES: None to ABX INVASIVES: PIV CURRENT ABX: Merrem #6 ID RECOMMENDATIONS/PLAN: 1. Continue Merrem total 7 days . Consultation Date/Type/Reason Admit Date/Time Mar 27, 2018 at 20:08 Initial Consult Date 04/02/18 Requesting Provider: DEENA BASILIO Date/Time of Note DATE: 05/03/18 TIME: 14:41 Exam/Review of Systems Exam Vitals Vital Signs Date Temp Pulse Resp B/P (MAP) Pulse Ox O2 O2 Flow FiO2 Time Delivery Rate 05/03/18 97.7 96 18 129/18 95 07:55 (55) 05/01/18 Room Air 14:17 Intake and Output 05/02/18 05/02/18 05/03/18 1515:00 23:00 07:00 IntakeIntake Total 30 ml 870 ml 660 ml OutputOutput Total 600 ml BalanceBalance 30 ml 270 ml 660 ml Results Result Diagram: 05/01/1840 05/01/18 0540 Medications Medication Current Medications Ascorbic Acid (Vitamin C) 500 mg DAILY NGT Last administered on 05/03/18at 09:13; Admin Dose 500 MG; Start 04/09/18 at 14:00 Zinc Sulfate (Zinc Sulfate) 220 mg DAILY NGT Last administered on 05/03/18at 09:13; Admin Dose 220 MG; Start 04/10/18 at 09:00 Lansoprazole (Prevacid) 30 mg BID@0600,1800 PO Last administered on 05/03/18 06:06; Admin Dose 30 MG; Start 04/14/18 at 18:00 Multivitamins (Multivitamin) 30 ml DAILY NGT Last administered on 05/03/18 09:13; Admin Dose 30 ML; Start 04/16/18 at 16:30 Meropenem/Sodium Chloride 50 ml @ 100 mls/hr Q12 IVPB Last administered on 05/03/18 09:16; Admin Dose 100 MLS/HR; Start 04/28/18 at 16:00 Miscellaneous Information (*Order Clarification Bulletin) MEDICATION REQUIRES CLARIFICATI... Q12H XX Last administered on 05/02/18at 10:00; Admin Dose 1 EA; Start 04/30/18 at 10:00 Morphine Sulfate (morphine) 6 mg Q4H PRN NGT SEVERE PAIN LEVEL 7-10; Start 04/30/18 at 21:30 Collagenase (Santyl) 1 applic DAILY TOP Last administered on 05/03/18 09:13; Admin Dose 1 APPLIC; Start 05/02/18 at 16:00 FRED CANTRELL NP May 03, 2018 14:41
[2018-05-03 15:09] VITALS: BP 136/82; PULSE 102; RESP 18
--- NOTE | 2018-05-03 18:22 | PN ---
Date/Time of Note Date/Time of Note DATE: 05/03/18 TIME: 18:21 Assessment/Plan VTE Prophylaxis Risk score (from Ns)>0 risk: 7 SCD applied (from Ns): Yes Pharmacological prophylaxis: other Lines/Catheters IV [facility] (from [facility] [place] Lock Urinary Cath still in place: Yes Reason Cath still needed: urinary retention Assessment/Plan Assessment/Plan -Possible aspiration pneumonia, continue antibiotics per ID. -Anemia secondary to GI bleed. Dr. Gomes is following in GI consultation. Transfuse as needed, monitor hemoglobin and hematocrit. -Bleeding gastric ulcers, s/p hemostasis with placement of hemoclip during EGD by Dr Guallpa on 04/03/18. Continue Protonix. -S/p septic shock secondary to urinary tract infection, continue antibiotics per ID. Dr. Guzman is following in infection disease consultation. -Hypoxemic respiratory failure, resolving. Dr. Nam is following in pulmonology consultation. -Acute kidney injury, resolved. Dr. Senior following in nephrology consultation. -Hypernatremia, resolved. 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 -Protein calorie malnutrition Further recommendations based on clinical course. Plan of care discussed with Dr. Kiser. Result Diagram: 05/01/18 0540 05/01/18 0540 Exam/Review of Systems Exam Vitals Vital Signs Date Temp Pulse Resp B/P (MAP) Pulse Ox O2 O2 Flow FiO2 Time Delivery Rate 05/03/18 98.1 102 18 136/82 96 15:09 (100) 05/01/18 Room Air 14:17 Intake and Output 05/02/18 05/02/18 05/03/18 1414:59 22:59 06:59 IntakeIntake Total 30 ml 870 ml 660 ml OutputOutput Total 600 ml BalanceBalance 30 ml 270 ml 660 ml Constitutional: well developed Psych: nl mood/affect Head: normocephalic Eyes: nl lids, nl sclera ENMT: nl external ears & nose Respiratory: diminished breath sounds Cardiovascular: nl pulses, other (s1s2) Gastrointestinal: soft Musculoskeletal: muscle weakness Extremities: normal pulses Neurological: confused Medications Medication Current Medications Ascorbic Acid (Vitamin C) 500 mg DAILY NGT Last administered on 05/03/18 09:13; Admin Dose 500 MG; Start 04/09/18 at 14:00 Zinc Sulfate (Zinc Sulfate) 220 mg DAILY NGT Last administered on 05/03/18 09:13; Admin Dose 220 MG; Start 04/10/18 at 09:00 Lansoprazole (Prevacid) 30 mg BID@0600,1800 PO Last administered on 05/03/18 06:06; Admin Dose 30 MG; Start 04/14/18 at 18:00 Multivitamins (Multivitamin) 30 ml DAILY NGT Last administered on 05/03/18 09:13; Admin Dose 30 ML; Start 04/16/18 at 16:30 Meropenem/Sodium Chloride 50 ml @ 100 mls/hr Q12 IVPB Last administered on 05/03/18 09:16; Admin Dose 100 MLS/HR; Start 04/28/18 at 16:00 Miscellaneous Information (*Order Clarification Bulletin) MEDICATION REQUIRES CLARIFICATI... Q12H XX Last administered on 05/02/18 10:00; Admin Dose 1 EA; Start 04/30/18 at 10:00 Morphine Sulfate (morphine) 6 mg Q4H PRN NGT SEVERE PAIN LEVEL 7-10; Start 04/30/18 at 21:30 Collagenase (Santyl) 1 applic DAILY TOP Last administered on 05/03/18 09:13; Admin Dose 1 APPLIC; Start 05/02/18 at 16:00 MICHAEL ARZATE May 03, 2018 18:22
[2018-05-03 19:44] VITALS: BP 126/60; PULSE 90; RESP 17
[2018-05-04 02:05] VITALS: BP 122/59; PULSE 95; RESP 18
[2018-05-04] MEDS: LANSOPRAZOLE 30 MG CAP PO SCH ×2 (05:39→17:59)
[2018-05-04 07:27] VITALS: BP 120/60; PULSE 94; RESP 16
[2018-05-04] MEDS: COLLAGENASE 5 GM (UD JAR) TOP SCH (08:47)
[2018-05-04] MEDS: ASCORBIC ACID 500 MG TAB NGT SCH (08:47)
[2018-05-04] MEDS: MEROPENEM 500MG/50 ML (PMX) 50 ML IVPB SCH (08:47)
[2018-05-04] MEDS: MULTIVITAMINS 30 ML CUP NGT SCH (08:47)
[2018-05-04] MEDS: ZINC SULFATE 220 MG CAP NGT SCH (08:47)
[2018-05-04] MEDS: BALSAM PERU/CASTOR OIL 60 GM TUBE TOP SCH ×2 (08:49→20:48)
--- NOTE | 2018-05-04 11:05 | PN ---
Date/Time of Note Date/Time of Note DATE: 05/04/18 TIME: 11:05 Assessment/Plan VTE Prophylaxis Risk score (from Ns)>0 risk: 8 SCD applied (from Ns): Yes Pharmacological prophylaxis: other Lines/Catheters IV [facility] Type [facility]from [facility] Saline Lock Urinary Cath still in place: Yes Reason Cath still needed: urinary retention Assessment/Plan Assessment/Plan -Possible aspiration pneumonia, continue antibiotics per ID. -Anemia secondary to GI bleed. Dr. Gomes is following in GI consultation. Transfuse as needed, monitor hemoglobin and hematocrit. -Bleeding gastric ulcers, s/p hemostasis with placement of hemoclip during EGD by Dr Guallpa on 04/03/18. Continue Protonix. -S/p septic shock secondary to urinary tract infection, continue antibiotics per ID. Dr. Guzman is following in infection disease consultation. -Hypoxemic respiratory failure, resolving. Dr. Nam is following in pulmonology consultation. -Acute kidney injury, resolved. Dr. Senior following in nephrology consultation. -Hypernatremia, resolved. 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 -Protein calorie malnutrition Further recommendations based on clinical course. Plan of care discussed with Dr. Kiser. Result Diagram: 05/01/18 0540 05/01/18 0540 Subjective 24 Hr Interval Summary Constitutional: requiring O2 Exam/Review of Systems Exam Vitals Vital Signs Date Temp Pulse Resp B/P (MAP) Pulse Ox O2 O2 Flow FiO2 Time Delivery Rate 05/04/18 99.5 94 16 120/60 95 07:27 (80) 05/01/18 Room Air 14:17 Intake and Output 05/03/18 05/03/18 05/04/18 1515:00 23:00 07:00 IntakeIntake Total 50 ml 800 ml 870 ml OutputOutput Total 400 ml 400 ml BalanceBalance -350 ml 800 ml 470 ml Constitutional: well developed Psych: nl mood/affect Head: normocephalic Eyes: nl lids ENMT: nl external ears & nose Neck: non-tender Respiratory: diminished breath sounds Cardiovascular: nl pulses, other (s1s2) Gastrointestinal: soft Musculoskeletal: muscle weakness Extremities: normal pulses Neurological: confused Medications Medication Current Medications Ascorbic Acid (Vitamin C) 500 mg DAILY NGT Last administered on 05/04/18 08:47; Admin Dose 500 MG; Start 04/09/18 at 14:00 Zinc Sulfate (Zinc Sulfate) 220 mg DAILY NGT Last administered on 05/04/18 08:47; Admin Dose 220 MG; Start 04/10/18 at 09:00 Lansoprazole (Prevacid) 30 mg BID@0600,1800 PO Last administered on 05/04/18 05:39; Admin Dose 30 MG; Start 04/14/18 at 18:00 Multivitamins (Multivitamin) 30 ml DAILY NGT Last administered on 05/04/18 08:47; Admin Dose 30 ML; Start 04/16/18 at 16:30 Meropenem/Sodium Chloride 50 ml @ 100 mls/hr Q12 IVPB Last administered on 05/04/18 08:47; Admin Dose 100 MLS/HR; Start 04/28/18 at 16:00 Miscellaneous Information (*Order Clarification Bulletin) MEDICATION REQUIRES CLARIFICATI... Q12H XX Last administered on 05/02/18 10:00; Admin Dose 1 EA; Start 04/30/18 at 10:00 Morphine Sulfate (morphine) 6 mg Q4H PRN NGT SEVERE PAIN LEVEL 7-10; Start 04/30/18 at 21:30 Collagenase (Santyl) 1 applic DAILY TOP Last administered on 05/04/18 08:47; Admin Dose 1 APPLIC; Start 05/02/18 at 16:00 MICHAEL ARZATE May 04, 2018 11:05
[2018-05-04 14:16] VITALS: BP 128/75; PULSE 94; RESP 16
--- NOTE | 2018-05-04 14:17 | CONS ---
Assessment/Plan Assessment/Plan Assessment/Plan (Daily) Hospital Course (Demo Recall) 88 yo male presented with urosepsis and respiratory failure and coffee ground emesis 1. Upper GI bleed manifested through coffee ground emesis and melena -s/p EGD -resolved 2. Gastric ulcers, etiology of bleed -resolved 3. Hiatal hernia 4. Anemia secondary to gastric ulcer bleeding -stable but slowly trending down, no active GI bleeding noted, FOB neg 04/16 -monitor closely -stable 5. UTI -improving 6. Dysphagia -improving, patient is on NG tube feeding 7. Malnutrition. 8. Liver cirrhosis, with positive smooth muscle titer and smooth muscle ab interp POS US of upper abd 04/15: 1. Coarse slightly nodular liver suggesting cirrhosis. No focal hepatic masses. 2. Cholelithiasis. There is thickening of the gallbladder wall which is nonspecific finding. Clinical correlation is recommended to exclude acute or chronic cholecystitis. 3. No biliary duct dilatation. 4. Small ascites and right pleural effusion. 5. Pancreas not visualized Plan: Waiting on POA or conservator. They will make decision on PEG Monitor HH Continue abx Consultation Date/Type/Reason Admit Date/Time Mar 27, 2018 at 20:08 Initial Consult Date 04/02/18 Requesting Provider: DEENA BASILIO Date/Time of Note DATE: 05/04/18 TIME: 14:16 24 HR Interval Summary Free Text/Dictation Patient is awake follows commands no complaints Constitutional: no complaints, improved Exam/Review of Systems Exam Vitals Vital Signs Date Temp Pulse Resp B/P (MAP) Pulse Ox O2 O2 Flow FiO2 Time Delivery Rate 05/04/18 99.5 94 16 120/60 95 07:27 (80) 05/01/18 Room Air 14:17 Intake and Output 05/03/18 05/03/18 05/04/18 1515:00 23:00 07:00 IntakeIntake Total 50 ml 800 ml 870 ml OutputOutput Total 400 ml 400 ml BalanceBalance -350 ml 800 ml 470 ml Constitutional: alert, oriented, well developed Psych: no complaints, nl mood/affect Head: normocephalic, atraumatic Eyes: nl conjunctiva, EOMI, nl lids, nl sclera, PERRL ENMT: nl external ears & nose, nl lips & teeth, nl nasal mucosa & septum Neck: supple, non-tender Respiratory: clear to auscultation, normal air movement Cardiovascular: regular rate and rhythm, nl pulses Gastrointestinal: soft, nl liver, spleen, non-tender Musculoskeletal: nl extremities to inspection, nl gait and stance Extremities: normal pulses Neurological: COAL BAGGER II-XII intact, nl mental status, nl speech, nl strength Skin: nl turgor; No rash or lesions Lymph: nl lymph nodes Results Result Diagram: 05/01/1853905/01/18539 Medications Medication Current Medications Ascorbic Acid (Vitamin C) 500 mg DAILY NGT Last administered on 05/04/18 08:47; Admin Dose 500 MG; Start 04/09/18 at 14:00 Zinc Sulfate (Zinc Sulfate) 220 mg DAILY NGT Last administered on 05/04/18 08:47; Admin Dose 220 MG; Start 04/10/18 at 09:00 Lansoprazole (Prevacid) 30 mg BID@0600,1800 PO Last administered on 05/04/18 05:39; Admin Dose 30 MG; Start 04/14/18 at 18:00 Multivitamins (Multivitamin) 30 ml DAILY NGT Last administered on 05/04/18 08:47; Admin Dose 30 ML; Start 04/16/18 at 16:30 Meropenem/Sodium Chloride 50 ml @ 100 mls/hr Q12 IVPB Last administered on 05/04/18 08:47; Admin Dose 100 MLS/HR; Start 04/28/18 at 16:00 Miscellaneous Information (*Order Clarification Bulletin) MEDICATION REQUIRES CLARIFICATI... Q12H XX Last administered on 05/02/18 10:00; Admin Dose 1 EA; Start 04/30/18 at 10:00 Morphine Sulfate (morphine) 6 mg Q4H PRN NGT SEVERE PAIN LEVEL 7-10; Start 04/30/18 at 21:30 Collagenase (Santyl) 1 applic DAILY TOP Last administered on 05/04/18 08:47; Admin Dose 1 APPLIC; Start 05/02/18 at 16:00 ATTILA UMANZOR MD May 04, 2018 14:17
--- NOTE | 2018-05-04 14:33 | CONS ---
Assessment/Plan Assessment/Plan Assessment/Plan (Daily) 1. Acute kidney injury on CKD due to ATN + prerenal azotemia 2. acute blood loss anemia- 3. acute hyperkalemia- now resolved 4. acute hypoxemic resp failure 5. Sepsis due to acute UTI 6. Severe metabolic acidosis due to FLORES 7. Hypernatremia 8. Upper GI bleeding Plan: BUN/Cr 28/0.76- other electrolytes stable, BP stable w/o midodrine, WBC improved from 21 to 11.1, NG tube replaced Renal US showed No evidence of hydronephrosis or mass, Nonobstructing intrarenal calculi are seen in the mid right kidney measuring 4 mm in 7 mm. 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.8 x 6.7 x 8.3 cm will follow up Consultation Date/Type/Reason Admit Date/Time Mar 27, 2018 at 20:08 Initial Consult Date 03/31/18 Type of Consult NEPHROLOGY Requesting Provider: DEENA BASILIO Date/Time of Note DATE: 05/04/18 TIME: 14:33 Exam/Review of Systems Exam Vitals Vital Signs Date Temp Pulse Resp B/P (MAP) Pulse Ox O2 O2 Flow FiO2 Time Delivery Rate 05/04/18 97.6 94 16 128/75 97 14:16 (92) 05/01/18 Room Air 14:17 Intake and Output 05/03/18 05/03/18 05/04/18 1515:00 23:00 07:00 IntakeIntake Total 50 ml 800 ml 870 ml OutputOutput Total 400 ml 400 ml BalanceBalance -350 ml 800 ml 470 ml Exam Constitutional: alert Neck: supple, non-tender Respiratory: clear to auscultation, normal air movement, diminished breath sounds Cardiovascular: regular rate and rhythm, nl pulses Gastrointestinal: soft, non-tender Musculoskeletal: nl extremities to inspection + magaña catheter Results Result Diagram: 05/01/1840 05/01/1840 Medications Medication Current Medications Ascorbic Acid (Vitamin C) 500 mg DAILY NGT Last administered on 05/04/18at 08:47; Admin Dose 500 MG; Start 04/09/18 at 14:00 Zinc Sulfate (Zinc Sulfate) 220 mg DAILY NGT Last administered on 05/04/18at 08:47; Admin Dose 220 MG; Start 04/10/18 at 09:00 Lansoprazole (Prevacid) 30 mg BID@0600,1800 PO Last administered on 05/04/18 05:39; Admin Dose 30 MG; Start 04/14/18 at 18:00 Multivitamins (Multivitamin) 30 ml DAILY NGT Last administered on 05/04/18 08:47; Admin Dose 30 ML; Start 04/16/18 at 16:30 Meropenem/Sodium Chloride 50 ml @ 100 mls/hr Q12 IVPB Last administered on 05/04/18 08:47; Admin Dose 100 MLS/HR; Start 04/28/18 at 16:00 Miscellaneous Information (*Order Clarification Bulletin) MEDICATION REQUIRES CLARIFICATI... Q12H XX Last administered on 05/02/18 10:00; Admin Dose 1 EA; Start 04/30/18 at 10:00 Morphine Sulfate (morphine) 6 mg Q4H PRN NGT SEVERE PAIN LEVEL 7-10; Start 04/30/18 at 21:30 Collagenase (Santyl) 1 applic DAILY TOP Last administered on 05/04/18 08:47; Admin Dose 1 APPLIC; Start 05/02/18 at 16:00 STEVEN BLANCO MD May 04, 2018 14:33
--- NOTE | 2018-05-04 15:21 | CONS ---
Assessment/Plan Assessment/Plan Hospital Course (Demo Recall) ID PROGRESS NOTE CURRENT ABX: DAY # => Merrem #7 24H INTERVAL SUMMARY * No issues overnight -- frail elder w/(+)NGT for oingoing aspiration -- needs PEG per notes awaiting conservator informed consent. * No fevers, VSS, NAD, without dyspnea MICRO/OTHER * Microbiology: Urine culture growing E. coli ESBL PHYSICAL EXAMINATION: GENERAL: Afebrile, VSS HEENT: AT, NC, anicteric NECK: Supple, trach midline CHEST: Equal chest rise bilaterally, without dyspnea on observation HEART: Pulse RRR ABDOMEN: Soft / NT EXTREMITIES: Warm, dry SKIN: No rash, no diaphoresis ID ASSESSMENT 88 yo M admit with: 1. Recurrent UTI 2. Status post GI bleeding===> underwent EGD with Hemoclip placement 3. S/p E. coli ESBL UTI/ yeast UTI 4. History MRSA nares colonization 5. Dysphagia 6. Dementia (-)MRSA Nares ABX ALLERGIES: None to ABX INVASIVES: PIV CURRENT ABX: Merrem #7 ID RECOMMENDATIONS/PLAN: 1. DC Merrem today -- observe off ABX . Consultation Date/Type/Reason Admit Date/Time Mar 27, 2018 at 20:08 Initial Consult Date 04/02/18 Requesting Provider: DEENA BASILIO Date/Time of Note DATE: 05/04/18 TIME: 15:18 Exam/Review of Systems Exam Vitals Vital Signs Date Temp Pulse Resp B/P (MAP) Pulse Ox O2 O2 Flow FiO2 Time Delivery Rate 05/04/18 97.6 94 16 128/75 97 14:16 (92) 05/01/18 Room Air 14:17 Intake and Output 05/03/18 05/03/18 05/04/18 1515:00 23:00 07:00 IntakeIntake Total 50 ml 800 ml 870 ml OutputOutput Total 400 ml 400 ml BalanceBalance -350 ml 800 ml 470 ml Results Result Diagram: 05/01/1853905/01/18 0540 Medications Medication Current Medications Ascorbic Acid (Vitamin C) 500 mg DAILY NGT Last administered on 05/04/18at 08:47; Admin Dose 500 MG; Start 04/09/18 at 14:00 Zinc Sulfate (Zinc Sulfate) 220 mg DAILY NGT Last administered on 05/04/18at 08:47; Admin Dose 220 MG; Start 04/10/18 at 09:00 Lansoprazole (Prevacid) 30 mg BID@0600,1800 PO Last administered on 05/04/18 05:39; Admin Dose 30 MG; Start 04/14/18 at 18:00 Multivitamins (Multivitamin) 30 ml DAILY NGT Last administered on 05/04/18 08:47; Admin Dose 30 ML; Start 04/16/18 at 16:30 Meropenem/Sodium Chloride 50 ml @ 100 mls/hr Q12 IVPB Last administered on 05/04/18 08:47; Admin Dose 100 MLS/HR; Start 04/28/18 at 16:00 Miscellaneous Information (*Order Clarification Bulletin) MEDICATION REQUIRES CLARIFICATI... Q12H XX Last administered on 05/02/18 10:00; Admin Dose 1 EA; Start 04/30/18 at 10:00 Morphine Sulfate (morphine) 6 mg Q4H PRN NGT SEVERE PAIN LEVEL 7-10; Start 04/30/18 at 21:30 Collagenase (Santyl) 1 applic DAILY TOP Last administered on 05/04/18 08:47; Admin Dose 1 APPLIC; Start 05/02/18 at 16:00 FRED CANTRELL NP May 04, 2018 15:21
[2018-05-04 20:00] VITALS: BP 113/58; PULSE 88; RESP 18
[2018-05-05 02:00] VITALS: BP 126/60; PULSE 81; RESP 18
[2018-05-05] MEDS: LANSOPRAZOLE 30 MG CAP PO SCH ×2 (05:47→21:44)
--- NOTE | 2018-05-05 07:20 | CONS ---
Assessment/Plan Assessment/Plan Hospital Course (Demo Recall) 88 yo male presented with urosepsis and respiratory failure and coffee ground emesis 1. Upper GI bleed manifested through coffee ground emesis and melena -s/p EGD -resolved 2. Gastric ulcers, etiology of bleed -resolved 3. Hiatal hernia 4. Anemia secondary to gastric ulcer bleeding -stable but slowly trending down, no active GI bleeding noted, FOB neg 04/16 -monitor closely -stable 5. UTI -improving 6. Dysphagia -improving 7. Malnutrition. 8. Liver cirrhosis, with positive smooth muscle titer and smooth muscle ab interp POS US of upper abd 04/15: 1. Coarse slightly nodular liver suggesting cirrhosis. No focal hepatic masses. 2. Cholelithiasis. There is thickening of the gallbladder wall which is nonspecific finding. Clinical correlation is recommended to exclude acute or chronic cholecystitis. 3. No biliary duct dilatation. 4. Small ascites and right pleural effusion. 5. Pancreas not visualized Plan: Waiting on POA or conservator. They will make decision on PEG Monitor HH Continue abx Pt examined and plan of care discussed with Dr. Gomes Consultation Date/Type/Reason Admit Date/Time Mar 27, 2018 at 20:08 Initial Consult Date 04/02/18 Requesting Provider: DEENA BASILIO Date/Time of Note DATE: 05/05/18 TIME: 07:19 24 HR Interval Summary Free Text/Dictation Tolerating tube feeds. BM qd, brown. No evidence of GI bleeding. Exam/Review of Systems Exam Vitals Vital Signs Date Temp Pulse Resp B/P (MAP) Pulse Ox O2 O2 Flow FiO2 Time Delivery Rate 05/05/18 98.0 81 18 126/60 98 02:00 (82) 05/01/18 Room Air 14:17 Intake and Output 05/04/18 05/04/18 05/05/18 1515:00 23:00 07:00 IntakeIntake Total 50 ml 870 ml 860 ml OutputOutput Total 500 ml 550 ml BalanceBalance 50 ml 370 ml 310 ml Constitutional: alert Head: normocephalic Gastrointestinal: soft, non-tender Results Result Diagram: 05/05/18 0441 05/05/18 0441 Results 24hrs Laboratory Tests Test 05/05/18 04:41 White Blood Count 16.5 #H Red Blood Count 3.07 L Hemoglobin 8.6 L Hematocrit 28.3 L Mean Corpuscular Volume 92.2 Mean Corpuscular Hemoglobin 28.0 L Mean Corpuscular Hemoglobin Concent 30.4 L Red Cell Distribution Width 17.1 H Platelet Count 332 Mean Platelet Volume 11.8 H Immature Granulocytes % 1.400 H Neutrophils % 75.0 Lymphocytes % 12.1 L Monocytes % 6.7 Eosinophils % 4.3 Basophils % 0.5 Nucleated Red Blood Cells % 0.0 Immature Granulocytes # 0.230 H Neutrophils # 12.4 H Lymphocytes # 2.0 Monocytes # 1.1 H Eosinophils # 0.7 H Basophils # 0.1 Nucleated Red Blood Cells # 0.0 Sodium Level 143 Potassium Level 4.1 Chloride Level 106 Carbon Dioxide Level 33 H Anion Gap 4 L Blood Urea Nitrogen 38 H Creatinine 0.92 Est Glomerular Filtrat Rate mL/min Glucose Level 129 Calcium Level 8.9 Medications Medication Current Medications Ascorbic Acid (Vitamin C) 500 mg DAILY NGT Last administered on 05/04/18 08:47; Admin Dose 500 MG; Start 04/09/18 at 14:00 Zinc Sulfate (Zinc Sulfate) 220 mg DAILY NGT Last administered on 05/04/18 08:47; Admin Dose 220 MG; Start 04/10/18 at 09:00 Lansoprazole (Prevacid) 30 mg BID@0600,1800 PO Last administered on 05/05/18 05:47; Admin Dose 30 MG; Start 04/14/18 at 18:00 Multivitamins (Multivitamin) 30 ml DAILY NGT Last administered on 05/04/18 08:47; Admin Dose 30 ML; Start 04/16/18 at 16:30 Miscellaneous Information (*Order Clarification Bulletin) MEDICATION REQUIRES CLARIFICATI... Q12H XX Last administered on 05/02/18 10:00; Admin Dose 1 EA; Start 04/30/18 at 10:00 Morphine Sulfate (morphine) 6 mg Q4H PRN NGT SEVERE PAIN LEVEL 7-10; Start 04/30/18 at 21:30 Collagenase (Santyl) 1 applic DAILY TOP Last administered on 05/04/18 08:47; Admin Dose 1 APPLIC; Start 05/02/18 at 16:00 SOREN DOVE May 05, 2018 07:20
[2018-05-05 07:22] VITALS: BP 132/64; PULSE 88; RESP 16
[2018-05-05] MEDS: ASCORBIC ACID 500 MG TAB NGT SCH (09:00)
[2018-05-05] MEDS: ZINC SULFATE 220 MG CAP NGT SCH (09:00)
[2018-05-05] MEDS: BALSAM PERU/CASTOR OIL 60 GM TUBE TOP SCH ×2 (09:01→21:45)
[2018-05-05] MEDS: COLLAGENASE 5 GM (UD JAR) TOP SCH (09:01)
[2018-05-05] MEDS: MULTIVITAMINS 30 ML CUP NGT SCH (09:01)
--- NOTE | 2018-05-05 12:46 | CONS ---
Assessment/Plan Assessment/Plan Assessment/Plan (Daily) 1. Acute kidney injury on CKD due to ATN + prerenal azotemia 2. acute blood loss anemia- 3. acute hyperkalemia- now resolved 4. acute hypoxemic resp failure 5. Sepsis due to acute UTI 6. Severe metabolic acidosis due to FLORES 7. Hypernatremia 8. Upper GI bleeding Plan: BUN/Cr 38/0.92- other electrolytes stable, BP stable w/o midodrine, WBC still high 16.5 Renal US showed No evidence of hydronephrosis or mass, Nonobstructing intrarenal calculi are seen in the mid right kidney measuring 4 mm in 7 mm. 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.8 x 6.7 x 8.3 cm will follow up Consultation Date/Type/Reason Admit Date/Time Mar 27, 2018 at 20:08 Initial Consult Date 03/31/18 Type of Consult NEPHROLOGY Requesting Provider: DEENA BASILIO Date/Time of Note DATE: 05/05/18 TIME: 12:46 Exam/Review of Systems Exam Vitals Vital Signs Date Temp Pulse Resp B/P (MAP) Pulse Ox O2 O2 Flow FiO2 Time Delivery Rate 05/05/18 97.9 88 16 132/64 96 07:22 (86) 05/01/18 Room Air 14:17 Intake and Output 05/04/18 05/04/18 05/05/18 1515:00 23:00 07:00 IntakeIntake Total 50 ml 870 ml 860 ml OutputOutput Total 500 ml 550 ml BalanceBalance 50 ml 370 ml 310 ml Exam Constitutional: alert Neck: supple, non-tender Respiratory: clear to auscultation, normal air movement, diminished breath sounds Cardiovascular: regular rate and rhythm, nl pulses Gastrointestinal: soft, non-tender Musculoskeletal: nl extremities to inspection + magaña catheter Results Result Diagram: 05/05/18 0441 05/05/181 Results 24hrs Laboratory Tests Test 05/05/18 04:41 White Blood Count 16.5 #H Red Blood Count 3.07 L Hemoglobin 8.6 L Hematocrit 28.3 L Mean Corpuscular Volume 92.2 Mean Corpuscular Hemoglobin 28.0 L Mean Corpuscular Hemoglobin Concent 30.4 L Red Cell Distribution Width 17.1 H Platelet Count 332 Mean Platelet Volume 11.8 H Immature Granulocytes % 1.400 H Neutrophils % 75.0 Lymphocytes % 12.1 L Monocytes % 6.7 Eosinophils % 4.3 Basophils % 0.5 Nucleated Red Blood Cells % 0.0 Immature Granulocytes # 0.230 H Neutrophils # 12.4 H Lymphocytes # 2.0 Monocytes # 1.1 H Eosinophils # 0.7 H Basophils # 0.1 Nucleated Red Blood Cells # 0.0 Sodium Level 143 Potassium Level 4.1 Chloride Level 106 Carbon Dioxide Level 33 H Anion Gap 4 L Blood Urea Nitrogen 38 H Creatinine 0.92 Est Glomerular Filtrat Rate mL/min Glucose Level 129 Calcium Level 8.9 Medications Medication Current Medications Ascorbic Acid (Vitamin C) 500 mg DAILY NGT Last administered on 05/05/18 09:00; Admin Dose 500 MG; Start 04/09/18 at 14:00 Zinc Sulfate (Zinc Sulfate) 220 mg DAILY NGT Last administered on 05/05/18 09:00; Admin Dose 220 MG; Start 04/10/18 at 09:00 Lansoprazole (Prevacid) 30 mg BID@0600,1800 PO Last administered on 05/05/18 05:47; Admin Dose 30 MG; Start 04/14/18 at 18:00 Multivitamins (Multivitamin) 30 ml DAILY NGT Last administered on 05/05/18 09:01; Admin Dose 30 ML; Start 04/16/18 at 16:30 Miscellaneous Information (*Order Clarification Bulletin) MEDICATION REQUIRES CLARIFICATI... Q12H XX Last administered on 05/02/18at 10:00; Admin Dose 1 EA; Start 04/30/18 at 10:00 Morphine Sulfate (morphine) 6 mg Q4H PRN NGT SEVERE PAIN LEVEL 7-10; Start 04/30/18 at 21:30 Collagenase (Santyl) 1 applic DAILY TOP Last administered on 05/05/18 09:01; Admin Dose 1 APPLIC; Start 05/02/18 at 16:00 STEVEN BLANCO MD May 05, 2018 12:46
[2018-05-05 13:49] VITALS: BP 155/87; PULSE 109; RESP 16
--- NOTE | 2018-05-05 14:17 | CONS ---
Assessment/Plan Assessment/Plan Hospital Course (Demo Recall) Alety, sitting in a chair, looks comfortable, no fevers Microbiology: Urine culture growing E. coli ESBL Antimicrobials: s/p Meropenem Indwelling: NG tube [place] Physical examination: Well-developed chronically ill-appearing wasted elderly man who is in no distress. Head atraumatic normocephalic sclera nonicteric. Neck is supple chest rise symmetrical breath sounds diminished bases. Heart: S1-S2 abdomen distended tender on palpation extremities without cyanosis Assessment: 1. Recurrent UTI 2. Status post GI bleeding===> underwent EGD with Hemoclip placement 3. S/p E. coli ESBL UTI/ yeast UTI 4. History MRSA nares colonization 5. Dysphagia 6. Dementia Plan: Stable, continue abx, aspiration precautions, consider swallow re- evaluation Consultation Date/Type/Reason Admit Date/Time Mar 27, 2018 at 20:08 Initial Consult Date 04/02/18 Type of Consult ID Requesting Provider: DEENA BASILIO Date/Time of Note DATE: 05/05/18 TIME: 14:15 Exam/Review of Systems Exam Vitals Vital Signs Date Temp Pulse Resp B/P (MAP) Pulse Ox O2 O2 Flow FiO2 Time Delivery Rate 05/05/18 97.8 109 16 155/87 97 13:49 (109) 05/01/18 Room Air 14:17 Intake and Output 05/04/18 05/04/18 05/05/18 1515:00 23:00 07:00 IntakeIntake Total 50 ml 870 ml 860 ml OutputOutput Total 500 ml 550 ml BalanceBalance 50 ml 370 ml 310 ml Results Result Diagram: 05/05/18 04405/05/18 0441 Results 24hrs Laboratory Tests Test 05/05/18 04:41 White Blood Count 16.5 #H Red Blood Count 3.07 L Hemoglobin 8.6 L Hematocrit 28.3 L Mean Corpuscular Volume 92.2 Mean Corpuscular Hemoglobin 28.0 L Mean Corpuscular Hemoglobin Concent 30.4 L Red Cell Distribution Width 17.1 H Platelet Count 332 Mean Platelet Volume 11.8 H Immature Granulocytes % 1.400 H Neutrophils % 75.0 Lymphocytes % 12.1 L Monocytes % 6.7 Eosinophils % 4.3 Basophils % 0.5 Nucleated Red Blood Cells % 0.0 Immature Granulocytes # 0.230 H Neutrophils # 12.4 H Lymphocytes # 2.0 Monocytes # 1.1 H Eosinophils # 0.7 H Basophils # 0.1 Nucleated Red Blood Cells # 0.0 Sodium Level 143 Potassium Level 4.1 Chloride Level 106 Carbon Dioxide Level 33 H Anion Gap 4 L Blood Urea Nitrogen 38 H Creatinine 0.92 Est Glomerular Filtrat Rate mL/min Glucose Level 129 Calcium Level 8.9 Medications Medication Current Medications Ascorbic Acid (Vitamin C) 500 mg DAILY NGT Last administered on 05/05/18 09:00; Admin Dose 500 MG; Start 04/09/18 at 14:00 Zinc Sulfate (Zinc Sulfate) 220 mg DAILY NGT Last administered on 05/05/18 09:00; Admin Dose 220 MG; Start 04/10/18 at 09:00 Lansoprazole (Prevacid) 30 mg BID@0600,1800 PO Last administered on 05/05/18 05:47; Admin Dose 30 MG; Start 04/14/18 at 18:00 Multivitamins (Multivitamin) 30 ml DAILY NGT Last administered on 05/05/18 09:01; Admin Dose 30 ML; Start 04/16/18 at 16:30 Miscellaneous Information (*Order Clarification Bulletin) MEDICATION REQUIRES CLARIFICATI... Q12H XX Last administered on 05/02/18 10:00; Admin Dose 1 EA; Start 04/30/18 at 10:00 Morphine Sulfate (morphine) 6 mg Q4H PRN NGT SEVERE PAIN LEVEL 7-10; Start 04/30/18 at 21:30 Collagenase (Santyl) 1 applic DAILY TOP Last administered on 05/05/18 09:01; Admin Dose 1 APPLIC; Start 05/02/18 at 16:00 DAVONTE MCMAHAN NP May 05, 2018 14:17
--- NOTE | 2018-05-05 16:49 | PN ---
Date/Time of Note Date/Time of Note DATE: 05/05/18 TIME: 16:46 Assessment/Plan VTE Prophylaxis Risk score (from Ns)>0 risk: 10 SCD applied (from Ns): Yes Pharmacological prophylaxis: NA/contraindicated Pharm contraindication: bleeding Lines/Catheters IV [facility]ter [facility]from [facility] [place] Urinary Cath still in place: Yes Reason Cath still needed: urinary retention Assessment/Plan Hospital Course Patient remains hemodynamically stable, afebrile pending G-tube placement possibly tomorrow, discussed with Dr. Gomes. Assessment/Plan -Possible aspiration pneumonia, continue antibiotics per ID. -Anemia secondary to GI bleed. Dr. Gomes is following in GI consultation. Transfuse as needed, monitor hemoglobin and hematocrit. -Bleeding gastric ulcers, s/p hemostasis with placement of hemoclip during EGD by Dr Guallpa on 04/03/18. Continue Protonix. -S/p septic shock secondary to urinary tract infection, continue antibiotics per ID. Dr. Guzman is following in infection disease consultation. -Hypoxemic respiratory failure, resolving. Dr. Nam is following in pulmonology consultation. -Acute kidney injury, resolved. Dr. Senior following in nephrology consultation. -Hypernatremia, resolved. 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 -Protein calorie malnutrition -No family, patient is appropriate for PEG placement and DNR status as per d ecision of the bioethics committee Further recommendations based on clinical course. Plan of care discussed with Dr. Kiser. Result Diagram: 05/05/181 05/05/18 0441 Results 24hrs Laboratory Tests Test 05/05/18 04:41 White Blood Count 16.5 #H Red Blood Count 3.07 L Hemoglobin 8.6 L Hematocrit 28.3 L Mean Corpuscular Volume 92.2 Mean Corpuscular Hemoglobin 28.0 L Mean Corpuscular Hemoglobin Concent 30.4 L Red Cell Distribution Width 17.1 H Platelet Count 332 Mean Platelet Volume 11.8 H Immature Granulocytes % 1.400 H Neutrophils % 75.0 Lymphocytes % 12.1 L Monocytes % 6.7 Eosinophils % 4.3 Basophils % 0.5 Nucleated Red Blood Cells % 0.0 Immature Granulocytes # 0.230 H Neutrophils # 12.4 H Lymphocytes # 2.0 Monocytes # 1.1 H Eosinophils # 0.7 H Basophils # 0.1 Nucleated Red Blood Cells # 0.0 Sodium Level 143 Potassium Level 4.1 Chloride Level 106 Carbon Dioxide Level 33 H Anion Gap 4 L Blood Urea Nitrogen 38 H Creatinine 0.92 Est Glomerular Filtrat Rate mL/min Glucose Level 129 Calcium Level 8.9 Exam/Review of Systems Exam Vitals Vital Signs Date Temp Pulse Resp B/P (MAP) Pulse Ox O2 O2 Flow FiO2 Time Delivery Rate 05/05/18 97.8 109 16 155/87 97 13:49 (109) 05/01/18 Room Air 14:17 Intake and Output 05/04/18 05/04/18 05/05/18 1515:00 23:00 07:00 IntakeIntake Total 50 ml 870 ml 860 ml OutputOutput Total 500 ml 550 ml BalanceBalance 50 ml 370 ml 310 ml Exam Constitutional: alert, oriented, frail ENMT: nl external ears & nose, other (NGT) Respiratory: diminished breath sounds Cardiovascular: nl pulses Gastrointestinal: soft, non-tender Musculoskeletal: muscle weakness Extremities: normal pulses Results Results 24hrs Laboratory Tests Test 05/05/18 04:41 White Blood Count 16.5 #H Red Blood Count 3.07 L Hemoglobin 8.6 L Hematocrit 28.3 L Mean Corpuscular Volume 92.2 Mean Corpuscular Hemoglobin 28.0 L Mean Corpuscular Hemoglobin Concent 30.4 L Red Cell Distribution Width 17.1 H Platelet Count 332 Mean Platelet Volume 11.8 H Immature Granulocytes % 1.400 H Neutrophils % 75.0 Lymphocytes % 12.1 L Monocytes % 6.7 Eosinophils % 4.3 Basophils % 0.5 Nucleated Red Blood Cells % 0.0 Immature Granulocytes # 0.230 H Neutrophils # 12.4 H Lymphocytes # 2.0 Monocytes # 1.1 H Eosinophils # 0.7 H Basophils # 0.1 Nucleated Red Blood Cells # 0.0 Sodium Level 143 Potassium Level 4.1 Chloride Level 106 Carbon Dioxide Level 33 H Anion Gap 4 L Blood Urea Nitrogen 38 H Creatinine 0.92 Est Glomerular Filtrat Rate mL/min Glucose Level 129 Calcium Level 8.9 Medications Medication Current Medications Ascorbic Acid (Vitamin C) 500 mg DAILY NGT Last administered on 05/05/18at 09:00; Admin Dose 500 MG; Start 04/09/18 at 14:00 Zinc Sulfate (Zinc Sulfate) 220 mg DAILY NGT Last administered on 05/05/18 09:00; Admin Dose 220 MG; Start 04/10/18 at 09:00 Lansoprazole (Prevacid) 30 mg BID@0600,1800 PO Last administered on 05/05/18at 05:47; Admin Dose 30 MG; Start 04/14/18 at 18:00 Multivitamins (Multivitamin) 30 ml DAILY NGT Last administered on 05/05/18at 09:01; Admin Dose 30 ML; Start 04/16/18 at 16:30 Miscellaneous Information (*Order Clarification Bulletin) MEDICATION REQUIRES CLARIFICATI... Q12H XX Last administered on 05/02/18at 10:00; Admin Dose 1 EA; Start 04/30/18 at 10:00 Morphine Sulfate (morphine) 6 mg Q4H PRN NGT SEVERE PAIN LEVEL 7-10; Start 04/30/18 at 21:30 Collagenase (Santyl) 1 applic DAILY TOP Last administered on 05/05/18at 09:01; Admin Dose 1 APPLIC; Start 05/02/18 at 16:00 JUDY CORNEJO May 05, 2018 16:49
[2018-05-05 20:19] VITALS: BP 133/63; PULSE 98; RESP 18
[2018-05-06] VITALS (14 sets, daily range): BP systolic 120–179; BP diastolic 56–79; PULSE 67–97; RESP 16–21
[2018-05-06] MEDS: LANSOPRAZOLE 30 MG CAP PO SCH ×2 (05:31→18:37)
--- NOTE | 2018-05-06 07:53 | PREAC ---
Date/Time of Note Date/Time of Note DATE: 05/06/18 TIME: 07:50 Anesthesia Eval and Record Evaluation Time Pre-Procedure Interview DATE: 05/06/18 TIME: 07:50 Age 88 Sex male NPO: 8 hrs Preoperative diagnosis dysphagia Planned procedure EGD and PEG placement Past Medical History Past Medical History: Includes Pulm: Other (resp failure, possible ASP PNA) Neuro: Other Renal: FLORES Hepatic: Cirrhosis Heme: Anemia Infection(s): Other (sepsis) Surgery & Anesthesia Issues No known issue Meds Anticoagulation: Yes Beta Mike within 24 hr: No Reason Beta Mike not given: Pt. not on B-Mike Reported Medications Triamcinolone Acetonide* (Kenalog*) 0.1%-15GM Cr, 1 APPLIC TOP BID, #1 TUB 03/27/18 Collagenase* (Santyl*) 30 Gm Oint..gm., 1 APPLIC TOP .SOILED PRN for SOILED, #1 TUB 03/27/18 Hydrocodone/Acetaminophen ([place] 5-325 Tablet) 1 Each Tablet, 1 EACH PO Q6H PRN for MILD PAIN LEVEL 1-3, TAB 03/27/18 Hydrocodone/Acetaminophen ([place] 5-325 Tablet) 1 Each Tablet, 1 EACH PO DAILY PRN for WOUND CARE, TAB 03/27/18 Memantine* (Namenda* XR) 28 Mg Cap.spr.24, 28 MG PO DAILY, #30 TAB START TAKING-04/01/18 03/27/18 Memantine* (Namenda* XR) 21 Mg Cap.spr.24, 21 MG PO DAILY, #30 TAB FOR 7 DAYS,STOP TAKING 04/01/18 03/27/18 Enoxaparin Sodium* (Enoxaparin Sodium*) 30 Mg/0.3 Ml Syringe, 30 MG SC DAILY, SYR 03/27/18 Tamsulosin Hcl* (Tamsulosin Hcl*) 0.4 Mg Cap.er.24h, 0.4 MG PO HS, CAP 02/18/18 Protein Supplement (Promod) 946 Ml Liquid, 30 ML PO TID 02/18/18 Ondansetron Hcl* (Zofran*) 4 Mg Tab, 4 MG PO Q6H PRN for NAUSEA AND OR VOMITING, TAB 02/18/18 Multivitamin with Minerals (Multivitamins with Minerals) 1 Each Tablet, 1 EACH PO DAILY, TAB 02/18/18 Lactobacillus Acidophilus* (Lactinex*) 1 Tab Chew, 1 TAB PO BID, TAB 02/18/18 Famotidine* (Famotidine*) 20 Mg Tablet, 20 MG PO DAILY, #30 TAB 02/18/18 Docusate Sodium* (Docusate Sodium*) 100 Mg Capsule, 100 MG PO BID, #60 CAP 02/18/18 Bisacodyl* (Bisacodyl*) 10 Mg Supp, 10 MG [place] Q24H for CONSTIPATION, SUPP 02/18/18 Ascorbic Acid (Vitamin C) 500 Mg Tab, 500 MG PO DAILY, TAB 02/18/18 Current Medications Ascorbic Acid (Vitamin C) 500 mg DAILY NGT Last administered on 05/05/18 09:00; Admin Dose 500 MG; Start 04/09/18 at 14:00 Zinc Sulfate (Zinc Sulfate) 220 mg DAILY NGT Last administered on 05/05/18 09:00; Admin Dose 220 MG; Start 04/10/18 at 09:00 Lansoprazole (Prevacid) 30 mg BID@0600,1800 PO Last administered on 05/05/18 21:44; Admin Dose 30 MG; Start 04/14/18 at 18:00 Multivitamins (Multivitamin) 30 ml DAILY NGT Last administered on 05/05/18 09:01; Admin Dose 30 ML; Start 04/16/18 at 16:30 Miscellaneous Information (*Order Clarification Bulletin) MEDICATION REQUIRES CLARIFICATI... Q12H XX Last administered on 05/02/18at 10:00; Admin Dose 1 EA; Start 04/30/18 at 10:00 Morphine Sulfate (morphine) 6 mg Q4H PRN NGT SEVERE PAIN LEVEL 7-10; Start 04/30/18 at 21:30 Collagenase (Santyl) 1 applic DAILY TOP Last administered on 05/05/18 09:01; Admin Dose 1 APPLIC; Start 05/02/18 at 16:00 Collagenase (Santyl) 1 applic DAILY TOP ; Start 05/06/18 at 09:00 Meds reviewed: Yes Allergies Coded Allergies: No Known Allergy (Unverified , 04/06/18) Allergies Reviewed: Yes Labs/Studies Labs Reviewed: Reviewed by anesthesiologist Result Diagram: 05/05/1844005/05/18440 test: N/A Studies: ECG Pre-procedure Exam Last vitals Vital Signs Date Temp Pulse Resp B/P (MAP) Pulse Ox O2 O2 Flow FiO2 Time Delivery Rate 05/06/18 98.8 96 16 179/74 97 07:16 (109) Airway: Adequate mouth opening (UNABLE TO ASSESS), Adequate thyromental dist Mallampati: Mallampati I (UNABLE TO ASSESS) Teeth: Abnormal Lung: Normal Heart: Normal ASA Physical Status ASA physical status: 3 Emergency: None Planned Anesthetic General/MAC: MAC, TIVA Planned Pain Management Parenteral pain med, Local by surgeon Pre-operative Attestations PT HAS NO FAMILY AND INCOMPETENT TO PROVIDE CONSENT, bioethics committee has been involved with consent process. Prior to commencing anesthesia and surgery, the patient was re-evaluated, there was verification of: *The patient's identity *The results of appropriate recent lab work and preoperative vital signs *The above evaluation not changing prior to induction *Anesthetic plan, risk benefits, alternative and complications discussed with patient/family; questions answered; patient/family understands, accepts and wishes to proceed. HARVEY WOODARD May 06, 2018 07:53
--- NOTE | 2018-05-06 08:55 | CONS ---
Assessment/Plan Assessment/Plan Assessment/Plan (Daily) 1. Acute kidney injury on CKD due to ATN + prerenal azotemia 2. acute blood loss anemia- 3. acute hyperkalemia- now resolved 4. acute hypoxemic resp failure 5. Sepsis due to acute UTI 6. Severe metabolic acidosis due to FLORES 7. Hypernatremia 8. Upper GI bleeding Plan: BUN/Cr 38/0.92- other electrolytes stable, BP stable w/o midodrine, WBC still high 16.5 Renal US showed No evidence of hydronephrosis or mass, Nonobstructing intrarenal calculi are seen in the mid right kidney measuring 4 mm in 7 mm. 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.8 x 6.7 x 8.3 cm will follow up Consultation Date/Type/Reason Admit Date/Time Mar 27, 2018 at 20:08 Initial Consult Date 03/31/18 Type of Consult NEPHROLOGY Requesting Provider: DEENA BASIILO Date/Time of Note DATE: 05/06/18 TIME: 08:55 Exam/Review of Systems Exam Vitals Vital Signs Date Temp Pulse Resp B/P (MAP) Pulse Ox O2 O2 Flow FiO2 Time Delivery Rate 05/06/18 98.8 96 16 179/74 97 07:16 (109) Intake and Output 05/05/18 05/05/18 05/06/18 1515:00 23:00 07:00 IntakeIntake Total 120 ml 100 ml OutputOutput Total 500 ml BalanceBalance 120 ml -400 ml Results Result Diagram: 05/05/18 0441 05/05/18 0441 Medications Medication Current Medications Ascorbic Acid (Vitamin C) 500 mg DAILY NGT Last administered on 05/05/18at 09:00; Admin Dose 500 MG; Start 04/09/18 at 14:00 Zinc Sulfate (Zinc Sulfate) 220 mg DAILY NGT Last administered on 05/05/18 09:00; Admin Dose 220 MG; Start 04/10/18 at 09:00 Lansoprazole (Prevacid) 30 mg BID@0600,1800 PO Last administered on 05/05/18at 21:44; Admin Dose 30 MG; Start 04/14/18 at 18:00 Multivitamins (Multivitamin) 30 ml DAILY NGT Last administered on 05/05/18at 09:01; Admin Dose 30 ML; Start 04/16/18 at 16:30 Miscellaneous Information (*Order Clarification Bulletin) MEDICATION REQUIRES CLARIFICATI... Q12H XX Last administered on 05/02/18at 10:00; Admin Dose 1 EA; Start 04/30/18 at 10:00 Morphine Sulfate (morphine) 6 mg Q4H PRN NGT SEVERE PAIN LEVEL 7-10; Start 04/30/18 at 21:30 Collagenase (Santyl) 1 applic DAILY TOP Last administered on 05/05/18at 09:01; Admin Dose 1 APPLIC; Start 05/02/18 at 16:00 Collagenase (Santyl) 1 applic DAILY TOP ; Start 05/06/18 at 09:00 STEVEN BLANCO MD May 06, 2018 08:55
[2018-05-06] MEDS ORDERED: COLLAGENASE 5 GM (UD JAR) TOP SCH (09:00)
[2018-05-06] MEDS: ASCORBIC ACID 500 MG TAB NGT SCH (09:00)
[2018-05-06] MEDS: ZINC SULFATE 220 MG CAP NGT SCH (09:00)
[2018-05-06] MEDS: MULTIVITAMINS 30 ML CUP NGT SCH (09:00)
[2018-05-06] MEDS ORDERED: PROPOFOL 20 ML ONE (09:59)
[2018-05-06] MEDS ORDERED: CEFAZOLIN 1 GM/50 ML (PMX) 50 ML IVPB ONE (10:23)
[2018-05-06] MEDS ORDERED: FENTAnyl 50 MCG/ML VIAL IV PRN ×3 (11:00)
[2018-05-06] MEDS ORDERED: ONDANSETRON 4 MG INJ IV PRN (11:00)
--- NOTE | 2018-05-06 11:48 | PN ---
Date/Time of Note Date/Time of Note DATE: 05/06/18 TIME: 11:46 Assessment/Plan VTE Prophylaxis Risk score (from Ns)>0 risk: 12 SCD applied (from Ns): Yes Pharmacological prophylaxis: NA/contraindicated Pharm contraindication: surgical contra Lines/Catheters [facility] Peripheral IV Urinary Cath still in place: Yes Reason Cath still needed: urinary retention Assessment/Plan Hospital Course Patient is taken to OR for GT placement, no acute events reported prior to procedure. Assessment/Plan -Possible aspiration pneumonia, continue antibiotics per ID. -Anemia secondary to GI bleed. Dr. Gomes is following in GI consultation. Transfuse as needed, monitor hemoglobin and hematocrit. -Bleeding gastric ulcers, s/p hemostasis with placement of hemoclip during EGD by Dr Guallpa on 04/03/18. Continue Protonix. -S/p septic shock secondary to urinary tract infection, continue antibiotics per ID. Dr. Guzman is following in infection disease consultation. -Hypoxemic respiratory failure, resolving. Dr. Nam is following in pulmonology consultation. -Acute kidney injury, resolved. Dr. Senior following in nephrology consultation. -Hypernatremia, resolved. 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 -Protein calorie malnutrition -No family, patient is appropriate for PEG placement and DNR status as per decision of the bioethics committee Further recommendations based on clinical course. Plan of care discussed with Dr. Kiser. Result Diagram: 05/05/1844005/05/18440 Exam/Review of Systems Exam Vitals Vital Signs Date Temp Pulse Resp B/P (MAP) Pulse Ox O2 O2 Flow FiO2 Time Delivery Rate 05/06/18 98.8 96 16 179/74 97 07:16 (109) Intake and Output 05/05/18 05/05/18 05/06/18 1515:00 23:00 07:00 IntakeIntake Total 120 ml 100 ml OutputOutput Total 500 ml BalanceBalance 120 ml -400 ml Medications Medication Current Medications Ascorbic Acid (Vitamin C) 500 mg DAILY NGT Last administered on 05/05/18at 09:00; Admin Dose 500 MG; Start 04/09/18 at 14:00 Zinc Sulfate (Zinc Sulfate) 220 mg DAILY NGT Last administered on 05/05/18 09:00; Admin Dose 220 MG; Start 04/10/18 at 09:00 Lansoprazole (Prevacid) 30 mg BID@0600,1800 PO Last administered on 05/05/18 21:44; Admin Dose 30 MG; Start 04/14/18 at 18:00 Multivitamins (Multivitamin) 30 ml DAILY NGT Last administered on 05/05/18 09:01; Admin Dose 30 ML; Start 04/16/18 at 16:30 Miscellaneous Information (*Order Clarification Bulletin) MEDICATION REQUIRES CLARIFICATI... Q12H XX Last administered on 05/02/18 10:00; Admin Dose 1 EA; Start 04/30/18 at 10:00 Morphine Sulfate (morphine) 6 mg Q4H PRN NGT SEVERE PAIN LEVEL 7-10; Start 04/30/18 at 21:30 Collagenase (Santyl) 1 applic DAILY TOP Last administered on 05/05/18 09:01; Admin Dose 1 APPLIC; Start 05/02/18 at 16:00 Collagenase (Santyl) 1 applic DAILY TOP ; Start 05/06/18 at 09:00 Fentanyl (Sublimaze) 25 mcg PACU ORDER PRN IV MILD PAIN 1-3; Start 05/06/18 at 11:00; Stop 05/06/18 at 15:00 Fentanyl (Sublimaze) 50 mcg PACU ORDER PRN IV MOD PAIN 4-6; Start 05/06/18 at 11:00; Stop 05/06/18 at 15:00 Fentanyl (Sublimaze) 75 mcg PACU ORDER PRN IV SEVERE PAIN 7-10; Start 05/06/18 at 11:00; Stop 05/06/18 at 15:00 Ondansetron HCl (Zofran Inj) 4 mg PACU ORDER PRN IV NAUSEA/VOMITING; Start 05/06/18 at 11:00; Stop 05/06/18 at 15:00 JUDY CORNEJO May 06, 2018 11:48
--- NOTE | 2018-05-06 12:16 | PAC ---
Date/Time of Note Date/Time of Note DATE: 05/06/18 TIME: 12:16 Post-Anesthesia Notes Post-Anesthesia Note Last documented vital signs Vital Signs Date Temp Pulse Resp B/P (MAP) Pulse Ox O2 O2 Flow FiO2 Time Delivery Rate 05/06/18 82 19 134/56 97 Room Air 12:01 (82) 05/06/18 97.7 11:26 Activity: WNL Respiratory function: WNL Cardiovascular function: WNL Mental status: Baseline Pain reasonably controlled: Yes Hydration appropriate: Yes Nausea/Vomiting absent: Yes HARVEY WOODARD May 06, 2018 12:16
--- NOTE | 2018-05-06 12:20 | CONS ---
Assessment/Plan Assessment/Plan Hospital Course (Demo Recall) All noted, nad Microbiology: Urine culture growing Enterococcus Antimicrobials: none s/p Meropenem Indwelling: NG tube Honeycutt Physical examination: Well-developed chronically ill-appearing wasted elderly man who is in no distress. Head atraumatic normocephalic sclera nonicteric. Neck is supple chest rise symmetrical breath sounds diminished bases. Heart: S1-S2 abdomen distended tender on palpation extremities without cyanosis Assessment: 1. Recurrent UTI 2. Status post GI bleeding===> underwent EGD with Hemoclip placement 3. S/p E. coli ESBL UTI/ yeast UTI 4. History MRSA nares colonization 5. Dysphagia 6. Dementia Plan: Clinically stable, will give a dose of Fosfomycin and start Zyvox, change Honeycutt, start Flomax and anticipate dc Honeycutt in couple days, f/u labs and final cx Consultation Date/Type/Reason Admit Date/Time Mar 27, 2018 at 20:08 Initial Consult Date 04/02/18 Type of Consult ID Requesting Provider: DEENA BASILIO Date/Time of Note DATE: 05/06/18 TIME: 12:18 Exam/Review of Systems Exam Vitals Vital Signs Date Temp Pulse Resp B/P (MAP) Pulse Ox O2 O2 Flow FiO2 Time Delivery Rate 05/06/18 82 19 134/56 97 Room Air 12:01 (82) 05/06/18 97.7 11:26 Intake and Output 05/05/18 05/05/18 05/06/18 1515:00 23:00 07:00 IntakeIntake Total 120 ml 100 ml OutputOutput Total 500 ml BalanceBalance 120 ml -400 ml Results Result Diagram: 05/05/18 0441 05/05/18 0441 Medications Medication Current Medications Ascorbic Acid (Vitamin C) 500 mg DAILY NGT Last administered on 05/05/18at 09:00; Admin Dose 500 MG; Start 04/09/18 at 14:00 Zinc Sulfate (Zinc Sulfate) 220 mg DAILY NGT Last administered on 05/05/18at 09:00; Admin Dose 220 MG; Start 04/10/18 at 09:00 Lansoprazole (Prevacid) 30 mg BID@0600,1800 PO Last administered on 05/05/18at 21:44; Admin Dose 30 MG; Start 04/14/18 at 18:00 Multivitamins (Multivitamin) 30 ml DAILY NGT Last administered on 05/05/18at 09:01; Admin Dose 30 ML; Start 04/16/18 at 16:30 Miscellaneous Information (*Order Clarification Bulletin) MEDICATION REQUIRES CLARIFICATI... Q12H XX Last administered on 05/02/18at 10:00; Admin Dose 1 EA; Start 04/30/18 at 10:00 Morphine Sulfate (morphine) 6 mg Q4H PRN NGT SEVERE PAIN LEVEL 7-10; Start 04/30/18 at 21:30 Collagenase (Santyl) 1 applic DAILY TOP Last administered on 05/05/18at 09:01; Admin Dose 1 APPLIC; Start 05/02/18 at 16:00 Collagenase (Santyl) 1 applic DAILY TOP ; Start 05/06/18 at 09:00 Fentanyl (Sublimaze) 25 mcg PACU ORDER PRN IV MILD PAIN 1-3; Start 05/06/18 at 11:00; Stop 05/06/18 at 15:00 Fentanyl (Sublimaze) 50 mcg PACU ORDER PRN IV MOD PAIN 4-6; Start 05/06/18 at 11: 00; Stop 05/06/18 at 15:00 Fentanyl (Sublimaze) 75 mcg PACU ORDER PRN IV SEVERE PAIN 7-10; Start 05/06/18 at 11:00; Stop 05/06/18 at 15:00 Ondansetron HCl (Zofran Inj) 4 mg PACU ORDER PRN IV NAUSEA/VOMITING; Start 05/06/18 at 11:00; Stop 05/06/18 at 15:00 DAVONTE MCMAHAN NP May 06, 2018 12:20
[2018-05-06] MEDS ORDERED: FOSFOMYCIN 3 GM PACKET PO SCH (14:00)
[2018-05-06] MEDS: COLLAGENASE 5 GM (UD JAR) TOP SCH (18:39)
[2018-05-06] MEDS: TAMSULOSIN (SR) 0.4 MG CAP PO SCH (21:19)
[2018-05-06] MEDS: ZYVOX 600 MG TAB PO SCH (21:20)
[2018-05-07 02:52] VITALS: BP 126/67; PULSE 95; RESP 16
[2018-05-07] MEDS: LANSOPRAZOLE 30 MG CAP PO SCH ×2 (06:18→18:48)
[2018-05-07 07:28] VITALS: BP 128/77; PULSE 83; RESP 18
--- NOTE | 2018-05-07 08:45 | CONS ---
Assessment/Plan Assessment/Plan Hospital Course (Demo Recall) 88 yo male presented with urosepsis and respiratory failure and coffee ground emesis 1. Upper GI bleed manifested through coffee ground emesis and melena -s/p EGD -resolved 2. Gastric ulcers, etiology of bleed -resolved 3. Hiatal hernia 4. Anemia secondary to gastric ulcer bleeding -stable but slowly trending down, no active GI bleeding noted, FOB neg 04/16 -monitor closely -stable 5. UTI -VRE in urine cx 05/05 6. Dysphagia 7. Malnutrition. 8. Liver cirrhosis, with positive smooth muscle titer and smooth muscle ab interp POS 9. S/P EGD 05/06 in which PEG was not able to be placed 10. Mild gastritis 11. Hiatal hernia Gastric ulcer biopsy: -- Body mucosa showing focal dilation of gastric glands and a few scattered plasma cells in the superficial lamina propria. -- The features are suggestive of an early fundic gland polyp. -- No erosion or ulceration is identified. -- No Helicobacter organisms are seen in a Giemsa stain (positive control concurrently reviewed). -- There is no evidence of malignancy. Plan: Surgical or radiological placement of g tube Continue with tube feeds, monitor residuals through NGT Monitor HH Continue abx Pt examined and plan of care discussed with Dr. Gomes Consultation Date/Type/Reason Admit Date/Time Mar 27, 2018 at 20:08 Initial Consult Date 04/02/18 Requesting Provider: DEENA BASILIO Date/Time of Note DATE: 05/07/18 TIME: 08:39 24 HR Interval Summary Free Text/Dictation Pt denies any abdominal pain. No nausea. Says he feels good Exam/Review of Systems Exam Vitals Vital Signs Date Temp Pulse Resp B/P (MAP) Pulse Ox O2 O2 Flow FiO2 Time Delivery Rate 05/07/18 97.8 83 18 128/77 96 Room Air 07:28 (94) Intake and Output 05/06/18 05/06/18 05/07/18 1515:00 23:00 07:00 IntakeIntake Total 760 ml OutputOutput Total 400 ml 600 ml BalanceBalance -400 ml -600 ml 760 ml Constitutional: alert Psych: no complaints Eyes: PERRL Results Result Diagram: 05/07/18 0457 05/05/18 0441 Results 24hrs Laboratory Tests Test 05/07/18 04:57 White Blood Count 14.4 H Red Blood Count 3.09 L Hemoglobin 8.8 L Hematocrit 29.0 L Mean Corpuscular Volume 93.9 Mean Corpuscular Hemoglobin 28.5 L Mean Corpuscular Hemoglobin Concent 30.3 L Red Cell Distribution Width 16.4 H Platelet Count 351 Mean Platelet Volume 11.9 H Immature Granulocytes % 1.000 H Neutrophils % 76.7 Lymphocytes % 12.7 L Monocytes % 6.6 Eosinophils % 2.4 Basophils % 0.6 Nucleated Red Blood Cells % 0.0 Immature Granulocytes # 0.150 H Neutrophils # 11.1 H Lymphocytes # 1.8 Monocytes # 1.0 H Eosinophils # 0.4 Basophils # 0.1 Nucleated Red Blood Cells # 0.0 Medications Medication Current Medications Ascorbic Acid (Vitamin C) 500 mg DAILY NGT Last administered on 05/05/18 09:00; Admin Dose 500 MG; Start 04/09/18 at 14:00 Zinc Sulfate (Zinc Sulfate) 220 mg DAILY NGT Last administered on 05/05/18 09:00; Admin Dose 220 MG; Start 04/10/18 at 09:00 Lansoprazole (Prevacid) 30 mg BID@0600,1800 PO Last administered on 05/07/18 06:18; Admin Dose 30 MG; Start 04/14/18 at 18:00 Multivitamins (Multivitamin) 30 ml DAILY NGT Last administered on 05/05/18 09:01; Admin Dose 30 ML; Start 04/16/18 at 16:30 Morphine Sulfate (morphine) 6 mg Q4H PRN NGT SEVERE PAIN LEVEL 7-10; Start 04/30/18 at 21:30 Collagenase (Santyl) 1 applic DAILY TOP Last administered on 05/06/18 18:39; Admin Dose 1 APPLIC; Start 05/02/18 at 16:00 Tamsulosin HCl (Flomax) 0.4 mg HS PO Last administered on 05/06/18 21:19; Admin Dose 0.4 MG; Start 05/06/18 at 21:00 Linezolid (Zyvox) 600 mg BID PO Last administered on 05/06/18 21:20; Admin Dose 600 MG; Start 05/06/18 at 21:00 SOREN DOVE May 07, 2018 08:45
[2018-05-07] MEDS: ZINC SULFATE 220 MG CAP NGT SCH (09:00)
[2018-05-07] MEDS: ASCORBIC ACID 500 MG TAB NGT SCH (09:00)
[2018-05-07] MEDS: MULTIVITAMINS 30 ML CUP NGT SCH (09:00)
[2018-05-07] MEDS: ZYVOX 600 MG TAB PO SCH ×2 (09:00→20:24)
[2018-05-07] MEDS: COLLAGENASE 5 GM (UD JAR) TOP SCH (10:11)
--- NOTE | 2018-05-07 10:31 | CONS ---
Assessment/Plan Assessment/Plan Assessment/Plan (Daily) 1. Acute kidney injury on CKD due to ATN + prerenal azotemia 2. acute blood loss anemia- 3. acute hyperkalemia- now resolved 4. acute hypoxemic resp failure 5. Sepsis due to acute UTI 6. Severe metabolic acidosis due to FLORES 7. Hypernatremia - resolved 8. Upper GI bleeding Plan: BUN/Cr 38/0.92- other electrolytes stable, BP stable w/o midodrine, WBC still high 14.4 Renal US showed No evidence of hydronephrosis or mass, Nonobstructing intrarenal calculi are seen in the mid right kidney measuring 4 mm in 7 mm. 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.8 x 6.7 x 8.3 cm Plan for G tube placement tomorrow will follow up Consultation Date/Type/Reason Admit Date/Time Mar 27, 2018 at 20:08 Initial Consult Date 03/31/18 Type of Consult NEPHROLOGY Requesting Provider: DEENA BASILIO Date/Time of Note DATE: 05/07/18 TIME: 10:31 24 HR Interval Summary Free Text/Dictation plan for G tube placement tomorrow, BP has been stable, afebrile Exam/Review of Systems Exam Vitals Vital Signs Date Temp Pulse Resp B/P (MAP) Pulse Ox O2 O2 Flow FiO2 Time Delivery Rate 05/07/18 97.8 83 18 128/77 96 Room Air 07:28 (94) Intake and Output 05/06/18 05/06/18 05/07/18 1515:00 23:00 07:00 IntakeIntake Total 760 ml OutputOutput Total 400 ml 600 ml BalanceBalance -400 ml -600 ml 760 ml Exam Constitutional: alert Neck: supple, non-tender Respiratory: clear to auscultation, normal air movement, diminished breath sounds Cardiovascular: regular rate and rhythm, nl pulses Gastrointestinal: soft, non-tender Musculoskeletal: nl extremities to inspection + magaña catheter Results Result Diagram: 05/07/18 0457 05/05/18 0441 Results 24hrs Laboratory Tests Test 05/07/18 04:57 White Blood Count 14.4 H Red Blood Count 3.09 L Hemoglobin 8.8 L Hematocrit 29.0 L Mean Corpuscular Volume 93.9 Mean Corpuscular Hemoglobin 28.5 L Mean Corpuscular Hemoglobin Concent 30.3 L Red Cell Distribution Width 16.4 H Platelet Count 351 Mean Platelet Volume 11.9 H Immature Granulocytes % 1.000 H Neutrophils % 76.7 Lymphocytes % 12.7 L Monocytes % 6.6 Eosinophils % 2.4 Basophils % 0.6 Nucleated Red Blood Cells % 0.0 Immature Granulocytes # 0.150 H Neutrophils # 11.1 H Lymphocytes # 1.8 Monocytes # 1.0 H Eosinophils # 0.4 Basophils # 0.1 Nucleated Red Blood Cells # 0.0 Medications Medication Current Medications Ascorbic Acid (Vitamin C) 500 mg DAILY NGT Last administered on 05/05/18 09:00; Admin Dose 500 MG; Start 04/09/18 at 14:00 Zinc Sulfate (Zinc Sulfate) 220 mg DAILY NGT Last administered on 05/05/18 09:00; Admin Dose 220 MG; Start 04/10/18 at 09:00 Lansoprazole (Prevacid) 30 mg BID@0600,1800 PO Last administered on 05/07/18 06:18; Admin Dose 30 MG; Start 04/14/18 at 18:00 Multivitamins (Multivitamin) 30 ml DAILY NGT Last administered on 05/05/18 09:01; Admin Dose 30 ML; Start 04/16/18 at 16:30 Morphine Sulfate (morphine) 6 mg Q4H PRN NGT SEVERE PAIN LEVEL 7-10; Start 04/30/18 at 21:30 Collagenase (Santyl) 1 applic DAILY TOP Last administered on 05/07/18 10:11; Admin Dose 1 APPLIC; Start 05/02/18 at 16:00 Tamsulosin HCl (Flomax) 0.4 mg HS PO Last administered on 05/06/18 21:19; Admin Dose 0.4 MG; Start 05/06/18 at 21:00 Linezolid (Zyvox) 600 mg BID PO Last administered on 05/06/18 21:20; Admin Dose 600 MG; Start 05/06/18 at 21:00 STEVEN BLANCO MD May 07, 2018 10:31
--- NOTE | 2018-05-07 11:07 | CONS ---
Assessment/Plan Assessment/Plan Hospital Course (Demo Recall) All noted, no acute events, no fevers Microbiology: Urine culture growing VRE Antimicrobials: Zyvox s/p Fosfomycin Indwelling: NG tube Honeycutt Physical examination: Well-developed chronically ill-appearing wasted elderly man who is in no distress. Head atraumatic normocephalic sclera nonicteric. Neck is supple chest rise symmetrical breath sounds diminished bases. Heart: S1 -S2 abdomen distended tender on palpation extremities without cyanosis Assessment: 1. Recurrent UTI 2. Status post GI bleeding===> underwent EGD with Hemoclip placement 3. S/p E. coli ESBL UTI/ yeast UTI 4. History MRSA nares colonization 5. Dysphagia 6. Dementia Plan: Clinically stable, continue abx, will dc Honeycutt and monitor PVR Consultation Date/Type/Reason Admit Date/Time Mar 27, 2018 at 20:08 Initial Consult Date 04/02/18 Type of Consult ID Requesting Provider: DEENA BASILIO Date/Time of Note DATE: 05/07/18 TIME: 11:06 Exam/Review of Systems Exam Vitals Vital Signs Date Temp Pulse Resp B/P (MAP) Pulse Ox O2 O2 Flow FiO2 Time Delivery Rate 05/07/18 97.8 83 18 128/77 96 Room Air 07:28 (94) Intake and Output 05/06/18 05/06/18 05/07/18 1515:00 23:00 07:00 IntakeIntake Total 760 ml OutputOutput Total 400 ml 600 ml BalanceBalance -400 ml -600 ml 760 ml Results Result Diagram: 05/07/18 0457 05/05/18 0441 Results 24hrs Laboratory Tests Test 05/07/18 04:57 White Blood Count 14.4 H Red Blood Count 3.09 L Hemoglobin 8.8 L Hematocrit 29.0 L Mean Corpuscular Volume 93.9 Mean Corpuscular Hemoglobin 28.5 L Mean Corpuscular Hemoglobin Concent 30.3 L Red Cell Distribution Width 16.4 H Platelet Count 351 Mean Platelet Volume 11.9 H Immature Granulocytes % 1.000 H Neutrophils % 76.7 Lymphocytes % 12.7 L Monocytes % 6.6 Eosinophils % 2.4 Basophils % 0.6 Nucleated Red Blood Cells % 0.0 Immature Granulocytes # 0.150 H Neutrophils # 11.1 H Lymphocytes # 1.8 Monocytes # 1.0 H Eosinophils # 0.4 Basophils # 0.1 Nucleated Red Blood Cells # 0.0 Medications Medication Current Medications Ascorbic Acid (Vitamin C) 500 mg DAILY NGT Last administered on 05/05/18 09:00; Admin Dose 500 MG; Start 04/09/18 at 14:00 Zinc Sulfate (Zinc Sulfate) 220 mg DAILY NGT Last administered on 05/05/18 09:00; Admin Dose 220 MG; Start 04/10/18 at 09:00 Lansoprazole (Prevacid) 30 mg BID@0600,1800 PO Last administered on 05/07/18 06:18; Admin Dose 30 MG; Start 04/14/18 at 18:00 Multivitamins (Multivitamin) 30 ml DAILY NGT Last administered on 05/05/18 09:01; Admin Dose 30 ML; Start 04/16/18 at 16:30 Morphine Sulfate (morphine) 6 mg Q4H PRN NGT SEVERE PAIN LEVEL 7-10; Start 04/30/18 at 21:30 Collagenase (Santyl) 1 applic DAILY TOP Last administered on 05/07/18 10:11; Admin Dose 1 APPLIC; Start 05/02/18 at 16:00 Tamsulosin HCl (Flomax) 0.4 mg HS PO Last administered on 05/06/18 21:19; Admin Dose 0.4 MG; Start 05/06/18 at 21:00 Linezolid (Zyvox) 600 mg BID PO Last administered on 05/06/18 21:20; Admin Dose 600 MG; Start 05/06/18 at 21:00 DAVONTE MCMAHAN NP May 07, 2018 11:07
--- NOTE | 2018-05-07 11:42 | PN ---
Date/Time of Note Date/Time of Note DATE: 05/07/18 TIME: 11:39 Assessment/Plan VTE Prophylaxis Risk score (from Ns)>0 risk: 10 SCD applied (from Ns): Yes Pharmacological prophylaxis: NA/contraindicated Pharm contraindication: bleeding Lines/Catheters IV Catheter Type (from [facility]): Saline Lock Urinary Cath still in place: Yes Reason Cath still needed: urinary retention Assessment/Plan Hospital Course Patient status post EGD yesterday, G-tube could not be placed, plan for G-tube placement by radiology, patient remains hemodynamically stable awake continue NG tube feeding for now . Assessment/Plan -Possible aspiration pneumonia, continue antibiotics per ID. -Anemia secondary to GI bleed. Dr. Gomes is following in GI consultation. Transfuse as needed, monitor hemoglobin and hematocrit. -Bleeding gastric ulcers, s/p hemostasis with placement of hemoclip during EGD by Dr Guallpa on 04/03/18. Continue Protonix. -S/p septic shock secondary to urinary tract infection, continue antibiotics per ID. Dr. Guzman is following in infection disease consultation. -Hypoxemic respiratory failure, resolving. Dr. Nam is following in pulmonology consultation. -Acute kidney injury, resolved. Dr. Senior following in nephrology consultation. -Hypernatremia, resolved. 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 -Protein calorie malnutrition -S/P EGD 05/06 in which PEG was not able to be placed, plan for radiological surgical placement of G-tube -No family, patient is appropriate for PEG placement and DNR status as per decision of the bioethics committee Further recommendations based on clinical course. Plan of care discussed with Dr. Kiser. Result Diagram: 05/07/18 0457 05/05/18 0441 Results 24hrs Laboratory Tests Test 05/07/18 04:57 White Blood Count 14.4 H Red Blood Count 3.09 L Hemoglobin 8.8 L Hematocrit 29.0 L Mean Corpuscular Volume 93.9 Mean Corpuscular Hemoglobin 28.5 L Mean Corpuscular Hemoglobin Concent 30.3 L Red Cell Distribution Width 16.4 H Platelet Count 351 Mean Platelet Volume 11.9 H Immature Granulocytes % 1.000 H Neutrophils % 76.7 Lymphocytes % 12.7 L Monocytes % 6.6 Eosinophils % 2.4 Basophils % 0.6 Nucleated Red Blood Cells % 0.0 Immature Granulocytes # 0.150 H Neutrophils # 11.1 H Lymphocytes # 1.8 Monocytes # 1.0 H Eosinophils # 0.4 Basophils # 0.1 Nucleated Red Blood Cells # 0.0 Exam/Review of Systems Exam Vitals Vital Signs Date Temp Pulse Resp B/P (MAP) Pulse Ox O2 O2 Flow FiO2 Time Delivery Rate 05/07/18 97.8 83 18 128/77 96 Room Air 07:28 (94) Intake and Output 05/06/18 05/06/18 05/07/18 1414:59 22:59 06:59 IntakeIntake Total 760 ml OutputOutput Total 400 ml 600 ml BalanceBalance -400 ml -600 ml 760 ml Exam Constitutional: alert, oriented, frail ENMT: nl external ears & nose, other (NGT) Respiratory: diminished breath sounds Cardiovascular: nl pulses Gastrointestinal: soft, non-tender Musculoskeletal: muscle weakness Extremities: normal pulses Results Results 24hrs Laboratory Tests Test 05/07/18 04:57 White Blood Count 14.4 H Red Blood Count 3.09 L Hemoglobin 8.8 L Hematocrit 29.0 L Mean Corpuscular Volume 93.9 Mean Corpuscular Hemoglobin 28.5 L Mean Corpuscular Hemoglobin Concent 30.3 L Red Cell Distribution Width 16.4 H Platelet Count 351 Mean Platelet Volume 11.9 H Immature Granulocytes % 1.000 H Neutrophils % 76.7 Lymphocytes % 12.7 L Monocytes % 6.6 Eosinophils % 2.4 Basophils % 0.6 Nucleated Red Blood Cells % 0.0 Immature Granulocytes # 0.150 H Neutrophils # 11.1 H Lymphocytes # 1.8 Monocytes # 1.0 H Eosinophils # 0.4 Basophils # 0.1 Nucleated Red Blood Cells # 0.0 Medications Medication Current Medications Ascorbic Acid (Vitamin C) 500 mg DAILY NGT Last administered on 05/05/18at 09:00; Admin Dose 500 MG; Start 04/09/18 at 14:00 Zinc Sulfate (Zinc Sulfate) 220 mg DAILY NGT Last administered on 05/05/18at 09:00; Admin Dose 220 MG; Start 04/10/18 at 09:00 Lansoprazole (Prevacid) 30 mg BID@0600,1800 PO Last administered on 05/07/18 06:18; Admin Dose 30 MG; Start 04/14/18 at 18:00 Multivitamins (Multivitamin) 30 ml DAILY NGT Last administered on 05/05/18at 09:01; Admin Dose 30 ML; Start 04/16/18 at 16:30 Morphine Sulfate (morphine) 6 mg Q4H PRN NGT SEVERE PAIN LEVEL 7-10; Start 04/30/18 at 21:30 Collagenase (Santyl) 1 applic DAILY TOP Last administered on 05/07/18at 10:11; Admin Dose 1 APPLIC; Start 05/02/18 at 16:00 Tamsulosin HCl (Flomax) 0.4 mg HS PO Last administered on 05/06/18 21:19; Admin Dose 0.4 MG; Start 05/06/18 at 21:00 Linezolid (Zyvox) 600 mg BID PO Last administered on 05/06/18at 21:20; Admin Dose 600 MG; Start 05/06/18 at 21:00 JUDY CORNEJO May 07, 2018 11:42
[2018-05-07 13:54] VITALS: BP 142/66; PULSE 82; RESP 18
[2018-05-07 20:00] VITALS: BP 132/62; PULSE 82; RESP 18
[2018-05-07] MEDS: TAMSULOSIN (SR) 0.4 MG CAP PO SCH (20:24)
[2018-05-08] VITALS (18 sets, daily range): BP systolic 109–148; BP diastolic 61–78; PULSE 82–95; RESP 15–33
[2018-05-08] MEDS: LANSOPRAZOLE 30 MG CAP PO SCH ×2 (05:47→17:37)
--- NOTE | 2018-05-08 08:22 | CONS ---
Assessment/Plan Assessment/Plan Hospital Course (Demo Recall) 88 yo male presented with urosepsis and respiratory failure and coffee ground emesis 1. Upper GI bleed manifested through coffee ground emesis and melena -s/p EGD -resolved 2. Gastric ulcers, etiology of bleed -resolved 3. Hiatal hernia 4. Anemia secondary to gastric ulcer bleeding -stable but slowly trending down, no active GI bleeding noted, FOB neg 04/16 -monitor closely -stable 5. UTI -VRE in urine cx 05/05 6. Dysphagia 7. Malnutrition. 8. Liver cirrhosis, with positive smooth muscle titer and smooth muscle ab interp POS 9. S/P EGD 05/06 in which PEG was not able to be placed 10. Mild gastritis 11. Hiatal hernia Gastric ulcer biopsy: -- Body mucosa showing focal dilation of gastric glands and a few scattered plasma cells in the superficial lamina propria. -- The features are suggestive of an early fundic gland polyp. -- No erosion or ulceration is identified. -- No Helicobacter organisms are seen in a Giemsa stain (positive control concurrently reviewed). -- There is no evidence of malignancy. Plan: Radiological g tube placement today Monitor HH Continue abx Pt examined and plan of care discussed with Dr. Gomes Consultation Date/Type/Reason Admit Date/Time Mar 27, 2018 at 20:08 Initial Consult Date 04/02/18 Requesting Provider: DEENA BASILIO Date/Time of Note DATE: 05/08/18 TIME: 08:20 24 HR Interval Summary Free Text/Dictation Tolerating tube feeds. Regular bm. No evidence of GI bleeding. Denies abd pain. Exam/Review of Systems Exam Vitals Vital Signs Date Temp Pulse Resp B/P (MAP) Pulse Ox O2 O2 Flow FiO2 Time Delivery Rate 05/08/18 98.5 82 17 135/64 96 07:28 (87) 05/08/18 Room Air 01:56 Intake and Output 05/07/18 05/07/18 05/08/18 1515:00 23:00 07:00 IntakeIntake Total 230 ml OutputOutput Total 750 ml BalanceBalance -520 ml Constitutional: alert, oriented Psych: no complaints Head: normocephalic Gastrointestinal: soft, non-tender Neurological: confused Results Result Diagram: 05/08/18 0503 05/08/18 0503 Results 24hrs Laboratory Tests Test 05/08/18 05:03 White Blood Count 13.0 H Red Blood Count 3.41 L Hemoglobin 9.7 L Hematocrit 31.7 L Mean Corpuscular Volume 93.0 Mean Corpuscular Hemoglobin 28.4 L Mean Corpuscular Hemoglobin Concent 30.6 L Red Cell Distribution Width 16.4 H Platelet Count 307 Mean Platelet Volume 12.3 H Immature Granulocytes % 1.000 H Neutrophils % 74.0 Lymphocytes % 15.6 Monocytes % 6.7 Eosinophils % 2.0 Basophils % 0.7 Nucleated Red Blood Cells % 0.0 Immature Granulocytes # 0.130 H Neutrophils # 9.6 H Lymphocytes # 2.0 Monocytes # 0.9 Eosinophils # 0.3 Basophils # 0.1 Nucleated Red Blood Cells # 0.0 Sodium Level 149 H Potassium Level 4.6 Chloride Level 110 Carbon Dioxide Level 34 H Anion Gap 5 Blood Urea Nitrogen 33 H Creatinine 1.09 Est Glomerular Filtrat Rate mL/min Glucose Level 102 Calcium Level 9.5 Medications Medication Current Medications Ascorbic Acid (Vitamin C) 500 mg DAILY NGT Last administered on 05/05/18 09:00; Admin Dose 500 MG; Start 04/09/18 at 14:00 Zinc Sulfate (Zinc Sulfate) 220 mg DAILY NGT Last administered on 05/05/18 09:00; Admin Dose 220 MG; Start 04/10/18 at 09:00 Lansoprazole (Prevacid) 30 mg BID@0600,1800 PO Last administered on 05/07/18 18:48; Admin Dose 30 MG; Start 04/14/18 at 18:00 Multivitamins (Multivitamin) 30 ml DAILY NGT Last administered on 05/05/18 09:01; Admin Dose 30 ML; Start 04/16/18 at 16:30 Morphine Sulfate (morphine) 6 mg Q4H PRN NGT SEVERE PAIN LEVEL 7-10; Start 04/30/18 at 21:30 Collagenase (Santyl) 1 applic DAILY TOP Last administered on 05/07/18 10:11; Admin Dose 1 APPLIC; Start 05/02/18 at 16:00 Tamsulosin HCl (Flomax) 0.4 mg HS PO Last administered on 05/07/18 20:24; Admin Dose 0.4 MG; Start 05/06/18 at 21:00 Linezolid (Zyvox) 600 mg BID PO Last administered on 05/07/18at 20:24; Admin Dose 600 MG; Start 05/06/18 at 21:00 SOREN DOVE May 08, 2018 08:22
[2018-05-08] MEDS: ZINC SULFATE 220 MG CAP NGT SCH (09:00)
[2018-05-08] MEDS: MULTIVITAMINS 30 ML CUP NGT SCH (09:00)
[2018-05-08] MEDS: ZYVOX 600 MG TAB PO SCH ×2 (09:00→20:08)
[2018-05-08] MEDS: ASCORBIC ACID 500 MG TAB NGT SCH (09:00)
--- NOTE | 2018-05-08 10:10 | PREAC ---
Date/Time of Note Date/Time of Note DATE: 05/08/18 TIME: 10:07 Anesthesia Eval and Record Evaluation Time Pre-Procedure Interview DATE: 05/08/18 TIME: 10:07 Age 88 Sex male NPO: 8 hrs Preoperative diagnosis PEGplacement Planned procedure Dysphagia Past Medical History Past Medical History: Includes Pulm: Other (resdistress) Neuro: Other (quadroplegia) GI: Other (GIbleeding) Infection(s): Other (UTI) Surgery & Anesthesia Issues No known issue Meds Anticoagulation: No Beta Mike within 24 hr: No Reason Beta Mike not given: Pt. not on B-Mike Reported Medications Triamcinolone Acetonide* (Kenalog*) 0.1%-15GM Cr, 1 APPLIC TOP BID, #1 TUB 03/27/18 Collagenase* (Santyl*) 30 Gm Oint..gm., 1 APPLIC TOP .SOILED PRN for SOILED, #1 TUB 03/27/18 Hydrocodone/Acetaminophen (Lantry 5-325 Tablet) 1 Each Tablet, 1 EACH PO Q6H PRN for MILD PAIN LEVEL 1-3, TAB 03/27/18 Hydrocodone/Acetaminophen (Lantry 5-325 Tablet) 1 Each Tablet, 1 EACH PO DAILY PRN for WOUND CARE, TAB 03/27/18 Memantine* (Namenda* XR) 28 Mg Cap.spr.24, 28 MG PO DAILY, #30 TAB START TAKING-04/01/18 03/27/18 Memantine* (Namenda* XR) 21 Mg Cap.spr.24, 21 MG PO DAILY, #30 TAB FOR 7 DAYS,STOP TAKING 04/01/18 03/27/18 Enoxaparin Sodium* (Enoxaparin Sodium*) 30 Mg/0.3 Ml Syringe, 30 MG SC DAILY, SYR 03/27/18 Tamsulosin Hcl* (Tamsulosin Hcl*) 0.4 Mg Cap.er.24h, 0.4 MG PO HS, CAP 02/18/18 Protein Supplement (Promod) 946 Ml Liquid, 30 ML PO TID 02/18/18 Ondansetron Hcl* (Zofran*) 4 Mg Tab, 4 MG PO Q6H PRN for NAUSEA AND OR VOMITING, TAB 02/18/18 Multivitamin with Minerals (Multivitamins with Minerals) 1 Each Tablet, 1 EACH PO DAILY, TAB 02/18/18 Lactobacillus Acidophilus* (Lactinex*) 1 Tab Chew, 1 TAB PO BID, TAB 02/18/18 Famotidine* (Famotidine*) 20 Mg Tablet, 20 MG PO DAILY, #30 TAB 02/18/18 Docusate Sodium* (Docusate Sodium*) 100 Mg Capsule, 100 MG PO BID, #60 CAP 02/18/18 Bisacodyl* (Bisacodyl*) 10 Mg Supp, 10 MG OH Q24H for CONSTIPATION, SUPP 02/18/18 Ascorbic Acid (Vitamin C) 500 Mg Tab, 500 MG PO DAILY, TAB 02/18/18 Current Medications Ascorbic Acid (Vitamin C) 500 mg DAILY NGT Last administered on 05/05/18 09:00; Admin Dose 500 MG; Start 04/09/18 at 14:00 Zinc Sulfate (Zinc Sulfate) 220 mg DAILY NGT Last administered on 05/05/18 09:00; Admin Dose 220 MG; Start 04/10/18 at 09:00 Lansoprazole (Prevacid) 30 mg BID@0600,1800 PO Last administered on 05/07/18 18:48; Admin Dose 30 MG; Start 04/14/18 at 18:00 Multivitamins (Multivitamin) 30 ml DAILY NGT Last administered on 05/05/18 09:01; Admin Dose 30 ML; Start 04/16/18 at 16:30 Morphine Sulfate (morphine) 6 mg Q4H PRN NGT SEVERE PAIN LEVEL 7-10; Start 04/30/18 at 21:30 Collagenase (Santyl) 1 applic DAILY TOP Last administered on 05/07/18at 10:11; Admin Dose 1 APPLIC; Start 05/02/18 at 16:00 Tamsulosin HCl (Flomax) 0.4 mg HS PO Last administered on 05/07/18 20:24; Admin Dose 0.4 MG; Start 05/06/18 at 21:00 Linezolid (Zyvox) 600 mg BID PO Last administered on 05/07/18 20:24; Admin Dose 600 MG; Start 05/06/18 at 21:00 Meds reviewed: Yes Allergies Coded Allergies: No Known Allergy (Unverified , 04/06/18) Allergies Reviewed: Yes Labs/Studies Labs Reviewed: Reviewed by anesthesiologist Result Diagram: 05/08/18 0505 05/08/18 0503 Laboratory Tests 05/08/18 05:03 test: N/A Studies: ECG (sr), CXR (atherosclerosis,) Pre-procedure Exam Last vitals Vital Signs Date Temp Pulse Resp B/P (MAP) Pulse Ox O2 O2 Flow FiO2 Time Delivery Rate 05/08/18 98.5 82 17 135/64 96 07:28 (87) 05/08/18 Room Air 01:56 Airway: Adequate mouth opening Mallampati: Mallampati I Teeth: Normal Lung: Normal Heart: Normal ASA Physical Status ASA physical status: 3 Emergency: None Planned Anesthetic General/MAC: MAC, TIVA Pre-operative Attestations Prior to commencing anesthesia and surgery, the patient was re-evaluated, there was verification of: *The patient's identity *The results of appropriate recent lab work and preoperative vital signs *The above evaluation not changing prior to induction *Anesthetic plan, risk benefits, alternative and complications discussed with patient/family; questions answered; patient/family understands, accepts and wishes to proceed. SANDI TREJO MD May 08, 2018 10:10
[2018-05-08] MEDS ORDERED: DIATR MEGLU/DIATRIZOATE SODIUM 120 ML BTL ONE (10:52)
[2018-05-08] MEDS ORDERED: LIDOCAINE 1% (MPF) 5 ML VIAL ONE ×2 (11:04)
[2018-05-08] MEDS ORDERED: LABETALOL HCL 20MG INJ IV PRN (11:30)
[2018-05-08] MEDS ORDERED: FENTAnyl 50 MCG/ML VIAL IV PRN ×3 (11:30)
[2018-05-08] MEDS ORDERED: EPHEDrine SULFATE 50 MG/5 ML SYG IV PRN (11:30)
[2018-05-08] MEDS ORDERED: ONDANSETRON 4 MG INJ IV PRN (11:30)
[2018-05-08] MEDS ORDERED: hydrALAzine 20 MG INJ IV PRN (11:30)
--- NOTE | 2018-05-08 12:58 | HPN ---
Date/Time of Note Date/Time of Note DATE: 05/08/18 TIME: 12:57 Interval H&P Admission Note Pt. seen H&P reviewed: No system changes FOREST SOMERS MD May 08, 2018 12:58
--- NOTE | 2018-05-08 13:42 | PAC ---
Date/Time of Note Date/Time of Note DATE: 05/08/18 TIME: 13:41 Post-Anesthesia Notes Post-Anesthesia Note Last documented vital signs Vital Signs Date Temp Pulse Resp B/P (MAP) Pulse Ox O2 O2 Flow FiO2 Time Delivery Rate 05/08/18 98.5 88 17 135/70 98 Mask 8.0 13:00 (91) 05/08/18 17 07:28 Activity: WNL Respiratory function: WNL Cardiovascular function: WNL Mental status: Baseline Pain reasonably controlled: Yes Hydration appropriate: Yes Nausea/Vomiting absent: No SANDI TREJO MD May 08, 2018 13:42
--- NOTE | 2018-05-08 13:44 | CONS ---
Assessment/Plan Assessment/Plan Hospital Course (Demo Recall) No acute events, getting GT, significant urinary retention per RN Microbiology: Urine culture grew VRE Antimicrobials: Zyvox s/p Fosfomycin Indwelling: NG tube Honeycutt Physical examination: Well-developed chronically ill-appearing wasted elderly man who is in no distress. Head atraumatic normocephalic sclera nonicteric. Neck is supple chest rise symmetrical breath sounds diminished bases. Heart: S1-S2 abdomen distended tender on palpation extremities without cyanosis Assessment: 1. Recurrent UTI 2. Status post GI bleeding===> underwent EGD with Hemoclip placement 3. S/p E. coli ESBL UTI/ yeast UTI 4. History MRSA nares colonization 5. Dysphagia 6. Dementia Plan: Continue abx, Honeycutt to gravity, Flomax Consultation Date/Type/Reason Admit Date/Time Mar 27, 2018 at 20:08 Initial Consult Date 04/02/18 Type of Consult ID Requesting Provider: DEENA BASILIO Date/Time of Note DATE: 05/08/18 TIME: 13:43 Exam/Review of Systems Exam Vitals Vital Signs Date Temp Pulse Resp B/P (MAP) Pulse Ox O2 O2 Flow FiO2 Time Delivery Rate 05/08/18 86 20 98 Room Air 13:35 05/08/18 98.5 8.0 13:00 Intake and Output 05/07/18 05/07/18 05/08/18 1515:00 23:00 07:00 IntakeIntake Total 230 ml OutputOutput Total 750 ml BalanceBalance -520 ml Results Result Diagram: 05/08/18 0503 05/08/18 0503 Results 24hrs Laboratory Tests Test 05/08/18 05:03 White Blood Count 13.0 H Red Blood Count 3.41 L Hemoglobin 9.7 L Hematocrit 31.7 L Mean Corpuscular Volume 93.0 Mean Corpuscular Hemoglobin 28.4 L Mean Corpuscular Hemoglobin Concent 30.6 L Red Cell Distribution Width 16.4 H Platelet Count 307 Mean Platelet Volume 12.3 H Immature Granulocytes % 1.000 H Neutrophils % 74.0 Lymphocytes % 15.6 Monocytes % 6.7 Eosinophils % 2.0 Basophils % 0.7 Nucleated Red Blood Cells % 0.0 Immature Granulocytes # 0.130 H Neutrophils # 9.6 H Lymphocytes # 2.0 Monocytes # 0.9 Eosinophils # 0.3 Basophils # 0.1 Nucleated Red Blood Cells # 0.0 Sodium Level 149 H Potassium Level 4.6 Chloride Level 110 Carbon Dioxide Level 34 H Anion Gap 5 Blood Urea Nitrogen 33 H Creatinine 1.09 Est Glomerular Filtrat Rate mL/min Glucose Level 102 Calcium Level 9.5 Medications Medication Current Medications Ascorbic Acid (Vitamin C) 500 mg DAILY NGT Last administered on 05/05/18 09:00; Admin Dose 500 MG; Start 04/09/18 at 14:00 Zinc Sulfate (Zinc Sulfate) 220 mg DAILY NGT Last administered on 05/05/18 09:00; Admin Dose 220 MG; Start 04/10/18 at 09:00 Lansoprazole (Prevacid) 30 mg BID@0600,1800 PO Last administered on 05/07/18 18:48; Admin Dose 30 MG; Start 04/14/18 at 18:00 Multivitamins (Multivitamin) 30 ml DAILY NGT Last administered on 05/05/18 09:01; Admin Dose 30 ML; Start 04/16/18 at 16:30 Morphine Sulfate (morphine) 6 mg Q4H PRN NGT SEVERE PAIN LEVEL 7-10; Start 04/30/18 at 21:30 Collagenase (Santyl) 1 applic DAILY TOP Last administered on 05/07/18 10:11; Admin Dose 1 APPLIC; Start 05/02/18 at 16:00 Tamsulosin HCl (Flomax) 0.4 mg HS PO Last administered on 05/07/18 20:24; Admin Dose 0.4 MG; Start 05/06/18 at 21:00 Linezolid (Zyvox) 600 mg BID PO Last administered on 05/07/18 20:24; Admin Dose 600 MG; Start 05/06/18 at 21:00 Fentanyl (Sublimaze) 25 mcg PACU ORDER PRN IV MILD PAIN 1-3; Start 05/08/18 at 11:30; Stop 05/08/18 at 15:30 Fentanyl (Sublimaze) 50 mcg PACU ORDER PRN IV MOD PAIN 4-6; Start 05/08/18 at 11:30; Stop 05/08/18 at 15:30 Fentanyl (Sublimaze) 75 mcg PACU ORDER PRN IV SEVERE PAIN 7-10; Start 05/08/18 at 11:30; Stop 05/08/18 at 15:30 Ondansetron HCl (Zofran Inj) 4 mg PACU ORDER PRN IV NAUSEA/VOMITING; Start 05/08/18 at 11:30; Stop 05/08/18 at 15:30 Labetalol HCl (Labetalol) 5 mg PACU ORDER PRN IV HIGH BLOOD PRESSURE; Start 05/08/18 at 11:30; Stop 05/08/18 at 15:30 Hydralazine HCl (Apresoline) 5 mg PACU ORDER PRN IV HIGH BLOOD PRESSURE; Start 05/08/18 at 11:30; Stop 05/08/18 at 15:30 Ephedrine Sulfate 5 mg PACU ORDER PRN IV BLOOD PRESSURE SUPPORT; Start 05/08/18 at 11:30; Stop 05/08/18 at 15:30 DAVONTE MCMAHAN NP May 08, 2018 13:44
[2018-05-08] MEDS: COLLAGENASE 5 GM (UD JAR) TOP SCH (14:28)
--- NOTE | 2018-05-08 18:01 | CONS ---
Assessment/Plan Assessment/Plan Assessment/Plan (Daily) 1. Acute kidney injury on CKD due to ATN + prerenal azotemia 2. acute blood loss anemia- 3. acute hyperkalemia- now resolved 4. acute hypoxemic resp failure 5. Sepsis due to acute UTI 6. Severe metabolic acidosis due to FLORES 7. Hypernatremia - resolved 8. Upper GI bleeding Plan: BUN/Cr 33/1.09- other electrolytes stable, BP stable w/o midodrine, WBC 13 Renal US showed No evidence of hydronephrosis or mass, Nonobstructing intrarenal calculi are seen in the mid right kidney measuring 4 mm in 7 mm. 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.8 x 6.7 x 8.3 cm Plan for G tube placement today will follow up Consultation Date/Type/Reason Admit Date/Time Mar 27, 2018 at 20:08 Initial Consult Date 03/31/18 Type of Consult NEPHROLOGY Requesting Provider: DEENA BASILIO Date/Time of Note DATE: 05/08/18 TIME: 18:01 Exam/Review of Systems Exam Vitals Vital Signs Date Temp Pulse Resp B/P (MAP) Pulse Ox O2 O2 Flow FiO2 Time Delivery Rate 05/08/18 86 20 132/68 98 Room Air 13:35 (89) 05/08/18 98.5 8.0 13:00 Intake and Output 05/07/18 05/07/18 05/08/18 1515:00 23:00 07:00 IntakeIntake Total 230 ml OutputOutput Total 750 ml BalanceBalance -520 ml Exam Constitutional: alert Neck: supple, non-tender Respiratory: clear to auscultation, normal air movement, diminished breath sounds Cardiovascular: regular rate and rhythm, nl pulses Gastrointestinal: soft, non-tender Musculoskeletal: nl extremities to inspection + magaña catheter Results Result Diagram: 05/08/18 0503 05/08/18 0503 Results 24hrs Laboratory Tests Test 05/08/18 05:03 White Blood Count 13.0 H Red Blood Count 3.41 L Hemoglobin 9.7 L Hematocrit 31.7 L Mean Corpuscular Volume 93.0 Mean Corpuscular Hemoglobin 28.4 L Mean Corpuscular Hemoglobin Concent 30.6 L Red Cell Distribution Width 16.4 H Platelet Count 307 Mean Platelet Volume 12.3 H Immature Granulocytes % 1.000 H Neutrophils % 74.0 Lymphocytes % 15.6 Monocytes % 6.7 Eosinophils % 2.0 Basophils % 0.7 Nucleated Red Blood Cells % 0.0 Immature Granulocytes # 0.130 H Neutrophils # 9.6 H Lymphocytes # 2.0 Monocytes # 0.9 Eosinophils # 0.3 Basophils # 0.1 Nucleated Red Blood Cells # 0.0 Sodium Level 149 H Potassium Level 4.6 Chloride Level 110 Carbon Dioxide Level 34 H Anion Gap 5 Blood Urea Nitrogen 33 H Creatinine 1.09 Est Glomerular Filtrat Rate mL/min Glucose Level 102 Calcium Level 9.5 Medications Medication Current Medications Ascorbic Acid (Vitamin C) 500 mg DAILY NGT Last administered on 05/05/18 09:00; Admin Dose 500 MG; Start 04/09/18 at 14:00 Zinc Sulfate (Zinc Sulfate) 220 mg DAILY NGT Last administered on 05/05/18 09:00; Admin Dose 220 MG; Start 04/10/18 at 09:00 Lansoprazole (Prevacid) 30 mg BID@0600,1800 PO Last administered on 05/08/18 17:37; Admin Dose 30 MG; Start 04/14/18 at 18:00 Multivitamins (Multivitamin) 30 ml DAILY NGT Last administered on 05/05/18 09:01; Admin Dose 30 ML; Start 04/16/18 at 16:30 Morphine Sulfate (morphine) 6 mg Q4H PRN NGT SEVERE PAIN LEVEL 7-10; Start 04/30/18 at 21:30 Collagenase (Santyl) 1 applic DAILY TOP Last administered on 05/08/18 14:28; Admin Dose 1 APPLIC; Start 05/02/18 at 16:00 Tamsulosin HCl (Flomax) 0.4 mg HS PO Last administered on 05/07/18 20:24; Admin Dose 0.4 MG; Start 05/06/18 at 21:00 Linezolid (Zyvox) 600 mg BID PO Last administered on 05/07/18 20:24; Admin Dose 600 MG; Start 05/06/18 at 21:00 STEVEN BLANCO MD May 08, 2018 18:01
--- NOTE | 2018-05-08 19:51 | PN ---
Date/Time of Note Date/Time of Note DATE: 05/08/18 TIME: 19:46 Assessment/Plan VTE Prophylaxis Risk score (from Ns)>0 risk: 8 SCD applied (from Ns): Yes Pharmacological prophylaxis: NA/contraindicated Pharm contraindication: bleeding Lines/Catheters IV C[facility]ter Type (from [facility]): Peripheral IV Urinary Cath still in place: Yes Reason Cath still needed: urinary retention Assessment/Plan Hospital Course Patient status post G-tube placement by radiology today, plan to restart G-tube feeding tonight, increase rate gradually, closely monitor residual. Patient with urinary retention, Honeycutt catheter inserted. Assessment/Plan -VRE urinary tract infection, patient is currently on Zyvox. -Possible aspiration pneumonia, continue antibiotics per ID. -Anemia secondary to GI bleed. Dr. Gomes is following in GI consultation. Transfuse as needed, monitor hemoglobin and hematocrit. -Bleeding gastric ulcers, s/p hemostasis with placement of hemoclip during EGD by Dr Guallpa on 04/03/18. Continue Protonix. -S/p septic shock secondary to urinary tract infection, continue antibiotics per ID. Dr. Guzman is following in infection disease consultation. -Hypoxemic respiratory failure, resolving. Dr. Nam is following in pulmonology consultation. -Acute kidney injury, resolved. Dr. Senior following in nephrology consultation. -Hypernatremia, resolved. 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 -Protein calorie malnutrition -S/P EGD 05/06 in which PEG was not able to be placed, plan for radiological surgical placement of G-tube -No family, patient is appropriate for PEG placement and DNR status as per decision of the bioethics committee Further recommendations based on clinical course. Plan of care discussed with Dr. Kiser. Result Diagram: 05/08/18 0503 05/08/18 0503 Results 24hrs Laboratory Tests Test 05/08/18 05:03 White Blood Count 13.0 H Red Blood Count 3.41 L Hemoglobin 9.7 L Hematocrit 31.7 L Mean Corpuscular Volume 93.0 Mean Corpuscular Hemoglobin 28.4 L Mean Corpuscular Hemoglobin Concent 30.6 L Red Cell Distribution Width 16.4 H Platelet Count 307 Mean Platelet Volume 12.3 H Immature Granulocytes % 1.000 H Neutrophils % 74.0 Lymphocytes % 15.6 Monocytes % 6.7 Eosinophils % 2.0 Basophils % 0.7 Nucleated Red Blood Cells % 0.0 Immature Granulocytes # 0.130 H Neutrophils # 9.6 H Lymphocytes # 2.0 Monocytes # 0.9 Eosinophils # 0.3 Basophils # 0.1 Nucleated Red Blood Cells # 0.0 Sodium Level 149 H Potassium Level 4.6 Chloride Level 110 Carbon Dioxide Level 34 H Anion Gap 5 Blood Urea Nitrogen 33 H Creatinine 1.09 Est Glomerular Filtrat Rate mL/min Glucose Level 102 Calcium Level 9.5 Exam/Review of Systems Exam Vitals Vital Signs Date Temp Pulse Resp B/P (MAP) Pulse Ox O2 O2 Flow FiO2 Time Delivery Rate 05/08/18 109/61 14:38 (77) 05/08/18 86 23 97 13:47 05/08/18 Room Air 13:45 05/08/18 98.5 8.0 13:00 Intake and Output 05/07/18 05/07/18 05/08/18 1515:00 23:00 07:00 IntakeIntake Total 230 ml OutputOutput Total 750 ml BalanceBalance -520 ml Exam Constitutional: alert, oriented, frail ENMT: nl external ears & nose, other (NGT) Respiratory: diminished breath sounds Cardiovascular: nl pulses Gastrointestinal: soft, non-tender. GT Musculoskeletal: muscle weakness Extremities: normal pulses Results Results 24hrs Laboratory Tests Test 05/08/18 05:03 White Blood Count 13.0 H Red Blood Count 3.41 L Hemoglobin 9.7 L Hematocrit 31.7 L Mean Corpuscular Volume 93.0 Mean Corpuscular Hemoglobin 28.4 L Mean Corpuscular Hemoglobin Concent 30.6 L Red Cell Distribution Width 16.4 H Platelet Count 307 Mean Platelet Volume 12.3 H Immature Granulocytes % 1.000 H Neutrophils % 74.0 Lymphocytes % 15.6 Monocytes % 6.7 Eosinophils % 2.0 Basophils % 0.7 Nucleated Red Blood Cells % 0.0 Immature Granulocytes # 0.130 H Neutrophils # 9.6 H Lymphocytes # 2.0 Monocytes # 0.9 Eosinophils # 0.3 Basophils # 0.1 Nucleated Red Blood Cells # 0.0 Sodium Level 149 H Potassium Level 4.6 Chloride Level 110 Carbon Dioxide Level 34 H Anion Gap 5 Blood Urea Nitrogen 33 H Creatinine 1.09 Est Glomerular Filtrat Rate mL/min Glucose Level 102 Calcium Level 9.5 Medications Medication Current Medications Ascorbic Acid (Vitamin C) 500 mg DAILY NGT Last administered on 05/05/18 09:00; Admin Dose 500 MG; Start 04/09/18 at 14:00 Zinc Sulfate (Zinc Sulfate) 220 mg DAILY NGT Last administered on 05/05/18 09:00; Admin Dose 220 MG; Start 04/10/18 at 09:00 Lansoprazole (Prevacid) 30 mg BID@0600,1800 PO Last administered on 05/08/18 17:37; Admin Dose 30 MG; Start 04/14/18 at 18:00 Multivitamins (Multivitamin) 30 ml DAILY NGT Last administered on 05/05/18 0 9:01; Admin Dose 30 ML; Start 04/16/18 at 16:30 Morphine Sulfate (morphine) 6 mg Q4H PRN NGT SEVERE PAIN LEVEL 7-10; Start 04/30/18 at 21:30 Collagenase (Santyl) 1 applic DAILY TOP Last administered on 05/08/18 14:28; Admin Dose 1 APPLIC; Start 05/02/18 at 16:00 Tamsulosin HCl (Flomax) 0.4 mg HS PO Last administered on 05/07/18 20:24; Admin Dose 0.4 MG; Start 05/06/18 at 21:00 Linezolid (Zyvox) 600 mg BID PO Last administered on 05/07/18 20:24; Admin Dose 600 MG; Start 05/06/18 at 21:00 JUDY CORNEJO May 08, 2018 19:51
[2018-05-08] MEDS: TAMSULOSIN (SR) 0.4 MG CAP PO SCH (20:08)
[2018-05-09 02:20] VITALS: BP 135/68; PULSE 84; RESP 18
[2018-05-09] MEDS: LANSOPRAZOLE 30 MG CAP PO SCH ×2 (05:27→17:37)
[2018-05-09 08:11] VITALS: BP 138/66; PULSE 66; RESP 18
[2018-05-09] MEDS: MULTIVITAMINS 30 ML CUP NGT SCH (09:10)
[2018-05-09] MEDS: COLLAGENASE 5 GM (UD JAR) TOP SCH (09:10)
[2018-05-09] MEDS: ZINC SULFATE 220 MG CAP NGT SCH (09:10)
[2018-05-09] MEDS: ASCORBIC ACID 500 MG TAB NGT SCH (09:10)
[2018-05-09] MEDS: ZYVOX 600 MG TAB PO SCH ×2 (09:10→21:37)
--- NOTE | 2018-05-09 09:57 | CONS ---
Assessment/Plan Assessment/Plan Hospital Course (Demo Recall) 88 yo male presented with urosepsis and respiratory failure and coffee ground emesis 1. Upper GI bleed manifested through coffee ground emesis and melena -s/p EGD -resolved 2. Gastric ulcers, etiology of bleed -resolved 3. Hiatal hernia 4. Anemia secondary to gastric ulcer bleeding -stable but slowly trending down, no active GI bleeding noted, FOB neg 04/16 -monitor closely -stable 5. UTI -VRE in urine cx 05/05 6. Dysphagia 7. Malnutrition. 8. Liver cirrhosis, with positive smooth muscle titer and smooth muscle ab interp POS 9. S/P EGD 05/06 in which PEG was not able to be placed 10. Mild gastritis 11. Hiatal hernia Gastric ulcer biopsy: -- Body mucosa showing focal dilation of gastric glands and a few scattered plasma cells in the superficial lamina propria. -- The features are suggestive of an early fundic gland polyp. -- No erosion or ulceration is identified. -- No Helicobacter organisms are seen in a Giemsa stain (positive control concurrently reviewed). -- There is no evidence of malignancy. Plan: Continue with tube feeds, increase by 10cc q 4 hours to goal of 60cc Okay to restart pureed diet Aspiration precautions Monitor HH Continue abx Pt examined and plan of care discussed with Dr. Gomes Consultation Date/Type/Reason Admit Date/Time Mar 27, 2018 at 20:08 Initial Consult Date 04/02/18 Requesting Provider: DEENA BASILIO Date/Time of Note DATE: 05/09/18 TIME: 09:55 24 HR Interval Summary Free Text/Dictation G tube placed yesterday. Tolerating tube feeds at 30cc, goal of 60cc/hr. Denies abdominal pain and N/V. Exam/Review of Systems Exam Vitals Vital Signs Date Temp Pulse Resp B/P (MAP) Pulse Ox O2 O2 Flow FiO2 Time Delivery Rate 05/09/18 97.8 66 18 138/66 99 08:11 (90) 05/08/18 Room Air 13:45 05/08/18 8.0 13:00 Intake and Output 05/08/18 05/08/18 05/09/18 1414:59 22:59 06:59 IntakeIntake Total 390 ml OutputOutput Total 600 ml 450 ml BalanceBalance -600 ml -60 ml Constitutional: alert Psych: no complaints Eyes: PERRL Respiratory: clear to auscultation Gastrointestinal: soft, non-tender Musculoskeletal: nl extremities to inspection Neurological: confused Results Result Diagram: 05/09/1845705/09/18457 Results 24hrs Laboratory Tests Test 05/09/18 04:58 White Blood Count 9.8 # Red Blood Count 3.23 L Hemoglobin 9.1 L Hematocrit 30.6 L Mean Corpuscular Volume 94.7 Mean Corpuscular Hemoglobin 28.2 L Mean Corpuscular Hemoglobin Concent 29.7 L Red Cell Distribution Width 16.0 H Platelet Count 348 Mean Platelet Volume 11.7 H Immature Granulocytes % 0.600 H Neutrophils % 69.0 Lymphocytes % 19.4 Monocytes % 7.3 Eosinophils % 3.0 Basophils % 0.7 Nucleated Red Blood Cells % 0.0 Immature Granulocytes # 0.060 H Neutrophils # 6.7 Lymphocytes # 1.9 Monocytes # 0.7 Eosinophils # 0.3 Basophils # 0.1 Nucleated Red Blood Cells # 0.0 Sodium Level 150 H Potassium Level 3.9 Chloride Level 112 H Carbon Dioxide Level 35 H Anion Gap 3 L Blood Urea Nitrogen 30 H Creatinine 1.13 Est Glomerular Filtrat Rate mL/min Glucose Level 118 Calcium Level 9.2 Medications Medication Current Medications Ascorbic Acid (Vitamin C) 500 mg DAILY NGT Last administered on 05/09/18 09:10; Admin Dose 500 MG; Start 04/09/18 at 14:00 Zinc Sulfate (Zinc Sulfate) 220 mg DAILY NGT Last administered on 05/09/18 09:10; Admin Dose 220 MG; Start 04/10/18 at 09:00 Lansoprazole (Prevacid) 30 mg BID@0600,1800 PO Last administered on 05/09/18 05:27; Admin Dose 30 MG; Start 04/14/18 at 18:00 Multivitamins (Multivitamin) 30 ml DAILY NGT Last administered on 05/09/18 09:10; Admin Dose 30 ML; Start 04/16/18 at 16:30 Morphine Sulfate (morphine) 6 mg Q4H PRN NGT SEVERE PAIN LEVEL 7-10; Start 04/30/18 at 21:30 Collagenase (Santyl) 1 applic DAILY TOP Last administered on 05/09/18at 09:10; Admin Dose 1 APPLIC; Start 05/02/18 at 16:00 Tamsulosin HCl (Flomax) 0.4 mg HS PO Last administered on 05/08/18at 20:08; Admin Dose 0.4 MG; Start 05/06/18 at 21:00 Linezolid (Zyvox) 600 mg BID PO Last administered on 05/09/18at 09:10; Admin Dose 600 MG; Start 05/06/18 at 21:00 SOREN DOVE May 09, 2018 09:57
--- NOTE | 2018-05-09 11:08 | CONS ---
Assessment/Plan Assessment/Plan Hospital Course (Demo Recall) Awake, started on pureed diet, nad, no fevers Microbiology: Urine culture grew VRE Antimicrobials: Zyvox s/p Fosfomycin Indwelling: NG tube Honeycutt Physical examination: Well-developed chronically ill-appearing wasted elderly man who is in no distress. Head atraumatic normocephalic sclera nonicteric. Neck is supple chest rise symmetrical breath sounds diminished bases. Heart: S1-S2 abdomen distended tender on palpation extremities without cyanosis Assessment: 1. Recurrent UTI 2. Status post GI bleeding===> underwent EGD with Hemoclip placement 3. Urinary retention==> on Flomax 4. History MRSA nares colonization 5. Dysphagia 6. Dementia Plan: Stable, continue present care, repeat urine cx Consultation Date/Type/Reason Admit Date/Time Mar 27, 2018 at 20:08 Initial Consult Date 04/02/18 Type of Consult ID Requesting Provider: DEENA BASILIO Date/Time of Note DATE: 05/09/18 TIME: 11:07 Exam/Review of Systems Exam Vitals Vital Signs Date Temp Pulse Resp B/P (MAP) Pulse Ox O2 O2 Flow FiO2 Time Delivery Rate 05/09/18 97.8 66 18 138/66 99 08:11 (90) 05/08/18 Room Air 13:45 05/08/18 8.0 13:00 Intake and Output 05/08/18 05/08/18 05/09/18 1414:59 22:59 06:59 IntakeIntake Total 390 ml OutputOutput Total 600 ml 450 ml BalanceBalance -600 ml -60 ml Results Result Diagram: 05/09/18 0458 05/09/18 0458 Results 24hrs Laboratory Tests Test 05/09/18 04:58 White Blood Count 9.8 # Red Blood Count 3.23 L Hemoglobin 9.1 L Hematocrit 30.6 L Mean Corpuscular Volume 94.7 Mean Corpuscular Hemoglobin 28.2 L Mean Corpuscular Hemoglobin Concent 29.7 L Red Cell Distribution Width 16.0 H Platelet Count 348 Mean Platelet Volume 11.7 H Immature Granulocytes % 0.600 H Neutrophils % 69.0 Lymphocytes % 19.4 Monocytes % 7.3 Eosinophils % 3.0 Basophils % 0.7 Nucleated Red Blood Cells % 0.0 Immature Granulocytes # 0.060 H Neutrophils # 6.7 Lymphocytes # 1.9 Monocytes # 0.7 Eosinophils # 0.3 Basophils # 0.1 Nucleated Red Blood Cells # 0.0 Sodium Level 150 H Potassium Level 3.9 Chloride Level 112 H Carbon Dioxide Level 35 H Anion Gap 3 L Blood Urea Nitrogen 30 H Creatinine 1.13 Est Glomerular Filtrat Rate mL/min Glucose Level 118 Calcium Level 9.2 Medications Medication Current Medications Ascorbic Acid (Vitamin C) 500 mg DAILY NGT Last administered on 05/09/18 09:10; Admin Dose 500 MG; Start 04/09/18 at 14:00 Zinc Sulfate (Zinc Sulfate) 220 mg DAILY NGT Last administered on 05/09/18 09:10; Admin Dose 220 MG; Start 04/10/18 at 09:00 Lansoprazole (Prevacid) 30 mg BID@0600,1800 PO Last administered on 05/09/18 05:27; Admin Dose 30 MG; Start 04/14/18 at 18:00 Multivitamins (Multivitamin) 30 ml DAILY NGT Last administered on 05/09/18 09:10; Admin Dose 30 ML; Start 04/16/18 at 16:30 Morphine Sulfate (morphine) 6 mg Q4H PRN NGT SEVERE PAIN LEVEL 7-10; Start 04/30/18 at 21:30 Collagenase (Santyl) 1 applic DAILY TOP Last administered on 05/09/18 09:10; Admin Dose 1 APPLIC; Start 05/02/18 at 16:00 Tamsulosin HCl (Flomax) 0.4 mg HS PO Last administered on 05/08/18 20:08; Admin Dose 0.4 MG; Start 05/06/18 at 21:00 Linezolid (Zyvox) 600 mg BID PO Last administered on 05/09/18 09:10; Admin Dose 600 MG; Start 05/06/18 at 21:00 DAVONTE MCMAHAN NP May 09, 2018 11:08
--- NOTE | 2018-05-09 11:54 | CONS ---
Assessment/Plan Assessment/Plan Assessment/Plan (Daily) 1. Acute kidney injury on CKD due to ATN + prerenal azotemia 2. acute blood loss anemia- 3. acute hyperkalemia- now resolved 4. acute hypoxemic respiratory failure 5. Sepsis due to acute UTI 6. Severe metabolic acidosis due to FLORES 7. Hypernatremia - resolved 8. Upper GI bleeding 9. H/o BPH on Flomax Plan: BUN/Cr 33/1.13, Na trended upto 150 -I will give free water 100ml PO Q 4 hr x 48 hr through G tube WBC improved to 9.8 Renal US showed No evidence of hydronephrosis or mass, Nonobstructing intrarenal calculi are seen in the mid right kidney measuring 4 mm in 7 mm. 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.8 x 6.7 x 8.3 cm pt is on Zyvox 600mg PO BID , watch for metabolic acidosis will follow up Consultation Date/Type/Reason Admit Date/Time Mar 27, 2018 at 20:08 Initial Consult Date 03/31/18 Type of Consult NEPHROLOGY Requesting Provider: DEENA BASILIO Date/Time of Note DATE: 05/09/18 TIME: 11:53 24 HR Interval Summary Free Text/Dictation s/p CT guided placement of G tube Exam/Review of Systems Exam Vitals Vital Signs Date Temp Pulse Resp B/P (MAP) Pulse Ox O2 O2 Flow FiO2 Time Delivery Rate 05/09/18 97.8 66 18 138/66 99 08:11 (90) 05/08/18 Room Air 13:45 05/08/18 8.0 13:00 Intake and Output 05/08/18 05/08/18 05/09/18 1515:00 23:00 07:00 IntakeIntake Total 390 ml OutputOutput Total 600 ml 450 ml BalanceBalance -600 ml -60 ml Exam Constitutional: alert Neck: supple, non-tender Respiratory: clear to auscultation, normal air movement, diminished breath sounds Cardiovascular: regular rate and rhythm, nl pulses Gastrointestinal: soft, non-tender Musculoskeletal: nl extremities to inspection + magaña catheter Results Result Diagram: 05/09/18 0458 05/09/18 0458 Results 24hrs Laboratory Tests Test 05/09/18 04:58 White Blood Count 9.8 # Red Blood Count 3.23 L Hemoglobin 9.1 L Hematocrit 30.6 L Mean Corpuscular Volume 94.7 Mean Corpuscular Hemoglobin 28.2 L Mean Corpuscular Hemoglobin Concent 29.7 L Red Cell Distribution Width 16.0 H Platelet Count 348 Mean Platelet Volume 11.7 H Immature Granulocytes % 0.600 H Neutrophils % 69.0 Lymphocytes % 19.4 Monocytes % 7.3 Eosinophils % 3.0 Basophils % 0.7 Nucleated Red Blood Cells % 0.0 Immature Granulocytes # 0.060 H Neutrophils # 6.7 Lymphocytes # 1.9 Monocytes # 0.7 Eosinophils # 0.3 Basophils # 0.1 Nucleated Red Blood Cells # 0.0 Sodium Level 150 H Potassium Level 3.9 Chloride Level 112 H Carbon Dioxide Level 35 H Anion Gap 3 L Blood Urea Nitrogen 30 H Creatinine 1.13 Est Glomerular Filtrat Rate mL/min Glucose Level 118 Calcium Level 9.2 Medications Medication Current Medications Ascorbic Acid (Vitamin C) 500 mg DAILY NGT Last administered on 05/09/18 09:10; Admin Dose 500 MG; Start 04/09/18 at 14:00 Zinc Sulfate (Zinc Sulfate) 220 mg DAILY NGT Last administered on 05/09/18 09:10; Admin Dose 220 MG; Start 04/10/18 at 09:00 Lansoprazole (Prevacid) 30 mg BID@0600,1800 PO Last administered on 05/09/18 05:27; Admin Dose 30 MG; Start 04/14/18 at 18:00 Multivitamins (Multivitamin) 30 ml DAILY NGT Last administered on 05/09/18 09:10; Admin Dose 30 ML; Start 04/16/18 at 16:30 Morphine Sulfate (morphine) 6 mg Q4H PRN NGT SEVERE PAIN LEVEL 7-10; Start 04/30/18 at 21:30 Collagenase (Santyl) 1 applic DAILY TOP Last administered on 05/09/18 09:10; Admin Dose 1 APPLIC; Start 05/02/18 at 16:00 Tamsulosin HCl (Flomax) 0.4 mg HS PO Last administered on 05/08/18 20:08; Admin Dose 0.4 MG; Start 05/06/18 at 21:00 Linezolid (Zyvox) 600 mg BID PO Last administered on 05/09/18 09:10; Admin Dose 600 MG; Start 05/06/18 at 21:00 STEVEN BLANCO MD May 09, 2018 11:53
[2018-05-09 13:43] VITALS: BP 135/64; PULSE 89; RESP 18
--- NOTE | 2018-05-09 16:22 | PN ---
Date/Time of Note Date/Time of Note DATE: 05/09/18 TIME: 16:14 Assessment/Plan VTE Prophylaxis Risk score (from Ns)>0 risk: 7 SCD applied (from Ns): Yes Pharmacological prophylaxis: NA/contraindicated Pharm contraindication: bleeding Lines/Catheters [facility] Saline Lock Urinary Cath still in place: Yes Reason Cath still needed: urinary retention Assessment/Plan Hospital Course Patient with elevated sodium, continue free water via G-tube, BMP tomorrow, continue to increase G tube feeding to the goal rate, monitor residual. Assessment/Plan -VRE urinary tract infection, patient is currently on Zyvox. -Possible aspiration pneumonia, continue antibiotics per ID. -Anemia secondary to GI bleed. Dr. Gomes is following in GI consultation. Transfuse as needed, monitor hemoglobin and hematocrit. -Bleeding gastric ulcers, s/p hemostasis with placement of hemoclip during EGD by Dr Guallpa on 04/03/18. Continue Protonix. -S/p septic shock secondary to urinary tract infection, continue antibiotics per ID. Dr. Guzman is following in infection disease consultation. -Hypoxemic respiratory failure, resolving. Dr. Nam is following in pulmonology consultation. -Acute kidney injury, resolved. Dr. Senior following in nephrology consultation. -Hypernatremia, resolved. 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 -Protein calorie malnutrition -S/P EGD 05/06 in which PEG was not able to be placed, plan for radiological surgical placement of G-tube -No family, patient is appropriate for PEG placement and DNR status as per decision of the bioethics committee -Urinary retention, continue Honeycutt catheter Further recommendations based on clinical course. Plan of care discussed with Dr. Kiser. Result Diagram: 05/09/188 05/09/188 Results 24hrs Laboratory Tests Test 05/09/18 04:58 White Blood Count 9.8 # Red Blood Count 3.23 L Hemoglobin 9.1 L Hematocrit 30.6 L Mean Corpuscular Volume 94.7 Mean Corpuscular Hemoglobin 28.2 L Mean Corpuscular Hemoglobin Concent 29.7 L Red Cell Distribution Width 16.0 H Platelet Count 348 Mean Platelet Volume 11.7 H Immature Granulocytes % 0.600 H Neutrophils % 69.0 Lymphocytes % 19.4 Monocytes % 7.3 Eosinophils % 3.0 Basophils % 0.7 Nucleated Red Blood Cells % 0.0 Immature Granulocytes # 0.060 H Neutrophils # 6.7 Lymphocytes # 1.9 Monocytes # 0.7 Eosinophils # 0.3 Basophils # 0.1 Nucleated Red Blood Cells # 0.0 Sodium Level 150 H Potassium Level 3.9 Chloride Level 112 H Carbon Dioxide Level 35 H Anion Gap 3 L Blood Urea Nitrogen 30 H Creatinine 1.13 Est Glomerular Filtrat Rate mL/min Glucose Level 118 Calcium Level 9.2 Exam/Review of Systems Exam Vitals Vital Signs Date Temp Pulse Resp B/P (MAP) Pulse Ox O2 O2 Flow FiO2 Time Delivery Rate 05/09/18 98.2 89 18 135/64 98 13:43 (87) 05/08/18 Room Air 13:45 05/08/18 8.0 13:00 Intake and Output 05/08/18 05/08/18 05/09/18 1515:00 23:00 07:00 IntakeIntake Total 390 ml OutputOutput Total 600 ml 450 ml BalanceBalance -600 ml -60 ml Exam Constitutional: alert, oriented, frail ENMT: nl external ears & nose, other (NGT) Respiratory: diminished breath sounds Cardiovascular: nl pulses Gastrointestinal: soft, non-tender. GT Musculoskeletal: muscle weakness Extremities: normal pulses Results Results 24hrs Laboratory Tests Test 05/09/18 04:58 White Blood Count 9.8 # Red Blood Count 3.23 L Hemoglobin 9.1 L Hematocrit 30.6 L Mean Corpuscular Volume 94.7 Mean Corpuscular Hemoglobin 28.2 L Mean Corpuscular Hemoglobin Concent 29.7 L Red Cell Distribution Width 16.0 H Platelet Count 348 Mean Platelet Volume 11.7 H Immature Granulocytes % 0.600 H Neutrophils % 69.0 Lymphocytes % 19.4 Monocytes % 7.3 Eosinophils % 3.0 Basophils % 0.7 Nucleated Red Blood Cells % 0.0 Immature Granulocytes # 0.060 H Neutrophils # 6.7 Lymphocytes # 1.9 Monocytes # 0.7 Eosinophils # 0.3 Basophils # 0.1 Nucleated Red Blood Cells # 0.0 Sodium Level 150 H Potassium Level 3.9 Chloride Level 112 H Carbon Dioxide Level 35 H Anion Gap 3 L Blood Urea Nitrogen 30 H Creatinine 1.13 Est Glomerular Filtrat Rate mL/min Glucose Level 118 Calcium Level 9.2 Medications Medication Current Medications Ascorbic Acid (Vitamin C) 500 mg DAILY NGT Last administered on 05/09/18 09:10; Admin Dose 500 MG; Start 04/09/18 at 14:00 Zinc Sulfate (Zinc Sulfate) 220 mg DAILY NGT Last administered on 05/09/18 09:10; Admin Dose 220 MG; Start 04/10/18 at 09:00 Lansoprazole (Prevacid) 30 mg BID@0600,1800 PO Last administered on 05/09/18 05:27; Admin Dose 30 MG; Start 04/14/18 at 18:00 Multivitamins (Multivitamin) 30 ml DAILY NGT Last administered on 05/09/18 09:10; Admin Dose 30 ML; Start 04/16/18 at 16:30 Morphine Sulfate (morphine) 6 mg Q4H PRN NGT SEVERE PAIN LEVEL 7-10; Start at 21:30 Collagenase (Santyl) 1 applic DAILY TOP Last administered on 05/09/18 09:10; Admin Dose 1 APPLIC; Start 05/02/18 at 16:00 Tamsulosin HCl (Flomax) 0.4 mg HS PO Last administered on 05/08/18 20:08; Admin Dose 0.4 MG; Start 05/06/18 at 21:00 Linezolid (Zyvox) 600 mg BID PO Last administered on 05/09/18 09:10; Admin Dose 600 MG; Start 05/06/18 at 21:00 Miscellaneous Information (*Order Clarification Bulletin) MEDICATION REQUIRES CLARIFICATI... Q8H XX ; Start 05/09/18 at 14:30; Stop 05/11/18 at 14:29 JUDY CORNEJO May 09, 2018 16:22
[2018-05-09 19:30] VITALS: BP 119/87; PULSE 87; RESP 16
[2018-05-09] MEDS: TAMSULOSIN (SR) 0.4 MG CAP PO SCH (21:37)
[2018-05-10 01:30] VITALS: BP 115/60; PULSE 74; RESP 16
[2018-05-10] MEDS: LANSOPRAZOLE 30 MG CAP PO SCH ×2 (05:29→17:25)
[2018-05-10 07:56] VITALS: BP 119/58; PULSE 79; RESP 20
[2018-05-10] MEDS: ZINC SULFATE 220 MG CAP NGT SCH (08:31)
[2018-05-10] MEDS: ZYVOX 600 MG TAB PO SCH ×2 (08:31→20:33)
[2018-05-10] MEDS: ASCORBIC ACID 500 MG TAB NGT SCH (08:31)
[2018-05-10] MEDS: MULTIVITAMINS 30 ML CUP NGT SCH (08:31)
[2018-05-10] MEDS: COLLAGENASE 5 GM (UD JAR) TOP SCH (08:31)
--- NOTE | 2018-05-10 11:42 | CONS ---
Consultation Date/Type/Reason Admit Date/Time Mar 27, 2018 at 20:08 Initial Consult Date 03/31/18 Type of Consult NEPHROLOGY Requesting Provider: DEENA BASILIO Date/Time of Note DATE: 05/10/18 TIME: 11:42 Exam/Review of Systems Exam Vitals Vital Signs Date Temp Pulse Resp B/P (MAP) Pulse Ox O2 O2 Flow FiO2 Time Delivery Rate 05/10/18 97.9 79 20 119/58 98 Room Air 07:56 (78) 05/08/18 8.0 13:00 Intake and Output 05/09/18 05/09/18 05/10/18 1515:00 23:00 07:00 IntakeIntake Total 1470 ml 850 ml OutputOutput Total 700 ml BalanceBalance 770 ml 850 ml Results Result Diagram: 05/09/18 0458 05/10/18 0453 Results 24hrs Laboratory Tests Test 05/10/18 04:53 Sodium Level 147 H Potassium Level 3.9 Chloride Level 115 H Carbon Dioxide Level 33 H Anion Gap -1 L Blood Urea Nitrogen 32 H Creatinine 1.12 Est Glomerular Filtrat Rate mL/min Glucose Level 157 Calcium Level 8.7 Medications Medication Current Medications Ascorbic Acid (Vitamin C) 500 mg DAILY NGT Last administered on 05/10/18 08:31; Admin Dose 500 MG; Start 04/09/18 at 14:00 Zinc Sulfate (Zinc Sulfate) 220 mg DAILY NGT Last administered on 05/10/18 08:31; Admin Dose 220 MG; Start 04/10/18 at 09:00 Lansoprazole (Prevacid) 30 mg BID@0600,1800 PO Last administered on 05/10/18at 05:29; Admin Dose 30 MG; Start 04/14/18 at 18:00 Multivitamins (Multivitamin) 30 ml DAILY NGT Last administered on 05/10/18 08:31; Admin Dose 30 ML; Start 04/16/18 at 16:30 Morphine Sulfate (morphine) 6 mg Q4H PRN NGT SEVERE PAIN LEVEL 7-10; Start 04/30/18 at 21:30 Collagenase (Santyl) 1 applic DAILY TOP Last administered on 05/10/18 08:31; Admin Dose 1 APPLIC; Start 05/02/18 at 16:00 Tamsulosin HCl (Flomax) 0.4 mg HS PO Last administered on 05/09/18at 21:37; Admin Dose 0.4 MG; Start 05/06/18 at 21:00 Linezolid (Zyvox) 600 mg BID PO Last administered on 05/10/18at 08:31; Admin Dose 600 MG; Start 05/06/18 at 21:00 STEVEN BLANCO MD May 10, 2018 11:42
--- NOTE | 2018-05-10 11:43 | CONS ---
Consultation Date/Type/Reason Admit Date/Time Mar 27, 2018 at 20:08 Initial Consult Date SUBJECTIVE: Pt is sleepy, with NG tube intact. No fevers. no acute events over night VS: stable. T: 97.9 LABS: reviewed. Antibacterials: Zyvox. s/p Fosfomycin MICROBIOLOGY: repeat UA culture URINE CULTURE Preliminary NO GROWTH AFTER 24 HOURS Indwelling: NG tube Honeycutt Physical examination: GEN: Well-developed chronically ill-appearing wasted elderly man who is in no distress. HENT: Head atraumatic normocephalic sclera nonicteric. Neck is supple PULM: chest rise symmetrical, breath sounds diminished bases. Heart: S1-S2 ABDOEN: distended tender on palpation EXTREM: without cyanosis Assessment: 1. Recurrent UTI 2. Status post GI bleeding===> underwent EGD with Hemoclip placement 3. Urinary retention==> on Flomax 4. History MRSA nares colonization 5. Dysphagia 6. Dementia Plan: Patient is stable. Continue current antbx treatment. Repeat UA culture pending final results. Requesting Provider: DEENA BASILIO Date/Time of Note DATE: 05/10/18 TIME: 11:40 Exam/Review of Systems Exam Vitals Vital Signs Date Temp Pulse Resp B/P (MAP) Pulse Ox O2 O2 Flow FiO2 Time Delivery Rate 05/10/18 97.9 79 20 119/58 98 Room Air 07:56 (78) 05/08/18 8.0 13:00 Intake and Output 05/09/18 05/09/18 05/10/18 1515:00 23:00 07:00 IntakeIntake Total 1470 ml 850 ml OutputOutput Total 700 ml BalanceBalance 770 ml 850 ml Results Result Diagram: 05/09/18 0458 05/10/18 0453 Results 24hrs Laboratory Tests Test 05/10/18 04:53 Sodium Level 147 H Potassium Level 3.9 Chloride Level 115 H Carbon Dioxide Level 33 H Anion Gap -1 L Blood Urea Nitrogen 32 H Creatinine 1.12 Est Glomerular Filtrat Rate mL/min Glucose Level 157 Calcium Level 8.7 Medications Medication Current Medications Ascorbic Acid (Vitamin C) 500 mg DAILY NGT Last administered on 05/10/18at 08:31; Admin Dose 500 MG; Start 04/09/18 at 14:00 Zinc Sulfate (Zinc Sulfate) 220 mg DAILY NGT Last administered on 05/10/18 08:31; Admin Dose 220 MG; Start 04/10/18 at 09:00 Lansoprazole (Prevacid) 30 mg BID@0600,1800 PO Last administered on 05/10/18 05:29; Admin Dose 30 MG; Start 04/14/18 at 18:00 Multivitamins (Multivitamin) 30 ml DAILY NGT Last administered on 05/10/18 08:31; Admin Dose 30 ML; Start 04/16/18 at 16:30 Morphine Sulfate (morphine) 6 mg Q4H PRN NGT SEVERE PAIN LEVEL 7-10; Start 04/30/18 at 21:30 Collagenase (Santyl) 1 applic DAILY TOP Last administered on 05/10/18 08:31; Admin Dose 1 APPLIC; Start 05/02/18 at 16:00 Tamsulosin HCl (Flomax) 0.4 mg HS PO Last administered on 05/09/18 21:37; Admin Dose 0.4 MG; Start 05/06/18 at 21:00 Linezolid (Zyvox) 600 mg BID PO Last administered on 05/10/18 08:31; Admin Dose 600 MG; Start 05/06/18 at 21:00 MARITZA HELLER May 10, 2018 11:43
--- NOTE | 2018-05-10 12:19 | PN ---
Date/Time of Note Date/Time of Note DATE: 05/10/18 TIME: 12:18 Assessment/Plan VTE Prophylaxis Risk score (from Nsg)>0 risk: 7 SCD applied (from Nsg): Yes Pharmacological prophylaxis: LMWH Lines/Catheters IV Catheter Type (from Nrsg): Peripheral IV Urinary Cath still in place: Yes Reason Cath still needed: skin wounds contaminated by urine Assessment/Plan Hospital Course -VRE urinary tract infection, patient is currently on Zyvox. -Possible aspiration pneumonia, continue antibiotics per ID. -Anemia secondary to GI bleed. Dr. Gomes is following in GI consultation. Transfuse as needed, monitor hemoglobin and hematocrit. -Bleeding gastric ulcers, s/p hemostasis with placement of hemoclip during EGD by Dr Guallpa on 04/03/18. Continue Protonix. -S/p septic shock secondary to urinary tract infection, continue antibiotics per ID. Dr. Guzman is following in infection disease consultation. -Hypoxemic respiratory failure, resolving. Dr. Nam is following in pulmonology consultation. -Acute kidney injury, resolved. Dr. Senior following in nephrology consultation. -Hypernatremia, resolved. 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 -Protein calorie malnutrition -S/P EGD 05/06 in which PEG was not able to be placed, plan for radiological surgical placement of G-tube -No family, patient is appropriate for PEG placement and DNR status as per decision of the bioethics committee -Urinary retention, continue Honeycutt catheter Result Diagram: 05/09/18 0458 05/10/18 0453 Results 24hrs Laboratory Tests Test 05/10/18 04:53 Sodium Level 147 H Potassium Level 3.9 Chloride Level 115 H Carbon Dioxide Level 33 H Anion Gap -1 L Blood Urea Nitrogen 32 H Creatinine 1.12 Est Glomerular Filtrat Rate mL/min Glucose Level 157 Calcium Level 8.7 Subjective 24 Hr Interval Summary Free Text/Dictation Patient has no complaints Exam/Review of Systems Exam Vitals Vital Signs Date Temp Pulse Resp B/P (MAP) Pulse Ox O2 O2 Flow FiO2 Time Delivery Rate 05/10/18 97.9 79 20 119/58 98 Room Air 07:56 (78) 05/08/18 8.0 13:00 Intake and Output 05/09/18 05/09/18 05/10/18 1414:59 22:59 06:59 IntakeIntake Total 1470 ml 850 ml OutputOutput Total 700 ml BalanceBalance 770 ml 850 ml Constitutional: well developed Head: normocephalic, atraumatic Neck: supple Respiratory: diminished breath sounds Cardiovascular: regular rate and rhythm Gastrointestinal: soft, non-tender Extremities: normal pulses Results Results 24hrs Laboratory Tests Test 05/10/18 04:53 Sodium Level 147 H Potassium Level 3.9 Chloride Level 115 H Carbon Dioxide Level 33 H Anion Gap -1 L Blood Urea Nitrogen 32 H Creatinine 1.12 Est Glomerular Filtrat Rate mL/min Glucose Level 157 Calcium Level 8.7 Medications Medication Current Medications Ascorbic Acid (Vitamin C) 500 mg DAILY NGT Last administered on 05/10/18 08:31; Admin Dose 500 MG; Start 04/09/18 at 14:00 Zinc Sulfate (Zinc Sulfate) 220 mg DAILY NGT Last administered on 05/10/18 08:31; Admin Dose 220 MG; Start 04/10/18 at 09:00 Lansoprazole (Prevacid) 30 mg BID@0600,1800 PO Last administered on 05/10/18 05:29; Admin Dose 30 MG; Start 04/14/18 at 18:00 Multivitamins (Multivitamin) 30 ml DAILY NGT Last administered on 05/10/18 08:31; Admin Dose 30 ML; Start 04/16/18 at 16:30 Morphine Sulfate (morphine) 6 mg Q4H PRN NGT SEVERE PAIN LEVEL 7-10; Start 04/30/18 at 21:30 Collagenase (Santyl) 1 applic DAILY TOP Last administered on 05/10/18 08:31; Admin Dose 1 APPLIC; Start 05/02/18 at 16:00 Tamsulosin HCl (Flomax) 0.4 mg HS PO Last administered on 05/09/18 21:37; Admin Dose 0.4 MG; Start 05/06/18 at 21:00 Linezolid (Zyvox) 600 mg BID PO Last administered on 05/10/18 08:31; Admin Dose 600 MG; Start 05/06/18 at 21:00 DEENA BASILIO May 10, 2018 12:19
--- NOTE | 2018-05-10 13:57 | CONS ---
Assessment/Plan Assessment/Plan Assessment/Plan (Daily) 1. Upper GI bleed manifested through coffee ground emesis and melena -s/p EGD -resolved 2. Gastric ulcers, etiology of bleed -resolved 3. Hiatal hernia 4. Anemia secondary to gastric ulcer bleeding -stable but slowly trending down, no active GI bleeding noted, FOB neg 04/16 -monitor closely -stable 5. UTI -VRE in urine cx 05/05 6. Dysphagia status post radiological G-tube placement 7. Malnutrition. 8. Liver cirrhosis, with positive smooth muscle titer and smooth muscle ab interp POS 9. S/P EGD 05/06 in which PEG was not able to be placed secondary to hiatal hernia 10. Mild gastritis 11. Hiatal hernia Gastric ulcer biopsy: -- Body mucosa showing focal dilation of gastric glands and a few scattered plasma cells in the superficial lamina propria. -- The features are suggestive of an early fundic gland polyp. -- No erosion or ulceration is identified. -- No Helicobacter organisms are seen in a Giemsa stain (positive control concurrently reviewed). -- There is no evidence of malignancy. Plan: Continue with tube feeds, increase by 10cc q 4 hours to goal of 60cc Okay to restart pureed diet Aspiration precautions Monitor HH Continue abx Consultation Date/Type/Reason Admit Date/Time Mar 27, 2018 at 20:08 Initial Consult Date 04/02/18 Requesting Provider: DEENA BASILIO Date/Time of Note DATE: 05/10/18 TIME: 13:56 24 HR Interval Summary Constitutional: no complaints Exam/Review of Systems Exam Vitals Vital Signs Date Temp Pulse Resp B/P (MAP) Pulse Ox O2 O2 Flow FiO2 Time Delivery Rate 05/10/18 97.9 79 20 119/58 98 Room Air 07:56 (78) 05/08/18 8.0 13:00 Intake and Output 05/09/18 05/09/18 05/10/18 1515:00 23:00 07:00 IntakeIntake Total 1470 ml 850 ml OutputOutput Total 700 ml BalanceBalance 770 ml 850 ml Constitutional: alert Psych: no complaints Eyes: nl conjunctiva, EOMI, nl lids, nl sclera, PERRL ENMT: nl external ears & nose, nl lips & teeth, nl nasal mucosa & septum Neck: non-tender Cardiovascular: nl pulses Gastrointestinal: soft, nl liver, spleen, non-tender Results Result Diagram: 05/09/18 0458 05/10/18 0453 Results 24hrs Laboratory Tests Test 05/10/18 04:53 Sodium Level 147 H Potassium Level 3.9 Chloride Level 115 H Carbon Dioxide Level 33 H Anion Gap -1 L Blood Urea Nitrogen 32 H Creatinine 1.12 Est Glomerular Filtrat Rate mL/min Glucose Level 157 Calcium Level 8.7 Medications Medication Current Medications Ascorbic Acid (Vitamin C) 500 mg DAILY NGT Last administered on 05/10/18 08:31; Admin Dose 500 MG; Start 04/09/18 at 14:00 Zinc Sulfate (Zinc Sulfate) 220 mg DAILY NGT Last administered on 05/10/18 08:31; Admin Dose 220 MG; Start 04/10/18 at 09:00 Lansoprazole (Prevacid) 30 mg BID@0600,1800 PO Last administered on 05/10/18 05:29; Admin Dose 30 MG; Start 04/14/18 at 18:00 Multivitamins (Multivitamin) 30 ml DAILY NGT Last administered on 05/10/18 08:31; Admin Dose 30 ML; Start 04/16/18 at 16:30 Morphine Sulfate (morphine) 6 mg Q4H PRN NGT SEVERE PAIN LEVEL 7-10; Start 04/30/18 at 21:30 Collagenase (Santyl) 1 applic DAILY TOP Last administered on 05/10/18 08:31; Admin Dose 1 APPLIC; Start 05/02/18 at 16:00 Tamsulosin HCl (Flomax) 0.4 mg HS PO Last administered on 05/09/18 21:37; Admin Dose 0.4 MG; Start 05/06/18 at 21:00 Linezolid (Zyvox) 600 mg BID PO Last administered on 05/10/18 08:31; Admin Dose 600 MG; Start 05/06/18 at 21:00 ATTILA UMANZOR MD May 10, 2018 13:57
[2018-05-10 14:48] VITALS: BP 131/62; PULSE 91; RESP 20
[2018-05-10 19:55] VITALS: BP 134/60; PULSE 92; RESP 16
[2018-05-10] MEDS: TAMSULOSIN (SR) 0.4 MG CAP PO SCH (20:33)
[2018-05-11 02:05] VITALS: BP 113/57; PULSE 81; RESP 18
[2018-05-11] MEDS: LANSOPRAZOLE 30 MG CAP PO SCH ×2 (06:18→18:33)
[2018-05-11 07:24] VITALS: BP 121/56; PULSE 86; RESP 18
[2018-05-11] MEDS: ASCORBIC ACID 500 MG TAB NGT SCH (08:04)
[2018-05-11] MEDS: MULTIVITAMINS 30 ML CUP NGT SCH (08:04)
[2018-05-11] MEDS: COLLAGENASE 5 GM (UD JAR) TOP SCH (08:04)
[2018-05-11] MEDS: ZINC SULFATE 220 MG CAP NGT SCH (08:04)
[2018-05-11] MEDS: ZYVOX 600 MG TAB PO SCH ×2 (08:04→20:08)
--- NOTE | 2018-05-11 13:06 | PN ---
Date/Time of Note Date/Time of Note DATE: 05/11/18 TIME: 13:05 Assessment/Plan VTE Prophylaxis Risk score (from Nsg)>0 risk: 5 SCD applied (from Nsg): Yes Pharmacological prophylaxis: LMWH Lines/Catheters IV Catheter Type (from Nrsg): Saline Lock Urinary Cath still in place: Yes Reason Cath still needed: skin wounds contaminated by urine Assessment/Plan Hospital Course -VRE urinary tract infection, patient is currently on Zyvox. -Possible aspiration pneumonia, continue antibiotics per ID. -Anemia secondary to GI bleed. Dr. Gomes is following in GI consultation. Transfuse as needed, monitor hemoglobin and hematocrit. -Bleeding gastric ulcers, s/p hemostasis with placement of hemoclip during EGD by Dr Guallpa on 04/03/18. Continue Protonix. -S/p septic shock secondary to urinary tract infection, continue antibiotics per ID. Dr. Guzman is following in infection disease consultation. -Hypoxemic respiratory failure, resolving. Dr. Nam is following in pulmonology consultation. -Acute kidney injury, resolved. Dr. Senior following in nephrology consultation. -Hypernatremia, resolved. 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 -Protein calorie malnutrition -S/P EGD 05/06 in which PEG was not able to be placed, plan for radiological surgical placement of G-tube -No family, patient is appropriate for PEG placement and DNR status as per decision of the bioethics committee -Urinary retention, continue Honeycutt catheter Result Diagram: 05/09/18 0458 05/11/18 0454 Results 24hrs Laboratory Tests Test 05/11/18 04:54 Sodium Level 145 H Potassium Level 4.2 Chloride Level 110 Carbon Dioxide Level 32 H Anion Gap 3 L Blood Urea Nitrogen 33 H Creatinine 0.97 Est Glomerular Filtrat Rate mL/min Glucose Level 137 Calcium Level 8.7 Subjective 24 Hr Interval Summary Free Text/Dictation Patient has no complaints Exam/Review of Systems Exam Vitals Vital Signs Date Temp Pulse Resp B/P (MAP) Pulse Ox O2 O2 Flow FiO2 Time Delivery Rate 05/11/18 97.7 86 18 121/56 96 Room Air 07:24 (77) 05/08/18 8.0 13:00 Intake and Output 05/10/18 05/10/18 05/11/18 1515:00 23:00 07:00 IntakeIntake Total 600 ml 1440 ml 680 ml OutputOutput Total 400 ml 500 ml BalanceBalance 200 ml 940 ml 680 ml Constitutional: well developed Head: normocephalic, atraumatic Neck: supple Respiratory: diminished breath sounds Cardiovascular: regular rate and rhythm Gastrointestinal: soft, non-tender Extremities: normal pulses Results Results 24hrs Laboratory Tests Test 05/11/18 04:54 Sodium Level 145 H Potassium Level 4.2 Chloride Level 110 Carbon Dioxide Level 32 H Anion Gap 3 L Blood Urea Nitrogen 33 H Creatinine 0.97 Est Glomerular Filtrat Rate mL/min Glucose Level 137 Calcium Level 8.7 Medications Medication Current Medications Ascorbic Acid (Vitamin C) 500 mg DAILY NGT Last administered on 05/11/18 08:04; Admin Dose 500 MG; Start 04/09/18 at 14:00 Zinc Sulfate (Zinc Sulfate) 220 mg DAILY NGT Last administered on 05/11/18 08:04; Admin Dose 220 MG; Start 04/10/18 at 09:00 Lansoprazole (Prevacid) 30 mg BID@0600,1800 PO Last administered on 05/11/18 06:18; Admin Dose 30 MG; Start 04/14/18 at 18:00 Multivitamins (Multivitamin) 30 ml DAILY NGT Last administered on 05/11/18 08:04; Admin Dose 30 ML; Start 04/16/18 at 16:30 Morphine Sulfate (morphine) 6 mg Q4H PRN NGT SEVERE PAIN LEVEL 7-10; Start 04/30/18 at 21:30 Collagenase (Santyl) 1 applic DAILY TOP Last administered on 05/11/18 08:04; Admin Dose 1 APPLIC; Start 05/02/18 at 16:00 Tamsulosin HCl (Flomax) 0.4 mg HS PO Last administered on 05/10/18 20:33; Admin Dose 0.4 MG; Start 05/06/18 at 21:00 Linezolid (Zyvox) 600 mg BID PO Last administered on 05/11/18 08:04; Admin Dose 600 MG; Start 05/06/18 at 21:00 DEENA BASILIO May 11, 2018 13:06
--- NOTE | 2018-05-11 13:49 | CONS ---
Assessment/Plan Assessment/Plan Assessment/Plan (Daily) 1. Acute kidney injury on CKD due to ATN + prerenal azotemia 2. acute blood loss anemia- 3. acute hyperkalemia- now resolved 4. acute hypoxemic respiratory failure 5. Sepsis due to acute UTI 6. Severe metabolic acidosis due to FLORES 7. Hypernatremia - resolved 8. Upper GI bleeding 9. H/o BPH on Flomax Plan: BUN/Cr 33/1.13, Na trended upto 150 -I will give free water 100ml PO Q 4 hr x 48 hr through G tube WBC improved to 9.8 Renal US showed No evidence of hydronephrosis or mass, Nonobstructing intrarenal calculi are seen in the mid right kidney measuring 4 mm in 7 mm. 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.8 x 6.7 x 8.3 cm pt is on Zyvox 600mg PO BID , watch for metabolic acidosis will follow up Patient seen in collaboration with Dr Yue Senior Consultation Date/Type/Reason Admit Date/Time Mar 27, 2018 at 20:08 Initial Consult Date 04/02/18 Type of Consult nephrology Requesting Provider: DEENA BASILIO Date/Time of Note DATE: 05/11/18 TIME: 13:49 24 HR Interval Summary Free Text/Dictation Late entry 05/10/2018 Constitutional: requiring O2 Exam/Review of Systems Exam Vitals Vital Signs Date Temp Pulse Resp B/P (MAP) Pulse Ox O2 O2 Flow FiO2 Time Delivery Rate 05/11/18 97.7 86 18 121/56 96 Room Air 07:24 (77) 05/08/18 8.0 13:00 Intake and Output 05/10/18 05/10/18 05/11/18 1515:00 23:00 07:00 IntakeIntake Total 600 ml 1440 ml 680 ml OutputOutput Total 400 ml 500 ml BalanceBalance 200 ml 940 ml 680 ml Constitutional: well developed Psych: nl mood/affect Eyes: nl lids, nl sclera ENMT: nl external ears & nose Neck: non-tender Respiratory: diminished breath sounds Cardiovascular: nl pulses, other (s1s2) Gastrointestinal: soft Musculoskeletal: muscle weakness Extremities: normal pulses Neurological: confused Skin: nl turgor Results Result Diagram: 05/09/18 0458 05/11/18 0454 Results 24hrs Laboratory Tests Test 05/11/18 04:54 Sodium Level 145 H Potassium Level 4.2 Chloride Level 110 Carbon Dioxide Level 32 H Anion Gap 3 L Blood Urea Nitrogen 33 H Creatinine 0.97 Est Glomerular Filtrat Rate mL/min Glucose Level 137 Calcium Level 8.7 Medications Medication Current Medications Ascorbic Acid (Vitamin C) 500 mg DAILY NGT Last administered on 05/11/18 08:04; Admin Dose 500 MG; Start 04/09/18 at 14:00 Zinc Sulfate (Zinc Sulfate) 220 mg DAILY NGT Last administered on 05/11/18 08:04; Admin Dose 220 MG; Start 04/10/18 at 09:00 Lansoprazole (Prevacid) 30 mg BID@0600,1800 PO Last administered on 05/11/18 06:18; Admin Dose 30 MG; Start 04/14/18 at 18:00 Multivitamins (Multivitamin) 30 ml DAILY NGT Last administered on 05/11/18 08:04; Admin Dose 30 ML; Start 04/16/18 at 16:30 Morphine Sulfate (morphine) 6 mg Q4H PRN NGT SEVERE PAIN LEVEL 7-10; Start 04/30/18 at 21:30 Collagenase (Santyl) 1 applic DAILY TOP Last administered on 05/11/18 08:04; Admin Dose 1 APPLIC; Start 05/02/18 at 16:00 Tamsulosin HCl (Flomax) 0.4 mg HS PO Last administered on 05/10/18 20:33; Admin Dose 0.4 MG; Start 05/06/18 at 21:00 Linezolid (Zyvox) 600 mg BID PO Last administered on 05/11/18 08:04; Admin Dose 600 MG; Start 05/06/18 at 21:00 MICHAEL ARZATE May 11, 2018 13:49
[2018-05-11 14:07] VITALS: BP 127/59; PULSE 92; RESP 20
--- NOTE | 2018-05-11 14:38 | CONS ---
Consultation Date/Type/Reason Admit Date/Time Mar 27, 2018 at 20:08 Initial Consult Date SUBJECTIVE: Pt is awake, with NG tube intact. No fevers. no acute events over night VS: stable. T: 97.8 LABS: reviewed. Antibacterials: Zyvox. s/p Fosfomycin MICROBIOLOGY: repeat UA culture URINE CULTURE Final NO GROWTH AFTER 48 HOURS Indwelling: NG tube Honeycutt Physical examination: GEN: Well-developed chronically ill-appearing wasted elderly man who is in no distress. HENT: Head atraumatic normocephalic sclera nonicteric. Neck is supple PULM: chest rise symmetrical, breath sounds diminished bases. Heart: S1-S2 ABDOEN: distended tender on palpation EXTREM: without cyanosis Assessment: 1. Recurrent UTI 2. Status post GI bleeding===> underwent EGD with Hemoclip placement 3. Urinary retention==> on Flomax 4. History MRSA nares colonization 5. Dysphagia 6. Dementia Plan: Patient is stable. Continue current antbx. Repeat UA culture is negative. Requesting Provider: DEENA BASILIO Date/Time of Note DATE: 05/11/18 TIME: 14:36 Exam/Review of Systems Exam Vitals Vital Signs Date Temp Pulse Resp B/P (MAP) Pulse Ox O2 O2 Flow FiO2 Time Delivery Rate 05/11/18 97.8 92 20 127/59 98 Room Air 14:07 (81) 05/08/18 8.0 13:00 Intake and Output 05/10/18 05/10/18 05/11/18 1515:00 23:00 07:00 IntakeIntake Total 600 ml 1440 ml 680 ml OutputOutput Total 400 ml 500 ml BalanceBalance 200 ml 940 ml 680 ml Results Result Diagram: 05/09/18 0458 05/11/18 0454 Results 24hrs Laboratory Tests Test 05/11/18 04:54 Sodium Level 145 H Potassium Level 4.2 Chloride Level 110 Carbon Dioxide Level 32 H Anion Gap 3 L Blood Urea Nitrogen 33 H Creatinine 0.97 Est Glomerular Filtrat Rate mL/min Glucose Level 137 Calcium Level 8.7 Medications Medication Current Medications Ascorbic Acid (Vitamin C) 500 mg DAILY NGT Last administered on 05/11/18at 08:04; Admin Dose 500 MG; Start 04/09/18 at 14:00 Zinc Sulfate (Zinc Sulfate) 220 mg DAILY NGT Last administered on 05/11/18 08:04; Admin Dose 220 MG; Start 04/10/18 at 09:00 Lansoprazole (Prevacid) 30 mg BID@0600,1800 PO Last administered on 05/11/18 06:18; Admin Dose 30 MG; Start 04/14/18 at 18:00 Multivitamins (Multivitamin) 30 ml DAILY NGT Last administered on 05/11/18 08:04; Admin Dose 30 ML; Start 04/16/18 at 16:30 Morphine Sulfate (morphine) 6 mg Q4H PRN NGT SEVERE PAIN LEVEL 7-10; Start 04/30/18 at 21:30 Collagenase (Santyl) 1 applic DAILY TOP Last administered on 05/11/18 08:04; Admin Dose 1 APPLIC; Start 05/02/18 at 16:00 Tamsulosin HCl (Flomax) 0.4 mg HS PO Last administered on 05/10/18 20:33; Admin Dose 0.4 MG; Start 05/06/18 at 21:00 Linezolid (Zyvox) 600 mg BID PO Last administered on 05/11/18 08:04; Admin Dose 600 MG; Start 05/06/18 at 21:00 MARITZA HELLER May 11, 2018 14:38
--- NOTE | 2018-05-11 17:00 | CONS ---
Assessment/Plan Assessment/Plan Assessment/Plan (Daily) Assessment/Plan Assessment/Plan (Daily) 1. Upper GI bleed manifested through coffee ground emesis and melena -s/p EGD -resolved 2. Gastric ulcers, etiology of bleed -resolved 3. Hiatal hernia 4. Anemia secondary to gastric ulcer bleeding -stable but slowly trending down, no active GI bleeding noted, FOB neg 04/16 -monitor closely -stable 5. UTI -VRE in urine cx 05/05 6. Dysphagia status post radiological G-tube placement 7. Malnutrition. 8. Liver cirrhosis, with positive smooth muscle titer and smooth muscle ab interp POS 9. S/P EGD 05/06 in which PEG was not able to be placed secondary to hiatal hernia 10. Mild gastritis 11. Hiatal hernia Gastric ulcer biopsy: -- Body mucosa showing focal dilation of gastric glands and a few scattered plasma cells in the superficial lamina propria. -- The features are suggestive of an early fundic gland polyp. -- No erosion or ulceration is identified. -- No Helicobacter organisms are seen in a Giemsa stain (positive control concurrently reviewed). -- There is no evidence of malignancy. Plan: Continue with tube feeds, increase by 10cc q 4 hours to goal of 60cc Okay to restart pureed diet Aspiration precautions Monitor HH Continue abx Dietary consult for feeding Consultation Date/Type/Reason Admit Date/Time Mar 27, 2018 at 20:08 Initial Consult Date 04/02/18 Requesting Provider: DEENA BASILIO Date/Time of Note DATE: 05/11/18 TIME: 16:59 24 HR Interval Summary Constitutional: no complaints, improved Exam/Review of Systems Exam Vitals Vital Signs Date Temp Pulse Resp B/P (MAP) Pulse Ox O2 O2 Flow FiO2 Time Delivery Rate 05/11/18 97.8 92 20 127/59 98 Room Air 14:07 (81) 05/08/18 8.0 13:00 Intake and Output 05/10/18 05/10/18 05/11/18 1414:59 22:59 06:59 IntakeIntake Total 600 ml 1440 ml 680 ml OutputOutput Total 400 ml 500 ml BalanceBalance 200 ml 940 ml 680 ml Constitutional: alert, oriented, well developed Psych: no complaints, nl mood/affect Head: normocephalic, atraumatic Eyes: nl conjunctiva, EOMI, nl lids, nl sclera, PERRL ENMT: nl external ears & nose, nl lips & teeth, nl nasal mucosa & septum Neck: supple, non-tender Respiratory: clear to auscultation, normal air movement Cardiovascular: regular rate and rhythm, nl pulses Gastrointestinal: soft, nl liver, spleen, non-tender Musculoskeletal: nl extremities to inspection, nl gait and stance Extremities: normal pulses Neurological: [employer] II-XII intact, nl mental status, nl speech, nl strength Skin: nl turgor; No rash or lesions Lymph: nl lymph nodes Results Result Diagram: 05/09/1845705/11/18453 Results 24hrs Laboratory Tests Test 05/11/18 04:54 Sodium Level 145 H Potassium Level 4.2 Chloride Level 110 Carbon Dioxide Level 32 H Anion Gap 3 L Blood Urea Nitrogen 33 H Creatinine 0.97 Est Glomerular Filtrat Rate mL/min Glucose Level 137 Calcium Level 8.7 Medications Medication Current Medications Ascorbic Acid (Vitamin C) 500 mg DAILY NGT Last administered on 05/11/18 08:04; Admin Dose 500 MG; Start 04/09/18 at 14:00 Zinc Sulfate (Zinc Sulfate) 220 mg DAILY NGT Last administered on 05/11/18 08:04; Admin Dose 220 MG; Start 04/10/18 at 09:00 Lansoprazole (Prevacid) 30 mg BID@0600,1800 PO Last administered on 05/11/18 06:18; Admin Dose 30 MG; Start 04/14/18 at 18:00 Multivitamins (Multivitamin) 30 ml DAILY NGT Last administered on 05/11/18 08:04; Admin Dose 30 ML; Start 04/16/18 at 16:30 Morphine Sulfate (morphine) 6 mg Q4H PRN NGT SEVERE PAIN LEVEL 7-10; Start 04/30/18 at 21:30 Collagenase (Santyl) 1 applic DAILY TOP Last administered on 05/11/18 08:04; Admin Dose 1 APPLIC; Start 05/02/18 at 16:00 Tamsulosin HCl (Flomax) 0.4 mg HS PO Last administered on 05/10/18at 20:33; Admin Dose 0.4 MG; Start 05/06/18 at 21:00 Linezolid (Zyvox) 600 mg BID PO Last administered on 2/10/19at 08:04; Admin Dose 600 MG; Start 05/06/18 at 21:00 ATTILA UMANZOR MD May 11, 2018 17:00
[2018-05-11] MEDS: TAMSULOSIN (SR) 0.4 MG CAP PO SCH (20:08)
[2018-05-11 21:19] VITALS: BP 101/56; PULSE 65; RESP 18
--- NOTE | 2018-05-12 01:25 | CONS ---
Assessment/Plan Assessment/Plan Assessment/Plan (Daily) 1. Acute kidney injury on CKD due to ATN + prerenal azotemia 2. acute blood loss anemia- 3. acute hyperkalemia- now resolved 4. acute hypoxemic respiratory failure 5. Sepsis due to acute UTI 6. Severe metabolic acidosis due to FLORES 7. Hypernatremia - resolved 8. Upper GI bleeding 9. H/o BPH on Flomax Plan: BUN/Cr 33/1.13, Na trended upto 150 -I will give free water 100ml PO Q 4 hr x 48 hr through G tube WBC improved to 9.8 Renal US showed No evidence of hydronephrosis or mass, Nonobstructing intrarenal calculi are seen in the mid right kidney measuring 4 mm in 7 mm. 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.8 x 6.7 x 8.3 cm pt is on Zyvox 600mg PO BID , watch for metabolic acidosis will follow up Patint seen in collaboration with Dr Yue Senior Consultation Date/Type/Reason Admit Date/Time Mar 27, 2018 at 8:08 pm Initial Consult Date 04/02/18 Type of Consult nephrology Requesting Provider: DEENA BASILIO Date/Time of Note DATE: 05/12/18 TIME: 01:25 24 HR Interval Summary Free Text/Dictation Late entry - 05/11/18 Constitutional: requiring O2 Exam/Review of Systems Exam Vitals Vital Signs Date Temp Pulse Resp B/P (MAP) Pulse Ox O2 O2 Flow FiO2 Time Delivery Rate 05/11/18 97.8 65 18 101/56 94 21:19 (71) 05/11/18 Room Air 14:07 05/08/18 8.0 13:00 Intake and Output 05/11/18 05/11/18 05/12/18 1515:00 23:00 07:00 IntakeIntake Total 360 ml 1170 ml OutputOutput Total 650 ml BalanceBalance 360 ml 520 ml Psych: nl mood/affect Head: normocephalic Eyes: EOMI ENMT: nl external ears & nose Neck: supple Gastrointestinal: soft Musculoskeletal: muscle weakness Extremities: normal pulses Neurological: confused Results Result Diagram: 05/09/18 0458 05/11/18 0454 Results 24hrs Laboratory Tests Test 05/11/18 04:54 Sodium Level 145 H Potassium Level 4.2 Chloride Level 110 Carbon Dioxide Level 32 H Anion Gap 3 L Blood Urea Nitrogen 33 H Creatinine 0.97 Est Glomerular Filtrat Rate mL/min Glucose Level 137 Calcium Level 8.7 Medications Medication Current Medications Ascorbic Acid (Vitamin C) 500 mg DAILY NGT Last administered on 05/11/18 08:04; Admin Dose 500 MG; Start 04/09/18 at 14:00 Zinc Sulfate (Zinc Sulfate) 220 mg DAILY NGT Last administered on 05/11/18 08:04; Admin Dose 220 MG; Start 04/10/18 at 09:00 Lansoprazole (Prevacid) 30 mg BID@0600,1800 PO Last administered on 05/11/18 18:33; Admin Dose 30 MG; Start 04/14/18 at 18:00 Multivitamins (Multivitamin) 30 ml DAILY NGT Last administered on 05/11/18 08:04; Admin Dose 30 ML; Start 04/16/18 at 16:30 Morphine Sulfate (morphine) 6 mg Q4H PRN NGT SEVERE PAIN LEVEL 7-10; Start 04/30/18 at 21:30 Collagenase (Santyl) 1 applic DAILY TOP Last administered on 05/11/18 08:04; Admin Dose 1 APPLIC; Start 05/02/18 at 16:00 Tamsulosin HCl (Flomax) 0.4 mg HS PO Last administered on 05/11/18 20:08; Admin Dose 0.4 MG; Start 05/06/18 at 21:00 Linezolid (Zyvox) 600 mg BID PO Last administered on 05/11/18 20:08; Admin Dose 600 MG; Start 05/06/18 at 21:00 MICHAEL ARZATE May 12, 2018 01:25
[2018-05-12 02:07] VITALS: BP 115/56; PULSE 78; RESP 18
[2018-05-12] MEDS: LANSOPRAZOLE 30 MG CAP PO SCH ×2 (06:44→18:10)
[2018-05-12 07:53] VITALS: BP 118/61; PULSE 86; RESP 20
[2018-05-12] MEDS: ZINC SULFATE 220 MG CAP NGT SCH (08:41)
[2018-05-12] MEDS: MULTIVITAMINS 30 ML CUP NGT SCH (08:41)
[2018-05-12] MEDS: ZYVOX 600 MG TAB PO SCH (08:41)
[2018-05-12] MEDS: ASCORBIC ACID 500 MG TAB NGT SCH (08:41)
--- NOTE | 2018-05-12 09:07 | CONS ---
Assessment/Plan Assessment/Plan Hospital Course (Demo Recall) 88 yo male presented with urosepsis and respiratory failure and coffee ground emesis 1. Upper GI bleed manifested through coffee ground emesis and melena -s/p EGD -resolved 2. Gastric ulcers, etiology of bleed -resolved 3. Hiatal hernia 4. Anemia secondary to gastric ulcer bleeding -stable but slowly trending down, no active GI bleeding noted, FOB neg 04/16 -monitor closely -stable 5. UTI -VRE in urine cx 05/05 6. Dysphagia 7. Malnutrition. 8. Liver cirrhosis, with positive smooth muscle titer and smooth muscle ab interp POS 9. S/P EGD 05/06 in which PEG was not able to be placed 10. Mild gastritis 11. Hiatal hernia Gastric ulcer biopsy: -- Body mucosa showing focal dilation of gastric glands and a few scattered plasma cells in the superficial lamina propria. -- The features are suggestive of an early fundic gland polyp. -- No erosion or ulceration is identified. -- No Helicobacter organisms are seen in a Giemsa stain (positive control concurrently reviewed). -- There is no evidence of malignancy. Plan: Continue with tube feeds, monitor residuals Dietary consult Aspiration precautions Monitor HH Continue abx Pt examined and plan of care discussed with Dr. Gomes Consultation Date/Type/Reason Admit Date/Time Mar 27, 2018 at 20:08 Initial Consult Date 04/02/18 Requesting Provider: DEENA BASILIO Date/Time of Note DATE: 05/12/18 TIME: 09:05 24 HR Interval Summary Free Text/Dictation tolerating tube feeds. No complaints. WBC have gone up to 12. No evidence of GI bleeding Exam/Review of Systems Exam Vitals Vital Signs Date Temp Pulse Resp B/P (MAP) Pulse Ox O2 O2 Flow FiO2 Time Delivery Rate 05/12/18 97.7 86 20 118/61 97 07:53 (80) 05/11/18 Room Air 14:07 05/08/18 8.0 13:00 Intake and Output 05/11/18 05/11/18 05/12/18 1515:00 23:00 07:00 IntakeIntake Total 360 ml 1170 ml 1070 ml OutputOutput Total 650 ml BalanceBalance 360 ml 520 ml 1070 ml Constitutional: alert, oriented Psych: no complaints Head: normocephalic Eyes: PERRL Gastrointestinal: soft, non-tender Neurological: confused Results Result Diagram: 05/12/187 05/12/18 0437 Results 24hrs Laboratory Tests Test 05/12/18 04:37 White Blood Count 12.7 #H Red Blood Count 2.91 L Hemoglobin 8.3 L Hematocrit 27.3 L Mean Corpuscular Volume 93.8 Mean Corpuscular Hemoglobin 28.5 L Mean Corpuscular Hemoglobin Concent 30.4 L Red Cell Distribution Width 15.8 H Platelet Count 316 Mean Platelet Volume 11.8 H Immature Granulocytes % 1.500 H Neutrophils % 69.0 Lymphocytes % 16.8 Monocytes % 6.5 Eosinophils % 5.7 Basophils % 0.5 Nucleated Red Blood Cells % 0.0 Immature Granulocytes # 0.190 H Neutrophils # 8.8 H Lymphocytes # 2.1 Monocytes # 0.8 Eosinophils # 0.7 H Basophils # 0.1 Nucleated Red Blood Cells # 0.0 Sodium Level 142 Potassium Level 3.9 Chloride Level 108 Carbon Dioxide Level 30 Anion Gap 4 L Blood Urea Nitrogen 29 H Creatinine 0.92 Est Glomerular Filtrat Rate mL/min Glucose Level 146 Calcium Level 8.6 Medications Medication Current Medications Ascorbic Acid (Vitamin C) 500 mg DAILY NGT Last administered on 05/12/18 08:41; Admin Dose 500 MG; Start 04/09/18 at 14:00 Zinc Sulfate (Zinc Sulfate) 220 mg DAILY NGT Last administered on 05/12/18at 08:41; Admin Dose 220 MG; Start 04/10/18 at 09:00 Lansoprazole (Prevacid) 30 mg BID@0600,1800 PO Last administered on 05/12/18at 06:44; Admin Dose 30 MG; Start 04/14/18 at 18:00 Multivitamins (Multivitamin) 30 ml DAILY NGT Last administered on 05/12/18 08:41; Admin Dose 30 ML; Start 04/16/18 at 16:30 Morphine Sulfate (morphine) 6 mg Q4H PRN NGT SEVERE PAIN LEVEL 7-10; Start 04/30/18 at 21:30 Collagenase (Santyl) 1 applic DAILY TOP Last administered on 05/11/18at 08:04; Admin Dose 1 APPLIC; Start 05/02/18 at 16:00 Tamsulosin HCl (Flomax) 0.4 mg HS PO Last administered on 05/11/18at 20:08; Admin Dose 0.4 MG; Start 05/06/18 at 21:00 Linezolid (Zyvox) 600 mg BID PO Last administered on 05/12/18at 08:41; Admin Dose 600 MG; Start 05/06/18 at 21:00 SOREN DOVE May 12, 2018 09:07
--- NOTE | 2018-05-12 11:18 | CONS ---
Assessment/Plan Assessment/Plan Assessment/Plan (Daily) 1. Acute kidney injury on CKD due to ATN + prerenal azotemia 2. acute blood loss anemia- 3. acute hyperkalemia- now resolved 4. acute hypoxemic respiratory failure 5. Sepsis due to acute UTI 6. Severe metabolic acidosis due to FLORES 7. Hypernatremia - resolved 8. Upper GI bleeding 9. H/o BPH on Flomax Plan: BUN/Cr 29/0.92, Na improved to normal 142 WBC still high, monitor electrolytes and replace as needed Renal US showed No evidence of hydronephrosis or mass, Nonobstructing intrarenal calculi are seen in the mid right kidney measuring 4 mm in 7 mm. 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.8 x 6.7 x 8.3 cm pt is on Zyvox 600mg PO BID , watch for metabolic acidosis Flomax 0,4 mg PO BID will follow up Consultation Date/Type/Reason Admit Date/Time Mar 27, 2018 at 20:08 Initial Consult Date 03/31/18 Type of Consult NEPHROLOGY Requesting Provider: DEENA BASILIO Date/Time of Note DATE: 05/12/18 TIME: 11:17 Exam/Review of Systems Exam Vitals Vital Signs Date Temp Pulse Resp B/P (MAP) Pulse Ox O2 O2 Flow FiO2 Time Delivery Rate 05/12/18 97.7 86 20 118/61 97 07:53 (80) 05/11/18 Room Air 14:07 05/08/18 8.0 13:00 Intake and Output 05/11/18 05/11/18 05/12/18 1515:00 23:00 07:00 IntakeIntake Total 360 ml 1170 ml 1070 ml OutputOutput Total 650 ml BalanceBalance 360 ml 520 ml 1070 ml Exam Constitutional: alert Neck: supple, non-tender Respiratory: clear to auscultation, normal air movement, diminished breath sounds Cardiovascular: regular rate and rhythm, nl pulses Gastrointestinal: soft, non-tender Musculoskeletal: nl extremities to inspection + magaña catheter Results Result Diagram: 05/12/18 0437 05/12/18436 Results 24hrs Laboratory Tests Test 05/12/18 04:37 White Blood Count 12.7 #H Red Blood Count 2.91 L Hemoglobin 8.3 L Hematocrit 27.3 L Mean Corpuscular Volume 93.8 Mean Corpuscular Hemoglobin 28.5 L Mean Corpuscular Hemoglobin Concent 30.4 L Red Cell Distribution Width 15.8 H Platelet Count 316 Mean Platelet Volume 11.8 H Immature Granulocytes % 1.500 H Neutrophils % 69.0 Lymphocytes % 16.8 Monocytes % 6.5 Eosinophils % 5.7 Basophils % 0.5 Nucleated Red Blood Cells % 0.0 Immature Granulocytes # 0.190 H Neutrophils # 8.8 H Lymphocytes # 2.1 Monocytes # 0.8 Eosinophils # 0.7 H Basophils # 0.1 Nucleated Red Blood Cells # 0.0 Sodium Level 142 Potassium Level 3.9 Chloride Level 108 Carbon Dioxide Level 30 Anion Gap 4 L Blood Urea Nitrogen 29 H Creatinine 0.92 Est Glomerular Filtrat Rate mL/min Glucose Level 146 Calcium Level 8.6 Medications Medication Current Medications Ascorbic Acid (Vitamin C) 500 mg DAILY NGT Last administered on 05/12/18 08:41; Admin Dose 500 MG; Start 04/09/18 at 14:00 Zinc Sulfate (Zinc Sulfate) 220 mg DAILY NGT Last administered on 05/12/18 08:41; Admin Dose 220 MG; Start 04/10/18 at 09:00 Lansoprazole (Prevacid) 30 mg BID@0600,1800 PO Last administered on 05/12/18 06:44; Admin Dose 30 MG; Start 04/14/18 at 18:00 Multivitamins (Multivitamin) 30 ml DAILY NGT Last administered on 05/12/18 08:41; Admin Dose 30 ML; Start 04/16/18 at 16:30 Morphine Sulfate (morphine) 6 mg Q4H PRN NGT SEVERE PAIN LEVEL 7-10; Start 04/30/18 at 21:30 Collagenase (Santyl) 1 applic DAILY TOP Last administered on 05/11/18 08:04; Admin Dose 1 APPLIC; Start 05/02/18 at 16:00 Tamsulosin HCl (Flomax) 0.4 mg HS PO Last administered on 05/11/18 20:08; Admin Dose 0.4 MG; Start 05/06/18 at 21:00 Linezolid (Zyvox) 600 mg BID PO Last administered on 05/12/18 08:41; Admin Dose 600 MG; Start 05/06/18 at 21:00 STEVEN BLANCO MD May 12, 2018 11:18
--- NOTE | 2018-05-12 11:52 | CONS ---
Assessment/Plan Assessment/Plan Hospital Course (Demo Recall) Awake, looks comfortable, tolerates tube feeding Microbiology: Urine culture grew VRE Antimicrobials: Zyvox s/p Fosfomycin Indwelling: NG tube Honeycutt Physical examination: Well-developed chronically ill-appearing wasted elderly man who is in no distress. Head atraumatic normocephalic sclera nonicteric. Neck is supple chest rise symmetrical breath sounds diminished bases. Heart: S1-S2 abdomen distended tender on palpation extremities without cyanosis Assessment: 1. Recurrent UTI 2. Status post GI bleeding===> underwent EGD with Hemoclip placement 3. Urinary retention==> on Flomax 4. History MRSA nares colonization 5. Dysphagia 6. Dementia Plan: Stable, repeat urine culture negative, DC antibiotics, DC Honeycutt, bladder scan with straight caths as needed, continue Flomax. DC isolation Consultation Date/Type/Reason Admit Date/Time Mar 27, 2018 at 20:08 Initial Consult Date 04/02/18 Type of Consult ID Requesting Provider: DEENA BASILIO Date/Time of Note DATE: 05/12/18 TIME: 11:51 Exam/Review of Systems Exam Vitals Vital Signs Date Temp Pulse Resp B/P (MAP) Pulse Ox O2 O2 Flow FiO2 Time Delivery Rate 05/12/18 97.7 86 20 118/61 97 07:53 (80) 05/11/18 Room Air 14:07 05/08/18 8.0 13:00 Intake and Output 05/11/18 05/11/18 05/12/18 1515:00 23:00 07:00 IntakeIntake Total 360 ml 1170 ml 1070 ml OutputOutput Total 650 ml BalanceBalance 360 ml 520 ml 1070 ml Results Result Diagram: 05/12/18 0437 05/12/18 0437 Results 24hrs Laboratory Tests Test 05/12/18 04:37 White Blood Count 12.7 #H Red Blood Count 2.91 L Hemoglobin 8.3 L Hematocrit 27.3 L Mean Corpuscular Volume 93.8 Mean Corpuscular Hemoglobin 28.5 L Mean Corpuscular Hemoglobin Concent 30.4 L Red Cell Distribution Width 15.8 H Platelet Count 316 Mean Platelet Volume 11.8 H Immature Granulocytes % 1.500 H Neutrophils % 69.0 Lymphocytes % 16.8 Monocytes % 6.5 Eosinophils % 5.7 Basophils % 0.5 Nucleated Red Blood Cells % 0.0 Immature Granulocytes # 0.190 H Neutrophils # 8.8 H Lymphocytes # 2.1 Monocytes # 0.8 Eosinophils # 0.7 H Basophils # 0.1 Nucleated Red Blood Cells # 0.0 Sodium Level 142 Potassium Level 3.9 Chloride Level 108 Carbon Dioxide Level 30 Anion Gap 4 L Blood Urea Nitrogen 29 H Creatinine 0.92 Est Glomerular Filtrat Rate mL/min Glucose Level 146 Calcium Level 8.6 Medications Medication Current Medications Ascorbic Acid (Vitamin C) 500 mg DAILY NGT Last administered on 05/12/18 08:41; Admin Dose 500 MG; Start 04/09/18 at 14:00 Zinc Sulfate (Zinc Sulfate) 220 mg DAILY NGT Last administered on 05/12/18 08:41; Admin Dose 220 MG; Start 04/10/18 at 09:00 Lansoprazole (Prevacid) 30 mg BID@0600,1800 PO Last administered on 05/12/18 06:44; Admin Dose 30 MG; Start 04/14/18 at 18:00 Multivitamins (Multivitamin) 30 ml DAILY NGT Last administered on 05/12/18 08:41; Admin Dose 30 ML; Start 04/16/18 at 16:30 Morphine Sulfate (morphine) 6 mg Q4H PRN NGT SEVERE PAIN LEVEL 7-10; Start 04/30/18 at 21:30 Collagenase (Santyl) 1 applic DAILY TOP Last administered on 05/11/18 08:04; Admin Dose 1 APPLIC; Start 05/02/18 at 16:00 Tamsulosin HCl (Flomax) 0.4 mg HS PO Last administered on 05/11/18 20:08; Admin Dose 0.4 MG; Start 05/06/18 at 21:00 Linezolid (Zyvox) 600 mg BID PO Last administered on 05/12/18 08:41; Admin Dose 600 MG; Start 05/06/18 at 21:00 DAVONTE MCMAHAN NP May 12, 2018 11:52
[2018-05-12 14:22] VITALS: BP 136/82; PULSE 91; RESP 20
--- NOTE | 2018-05-12 15:54 | PN ---
Date/Time of Note Date/Time of Note DATE: 05/12/18 TIME: 15:52 Assessment/Plan VTE Prophylaxis Risk score (from Ns)>0 risk: 4 SCD applied (from Ns): Yes Pharmacological prophylaxis: NA/contraindicated Pharm contraindication: bleeding Lines/Catheters [facility] Saline Lock Central line still needed: Yes Urinary Cath still in place: Yes Reason Cath still needed: urinary retention Assessment/Plan Hospital Course Patient completed antibiotics, will Honeycutt discontinued continue to monitor postvoid residual, patient tolerates G-tube feeding well, DC planning Assessment/Plan -Hyperkalemia, resolved -VRE urinary tract infection, completed treatment with Zyvox. -Possible aspiration pneumonia, continue antibiotics per ID. -Anemia secondary to GI bleed. Dr. Gomes is following in GI consultation. Transfuse as needed, monitor hemoglobin and hematocrit. -Bleeding gastric ulcers, s/p hemostasis with placement of hemoclip during EGD by Dr Guallpa on 04/03/18. Continue Protonix. -S/p septic shock secondary to urinary tract infection, continue antibiotics per ID. Dr. Guzman is following in infection disease consultation. -Hypoxemic respiratory failure, resolving. Dr. Nam is following in pulmonology consultation. -Acute kidney injury, resolved. Dr. Senior following in nephrology consultation. -Hypernatremia, resolved. 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 -Protein calorie malnutrition -S/P EGD 05/06 in which PEG was not able to be placed, status post G-tube placement by radiology -No family, patient is appropriate for PEG placement and DNR status as per decision of the bioethics committee -Urinary retention, continue Honeycutt catheter Further recommendations based on clinical course. Plan of care discussed with Dr. Kiser. Result Diagram: 05/12/1843605/12/18436 Results 24hrs Laboratory Tests Test 05/12/18 04:37 White Blood Count 12.7 #H Red Blood Count 2.91 L Hemoglobin 8.3 L Hematocrit 27.3 L Mean Corpuscular Volume 93.8 Mean Corpuscular Hemoglobin 28.5 L Mean Corpuscular Hemoglobin Concent 30.4 L Red Cell Distribution Width 15.8 H Platelet Count 316 Mean Platelet Volume 11.8 H Immature Granulocytes % 1.500 H Neutrophils % 69.0 Lymphocytes % 16.8 Monocytes % 6.5 Eosinophils % 5.7 Basophils % 0.5 Nucleated Red Blood Cells % 0.0 Immature Granulocytes # 0.190 H Neutrophils # 8.8 H Lymphocytes # 2.1 Monocytes # 0.8 Eosinophils # 0.7 H Basophils # 0.1 Nucleated Red Blood Cells # 0.0 Sodium Level 142 Potassium Level 3.9 Chloride Level 108 Carbon Dioxide Level 30 Anion Gap 4 L Blood Urea Nitrogen 29 H Creatinine 0.92 Est Glomerular Filtrat Rate mL/min Glucose Level 146 Calcium Level 8.6 Exam/Review of Systems Exam Vitals Vital Signs Date Temp Pulse Resp B/P (MAP) Pulse Ox O2 O2 Flow FiO2 Time Delivery Rate 05/12/18 97.8 91 20 136/82 97 14:22 (100) 05/11/18 Room Air 14:07 05/08/18 8.0 13:00 Intake and Output 05/11/18 05/11/18 05/12/18 1515:00 23:00 07:00 IntakeIntake Total 360 ml 1170 ml 1070 ml OutputOutput Total 650 ml BalanceBalance 360 ml 520 ml 1070 ml Exam Constitutional: alert, oriented, frail ENMT: nl external ears & nose, other (NGT) Respiratory: diminished breath sounds Cardiovascular: nl pulses Gastrointestinal: soft, non-tender. GT Musculoskeletal: muscle weakness Extremities: normal pulses Results Results 24hrs Laboratory Tests Test 05/12/18 04:37 White Blood Count 12.7 #H Red Blood Count 2.91 L Hemoglobin 8.3 L Hematocrit 27.3 L Mean Corpuscular Volume 93.8 Mean Corpuscular Hemoglobin 28.5 L Mean Corpuscular Hemoglobin Concent 30.4 L Red Cell Distribution Width 15.8 H Platelet Count 316 Mean Platelet Volume 11.8 H Immature Granulocytes % 1.500 H Neutrophils % 69.0 Lymphocytes % 16.8 Monocytes % 6.5 Eosinophils % 5.7 Basophils % 0.5 Nucleated Red Blood Cells % 0.0 Immature Granulocytes # 0.190 H Neutrophils # 8.8 H Lymphocytes # 2.1 Monocytes # 0.8 Eosinophils # 0.7 H Basophils # 0.1 Nucleated Red Blood Cells # 0.0 Sodium Level 142 Potassium Level 3.9 Chloride Level 108 Carbon Dioxide Level 30 Anion Gap 4 L Blood Urea Nitrogen 29 H Creatinine 0.92 Est Glomerular Filtrat Rate mL/min Glucose Level 146 Calcium Level 8.6 Medications Medication Current Medications Ascorbic Acid (Vitamin C) 500 mg DAILY NGT Last administered on 05/12/18 08:41; Admin Dose 500 MG; Start 04/09/18 at 14:00 Zinc Sulfate (Zinc Sulfate) 220 mg DAILY NGT Last administered on 05/12/18at 08:41; Admin Dose 220 MG; Start 04/10/18 at 09:00 Lansoprazole (Prevacid) 30 mg BID@0600,1800 PO Last administered on 05/12/18at 06:44; Admin Dose 30 MG; Start 04/14/18 at 18:00 Multivitamins (Multivitamin) 30 ml DAILY NGT Last administered on 05/12/18at 08:41; Admin Dose 30 ML; Start 04/16/18 at 16:30 Morphine Sulfate (morphine) 6 mg Q4H PRN NGT SEVERE PAIN LEVEL 7-10; Start 04/30/18 at 21:30 Collagenase (Santyl) 1 applic DAILY TOP Last administered on 05/11/18at 08:04; Admin Dose 1 APPLIC; Start 05/02/18 at 16:00 Tamsulosin HCl (Flomax) 0.4 mg BID PO ; Start 05/12/18 at 21:00 JUDY CORNEJO May 12, 2018 15:54
[2018-05-12] MEDS: COLLAGENASE 5 GM (UD JAR) TOP SCH (16:00)
[2018-05-12 19:27] VITALS: BP 114/55; PULSE 95; RESP 18
[2018-05-12] MEDS: TAMSULOSIN (SR) 0.4 MG CAP PO SCH (20:44)
[2018-05-13 01:55] VITALS: BP 113/56; PULSE 72; RESP 18
[2018-05-13] MEDS: LANSOPRAZOLE 30 MG CAP PO SCH ×2 (06:19→18:01)
[2018-05-13 07:17] VITALS: BP 126/59; PULSE 70; RESP 16
[2018-05-13] MEDS: ZINC SULFATE 220 MG CAP NGT SCH (08:51)
[2018-05-13] MEDS: COLLAGENASE 5 GM (UD JAR) TOP SCH (08:51)
[2018-05-13] MEDS: ASCORBIC ACID 500 MG TAB NGT SCH (08:51)
[2018-05-13] MEDS: TAMSULOSIN (SR) 0.4 MG CAP PO SCH ×2 (08:51→21:36)
[2018-05-13] MEDS: MULTIVITAMINS 30 ML CUP NGT SCH (08:51)
--- NOTE | 2018-05-13 09:06 | CONS ---
Assessment/Plan Assessment/Plan Hospital Course (Demo Recall) 88 yo male presented with urosepsis and respiratory failure and coffee ground emesis 1. Upper GI bleed manifested through coffee ground emesis and melena -s/p EGD -resolved 2. Gastric ulcers, etiology of bleed -resolved 3. Hiatal hernia 4. Anemia secondary to gastric ulcer bleeding -stable but slowly trending down, no active GI bleeding noted, FOB neg 04/16 -monitor closely -stable 5. UTI -VRE in urine cx 05/05 -resolved 6. Dysphagia -g tube placed 7. Malnutrition. -g tube 8. Liver cirrhosis, with positive smooth muscle titer and smooth muscle ab interp POS 9. S/P EGD 05/06 in which PEG was not able to be placed 10. Mild gastritis 11. Hiatal hernia 12. Urinary retention -flomax, bladder scans and straight caths Gastric ulcer biopsy: -- Body mucosa showing focal dilation of gastric glands and a few scattered plasma cells in the superficial lamina propria. -- The features are suggestive of an early fundic gland polyp. -- No erosion or ulceration is identified. -- No Helicobacter organisms are seen in a Giemsa stain (positive control concurrently reviewed). -- There is no evidence of malignancy. Plan: Continue with tube feeds, monitor residuals Dietary consult Aspiration precautions Monitor HH Continue abx Pt examined and plan of care discussed with Dr. Gomes Consultation Date/Type/Reason Admit Date/Time Mar 27, 2018 at 20:08 Initial Consult Date 04/02/18 Requesting Provider: DEENA BASILIO Date/Time of Note DATE: 05/13/18 TIME: 09:04 24 HR Interval Summary Free Text/Dictation Honeycutt dc overnight. Bladder scans and straight cath. Tolerating tube feeds at 70cc, 45cc residuals. Denies abd pain and N/V. Exam/Review of Systems Exam Vitals Vital Signs Date Temp Pulse Resp B/P (MAP) Pulse Ox O2 O2 Flow FiO2 Time Delivery Rate 05/13/18 98.8 70 16 126/59 96 07:17 (81) 05/11/18 Room Air 14:07 Intake and Output 05/12/18 05/12/18 05/13/18 1515:00 23:00 07:00 IntakeIntake Total 360 ml 280 ml 700 ml OutputOutput Total 950 ml 600 ml BalanceBalance 360 ml -670 ml 100 ml Constitutional: alert Head: normocephalic Eyes: nl sclera, PERRL Cardiovascular: regular rate and rhythm Gastrointestinal: soft, non-tender Neurological: confused Results Result Diagram: 05/12/1843605/12/18436 Results 24hrs Laboratory Tests Test 05/13/18 06:53 Sodium Level Pending Potassium Level Pending Chloride Level Pending Carbon Dioxide Level Pending Anion Gap Pending Blood Urea Nitrogen Pending Creatinine Pending Est Glomerular Filtrat Rate mL/min Glucose Level Pending Calcium Level Pending Medications Medication Current Medications Ascorbic Acid (Vitamin C) 500 mg DAILY NGT Last administered on 05/13/18 08:51 ; Admin Dose 500 MG; Start 04/09/18 at 14:00 Zinc Sulfate (Zinc Sulfate) 220 mg DAILY NGT Last administered on 05/13/18 08:51; Admin Dose 220 MG; Start 04/10/18 at 09:00 Lansoprazole (Prevacid) 30 mg BID@0600,1800 PO Last administered on 05/13/18 06:19; Admin Dose 30 MG; Start 04/14/18 at 18:00 Multivitamins (Multivitamin) 30 ml DAILY NGT Last administered on 05/13/18 08:51; Admin Dose 30 ML; Start 04/16/18 at 16:30 Morphine Sulfate (morphine) 6 mg Q4H PRN NGT SEVERE PAIN LEVEL 7-10; Start 04/30/18 at 21:30 Collagenase (Santyl) 1 applic DAILY TOP Last administered on 05/13/18 08:51; Admin Dose 1 APPLIC; Start 05/02/18 at 16:00 Tamsulosin HCl (Flomax) 0.4 mg BID PO Last administered on 05/13/18 08:51; Admin Dose 0.4 MG; Start 05/12/18 at 21:00 SOREN DOVE May 13, 2018 09:06
--- NOTE | 2018-05-13 09:56 | CONS ---
Assessment/Plan Assessment/Plan Assessment/Plan (Daily) 1. Acute kidney injury on CKD due to ATN + prerenal azotemia 2. acute blood loss anemia- 3. acute hyperkalemia- now resolved 4. acute hypoxemic respiratory failure 5. Sepsis due to acute UTI 6. Severe metabolic acidosis due to FLORES 7. Hypernatremia - resolved 8. Upper GI bleeding 9. H/o BPH on Flomax Plan: BUN/Cr 31/0.89 Na improved to normal 140, WBC still high 12.7 , monitor electrolytes and replace as needed Renal US showed No evidence of hydronephrosis or mass, Nonobstructing intrarenal calculi are seen in the mid right kidney measuring 4 mm in 7 mm. 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.8 x 6.7 x 8.3 cm pt is on Zyvox 600mg PO BID , watch for metabolic acidosis Flomax 0,4 mg PO BID will follow up Consultation Date/Type/Reason Admit Date/Time Mar 27, 2018 at 20:08 Initial Consult Date 03/31/18 Type of Consult NEPHROLOGY Requesting Provider: DEENA BASILIO Date/Time of Note DATE: 05/13/18 TIME: 09:56 24 HR Interval Summary Free Text/Dictation BUN/Cr 3/0.89, Bp stable, afebrile, Exam/Review of Systems Exam Vitals Vital Signs Date Temp Pulse Resp B/P (MAP) Pulse Ox O2 O2 Flow FiO2 Time Delivery Rate 05/13/18 98.8 70 16 126/59 96 07:17 (81) 05/11/18 Room Air 14:07 Intake and Output 05/12/18 05/12/18 05/13/18 1515:00 23:00 07:00 IntakeIntake Total 360 ml 280 ml 700 ml OutputOutput Total 950 ml 600 ml BalanceBalance 360 ml -670 ml 100 ml Exam Constitutional: alert Neck: supple, non-tender Respiratory: clear to auscultation, normal air movement, diminished breath sounds Cardiovascular: regular rate and rhythm, nl pulses Gastrointestinal: soft, non-tender Musculoskeletal: nl extremities to inspection + magaña catheter Results Result Diagram: 05/12/18 0437 05/13/18 0653 Results 24hrs Laboratory Tests Test 05/13/18 06:53 Sodium Level 140 Potassium Level 4.6 Chloride Level 109 Carbon Dioxide Level 30 Anion Gap 1 L Blood Urea Nitrogen 31 H Creatinine 0.89 Est Glomerular Filtrat Rate mL/min Glucose Level 104 # Calcium Level 8.6 Medications Medication Current Medications Ascorbic Acid (Vitamin C) 500 mg DAILY NGT Last administered on 05/13/18 08:51; Admin Dose 500 MG; Start 04/09/18 at 14:00 Zinc Sulfate (Zinc Sulfate) 220 mg DAILY NGT Last administered on 05/13/18 08:51; Admin Dose 220 MG; Start 04/10/18 at 09:00 Lansoprazole (Prevacid) 30 mg BID@0600,1800 PO Last administered on 05/13/18 06:19; Admin Dose 30 MG; Start 04/14/18 at 18:00 Multivitamins (Multivitamin) 30 ml DAILY NGT Last administered on 05/13/18 08:51; Admin Dose 30 ML; Start 04/16/18 at 16:30 Morphine Sulfate (morphine) 6 mg Q4H PRN NGT SEVERE PAIN LEVEL 7-10; Start 04/30/18 at 21:30 Collagenase (Santyl) 1 applic DAILY TOP Last administered on 05/13/18 08:51; Admin Dose 1 APPLIC; Start 05/02/18 at 16:00 Tamsulosin HCl (Flomax) 0.4 mg BID PO Last administered on 05/13/18 08:51; Admin Dose 0.4 MG; Start 05/12/18 at 21:00 STEVEN BLANCO MD May 13, 2018 09:56
--- NOTE | 2018-05-13 12:56 | CONS ---
Assessment/Plan Assessment/Plan Hospital Course (Demo Recall) Awake, looks comfortable, no fevers, tolerates tube feeding Indwelling: PEG Physical examination: Well-developed chronically ill-appearing wasted elderly man who is in no distress. Head atraumatic normocephalic sclera nonicteric. Neck is supple chest rise symmetrical breath sounds diminished bases. Heart: S1-S2 abdomen distended tender on palpation extremities without cyanosis Assessment: 1. Recurrent UTI 2. Status post GI bleeding===> underwent EGD with Hemoclip placement 3. Urinary retention==> on Flomax 4. History MRSA nares colonization 5. Dysphagia 6. Dementia Plan: Stable off abx, continue bladder scan with straight cath as needed, continue Flomax Consultation Date/Type/Reason Admit Date/Time Mar 27, 2018 at 20:08 Initial Consult Date 04/02/18 Type of Consult ID Requesting Provider: DEENA BASILIO Date/Time of Note DATE: 05/13/18 TIME: 12:56 Exam/Review of Systems Exam Vitals Vital Signs Date Temp Pulse Resp B/P (MAP) Pulse Ox O2 O2 Flow FiO2 Time Delivery Rate 05/13/18 98.8 70 16 126/59 96 07:17 (81) 05/11/18 Room Air 14:07 Intake and Output 05/12/18 05/12/18 05/13/18 1414:59 22:59 06:59 IntakeIntake Total 360 ml 280 ml 700 ml OutputOutput Total 950 ml 600 ml BalanceBalance 360 ml -670 ml 100 ml Results Result Diagram: 05/12/18 0437 05/13/18 0653 Results 24hrs Laboratory Tests Test 05/13/18 06:53 Sodium Level 140 Potassium Level 4.6 Chloride Level 109 Carbon Dioxide Level 30 Anion Gap 1 L Blood Urea Nitrogen 31 H Creatinine 0.89 Est Glomerular Filtrat Rate mL/min Glucose Level 104 # Calcium Level 8.6 Medications Medication Current Medications Ascorbic Acid (Vitamin C) 500 mg DAILY NGT Last administered on 05/13/18at 08:51; Admin Dose 500 MG; Start 04/09/18 at 14:00 Zinc Sulfate (Zinc Sulfate) 220 mg DAILY NGT Last administered on 05/13/18at 08:51; Admin Dose 220 MG; Start 04/10/18 at 09:00 Lansoprazole (Prevacid) 30 mg BID@0600,1800 PO Last administered on 05/13/18 06:19; Admin Dose 30 MG; Start 04/14/18 at 18:00 Multivitamins (Multivitamin) 30 ml DAILY NGT Last administered on 05/13/18 08:51; Admin Dose 30 ML; Start 04/16/18 at 16:30 Morphine Sulfate (morphine) 6 mg Q4H PRN NGT SEVERE PAIN LEVEL 7-10; Start 04/30/18 at 21:30 Collagenase (Santyl) 1 applic DAILY TOP Last administered on 05/13/18at 08:51; Admin Dose 1 APPLIC; Start 05/02/18 at 16:00 Tamsulosin HCl (Flomax) 0.4 mg BID PO Last administered on 05/13/18 08:51; Admin Dose 0.4 MG; Start 05/12/18 at 21:00 DAVONTE MCMAHAN NP May 13, 2018 12:56
[2018-05-13 14:17] VITALS: BP 112/62; PULSE 88; RESP 16
--- NOTE | 2018-05-13 16:39 | PN ---
Date/Time of Note Date/Time of Note DATE: 05/13/18 TIME: 16:32 Assessment/Plan VTE Prophylaxis Risk score (from Ns)>0 risk: 3 SCD applied (from Ns): Yes Pharmacological prophylaxis: NA/contraindicated Pharm contraindication: bleeding Lines/Catheters IV [facility]from [facility] Saline Lock Urinary Cath still in place: No Assessment/Plan Hospital Course Honeycutt was discontinued yesterday, however, patient is still retaining urine requiring every 6 hours in an out catheter. We will add Urecholine. Assessment/Plan -Hyperkalemia, resolved -VRE urinary tract infection, completed treatment with Zyvox. -Possible aspiration pneumonia, continue antibiotics per ID. -Anemia secondary to GI bleed. Dr. Gomes is following in GI consultation. Transfuse as needed, monitor hemoglobin and hematocrit. -Bleeding gastric ulcers, s/p hemostasis with placement of hemoclip during EGD by Dr Guallpa on 04/03/18. Continue Protonix. -S/p septic shock secondary to urinary tract infection, continue antibiotics per ID. Dr. Guzman is following in infection disease consultation. -Hypoxemic respiratory failure, resolving. Dr. Nam is following in p ulmonology consultation. -Acute kidney injury, resolved. Dr. Senior following in nephrology consultation. -Hypernatremia, resolved. 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 -Protein calorie malnutrition -S/P EGD 05/06 in which PEG was not able to be placed, status post G-tube placement by radiology. -No family, patient is appropriate for PEG placement and DNR status as per decision of the bioethics committee -Urinary retention, continue Honeycutt catheter Further recommendations based on clinical course. Plan of care discussed with Dr. Kiser. Result Diagram: 05/12/18 0437 05/13/18 0653 Results 24hrs Laboratory Tests Test 05/13/18 06:53 Sodium Level 140 Potassium Level 4.6 Chloride Level 109 Carbon Dioxide Level 30 Anion Gap 1 L Blood Urea Nitrogen 31 H Creatinine 0.89 Est Glomerular Filtrat Rate mL/min Glucose Level 104 # Calcium Level 8.6 Exam/Review of Systems Exam Vitals Vital Signs Date Temp Pulse Resp B/P (MAP) Pulse Ox O2 O2 Flow FiO2 Time Delivery Rate 05/13/18 98.2 88 16 112/62 96 14:17 (79) 05/11/18 Room Air 14:07 Intake and Output 05/12/18 05/12/18 05/13/18 1515:00 23:00 07:00 IntakeIntake Total 360 ml 280 ml 700 ml OutputOutput Total 950 ml 600 ml BalanceBalance 360 ml -670 ml 100 ml Exam Constitutional: alert, oriented, frail Respiratory: diminished breath sounds Cardiovascular: nl pulses Gastrointestinal: soft, non-tender. GT Musculoskeletal: muscle weakness Extremities: normal pulses Results Results 24hrs Laboratory Tests Test 05/13/18 06:53 Sodium Level 140 Potassium Level 4.6 Chloride Level 109 Carbon Dioxide Level 30 Anion Gap 1 L Blood Urea Nitrogen 31 H Creatinine 0.89 Est Glomerular Filtrat Rate mL/min Glucose Level 104 # Calcium Level 8.6 Medications Medication Current Medications Ascorbic Acid (Vitamin C) 500 mg DAILY NGT Last administered on 05/13/18 08:51; Admin Dose 500 MG; Start 04/09/18 at 14:00 Zinc Sulfate (Zinc Sulfate) 220 mg DAILY NGT Last administered on 05/13/18 08:51; Admin Dose 220 MG; Start 04/10/18 at 09:00 Lansoprazole (Prevacid) 30 mg BID@0600,1800 PO Last administered on 05/13/18 06:19; Admin Dose 30 MG; Start 04/14/18 at 18:00 Multivitamins (Multivitamin) 30 ml DAILY NGT Last administered on 05/13/18 08:51; Admin Dose 30 ML; Start 04/16/18 at 16:30 Morphine Sulfate (morphine) 6 mg Q4H PRN NGT SEVERE PAIN LEVEL 7-10; Start 04/30/18 at 21:30 Collagenase (Santyl) 1 applic DAILY TOP Last administered on 05/13/18 08:51; Admin Dose 1 APPLIC; Start 05/02/18 at 16:00 Tamsulosin HCl (Flomax) 0.4 mg BID PO Last administered on 05/13/18 08:51; Admin Dose 0.4 MG; Start 05/12/18 at 21:00 JUDY CORNEJO May 13, 2018 16:39
[2018-05-13 20:00] VITALS: BP 121/60; PULSE 87; RESP 18
[2018-05-13] MEDS: BETHANECHOL 10 MG TAB PO SCH (21:36)
[2018-05-14 02:16] VITALS: BP 103/55; PULSE 81; RESP 18
[2018-05-14] MEDS: LANSOPRAZOLE 30 MG CAP PO SCH ×2 (05:13→17:50)
--- NOTE | 2018-05-14 07:01 | CONS ---
Assessment/Plan Assessment/Plan Hospital Course (Demo Recall) 88 yo male presented with urosepsis and respiratory failure and coffee ground emesis 1. Upper GI bleed manifested through coffee ground emesis and melena -s/p EGD -resolved 2. Gastric ulcers, etiology of bleed -resolved 3. Hiatal hernia 4. Anemia secondary to gastric ulcer bleeding -stable but slowly trending down, no active GI bleeding noted, FOB neg 04/16 -monitor closely -stable 5. UTI -VRE in urine cx 05/05 -resolved 6. Dysphagia -g tube placed 7. Malnutrition. -g tube 8. Liver cirrhosis, with positive smooth muscle titer and smooth muscle ab interp POS 9. S/P EGD 05/06 in which PEG was not able to be placed 10. Mild gastritis 11. Hiatal hernia 12. Urinary retention -flomax, bladder scans and straight caths Gastric ulcer biopsy: -- Body mucosa showing focal dilation of gastric glands and a few scattered plasma cells in the superficial lamina propria. -- The features are suggestive of an early fundic gland polyp. -- No erosion or ulceration is identified. -- No Helicobacter organisms are seen in a Giemsa stain (positive control concurrently reviewed). -- There is no evidence of malignancy. Plan: Miralax 17 gm qd Continue with tube feeds, monitor residuals Aspiration precautions Monitor HH Pt examined and plan of care discussed with Dr. Gomes Consultation Date/Type/Reason Admit Date/Time Mar 27, 2018 at 20:08 Initial Consult Date 04/02/18 Requesting Provider: DEENA BASILIO Date/Time of Note DATE: 05/14/18 TIME: 06:59 24 HR Interval Summary Free Text/Dictation Tolerating tube feeds. Small pebble like brown bm over night. Denies abd pain or N/V. No evidence of GI bleeding. Exam/Review of Systems Exam Vitals Vital Signs Date Temp Pulse Resp B/P (MAP) Pulse Ox O2 O2 Flow FiO2 Time Delivery Rate 05/14/18 97.8 81 18 103/55 95 02:16 (71) 05/11/18 Room Air 14:07 Intake and Output 05/13/18 05/13/18 05/14/18 1515:00 23:00 07:00 IntakeIntake Total 50 ml 60 ml 1090 ml OutputOutput Total 600 ml 500 ml 350 ml BalanceBalance -550 ml -440 ml 740 ml Constitutional: alert Eyes: nl sclera, PERRL Gastrointestinal: soft, non-tender, other (g tube site clean and dry) Neurological: confused Results Result Diagram: 05/12/18 0437 05/13/18 0653 Medications Medication Current Medications Ascorbic Acid (Vitamin C) 500 mg DAILY NGT Last administered on 05/13/18 08:51; Admin Dose 500 MG; Start 04/09/18 at 14:00 Zinc Sulfate (Zinc Sulfate) 220 mg DAILY NGT Last administered on 05/13/18 08:51; Admin Dose 220 MG; Start 04/10/18 at 09:00 Lansoprazole (Prevacid) 30 mg BID@0600,1800 PO Last administered on 05/14/18 05:13; Admin Dose 30 MG; Start 04/14/18 at 18:00 Multivitamins (Multivitamin) 30 ml DAILY NGT Last administered on 05/13/18 08:51; Admin Dose 30 ML; Start 04/16/18 at 16:30 Morphine Sulfate (morphine) 6 mg Q4H PRN NGT SEVERE PAIN LEVEL 7-10; Start 04/30/18 at 21:30 Collagenase (Santyl) 1 applic DAILY TOP Last administered on 05/13/18 08:51; Admin Dose 1 APPLIC; Start 05/02/18 at 16:00 Tamsulosin HCl (Flomax) 0.4 mg BID PO Last administered on 05/13/18 21:36; Admin Dose 0.4 MG; Start 05/12/18 at 21:00 Bethanechol Chloride (Urecholine) 10 mg TID PO Last administered on 05/13/18 21:36; Admin Dose 10 MG; Start 05/13/18 at 21:00 SOREN DOVE May 14, 2018 07:01
[2018-05-14 07:20] VITALS: BP 117/57; PULSE 83; RESP 18
[2018-05-14] MEDS: COLLAGENASE 5 GM (UD JAR) TOP SCH (08:42)
[2018-05-14] MEDS: TAMSULOSIN (SR) 0.4 MG CAP PO SCH ×2 (08:42→20:39)
[2018-05-14] MEDS: ASCORBIC ACID 500 MG TAB NGT SCH (08:42)
[2018-05-14] MEDS: ZINC SULFATE 220 MG CAP NGT SCH (08:42)
[2018-05-14] MEDS: BETHANECHOL 10 MG TAB PO SCH ×2 (08:42→13:19)
[2018-05-14] MEDS: MULTIVITAMINS 30 ML CUP NGT SCH (08:46)
[2018-05-14] MEDS: POLYETHYLENE GLYCOL 17 GM PACKET GTB SCH (08:46)
--- NOTE | 2018-05-14 09:02 | CONS ---
Assessment/Plan Assessment/Plan Assessment/Plan (Daily) 1. Acute kidney injury on CKD due to ATN + prerenal azotemia 2. acute blood loss anemia- 3. acute hyperkalemia- now resolved 4. acute hypoxemic respiratory failure 5. Sepsis due to acute UTI 6. Severe metabolic acidosis due to FLORES 7. Hypernatremia - resolved 8. Upper GI bleeding 9. H/o BPH on Flomax Plan: BUN/Cr 31/0.89 Na improved to normal 138 WBC still high 12.7 , monitor electrolytes and replace as needed Renal US showed No evidence of hydronephrosis or mass, Nonobstructing intrarenal calculi are seen in the mid right kidney measuring 4 mm in 7 mm. 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.8 x 6.7 x 8.3 cm pt is on Zyvox 600mg PO BID , watch for metabolic acidosis Flomax 0,4 mg PO BID - pt iis still having urinary retention, he has been getting bladder scan with straight in and out cath will follow up Consultation Date/Type/Reason Admit Date/Time Mar 27, 2018 at 20:08 Initial Consult Date 03/31/18 Type of Consult NEPHROLOGY Requesting Provider: DEENA BASILIO Date/Time of Note DATE: 05/14/18 TIME: 09:02 Exam/Review of Systems Exam Vitals Vital Signs Date Temp Pulse Resp B/P (MAP) Pulse Ox O2 O2 Flow FiO2 Time Delivery Rate 05/14/18 97.6 83 18 117/57 97 07:20 (77) 05/11/18 Room Air 14:07 Intake and Output 05/13/18 05/13/18 05/14/18 1515:00 23:00 07:00 IntakeIntake Total 50 ml 60 ml 1090 ml OutputOutput Total 600 ml 500 ml 350 ml BalanceBalance -550 ml -440 ml 740 ml Results Result Diagram: 05/12/18 0437 05/14/18 0524 Results 24hrs Laboratory Tests Test 05/14/18 05:24 Sodium Level 138 Potassium Level 4.0 Chloride Level 105 Carbon Dioxide Level 30 Anion Gap 3 L Blood Urea Nitrogen 31 H Creatinine 0.89 Est Glomerular Filtrat Rate mL/min Glucose Level 126 Calcium Level 8.6 Medications Medication Current Medications Ascorbic Acid (Vitamin C) 500 mg DAILY NGT Last administered on 05/14/18at 08:42; Admin Dose 500 MG; Start 04/09/18 at 14:00 Zinc Sulfate (Zinc Sulfate) 220 mg DAILY NGT Last administered on 05/14/18 08:42; Admin Dose 220 MG; Start 04/10/18 at 09:00 Lansoprazole (Prevacid) 30 mg BID@0600,1800 PO Last administered on 05/14/18 05:13; Admin Dose 30 MG; Start 04/14/18 at 18:00 Multivitamins (Multivitamin) 30 ml DAILY NGT Last administered on 05/14/18 08:46; Admin Dose 30 ML; Start 04/16/18 at 16:30 Morphine Sulfate (morphine) 6 mg Q4H PRN NGT SEVERE PAIN LEVEL 7-10; Start 04/30/18 at 21:30 Collagenase (Santyl) 1 applic DAILY TOP Last administered on 05/14/18 08:42; Admin Dose 1 APPLIC; Start 05/02/18 at 16:00 Tamsulosin HCl (Flomax) 0.4 mg BID PO Last administered on 05/14/18 08:42; Admin Dose 0.4 MG; Start 05/12/18 at 21:00 Bethanechol Chloride (Urecholine) 10 mg TID PO Last administered on 05/14/18 08:42; Admin Dose 10 MG; Start 05/13/18 at 21:00 Polyethylene Glycol (Miralax) 17 gm DAILY GTB Last administered on 05/14/18 08:46; Admin Dose 17 GM; Start 05/14/18 at 09:00 STEVEN BLANCO MD May 14, 2018 09:02
--- NOTE | 2018-05-14 11:58 | CONS ---
Assessment/Plan Assessment/Plan Hospital Course (Demo Recall) No acute events, looks comfortable, no fevers, tolerates tube feeding Indwelling: PEG Physical examination: Well-developed chronically ill-appearing wasted elderly man who is in no distress. Head atraumatic normocephalic sclera nonicteric. Neck is supple chest rise symmetrical breath sounds diminished bases. Heart: S1-S2 abdomen distended tender on palpation extremities without cyanosis Assessment: 1. Status post recurrent UTI, Honeycutt was discontinued 2. Status post GI bleeding===> underwent EGD with Hemoclip placement 3. Urinary retention==> on Flomax 4. History MRSA nares colonization 5. Dysphagia 6. Dementia Plan: Stable off abx, continue bladder scan with straight cath, continue Flomax, aspiration precautions Consultation Date/Type/Reason Admit Date/Time Mar 27, 2018 at 20:08 Initial Consult Date 04/02/18 Type of Consult ID Requesting Provider: DEENA BASILIO Date/Time of Note DATE: 05/14/18 TIME: 11:57 Exam/Review of Systems Exam Vitals Vital Signs Date Temp Pulse Resp B/P (MAP) Pulse Ox O2 O2 Flow FiO2 Time Delivery Rate 05/14/18 97.6 83 18 117/57 97 07:20 (77) 05/11/18 Room Air 14:07 Intake and Output 05/13/18 05/13/18 05/14/18 1515:00 23:00 07:00 IntakeIntake Total 50 ml 60 ml 1090 ml OutputOutput Total 600 ml 500 ml 350 ml BalanceBalance -550 ml -440 ml 740 ml Results Result Diagram: 05/12/18 0437 05/14/18 0524 Results 24hrs Laboratory Tests Test 05/14/18 05:24 Sodium Level 138 Potassium Level 4.0 Chloride Level 105 Carbon Dioxide Level 30 Anion Gap 3 L Blood Urea Nitrogen 31 H Creatinine 0.89 Est Glomerular Filtrat Rate mL/min Glucose Level 126 Calcium Level 8.6 Medications Medication Current Medications Ascorbic Acid (Vitamin C) 500 mg DAILY NGT Last administered on 05/14/18at 08:42; Admin Dose 500 MG; Start 04/09/18 at 14:00 Zinc Sulfate (Zinc Sulfate) 220 mg DAILY NGT Last administered on 05/14/18at 08:42; Admin Dose 220 MG; Start 04/10/18 at 09:00 Lansoprazole (Prevacid) 30 mg BID@0600,1800 PO Last administered on 05/14/18 05:13; Admin Dose 30 MG; Start 04/14/18 at 18:00 Multivitamins (Multivitamin) 30 ml DAILY NGT Last administered on 05/14/18 08:46; Admin Dose 30 ML; Start 04/16/18 at 16:30 Morphine Sulfate (morphine) 6 mg Q4H PRN NGT SEVERE PAIN LEVEL 7-10; Start 04/30/18 at 21:30 Collagenase (Santyl) 1 applic DAILY TOP Last administered on 05/14/18 08:42; Admin Dose 1 APPLIC; Start 05/02/18 at 16:00 Tamsulosin HCl (Flomax) 0.4 mg BID PO Last administered on 05/14/18 08:42; Admin Dose 0.4 MG; Start 05/12/18 at 21:00 Bethanechol Chloride (Urecholine) 10 mg TID PO Last administered on 05/14/18 08:42; Admin Dose 10 MG; Start 05/13/18 at 21:00 Polyethylene Glycol (Miralax) 17 gm DAILY GTB Last administered on 05/14/18 08:46; Admin Dose 17 GM; Start 05/14/18 at 09:00 DAVONTE MCMAHAN NP May 14, 2018 11:58
[2018-05-14 14:09] VITALS: BP 133/62; PULSE 86; RESP 18
--- NOTE | 2018-05-14 19:06 | PN ---
Date/Time of Note Date/Time of Note DATE: 05/14/18 TIME: 19:02 Assessment/Plan VTE Prophylaxis Risk score (from Ns)>0 risk: 4 SCD applied (from Ns): Yes Pharmacological prophylaxis: NA/contraindicated Pharm contraindication: bleeding Lines/Catheters [facility]from [facility] Saline Lock Urinary Cath still in place: No Assessment/Plan Hospital Course Patient continues to have urinary retention, will increase Urecholine continue post void residual monitoring and in and out catheter. Pending [facility] facility placement. Assessment/Plan -Hyperkalemia, resolved -VRE urinary tract infection, completed treatment with Zyvox. -Possible aspiration pneumonia, continue antibiotics per ID. -Anemia secondary to GI bleed. Dr. Gomes is following in GI consultation. Transfuse as needed, monitor hemoglobin and hematocrit. -Bleeding gastric ulcers, s/p hemostasis with placement of hemoclip during EGD by Dr Guallpa on 04/03/18. Continue Protonix. -S/p septic shock secondary to urinary tract infection, continue antibiotics per ID. Dr. Guzman is following in infection disease consultation. -Hypoxemic respiratory failure, resolving. Dr. Nam is following in pulmonology consultation. -Acute kidney injury, resolved. Dr. Senior following in nephrology consultation. -Hypernatremia, resolved. 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 -Protein calorie malnutrition -S/P EGD 05/06 in which PEG was not able to be placed, status post G-tube placement by radiology -No family, patient is appropriate for PEG placement and DNR status as per decision of the bioethics committee -Urinary retention, continue Flomax and Urecholine, monitor postvoid residual, in and out catheter Further recommendations based on clinical course. Plan of care discussed with Dr. Kiser. Result Diagram: 05/12/18 0437 05/14/18 0524 Results 24hrs Laboratory Tests Test 05/14/18 05:24 Sodium Level 138 Potassium Level 4.0 Chloride Level 105 Carbon Dioxide Level 30 Anion Gap 3 L Blood Urea Nitrogen 31 H Creatinine 0.89 Est Glomerular Filtrat Rate mL/min Glucose Level 126 Calcium Level 8.6 Exam/Review of Systems Exam Vitals Vital Signs Date Temp Pulse Resp B/P (MAP) Pulse Ox O2 O2 Flow FiO2 Time Delivery Rate 05/14/18 98.5 86 18 133/62 97 14:09 (85) 05/11/18 Room Air 14:07 Intake and Output 05/13/18 05/13/18 05/14/18 1515:00 23:00 07:00 IntakeIntake Total 50 ml 60 ml 1090 ml OutputOutput Total 600 ml 500 ml 350 ml BalanceBalance -550 ml -440 ml 740 ml Exam Constitutional: alert, oriented, frail Respiratory: diminished breath sounds Cardiovascular: nl pulses Gastrointestinal: soft, non-tender. GT Musculoskeletal: muscle weakness Extremities: normal pulses Results Results 24hrs Laboratory Tests Test 05/14/18 05:24 Sodium Level 138 Potassium Level 4.0 Chloride Level 105 Carbon Dioxide Level 30 Anion Gap 3 L Blood Urea Nitrogen 31 H Creatinine 0.89 Est Glomerular Filtrat Rate mL/min Glucose Level 126 Calcium Level 8.6 Medications Medication Current Medications Ascorbic Acid (Vitamin C) 500 mg DAILY NGT Last administered on 05/14/18 08:42; Admin Dose 500 MG; Start 04/09/18 at 14:00 Zinc Sulfate (Zinc Sulfate) 220 mg DAILY NGT Last administered on 05/14/18 08:42; Admin Dose 220 MG; Start 04/10/18 at 09:00 Lansoprazole (Prevacid) 30 mg BID@0600,1800 PO Last administered on 05/14/18 17:50; Admin Dose 30 MG; Start 04/14/18 at 18:00 Multivitamins (Multivitamin) 30 ml DAILY NGT Last administered on 05/14/18 08:46; Admin Dose 30 ML; Start 04/16/18 at 16:30 Morphine Sulfate (morphine) 6 mg Q4H PRN NGT SEVERE PAIN LEVEL 7-10; Start 04/30/18 at 21:30 Collagenase (Santyl) 1 applic DAILY TOP Last administered on 05/14/18 08:42; Admin Dose 1 APPLIC; Start 05/02/18 at 16:00 Tamsulosin HCl (Flomax) 0.4 mg BID PO Last administered on 05/14/18 08:42; Admin Dose 0.4 MG; Start 05/12/18 at 21:00 Bethanechol Chloride (Urecholine) 10 mg TID PO Last administered on 05/14/18at 13:19; Admin Dose 10 MG; Start 05/13/18 at 21:00 Polyethylene Glycol (Miralax) 17 gm DAILY GTB Last administered on 05/14/18at 08:46; Admin Dose 17 GM; Start 05/14/18 at 09:00 JUDY CORNEJO May 14, 2018 19:06
[2018-05-14 20:00] VITALS: BP 122/57; PULSE 89; RESP 16
[2018-05-14] MEDS: BETHANECHOL 25 MG TAB PO SCH (20:39)
[2018-05-14] MEDS ORDERED: BETHANECHOL 10 MG TAB PO SCH (21:00)
[2018-05-15 02:00] VITALS: BP 113/54; PULSE 74; RESP 16
[2018-05-15] MEDS: LANSOPRAZOLE 30 MG CAP PO SCH ×2 (05:44→17:40)
[2018-05-15 07:31] VITALS: BP 125/58; PULSE 73; RESP 16
[2018-05-15] MEDS: ZINC SULFATE 220 MG CAP NGT SCH (09:03)
[2018-05-15] MEDS: COLLAGENASE 5 GM (UD JAR) TOP SCH (09:03)
[2018-05-15] MEDS: BETHANECHOL 25 MG TAB PO SCH ×3 (09:03→21:47)
[2018-05-15] MEDS: POLYETHYLENE GLYCOL 17 GM PACKET GTB SCH (09:03)
[2018-05-15] MEDS: TAMSULOSIN (SR) 0.4 MG CAP PO SCH ×2 (09:03→21:47)
[2018-05-15] MEDS: MULTIVITAMINS 30 ML CUP NGT SCH (09:03)
[2018-05-15] MEDS: ASCORBIC ACID 500 MG TAB NGT SCH (09:04)
--- NOTE | 2018-05-15 10:10 | CONS ---
Assessment/Plan Assessment/Plan Assessment/Plan (Daily) 1. Acute kidney injury on CKD due to ATN + prerenal azotemia 2. acute blood loss anemia- 3. acute hyperkalemia- now resolved 4. acute hypoxemic respiratory failure 5. Sepsis due to acute UTI 6. Severe metabolic acidosis due to FLORES 7. Hypernatremia - resolved 8. Upper GI bleeding 9. H/o BPH on Flomax Plan: BUN/Cr 31/0.89 Na improved to normal 138 WBC still high 12.7 , monitor electrolytes and replace as needed Renal US showed No evidence of hydronephrosis or mass, Nonobstructing intrarenal calculi are seen in the mid right kidney measuring 4 mm in 7 mm. 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.8 x 6.7 x 8.3 cm Flomax 0,4 mg PO BID - pt iis still having urinary retention, he has been getting bladder scan with straight in and out cath will follow up Consultation Date/Type/Reason Admit Date/Time Mar 27, 2018 at 20:08 Initial Consult Date 03/31/18 Type of Consult NEPHROLOGY Requesting Provider: DEENA BASILIO Date/Time of Note DATE: 05/15/18 TIME: 10:10 Exam/Review of Systems Exam Vitals Vital Signs Date Temp Pulse Resp B/P (MAP) Pulse Ox O2 O2 Flow FiO2 Time Delivery Rate 05/15/18 97.8 73 16 125/58 96 Room Air 07:31 (80) Intake and Output 05/14/18 05/14/18 05/15/18 1515:00 23:00 07:00 IntakeIntake Total 360 ml 1090 ml OutputOutput Total 600 ml 300 ml BalanceBalance 360 ml -600 ml 790 ml Results Result Diagram: 05/12/18 0437 05/14/18 0524 Medications Medication Current Medications Ascorbic Acid (Vitamin C) 500 mg DAILY NGT Last administered on 05/15/18at 09: 04; Admin Dose 500 MG; Start 04/09/18 at 14:00 Zinc Sulfate (Zinc Sulfate) 220 mg DAILY NGT Last administered on 05/15/18at 09:03; Admin Dose 220 MG; Start 04/10/18 at 09:00 Lansoprazole (Prevacid) 30 mg BID@0600,1800 PO Last administered on 05/15/18at 05:44; Admin Dose 30 MG; Start 04/14/18 at 18:00 Multivitamins (Multivitamin) 30 ml DAILY NGT Last administered on 05/15/18 09:03; Admin Dose 30 ML; Start 04/16/18 at 16:30 Morphine Sulfate (morphine) 6 mg Q4H PRN NGT SEVERE PAIN LEVEL 7-10; Start 04/30/18 at 21:30 Collagenase (Santyl) 1 applic DAILY TOP Last administered on 05/15/18 09:03; Admin Dose 1 APPLIC; Start 05/02/18 at 16:00 Tamsulosin HCl (Flomax) 0.4 mg BID PO Last administered on 05/15/18 09:03; Admin Dose 0.4 MG; Start 05/12/18 at 21:00 Polyethylene Glycol (Miralax) 17 gm DAILY GTB Last administered on 05/15/18 09:03; Admin Dose 17 GM; Start 05/14/18 at 09:00 Bethanechol Chloride (Urecholine) 25 mg TID PO Last administered on 05/15/18 09:03; Admin Dose 25 MG; Start 05/14/18 at 21:00 STEVEN BLANCO MD May 15, 2018 10:10
--- NOTE | 2018-05-15 12:30 | CONS ---
Assessment/Plan Assessment/Plan Assessment/Plan (Daily) 88 yo male presented with urosepsis and respiratory failure and coffee ground emesis 1. Upper GI bleed manifested through coffee ground emesis and melena -s/p EGD -resolved 2. Gastric ulcers, etiology of bleed -resolved 3. Hiatal hernia 4. Anemia secondary to gastric ulcer bleeding -stable but slowly trending down, no active GI bleeding noted, FOB neg 04/16 -monitor closely -stable 5. UTI -VRE in urine cx 05/05 -resolved 6. Dysphagia -g tube placed 7. Malnutrition. -g tube 8. Liver cirrhosis, with positive smooth muscle titer and smooth muscle ab interp POS 9. S/P EGD 05/06 in which PEG was not able to be placed 10. Mild gastritis 11. Hiatal hernia 12. Urinary retention -flomax, bladder scans and straight caths Gastric ulcer biopsy: -- Body mucosa showing focal dilation of gastric glands and a few scattered plasma cells in the superficial lamina propria. -- The features are suggestive of an early fundic gland polyp. -- No erosion or ulceration is identified. -- No Helicobacter organisms are seen in a Giemsa stain (positive control concurrently reviewed). -- There is no evidence of malignancy. Plan: Miralax 17 gm qd Continue with tube feeds, monitor residuals Aspiration precautions Monitor HH Consultation Date/Type/Reason Admit Date/Time Mar 27, 2018 at 20:08 Initial Consult Date 04/02/18 Requesting Provider: DEENA BASILIO Date/Time of Note DATE: 05/15/18 TIME: 12:29 24 HR Interval Summary Constitutional: no complaints, improved Exam/Review of Systems Exam Vitals Vital Signs Date Temp Pulse Resp B/P (MAP) Pulse Ox O2 O2 Flow FiO2 Time Delivery Rate 05/15/18 97.8 73 16 125/58 96 Room Air 07:31 (80) Intake and Output 05/14/18 05/14/18 05/15/18 1414:59 22:59 06:59 IntakeIntake Total 360 ml 1090 ml OutputOutput Total 600 ml 300 ml BalanceBalance 360 ml -600 ml 790 ml Constitutional: alert, oriented, well developed Psych: no complaints, nl mood/affect Head: normocephalic, atraumatic Eyes: nl conjunctiva, EOMI, nl lids, nl sclera, PERRL ENMT: nl external ears & nose, nl lips & teeth, nl nasal mucosa & septum Neck: supple, non-tender Respiratory: clear to auscultation, normal air movement Cardiovascular: regular rate and rhythm, nl pulses Gastrointestinal: soft, nl liver, spleen, non-tender Musculoskeletal: nl extremities to inspection, nl gait and stance Extremities: normal pulses Neurological: HISTOLOGY ASSISTANT II-XII intact, nl mental status, nl speech, nl strength Skin: nl turgor; No rash or lesions Lymph: nl lymph nodes Results Result Diagram: 05/12/187 05/14/18 0524 Medications Medication Current Medications Ascorbic Acid (Vitamin C) 500 mg DAILY NGT Last administered on 05/15/18 09:04; Admin Dose 500 MG; Start 04/09/18 at 14:00 Zinc Sulfate (Zinc Sulfate) 220 mg DAILY NGT Last administered on 05/15/18 09 :03; Admin Dose 220 MG; Start 04/10/18 at 09:00 Lansoprazole (Prevacid) 30 mg BID@0600,1800 PO Last administered on 05/15/18 05:44; Admin Dose 30 MG; Start 04/14/18 at 18:00 Multivitamins (Multivitamin) 30 ml DAILY NGT Last administered on 05/15/18 09:03; Admin Dose 30 ML; Start 04/16/18 at 16:30 Morphine Sulfate (morphine) 6 mg Q4H PRN NGT SEVERE PAIN LEVEL 7-10; Start 04/30/18 at 21:30 Collagenase (Santyl) 1 applic DAILY TOP Last administered on 05/15/18 09:03; Admin Dose 1 APPLIC; Start 05/02/18 at 16:00 Tamsulosin HCl (Flomax) 0.4 mg BID PO Last administered on 05/15/18 09:03; Admin Dose 0.4 MG; Start 05/12/18 at 21:00 Polyethylene Glycol (Miralax) 17 gm DAILY GTB Last administered on 05/15/18 09:03; Admin Dose 17 GM; Start 05/14/18 at 09:00 Bethanechol Chloride (Urecholine) 25 mg TID PO Last administered on 05/15/18 09:03; Admin Dose 25 MG; Start 05/14/18 at 21:00 ATTILA UMANZOR MD May 15, 2018 12:30
--- NOTE | 2018-05-15 12:31 | PN ---
Date/Time of Note Date/Time of Note DATE: 05/15/18 TIME: 12:28 Assessment/Plan VTE Prophylaxis Risk score (from Ns)>0 risk: 5 SCD applied (from Ns): Yes Pharmacological prophylaxis: NA/contraindicated Pharm contraindication: bleeding Lines/Catheters [facility] Saline Lock Urinary Cath still in place: No Assessment/Plan Hospital Course Patient is not able to void currently had in and out catheter every 8 hours with large urinary output we will reinsert the Honeycutt. Patient is stable, tolerates feeding, will discharge patient to halfway facility when bed is available. Assessment/Plan -Hyperkalemia, resolved -VRE urinary tract infection, completed treatment with Zyvox. -Possible aspiration pneumonia, continue antibiotics per ID. -Anemia secondary to GI bleed. Dr. Gomes is following in GI consultation. T ransfuse as needed, monitor hemoglobin and hematocrit. -Bleeding gastric ulcers, s/p hemostasis with placement of hemoclip during EGD by Dr Guallpa on 04/03/18. Continue Protonix. -S/p septic shock secondary to urinary tract infection, continue antibiotics per ID. Dr. Guzman is following in infection disease consultation. -Hypoxemic respiratory failure, resolving. Dr. Nam is following in pulmo nology consultation. -Acute kidney injury, resolved. Dr. Senior following in nephrology consultation. -Hypernatremia, resolved. 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 -Protein calorie malnutrition -S/P EGD 05/06 in which PEG was not able to be placed, s/p G-tube placement by radiology -No family, patient is appropriate for PEG placement and DNR status as per decision of the bioethics committee -Urinary retention, continue Honeycutt catheter Further recommendations based on clinical course. Plan of care discussed with Dr. Kiser. Result Diagram: 05/12/18 0437 05/14/18 0524 Exam/Review of Systems Exam Vitals Vital Signs Date Temp Pulse Resp B/P (MAP) Pulse Ox O2 O2 Flow FiO2 Time Delivery Rate 05/15/18 97.8 73 16 125/58 96 Room Air 07:31 (80) Intake and Output 05/14/18 05/14/18 05/15/18 1515:00 23:00 07:00 IntakeIntake Total 360 ml 1090 ml OutputOutput Total 600 ml 300 ml BalanceBalance 360 ml -600 ml 790 ml Exam Constitutional: alert, oriented, frail Respiratory: diminished breath sounds Cardiovascular: nl pulses Gastrointestinal: soft, non-tender. GT Musculoskeletal: muscle weakness Extremities: normal pulses Medications Medication Current Medications Ascorbic Acid (Vitamin C) 500 mg DAILY NGT Last administered on 05/15/18 09:04; Admin Dose 500 MG; Start 04/09/18 at 14:00 Zinc Sulfate (Zinc Sulfate) 220 mg DAILY NGT Last administered on 05/15/18 09:03; Admin Dose 220 MG; Start 04/10/18 at 09:00 Lansoprazole (Prevacid) 30 mg BID@0600,1800 PO Last administered on 05/15/18 05:44; Admin Dose 30 MG; Start 04/14/18 at 18:00 Multivitamins (Multivitamin) 30 ml DAILY NGT Last administered on 05/15/18 09:03; Admin Dose 30 ML; Start 04/16/18 at 16:30 Morphine Sulfate (morphine) 6 mg Q4H PRN NGT SEVERE PAIN LEVEL 7-10; Start 04/30/18 at 21:30 Collagenase (Santyl) 1 applic DAILY TOP Last administered on 05/15/18 09:03; Admin Dose 1 APPLIC; Start 05/02/18 at 16:00 Tamsulosin HCl (Flomax) 0.4 mg BID PO Last administered on 05/15/18 09:03; Admin Dose 0.4 MG; Start 05/12/18 at 21:00 Polyethylene Glycol (Miralax) 17 gm DAILY GTB Last administered on 05/15/18 09:03; Admin Dose 17 GM; Start 05/14/18 at 09:00 Bethanechol Chloride (Urecholine) 25 mg TID PO Last administered on 05/15/18 09:03; Admin Dose 25 MG; Start 05/14/18 at 21:00 JUDY CORNEJO May 15, 2018 12:31
[2018-05-15 14:19] VITALS: BP 105/53; PULSE 77; RESP 16
--- NOTE | 2018-05-15 14:32 | CONS ---
Assessment/Plan Assessment/Plan Hospital Course (Demo Recall) No acute events, looks comfortable, no fevers, tolerates tube feeding Indwelling: PEG Physical examination: Well-developed chronically ill-appearing wasted elderly man who is in no distress. Head atraumatic normocephalic sclera nonicteric. Neck is supple chest rise symmetrical breath sounds diminished bases. Heart: S1-S2 abdomen distended tender on palpation extremities without cyanosis Assessment: 1. Status post recurrent UTI, Honeycutt was discontinued 2. Status post GI bleeding===> underwent EGD with Hemoclip placement 3. Urinary retention==> on Flomax 4. History MRSA nares colonization 5. Dysphagia 6. Dementia Plan: Remains stable off abx, continue straight cath prn, continue Flomax, aspiration precautions Consultation Date/Type/Reason Admit Date/Time Mar 27, 2018 at 20:08 Initial Consult Date 04/02/18 Type of Consult ID Requesting Provider: DEENA BASILIO Date/Time of Note DATE: 05/15/18 TIME: 14:30 Exam/Review of Systems Exam Vitals Vital Signs Date Temp Pulse Resp B/P (MAP) Pulse Ox O2 O2 Flow FiO2 Time Delivery Rate 05/15/18 98.4 77 16 105/53 95 Room Air 14:19 (70) Intake and Output 05/14/18 05/14/18 05/15/18 1515:00 23:00 07:00 IntakeIntake Total 360 ml 1090 ml OutputOutput Total 600 ml 300 ml BalanceBalance 360 ml -600 ml 790 ml Results Result Diagram: 05/12/18 0437 05/14/18 0524 Medications Medication Current Medications Ascorbic Acid (Vitamin C) 500 mg DAILY NGT Last administered on 05/15/18at 09:04; Admin Dose 500 MG; Start 04/09/18 at 14:00 Zinc Sulfate (Zinc Sulfate) 220 mg DAILY NGT Last administered on 05/15/18at 09:03; Admin Dose 220 MG; Start 04/10/18 at 09:00 Lansoprazole (Prevacid) 30 mg BID@0600,1800 PO Last administered on 05/15/18at 05:44; Admin Dose 30 MG; Start 04/14/18 at 18:00 Multivitamins (Multivitamin) 30 ml DAILY NGT Last administered on 05/15/18at 09:03; Admin Dose 30 ML; Start 04/16/18 at 16:30 Morphine Sulfate (morphine) 6 mg Q4H PRN NGT SEVERE PAIN LEVEL 7-10; Start 04/30/18 at 21:30 Collagenase (Santyl) 1 applic DAILY TOP Last administered on 05/15/18 09:03; Admin Dose 1 APPLIC; Start 05/02/18 at 16:00 Tamsulosin HCl (Flomax) 0.4 mg BID PO Last administered on 05/15/18at 09:03; Admin Dose 0.4 MG; Start 05/12/18 at 21:00 Polyethylene Glycol (Miralax) 17 gm DAILY GTB Last administered on 05/15/18 09:03; Admin Dose 17 GM; Start 05/14/18 at 09:00 Bethanechol Chloride (Urecholine) 25 mg TID PO Last administered on 05/15/18at 12:52; Admin Dose 25 MG; Start 05/14/18 at 21:00 DAVONTE MCMAHAN NP May 15, 2018 14:32
[2018-05-15 20:06] VITALS: BP 122/56; PULSE 73; RESP 16
[2018-05-16 02:00] VITALS: BP 124/60; PULSE 71; RESP 16
[2018-05-16] MEDS: LANSOPRAZOLE 30 MG CAP PO SCH ×2 (05:46→18:50)
[2018-05-16 08:52] VITALS: BP 116/59; PULSE 78; RESP 18
[2018-05-16] MEDS: POLYETHYLENE GLYCOL 17 GM PACKET GTB SCH (09:44)
[2018-05-16] MEDS: MULTIVITAMINS 30 ML CUP NGT SCH (09:45)
[2018-05-16] MEDS: ASCORBIC ACID 500 MG TAB NGT SCH (09:45)
[2018-05-16] MEDS: BETHANECHOL 25 MG TAB PO SCH ×3 (09:45→21:16)
[2018-05-16] MEDS: TAMSULOSIN (SR) 0.4 MG CAP PO SCH ×2 (09:45→21:16)
[2018-05-16] MEDS: ZINC SULFATE 220 MG CAP NGT SCH (09:45)
--- NOTE | 2018-05-16 10:51 | PN ---
Date/Time of Note Date/Time of Note DATE: 05/16/18 TIME: 10:51 Assessment/Plan VTE Prophylaxis Risk score (from Ns)>0 risk: 9 SCD applied (from Ns): Yes Pharmacological prophylaxis: other Lines/Catheters IV Catheter Type (from Nrs): Saline Lock Urinary Cath still in place: Yes Reason Cath still needed: urinary retention Assessment/Plan Assessment/Plan -Hyperkalemia, resolved -VRE urinary tract infection, completed treatment with Zyvox. -Possible aspiration pneumonia, continue antibiotics per ID. -Anemia secondary to GI bleed. Dr. Gomes is following in GI consultation. Transfuse as needed, monitor hemoglobin and hematocrit. -Bleeding gastric ulcers, s/p hemostasis with placement of hemoclip during EGD by Dr Guallpa on 04/03/18. Continue Protonix. -S/p septic shock secondary to urinary tract infection, continue antibiotics per ID. Dr. Guzman is following in infection disease consultation. -Hypoxemic respiratory failure, resolving. Dr. Nam is following in pulmonology consultation. -Acute kidney injury, resolved. Dr. Senior following in nephrology consultation. -Hypernatremia, resolved. 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 -Protein calorie malnutrition -S/P EGD 05/06 in which PEG was not able to be placed, s/p G-tube placement by radiology -No family, patient is appropriate for PEG placement and DNR status as per decision of the bioethics committee -Urinary retention, continue Honeycutt catheter Further recommendations based on clinical course. Plan of care discussed with Dr. Kiser. Result Diagram: 05/12/18 0437 05/14/18 0524 Exam/Review of Systems Exam Vitals Vital Signs Date Temp Pulse Resp B/P (MAP) Pulse Ox O2 O2 Flow FiO2 Time Delivery Rate 05/16/18 97.8 78 18 116/59 97 08:52 (78) 05/15/18 Room Air 14:19 Intake and Output 05/15/18 05/15/18 05/16/18 1515:00 23:00 07:00 IntakeIntake Total 1260 ml 700 ml OutputOutput Total 850 ml BalanceBalance 1260 ml -150 ml Medications Medication Current Medications Ascorbic Acid (Vitamin C) 500 mg DAILY NGT Last administered on 05/16/18 09:4 5; Admin Dose 500 MG; Start 04/09/18 at 14:00 Zinc Sulfate (Zinc Sulfate) 220 mg DAILY NGT Last administered on 05/16/18 09:45; Admin Dose 220 MG; Start 04/10/18 at 09:00 Lansoprazole (Prevacid) 30 mg BID@0600,1800 PO Last administered on 05/16/18 05:46; Admin Dose 30 MG; Start 04/14/18 at 18:00 Multivitamins (Multivitamin) 30 ml DAILY NGT Last administered on 05/16/18 09:45; Admin Dose 30 ML; Start 04/16/18 at 16:30 Morphine Sulfate (morphine) 6 mg Q4H PRN NGT SEVERE PAIN LEVEL 7-10; Start 04/30/18 at 21:30 Tamsulosin HCl (Flomax) 0.4 mg BID PO Last administered on 05/16/18 09:45; Adm in Dose 0.4 MG; Start 05/12/18 at 21:00 Polyethylene Glycol (Miralax) 17 gm DAILY GTB Last administered on 05/16/18 09:44; Admin Dose 17 GM; Start 05/14/18 at 09:00 Bethanechol Chloride (Urecholine) 25 mg TID PO Last administered on 05/16/18 09:45; Admin Dose 25 MG; Start 05/14/18 at 21:00 MICHAEL ARZATE May 16, 2018 10:51
--- NOTE | 2018-05-16 11:27 | CONS ---
Assessment/Plan Assessment/Plan Hospital Course (Demo Recall) No acute events over night, looks comfortable, no fevers, tolerates tube feeding Indwelling: PEG Physical examination: Well-developed chronically ill-appearing wasted elderly man who is in no distress. Head atraumatic normocephalic sclera nonicteric. Neck is supple chest rise symmetrical breath sounds diminished bases. Heart: S1-S2 abdomen distended tender on palpation extremities without cyanosis Assessment: 1. Status post recurrent UTI, Honeycutt was discontinued 2. Status post GI bleeding===> underwent EGD with Hemoclip placement 3. Urinary retention==> on Flomax 4. History MRSA nares colonization 5. Dysphagia 6. Dementia Plan: Stable off abx, continue present care, aspiration precautions, pending dc to SNF Consultation Date/Type/Reason Admit Date/Time Mar 27, 2018 at 20:08 Initial Consult Date 04/02/18 Type of Consult ID Requesting Provider: DEENA BASILIO Date/Time of Note DATE: 05/16/18 TIME: 11:26 Exam/Review of Systems Exam Vitals Vital Signs Date Temp Pulse Resp B/P (MAP) Pulse Ox O2 O2 Flow FiO2 Time Delivery Rate 05/16/18 97.8 78 18 116/59 97 08:52 (78) 05/15/18 Room Air 14:19 Intake and Output 05/15/18 05/15/18 05/16/18 1414:59 22:59 06:59 IntakeIntake Total 1260 ml 700 ml OutputOutput Total 850 ml BalanceBalance 1260 ml -150 ml Results Result Diagram: 05/12/18 0437 05/14/18 0524 Medications Medication Current Medications Ascorbic Acid (Vitamin C) 500 mg DAILY NGT Last administered on 05/16/18at 09:45; Admin Dose 500 MG; Start 04/09/18 at 14:00 Zinc Sulfate (Zinc Sulfate) 220 mg DAILY NGT Last administered on 05/16/18at 09:45; Admin Dose 220 MG; Start 04/10/18 at 09:00 Lansoprazole (Prevacid) 30 mg BID@0600,1800 PO Last administered on 05/16/18at 05:46; Admin Dose 30 MG; Start 04/14/18 at 18:00 Multivitamins (Multivitamin) 30 ml DAILY NGT Last administered on 05/16/18at 09:45; Admin Dose 30 ML; Start 04/16/18 at 16:30 Morphine Sulfate (morphine) 6 mg Q4H PRN NGT SEVERE PAIN LEVEL 7-10; Start 04/30/18 at 21:30 Tamsulosin HCl (Flomax) 0.4 mg BID PO Last administered on 05/16/18 09:45; Admin Dose 0.4 MG; Start 05/12/18 at 21:00 Polyethylene Glycol (Miralax) 17 gm DAILY GTB Last administered on 05/16/18 09:44; Admin Dose 17 GM; Start 05/14/18 at 09:00 Bethanechol Chloride (Urecholine) 25 mg TID PO Last administered on 05/16/18 09:45; Admin Dose 25 MG; Start 05/14/18 at 21:00 DAVONTE MCMAHAN NP May 16, 2018 11:27
--- NOTE | 2018-05-16 11:54 | CONS ---
Assessment/Plan Assessment/Plan Assessment/Plan (Daily) Assessment/Plan (Daily) 88 yo male presented with urosepsis and respiratory failure and coffee ground emesis 1. Upper GI bleed manifested through coffee ground emesis and melena -s/p EGD -resolved 2. Gastric ulcers, etiology of bleed -resolved 3. Hiatal hernia 4. Anemia secondary to gastric ulcer bleeding -stable but slowly trending down, no active GI bleeding noted, FOB neg 04/16 -monitor closely -stable 5. UTI -VRE in urine cx 05/05 -resolved 6. Dysphagia -g tube placed 7. Malnutrition. -g tube 8. Liver cirrhosis, with positive smooth muscle titer and smooth muscle ab interp POS 9. S/P EGD 05/06 in which PEG was not able to be placed 10. Mild gastritis 11. Hiatal hernia 12. Urinary retention -flomax, bladder scans and straight caths Gastric ulcer biopsy: -- Body mucosa showing focal dilation of gastric glands and a few scattered plasma cells in the superficial lamina propria. -- The features are suggestive of an early fundic gland polyp. -- No erosion or ulceration is identified. -- No Helicobacter organisms are seen in a Giemsa stain (positive control concurrently reviewed). -- There is no evidence of malignancy. Plan: Miralax 17 gm qd Continue with tube feeds, monitor residuals Aspiration precautions Monitor HH Residual was only 40 mL Consultation Date/Type/Reason Admit Date/Time Mar 27, 2018 at 20:08 Initial Consult Date 04/02/18 Requesting Provider: DEENA BASILIO Date/Time of Note DATE: 05/16/18 TIME: 11:54 24 HR Interval Summary Constitutional: improved Exam/Review of Systems Exam Vitals Vital Signs Date Temp Pulse Resp B/P (MAP) Pulse Ox O2 O2 Flow FiO2 Time Delivery Rate 05/16/18 97.8 78 18 116/59 97 08:52 (78) 05/15/18 Room Air 14:19 Intake and Output 05/15/18 05/15/18 05/16/18 1515:00 23:00 07:00 IntakeIntake Total 1260 ml 700 ml OutputOutput Total 850 ml BalanceBalance 1260 ml -150 ml Constitutional: alert, oriented, well developed Psych: no complaints, nl mood/affect Head: normocephalic, atraumatic Eyes: nl conjunctiva, EOMI, nl lids, nl sclera, PERRL ENMT: nl external ears & nose, nl lips & teeth, nl nasal mucosa & septum Neck: supple, non-tender Respiratory: clear to auscultation, normal air movement Cardiovascular: regular rate and rhythm, nl pulses Gastrointestinal: soft, nl liver, spleen, non-tender Musculoskeletal: nl extremities to inspection, nl gait and stance Extremities: normal pulses 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, nl mental status, nl speech, nl strength Skin: nl turgor; No rash or lesions Lymph: nl lymph nodes Results Result Diagram: 05/12/18 0437 05/14/18 0524 Medications Medication Current Medications Ascorbic Acid (Vitamin C) 500 mg DAILY NGT Last administered on 05/16/18 09:45; Admin Dose 500 MG; Start 04/09/18 at 14:00 Zinc Sulfate (Zinc Sulfate) 220 mg DAILY NGT Last administered on 05/16/18 09:45; Admin Dose 220 MG; Start 04/10/18 at 09:00 Lansoprazole (Prevacid) 30 mg BID@0600,1800 PO Last administered on 05/16/18 05:46; Admin Dose 30 MG; Start 04/14/18 at 18:00 Multivitamins (Multivitamin) 30 ml DAILY NGT Last administered on 05/16/18 0 9:45; Admin Dose 30 ML; Start 04/16/18 at 16:30 Morphine Sulfate (morphine) 6 mg Q4H PRN NGT SEVERE PAIN LEVEL 7-10; Start 04/30/18 at 21:30 Tamsulosin HCl (Flomax) 0.4 mg BID PO Last administered on 05/16/18 09:45; Admin Dose 0.4 MG; Start 05/12/18 at 21:00 Polyethylene Glycol (Miralax) 17 gm DAILY GTB Last administered on 05/16/18 09:44; Admin Dose 17 GM; Start 05/14/18 at 09:00 Bethanechol Chloride (Urecholine) 25 mg TID PO Last administered on 05/16/18 09:45; Admin Dose 25 MG; Start 05/14/18 at 21:00 ATTILA UMANZOR MD May 16, 2018 11:54
[2018-05-16 15:23] VITALS: BP 118/57; PULSE 75; RESP 18
--- NOTE | 2018-05-16 16:08 | CONS ---
Assessment/Plan Assessment/Plan Assessment/Plan (Daily) 1. Acute kidney injury on CKD due to ATN + prerenal azotemia 2. acute blood loss anemia- 3. acute hyperkalemia- now resolved 4. acute hypoxemic respiratory failure 5. Sepsis due to acute UTI 6. Severe metabolic acidosis due to FLORES 7. Hypernatremia - resolved 8. Upper GI bleeding 9. H/o BPH on Flomax Plan: BUN/Cr 31/0.89 Na improved to normal 138 WBC still high 12.7 , monitor electrolytes and replace as needed Renal US showed No evidence of hydronephrosis or mass, Nonobstructing intrarenal calculi are seen in the mid right kidney measuring 4 mm in 7 mm. 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.8 x 6.7 x 8.3 cm Flomax 0,4 mg PO BID - pt iis still having urinary retention, he has been getting bladder scan with straight in and out cath SNF placement in progress will follow up Consultation Date/Type/Reason Admit Date/Time Mar 27, 2018 at 20:08 Initial Consult Date 03/31/18 Type of Consult NEPHROLOGY Requesting Provider: DEENA BASILIO Date/Time of Note DATE: 05/16/18 TIME: 16:08 Exam/Review of Systems Exam Vitals Vital Signs Date Temp Pulse Resp B/P (MAP) Pulse Ox O2 O2 Flow FiO2 Time Delivery Rate 05/16/18 97.5 75 18 118/57 96 15:23 (77) 05/15/18 Room Air 14:19 Intake and Output 05/15/18 05/15/18 05/16/18 1515:00 23:00 07:00 IntakeIntake Total 1260 ml 700 ml OutputOutput Total 800 ml 850 ml BalanceBalance -800 ml 1260 ml -150 ml Exam Constitutional: alert Neck: supple, non-tender Respiratory: clear to auscultation, normal air movement, diminished breath sounds Cardiovascular: regular rate and rhythm, nl pulses Gastrointestinal: soft, non-tender Musculoskeletal: nl extremities to inspection Results Result Diagram: 05/12/18 0437 05/14/18 0524 Medications Medication Current Medications Ascorbic Acid (Vitamin C) 500 mg DAILY NGT Last administered on 05/16/18at 09:45; Admin Dose 500 MG; Start 04/09/18 at 14:00 Zinc Sulfate (Zinc Sulfate) 220 mg DAILY NGT Last administered on 05/16/18 09:45; Admin Dose 220 MG; Start 04/10/18 at 09:00 Lansoprazole (Prevacid) 30 mg BID@0600,1800 PO Last administered on 05/16/18 05:46; Admin Dose 30 MG; Start 04/14/18 at 18:00 Multivitamins (Multivitamin) 30 ml DAILY NGT Last administered on 05/16/18 09:45; Admin Dose 30 ML; Start 04/16/18 at 16:30 Morphine Sulfate (morphine) 6 mg Q4H PRN NGT SEVERE PAIN LEVEL 7-10; Start 04/30/18 at 21:30 Tamsulosin HCl (Flomax) 0.4 mg BID PO Last administered on 05/16/18 09:45; Admin Dose 0.4 MG; Start 05/12/18 at 21:00 Polyethylene Glycol (Miralax) 17 gm DAILY GTB Last administered on 05/16/18 09:44; Admin Dose 17 GM; Start 05/14/18 at 09:00 Bethanechol Chloride (Urecholine) 25 mg TID PO Last administered on 05/16/18 13:08; Admin Dose 25 MG; Start 05/14/18 at 21:00 STEVEN BLANCO MD May 16, 2018 16:08
[2018-05-16 19:53] VITALS: BP 133/63; PULSE 82; RESP 16
[2018-05-17 01:28] VITALS: BP 111/53; PULSE 76; RESP 16
[2018-05-17] MEDS: LANSOPRAZOLE 30 MG CAP PO SCH ×2 (06:20→18:20)
[2018-05-17 07:29] VITALS: BP 129/62; PULSE 77; RESP 16
[2018-05-17] MEDS: ZINC SULFATE 220 MG CAP NGT SCH (08:50)
[2018-05-17] MEDS: TAMSULOSIN (SR) 0.4 MG CAP PO SCH ×2 (08:50→21:31)
[2018-05-17] MEDS: ASCORBIC ACID 500 MG TAB NGT SCH (08:50)
[2018-05-17] MEDS: POLYETHYLENE GLYCOL 17 GM PACKET GTB SCH (08:50)
[2018-05-17] MEDS: MULTIVITAMINS 30 ML CUP NGT SCH (08:50)
[2018-05-17] MEDS: BETHANECHOL 25 MG TAB PO SCH ×3 (08:50→21:31)
[2018-05-17 13:38] VITALS: BP 141/63; PULSE 82; RESP 18
--- NOTE | 2018-05-17 14:05 | PN ---
Date/Time of Note Date/Time of Note DATE: 05/17/18 TIME: 14:05 Assessment/Plan VTE Prophylaxis Risk score (from Ns)>0 risk: 7 SCD applied (from Ns): Yes Pharmacological prophylaxis: other Lines/Catheters IV Catheter Type (from Nrs): Saline Lock Urinary Cath still in place: Yes Reason Cath still needed: urinary retention Assessment/Plan Assessment/Plan -Hyperkalemia, resolved -VRE urinary tract infection, completed treatment with Zyvox. -Possible aspiration pneumonia, continue antibiotics per ID. -Anemia secondary to GI bleed. Dr. Gomes is following in GI consultation. Transfuse as needed, monitor hemoglobin and hematocrit. -Bleeding gastric ulcers, s/p hemostasis with placement of hemoclip during EGD by Dr Guallpa on 04/03/18. Continue Protonix. -S/p septic shock secondary to urinary tract infection, continue antibiotics per ID. Dr. Guzman is following in infection disease consultation. -Hypoxemic respiratory failure, resolving. Dr. Nam is following in pulmonology consultation. -Acute kidney injury, resolved. Dr. Senior following in nephrology consultation. -Hypernatremia, resolved. 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 -Protein calorie malnutrition -S/P EGD 05/06 in which PEG was not able to be placed, s/p G-tube placement by radiology -No family, patient is appropriate for PEG placement and DNR status as per decision of the bioethics committee -Urinary retention, continue Honeycutt catheter Further recommendations based on clinical course. Plan of care discussed with Result Diagram: 05/17/18 0541 05/17/18 0541 Results 24hrs Laboratory Tests Test 05/17/18 05:41 White Blood Count 13.1 H Red Blood Count 2.97 L Hemoglobin 8.4 L Hematocrit 27.3 L Mean Corpuscular Volume 91.9 Mean Corpuscular Hemoglobin 28.3 L Mean Corpuscular Hemoglobin Concent 30.8 L Red Cell Distribution Width 16.3 H Platelet Count 288 Mean Platelet Volume 11.3 H Immature Granulocytes % 1.500 H Neutrophils % 69.4 Lymphocytes % 13.8 L Monocytes % 8.1 Eosinophils % 6.6 Basophils % 0.6 Nucleated Red Blood Cells % 0.0 Immature Granulocytes # 0.190 H Neutrophils # 9.1 H Lymphocytes # 1.8 Monocytes # 1.1 H Eosinophils # 0.9 H Basophils # 0.1 Nucleated Red Blood Cells # 0.0 Sodium Level 139 Potassium Level 4.6 Chloride Level 104 Carbon Dioxide Level 33 H Anion Gap 2 L Blood Urea Nitrogen 24 H Creatinine 0.80 Est Glomerular Filtrat Rate mL/min Glucose Level 110 Calcium Level 9.0 Subjective 24 Hr Interval Summary Subjective hx not possible: pt non-verbal Constitutional: requiring IVF Exam/Review of Systems Exam Vitals Vital Signs Date Temp Pulse Resp B/P (MAP) Pulse Ox O2 O2 Flow FiO2 Time Delivery Rate 05/17/18 98.5 82 18 141/63 90 13:38 (89) 05/15/18 Room Air 14:19 Intake and Output 05/16/18 05/16/18 05/17/18 1414:59 22:59 06:59 IntakeIntake Total 1140 ml 1140 ml OutputOutput Total 1200 ml 1400 ml BalanceBalance -60 ml -260 ml Constitutional: well developed Psych: nl mood/affect Head: normocephalic Eyes: nl lids, nl sclera ENMT: nl external ears & nose Neck: non-tender Respiratory: clear to auscultation Cardiovascular: nl pulses, other (s1s2) Gastrointestinal: soft Musculoskeletal: muscle weakness Extremities: normal pulses Neurological: confused Results Results 24hrs Laboratory Tests Test 05/17/18 05:41 White Blood Count 13.1 H Red Blood Count 2.97 L Hemoglobin 8.4 L Hematocrit 27.3 L Mean Corpuscular Volume 91.9 Mean Corpuscular Hemoglobin 28.3 L Mean Corpuscular Hemoglobin Concent 30.8 L Red Cell Distribution Width 16.3 H Platelet Count 288 Mean Platelet Volume 11.3 H Immature Granulocytes % 1.500 H Neutrophils % 69.4 Lymphocytes % 13.8 L Monocytes % 8.1 Eosinophils % 6.6 Basophils % 0.6 Nucleated Red Blood Cells % 0.0 Immature Granulocytes # 0.190 H Neutrophils # 9.1 H Lymphocytes # 1.8 Monocytes # 1.1 H Eosinophils # 0.9 H Basophils # 0.1 Nucleated Red Blood Cells # 0.0 Sodium Level 139 Potassium Level 4.6 Chloride Level 104 Carbon Dioxide Level 33 H Anion Gap 2 L Blood Urea Nitrogen 24 H Creatinine 0.80 Est Glomerular Filtrat Rate mL/min Glucose Level 110 Calcium Level 9.0 Medications Medication Current Medications Ascorbic Acid (Vitamin C) 500 mg DAILY NGT Last administered on 05/17/18 08 :50; Admin Dose 500 MG; Start 04/09/18 at 14:00 Zinc Sulfate (Zinc Sulfate) 220 mg DAILY NGT Last administered on 05/17/18 08:50; Admin Dose 220 MG; Start 04/10/18 at 09:00 Lansoprazole (Prevacid) 30 mg BID@0600,1800 PO Last administered on 05/17/18 06:20; Admin Dose 30 MG; Start 04/14/18 at 18:00 Multivitamins (Multivitamin) 30 ml DAILY NGT Last administered on 05/17/18 08:50; Admin Dose 30 ML; Start 04/16/18 at 16:30 Morphine Sulfate (morphine) 6 mg Q4H PRN NGT SEVERE PAIN LEVEL 7-10; Start 04/30/18 at 21:30 Tamsulosin HCl (Flomax) 0.4 mg BID PO Last administered on 05/17/18 08:50; A dmin Dose 0.4 MG; Start 05/12/18 at 21:00 Polyethylene Glycol (Miralax) 17 gm DAILY GTB Last administered on 05/17/18 08:50; Admin Dose 17 GM; Start 05/14/18 at 09:00 Bethanechol Chloride (Urecholine) 25 mg TID PO Last administered on 05/17/18 08:50; Admin Dose 25 MG; Start 05/14/18 at 21:00 MICHAEL ARZATE May 17, 2018 14:05
--- NOTE | 2018-05-17 14:23 | CONS ---
Assessment/Plan Assessment/Plan Assessment/Plan (Daily) Assessment/Plan (Daily) 88 yo male presented with urosepsis and respiratory failure and coffee ground emesis 1. Upper GI bleed manifested through coffee ground emesis and melena -s/p EGD -resolved 2. Gastric ulcers, etiology of bleed -resolved 3. Hiatal hernia 4. Anemia secondary to gastric ulcer bleeding -stable but slowly trending down, no active GI bleeding noted, FOB neg 04/16 -monitor closely -stable 5. UTI -VRE in urine cx 05/05 -resolved 6. Dysphagia -g tube placed 7. Malnutrition. -g tube 8. Liver cirrhosis, with positive smooth muscle titer and smooth muscle ab interp POS 9. S/P EGD 05/06 in which PEG was not able to be placed 10. Mild gastritis 11. Hiatal hernia 12. Urinary retention -flomax, bladder scans and straight caths Gastric ulcer biopsy: -- Body mucosa showing focal dilation of gastric glands and a few scattered plasma cells in the superficial lamina propria. -- The features are suggestive of an early fundic gland polyp. -- No erosion or ulceration is identified. -- No Helicobacter organisms are seen in a Giemsa stain (positive control concurrently reviewed). -- There is no evidence of malignancy. Plan: Miralax 17 gm qd Continue with tube feeds, monitor residuals Aspiration precautions Monitor HH Residual was only 40 mL No evidence of any GI bleeding Consultation Date/Type/Reason Admit Date/Time Mar 27, 2018 at 20:08 Initial Consult Date 04/02/18 Requesting Provider: DEENA BASILIO Date/Time of Note DATE: 05/17/18 TIME: 14:23 24 HR Interval Summary Constitutional: no complaints, improved Exam/Review of Systems Exam Vitals Vital Signs Date Temp Pulse Resp B/P (MAP) Pulse Ox O2 O2 Flow FiO2 Time Delivery Rate 05/17/18 98.5 82 18 141/63 90 13:38 (89) 05/15/18 Room Air 14:19 Intake and Output 05/16/18 05/16/18 05/17/18 1515:00 23:00 07:00 IntakeIntake Total 1140 ml 1140 ml OutputOutput Total 1200 ml 1400 ml BalanceBalance -60 ml -260 ml Constitutional: alert, oriented, well developed Psych: no complaints, nl mood/affect Head: normocephalic, atraumatic Eyes: nl conjunctiva, EOMI, nl lids, nl sclera, PERRL ENMT: nl external ears & nose, nl lips & teeth, nl nasal mucosa & septum Neck: supple, non-tender Respiratory: clear to auscultation, normal air movement Cardiovascular: regular rate and rhythm, nl pulses Gastrointestinal: soft, nl liver, spleen, non-tender Musculoskeletal: nl extremities to inspection, nl gait and stance Extremities: normal pulses 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, nl mental status, nl speech, nl strength Skin: nl turgor; No rash or lesions Lymph: nl lymph nodes Results Result Diagram: 05/17/18 0541 05/17/18 0541 Results 24hrs Laboratory Tests Test 05/17/18 05:41 White Blood Count 13.1 H Red Blood Count 2.97 L Hemoglobin 8.4 L Hematocrit 27.3 L Mean Corpuscular Volume 91.9 Mean Corpuscular Hemoglobin 28.3 L Mean Corpuscular Hemoglobin Concent 30.8 L Red Cell Distribution Width 16.3 H Platelet Count 288 Mean Platelet Volume 11.3 H Immature Granulocytes % 1.500 H Neutrophils % 69.4 Lymphocytes % 13.8 L Monocytes % 8.1 Eosinophils % 6.6 Basophils % 0.6 Nucleated Red Blood Cells % 0.0 Immature Granulocytes # 0.190 H Neutrophils # 9.1 H Lymphocytes # 1.8 Monocytes # 1.1 H Eosinophils # 0.9 H Basophils # 0.1 Nucleated Red Blood Cells # 0.0 Sodium Level 139 Potassium Level 4.6 Chloride Level 104 Carbon Dioxide Level 33 H Anion Gap 2 L Blood Urea Nitrogen 24 H Creatinine 0.80 Est Glomerular Filtrat Rate mL/min Glucose Level 110 Calcium Level 9.0 Medications Medication Current Medications Ascorbic Acid (Vitamin C) 500 mg DAILY NGT Last administered on 05/17/18at 08:50; Admin Dose 500 MG; Start 04/09/18 at 14:00 Zinc Sulfate (Zinc Sulfate) 220 mg DAILY NGT Last administered on 05/17/18at 08:50; Admin Dose 220 MG; Start 04/10/18 at 09:00 Lansoprazole (Prevacid) 30 mg BID@0600,1800 PO Last administered on 05/17/18at 06:20; Admin Dose 30 MG; Start 04/14/18 at 18:00 Multivitamins (Multivitamin) 30 ml DAILY NGT Last administered on 05/17/18 08:50; Admin Dose 30 ML; Start 04/16/18 at 16:30 Morphine Sulfate (morphine) 6 mg Q4H PRN NGT SEVERE PAIN LEVEL 7-10; Start 04/30/18 at 21:30 Tamsulosin HCl (Flomax) 0.4 mg BID PO Last administered on 05/17/18 08:50; Admin Dose 0.4 MG; Start 05/12/18 at 21:00 Polyethylene Glycol (Miralax) 17 gm DAILY GTB Last administered on 05/17/18 08:50; Admin Dose 17 GM; Start 05/14/18 at 09:00 Bethanechol Chloride (Urecholine) 25 mg TID PO Last administered on 05/17/18 08:50; Admin Dose 25 MG; Start 05/14/18 at 21:00 ATTILA UMANZOR MD May 17, 2018 14:23
--- NOTE | 2018-05-17 16:26 | CONS ---
Assessment/Plan Assessment/Plan Assessment/Plan (Daily) 1. Acute kidney injury on CKD due to ATN + prerenal azotemia 2. acute blood loss anemia- 3. acute hyperkalemia- now resolved 4. acute hypoxemic respiratory failure 5. Sepsis due to acute UTI 6. Severe metabolic acidosis due to FLORES 7. Hypernatremia - resolved 8. Upper GI bleeding 9. H/o BPH on Flomax Plan: BUN/Cr 24/0.8 other electrolyte stable, WBC 13.1 Renal US showed No evidence of hydronephrosis or mass, Nonobstructing intrarenal calculi are seen in the mid right kidney measuring 4 mm in 7 mm. 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.8 x 6.7 x 8.3 cm Flomax 0,4 mg PO BID - pt iis still having urinary retention, he has been getting bladder scan with straight in and out cath SNF placement in progress will follow up Consultation Date/Type/Reason Admit Date/Time Mar 27, 2018 at 20:08 Initial Consult Date 03/31/18 Type of Consult NEPHROLOGY Requesting Provider: DEENA BASILIO Date/Time of Note DATE: 05/17/18 TIME: 16:25 Exam/Review of Systems Exam Vitals Vital Signs Date Temp Pulse Resp B/P (MAP) Pulse Ox O2 O2 Flow FiO2 Time Delivery Rate 05/17/18 98.5 82 18 141/63 90 13:38 (89) 05/15/18 Room Air 14:19 Intake and Output 05/16/18 05/16/18 05/17/18 1515:00 23:00 07:00 IntakeIntake Total 1140 ml 1140 ml OutputOutput Total 1200 ml 1400 ml BalanceBalance -60 ml -260 ml Results Result Diagram: 05/17/18 0541 05/17/18 0541 Results 24hrs Laboratory Tests Test 05/17/18 05:41 White Blood Count 13.1 H Red Blood Count 2.97 L Hemoglobin 8.4 L Hematocrit 27.3 L Mean Corpuscular Volume 91.9 Mean Corpuscular Hemoglobin 28.3 L Mean Corpuscular Hemoglobin Concent 30.8 L Red Cell Distribution Width 16.3 H Platelet Count 288 Mean Platelet Volume 11.3 H Immature Granulocytes % 1.500 H Neutrophils % 69.4 Lymphocytes % 13.8 L Monocytes % 8.1 Eosinophils % 6.6 Basophils % 0.6 Nucleated Red Blood Cells % 0.0 Immature Granulocytes # 0.190 H Neutrophils # 9.1 H Lymphocytes # 1.8 Monocytes # 1.1 H Eosinophils # 0.9 H Basophils # 0.1 Nucleated Red Blood Cells # 0.0 Sodium Level 139 Potassium Level 4.6 Chloride Level 104 Carbon Dioxide Level 33 H Anion Gap 2 L Blood Urea Nitrogen 24 H Creatinine 0.80 Est Glomerular Filtrat Rate mL/min Glucose Level 110 Calcium Level 9.0 Medications Medication Current Medications Ascorbic Acid (Vitamin C) 500 mg DAILY NGT Last administered on 05/17/18 08: 50; Admin Dose 500 MG; Start 04/09/18 at 14:00 Zinc Sulfate (Zinc Sulfate) 220 mg DAILY NGT Last administered on 05/17/18 08:50; Admin Dose 220 MG; Start 04/10/18 at 09:00 Lansoprazole (Prevacid) 30 mg BID@0600,1800 PO Last administered on 05/17/18 06:20; Admin Dose 30 MG; Start 04/14/18 at 18:00 Multivitamins (Multivitamin) 30 ml DAILY NGT Last administered on 05/17/18 08:50; Admin Dose 30 ML; Start 04/16/18 at 16:30 Morphine Sulfate (morphine) 6 mg Q4H PRN NGT SEVERE PAIN LEVEL 7-10; Start 04/30/18 at 21:30 Tamsulosin HCl (Flomax) 0.4 mg BID PO Last administered on 05/17/18 08:50; Ad min Dose 0.4 MG; Start 05/12/18 at 21:00 Polyethylene Glycol (Miralax) 17 gm DAILY GTB Last administered on 05/17/18 08:50; Admin Dose 17 GM; Start 05/14/18 at 09:00 Bethanechol Chloride (Urecholine) 25 mg TID PO Last administered on 05/17/18 14:53; Admin Dose 25 MG; Start 05/14/18 at 21:00 STEVEN BLANCO MD May 17, 2018 16:26
[2018-05-17 19:59] VITALS: BP 137/62; PULSE 84; RESP 18
[2018-05-18 02:00] VITALS: BP 110/60; PULSE 72; RESP 18
[2018-05-18] MEDS: LANSOPRAZOLE 30 MG CAP PO SCH ×2 (06:11→18:11)
--- NOTE | 2018-05-18 07:36 | CONS ---
Assessment/Plan Assessment/Plan Assessment/Plan (Daily) 1. Acute kidney injury on CKD due to ATN + prerenal azotemia 2. acute blood loss anemia- 3. acute hyperkalemia- now resolved 4. acute hypoxemic respiratory failure 5. Sepsis due to acute UTI 6. Severe metabolic acidosis due to FLORES 7. Hypernatremia - resolved 8. Upper GI bleeding 9. H/o BPH on Flomax Plan: BUN/Cr 24/0.8 , WBC still high 13.1, monitor electrolytes and replace as needed Renal US showed No evidence of hydronephrosis or mass, Nonobstructing intrarenal calculi are seen in the mid right kidney measuring 4 mm in 7 mm. 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.8 x 6.7 x 8.3 cm Flomax 0,4 mg PO BID - pt iis still having urinary retention, he has been gett ing bladder scan with straight in and out cath SNF placement in progress will follow up Consultation Date/Type/Reason Admit Date/Time Mar 27, 2018 at 20:08 Initial Consult Date 03/31/18 Type of Consult NEPHROLOGY Requesting Provider: DEENA BASILIO Date/Time of Note DATE: 05/18/18 TIME: 07:36 Exam/Review of Systems Exam Vitals Vital Signs Date Temp Pulse Resp B/P (MAP) Pulse Ox O2 O2 Flow FiO2 Time Delivery Rate 05/18/18 98.5 72 18 110/60 100 02:00 (77) 05/15/18 Room Air 14:19 Intake and Output 05/17/18 05/17/18 05/18/18 1414:59 22:59 06:59 IntakeIntake Total 10 ml 1230 ml OutputOutput Total 800 ml BalanceBalance 10 ml 430 ml Exam Constitutional: alert Neck: supple, non-tender Respiratory: clear to auscultation, normal air movement, diminished breath sounds Cardiovascular: regular rate and rhythm, nl pulses Gastrointestinal: soft, non-tender Musculoskeletal: nl extremities to inspection Results Result Diagram: 05/17/18 0541 05/17/18540 Medications Medication Current Medications Ascorbic Acid (Vitamin C) 500 mg DAILY NGT Last administered on 05/17/18at 08:50; Admin Dose 500 MG; Start 04/09/18 at 14:00 Zinc Sulfate (Zinc Sulfate) 220 mg DAILY NGT Last administered on 05/17/18at 08:50; Admin Dose 220 MG; Start 04/10/18 at 09:00 Lansoprazole (Prevacid) 30 mg BID@0600,1800 PO Last administered on 05/18/18 06:11; Admin Dose 30 MG; Start 04/14/18 at 18:00 Multivitamins (Multivitamin) 30 ml DAILY NGT Last administered on 05/17/18 08:50; Admin Dose 30 ML; Start 04/16/18 at 16:30 Morphine Sulfate (morphine) 6 mg Q4H PRN NGT SEVERE PAIN LEVEL 7-10; Start 04/30/18 at 21:30 Tamsulosin HCl (Flomax) 0.4 mg BID PO Last administered on 05/17/18 21:31; Admin Dose 0.4 MG; Start 05/12/18 at 21:00 Polyethylene Glycol (Miralax) 17 gm DAILY GTB Last administered on 05/17/18 08:50; Admin Dose 17 GM; Start 05/14/18 at 09:00 Bethanechol Chloride (Urecholine) 25 mg TID PO Last administered on 05/17/18 21:31; Admin Dose 25 MG; Start 05/14/18 at 21:00 STEVEN BLANCO MD May 18, 2018 07:36
[2018-05-18 07:45] VITALS: BP 117/58; PULSE 77; RESP 20
[2018-05-18] MEDS: ASCORBIC ACID 500 MG TAB NGT SCH (09:18)
[2018-05-18] MEDS: BETHANECHOL 25 MG TAB PO SCH ×3 (09:18→20:23)
[2018-05-18] MEDS: ZINC SULFATE 220 MG CAP NGT SCH (09:18)
[2018-05-18] MEDS: POLYETHYLENE GLYCOL 17 GM PACKET GTB SCH (09:18)
[2018-05-18] MEDS: TAMSULOSIN (SR) 0.4 MG CAP PO SCH ×2 (09:18→20:23)
[2018-05-18] MEDS: MULTIVITAMINS 30 ML CUP NGT SCH (09:18)
--- NOTE | 2018-05-18 14:51 | PN ---
Date/Time of Note Date/Time of Note DATE: 05/18/18 TIME: 14:50 Assessment/Plan VTE Prophylaxis Risk score (from Ns)>0 risk: 6 [place] [facility] [place] SCD contraindicated: other Pharmacological prophylaxis: other Pharm contraindication: other Lines/Catheters [facility]from [facility] Saline Lock Urinary Cath still in place: Yes Reason Cath still needed: urinary retention Assessment/Plan Assessment/Plan -VRE urinary tract infection, completed treatment with Zyvox. -Possible aspiration pneumonia, continue antibiotics per ID. -Anemia secondary to GI bleed. Dr. Gomes is following in GI consultation. Transfuse as needed, monitor hemoglobin and hematocrit. -Bleeding gastric ulcers, s/p hemostasis with placement of hemoclip during EGD by Dr Guallpa on 04/03/18. Continue Protonix. -S/p septic shock secondary to urinary tract infection, continue antibiotics per ID. Dr. Guzman is following in infection disease consultation. -Hypoxemic respiratory failure, resolving. Dr. Nam is following in pulmonology consultation. -Acute kidney injury, resolved. Dr. Senior following in nephrology consultation. -Hypernatremia, resolved. 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 -Protein calorie malnutrition -S/P EGD 05/06 in which PEG was not able to be placed, s/p G-tube placement by radiology -No family, patient is appropriate for PEG placement and DNR status as per decision of the bioethics committee -Urinary retention, continue Honeycutt catheter Further recommendations based on clinical course. Plan of care discussed with Result Diagram: 05/17/18 0541 05/17/18 0541 Exam/Review of Systems Exam Vitals Vital Signs Date Temp Pulse Resp B/P (MAP) Pulse Ox O2 O2 Flow FiO2 Time Delivery Rate 05/18/18 97.7 77 20 117/58 97 07:45 (77) 05/15/18 Room Air 14:19 Intake and Output 05/17/18 05/17/18 05/18/18 1515:00 23:00 07:00 IntakeIntake Total 10 ml 1230 ml OutputOutput Total 800 ml BalanceBalance 10 ml 430 ml Constitutional: well developed Psych: nl mood/affect Head: normocephalic Eyes: nl lids, nl sclera ENMT: nl external ears & nose Neck: supple Respiratory: diminished breath sounds Musculoskeletal: muscle weakness Extremities: normal pulses Neurological: confused Medications Medication Current Medications Ascorbic Acid (Vitamin C) 500 mg DAILY NGT Last administered on 05/18/18 09:18; Admin Dose 500 MG; Start 04/09/18 at 14:00 Zinc Sulfate (Zinc Sulfate) 220 mg DAILY NGT Last administered on 05/18/18 09:18; Admin Dose 220 MG; Start 04/10/18 at 09:00 Lansoprazole (Prevacid) 30 mg BID@0600,1800 PO Last administered on 05/18/18 06:11; Admin Dose 30 MG; Start 04/14/18 at 18:00 Multivitamins (Multivitamin) 30 ml DAILY NGT Last administered on 05/18/18 09:18; Admin Dose 30 ML; Start 04/16/18 at 16:30 Morphine Sulfate (morphine) 6 mg Q4H PRN NGT SEVERE PAIN LEVEL 7-10; Start 04/30/18 at 21:30 Tamsulosin HCl (Flomax) 0.4 mg BID PO Last administered on 05/18/18 09:18; Admin Dose 0.4 MG; Start 05/12/18 at 21:00 Polyethylene Glycol (Miralax) 17 gm DAILY GTB Last administered on 05/18/18 09:18; Admin Dose 17 GM; Start 05/14/18 at 09:00 Bethanechol Chloride (Urecholine) 25 mg TID PO Last administered on 05/18/18 12:27; Admin Dose 25 MG; Start 05/14/18 at 21:00 MICHAEL ARZATE May 18, 2018 14:51
[2018-05-18 15:03] VITALS: BP 116/60; PULSE 88; RESP 16
[2018-05-18 15:08] VITALS: BP 118/58; PULSE 66; RESP 16
[2018-05-18 19:39] VITALS: BP 110/60; PULSE 84; RESP 18
[2018-05-19 02:00] VITALS: BP 108/62; PULSE 77; RESP 18
[2018-05-19] MEDS: LANSOPRAZOLE 30 MG CAP PO SCH ×2 (05:27→18:12)
[2018-05-19 07:15] VITALS: BP 109/53; PULSE 80; RESP 18
--- NOTE | 2018-05-19 08:03 | CONS ---
Assessment/Plan Assessment/Plan Hospital Course (Demo Recall) 88 yo male presented with urosepsis and respiratory failure and coffee ground emesis 1. Upper GI bleed manifested through coffee ground emesis and melena -s/p EGD -resolved 2. Gastric ulcers, etiology of bleed -resolved 3. Hiatal hernia 4. Anemia secondary to gastric ulcer bleeding -stable but slowly trending down, no active GI bleeding noted, FOB neg 04/16 -monitor closely -stable 5. UTI -VRE in urine cx 05/05 -resolved 6. Dysphagia -g tube placed 7. Malnutrition. -g tube 8. Liver cirrhosis, with positive smooth muscle titer and smooth muscle ab interp POS 9. S/P EGD 05/06 in which PEG was not able to be placed 10. Mild gastritis 11. Hiatal hernia 12. Urinary retention -flomax, bladder scans and straight caths Gastric ulcer biopsy: -- Body mucosa showing focal dilation of gastric glands and a few scattered plasma cells in the superficial lamina propria. -- The features are suggestive of an early fundic gland polyp. -- No erosion or ulceration is identified. -- No Helicobacter organisms are seen in a Giemsa stain (positive control concurrently reviewed). -- There is no evidence of malignancy. Plan: Pending SNF placement. Continue with tube feeds, monitor residuals Aspiration precautions Monitor HH Pt examined and plan of care discussed with Dr. Gomes Consultation Date/Type/Reason Admit Date/Time Mar 27, 2018 at 20:08 Initial Consult Date 04/02/18 Requesting Provider: DEENA BASILIO Date/Time of Note DATE: 05/19/18 TIME: 08:01 24 HR Interval Summary Free Text/Dictation Stable. No acute changes. Tolerating tube feeds at 70cc/hr. Last bm yesterday. No evidence of GI bleeding. Exam/Review of Systems Exam Vitals Vital Signs Date Temp Pulse Resp B/P (MAP) Pulse Ox O2 O2 Flow FiO2 Time Delivery Rate 05/19/18 98.0 80 18 109/53 97 Room Air 07:15 (71) Intake and Output 05/18/18 05/18/18 05/19/18 1515:00 23:00 07:00 IntakeIntake Total 600 ml 1620 ml 1140 ml OutputOutput Total 1000 ml 650 ml 1000 ml BalanceBalance -400 ml 970 ml 140 ml Constitutional: alert Head: normocephalic Eyes: nl sclera, PERRL Respiratory: clear to auscultation, diminished breath sounds Cardiovascular: regular rate and rhythm Gastrointestinal: soft, non-tender Neurological: confused Results Result Diagram: 05/17/1854005/17/18540 Medications Medication Current Medications Ascorbic Acid (Vitamin C) 500 mg DAILY NGT Last administered on 05/18/18 09:18; Admin Dose 500 MG; Start 04/09/18 at 14:00 Zinc Sulfate (Zinc Sulfate) 220 mg DAILY NGT Last administered on 05/18/18 09:18; Admin Dose 220 MG; Start 04/10/18 at 09:00 Lansoprazole (Prevacid) 30 mg BID@0600,1800 PO Last administered on 05/19/18 05:27; Admin Dose 30 MG; Start 04/14/18 at 18:00 Morphine Sulfate (morphine) 6 mg Q4H PRN NGT SEVERE PAIN LEVEL 7-10; Start 04/30/18 at 21:30 Tamsulosin HCl (Flomax) 0.4 mg BID PO Last administered on 05/18/18 20:23; Admin Dose 0.4 MG; Start 05/12/18 at 21:00 Polyethylene Glycol (Miralax) 17 gm DAILY GTB Last administered on 05/18/18 09:18; Admin Dose 17 GM; Start 05/14/18 at 09:00 Bethanechol Chloride (Urecholine) 25 mg TID PO Last administered on 05/18/18 20:23; Admin Dose 25 MG; Start 05/14/18 at 21:00 SOREN DOVE May 19, 2018 08:03
[2018-05-19] MEDS: ZINC SULFATE 220 MG CAP NGT SCH (10:19)
[2018-05-19] MEDS: POLYETHYLENE GLYCOL 17 GM PACKET GTB SCH (10:19)
[2018-05-19] MEDS: BETHANECHOL 25 MG TAB PO SCH ×3 (10:19→21:10)
[2018-05-19] MEDS: ASCORBIC ACID 500 MG TAB NGT SCH (10:20)
[2018-05-19] MEDS: TAMSULOSIN (SR) 0.4 MG CAP PO SCH ×2 (10:20→21:11)
--- NOTE | 2018-05-19 10:58 | CONS ---
Assessment/Plan Assessment/Plan Assessment/Plan (Daily) 1. Acute kidney injury on CKD due to ATN + prerenal azotemia 2. acute blood loss anemia- 3. acute hyperkalemia- now resolved 4. acute hypoxemic respiratory failure 5. Sepsis due to acute UTI 6. Severe metabolic acidosis due to FLORES 7. Hypernatremia - resolved 8. Upper GI bleeding 9. H/o BPH on Flomax Plan: BUN/Cr 24/0.8 , WBC still high 13.1, monitor electrolytes and replace as needed Renal US showed No evidence of hydronephrosis or mass, Nonobstructing intrarenal calculi are seen in the mid right kidney measuring 4 mm in 7 mm. 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.8 x 6.7 x 8.3 cm Flomax 0,4 mg PO BID SNF placement in progress will follow up Consultation Date/Type/Reason Admit Date/Time Mar 27, 2018 at 20:08 Initial Consult Date 03/31/18 Type of Consult NEPHROLOGY Requesting Provider: DEENA BASILIO Date/Time of Note DATE: 05/19/18 TIME: 10:57 24 HR Interval Summary Free Text/Dictation no acute events, BP stable, Exam/Review of Systems Exam Vitals Vital Signs Date Temp Pulse Resp B/P (MAP) Pulse Ox O2 O2 Flow FiO2 Time Delivery Rate 05/19/18 98.0 80 18 109/53 97 Room Air 07:15 (71) Intake and Output 05/18/18 05/18/18 05/19/18 1515:00 23:00 07:00 IntakeIntake Total 600 ml 1620 ml 1140 ml OutputOutput Total 1000 ml 650 ml 1000 ml BalanceBalance -400 ml 970 ml 140 ml Exam Constitutional: alert Neck: supple, non-tender Respiratory: clear to auscultation, normal air movement, diminished breath sounds Cardiovascular: regular rate and rhythm, nl pulses Gastrointestinal: soft, non-tender Musculoskeletal: nl extremities to inspection Results Result Diagram: 05/17/18 0541 05/17/18540 Medications Medication Current Medications Ascorbic Acid (Vitamin C) 500 mg DAILY NGT Last administered on 05/19/18at 10:20; Admin Dose 500 MG; Start 04/09/18 at 14:00 Zinc Sulfate (Zinc Sulfate) 220 mg DAILY NGT Last administered on 05/19/18at 10:19; Admin Dose 220 MG; Start 04/10/18 at 09:00 Lansoprazole (Prevacid) 30 mg BID@0600,1800 PO Last administered on 05/19/18at 05:27; Admin Dose 30 MG; Start 04/14/18 at 18:00 Morphine Sulfate (morphine) 6 mg Q4H PRN NGT SEVERE PAIN LEVEL 7-10; Start 04/30/18 at 21:30 Tamsulosin HCl (Flomax) 0.4 mg BID PO Last administered on 05/19/18at 10:20; Admin Dose 0.4 MG; Start 05/12/18 at 21:00 Polyethylene Glycol (Miralax) 17 gm DAILY GTB Last administered on 05/19/18 10:19; Admin Dose 17 GM; Start 05/14/18 at 09:00 Bethanechol Chloride (Urecholine) 25 mg TID PO Last administered on 05/19/18 10:19; Admin Dose 25 MG; Start 05/14/18 at 21:00 STEVEN BLANCO MD May 19, 2018 10:57
[2018-05-19 14:10] VITALS: BP 122/58; PULSE 87; RESP 18
--- NOTE | 2018-05-19 15:31 | PN ---
Date/Time of Note Date/Time of Note DATE: 05/19/18 TIME: 15:27 Assessment/Plan VTE Prophylaxis Risk score (from Ns)>0 risk: 5 SCD applied (from Ns): Yes Pharmacological prophylaxis: NA/contraindicated Pharm contraindication: bleeding Lines/Catheters IV [facility] Saline Lock Urinary Cath still in place: Yes Reason Cath still needed: urinary retention Assessment/Plan Hospital Course Patient remains hemodynamically stable, afebrile good urine output Via Hnoeycutt catheter, DC planning, discussed with case management no placement to group home facility yet. Assessment/Plan -Urinary retention, continue Honeycutt catheter -VRE urinary tract infection, completed treatment with Zyvox. -Possible aspiration pneumonia, continue antibiotics per ID. -Anemia secondary to GI bleed. Dr. Gomes is following in GI consultation. Transfuse as needed, monitor hemoglobin and hematocrit. -Bleeding gastric ulcers, s/p hemostasis with placement of hemoclip during EGD by Dr Guallpa on 04/03/18. Continue Protonix. -S/p septic shock secondary to urinary tract infection, continue antibiotics per ID. Dr. Guzman is following in infection disease consultation. -Hypoxemic respiratory failure, resolving. Dr. Nam is following in pulmonology consultation. -Acute kidney injury, resolved. Dr. Senior following in nephrology consultation. -Hypernatremia, resolved. 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 -Protein calorie malnutrition -S/P EGD 05/06 in which PEG was not able to be placed, status post G-tube placement by radiology -No family, patient is appropriate for PEG placement and DNR status as per decision of the bioethics committee Further recommendations based on clinical course. Plan of care discussed with Dr. Kiser. Result Diagram: 05/17/18 0505/17/18 05 Exam/Review of Systems Exam Vitals Vital Signs Date Temp Pulse Resp B/P (MAP) Pulse Ox O2 O2 Flow FiO2 Time Delivery Rate 05/19/18 98.6 87 18 122/58 96 14:10 (79) 05/19/18 Room Air 07:15 Intake and Output 05/18/18 05/18/18 05/19/18 1515:00 23:00 07:00 IntakeIntake Total 600 ml 1620 ml 1140 ml OutputOutput Total 1000 ml 650 ml 1000 ml BalanceBalance -400 ml 970 ml 140 ml Constitutional: alert, oriented Respiratory: clear to auscultation Cardiovascular: nl pulses Gastrointestinal: soft, non-tender, other (G-tube) Genitourinary - Male: other (Honeycutt catheter) Extremities: normal pulses Neurological: nl mental status, confused Medications Medication Current Medications Ascorbic Acid (Vitamin C) 500 mg DAILY NGT Last administered on 05/19/18 10:20; Admin Dose 500 MG; Start 04/09/18 at 14:00 Zinc Sulfate (Zinc Sulfate) 220 mg DAILY NGT Last administered on 05/19/18 10:19; Admin Dose 220 MG; Start 04/10/18 at 09:00 Lansoprazole (Prevacid) 30 mg BID@0600,1800 PO Last administered on 05/19/18 05:27; Admin Dose 30 MG; Start 04/14/18 at 18:00 Morphine Sulfate (morphine) 6 mg Q4H PRN NGT SEVERE PAIN LEVEL 7-10; Start 04/30/18 at 21:30 Tamsulosin HCl (Flomax) 0.4 mg BID PO Last administered on 05/19/18 10:20; Admin Dose 0.4 MG; Start 05/12/18 at 21:00 Polyethylene Glycol (Miralax) 17 gm DAILY GTB Last administered on 05/19/18 10:19; Admin Dose 17 GM; Start 05/14/18 at 09:00 Bethanechol Chloride (Urecholine) 25 mg TID PO Last administered on 05/19/18 13:50; Admin Dose 25 MG; Start 05/14/18 at 21:00 JUDY CORNEJO May 19, 2018 15:31
[2018-05-19 19:59] VITALS: BP 115/54; PULSE 89; RESP 18
[2018-05-20 01:20] VITALS: BP 107/54; PULSE 74; RESP 18
[2018-05-20] MEDS: LANSOPRAZOLE 30 MG CAP PO SCH ×2 (05:31→18:28)
[2018-05-20 07:26] VITALS: BP 140/60; PULSE 81; RESP 16
[2018-05-20] MEDS: ZINC SULFATE 220 MG CAP NGT SCH (09:17)
[2018-05-20] MEDS: BETHANECHOL 25 MG TAB PO SCH ×3 (09:17→20:56)
[2018-05-20] MEDS: TAMSULOSIN (SR) 0.4 MG CAP PO SCH ×2 (09:17→20:56)
[2018-05-20] MEDS: POLYETHYLENE GLYCOL 17 GM PACKET GTB SCH (09:17)
[2018-05-20] MEDS: ASCORBIC ACID 500 MG TAB NGT SCH (09:17)
--- NOTE | 2018-05-20 10:28 | CONS ---
Assessment/Plan Assessment/Plan Assessment/Plan (Daily) 1. Acute kidney injury on CKD due to ATN + prerenal azotemia 2. acute blood loss anemia- 3. acute hyperkalemia- now resolved 4. acute hypoxemic respiratory failure 5. Sepsis due to acute UTI 6. Severe metabolic acidosis due to FLORES 7. Hypernatremia - resolved 8. Upper GI bleeding 9. H/o BPH on Flomax Plan: BUN/Cr 40/1.02 , Hb 8.3 monitor electrolytes and replace as needed Renal US showed No evidence of hydronephrosis or mass, Nonobstructing intrarenal calculi are seen in the mid right kidney measuring 4 mm in 7 mm. 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.8 x 6.7 x 8.3 cm Flomax 0,4 mg PO BID SNF placement in progress will follow up Consultation Date/Type/Reason Admit Date/Time Mar 27, 2018 at 20:08 Initial Consult Date 03/31/18 Type of Consult NEPHROLOGY Requesting Provider: DEENA BASILIO Date/Time of Note DATE: 05/20/18 TIME: 10:27 Exam/Review of Systems Exam Vitals Vital Signs Date Temp Pulse Resp B/P (MAP) Pulse Ox O2 O2 Flow FiO2 Time Delivery Rate 05/20/18 97.8 81 16 140/60 98 07:26 (86) 05/19/18 Room Air 07:15 Intake and Output 05/19/18 05/19/18 05/20/18 1515:00 23:00 07:00 IntakeIntake Total 900 ml 1620 ml 1140 ml OutputOutput Total 650 ml 700 ml 1100 ml BalanceBalance 250 ml 920 ml 40 ml Exam Constitutional: alert Neck: supple, non-tender Respiratory: clear to auscultation, normal air movement, diminished breath sounds Cardiovascular: regular rate and rhythm, nl pulses Gastrointestinal: soft, non-tender Musculoskeletal: nl extremities to inspection Results Result Diagram: 05/20/18 0544 05/20/18 0544 Results 24hrs Laboratory Tests Test 05/20/18 05:44 White Blood Count 10.6 Red Blood Count 2.86 L Hemoglobin 8.3 L Hematocrit 26.7 L Mean Corpuscular Volume 93.4 Mean Corpuscular Hemoglobin 29.0 Mean Corpuscular Hemoglobin Concent 31.1 L Red Cell Distribution Width 17.0 H Platelet Count 277 Mean Platelet Volume 12.3 H Immature Granulocytes % 1.700 H Neutrophils % 62.6 Lymphocytes % 18.1 Monocytes % 8.5 Eosinophils % 8.5 H Basophils % 0.6 Nucleated Red Blood Cells % 0.0 Immature Granulocytes # 0.180 H Neutrophils # 6.7 Lymphocytes # 1.9 Monocytes # 0.9 Eosinophils # 0.9 H Basophils # 0.1 Nucleated Red Blood Cells # 0.0 Sodium Level 136 Potassium Level 4.6 Chloride Level 102 Carbon Dioxide Level 32 H Anion Gap 2 L Blood Urea Nitrogen 40 H Creatinine 1.02 Est Glomerular Filtrat Rate mL/min Glucose Level 104 Calcium Level 8.6 Medications Medication Current Medications Ascorbic Acid (Vitamin C) 500 mg DAILY NGT Last administered on 05/20/18 09:17; Admin Dose 500 MG; Start 04/09/18 at 14:00 Zinc Sulfate (Zinc Sulfate) 220 mg DAILY NGT Last administered on 05/20/18 09:17; Admin Dose 220 MG; Start 04/10/18 at 09:00 Lansoprazole (Prevacid) 30 mg BID@0600,1800 PO Last administered on 05/20/18 05:31; Admin Dose 30 MG; Start 04/14/18 at 18:00 Morphine Sulfate (morphine) 6 mg Q4H PRN NGT SEVERE PAIN LEVEL 7-10; Start at 21:30 Tamsulosin HCl (Flomax) 0.4 mg BID PO Last administered on 05/20/18 09:17; Admin Dose 0.4 MG; Start 05/12/18 at 21:00 Polyethylene Glycol (Miralax) 17 gm DAILY GTB Last administered on 05/20/18 09:17; Admin Dose 17 GM; Start 05/14/18 at 09:00 Bethanechol Chloride (Urecholine) 25 mg TID PO Last administered on 05/20/18 09:17; Admin Dose 25 MG; Start 05/14/18 at 21:00 SETVEN BLANCO MD May 20, 2018 10:28
--- NOTE | 2018-05-20 10:48 | CONS ---
Assessment/Plan Assessment/Plan Hospital Course (Demo Recall) 88 yo male presented with urosepsis and respiratory failure and coffee ground emesis 1. Upper GI bleed manifested through coffee ground emesis and melena -s/p EGD -resolved 2. Gastric ulcers, etiology of bleed -resolved 3. Hiatal hernia 4. Anemia secondary to gastric ulcer bleeding -stable but slowly trending down, no active GI bleeding noted, FOB neg 04/16 -monitor closely -stable 5. UTI -VRE in urine cx 05/05 -resolved 6. Dysphagia -g tube placed 7. Malnutrition. -g tube 8. Liver cirrhosis, with positive smooth muscle titer and smooth muscle ab interp POS 9. S/P EGD 05/06 in which PEG was not able to be placed 10. Mild gastritis 11. Hiatal hernia 12. Urinary retention -resolved Gastric ulcer biopsy: -- Body mucosa showing focal dilation of gastric glands and a few scattered plasma cells in the superficial lamina propria. -- The features are suggestive of an early fundic gland polyp. -- No erosion or ulceration is identified. -- No Helicobacter organisms are seen in a Giemsa stain (positive control concurrently reviewed). -- There is no evidence of malignancy. Plan: Pending SNF placement. Continue with tube feeds, monitor residuals Aspiration precautions Monitor HH Pt examined and plan of care discussed with Dr. Goems Consultation Date/Type/Reason Admit Date/Time Mar 27, 2018 at 20:08 Initial Consult Date 04/02/18 Requesting Provider: DEENA BASILIO Date/Time of Note DATE: 05/20/18 TIME: 10:47 24 HR Interval Summary Free Text/Dictation no acute changes. no evidence of GI bleeding. tolerating tube feeds. BM today. Exam/Review of Systems Exam Vitals Vital Signs Date Temp Pulse Resp B/P (MAP) Pulse Ox O2 O2 Flow FiO2 Time Delivery Rate 05/20/18 97.8 81 16 140/60 98 07:26 (86) 05/19/18 Room Air 07:15 Intake and Output 05/19/18 05/19/18 05/20/18 1515:00 23:00 07:00 IntakeIntake Total 900 ml 1620 ml 1140 ml OutputOutput Total 650 ml 700 ml 1100 ml BalanceBalance 250 ml 920 ml 40 ml Constitutional: alert Psych: no complaints Eyes: nl sclera, PERRL Cardiovascular: regular rate and rhythm Gastrointestinal: soft, non-tender Neurological: confused Results Result Diagram: 05/20/18 0544 05/20/18 0544 Results 24hrs Laboratory Tests Test 05/20/18 05:44 White Blood Count 10.6 Red Blood Count 2.86 L Hemoglobin 8.3 L Hematocrit 26.7 L Mean Corpuscular Volume 93.4 Mean Corpuscular Hemoglobin 29.0 Mean Corpuscular Hemoglobin Concent 31.1 L Red Cell Distribution Width 17.0 H Platelet Count 277 Mean Platelet Volume 12.3 H Immature Granulocytes % 1.700 H Neutrophils % 62.6 Lymphocytes % 18.1 Monocytes % 8.5 Eosinophils % 8.5 H Basophils % 0.6 Nucleated Red Blood Cells % 0.0 Immature Granulocytes # 0.180 H Neutrophils # 6.7 Lymphocytes # 1.9 Monocytes # 0.9 Eosinophils # 0.9 H Basophils # 0.1 Nucleated Red Blood Cells # 0.0 Sodium Level 136 Potassium Level 4.6 Chloride Level 102 Carbon Dioxide Level 32 H Anion Gap 2 L Blood Urea Nitrogen 40 H Creatinine 1.02 Est Glomerular Filtrat Rate mL/min Glucose Level 104 Calcium Level 8.6 Medications Medication Current Medications Ascorbic Acid (Vitamin C) 500 mg DAILY NGT Last administered on 05/20/18at 09:17; Admin Dose 500 MG; Start 04/09/18 at 14:00 Zinc Sulfate (Zinc Sulfate) 220 mg DAILY NGT Last administered on 05/20/18at 09:17; Admin Dose 220 MG; Start 04/10/18 at 09:00 Lansoprazole (Prevacid) 30 mg BID@0600,1800 PO Last administered on 05/20/18at 05:31; Admin Dose 30 MG; Start 04/14/18 at 18:00 Morphine Sulfate (morphine) 6 mg Q4H PRN NGT SEVERE PAIN LEVEL 7-10; Start 04/30/18 at 21:30 Tamsulosin HCl (Flomax) 0.4 mg BID PO Last administered on 05/20/18at 09:17; Admin Dose 0.4 MG; Start 05/12/18 at 21:00 Polyethylene Glycol (Miralax) 17 gm DAILY GTB Last administered on 05/20/18at 09:17; Admin Dose 17 GM; Start 05/14/18 at 09:00 Bethanechol Chloride (Urecholine) 25 mg TID PO Last administered on 05/20/18at 09:17; Admin Dose 25 MG; Start 05/14/18 at 21:00 SOREN DOVE May 20, 2018 10:48
--- NOTE | 2018-05-20 14:00 | DS ---
Date/Time of Note Date/Time of Note DATE: 05/20/18 TIME: 13:58 Discharge Summary Admission/Discharge Info Admit Date/Time Mar 27, 2018 at 20:08 Discharge Date/Time Patient Condition: Stable Hx of Present Illness Patient with dementia was transferred from [facility] because of possible GI bleed and altered mental status. Patient was found to have an urinary tract infection and will be admitted for further treatment. Hospital Course Patient discharged to [facility] facility -Urinary retention, failed trial with Flomax and Urecholine unable to urinate requiring in and out catheter every 8 hours, continue Honeycutt catheter -VRE urinary tract infection, completed treatment with Zyvox. -Possible aspiration pneumonia, continue antibiotics per ID. -Anemia secondary to GI bleed. Dr. Gomes is following in GI consultation. Transfuse as needed, monitor hemoglobin and hematocrit. -Bleeding gastric ulcers, s/p hemostasis with placement of hemoclip during EGD by Dr Guallpa on 04/03/18. Continue Protonix. -S/p septic shock secondary to urinary tract infection, continue antibiotics per ID. Dr. Guzman is following in infection disease consultation. -Hypoxemic respiratory failure, resolving. Dr. Nam is following in pulmonol ogy consultation. -Acute kidney injury, resolved. Dr. Senior following in nephrology consultation. -Hypernatremia, resolved. 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 -Protein calorie malnutrition -S/P EGD 05/06 in which PEG was not able to be placed, status post G-tube placement by radiology -No family, patient is appropriate for PEG placement and DNR status as per decision of the bioethics committee Plan of care discussed with Dr. Kiser. Home Meds Reported Medications Triamcinolone Acetonide* (Kenalog*) 0.1%-15GM Cr, 1 APPLIC TOP BID, #1 TUB 03/27/18 Collagenase* (Santyl*) 30 Gm Oint..gm., 1 APPLIC TOP .SOILED PRN for SOILED, #1 TUB 03/27/18 Hydrocodone/Acetaminophen ([place] 5-325 Tablet) 1 Each Tablet, 1 EACH PO Q6H PRN for MILD PAIN LEVEL 1-3, TAB 03/27/18 Hydrocodone/Acetaminophen ([place] 5-325 Tablet) 1 Each Tablet, 1 EACH PO DAILY PRN for WOUND CARE, TAB 03/27/18 Memantine* (Namenda* XR) 28 Mg Cap.spr.24, 28 MG PO DAILY, #30 TAB START TAKING-04/01/18 03/27/18 Memantine* (Namenda* XR) 21 Mg Cap.spr.24, 21 MG PO DAILY, #30 TAB FOR 7 DAYS,STOP TAKING 04/01/18 03/27/18 Enoxaparin Sodium* (Enoxaparin Sodium*) 30 Mg/0.3 Ml Syringe, 30 MG SC DAILY, SYR 03/27/18 Tamsulosin Hcl* (Tamsulosin Hcl*) 0.4 Mg Cap.er.24h, 0.4 MG PO HS, CAP 02/18/18 Protein Supplement (Promod) 946 Ml Liquid, 30 ML PO TID 02/18/18 Ondansetron Hcl* (Zofran*) 4 Mg Tab, 4 MG PO Q6H PRN for NAUSEA AND OR VOMITING, TAB 02/18/18 Multivitamin with Minerals (Multivitamins with Minerals) 1 Each Tablet, 1 EACH PO DAILY, TAB 02/18/18 Lactobacillus Acidophilus* (Lactinex*) 1 Tab Chew, 1 TAB PO BID, TAB 02/18/18 Famotidine* (Famotidine*) 20 Mg Tablet, 20 MG PO DAILY, #30 TAB 02/18/18 Docusate Sodium* (Docusate Sodium*) 100 Mg Capsule, 100 MG PO BID, #60 CAP 02/18/18 Bisacodyl* (Bisacodyl*) 10 Mg Supp, 10 MG IL Q24H for CONSTIPATION, SUPP 02/18/18 Ascorbic Acid (Vitamin C) 500 Mg Tab, 500 MG PO DAILY, TAB 02/18/18 Primary Care Provider Jamie Kiser MD Time spent on discharge: > 30 minutes Pending Labs Laboratory Tests Test 05/20/18 05:44 White Blood Count 10.6 10^3/ul (4.8-10.8) Red Blood Count 2.86 10^6/ul (4.70-6.10) Hemoglobin 8.3 g/dl (14.0-18.0) Hematocrit 26.7 % (42.0-52.0) Mean Corpuscular Volume 93.4 fl (82.0-101.0) Mean Corpuscular Hemoglobin 29.0 pg (29.0-33.0) Mean Corpuscular Hemoglobin Concent 31.1 g/dl (32.0-37.0) Red Cell Distribution Width 17.0 % (11.5-14.5) Platelet Count 277 10^3/UL (140-415) Mean Platelet Volume 12.3 fl (7.4-10.4) Immature Granulocytes % 1.700 % (0.001-0.429) Neutrophils % 62.6 % (39.0-77.0) Lymphocytes % 18.1 % (15.0-51.0) Monocytes % 8.5 % (0.0-11.0) Eosinophils % 8.5 % (0.0-7.0) Basophils % 0.6 % (0.0-2.0) Nucleated Red Blood Cells % 0.0 /100WBC (0.0-0.0) Immature Granulocytes # 0.180 10^3/ul (0.0-0.031) Neutrophils # 6.7 10^3/ul (1.6-7.5) Lymphocytes # 1.9 10^3/ul (0.8-2.9) Monocytes # 0.9 10^3/ul (0.3-0.9) Eosinophils # 0.9 10^3/ul (0.0-0.5) Basophils # 0.1 10^3/ul (0.0-0.1) Nucleated Red Blood Cells # 0.0 10^3/ul (0.0-0.0) Sodium Level 136 mmol/L (135-144) Potassium Level 4.6 mmol/L (3.5-5.1) Chloride Level 102 mmol/L (97-110) Carbon Dioxide Level 32 mmol/L (21-31) Anion Gap 2 (5-13) Blood Urea Nitrogen 40 mg/dl (7-20) Creatinine 1.02 mg/dl (0.61-1.24) Est Glomerular Filtrat Rate mL/min mL/min (>60) Glucose Level 104 mg/dl (70-220) Calcium Level 8.6 mg/dl (8.4-10.2) JUDY CORNEJO May 20, 2018 14:00
[2018-05-20 19:29] VITALS: BP 117/57; PULSE 88; RESP 18
[2018-05-20 20:40] VITALS: BP 109/55; PULSE 80; RESP 18
== END 2018-05-20 22:05 | DRG 871 ==
LOC: E/R 17:51 → 6WM 20:08 → ICU 03-28 13:59 → TEL 04-06 18:35 → 2NE 04-18 12:46
PROVIDERS: ADMIT Internal Medicine; ATTEND Internal Medicine
PROC: 30233N1 Transfusion of Nonautologous Red Blood Cells into Peripheral Vein, Percutaneous Approach (ICD-10-PCS; 2018-03-31)
PROC: 0DB78ZX Excision of Stomach, Pylorus, Via Natural or Artificial Opening Endoscopic, Diagnostic (ICD-10-PCS; 2018-04-03)
PROC: 0W3P8ZZ Control Bleeding in Gastrointestinal Tract, Via Natural or Artificial Opening Endoscopic (ICD-10-PCS; principal; 2018-04-03 08:00)
PROC: 0DB68ZX Excision of Stomach, Via Natural or Artificial Opening Endoscopic, Diagnostic (ICD-10-PCS; 2018-04-03 08:00)
PROC: 0DJ08ZZ Inspection of Upper Intestinal Tract, Via Natural or Artificial Opening Endoscopic (ICD-10-PCS; 2018-05-06)
PROC: 0DH63UZ Insertion of Feeding Device into Stomach, Percutaneous Approach (ICD-10-PCS; 2018-05-08)
DX: A41.9 Sepsis, unspecified organism (principal); K25.0 Acute gastric ulcer with hemorrhage; L89.154 Pressure ulcer of sacral region, stage 4; R65.21 Severe sepsis with septic shock; J96.01 Acute respiratory failure with hypoxia; R53.2 Functional quadriplegia; N17.0 Acute kidney failure with tubular necrosis; E43 Unspecified severe protein-calorie malnutrition; J69.0 Pneumonitis due to inhalation of food and vomit; G93.41 Metabolic encephalopathy; N39.0 Urinary tract infection, site not specified; E87.0 Hyperosmolality and hypernatremia; E87.2 Acidosis; D62 Acute posthemorrhagic anemia; B96.20 Unspecified Escherichia coli [E. coli] as the cause of diseases classified elsewhere; B95.2 Enterococcus as the cause of diseases classified elsewhere; E87.6 Hypokalemia; F03.90 Unspecified dementia, unspecified severity, without behavioral disturbance, psychotic disturbance, mood disturbance, and anxiety; I12.9 Hypertensive chronic kidney disease with stage 1 through stage 4 chronic kidney disease, or unspecified chronic kidney disease; K74.69 Other cirrhosis of liver; K75.4 Autoimmune hepatitis; K44.9 Diaphragmatic hernia without obstruction or gangrene; L89.311 Pressure ulcer of right buttock, stage 1; N18.9 Chronic kidney disease, unspecified; N40.1 Benign prostatic hyperplasia with lower urinary tract symptoms; R13.10 Dysphagia, unspecified; R33.8 Other retention of urine; Z68.20 Body mass index [BMI] 20.0-20.9, adult; Z66 Do not resuscitate; Z16.21 Resistance to vancomycin; Z22.322 Carrier or suspected carrier of Methicillin resistant Staphylococcus aureus; Z86.718 Personal history of other venous thrombosis and embolism; Z79.02 Long term (current) use of antithrombotics/antiplatelets
CPT/HCPCS: 36415; 36430; 36600; 71045; 74176; 75989; 76705; 76775; 80048; 80053; 80076; 80202; 81001; 81003; 82103; 82140; 82270; 82550; 82570; 82803; 82962; 83036; 83605; 83690; 83735; 84100; 84155; 84300; 84443; 84484; 84560; 85025; 85610; 85730; 86038; 86255; 86704; 86709; 86803; 86850; 86900; 86901; 86920; 87040; 87081; 87086; 87340; 88305; 88312; 89190; 92526; 92610; 93005; 96361; 96374; 96375; A4310; C1751; C9113; J0690; J0692; J1265; J1940; J2001; J2185; J2270; J2405; J3370; J3480; J7030; J7040; J7042; J7060; J7070; J7120; P9016; P9047